=== PATIENT | female | born 1945 | race Caucasian/White ===

== ENCOUNTER 2016-12-02 12:06 | Inpatient (IN) | payer MEDICARE, BC ==
[2016-12-02] VITALS (17 sets, daily range): BP systolic 126–172; BP diastolic 62–72; PULSE 88–111; RESP 21–24; TEMP 100.2–103; O2SAT 86–100
[~2016-12-02] VITALS: Ht 167.6 cm; Wt 89.3 kg
--- NOTE | 2016-12-02 12:22 | PD ---
HPI Chief Complaint: Respiratory Distress Time Seen by Provider: 12:17 Travel History International Travel<30 days: No Contact w/Intl Traveler<30days: No Traveled to known affect area: No History of Present Illness HPI 71-year-old female presents to the emergency department via EMS for evaluation of fever, shortness breath, vomiting, diarrhea, abdominal pain She reports that she's been short of breath for the past 2 weeks, but worsened in the past 2 days. Shes on vacation from the [facility]. Patient has been seeing a director cardiac for her shortness of breath, does not have any results. She states that she is not a current smoker, but a previous smoker. She is also complaining of abdominal pain that started 2 days ago with vomiting and diarrhea. Patient has severe tenderness to mild palpation. She has history of [place]. She states she had CHF in the past, but states she is not currently have it. She does not remember what medications she is currently on. She is unsure when she started running a fever. EMS gave her 500 mL normal saline IV bolus, Zofran 4 mg IV. Patient reports extreme fatigue. PFSH Past Medical History Cardiovascular Problems: Yes ?: Not Social History Alcohol Use: No Tobacco Use: No (previous) Substance Use: No Allergies-Medications (Allergen,Severity, Reaction): Coded Allergies: No Known Allergies (Unverified , 12/02/16) Reported Meds & Prescriptions Reported Meds & Active Scripts Active Reported Acidophilus Probiotic (Lactobacillus) 100 Mg (1 Billion Cell) Cap 2 Tab PO DAILY Vitamin D-1000 (Cholecalciferol) 1,000 Unit Tab 2,000 Units PO DAILY Aspirin 81 (Aspirin) 81 Mg Tabdr 81 Mg PO DAILY Rosuvastatin (Rosuvastatin Calcium) 40 Mg Tab 40 Mg PO DAILY Patanol Opth 0.1% (Olopatadine HCl) 0.1 % Drops 1 Drop EACH EYE BID PRN Nitrostat SL (Nitroglycerin) 0.4 Mg Subl 0.4 Mg SL DIRECTED PRN 1 tablet under the tongue as needed for chest pain. Repeat every 5 minutes for a total of 3 DOSES or call 911 if NO relief. Furosemide 20 Mg Tab 20 Mg PO DAILY Celecoxib 200 Mg Cap 200 Mg PO HS Metoprolol Succinate ER 24 HR (Metoprolol Succinate) 50 Mg Tab 50 Mg PO DAILY Gabapentin 300 Mg Cap 300 Mg PO TID Ezetimibe 10 Mg Tab 10 Mg PO DAILY Cephalexin 500 Mg Cap 500 Mg PO DIRECTED FOR DENTIST VISIT Omeprazole 40 Mg Cap 40 Mg PO DAILY Review of Systems Except as stated in HPI: all other systems reviewed are Neg Physical Exam Narrative GENERAL: Well-nourished, well-developed female patient, temp 100.2 Orally. SKIN: Focused skin assessment warm/dry. HEAD: Normocephalic. Atraumatic. EYES: No scleral icterus. No injection or drainage. NECK: Supple, trachea midline. No JVD or lymphadenopathy. CARDIOVASCULAR: Regular rate and rhythm without murmurs, gallops, or rubs. Bilateral radial and pedal pulses 2+. RESPIRATORY: Breath sounds equal bilaterally. Patient is using accessory muscles. Lung sounds diminished. Patient is hypoxic on room air, tachypneic. GASTROINTESTINAL: Abdomen distended, severe diffuses tenderness to palpation. MUSCULOSKELETAL: No cyanosis, or edema. BACK: Nontender without obvious deformity. No CVA tenderness. Data Data Last Documented VS Vital Signs Date Time Temp Pulse Resp B/P (MAP) Pulse Ox O2 Delivery O2 Flow Rate FiO2 12/02/16 15:00 101.8 98 22 131/66 (87) 98 Non-Rebreather 15.00 Orders Orders Complete Blood Count With Diff (12/02/16 12:17) Comprehensive Metabolic Panel (12/02/16 12:17) B-Type Natriuretic Peptide (12/02/16 12:17) Act Partial Throm Time (Ptt) (12/02/16 12:17) Prothrombin Time / Inr (Pt) (12/02/16 12:17) Magnesium (Mg) (12/02/16 12:17) Ckmb (Isoenzyme) Profile (12/02/16 12:17) Troponin I (12/02/16 12:17) Arterial Blood Gas (Abg) (12/02/16 12:17) Urinalysis - C+S If Indicated (12/02/16 12:17) Blood Culture (12/02/16 12:17) Iv Access Insert/Monitor (12/02/16 12:17) Electrocardiogram (12/02/16 12:17) Ecg Monitoring (12/02/16 12:17) Oximetry (12/02/16 12:17) Oxygen Administration (12/02/16 12:17) Chest, Single Ap (12/02/16 12:17) Cath For Specimen (12/02/16 12:17) Lactic Acid Sepsis Protocol (12/02/16 12:17) Lipase (12/02/16 12:17) Sodium Chlor 0.9% 1000 Ml Inj (Ns 1000 M (12/02/16 12:30) Sodium Chlor 0.9% 1000 Ml Inj (Ns 1000 M (12/02/16 12:30) Morphine Inj (Morphine Inj) (12/02/16 12:45) Acetaminophen Supp (Tylenol Supp) (12/02/16 13:00) Acetaminophen (Tylenol) (12/02/16 13:00) Prochlorperazine Inj (Compazine Inj) (12/02/16 13:15) Urine Culture (12/02/16 12:40) Metoclopramide Inj (Reglan Inj) (12/02/16 13:30) Ns + Kcl 40 Meq Inj (Ns + Kcl 40 Meq Inj (12/02/16 14:00) CKMB (12/02/16 12:40) CKMB% (12/02/16 12:40) Ct Abd/Pel W/O Iv Contrast (12/02/16 ) Vancomycin Inj (Vancomycin Inj) (12/02/16 14:00) Piperacil-Tazo 3.375 Gm Premix (Zosyn 3. (12/02/16 14:00) Magnesium Sulfate 1 Gm Premix (Magnesium (12/02/16 14:15) Admit Order (Ed Use Only) (12/02/16 16:06) Labs Laboratory Tests Test 12/02/16 12:40 12/02/16 15:20 White Blood Count 3.1 TH/MM3 Red Blood Count 3.74 MIL/MM3 Hemoglobin 11.5 GM/DL Hematocrit 33.7 % Mean Corpuscular Volume 90.2 FL Mean Corpuscular Hemoglobin 30.7 PG Mean Corpuscular Hemoglobin Concent 34.0 % Red Cell Distribution Width 14.6 % Platelet Count 115 TH/MM3 Mean Platelet Volume 7.6 FL Neutrophils (%) (Auto) 86.8 % Lymphocytes (%) (Auto) 8.7 % Monocytes (%) (Auto) 3.8 % Eosinophils (%) (Auto) 0.2 % Basophils (%) (Auto) 0.5 % Neutrophils # (Auto) 2.7 TH/MM3 Lymphocytes # (Auto) 0.3 TH/MM3 Monocytes # (Auto) 0.1 TH/MM3 Eosinophils # (Auto) 0.0 TH/MM3 Basophils # (Auto) 0.0 TH/MM3 CBC Comment DIFF FINAL Differential Comment Prothrombin Time 13.9 SEC Prothromb Time International Ratio 1.2 RATIO Activated Partial Thromboplast Time 24.3 SEC Urine Color YELLOW Urine Turbidity HAZY Urine pH 5.5 Urine Specific [place] 1.009 Urine Protein 30 mg/dL Urine Glucose (UA) NEG mg/dL Urine Ketones TRACE mg/dL Urine Occult Blood MOD Urine Nitrite NEG Urine Bilirubin NEG Urine Urobilinogen 2.0 MG/DL Urine Leukocyte Esterase TRACE Urine RBC 2 /hpf Urine WBC 12 /hpf Urine Squamous Epithelial Cells <1 /hpf Urine Amorphous Sediment FEW Urine Bacteria MANY /hpf Microscopic Urinalysis Comment CATH-CULTURE IND Blood Gas Puncture Site RT RADIAL Blood Gas Patient Temperature 98.6 Blood Gas HCO3 23 mmol/L Blood Gas Base Excess -0.3 mmol/L Blood Gas Oxygen Saturation 88 % Arterial Blood pH 7.43 Arterial Blood Partial Pressure CO2 36 mmHg Arterial Blood Partial Pressure O2 58 mmHG Arterial Blood Oxygen Content 14.2 Vol % Arterial Blood Carboxyhemoglobin 1.6 % Arterial Blood Methemoglobin 0.7 % Blood Gas Hemoglobin 11.5 G/DL Oxygen Delivery Device NASAL CANNULA Blood Gas Liter Flow 5 L/M Blood Urea Nitrogen 19 MG/DL Creatinine 2.44 MG/DL Random Glucose 123 MG/DL Total Protein 6.7 GM/DL Albumin 2.9 GM/DL Calcium Level 7.5 MG/DL Magnesium Level 0.8 MG/DL Alkaline Phosphatase 514 U/L Aspartate Amino Transf (AST/SGOT) 976 U/L Alanine Aminotransferase (ALT/SGPT) 228 U/L Total Bilirubin 3.2 MG/DL Sodium Level 140 MEQ/L Potassium Level 1.7 MEQ/L Chloride Level 105 MEQ/L Carbon Dioxide Level 22.8 MEQ/L Anion Gap 12 MEQ/L Estimat Glomerular Filtration Rate 19 ML/MIN Lactic Acid Level 2.5 mmol/L Total Creatine Kinase 735 U/L Creatine Kinase MB 1.0 NG/ML Creatine Kinase MB % 0.1 % Troponin I 0.07 NG/ML B-Type Natriuretic Peptide 193 PG/ML Lipase 187 U/L MDM Medical Decision Making Medical Screen Exam Complete: Yes Emergency Medical Condition: Yes Medical Record Reviewed: Yes Interpretation(s) chest x-ray = CONCLUSION: Cardiomegaly. Left lower lobe atelectasis versus pneumonia. CT abdomen/pelvis - CONCLUSION: 1. No evidence of acute abdominal or pelvic process. No masses are identified. 2. Cholelithiasis 3. Left lower lobe atelectasis versus pneumonia. 4. A large hiatal hernia is present. 5. Diverticulosis without evidence of diverticulitis. Differential Diagnosis sepsis vs. pneumonia vs. UTI vs. electrolyte abnormality vs. dehydration vs. diverticulitis vs. SBO Narrative Course 71 year old female presents to the emergency department for evaluation of fever , shortness of breath, abdominal pain, vomiting, diarrhea. EKG, CBC, CMP, Lipase, BNP, Magnesium, CK, Troponin, PTT, PT/INR, lactic acid, UA, blood cultures x2, ABG are ordered and pending. Chest x-ray is ordered and pending. Patient is given 2 L IV NS bolus, Tylenol 650 mg NJ, Morphine 2 mg IV for pain. EKG shows sinus tachycardia, heart rate 101, PVC. CBC shows leukopenia 3.1, neutrophil percentage 86.8. CMP shows hypokalemia of 1.7, BUN 19, creatinine 2.44, glucose 123. Lipase is 187. BNP is 193. CK is 735. Troponin is 0.07. Magnesium is 0.8. Lactic acid is 2.5. UA shows trace leukocyte esterase, 12 WBC. ABG shows O2 sat 88, pO2 58. Chest x-ray shows Cardiomegaly. Left lower lobe atelectasis versus pneumonia. Patient is given Vancomycin 1 gm IV, Zosyn 3.375 gm IV. Patient is started on NS with 40 meq KCL at 125 ml/hr. She is given Magnesium 1 gm IV x2. Patient is now oxygen saturation of 86% on 6 L O2 NC. She is placed on a nonrebreather. CT abdomen/pelvis without contrast due to elevated creatinine is ordered and shows 1. No evidence of acute abdominal or pelvic process. No masses are identified; 2. Cholelithiasis; 3. Left lower lobe atelectasis versus pneumonia; 4. A large hiatal hernia is present; 5. Diverticulosis without evidence of diverticulitis. Videogame Designer is paged for admission. Dr. Menditea accepted admission. She would like the patient to be placed on a 50% venti mask. Respiratory is notified. Sepsis Criteria SIRS Criteria (2 or more): Temp > 100.9 or < 96.8, Heart rate over 90, WBC > 29732, < 4000 or > 10% bands Sepsis Criteria (SIRS+source): Infect source susp/known Severe Sepsis (+one): Lactate >2 Diagnosis Primary Impression: Pneumonia Qualified Codes: J18.1 - Lobar pneumonia, unspecified organism Additional Impressions: Sepsis Qualified Codes: A41.9 - Sepsis, unspecified organism UTI (urinary tract infection) Qualified Codes: N30.00 - Acute cystitis without hematuria Hypokalemia Hypomagnesemia Acute kidney injury Admitting Information Admitting Physician Requests: Admit Giuliana Mclaughlin Dec 02, 2016 12:22
[2016-12-02] MEDS ORDERED: SODIUM CHLOR 0.9% 1000 ML INJ 1,000 ML IV ONE ×3 (12:30→22:15)
[2016-12-02] MEDS ORDERED: MORPHINE SULFATE 2 MG/ML INJ IV PUSH ONE (12:45)
[2016-12-02 12:57] LABS: AUTOMATED NEUTROPHIL # 2.7 TH/MM3 (1.8-7.7); BASOPHIL % 0.5 % (0.0-2.0); EOSINOPHIL % 0.2 % (0.0-4.0); HEMATOCRIT 33.7 % (35.0-46.0); HEMOGLOBIN 11.5 GM/DL (11.6-15.3); LYMPH % 8.7 % (9.0-44.0); LYMPHOCYTE # 0.3 TH/MM3 (1.0-4.8); MEAN CELL VOLUME 90.2 FL (80.0-100.0); MEAN CORPUSCULAR HEMOGLOBIN 30.7 PG (27.0-34.0); MEAN PLATELET VOLUME 7.6 FL (7.0-11.0); MONO % 3.8 % (0.0-8.0); MONOCYTE # 0.1 TH/MM3 (0-0.9); NEUT % 86.8 % (16.0-70.0); PLATELET COUNT 115 TH/MM3 (150-450); RED BLOOD COUNT 3.74 MIL/MM3 (4.00-5.30); RED CELL DISTRIBUTION WIDTH 14.6 % (11.6-17.2); WHITE BLOOD COUNT 3.1 TH/MM3 (4.0-11.0)
[2016-12-02] MEDS ORDERED: ACETAMINOPHEN 650 MG SUPP RECTAL ONE (13:00)
[2016-12-02] MEDS ORDERED: ACETAMINOPHEN 325 MG TAB PO ONE (13:00)
[2016-12-02 13:05] LABS: INTERNATIONAL NORMALIZED RATIO 1.2 RATIO; PROTHROMBIN TIME - PATIENT 13.9 SEC (9.8-11.6)
[2016-12-02 13:13] LABS: AMORPHOUS SEDIMENT, URINE FEW; BACTERIA, URINE MANY /hpf; BILIRUBIN, URINE NEG (NEG); BLOOD, URINE MOD (NEG); GLUCOSE,URINE NEG (NEG); KETONE, URINE TRACE mg/dL (NEG); NITRITE,URINE NEG (NEG); PH, URINE 5.5 (5.0-8.5); SQUAMOUS EPITHELIAL CELL URINE <1 /hpf (0-5); URINE COLOR YELLOW (YELLW/STRAW); URINE LEUKOCYTE ESTERASE TRACE (NEG)
[2016-12-02] MEDS ORDERED: PROCHLORPERAZINE INJ 10 MG/2 ML VIAL IV PUSH ONE (13:15)
[2016-12-02 13:23] LABS: LACTIC ACID SEPSIS PROTOCOL 2.5 mmol/L (0.4-2.0)
[2016-12-02] MEDS ORDERED: METOCLOPRAMIDE HCL 10 MG/2 ML VIAL IV PUSH ONE (13:30)
[2016-12-02 13:32] LABS: ALBUMIN 2.9 GM/DL (3.4-5.0); ALKALINE PHOSPHATASE 514 U/L (45-117); ALT (GPT) 228 U/L (10-53); AST (GOT) 976 U/L (15-37); BICARBONATE 22.8 MEQ/L (21.0-32.0); BLOOD UREA NITROGEN 19 MG/DL (7-18); CALCIUM 7.5 MG/DL (8.5-10.1); CHLORIDE 105 MEQ/L (98-107); CREATININE 2.44 MG/DL (0.50-1.00); GLOMERULAR FILTRATION RATE 19 ML/MIN (>89); GLUCOSE,RANDOM 123 MG/DL (74-106); LIPASE 187 U/L (73-393); MAGNESIUM 0.8 MG/DL (1.5-2.5); SODIUM (NA) 140 MEQ/L (136-145); TOTAL BILIRUBIN ADULT 3.2 MG/DL (0.2-1.0); TOTAL PROTEIN 6.7 GM/DL (6.4-8.2); TROPONIN I 0.07 NG/ML (0.02-0.05)
[2016-12-02] MEDS ORDERED: NS + KCL 40 MEQ INJ 1,000 ML IV SCH (14:00)
[2016-12-02] MEDS ORDERED: PIPERACIL-TAZO 3.375 GM PREMIX 50 ML IV ONE (14:00)
[2016-12-02] MEDS ORDERED: VANCOMYCIN INJ 1,000 MG in SODIUM CHLOR 0.9% 250 ML INJ 250 ML IV ONE (14:00)
--- NOTE | 2016-12-02 14:04 | PD ---
Physical Exam Date Seen by Provider: Dec 02, 2016 Time Seen by Provider: 13:00 Narrative I am seeing this patient with IRMA Hoover. This is a 71-year-old female presents today with complaints of fever, weakness, abdominal pain. She reports the abdominal pain has been present for about 2 days. She reports cough and shortness of breath for up to a month. She reports nausea vomiting. Patient also reports stronger colored urine smell than normal. Data Data Last Documented VS Vital Signs Date Time Temp Pulse Resp B/P (MAP) Pulse Ox O2 Delivery O2 Flow Rate FiO2 12/02/16 15:00 101.8 98 22 131/66 (87) 98 Non-Rebreather 15.00 Orders Orders Complete Blood Count With Diff (12/02/16:17) Comprehensive Metabolic Panel (12/02/16:17) B-Type Natriuretic Peptide (12/02/16 12:17) Act Partial Throm Time (Ptt) (12/02/16 12:17) Prothrombin Time / Inr (Pt) (12/02/16 12:17) Magnesium (Mg) (12/02/16 12:17) Ckmb (Isoenzyme) Profile (12/02/16 12:17) Troponin I (12/02/16 12:17) Arterial Blood Gas (Abg) (12/02/16 12:17) Urinalysis - C+S If Indicated (12/02/16 12:17) Blood Culture (12/02/16 12:17) Iv Access Insert/Monitor (12/02/16 12:17) Electrocardiogram (12/02/16 12:17) Ecg Monitoring (12/02/16 12:17) Oximetry (12/02/16 12:17) Oxygen Administration (12/02/16 12:17) Chest, Single Ap (12/02/16 12:17) Cath For Specimen (12/02/16 12:17) Lactic Acid Sepsis Protocol (12/02/16 12:17) Lipase (12/02/16 12:17) Sodium Chlor 0.9% 1000 Ml Inj (Ns 1000 M (12/02/16 12:30) Sodium Chlor 0.9% 1000 Ml Inj (Ns 1000 M (12/02/16 12:30) Morphine Inj (Morphine Inj) (12/02/16 12:45) Acetaminophen Supp (Tylenol Supp) (12/02/16 13:00) Acetaminophen (Tylenol) (12/02/16 13:00) Prochlorperazine Inj (Compazine Inj) (12/02/16 13:15) Urine Culture (12/02/16 12:40) Metoclopramide Inj (Reglan Inj) (12/02/16 13:30) Ns + Kcl 40 Meq Inj (Ns + Kcl 40 Meq Inj (12/02/16 14:00) CKMB (12/02/16 12:40) CKMB% (12/02/16 12:40) Ct Abd/Pel W/O Iv Contrast (12/02/16 ) Vancomycin Inj (Vancomycin Inj) (12/02/16 14:00) Piperacil-Tazo 3.375 Gm Premix (Zosyn 3. (12/02/16 14:00) Magnesium Sulfate 1 Gm Premix (Magnesium (12/02/16 14:15) Admit Order (Ed Use Only) (12/02/16 16:06) Labs Laboratory Tests Test 12/02/16 12:40 12/02/16 15:20 White Blood Count 3.1 TH/MM3 Red Blood Count 3.74 MIL/MM3 Hemoglobin 11.5 GM/DL Hematocrit 33.7 % Mean Corpuscular Volume 90.2 FL Mean Corpuscular Hemoglobin 30.7 PG Mean Corpuscular Hemoglobin Concent 34.0 % Red Cell Distribution Width 14.6 % Platelet Count 115 TH/MM3 Mean Platelet Volume 7.6 FL Neutrophils (%) (Auto) 86.8 % Lymphocytes (%) (Auto) 8.7 % Monocytes (%) (Auto) 3.8 % Eosinophils (%) (Auto) 0.2 % Basophils (%) (Auto) 0.5 % Neutrophils # (Auto) 2.7 TH/MM3 Lymphocytes # (Auto) 0.3 TH/MM3 Monocytes # (Auto) 0.1 TH/MM3 Eosinophils # (Auto) 0.0 TH/MM3 Basophils # (Auto) 0.0 TH/MM3 CBC Comment DIFF FINAL Differential Comment Prothrombin Time 13.9 SEC Prothromb Time International Ratio 1.2 RATIO Activated Partial Thromboplast Time 24.3 SEC Urine Color YELLOW Urine Turbidity HAZY Urine pH 5.5 Urine Specific [place] 1.009 Urine Protein 30 mg/dL Urine Glucose (UA) NEG mg/dL Urine Ketones TRACE mg/dL Urine Occult Blood MOD Urine Nitrite NEG Urine Bilirubin NEG Urine Urobilinogen 2.0 MG/DL Urine Leukocyte Esterase TRACE Urine RBC 2 /hpf Urine WBC 12 /hpf Urine Squamous Epithelial Cells <1 /hpf Urine Amorphous Sediment FEW Urine Bacteria MANY /hpf Microscopic Urinalysis Comment CATH-CULTURE IND Blood Gas Puncture Site RT RADIAL Blood Gas Patient Temperature 98.6 Blood Gas HCO3 23 mmol/L Blood Gas Base Excess -0.3 mmol/L Blood Gas Oxygen Saturation 88 % Arterial Blood pH 7.43 Arterial Blood Partial Pressure CO2 36 mmHg Arterial Blood Partial Pressure O2 58 mmHG Arterial Blood Oxygen Content 14.2 Vol % Arterial Blood Carboxyhemoglobin 1.6 % Arterial Blood Methemoglobin 0.7 % Blood Gas Hemoglobin 11.5 G/DL Oxygen Delivery Device NASAL CANNULA Blood Gas Liter Flow 5 L/M Blood Urea Nitrogen 19 MG/DL Creatinine 2.44 MG/DL Random Glucose 123 MG/DL Total Protein 6.7 GM/DL Albumin 2.9 GM/DL Calcium Level 7.5 MG/DL Magnesium Level 0.8 MG/DL Alkaline Phosphatase 514 U/L Aspartate Amino Transf (AST/SGOT) 976 U/L Alanine Aminotransferase (ALT/SGPT) 228 U/L Total Bilirubin 3.2 MG/DL Sodium Level 140 MEQ/L Potassium Level 1.7 MEQ/L Chloride Level 105 MEQ/L Carbon Dioxide Level 22.8 MEQ/L Anion Gap 12 MEQ/L Estimat Glomerular Filtration Rate 19 ML/MIN Lactic Acid Level 2.5 mmol/L 1.4 mmol/L Total Creatine Kinase 735 U/L Creatine Kinase MB 1.0 NG/ML Creatine Kinase MB % 0.1 % Troponin I 0.07 NG/ML B-Type Natriuretic Peptide 193 PG/ML Lipase 187 U/L [facility] Medical Record Reviewed: Yes Supervised Visit with BRITTANI: Yes Narrative Course 71-year-old female presents with complaints of abdominal pain, fevers, nausea vomiting. The patient also reports shortness of breath progressive over the last month. The patient is noted to have a potassium of 1.7. Mag was also 0.8. The patient has a white blood cell count 3.1. She's been started on vancomycin Zosyn. She will be admitted to the intensive care unit. Critical Care Narrative Aggregate critical care time was 45 minutes. Time to perform other separately billable procedures was not included in the critical care time. My time did not include minutes spent treating any other patients simultaneously or on activities that did not directly contribute to the patient's treatment. The services I provided to this patient were to treat and/or prevent clinically significant deterioration that could result in: I provided critical care services requiring my management, as noted below: Chart data review, documentation time, medication orders and management, vital sign assessments/reviewing monitor data, ordering and reviewing lab tests, ordering and interpreting/reviewing x-rays and diagnostic studies, care of the patient and discussion of the patient with the admitting physicians. Diagnosis Primary Impression: Pneumonia Qualified Codes: J18.1 - Lobar pneumonia, unspecified organism Additional Impressions: Acute kidney injury Sepsis Qualified Codes: A41.9 - Sepsis, unspecified organism UTI (urinary tract infection) Qualified Codes: N30.00 - Acute cystitis without hematuria Hypomagnesemia Hypokalemia Admitting Information Admitting Physician Requests: Admit Carlos Torres MD Dec 02, 2016 14:04
--- NOTE | 2016-12-02 14:44 | RADRPT ---
EXAM DATE/TIME: 12/02/2016 12:56 [facility] COMPARISON: No previous studies available for comparison. INDICATIONS : Shortness of breath. MEDICAL HISTORY : Hypertension. Hypercholesterolemia. Myocardial infarction. SURGICAL HISTORY : Cardiac cath ENCOUNTER: Initial ACUITY: 1 day PAIN SCORE: 0/10 LOCATION: Bilateral chest FINDINGS: The cardiac silhouette is enlarged in transverse diameter. There is prominence of the aortic knob is with calcification characteristic of atherosclerotic vascular disease. There is left lower lobe atele ctasis versus pneumonia. There is subsegmental atelectasis in the right base. There is mild scoliotic deformity convex to the right. CONCLUSION: Cardiomegaly. Left lower lobe atelectasis versus pneumonia. Royal Messer MD on December 02, 2016 at 14:40 Board Certified Radiologist. This report was verified electronically.
[2016-12-02] MEDS ORDERED: GABA300C5 PO (15:24)
[2016-12-02] MEDS ORDERED: OMEP40CA2 PO (15:24)
[2016-12-02] MEDS ORDERED: CEPH500C PO (15:24)
[2016-12-02] MEDS ORDERED: FURO20TA PO (15:24)
[2016-12-02] MEDS ORDERED: OLOP.1%O EACH EYE (15:24)
[2016-12-02] MEDS ORDERED: ROSU1TAB10 PO (15:24)
[2016-12-02] MEDS ORDERED: METO50TA11 PO (15:24)
[2016-12-02] MEDS ORDERED: VITA1000 PO (15:24)
[2016-12-02] MEDS ORDERED: ACID100C PO (15:24)
[2016-12-02] MEDS ORDERED: NITR0.4S SL (15:24)
[2016-12-02] MEDS ORDERED: ASPI-110 PO (15:24)
[2016-12-02] MEDS ORDERED: EZET1TAB8 PO (15:24)
[2016-12-02] MEDS ORDERED: CELE1CAP8 PO (15:24)
[2016-12-02] MEDS: MAGNESIUM SULFATE 1 GM PREMIX 100 ML IV SCH ×2 (15:43→17:46)
--- NOTE | 2016-12-02 15:58 | RADRPT ---
EXAM DATE/TIME: 12/02/2016 15:09 [facility] COMPARISON: No previous studies available for comparison. INDICATIONS : Abdomen pain. ORAL CONTRAST: No oral contrast ingested. RADIATION DOSE: 10.59 CTDIvol (mGy) MEDICAL HISTORY : Cardiovascular disease. Hypertension. SURGICAL HISTORY : None. ENCOUNTER: Initial ACUITY: 1 day PAIN SCALE: 5/10 LOCATION: Bilateral abdomen TECHNIQUE: Volumetric scanning of the abdomen and pelvis was performed. Using automated exposure control and ad justment of the mA and/or kV according to patient size, radiation dose was kept as low as reasonably achievable to obtain optimal diagnostic quality images. DICOM format image data is available electro nically for review and comparison. FINDINGS: There is left lower lobe atelectasis versus pneumonia. A large hiatal hernia is present. There is chuck vation left hemidiaphragm. The liver and spleen are normal in size and no focal defects are identifie d. There are multiple stones within the gallbladder without wall thickening or pericholecystic fluid the largest measuring 2 cm area in The pancreas demonstrates no evidence of mass and there is no dila tation of the pancreatic duct. The adrenal glands and kidneys appear normal bilaterally. No hydroneph rosis or mass lesions are identified. Examination of the pelvis demonstrates no evidence of free fluid or pelvic mass. No abnormally enlarg ed inguinal or retroperitoneal lymph nodes are present. The bladder is unremarkable. There is diverti culosis without evidence of diverticulitis. CONCLUSION: 1. No evidence of acute abdominal or pelvic process. No masses are identified. 2. Cholelithiasis 3. Left lower lobe atelectasis versus pneumonia. 4. A large hiatal hernia is present. 5. Diverticulosis without evidence of diverticulitis. Royal Messer MD on December 02, 2016 at 15:49 Board Certified Radiologist. This report was verified electronically.
[2016-12-02] MEDS ORDERED: MAGNESIUM HYDROXIDE SUSP 30 ML CUP PO PRN (16:15)
[2016-12-02] MEDS ORDERED: ACETAMINOPHEN 325 MG TAB PO PRN (16:15)
[2016-12-02] MEDS ORDERED: MISCELLANEOUS NURSING INFORMATION XX SCH (16:15)
[2016-12-02] MEDS ORDERED: CHLORHEXIDINE GLUCONATE 2 % 1 PACK (2 CLOTHS) TOP PRN (16:15)
[2016-12-02] MEDS ORDERED: BISACODYL 10 MG SUPP RECTAL PRN (16:15)
[2016-12-02] MEDS ORDERED: LACTULOSE SYRUP 20 GM/30 ML CUP PO PRN (16:15)
[2016-12-02] MEDS ORDERED: SENNOSIDES 8.6 MG TAB PO PRN (16:15)
[2016-12-02] MEDS ORDERED: RESP: ALBUTEROL 2.5 MG/IPRATROPIUM 0.5 MG NEB (PRN) INH (16:15)
[2016-12-02] MEDS ORDERED: GLUCAGON 1 MG/ML VIAL OTHER PRN (16:45)
[2016-12-02] MEDS ORDERED: DEXTROSE 50% IN WATER 50 ML VIAL(D50) IV PUSH PRN (16:45)
[2016-12-02] MEDS ORDERED: Vancomycin Consult Pharmacy 1 EA OTHER SCH (17:00)
[2016-12-02] MEDS: INSULIN NovoLIN REGULAR SUPPLEMENTAL SCALE SQ SCH ×2 (17:00→20:59)
--- NOTE | 2016-12-02 17:39 | HHI.HP ---
HPI Service Critical Care Medicine Primary Care Physician No Primary Care Physician Admission Diagnosis pneumonia, severe sepsis, hypokalemia, hypomagnesemia, COCO Diagnosis: Travel History International Travel<30 Days: No Contact w/Intl Traveler <30 Da: No Traveled to Known Affected Are: No History of Present Illness This is a 71-year-old female presents to the ED via EMS for evaluation of fever , shortness breath, vomiting, diarrhea, abdominal pain She reports that she's been short of breath for the past 2 weeks, but has progressed in the past 2 days. Patient has been seeing a digital sales representative for her shortness of breath, is not on home oxygen. The patient reported she has a history of smoking. She is also complaining of abdominal pain that started 2 days ago with vomiting and diarrhea. Patient has severe tenderness to mild palpation. She has history of GA. She received 500 mL normal saline IV bolus, and Zofran 4 mg IV. Critical care medicine was consulted History PFSH Past Medical History Cardiovascular Problems: Yes ?: Not Social History Alcohol Use: Yes 4 drinks of scotch/day Tobacco Use: No (previous) Substance Use: No Allergies-Medications Allergies-Medications (Allergen,Severity, Reaction): Coded Allergies: No Known Allergies (Unverified , 12/02/16) Reported Meds & Prescriptions Reported Meds & Active Scripts Active Reported Acidophilus Probiotic (Lactobacillus) 100 Mg (1 Billion Cell) Cap 2 Tab PO DAILY Vitamin D-1000 (Cholecalciferol) 1,000 Unit Tab 2,000 Units PO DAILY Aspirin 81 (Aspirin) 81 Mg Tabdr 81 Mg PO DAILY Rosuvastatin (Rosuvastatin Calcium) 40 Mg Tab 40 Mg PO DAILY Patanol Opth 0.1% (Olopatadine HCl) 0.1 % Drops 1 Drop EACH EYE BID PRN Nitrostat SL (Nitroglycerin) 0.4 Mg Subl 0.4 Mg SL DIRECTED PRN 1 tablet under the tongue as needed for chest pain. Repeat every 5 minutes for a total of 3 DOSES or call 911 if NO relief. Furosemide 20 Mg Tab 20 Mg PO DAILY Celecoxib 200 Mg Cap 200 Mg PO HS Metoprolol Succinate ER 24 HR (Metoprolol Succinate) 50 Mg Tab 50 Mg PO DAILY Gabapentin 300 Mg Cap 300 Mg PO TID Ezetimibe 10 Mg Tab 10 Mg PO DAILY Cephalexin 500 Mg Cap 500 Mg PO DIRECTED FOR DENTIST VISIT Omeprazole 40 Mg Cap 40 Mg PO DAILY ROS Review of Systems Except as stated in HPI: all other systems reviewed are Neg Past Family Social History Allergies: Coded Allergies: No Known Allergies (Unverified , 12/02/16) Past Medical History Pneumonia 2012, GA 1993, status post angioplasty 2, hypertension Past Surgical History Right total knee replacement, anterior cervical discectomy and fusion Reported Medications see MAR Active Ordered Medications see MAR Family History Mother from myasthenia gravis age 32, father [place] age 66, sister alive and well Social History Previous history of smoking nonquantifiable, drinks 4 scotches per day, denies illicit drug use Physical Exam Vital Signs Vital Signs Date Time Temp Pulse Resp B/P (MAP) Pulse Ox O2 Delivery O2 Flow Rate FiO2 12/02/16 15:00 101.8 98 22 131/66 (87) 98 Non-Rebreather 15.00 12/02/16 14:20 96 Non-Rebreather 15.00 12/02/16 14:19 86 Nasal Cannula 6.00 12/02/16 14:00 102 24 172/62 (98) 93 Nasal Cannula 6.00 12/02/16 13:00 103 22 94 Nasal Cannula 6.00 12/02/16 12:57 103.0 12/02/16 12:56 91 Nasal Cannula 5.00 12/02/16 12:54 94 Nasal Cannula 6.00 12/02/16 12:54 94 Nasal Cannula 6.00 12/02/16 12:14 100.2 102 24 138/64 (88) 87 Physical Exam GENERAL: Critically ill appearing appropriately stated age female in moderate distress secondary to abdominal pain SKIN: Warm and dry. HEAD: Atraumatic. Normocephalic. EYES: Pupils equal and round. No scleral icterus. No injection or drainage. Extraocular movements intact ENT: No nasal bleeding or discharge. Mucous membranes pink and moist. Uvula midline. Mallampati classification 1 NECK: Trachea midline. No JVD. CARDIOVASCULAR: Normal rate, regular rhythm. Telemetry sinus rhythm RESPIRATORY: No accessory muscle use. Clear to auscultation. Breath sounds equal bilaterally. GASTROINTESTINAL: Abdomen soft,nondistended, tender to palpation. No guarding. MUSCULOSKELETAL: Extremities without clubbing, cyanosis, or edema. No obvious deformities. NEUROLOGICAL: Awake and alert. RASS 0. No gross focal/sensory deficits. Follows commands in all 4 extremities. Laboratory Laboratory Tests Test 12/02/16 12:40 12/02/16 15:20 White Blood Count 3.1 Red Blood Count 3.74 Hemoglobin 11.5 Hematocrit 33.7 Mean Corpuscular Volume 90.2 Mean Corpuscular Hemoglobin 30.7 Mean Corpuscular Hemoglobin Concent 34.0 Red Cell Distribution Width 14.6 Platelet Count 115 Mean Platelet Volume 7.6 Neutrophils (%) (Auto) 86.8 Lymphocytes (%) (Auto) 8.7 Monocytes (%) (Auto) 3.8 Eosinophils (%) (Auto) 0.2 Basophils (%) (Auto) 0.5 Neutrophils # (Auto) 2.7 Lymphocytes # (Auto) 0.3 Monocytes # (Auto) 0.1 Eosinophils # (Auto) 0.0 Basophils # (Auto) 0.0 CBC Comment DIFF FINAL Differential Comment Prothrombin Time 13.9 Prothromb Time International Ratio 1.2 Activated Partial Thromboplast Time 24.3 Urine Color YELLOW Urine Turbidity HAZY Urine pH 5.5 Urine Specific [place] 1.009 Urine Protein 30 Urine Glucose (UA) NEG Urine Ketones TRACE Urine Occult Blood MOD Urine Nitrite NEG Urine Bilirubin NEG Urine Urobilinogen 2.0 Urine Leukocyte Esterase TRACE Urine RBC 2 Urine WBC 12 Urine Squamous Epithelial Cells <1 Urine Amorphous Sediment FEW Urine Bacteria MANY Microscopic Urinalysis Comment CATH-CULTURE IND Blood Gas Puncture Site RT RADIAL Blood Gas Patient Temperature 98.6 Blood Gas HCO3 23 Blood Gas Base Excess -0.3 Blood Gas Oxygen Saturation 88 Arterial Blood pH 7.43 Arterial Blood Partial Pressure CO2 36 Arterial Blood Partial Pressure O2 58 Arterial Blood Oxygen Content 14.2 Arterial Blood Carboxyhemoglobin 1.6 Arterial Blood Methemoglobin 0.7 Blood Gas Hemoglobin 11.5 Oxygen Delivery Device NASAL CANNULA Blood Gas Liter Flow 5 Blood Urea Nitrogen 19 Creatinine 2.44 Random Glucose 123 Total Protein 6.7 Albumin 2.9 Calcium Level 7.5 Magnesium Level 0.8 Alkaline Phosphatase 514 Aspartate Amino Transf (AST/SGOT) 976 Alanine Aminotransferase (ALT/SGPT) 228 Total Bilirubin 3.2 Sodium Level 140 Potassium Level 1.7 Chloride Level 105 Carbon Dioxide Level 22.8 Anion Gap 12 Estimat Glomerular Filtration Rate 19 Lactic Acid Level 2.5 1.4 Total Creatine Kinase 735 Creatine Kinase MB 1.0 Creatine Kinase MB % 0.1 Troponin I 0.07 B-Type Natriuretic Peptide 193 Lipase 187 Date/Time Source Procedure Growth Status 12/02/16 12:40 Blood Peripheral Aerobic Blood Culture Pending Received 12/02/16 12:40 Blood Peripheral Anaerobic Blood Culture Pending Received 12/02/16 12:40 Urine Catheterized Urine Urine Culture Pending Received Result Diagram: 12/02/16 1240 12/02/16 1240 Septic Shock Reassessment Heart: Regular rate and rhythm Lungs: Clear Skin: Warm Peripheral Pulses: Bounding Right Radial Bounding Left Radial Capillary Refill: Brisk Caprini VTE Risk Assessment Caprini VTE Risk Assessment: Mod/High Risk (score >= 2) Caprini Risk Assessment Model Point Value = 1 Point Value = 2 Point Value = 3 Point Value = 5 Age 41-60 Minor surgery BMI > 25 kg/m2 Swollen legs Varicose veins or History of unexplained or recurrent spontaneous Oral contraceptives or hormone replacement Sepsis (< 1 month) Serious lung disease, including pneumonia (< 1 month) Abnormal pulmonary function Acute myocardial infarction Congestive heart failure (< 1 month) History of inflammatory bowel disease Medical patient at bed rest Age 61-74 Arthroscopic surgery Major open surgery (> 45 min) Laparoscopic surgery (> 45 min) Malignancy Confined to bed (> 72 hours) Immobilizing plaster cast Central venous access Age >= 75 History of VTE Family history of VTE Factor V Leiden Prothrombin [id number] Lupus anticoagulant Anticardiolipin antibodies Elevated serum homocysteine Heparin-induced thrombocytopenia Other congenital or acquired thrombophilia Stroke (< 1 month) Elective arthroplasty Hip, pelvis, or leg fracture Acute spinal cord injury (< 1 month) Prophylaxis Regimen Total Risk Factor Score Risk Level Prophylaxis Regimen 0-1 Low Early ambulation 2 Moderate Order ONE of the following: *Sequential Compression Device (SCD) *Heparin 5000 units SQ BID 3-4 Higher Order ONE of the following medications: *Heparin 5000 units SQ TID *Enoxaparin/Lovenox 40 mg SQ daily (WT < 150 kg, CrCl > 30 mL/min) *Enoxaparin/Lovenox 30 mg SQ daily (WT < 150 kg, CrCl > 10-29 mL/min) *Enoxaparin/Lovenox 30 mg SQ BID (WT < 150 kg, CrCl > 30 mL/min) AND/OR *Sequential Compression Device (SCD) 5 or more Highest Order ONE of the following medications: *Heparin 5000 units SQ TID (Preferred with Epidurals) *Enoxaparin/Lovenox 40 mg SQ daily (WT < 150 kg, CrCl > 30 mL/min) *Enoxaparin/Lovenox 30 mg SQ daily (WT < 150 kg, CrCl > 10-29 mL/min) *Enoxaparin/Lovenox 30 mg SQ BID (WT < 150 kg, CrCl > 30 mL/min) AND *Sequential Compression Device (SCD) Assessment and Plan Assessment and Plan ASSESSMENT This is a critically ill-appearing 71-year-old female in moderate distress with severe abdominal pain presenting with art hiatal hernia and diverticulitis with concomitant possible pneumonia, fatigue and malaise and notable transaminitis. Admit to ICU. Abdominal pain Hiatal hernia Diverticulitis Cholelithiasis Transaminitis Nausea Hyperlipidemia Hypertension History of GA Coronary artery disease-S/P angioplasty 2 History of systolic CHF Respiratory insufficiency Probable community-acquired pneumonia Hypokalemia Hypomagnesemia Alcohol use disorder Elevated creatinine Pancytopenia Transaminitis PLAN Plan by systems: Neurologic: Neurochecks per ICU protocol Ativan 1 mg every 4 hours when necessary Monitor for signs of alcohol withdrawal Seizure precautions Tylenol 650 mg every 6 hours when necessary for temp greater than 101 Morphine 2 mg every 4 hours when necessary for pain 6-10 Respiratory: Maintain O2 sat greater than 92% Bronchodilators every 4 hours PRN Cardiovascular: Initial troponin 0.07, follow-up troponin levels Telemetry showing sinus rhythm Patient's being seen regularly by furnace builder in [place] Shanda MD , obtain cardiology records regarding function Patient's home meds include ASA 81mg, Metoprolol 50 mg ER (recently discontinued secondary to hypotension by furnace builder 3 weeks ago), Rosvustatin Continue Lasix 20mg/day Renal: Monitor urinary output Avoid nephrotoxins, creatinine 2.4-will hold omeprazole -- Strict I/Os FEN/GI: Replete electrolytes Follow-up BMP IV fluid NS with 20KCL @ 84cc/hr, patient received 2 g of magnesium in ED. Received 2 L normal saline bolus in ED Maintain nothing by mouth status 12/02 CT abdomen pelvis-diverticulosis without diverticulitis, large hiatal hernia, cholelithiasis, no acute process Obtain ultrasound abdomen-focus biliary tree AST 976, ALT 228, T bili3.2 F/U Direct bili results Hold statin in the setting of elevated LFTs Heme/ID: Begin empiric Zosyn and vancomycin Follow-up urine and blood cultures Obtain-Hematology oncology consult Lactate 2.5-> 1.7 Endocrine: Nuchal small monitoring per ICU protocol -- SSI Prophylaxis: GI Prophylaxis Famotidine DVT Prophylaxis -- SCDs Heparin 5000 SQ BID Lines: Peripheral IVs providing adequate access at this time central line if indicated Dispo: my billing statement This patient remains critically ill with one or more organ systems which are or may become a threat to life. I have spent in excess of 60 minutes discontinuously in the care and management of this patient. This time is exclusive of procedures, and includes, but is not limited to, evaluation of the patient, review of the medical record, discussions with family, consultants, nursing staff, or respiratory therapy, and documentation in the medical record. Code Status Full Discussed Condition With , patient and ED RN at bedside Quiana Mendieta MD Dec 02, 2016 17:39
[2016-12-02] MEDS ORDERED: MORPHINE SULFATE 2 MG/ML INJ IV PUSH PRN (17:45)
[2016-12-02] MEDS: NS + KCL 20 MEQ INJ 1,000 ML IV SCH (17:46)
[2016-12-02] MEDS: HEPARIN SODIUM - SQ 10,000 UNITS/ML VIAL SQ SCH (17:49)
[2016-12-02] MEDS ORDERED: POTASSIUM CHLORIDE 25 MEQ EFFERVESCENT TAB PO ONE (19:15)
--- NOTE | 2016-12-02 20:04 | MB ---
cc: MYRNA PRINCE M.D. DATE OF CONSULTATION: 12/02/2016. REASON FOR CONSULTATION: Consult requested by Dr. Mendieta, sleeping car service attendant, for evaluation of mild pancytopenia. HISTORY OF PRESENT ILLNESS: Nova is a 71-year-old female who lives in [place]. She came to this area three to four days ago to [place] time [place] the beach. The patient stated that she has developed severe diarrhea with abdominal pain. Subsequently she noticed fever and vomiting. She took Imodium. When she started having shortness of breath, they called paramedics and the patient was brought into the emergency room. The patient is in the emergency room. Her CBC showed white count 3.1, hemoglobin 11.5, hematocrit 33.7, platelet count is 115,000. The differential count is normal except the absolute lymphocyte count is mildly low at 300. The comprehensive metabolic profile is severely abnormal. The potassium is only 1.7. BUN is 19. Creatinine is 2.44. GFR is 19. Glucose is 123. Calcium is 7.5. Magnesium is 0.8. Total bilirubin is 3.2. AST is 976. ALT is 228. Alkaline phosphatase is 514. CPK is 735. Albumin is 2.9. BNP is 193. Lactic acid is 2.5. The patient is admitted by the sleeping car service attendant. The patient has been started on antibiotics, Zosyn and vancomycin. The patient is also receiving IV potassium and magnesium for severe hypokalemia and hypomagnesemia.I have been asked to see the patient for mild pancytopenia. The patient had a CT scan of the abdomen and pelvis which does not show any acute findings.The patient has cholelithiasis without any cholecystitis. She has a left lower lobe atelectasis versus pneumonia. A large hiatal hernia is present. She also has diverticulosis without evidence of diverticulitis. The chest x-ray shows cardiomegaly and left lower lobe atelectasis versus pneumonia. REVIEW OF SYSTEMS: The rest of the review of systems is negative. PAST MEDICAL HISTORY: 1. Coronary artery disease. 2. Status post myocardial infarction. 3. Hypertension. 4. Hypercholesterolemia. PAST SURGICAL HISTORY: 1. Right knee replacement. 2. Anterior cervical diskectomy. ALLERGIES: None. MEDICATIONS: Medications prior to going the hospital were: 1. Lactobacillus. 2. Vitamin D. 3. Aspirin. 4. Rosuvastatin eye drops. 5. Nitrostat sublingual. 6. Lasix. 7. Celecoxib. 8. Metoprolol. 9. Gabapentin. 10. mibe. 11. Omeprazole. FAMILY HISTORY: Noncontributory. SOCIAL HISTORY: The patient used to smoke cigarettes and quit a long time ago. Does not drink alcohol. PHYSICAL EXAMINATION: GENERAL: This is a well-developed, ill-appearing white female who is in mild distress. VITAL SIGNS: Temperature 101.8, heart rate is 98, blood pressure is 131/66. HEAD, EYES, EARS, NOSE, THROAT: Pupils equal, round and reactive to light and accommodation. The sclerae are icteric. Oral mucosa is dry. No lymphadenopathy noted. LUNGS: Clear. No wheezes, rales or rhonchi. HEART: Regular rate and rhythm. ABDOMEN: Abdomen soft and nontender. No hepatosplenomegaly. EXTREMITIES: No pedal edema. NEUROLOGIC: Awake, alert and oriented times three. SKIN: No significant lesions noted. ASSESSMENT: 1. Mild pancytopenia. This is due to bone marrow suppression from sepsis. 2. High fever with chills consistent with sepsis syndrome. 3. Acute renal failure. 4. Severe electrolyte imbalances such as severe hypokalemia and severe hypomagnesemia. 5. Elevated liver enzymes with no significant liver pathology noted on the CT scan. This could be shock liver. 6. The patient has lactic acidosis from sepsis and/or renal failure. PLAN: I have reviewed her available records and I have discussed with the patient regarding her pancytopenia. The CBC showed white count 3.1, hemoglobin 11.5, hematocrit is 33.7 and platelet count is 115,000. The differential count is normal except the absolute lymphocyte count is 300. The patient has sepsis. I expect her pancytopenia to get worse in the next several days if sepsis is not under control. The sepsis does cause bone marrow suppression. We will monitor her CBC closely and provide blood product support as needed. The patient is at high risk to go into [facility] as well. Her PT is 13.9, INR is 1.2, APTT is 24.3. The urinalysis shows many bacteria and 12 WBCs. Urine culture and blood cultures have been done today and the results are still pending. Further recommendations based on the hospital stay. Thank you for asking my opinion MD BANDAR Franks/ANDI /7:07 PM /7:47 PM MTDDavid
--- NOTE | 2016-12-02 20:08 | RADRPT ---
EXAM DATE/TIME: 12/02/2016 19:12 [facility] COMPARISON: No previous studies available for comparison. INDICATIONS : Gallstones. MEDICAL HISTORY : Hypertension. Hypercholesterolemia. Heart attack. SURGICAL HISTORY : Right knee surgery. Cardiac catheterization. ENCOUNTER: Initial ACUITY: 1 day PAIN SCORE: Nonresponsive. LOCATION: Abdomen. MEASUREMENTS: LIVER: 15.7 cm length COMMON DUCT: 12 mm RIGHT KIDNEY: 10.2 x 5.7 x 6.3 cm SPLEEN: 10.4 cm length FINDINGS: LIVER: Normal echotexture without focal lesion or ductal dilatation. COMMON DUCT: No intraluminal mass or stone visualized. GALLBLADDER: Multiple large stones are identified in the gallbladder. There is gallbladder wall thickening and tra ce pericholecystic fluid. PANCREAS: The visualized portions are within normal limits. RIGHT KIDNEY: No hydronephrosis, stone or mass. SPLEEN: No focal lesion. CONCLUSION: 1. Cholelithiasis with wall thickening and trace pericholecystic fluid. 2. No evidence of biliary duct distention. 3. No other significant abnormality. Jak Hughes MD on December 02, 2016 at 20:05 Board Certified Radiologist. This report was verified electronically.
[2016-12-02 20:17] LABS: ALBUMIN 2.6 GM/DL (3.4-5.0); DIRECT BILIRUBIN ADULT 3.2 MG/DL (0.0-0.2)
[2016-12-02 20:20] LABS: INDIRECT BILIRUBIN 0.8 MG/DL (0.0-0.8); TOTAL PROTEIN 6.1 GM/DL (6.4-8.2); TROPONIN I 0.11 NG/ML (0.02-0.05)
[2016-12-02] MEDS: LORazepam 2 MG/ML VIAL IV PUSH PRN (20:23)
[2016-12-02 20:53] LABS: BICARBONATE 24.4 MEQ/L (21.0-32.0); CALCIUM 7.4 MG/DL (8.5-10.1); CREATININE 2.51 MG/DL (0.50-1.00)
[2016-12-02] MEDS: POTASSIUM CHLOR 20 MEQ PREMIX 100 ML IV SCH (20:58)
[2016-12-02] MEDS: PIPERACIL-TAZO 3.375 GM PREMIX 50 ML IV SCH (20:59)
[2016-12-02] MEDS: SODIUM CHLORIDE 0.9% FLUSH 10 ML FLUSH IV FLUSH SCH (21:00)
[2016-12-02] MEDS: CHLORHEXIDINE GLUCONATE 2 % 1 PACK (2 CLOTHS) TOP SCH (21:00)
[2016-12-02] MEDS: FAMOTIDINE 20 MG/2 ML VIAL IV PUSH SCH (21:00)
[2016-12-02] MEDS: DOCUSATE SODIUM 50 MG/SENNA 8.6 MG TAB PO SCH (21:00)
[2016-12-02 21:57] LABS: CALCIUM-PROTEIN CORRECTED 7.7 MG/DL (8.5-10.1); TOTAL PROTEIN 6.4 GM/DL (6.4-8.2)
[2016-12-02] MEDS ORDERED: ETOMIDATE 40 MG/20 ML VIAL IV PUSH ONE (22:15)
[2016-12-02] MEDS ORDERED: PROPOFOL 1000 MG/100 ML INJ 100 ML IV PRN (22:15)
[2016-12-02] MEDS ORDERED: TERBUTALINE INJ 1 MG/ML AMP SQ PRN (22:15)
[2016-12-02] MEDS ORDERED: ROCURONIUM INJ 100 MG/10 ML VIAL IV ONE (22:15)
[2016-12-02] MEDS ORDERED: MAGNESIUM SULFATE 1 GM PREMIX 100 ML IV ONE (22:15)
[2016-12-02] MEDS: NOREPINEPHRINE INJ 4 MG in SODIUM CHLOR 0.9% 250 ML INJ 246 ML IV PRN (22:32)
[2016-12-02] MEDS: VASOPRESSIN 40 U/D5W 100 ML Titrate, Post Cardiac Surgery IV PRN ×2 (23:00)
--- NOTE | 2016-12-02 23:07 | PD.PROCEDR ---
Central Line Procedure REASON FOR PROCEDURE Central venous access PROCEDURE PERFORMED Central line placement: L IJ CVL CONSENT Informed consent for procedure was obtained. The risks and benefits of the procedure were discussed to include but limited to bleeding, clot formation, infection, and even . ANESTHESIA Local injection of 1% Lidocaine DESCRIPTION OF THE PROCEDURE The patient was placed in supine, mild Trendelenburg position. The area was exposed and cleansed with ChloraPrep, times two. Large sterile drape was used to cover the patient, with the site exposed, under sterile conditions including cap, face mask, sterile gown, and sterile gloves. On single attempt, the introducer needle was inserted with negative pressure in syringe and venous flash was obtained. The guide wire was then advanced without any restriction and the needle was removed. The dilator was used without any complications. Using Seldinger technique the TLC catheter was advanced over the guide wire to a depth of 20 centimeters. The guide wire was removed. All ports were aspirated with dark venous blood return and flushed easily with sterile saline. All ports were capped. Antibiotic disc was placed around central line at puncture site. The central line was secured to the skin with two interrupted 2.0 silk sutures. The area was bandaged with sterile see-through central line bandage. RADIOLOGICAL DATA Ultrasound guidance was used to locate L IJ. Doppler/color flow was used to confirm venous flow. COMPLICATIONS: No apparent complications ESTIMATED BLOOD LOSS: Less than 1 cc. Adarsh Reyes MD Dec 02, 2016 23:07
--- NOTE | 2016-12-02 23:09 | PD.PROCEDR ---
Procedure Note Procedure DATE: 12/02/2016 PROCEDURE: Orotracheal intubation INDICATION: Acute respiratory failure DETAILS OF PROCEDURE The patient was placed in optimal position and preoxygenated with 100% FiO2 via bag valve mask. At the start oxygen saturation was 100%. The patient was administered 20 mg etomidate IV and 50 mg etomidate IV. I entered the oropharynx with a size 4 GVL Glidescope blade and obtained a grade 2 view of the airway. On single attempt a size 7.5 cuffed endotracheal tube was passed through the vocal cords. Correct tube location was confirmed with end tidal CO2 detector and by auscultating over bilateral lung dennis. The endotracheal tube was secured with adhesive tape at a depth of 23 cm at the lips. The patient was connected to the ventilator. The patient tolerated the procedure well without any apparent complications. Oxygen saturations were maintained greater than 95% all times. STAT chest x-ray pending at time of dictation. Adarsh Reyes MD Dec 02, 2016 23:09
--- NOTE | 2016-12-02 23:10 | PD.PROCEDR ---
Procedure Note Procedure DATE: 12/02/2016 PROCEDURE: Left femoral arterial catheter placement INDICATION: Manic access DETAILS OF PROCEDURE The patient was placed in supine position. The skin was cleansed with Chloraprep. Additional barrier precautions included large sterile drape, sterile gloves, sterile gown, face mask, and hat. 1% lidocaine was used for local anesthesia. Under direct ultrasound guidance and on the initial attempt, the artery was accessed with an introducer needle. The guide wire was advanced. Using Seldinger technique 20 gauge arterial catheter was placed. The guide wire was removed. The catheter was connected to a transducer line and flushed with saline. The video monitor displayed normal arterial wave forms. The catheter was secured with 2-0 silk. A sterile dressing with antibiotic disc was applied. ESTIMATED BLOOD LOSS: minimal COMPLICATIONS: None Adarsh Reyes MD Dec 02, 2016 23:10
--- NOTE | 2016-12-02 23:45 | RADRPT ---
EXAM DATE/TIME: 12/02/2016 23:12 [facility] COMPARISON: CHEST SINGLE AP, December 02, 2016, 12:56. INDICATIONS : ET Tube and left IJ central line placement. MEDICAL HISTORY : Hypertension. Hypercholesterolemia. Myocardial infarction. SURGICAL HISTORY : Cardiac cath ENCOUNTER: Subsequent ACUITY: 1 day PAIN SCORE: Non-responsive. LOCATION: Bilateral chest FINDINGS: The cardiac silhouette is enlarged in transverse diameter. There are findings of congestive heart martine lure with interstitial and alveolar opacity bilaterally. There is left lower lobe atelectasis versus pneumonia. Endotracheal tube is in good position above the real. A left sided internal jugular vein catheter is in place without pneumothorax with its tip in the superior vena cava. CONCLUSION: 1. Satisfactory position of endotracheal tube as above. 2. Uncomplicated line placement. No evidence of pneumothorax. Royal Messer MD on December 02, 2016 at 23:42 Board Certified Radiologist. This report was verified electronically.
[2016-12-03] VITALS (22 sets, daily range): BP systolic 94–149; BP diastolic 56–80; PULSE 87–108; RESP 24–27; TEMP 98–100.4; O2SAT 94–100
[2016-12-03] MEDS: POTASSIUM CHLOR 20 MEQ PREMIX 100 ML IV SCH ×2 (00:55→22:17)
[2016-12-03] MEDS ORDERED: SODIUM BICARBONATE 8.4% INJ 50 MEQ/50 ML SYR IV PUSH ONE (01:45)
[2016-12-03] MEDS: MAGNESIUM SULFATE 1 GM PREMIX 100 ML IV SCH ×2 (02:10→03:19)
[2016-12-03] MEDS: NOREPINEPHRINE INJ 4 MG in SODIUM CHLOR 0.9% 250 ML INJ 246 ML IV PRN ×3 (03:15→16:52)
[2016-12-03] MEDS: HEPARIN SODIUM - SQ 10,000 UNITS/ML VIAL SQ SCH ×2 (05:40→17:55)
[2016-12-03] MEDS: PIPERACIL-TAZO 3.375 GM PREMIX 50 ML IV SCH ×4 (05:40→22:12)
[2016-12-03] MEDS: NS + KCL 20 MEQ INJ 1,000 ML IV SCH (05:41)
[2016-12-03 05:47] LABS: AUTOMATED NEUTROPHIL # 6.5 TH/MM3 (1.8-7.7); BASOPHIL % 0.2 % (0.0-2.0); EOSINOPHIL % 0.3 % (0.0-4.0); HEMATOCRIT 32.5 % (35.0-46.0); HEMOGLOBIN 11.3 GM/DL (11.6-15.3); LYMPH % 9.2 % (9.0-44.0); LYMPHOCYTE # 0.7 TH/MM3 (1.0-4.8); MEAN CELL VOLUME 90.6 FL (80.0-100.0); MEAN CORPUSCULAR HEMOGLOBIN 31.4 PG (27.0-34.0); MEAN CORPUSCULAR HGB CONC 34.6 % (32.0-36.0); MEAN PLATELET VOLUME 9.3 FL (7.0-11.0); MONO % 2.3 % (0.0-8.0); MONOCYTE # 0.2 TH/MM3 (0-0.9); PLATELET COUNT 107 TH/MM3 (150-450); RED BLOOD COUNT 3.59 MIL/MM3 (4.00-5.30); WHITE BLOOD COUNT 7.4 TH/MM3 (4.0-11.0)
[2016-12-03] MEDS ORDERED: PHARMACY ORDERED LAB ONE (06:00)
[2016-12-03 06:12] LABS: ALBUMIN 2.3 GM/DL (3.4-5.0); ALKALINE PHOSPHATASE 349 U/L (45-117); ALT (GPT) 215 U/L (10-53); AST (GOT) 630 U/L (15-37); BICARBONATE 18.6 MEQ/L (21.0-32.0); BLOOD UREA NITROGEN 19 MG/DL (7-18); CALCIUM 6.9 MG/DL (8.5-10.1); CALCIUM-PROTEIN CORRECTED 7.7 MG/DL (8.5-10.1); CHLORIDE 110 MEQ/L (98-107); CREATININE 2.61 MG/DL (0.50-1.00); GLOMERULAR FILTRATION RATE 18 ML/MIN (>89); GLUCOSE,RANDOM 180 MG/DL (74-106); HDL CHOLESTEROL 16.6 MG/DL (40.0-60.0); MAGNESIUM 2.8 MG/DL (1.5-2.5); PHOSPHORUS 0.9 MG/DL (2.5-4.9); SODIUM (NA) 146 MEQ/L (136-145); TOTAL BILIRUBIN ADULT 5.5 MG/DL (0.2-1.0); TOTAL PROTEIN 5.6 GM/DL (6.4-8.2); TRIGLYCERIDES 102 MG/DL (42-150); TROPONIN I 0.49 NG/ML (0.02-0.05)
[2016-12-03 06:42] LABS: CHOLESTEROL LESS THAN 50 MG/DL (120-200); CHOLESTEROL/ HDL RATIO 3.01 RATIO; LDL CHOLESTEROL 13 MG/DL (0-99)
[2016-12-03] MEDS: POTASSIUM CHLOR 40 MEQ PREMIX 100 ML IV SCH ×2 (08:11→12:32)
[2016-12-03] MEDS: INSULIN NovoLIN REGULAR SUPPLEMENTAL SCALE SQ SCH ×4 (08:11→21:00)
[2016-12-03] MEDS ORDERED: ARTIFICIAL TEARS OPTH SOLN 15 ML BTL EACH EYE PRN (08:15)
[2016-12-03] MEDS: FAMOTIDINE 20 MG/2 ML VIAL IV PUSH SCH (08:29)
[2016-12-03] MEDS: SODIUM CHLORIDE 0.9% FLUSH 10 ML FLUSH IV FLUSH SCH ×3 (08:30→22:13)
[2016-12-03] MEDS: HYDROCORTISONE SOD SUCCINATE 100 MG VIAL IV PUSH SCH ×2 (08:32→17:49)
--- NOTE | 2016-12-03 08:38 | HHI.CCPN ---
Subjective Remarks/Hospital Course This is a 71-year-old female presents to the ED via EMS for evaluation of fever , shortness breath, vomiting, diarrhea, abdominal pain She reports that she's been short of breath for the past 2 weeks, but has progressed in the past 2 days. Patient has been seeing a bleaching machine operator for her shortness of breath, is not on home oxygen. The patient reported she has a history of smoking. She is also complaining of abdominal pain that started 2 days ago with vomiting and diarrhea. Patient has severe tenderness to mild palpation. She has history of ID. She received 500 mL normal saline IV bolus, and Zofran 4 mg IV. Critical care medicine was consulted. Subjective: 12/03: Tmax 100.9. Last evening the patient was noted to have significant respiratory decompensation with requirement for emergent intubation. The patient subsequently became hemodynamically unstable requiring vasopressor support. Patient is lightly sedated, and continues to have abdominal pain, and hypoactive bowel sounds, GI has been consulted. HIDA scan previously scheduled for this morning, after discussion with Dr Goodrich , plan for cholecystostomy tube placement by IR. Ultrasound liver showed no biliary duct distention but notable thickened gallbladder wall. Objective Vital Signs Date Time Temp Pulse Resp B/P (MAP) Pulse Ox O2 Delivery O2 Flow Rate FiO2 12/03/16 06:00 94 12/03/16 05:51 122/63 12/03/16 04:10 100 50 12/03/16 04:00 98.0 24 12/02/16 21:32 Non-Rebreather 15.00 Intake and Output 12/03/16 12/03/16 12/04/16 08:00 16:00 00:00 Intake Total 1450 ml Output Total 375 ml Balance 1075 ml Result Diagram: 12/03/16 0417 12/03/16 0417 Other Results Laboratory Tests Test 12/02/16 12:40 12/02/16 21:36 12/02/16 23:22 Blood Gas Puncture Site RT RADIAL RT RADIAL NICOLE Blood Gas Patient Temperature 98.6 98.6 98.6 Blood Gas HCO3 23 mmol/L (22-26) 22 mmol/L (22-26) 15 mmol/L (22-26) Blood Gas Base Excess -0.3 mmol/L (-2-2) -5.1 mmol/L (-2-2) -9.5 mmol/L (-2-2) Blood Gas Oxygen Saturation 88 % (90-100) 90 % (90-100) 97 % (90-100) Arterial Blood pH 7.43 (7.380-7.420) 7.17 (7.380-7.420) 7.32 (7.380-7.420) Arterial Blood Partial Pressure CO2 36 mmHg (38-42) 64 mmHg (38-42) 31 mmHg (38-42) Arterial Blood Partial Pressure O2 58 mmHG (61-120) 82 mmHg (61-120) 167 mmHg (61-120) Arterial Blood Oxygen Content 14.2 Vol % (12.0-20.0) 13.8 Vol % (12.0-20.0) 17.3 Vol % (12.0-20.0) Arterial Blood Carboxyhemoglobin 1.6 % (0-4) 1.4 % (0-4) 1.4 % (0-4) Arterial Blood Methemoglobin 0.7 % (0-2) 1.2 % (0-2) 1.1 % (0-2) Blood Gas Hemoglobin 11.5 G/DL (12.0-16.0) 10.8 G/DL (12.0-16.0) 12.5 G/DL (12.0-16.0) Oxygen Delivery Device NASAL CANNULA NRB VENTILATOR Blood Gas Liter Flow 5 L/M 15 L/M Blood Gas Ventilator Setting SEE COMMENT Blood Gas Inspired Oxygen 100 % Imaging Last 24 hours Impressions Chest X-Ray 12/02/16 2305 Signed Impressions: Service Date/Time: Friday, December 02, 2016 23:12 - CONCLUSION: 1. Satisfactory position of endotracheal tube as above. 2. Uncomplicated line placement. No evidence of pneumothorax. Royal Messer MD Chest X-Ray 12/02/16 1217 Signed Impressions: Service Date/Time: Friday, December 02, 2016 12:56 - CONCLUSION: Cardiomegaly. Left lower lobe atelectasis versus pneumonia. Royal Messer MD Objective Remarks GENERAL: Critically ill appearing appropriately stated age female intubated and sedated SKIN: Warm and dry. HEAD: Atraumatic. Normocephalic. EYES: Pupils equal and round. No scleral icterus. No injection or drainage. ENT: No nasal bleeding or discharge. Mucous membranes pink and moist. Orotracheally intubated NECK: Trachea midline. No JVD. CARDIOVASCULAR: Normal rate, regular rhythm. Telemetry sinus rhythm RESPIRATORY: No accessory muscle use. Clear to auscultation. Breath sounds equal bilaterally. GASTROINTESTINAL: Abdomen soft,nondistended, tender to palpation. No guarding. MUSCULOSKELETAL: Extremities without clubbing, cyanosis, or edema. No obvious deformities. NEUROLOGICAL: RASS -2. No gross focal/sensory deficits. Follows commands in all 4 extremities. Procedures 12/02-abdominal ultrasound 12/03- percutaneous cholecystostomy tube placement Urinary Catheter: Yes Peterson insert reason: Measure Accurate Output Date of Insertion: Dec 02, 2016 Vascular Central Line Catheter: Yes Assessment to: Continue Line: Central Venous Catheter Side: Left Location: Femoral Reason for Continuation Vasoactive medication administration A/P Assessment and Plan ASSESSMENT This is a critically ill-appearing 71-year-old female in moderate distress with severe abdominal pain presenting with art hiatal hernia and diverticulitis with septic shock concominant cardiogenic shock, hepatic deterioration, requiring aggressive vasopressor support. Guarded prognosis. Abdominal pain Hiatal hernia Diverticulitis Cholelithiasis with cholecystitis Transaminitis Nausea Hyperlipidemia Hypertension History of ID Coronary artery disease-S/P angioplasty 2 History of systolic CHF Acute hypoxemic respiratory failure Probable community-acquired pneumonia Hypokalemia Alcohol use disorder Elevated creatinine Pancytopenia Transaminitis Acute renal failure Multisystem organ failure secondary to septic shock PLAN Plan by systems: Neurologic: Neurochecks per ICU protocol Discontinue Propofol, fentanyl infusion infusion for ventilator synchrony Ativan 1 mg every 4 hours when necessary for anxiety Monitor for signs of alcohol withdrawal Seizure precautions Tylenol 650 mg every 6 hours when necessary for temp greater than 101 Respiratory: Maintain O2 sat greater than 92% Bronchodilators 36 hours scheduled, every 2 hours PRN 12/02-intubation 7.5 ETT Ventilator bundle Cardiovascular: Initial troponin 0.07->0.11->0.49. Possibly secondary to acute Kidney injury, Obtain echo-she has a significant past cardiac medical history Telemetry showing sinus rhythm Patient's being seen regularly by head athletic trainer/strength coach in [place] , Shanda Hall MD , obtain cardiology records regarding function Echo 10/03/15 per cardiology medical records([place])-normal LV function,EF 56%, mild septal LVH, mild TR, mild PAH Patient's home meds include ASA 81mg, Metoprolol 50 mg ER (recently discontinued secondary to hypotension by head athletic trainer/strength coach 3 weeks ago) will not restart secondary to hemodynamic instability, Rosvustatin at this time will not continue secondary to elevated LFT's continue to trend. Will resume aspirin 81 mg NYHA classification III-per previous records Lasix 20mg/day-on hold secondary to hemodynamic instability Begin Flowtrac monitoring Renal: Monitor urinary output Avoid nephrotoxins, creatinine 2.4-> 2.6 will hold omeprazole Follow-up urine sodium, urine creatinine - FeNa 1.75 , no eosinophils Consult nephrology Review of medical records obtained from PCP baseline creatinine 1.3 Sodium bicarbonate infusion @ 50cc/hr -- Strict I/Os FEN/GI: Replete electrolytes Monitor BMP IV fluid NS with 20KCL @ 84cc/hr, discontinued. patient received 2 g of magnesium in ED. Received 2 L normal saline bolus in ED Begin sodium bicarbonate infusion at 50 cc/hour Maintain NPO status 12/02 CT abdomen pelvis-diverticulosis without diverticulitis, large hiatal hernia, cholelithiasis, no acute process ultrasound abdomen-no biliary duct dilatation, cholelithiasis with cholecystitis trace pericholecystic fluid IR consult for cholecystostomy drain AST 976->753 ALT 228-> 215-downtrending possibly secondary to shock liver secondary to low cardiac output state Consult GI, Consult General Surgery- concern for possible ischemia with low cardiac output state, no melena or hematemesis-currently not a surgical candidate Hold statin in the setting of elevated LFTs Heme/ID: Continue empiric Zosyn and vancomycin ID consult Follow-up urine and blood cultures Follow-up Legionella, influenza strep antigen Obtain sputum culture Hematology oncology following Lactate 2.5-> 1.7 Endocrine: Glucose monitoring per ICU protocol -- SSI Prophylaxis: GI Prophylaxis Famotidine DVT Prophylaxis -- SCDs Heparin 5000 SQ BID Lines: PIV's x 2. Central line, Art line left femoral Dispo: This patient remains critically ill with one or more organ systems which are or may become a threat to life. I have spent in excess of 40 minutes discontinuously in the care and management of this patient. This time is exclusive of procedures, and includes, but is not limited to, evaluation of the patient, review of the medical record, discussions with family, consultants, nursing staff, or respiratory therapy, and documentation in the medical record. Physician Quiana Haywood MD Dec 03, 2016 08:38
[2016-12-03] MEDS ORDERED: POTASSIUM CHLORIDE 25 MEQ EFFERVESCENT TAB PO ONE (09:00)
[2016-12-03] MEDS ORDERED: RESP: ALBUTEROL 2.5 MG/IPRATROPIUM 0.5 MG NEB (PRN) NEB (09:00)
[2016-12-03] MEDS: CHLORHEXIDINE 0.12% (ORAL KIT) 15 ML CUP MT SCH ×2 (09:08→19:42)
--- NOTE | 2016-12-03 10:14 | OTSOAPIP ---
TIME SESSION COMPLETED: 9:05 TREATMENT TIME: 0 MINS. CHART REVIEWED. INTERDISCIPLINARY COMMUNICATION: NURSE "KEYANNA" REQUESTED TO HOLD TREATMENT TODAY, PATIENT WITH LOW POTASSIUM AND FLUCTUATING VITALS. PLAN: WILL SEE PATIENT NEXT TREATMENT DAY Therapist: STELLA LAGOS/Laura Signature on file
[2016-12-03] MEDS: RESP: ALBUTEROL 2.5 MG/IPRATROPIUM 0.5 MG NEB (SCH) NEB ×3 (10:17→21:08)
[2016-12-03 10:45] LABS: CREATININE, RANDOM URINE 67.2 MG/DL
[2016-12-03] MEDS ORDERED: PHENYLEPHRINE HCL 10 MG/ML VIAL ONE (11:31)
[2016-12-03] MEDS: fentaNYL DRIP 250 ML IV PRN (11:44)
--- NOTE | 2016-12-03 12:21 | PD.ONC.PN ---
Subjective Subjective Remarks Tmax 100.9 overnight. Remains intubated, sedated. Objective Data Date Time Temp Pulse Resp B/P (MAP) Pulse Ox O2 Delivery O2 Flow Rate FiO2 12/03/16 10:03 97 50 12/03/16 09:04 104 109/55 12/03/16 08:43 99.2 90 24 104/62 (76) 100 94/56 (69) 12/03/16 06:00 94 12/03/16 05:51 93 122/63 12/03/16 05:51 93 122/63 12/03/16 04:10 100 50 12/03/16 04:00 87 12/03/16 04:00 50 12/03/16 04:00 98.0 87 24 123/80 (94) 100 149/79 (102) 12/03/16 03:15 88 139/78 12/03/16 02:56 87 142/78 12/03/16 02:00 87 12/03/16 00:22 100 90 12/03/16 00:00 90 12/03/16 00:00 100.1 90 24 126/78 (94) 100 138/75 (96) 12/03/16 00:00 50 12/02/16 23:00 96 129/71 12/02/16 22:45 100 100 12/02/16 22:34 90 12/02/16 22:32 83 92/55 12/02/16 22:00 109 12/02/16 21:32 89 Non-Rebreather 15.00 12/02/16 20:08 100.9 111 24 130/72 (91) 88 12/02/16 20:03 12/02/16 20:00 95 Venturi Mask 50 12/02/16 19:00 88 23 136/72 (93) 94 Venturi Mask 6.00 12/02/16 18:00 90 24 129/66 (87) 94 Venturi Mask 6.00 12/02/16 17:19 94 Venturi Mask 6.00 50 12/02/16 17:15 96 Venturi Mask 6.00 12/02/16 17:00 92 21 128/66 (86) 96 Non-Rebreather 15.00 12/02/16 16:00 100.8 96 24 126/65 (85) 98 Non-Rebreather 15.00 12/02/16 15:00 101.8 98 22 131/66 (87) 98 Non-Rebreather 15.00 12/02/16 14:20 96 Non-Rebreather 15.00 12/02/16 14:19 86 Nasal Cannula 6.00 12/02/16 14:00 102 24 172/62 (98) 93 Nasal Cannula 6.00 12/02/16 13:00 103 22 94 Nasal Cannula 6.00 12/02/16 12:57 103.0 12/02/16 12:56 91 Nasal Cannula 5.00 12/02/16 12:54 94 Nasal Cannula 6.00 12/02/16 12:54 94 Nasal Cannula 6.00 12/03/16 12/03/16 12/03/16 07:00 15:00 23:00 Intake Total 1500 ml 247 ml Output Total 375 ml Balance 1125 ml 247 ml Result Diagram: 12/03/16 0417 12/03/16 0417 Laboratory Results Laboratory Tests Test 12/02/16 12:40 12/02/16 15:20 12/02/16 19:35 12/02/16 20:00 White Blood Count 3.1 TH/MM3 Red Blood Count 3.74 MIL/MM3 Hemoglobin 11.5 GM/DL Hematocrit 33.7 % Mean Corpuscular Volume 90.2 FL Mean Corpuscular Hemoglobin 30.7 PG Mean Corpuscular Hemoglobin Concent 34.0 % Red Cell Distribution Width 14.6 % Platelet Count 115 TH/MM3 Mean Platelet Volume 7.6 FL Neutrophils (%) (Auto) 86.8 % Lymphocytes (%) (Auto) 8.7 % Monocytes (%) (Auto) 3.8 % Eosinophils (%) (Auto) 0.2 % Basophils (%) (Auto) 0.5 % Neutrophils # (Auto) 2.7 TH/MM3 Lymphocytes # (Auto) 0.3 TH/MM3 Monocytes # (Auto) 0.1 TH/MM3 Eosinophils # (Auto) 0.0 TH/MM3 Basophils # (Auto) 0.0 TH/MM3 CBC Comment DIFF FINAL Differential Comment Prothrombin Time 13.9 SEC Prothromb Time International Ratio 1.2 RATIO Activated Partial Thromboplast Time 24.3 SEC Urine Color YELLOW Urine Turbidity HAZY Urine pH 5.5 Urine Specific [place] 1.009 Urine Protein 30 mg/dL Urine Glucose (UA) NEG mg/dL Urine Ketones TRACE mg/dL Urine Occult Blood MOD Urine Nitrite NEG Urine Bilirubin NEG Urine Urobilinogen 2.0 MG/DL Urine Leukocyte Esterase TRACE Urine RBC 2 /hpf Urine WBC 12 /hpf Urine Squamous Epithelial Cells <1 /hpf Urine Amorphous Sediment FEW Urine Bacteria MANY /hpf Microscopic Urinalysis Comment CATH-CULTURE IND Blood Gas Puncture Site RT RADIAL Blood Gas Patient Temperature 98.6 Blood Gas HCO3 23 mmol/L Blood Gas Base Excess -0.3 mmol/L Blood Gas Oxygen Saturation 88 % Arterial Blood pH 7.43 Arterial Blood Partial Pressure CO2 36 mmHg Arterial Blood Partial Pressure O2 58 mmHG Arterial Blood Oxygen Content 14.2 Vol % Arterial Blood Carboxyhemoglobin 1.6 % Arterial Blood Methemoglobin 0.7 % Blood Gas Hemoglobin 11.5 G/DL Oxygen Delivery Device NASAL CANNULA Blood Gas Liter Flow 5 L/M Blood Urea Nitrogen 19 MG/DL 17 MG/DL Creatinine 2.44 MG/DL 2.51 MG/DL Random Glucose 123 MG/DL 132 MG/DL Total Protein 6.7 GM/DL 6.4 GM/DL Albumin 2.9 GM/DL 2.6 GM/DL Calcium Level 7.5 MG/DL 7.4 MG/DL Magnesium Level 0.8 MG/DL Alkaline Phosphatase 514 U/L 412 U/L Aspartate Amino Transf (AST/SGOT) 976 U/L 753 U/L Alanine Aminotransferase (ALT/SGPT) 228 U/L 215 U/L Total Bilirubin 3.2 MG/DL 4.0 MG/DL Sodium Level 140 MEQ/L 144 MEQ/L Potassium Level 1.7 MEQ/L 2.2 MEQ/L Chloride Level 105 MEQ/L 108 MEQ/L Carbon Dioxide Level 22.8 MEQ/L 24.4 MEQ/L Anion Gap 12 MEQ/L 12 MEQ/L Estimat Glomerular Filtration Rate 19 ML/MIN 19 ML/MIN Lactic Acid Level 2.5 mmol/L 1.4 mmol/L Total Creatine Kinase 735 U/L Creatine Kinase MB 1.0 NG/ML Creatine Kinase MB % 0.1 % Troponin I 0.07 NG/ML 0.11 NG/ML B-Type Natriuretic Peptide 193 PG/ML Lipase 187 U/L Protein Corrected Calcium 7.7 MG/DL Direct Bilirubin 3.2 MG/DL Indirect Bilirubin 0.8 MG/DL Nasal Screen MRSA (PCR) MRSA NOT DETECTED Test 12/02/16 21:36 12/02/16 23:22 12/03/16 00:08 12/03/16 04:17 Blood Gas Puncture Site RT RADIAL NICOLE Blood Gas Patient Temperature 98.6 98.6 Blood Gas HCO3 22 mmol/L 15 mmol/L Blood Gas Base Excess -5.1 mmol/L -9.5 mmol/L Blood Gas Oxygen Saturation 90 % 97 % Arterial Blood pH 7.17 7.32 Arterial Blood Partial Pressure CO2 64 mmHg 31 mmHg Arterial Blood Partial Pressure O2 82 mmHg 167 mmHg Arterial Blood Oxygen Content 13.8 Vol % 17.3 Vol % Arterial Blood Carboxyhemoglobin 1.4 % 1.4 % Arterial Blood Methemoglobin 1.2 % 1.1 % Blood Gas Hemoglobin 10.8 G/DL 12.5 G/DL Oxygen Delivery Device NRB VENTILATOR Blood Gas Liter Flow 15 L/M Blood Gas Ventilator Setting SEE COMMENT Blood Gas Inspired Oxygen 100 % Magnesium Level 1.3 MG/DL 2.8 MG/DL White Blood Count 7.4 TH/MM3 Red Blood Count 3.59 MIL/MM3 Hemoglobin 11.3 GM/DL Hematocrit 32.5 % Mean Corpuscular Volume 90.6 FL Mean Corpuscular Hemoglobin 31.4 PG Mean Corpuscular Hemoglobin Concent 34.6 % Red Cell Distribution Width 15.0 % Platelet Count 107 TH/MM3 Mean Platelet Volume 9.3 FL Neutrophils (%) (Auto) 88.0 % Lymphocytes (%) (Auto) 9.2 % Monocytes (%) (Auto) 2.3 % Eosinophils (%) (Auto) 0.3 % Basophils (%) (Auto) 0.2 % Neutrophils # (Auto) 6.5 TH/MM3 Lymphocytes # (Auto) 0.7 TH/MM3 Monocytes # (Auto) 0.2 TH/MM3 Eosinophils # (Auto) 0.0 TH/MM3 Basophils # (Auto) 0.0 TH/MM3 CBC Comment DIFF FINAL Differential Comment Blood Urea Nitrogen 19 MG/DL Creatinine 2.61 MG/DL Random Glucose 180 MG/DL Total Protein 5.6 GM/DL Albumin 2.3 GM/DL Calcium Level 6.9 MG/DL Phosphorus Level 0.9 MG/DL Alkaline Phosphatase 349 U/L Aspartate Amino Transf (AST/SGOT) 630 U/L Alanine Aminotransferase (ALT/SGPT) 215 U/L Total Bilirubin 5.5 MG/DL Sodium Level 146 MEQ/L Potassium Level 2.2 MEQ/L Chloride Level 110 MEQ/L Carbon Dioxide Level 18.6 MEQ/L Anion Gap 17 MEQ/L Estimat Glomerular Filtration Rate 18 ML/MIN Protein Corrected Calcium 7.7 MG/DL Troponin I 0.49 NG/ML Triglycerides Level 102 MG/DL Cholesterol Level LESS THAN 50 MG/DL LDL Cholesterol 13 MG/DL HDL Cholesterol 16.6 MG/DL Cholesterol/HDL Ratio 3.01 RATIO Random Vancomycin Level 11.9 COMMENT Test 12/03/16 09:40 12/03/16 11:43 Urine Eosinophils NONE SEEN /HPF Urine Random Creatinine 67.2 MG/DL Urine Random Sodium 66 MEQ/L Blood Gas Puncture Site ART LINE Blood Gas Patient Temperature 98.6 Blood Gas HCO3 15 mmol/L Blood Gas Base Excess -10.1 mmol/L Blood Gas Oxygen Saturation 92 % Arterial Blood pH 7.31 Arterial Blood Partial Pressure CO2 30 mmHg Arterial Blood Partial Pressure O2 80 mmHg Arterial Blood Oxygen Content 14.3 Vol % Arterial Blood Carboxyhemoglobin 1.3 % Arterial Blood Methemoglobin 1.4 % Blood Gas Hemoglobin 11.0 G/DL Oxygen Delivery Device VENTILATOR Blood Gas Ventilator Setting PRVC/AC Blood Gas Inspired Oxygen 50 % Culture Results Microbiology Date/Time Source Procedure Growth Status 12/02/16 12:40 Blood Peripheral Aerobic Blood Culture - Preliminary Enterobacter Species Klebsiella Pneumoniae Escherichia Coli Resulted 12/02/16 12:40 Anaerobic Blood Culture - Preliminary Gram Negative Primitivo Resulted 12/02/16 12:35 Blood Peripheral Aerobic Blood Culture - Preliminary Gram Negative Primitivo Resulted 12/02/16 12:35 Anaerobic Blood Culture - Preliminary Gram Negative Primitivo Resulted 12/03/16 09:40 Urine Catheterized Urine Streptococcus pneumoniae Antigen (M - Final PRESUMPTIVE NEGATIVE FOR STREPTOCOCCU... Complete 12/03/16 09:40 Urine Catheterized Urine Legionella Antigen - Final PRESUMPTIVE NEGATIVE FOR LEGIONELLA P... Complete 12/02/16 12:40 Urine Catheterized Urine Urine Culture Pending Received Imaging Studies Last 24 hours Impressions Chest X-Ray 12/02/16 2305 Signed Impressions: Service Date/Time: Friday, December 02, 2016 23:12 - CONCLUSION: 1. Satisfactory position of endotracheal tube as above. 2. Uncomplicated line placement. No evidence of pneumothorax. Royal Messer MD Chest X-Ray 12/02/16 1217 Signed Impressions: Service Date/Time: Teo, December 02, 2016 12:56 - CONCLUSION: Cardiomegaly. Left lower lobe atelectasis versus pneumonia. Royal Messer MD Administered Medications Medications (Trade) Dose Ordered Sig/Dhruv Route PRN Reason Start Time Stop Time Status Last Admin Dose Admin Sodium Chloride (NS Flush) 2 ml BID IV FLUSH 12/02/16 21:00 12/03/16 08:30 Famotidine (Pepcid Inj) 20 mg DAILY IV PUSH 12/02/16 21:00 12/03/16 08:29 Heparin Sodium (Porcine) (Heparin Inj) 5,000 units Q12H SQ 12/02/16 17:00 12/03/16 05:40 Miscellaneous Information 1 [id number] XX 12/02/16 16:15 12/02/16 16:15 Chlorhexidine Gluconate (Chlorhexidine 2% Cloth) 3 pack Taper DAILY@04 TOP 12/03/16 04:00 11/29/17 03:59 12/02/16 21:00 Lorazepam (Ativan Inj) 1 mg Q4H PRN IV PUSH ANXIETY 12/02/16 16:45 12/02/16 20:23 Piperacillin Sod/ Tazobactam Sod 50 ml @ 200 mls/hr Q6H IV 12/02/16 22:00 12/03/16 11:27 Morphine Sulfate (Morphine Inj) 2 mg Q4H PRN IV PUSH PAIN GREATER THAN 6 12/02/16 17:45 12/02/16 20:24 Chlorhexidine Gluconate (Peridex 0.12% Liq) 15 ml BID@08,20 MT 12/03/16 08:00 12/03/16 09:08 Propofol 100 ml @ 2.34 mls/hr TITRATE PRN IV SEDATION 12/02/16 22:15 12/02/16 22:31 Fentanyl Citrate 250 ml @ 5 mls/hr TITRATE PRN IV SEDATION 12/02/16 22:15 12/03/16 11:44 Norepinephrine Bitartrate 4 mg/ Sodium Chloride 250 ml @ 7.5 mls/hr TITRATE PRN IV Blood pressure management 12/02/16 22:15 12/03/16 09:04 Vasopressin 40 units/Dextrose 100 ml @ 1.5 mls/hr TITRATE PRN IV Blood Pressure Management 12/02/16 22:45 12/02/16 23:00 Sodium Chloride (NS Flush) DAILY IV FLUSH 12/03/16 09:00 12/03/16 09:08 Potassium Chloride 100 ml @ 25 mls/hr Q4H IV 12/03/16 08:00 12/03/16 15:59 12/03/16 08:11 Hydrocortisone Sodium Succinate (SoluCORTEF INJ) 100 mg Q8H IV PUSH 12/03/16 09:00 12/03/16 08:32 Albuterol/ Ipratropium (Duoneb Neb) 1 ampule Q6HR NEB NEB 12/03/16 10:00 12/03/16 10:17 Objective Remarks GENERAL: Elderly female, intubated sedated. SKIN: Warm and dry. peripheral IV's without bleeding. HEAD: Normocephalic. EYES: No injection or drainage. NECK: Supple, trachea midline. CARDIOVASCULAR: +S1/S2 RESPIRATORY: anterior dennis clear. GASTROINTESTINAL: Abdomen mildly distended. EXTREMITIES: No cyanosis NEUROLOGICAL: intubated, sedated. Assessment/Plan Problem List: (1) Pancytopenia ICD Codes: D61.818 - Other pancytopenia Plan: 12/03: WBC improved. platelets remain greater than 100K. will check coags. continue to monitor --due to bone marrow suppression from sepsis. --expect her pancytopenia to get worse in the next several days if sepsis is not under control. --monitor her CBC closely and provide blood product support as needed. (2) Sepsis ICD Codes: A41.9 - Sepsis, unspecified organism Status: Acute Assessment 71y/o female admitted with dyspnea, fever and vomiting. Hematology consulted for pancytopenia h/o Coronary artery disease. Status post myocardial infarction. hypertension. Hypercholesterolemia. Attending Statement The exam, history, and the medical decision-making described in the above note were completed with the assistance of the mid-level provider. I reviewed and agree with the findings presented. I attest that I had a [id number] encounter with the patient on the same day, and personally performed and documented my assessment and findings in the medical record. sedated, on vent leucopenia resolved. plat are mildly low . monitor cbc sepsis Problem Qualifiers (1) Sepsis: Qualified Codes: A41.9 - Sepsis, unspecified organism Tatum Proctor Dec 03, 2016 12:21 Lana Justice MD Dec 03, 2016 17:32
[2016-12-03] MEDS: VASOPRESSIN 40 U/D5W 100 ML Titrate, Post Cardiac Surgery IV PRN ×2 (12:35)
[2016-12-03] MEDS: SODIUM BICARBONATE 8.4% INJ 150 MEQ in SODIUM CHLOR 0.9% 1000 ML INJ 850 ML IV SCH ×2 (12:38→22:13)
[2016-12-03] MEDS ORDERED: VANCOMYCIN INJ 1,400 MG in SODIUM CHLORID 0.9% 500 ML INJ 500 ML IV ONE (14:00)
--- NOTE | 2016-12-03 14:42 | PD.CONS ---
HPI History of Present Illness This is a 71 year old female who came to the emergency room for shortness of breath, fevers, abdominal pain. She is currently intubated on the ventilator and therefore the history has been obtained from the at the bedside. According to her , she has severe chronic back pain and has a high tolerance for pain and does not complain about pain much. She uses medical marijuana via vaping and takes 4 shots of scotch per day to help with her pain control. She did not complain of pain, but has had decreased appetite and nausea for 2-3 weeks. He reports [place], when she woke up Saturday with severe abdominal pain. SHe has no history of PUD. She last had EGD/Colonoscopy over the summer in [place]- [facility] with no polyps per . She also had fevers/chills and some respiratory difficulty and therefore he brought her to the emergency room, where she required emergent intubation and mechanical ventilation. She was then admitted to the ICU with severe sepsis. BCx from grew enterobacter species, klebsiella pneumoniae, escherichia coli, and GNR in the anaerobic bottle. CT scan abdomen and pelvis without iv contrast ()---> No evidence of acute abdominal or pelvic process. No masses are identified. Cholelithiasis. Left lower lobe atelectasis versus pneumonia, a large hiatal hernia is present, diverticulosis without evidence of diverticulitis. Liver US (12/02/16)---> Cholelithiasis with wall thickening and trace pericholecystic fluid, no evidence of biliary duct distention, no other significant abnormality. LFT on admission were T> Bili 4.0, AST 753, ALT 215, ALk PHosph 412. Lipase 187. She was started on Zosyn, Vanco is on her way to to have a cholecystomy tube placed. . (Danica Shipley) PFSH Past Medical History Severe scoliosis Chronic back pain Coronary artery disease HTN Hyperlipidemia Past Surgical History Right knee replacement Anterior cervical diskectomy/fusion EGD/Colonoscopy Tubal ligation (Danica Shipley) Coded Allergies: No Known Allergies (Unverified , 12/02/16) Medications Allergies Coded Allergies Type Severity Reaction Last Updated Verified No Known Allergies 12/02/16 No Active Scripts Medications Dose Route/Sig Max Daily Dose Days Date Category Dose Instructions Acidophilus Probiotic (Lactobacillus) 100 Mg (1 Billion Cell) Cap 2 Tab PO DAILY 12/02/16 Reported Vitamin D-1000 (Cholecalciferol) 1,000 Unit Tab 2,000 Units PO DAILY 12/02/16 Reported Aspirin 81 (Aspirin) 81 Mg Tabdr 81 Mg PO DAILY 12/02/16 Reported Rosuvastatin (Rosuvastatin Calcium) 40 Mg Tab 40 Mg PO DAILY 12/02/16 Reported Patanol Opth 0.1% (Olopatadine HCl) 0.1 % Drops 1 Drop EACH EYE BID PRN 12/02/16 Reported Nitrostat SL (Nitroglycerin) 0.4 Mg Subl 0.4 Mg SL DIRECTED PRN 12/02/16 Reported 1 tablet under the tongue as needed for chest pain. Repeat every 5 minutes for a total of 3 DOSES or call 911 if NO relief. Furosemide 20 Mg Tab 20 Mg PO DAILY 12/02/16 Reported Celecoxib 200 Mg Cap 200 Mg PO HS 12/02/16 Reported Metoprolol Succinate ER 24 HR (Metoprolol Succinate) 50 Mg Tab 50 Mg PO DAILY 12/02/16 Reported Gabapentin 300 Mg Cap 300 Mg PO TID 12/02/16 Reported Ezetimibe 10 Mg Tab 10 Mg PO DAILY 12/02/16 Reported Cephalexin 500 Mg Cap 500 Mg PO DIRECTED 12/02/16 Reported FOR DENTIST VISIT Omeprazole 40 Mg Cap 40 Mg PO DAILY 12/02/16 Reported Family History Paternal aunt had ovarian cancer Paternal aunt had breast cancer Mother from Myasthenia gravis 32 years ago Father had heart disease, 62 from heart attack Paternal GM from stroke Social History Quit smoking for 20 years ago, smoked about 30 years prior to that Medical marijuana Vape form for back pain- has not for 2 weeks Heavy drinker, 4 shots daily. Last drink 2 weeks ago (Danica Shipley) Review of Systems Constitutional: COMPLAINS OF: Fatigue, Fever, Chills, DENIES: Weight gain, Weight loss Respiratory: COMPLAINS OF: Cough, Shortness of breath Cardiovascular: DENIES: Chest pain Gastrointestinal: COMPLAINS OF: Abdominal pain, Diarrhea (chronic), Nausea, Vomiting, Difficulty Swallowing (with pills), Swelling of Abdomen, DENIES: Black stools Musculoskeletal: COMPLAINS OF: Joint pain, Back pain Neurologic: DENIES: Headache Psychiatric: DENIES: Confusion (ShipleyDanica Rosasanjeev SOLIS) GI Exam Vitals I&O Vital Signs Date Time Temp Pulse Resp B/P (MAP) Pulse Ox O2 Delivery O2 Flow Rate FiO2 12/03/16 12:35 106 96/49 12/03/16 11:00 101 91/49 12/03/16 10:03 97 50 12/03/16 09:04 104 109/55 12/03/16 08:43 99.2 90 24 104/62 (76) 100 94/56 (69) 12/03/16 06:00 94 12/03/16 05:51 93 122/63 12/03/16 05:51 93 122/63 12/03/16 04:10 100 50 12/03/16 04:00 87 12/03/16 04:00 50 12/03/16 04:00 98.0 87 24 123/80 (94) 100 149/79 (102) 12/03/16 03:15 88 139/78 12/03/16 02:56 87 142/78 12/03/16 02:00 87 12/03/16 00:22 100 90 12/03/16 00:00 90 12/03/16 00:00 100.1 90 24 126/78 (94) 100 138/75 (96) 12/03/16 00:00 50 12/02/16 23:00 96 129/71 12/02/16 22:45 100 100 12/02/16 22:34 90 12/02/16 22:32 83 92/55 12/02/16 22:00 109 12/02/16 21:32 89 Non-Rebreather 15.00 12/02/16 20:08 100.9 111 24 130/72 (91) 88 12/02/16 20:03 12/02/16 20:00 95 Venturi Mask 50 12/02/16 19:00 88 23 136/72 (93) 94 Venturi Mask 6.00 12/02/16 18:00 90 24 129/66 (87) 94 Venturi Mask 6.00 12/02/16 17:19 94 Venturi Mask 6.00 50 12/02/16 17:15 96 Venturi Mask 6.00 12/02/16 17:00 92 21 128/66 (86) 96 Non-Rebreather 15.00 12/02/16 16:00 100.8 96 24 126/65 (85) 98 Non-Rebreather 15.00 12/02/16 15:00 101.8 98 22 131/66 (87) 98 Non-Rebreather 15.00 12/02/16 14:20 96 Non-Rebreather 15.00 12/02/16 14:19 86 Nasal Cannula 6.00 I/O 12/02/16 12/02/16 12/02/16 12/03/16 12/03/16 12/03/16 07:00 15:00 23:00 07:00 15:00 23:00 Intake Total 2000 ml 1550 ml 1500 ml 247 ml Output Total 375 ml Balance 2000 ml 1550 ml 1125 ml 247 ml Intake IV Total 2000 ml 1550 ml 1500 ml 247 ml Output Urine Total 375 ml Imaging Last Impressions Chest X-Ray 12/02/16 2305 Signed Impressions: Service Date/Time: Friday, December 02, 2016 23:12 - CONCLUSION: 1. Satisfactory position of endotracheal tube as above. 2. Uncomplicated line placement. No evidence of pneumothorax. Royal Messer MD Liver Ultrasound 12/02/16 0000 Signed Impressions: Service Date/Time: Friday, December 02, 2016 19:12 - CONCLUSION: 1. Cholelithiasis with wall thickening and trace pericholecystic fluid. 2. No evidence of biliary duct distention. 3. No other significant abnormality. Jak Hughes MD Abdomen/Pelvis CT 12/02/16 0000 Signed Impressions: Service Date/Time: Friday, December 02, 2016 15:09 - CONCLUSION: 1. No evidence of acute abdominal or pelvic process. No masses are identified. 2. Cholelithiasis 3. Left lower lobe atelectasis versus pneumonia. 4. A large hiatal hernia is present. 5. Diverticulosis without evidence of diverticulitis. Royal Messer MD Laboratory Test 12/02/16 15:20 12/02/16 19:35 12/02/16 20:00 12/02/16 21:36 Lactic Acid Level 1.4 mmol/L Blood Urea Nitrogen 17 MG/DL Creatinine 2.51 MG/DL Random Glucose 132 MG/DL Total Protein 6.4 GM/DL Calcium Level 7.4 MG/DL Sodium Level 144 MEQ/L Potassium Level 2.2 MEQ/L Chloride Level 108 MEQ/L Carbon Dioxide Level 24.4 MEQ/L Anion Gap 12 MEQ/L Estimat Glomerular Filtration Rate 19 ML/MIN Protein Corrected Calcium 7.7 MG/DL Total Bilirubin 4.0 MG/DL Direct Bilirubin 3.2 MG/DL Indirect Bilirubin 0.8 MG/DL Aspartate Amino Transf (AST/SGOT) 753 U/L Alanine Aminotransferase (ALT/SGPT) 215 U/L Alkaline Phosphatase 412 U/L Troponin I 0.11 NG/ML Albumin 2.6 GM/DL Nasal Screen MRSA (PCR) MRSA NOT DETECTED Blood Gas Puncture Site RT RADIAL Blood Gas Patient Temperature 98.6 Blood Gas HCO3 22 mmol/L Blood Gas Base Excess -5.1 mmol/L Blood Gas Oxygen Saturation 90 % Arterial Blood pH 7.17 Arterial Blood Partial Pressure CO2 64 mmHg Arterial Blood Partial Pressure O2 82 mmHg Arterial Blood Oxygen Content 13.8 Vol % Arterial Blood Carboxyhemoglobin 1.4 % Arterial Blood Methemoglobin 1.2 % Blood Gas Hemoglobin 10.8 G/DL Oxygen Delivery Device NRB Blood Gas Liter Flow 15 L/M Test 12/02/16 23:22 12/03/16 00:08 12/03/16 04:17 12/03/16 09:40 Blood Gas Puncture Site NICOLE Blood Gas Patient Temperature 98.6 Blood Gas HCO3 15 mmol/L Blood Gas Base Excess -9.5 mmol/L Blood Gas Oxygen Saturation 97 % Arterial Blood pH 7.32 Arterial Blood Partial Pressure CO2 31 mmHg Arterial Blood Partial Pressure O2 167 mmHg Arterial Blood Oxygen Content 17.3 Vol % Arterial Blood Carboxyhemoglobin 1.4 % Arterial Blood Methemoglobin 1.1 % Blood Gas Hemoglobin 12.5 G/DL Oxygen Delivery Device VENTILATOR Blood Gas Ventilator Setting SEE COMMENT Blood Gas Inspired Oxygen 100 % Magnesium Level 1.3 MG/DL 2.8 MG/DL White Blood Count 7.4 TH/MM3 Red Blood Count 3.59 MIL/MM3 Hemoglobin 11.3 GM/DL Hematocrit 32.5 % Mean Corpuscular Volume 90.6 FL Mean Corpuscular Hemoglobin 31.4 PG Mean Corpuscular Hemoglobin Concent 34.6 % Red Cell Distribution Width 15.0 % Platelet Count 107 TH/MM3 Mean Platelet Volume 9.3 FL Neutrophils (%) (Auto) 88.0 % Lymphocytes (%) (Auto) 9.2 % Monocytes (%) (Auto) 2.3 % Eosinophils (%) (Auto) 0.3 % Basophils (%) (Auto) 0.2 % Neutrophils # (Auto) 6.5 TH/MM3 Lymphocytes # (Auto) 0.7 TH/MM3 Monocytes # (Auto) 0.2 TH/MM3 Eosinophils # (Auto) 0.0 TH/MM3 Basophils # (Auto) 0.0 TH/MM3 CBC Comment DIFF FINAL Differential Comment Blood Urea Nitrogen 19 MG/DL Creatinine 2.61 MG/DL Random Glucose 180 MG/DL Total Protein 5.6 GM/DL Albumin 2.3 GM/DL Calcium Level 6.9 MG/DL Phosphorus Level 0.9 MG/DL Alkaline Phosphatase 349 U/L Aspartate Amino Transf (AST/SGOT) 630 U/L Alanine Aminotransferase (ALT/SGPT) 215 U/L Total Bilirubin 5.5 MG/DL Sodium Level 146 MEQ/L Potassium Level 2.2 MEQ/L Chloride Level 110 MEQ/L Carbon Dioxide Level 18.6 MEQ/L Anion Gap 17 MEQ/L Estimat Glomerular Filtration Rate 18 ML/MIN Protein Corrected Calcium 7.7 MG/DL Troponin I 0.49 NG/ML Triglycerides Level 102 MG/DL Cholesterol Level LESS THAN 50 MG/DL LDL Cholesterol 13 MG/DL HDL Cholesterol 16.6 MG/DL Cholesterol/HDL Ratio 3.01 RATIO Random Vancomycin Level 11.9 COMMENT Urine Eosinophils NONE SEEN /HPF Urine Random Creatinine 67.2 MG/DL Urine Random Sodium 66 MEQ/L Test 12/03/16 11:43 Blood Gas Puncture Site ART LINE Blood Gas Patient Temperature 98.6 Blood Gas HCO3 15 mmol/L Blood Gas Base Excess -10.1 mmol/L Blood Gas Oxygen Saturation 92 % Arterial Blood pH 7.31 Arterial Blood Partial Pressure CO2 30 mmHg Arterial Blood Partial Pressure O2 80 mmHg Arterial Blood Oxygen Content 14.3 Vol % Arterial Blood Carboxyhemoglobin 1.3 % Arterial Blood Methemoglobin 1.4 % Blood Gas Hemoglobin 11.0 G/DL Oxygen Delivery Device VENTILATOR Blood Gas Ventilator Setting PRVC/AC Blood Gas Inspired Oxygen 50 % Date/Time Source Procedure Growth Status 12/02/16 12:40 Blood Peripheral Aerobic Blood Culture - Preliminary Enterobacter Species Klebsiella Pneumoniae Escherichia Coli Resulted 12/02/16 12:40 Anaerobic Blood Culture - Preliminary Gram Negative Primitivo Resulted 12/03/16 10:15 Sputum Endotracheal Gram Stain Pending Received 12/03/16 10:15 Sputum Endotracheal Sputum Culture Pending Received 12/03/16 09:40 Urine Catheterized Urine Streptococcus pneumoniae Antigen (M - Final PRESUMPTIVE NEGATIVE FOR STREPTOCOCCU... Complete Physical Examination HEENT: Normocephalic; atraumatic; no jaundice. CHEST: Resp even/unlabored, OETT to vent. Diminished CARDIAC: Regular, mildly tachycardic ABDOMEN: Soft, distended, diffuse tenderness, with significant RUQ tenderness; bowel sounds are present in all four quadrants. EXTREMITIES: No clubbing, cyanosis, or edema. SKIN: Normal; no rash; no jaundice. LENS MOLD SETTER: Lightly sedated on vent. (Danica Shipley) Assessment and Plan Plan ASSESSMENT: - Cholecystitis. CT scan abdomen and pelvis without iv contrast (12/02/16)---> No evidence of acute abdominal or pelvic process. No masses are identified. Cholelithiasis. Left lower lobe atelectasis versus pneumonia, a large hiatal hernia is present, diverticulosis without evidence of diverticulitis. Liver US (12/02/16)---> Cholelithiasis with wall thickening and trace pericholecystic fluid, no evidence of biliary duct distention, no other significant abnormality. LFT on admission were T. Bili 4.0, AST 753, ALT 215, ALk PHosph 412. Lipase 187. Bacteremia with multiple organisms. Zosyn, Vanco. Going to IR for cholecystomy tube. - Elevated LFTs. T. Bili 5.5, AST 630, ALT 215, ALk Phosph 349. No ebidence of biliary duct obstruction. No evidence of pancreatitis or dilated ducts on imaging. Unclear if this is all cholecystis, or passed stone, or possible ETOH and cholecystitis. Consider MRCP once more stable. - Severe sepsis. BCx from 12/02/16 grew enterobacter species, klebsiella pneumoniae, escherichia coli, and GNR in the anaerobic bottle. Zosyn, Vanco. On multiple vasopressors - Thrombocytopenia. Plt 107 - Anemia. HH 11.3/32.5. - Abdominal pain, nausea, decreased appetite. Likely related to cholecystis. - COCO with severe electrolyte abnormalities. - Resp. Failure, vent per CCM - Chronic back pain r/t scoliosis. Uses medical marijuana via vaping and takes 4 shots of scotch per day to help with her pain control. Last had these 2 weeks ago. - CAD, Hx HTN, Hyperlipidemia per attending. PLAN: - NPO - NGT to [facility] - IR consulted for cholecystomy tube placement - Consider MRCP when more stable - Cont. Abx per ID recommendations - Monitor labs - Liver workup to exclude any other underlying liver dz - Supportive care - Further recommendations to follow based on results of above - Pt seen and examined by Dr. Knight and myself and this note is written on his behalf (Danica Shipley) Physician Comments Patient seen and examined Agree with above Continue with current supportive care Monitor labs (Greg Knight MD) Danica Shipley Dec 03, 2016 14:42 Greg Knight MD Dec 03, 2016 20:30
[2016-12-03 15:01] LABS: INTERNATIONAL NORMALIZED RATIO 1.7 RATIO; PROTHROMBIN TIME - PATIENT 18.7 SEC (9.8-11.6)
--- NOTE | 2016-12-03 15:06 | PD.RAD ---
Post Procedure Progress Note Pre Procedure Diagnosis: (1) Acute cholecystitis (2) Sepsis Post Procedure Diagnosis: (1) Sepsis (2) Acute cholecystitis Procedure Date: Dec 03, 2016 Supervising Radiologist: Nain Sharma JR Proceduralist/Assist: Kash Meadows, RT(R), Susy Milligan RT(R) Anesthesia: Other Plan of Activity Patient to Unit: Critical Care Patient Condition: Fair See PACS Report for procedural detail/treatment Drainage Procedure Procedure 1 Imaging Guidance: Fluoroscopy, Ultrasound Procedure Type: Cholecystostomy Procedure: Placement Croatian: 6 Fluid Description: Bilious Findings: Aleah tube placed. Dark, inspissated bile noted. Sample to micro. Tube sutured in place Jr. Zachary,Nain Valderrama MD Dec 03, 2016 15:06
[2016-12-03 15:32] LABS: BICARBONATE 17.9 MEQ/L (21.0-32.0); CALCIUM 6.9 MG/DL (8.5-10.1); CREATININE 3.07 MG/DL (0.50-1.00)
[2016-12-03 15:48] LABS: CALCIUM-PROTEIN CORRECTED 7.8 MG/DL (8.5-10.1)
[2016-12-03 15:53] LABS: TOTAL PROTEIN 5.4 GM/DL (6.4-8.2)
[2016-12-03] MEDS ORDERED: IOHEXOL 350 MG/ML 50 ML BTL (for RAD DIAG) OTHER ONE (15:53)
[2016-12-03 16:37] LABS: % SATURATION IRON PROFILE 2.7 % (20-50); IRON (FE) 6 MCG/DL (50-170); TOTAL IRON BINDING CAPACITY 221 MCG/DL (250-450)
[2016-12-03 16:40] LABS: FERRITIN 306 NG/ML (8-252)
--- NOTE | 2016-12-03 16:46 | RADRPT ---
EXAM DATE/TIME: 12/03/2016 14:31 [facility] COMPARISON: No previous studies available for comparison. INDICATIONS : Patient presents acute cholecystitis and not a surgical candidate. MEDICAL HISTORY : Hiatal hernia Diverticulits Cholelithiasis Transaminitis Nausea Hyperlipidemia Hypertension DC History of systolic CHF Coronay artery disease Respiratory insufficiency Hypokalemia Hypomagnesemia Pancytopenia SURGICAL HISTORY : Angioplasty x 2 Right total knee replacement Anterior cervical discectomy and fusion ENCOUNTER: Initial ACUITY: 2 days PAIN SCORE: 0/10 LOCATION: Unresponsive FLUORO TIME: 0.6 minutes IMAGE SERIES: 0 CONTRAST: 5 cc Omnipaque (iohexol) 350 DEVICE(S): 1.) 6 Micronesian [place] [employer] All purpose drain PROCEDURE : 1. Ultrasound guided puncture of the gallbladder. 2. Percutaneous cholangiogram. 3. Percutaneous cholecystostomy tube placement. 4. Conscious sedation with continuous EKG and oximetry monitoring. The risks, benefits and alternatives to the procedure were explained and verbal and written consent w as obtained. The site was prepped in sterile fashion. Full sterile technique was used, including ca p, mask, sterile gloves and gown and a large sterile sheet. Hand hygiene and 2% chlorhexidine and/or betadine/alcohol prep was utilized per protocol for cutaneous antisepsis. Sterile gel and sterile p robe cover were utilized for ultrasound guidance. The skin and subcutaneous tissues were infiltrated with local anesthetic solution. With ultrasound and fluoroscopic guidance the gallbladder was punctured with a micropuncture set and a 4 Micronesian dilator was placed. Injection of positive contrast demonstrates position within the gallb ladder. A 0.035 guidewire was placed within the gallbladder lumen and dilatation was performed to ac cept the prescribed catheter. <Aspiration yielded thick inspissated bile. Sample sent for microbiological evaluation. Tube sutured in place.> Conscious sedation was performed with the prescribed dosages and duration as above in the presence of an independent trained radiology nurse to assist in the monitoring of the patient. EKG and oximetry remained stable throughout the procedure. The patient tolerated the procedure well and there were n o complications. The patient was sent to post anesthesia recovery in stable condition. CONCLUSION: Uncomplicated percutaneous cholecystostomy as above. Nain Sharma Jr., MD on December 03, 2016 at 16:23 Board Certified Radiologist. This report was verified electronically.
--- NOTE | 2016-12-03 17:02 | PD.CONS ---
cc: Roly Portillo MD HPI Service General Surgery Consult Requested By Dr. Mendieta Reason for Consult Evaluation of acute cholecystitis Primary Care Physician No Primary Care Physician History of Present Illness This is a 71 year old female with a past medical history of CT, scoliosis and hypertension. The patient comes to the ED with complaints of fever, nausea, vomiting and abdominal pain. Per the the patient has been short of breath for about two weeks now but increased over the last two days. The patient was orally intubated due to respiratory distress and a central line was placed. The patient has been started on pressor support. A CT abd/pelvis was obtained which shows gallstones. Due to the patient's condition, a plan was made for a cholecystostomy tube to be placed by IR. A General Surgery consultation has been requested. Review of Systems ROS Limitations: Clinical Condition, Intubated Past Family Social History Past Medical History CT Hypertension Scoliosis Past Surgical History RIGHT total knee replacement ACDF Allergies: Coded Allergies: No Known Allergies (Unverified , 12/02/16) Active Ordered Medications Current Medications Medications (Trade) Dose Ordered Sig/Dhruv Route Start Time Stop Time Status Last Admin (NS Flush) 2 ml UNSCH PRN IV FLUSH 12/02/16 16:15 (NS Flush) 2 ml BID IV FLUSH 12/02/16 21:00 12/03/16 08:30 (Tylenol) 650 mg Q6H PRN PO 12/02/16 16:15 (Pepcid Inj) 20 mg DAILY IV PUSH 12/02/16 21:00 12/03/16 08:29 (Heparin Inj) 5,000 units Q12H SQ 12/02/16 17:00 12/03/16 05:40 Miscellaneous Information 1 Q361D XX 12/02/16 16:15 12/02/16 16:15 (Chlorhexidine 2% Cloth) 3 pack Taper DAILY@04 TOP 12/03/16 04:00 11/29/17 03:59 12/02/16 21:00 (Chlorhexidine 2% Cloth) 3 pack UNSCH PRN TOP 12/02/16 16:15 (Keely-Colace) 1 tab BID PO 12/02/16 21:00 (Milk Of Magnesia Liq) 30 ml Q12H PRN PO 12/02/16 16:15 (Senokot) 17.2 mg Q12H PRN PO 12/02/16 16:15 (Dulcolax Supp) 10 mg DAILY PRN RECTAL 12/02/16 16:15 (Lactulose Liq) 30 ml DAILY PRN PO 12/02/16 16:15 (D50w (Vial) Inj) 50 ml UNSCH PRN IV PUSH 12/02/16 16:45 (Glucagon Inj) 1 mg UNSCH PRN OTHER 12/02/16 16:45 (NovoLIN R SUPPLEMENTAL SCALE) 1 ACHS SLIDING SCALE SQ 12/02/16 17:00 (Ativan Inj) 1 mg Q4H PRN IV PUSH 12/02/16 16:45 12/02/16 20:23 Pharmacy Profile Note 0 ml @ 0 mls/hr UNSCH OTHER 12/02/16 17:00 Piperacillin Sod/ Tazobactam Sod 50 ml @ 200 mls/hr Q6H IV 12/02/16 22:00 12/03/16 11:27 (Morphine Inj) 2 mg Q4H PRN IV PUSH 12/02/16 17:45 12/02/16 20:24 (Peridex 0.12% Liq) 15 ml BID@08,20 MT 12/03/16 08:00 12/03/16 09:08 Propofol 100 ml @ 2.34 mls/hr TITRATE PRN IV 12/02/16 22:15 12/02/16 22:31 Fentanyl Citrate 250 ml @ 5 mls/hr TITRATE PRN IV 12/02/16 22:15 12/03/16 11:44 Norepinephrine Bitartrate 4 mg/ Sodium Chloride 250 ml @ 7.5 mls/hr TITRATE PRN IV 12/02/16 22:15 12/03/16 16:52 (Brethine Inj) 1 mg UNSCH PRN SQ 12/02/16 22:15 Vasopressin 40 units/Dextrose 100 ml @ 1.5 mls/hr TITRATE PRN IV 12/02/16 22:45 12/03/16 12:35 (NS Flush) DAILY IV FLUSH 12/03/16 09:00 12/03/16 09:08 (NS Flush) UNSCH PRN IV FLUSH 12/02/16 23:15 Sodium Bicarbonate 150 meq/Sodium Chloride 1,000 ml @ 50 mls/hr Q20H IV 12/03/16 09:00 12/03/16 12:38 (SoluCORTEF INJ) 100 mg Q8H IV PUSH 12/03/16 09:00 12/03/16 08:32 (Tears Naturale Opth Soln) 1 drop Q8HR PRN EACH EYE 12/03/16 08:15 (Duoneb Neb) 1 ampule Q6HR NEB NEB 12/03/16 10:00 12/03/16 16:15 (Duoneb Neb) 1 ampule Q2HR NEB PRN NEB 12/03/16 09:00 Social History Obtained from at bedside Denies current tobacco use + ETOH----up until 2 weeks ago was having 4 shots of Scotch daily for many years Uses medical marijuana for scoliosis pain Physical Exam Vital Signs Vital Signs Date Time Temp Pulse Resp B/P (MAP) Pulse Ox O2 Delivery O2 Flow Rate FiO2 12/03/16 16:52 97 97/55 12/03/16 16:16 94 50 12/03/16 14:05 100 100 12/03/16 12:35 106 96/49 12/03/16 11:00 101 91/49 12/03/16 10:03 97 50 12/03/16 09:04 104 109/55 12/03/16 08:43 99.2 90 24 104/62 (76) 100 94/56 (69) 12/03/16 06:00 94 12/03/16 05:51 93 122/63 12/03/16 05:51 93 122/63 12/03/16 04:10 100 50 12/03/16 04:00 87 12/03/16 04:00 50 12/03/16 04:00 98.0 87 24 123/80 (94) 100 149/79 (102) 12/03/16 03:15 88 139/78 12/03/16 02:56 87 142/78 12/03/16 02:00 87 12/03/16 00:22 100 90 12/03/16 00:00 90 12/03/16 00:00 100.1 90 24 126/78 (94) 100 138/75 (96) 12/03/16 00:00 50 12/02/16 23:00 96 129/71 12/02/16 22:45 100 100 12/02/16 22:34 90 12/02/16 22:32 83 92/55 12/02/16 22:00 109 12/02/16 21:32 89 Non-Rebreather 15.00 12/02/16 20:08 100.9 111 24 130/72 (91) 88 12/02/16 20:03 12/02/16 20:00 95 Venturi Mask 50 12/02/16 19:00 88 23 136/72 (93) 94 Venturi Mask 6.00 12/02/16 18:00 90 24 129/66 (87) 94 Venturi Mask 6.00 12/02/16 17:19 94 Venturi Mask 6.00 50 12/02/16 17:15 96 Venturi Mask 6.00 12/02/16 17:00 92 21 128/66 (86) 96 Non-Rebreather 15.00 Physical Exam GENERAL: Critically ill female resting in bed; sedated. SKIN: Warm and dry. HEAD: Atraumatic. Normocephalic. EYES: Pupils equal and round. No scleral icterus. No injection or drainage. ENT: No nasal bleeding or discharge. Mucous membranes pink and moist. NECK: Trachea midline. CARDIOVASCULAR: Regular rate and rhythm. RESPIRATORY: No accessory muscle use. Clear to auscultation. Breath sounds equal bilaterally. GASTROINTESTINAL: Abdomen soft, nondistended; grimaces with palpation in RUQ. Cholecystostomy tube in place draining dark bile. MUSCULOSKELETAL: Extremities without clubbing, cyanosis, or edema. No obvious deformities. NEUROLOGICAL:Intubated/Sedated. PSYCHIATRIC: Unable to examine. Laboratory Laboratory Tests Test 12/02/16 19:35 12/02/16 20:00 12/02/16 21:36 12/02/16 23:22 Blood Urea Nitrogen 17 Creatinine 2.51 Random Glucose 132 Total Protein 6.4 Calcium Level 7.4 Sodium Level 144 Potassium Level 2.2 Chloride Level 108 Carbon Dioxide Level 24.4 Anion Gap 12 Estimat Glomerular Filtration Rate 19 Protein Corrected Calcium 7.7 Total Bilirubin 4.0 Direct Bilirubin 3.2 Indirect Bilirubin 0.8 Aspartate Amino Transf (AST/SGOT) 753 Alanine Aminotransferase (ALT/SGPT) 215 Alkaline Phosphatase 412 Troponin I 0.11 Albumin 2.6 Nasal Screen MRSA (PCR) MRSA NOT DETECTED Blood Gas Puncture Site RT RADIAL NICOLE Blood Gas Patient Temperature 98.6 98.6 Blood Gas HCO3 22 15 Blood Gas Base Excess -5.1 -9.5 Blood Gas Oxygen Saturation 90 97 Arterial Blood pH 7.17 7.32 Arterial Blood Partial Pressure CO2 64 31 Arterial Blood Partial Pressure O2 82 167 Arterial Blood Oxygen Content 13.8 17.3 Arterial Blood Carboxyhemoglobin 1.4 1.4 Arterial Blood Methemoglobin 1.2 1.1 Blood Gas Hemoglobin 10.8 12.5 Oxygen Delivery Device NRB VENTILATOR Blood Gas Liter Flow 15 Blood Gas Ventilator Setting SEE COMMENT Blood Gas Inspired Oxygen 100 Test 12/03/16 00:08 12/03/16 04:17 12/03/16 09:40 12/03/16 11:43 Magnesium Level 1.3 2.8 White Blood Count 7.4 Red Blood Count 3.59 Hemoglobin 11.3 Hematocrit 32.5 Mean Corpuscular Volume 90.6 Mean Corpuscular Hemoglobin 31.4 Mean Corpuscular Hemoglobin Concent 34.6 Red Cell Distribution Width 15.0 Platelet Count 107 Mean Platelet Volume 9.3 Neutrophils (%) (Auto) 88.0 Lymphocytes (%) (Auto) 9.2 Monocytes (%) (Auto) 2.3 Eosinophils (%) (Auto) 0.3 Basophils (%) (Auto) 0.2 Neutrophils # (Auto) 6.5 Lymphocytes # (Auto) 0.7 Monocytes # (Auto) 0.2 Eosinophils # (Auto) 0.0 Basophils # (Auto) 0.0 CBC Comment DIFF FINAL Differential Comment Blood Urea Nitrogen 19 Creatinine 2.61 Random Glucose 180 Total Protein 5.6 Albumin 2.3 Calcium Level 6.9 Phosphorus Level 0.9 Alkaline Phosphatase 349 Aspartate Amino Transf (AST/SGOT) 630 Alanine Aminotransferase (ALT/SGPT) 215 Total Bilirubin 5.5 Sodium Level 146 Potassium Level 2.2 Chloride Level 110 Carbon Dioxide Level 18.6 Anion Gap 17 Estimat Glomerular Filtration Rate 18 Protein Corrected Calcium 7.7 Troponin I 0.49 Triglycerides Level 102 Cholesterol Level LESS THAN 50 LDL Cholesterol 13 HDL Cholesterol 16.6 Cholesterol/HDL Ratio 3.01 Random Vancomycin Level 11.9 Urine Eosinophils NONE SEEN Urine Random Creatinine 67.2 Urine Random Sodium 66 Blood Gas Puncture Site ART LINE Blood Gas Patient Temperature 98.6 Blood Gas HCO3 15 Blood Gas Base Excess -10.1 Blood Gas Oxygen Saturation 92 Arterial Blood pH 7.31 Arterial Blood Partial Pressure CO2 30 Arterial Blood Partial Pressure O2 80 Arterial Blood Oxygen Content 14.3 Arterial Blood Carboxyhemoglobin 1.3 Arterial Blood Methemoglobin 1.4 Blood Gas Hemoglobin 11.0 Oxygen Delivery Device VENTILATOR Blood Gas Ventilator Setting PRVC/AC Blood Gas Inspired Oxygen 50 Test 12/03/16 13:33 Prothrombin Time 18.7 Prothromb Time International Ratio 1.7 Activated Partial Thromboplast Time 42.2 Fibrinogen 374 Blood Urea Nitrogen 24 Creatinine 3.07 Random Glucose 120 Total Protein 5.4 Calcium Level 6.9 Sodium Level 146 Potassium Level 2.7 Chloride Level 112 Carbon Dioxide Level 17.9 Anion Gap 16 Estimat Glomerular Filtration Rate 15 Protein Corrected Calcium 7.8 Iron Level 6 Total Iron Binding Capacity 221 Percent Iron Saturation 2.7 Ferritin 306 Date/Time Source Procedure Growth Status 12/02/16 12:40 Blood Peripheral Aerobic Blood Culture - Preliminary Enterobacter Species Klebsiella Pneumoniae Escherichia Coli Resulted 12/02/16 12:40 Anaerobic Blood Culture - Preliminary Gram Negative Primitivo Resulted 12/03/16 14:55 Fluid Bile Fluid Gram Stain Pending Received 12/03/16 14:55 Fluid Bile Fluid Body Fluid Culture Pending Received 12/03/16 10:15 Sputum Endotracheal Gram Stain Pending Received 12/03/16 10:15 Sputum Endotracheal Sputum Culture Pending Received 12/03/16 09:40 Urine Catheterized Urine Streptococcus pneumoniae Antigen (M - Final PRESUMPTIVE NEGATIVE FOR STREPTOCOCCU... Complete Result Diagram: 12/03/16 0417 12/03/16 1333 Imaging Last 48 hours Impressions Percutaneous Cholangiogram 12/03/16 0000 Signed Impressions: Service Date/Time: Saturday, December 03, 2016 14:31 - CONCLUSION: Uncomplicated percutaneous cholecystostomy as above. Nain Sharma Jr., MD Chest X-Ray 12/02/16 2306 Signed Impressions: Service Date/Time: Friday, December 02, 2016 23:12 - CONCLUSION: 1. Satisfactory position of endotracheal tube as above. 2. Uncomplicated line placement. No evidence of pneumothorax. Royal Messer MD Chest X-Ray 12/02/16 1217 Signed Impressions: Service Date/Time: Friday, December 02, 2016 12:56 - CONCLUSION: Cardiomegaly. Left lower lobe atelectasis versus pneumonia. Royal Messer MD Liver Ultrasound 12/02/16 0000 Signed Impressions: Service Date/Time: Friday, December 02, 2016 19:12 - CONCLUSION: 1. Cholelithiasis with wall thickening and trace pericholecystic fluid. 2. No evidence of biliary duct distention. 3. No other significant abnormality. Jak Hughes MD Abdomen/Pelvis CT 12/02/16 0000 Signed Impressions: Service Date/Time: Friday, December 02, 2016 15:09 - CONCLUSION: 1. No evidence of acute abdominal or pelvic process. No masses are identified. 2. Cholelithiasis 3. Left lower lobe atelectasis versus pneumonia. 4. A large hiatal hernia is present. 5. Diverticulosis without evidence of diverticulitis. Royal Messer MD Assessment and Plan Assessment and Plan 71 year old female with cholelithiasis; cholecystitis; VDRF -IR placed cholecystostomy tube today -Continue antibiotics -Vent per CCM -IVF -Patient lives in [place] and plans to follow up with a Surgeon closer to their home for laparoscopic cholecystectomy -Thank you for this consult; We will follow along with you. Discussed Condition With Dr. Portillo Heath Mark Attending Statement The exam, history, and the medical decision-making described in the above note were completed with the assistance of the mid-level provider. I reviewed and agree with the findings presented. I attest that I had a [id number] encounter with the patient on the same day, and personally performed and documented my assessment and findings in the medical record. Physical Exam: Abdomen soft, no rebound tenderness or guarding, mildly distended likely cholecystitis, agree with samantha tube placement doubt ischemic bowel, possibly low-flow state due to sepsis, continue resuscitation and supportive care, will follow Yumiko Bee Dec 03, 2016 17:02 Roly Portillo MD Dec 07, 2016 16:59
[2016-12-03] MEDS ORDERED: TERBUTALINE INJ 1 MG/ML AMP SQ PRN (17:15)
[2016-12-03] MEDS: PHENYLEPHRINE INJ 80 MG in DEXTROSE 5% IN WATE 500 ML INJ 492 ML IV PRN ×2 (17:53)
[2016-12-03] MEDS: DOCUSATE SODIUM 50 MG/SENNA 8.6 MG TAB PO SCH ×2 (18:04→22:13)
[2016-12-03] MEDS ORDERED: metroNIDAZOLE 500 MG INJ 100 ML IV SCH (18:45)
[2016-12-03] MEDS ORDERED: metroNIDAZOLE 500 MG INJ 100 ML IV ONE (18:45)
[2016-12-03] MEDS ORDERED: MICAFUNGIN INJ 100 MG in SODIUM CHLORIDE 0.9% INJ 100 ML IV SCH (18:45)
[2016-12-03] MEDS ORDERED: MICAFUNGIN INJ 100 MG in SODIUM CHLORIDE 0.9% INJ 100 ML IV ONE (18:45)
[2016-12-03] MEDS ORDERED: POTASSIUM CHLORIDE 20 MEQ CONTROLLED RELEASE TAB PO SCH (22:15)
[2016-12-03] MEDS ORDERED: POTASSIUM CHLORIDE 20 MEQ PWD PACKET PO ONE (22:30)
--- NOTE | 2016-12-03 23:04 | EKG ---
Date Performed: 12/02/2016 Time Performed: 12:51:25 PTAGE: 71 years EKG: SINUS TACHYCARDIA WITH OCCASIONAL VENTRICULAR PREMATURE COMPLEXES WITH OCCASIONAL SUPRAVENT RICULAR PREMATURE COMPLEXES BORDERLINE LEFT AXIS DEVIATION NONSPECIFIC ST & T-WAVE ABNORMALITY ABNORM AL RHYTHM ECG NO PREVIOUS TRACING DOCTOR: Alfredo Nathan Interpretating Date/Time 12/03/2016 23:02:45
[2016-12-04] VITALS (19 sets, daily range): BP systolic 73–107; BP diastolic 48–60; PULSE 72–96; RESP 24; TEMP 97.7–99.7; O2SAT 0–100
[2016-12-04] MEDS: POTASSIUM CHLOR 20 MEQ PREMIX 100 ML IV SCH (00:58)
[2016-12-04] MEDS: HYDROCORTISONE SOD SUCCINATE 100 MG VIAL IV PUSH SCH ×3 (01:44→17:16)
[2016-12-04] MEDS: metroNIDAZOLE 500 MG INJ 100 ML IV SCH ×3 (01:44→17:17)
[2016-12-04] MEDS: fentaNYL DRIP 250 ML IV PRN ×2 (01:46→17:18)
[2016-12-04] MEDS: RESP: ALBUTEROL 2.5 MG/IPRATROPIUM 0.5 MG NEB (SCH) NEB ×4 (03:20→20:40)
[2016-12-04] MEDS: CHLORHEXIDINE GLUCONATE 2 % 1 PACK (2 CLOTHS) TOP SCH (04:00)
[2016-12-04] MEDS ORDERED: DIATRIZOATE MEGLUM/DIATRIZOATE SOD 9 ML CUP PO ONE (04:15)
[2016-12-04] MEDS: PIPERACIL-TAZO 3.375 GM PREMIX 50 ML IV SCH ×4 (04:26→22:41)
[2016-12-04] MEDS: SODIUM BICARBONATE 8.4% INJ 150 MEQ in SODIUM CHLOR 0.9% 1000 ML INJ 850 ML IV SCH (04:27)
[2016-12-04] MEDS: HEPARIN SODIUM - SQ 10,000 UNITS/ML VIAL SQ SCH (04:28)
[2016-12-04] MEDS: PHENYLEPHRINE INJ 80 MG in DEXTROSE 5% IN WATE 500 ML INJ 492 ML IV PRN ×2 (04:29)
[2016-12-04] MEDS: VASOPRESSIN 40 U/D5W 100 ML Titrate, Post Cardiac Surgery IV PRN ×2 (04:30)
[2016-12-04 05:00] LABS: AUTOMATED NEUTROPHIL # 10.3 TH/MM3 (1.8-7.7); BASOPHIL % 0.2 % (0.0-2.0); EOSINOPHIL # 2.6 TH/MM3 (0-0.4); EOSINOPHIL % 17.6 % (0.0-4.0); HEMATOCRIT 31.2 % (35.0-46.0); HEMOGLOBIN 10.6 GM/DL (11.6-15.3); LYMPH % 9.3 % (9.0-44.0); LYMPHOCYTE # 1.4 TH/MM3 (1.0-4.8); MEAN CELL VOLUME 90.2 FL (80.0-100.0); MEAN CORPUSCULAR HEMOGLOBIN 30.7 PG (27.0-34.0); MEAN PLATELET VOLUME 10.7 FL (7.0-11.0); MONOCYTE # 0.6 TH/MM3 (0-0.9); NEUT % 68.9 % (16.0-70.0); PLATELET COUNT 51 TH/MM3 (150-450); RED BLOOD COUNT 3.46 MIL/MM3 (4.00-5.30); RED CELL DISTRIBUTION WIDTH 15.5 % (11.6-17.2); WHITE BLOOD COUNT 14.9 TH/MM3 (4.0-11.0)
[2016-12-04 05:05] LABS: INTERNATIONAL NORMALIZED RATIO 1.8 RATIO; PROTHROMBIN TIME - PATIENT 20.4 SEC (9.8-11.6)
[2016-12-04 05:43] LABS: BICARBONATE 17.4 MEQ/L (21.0-32.0); CALCIUM 6.3 MG/DL (8.5-10.1); CREATININE 3.41 MG/DL (0.50-1.00); MAGNESIUM 1.9 MG/DL (1.5-2.5); PHOSPHORUS 1.8 MG/DL (2.5-4.9); RANDOM VANCOMYCIN 32.5 COMMENT; TOTAL BILIRUBIN ADULT 4.8 MG/DL (0.2-1.0)
--- NOTE | 2016-12-04 05:56 | RADRPT ---
EXAM DATE/TIME: 12/04/2016 04:25 [facility] COMPARISON: CHEST SINGLE AP, December 02, 2016, 23:12. INDICATIONS : Short of breath. MEDICAL HISTORY : Hypertension. Hypercholesterolemia. Myocardial infarction. SURGICAL HISTORY : None. ENCOUNTER: Subsequent ACUITY: 3 days PAIN SCORE: 0/10 LOCATION: Bilateral chest FINDINGS: The cardiac silhouette is enlarged in transverse diameter. Support lines and tubes are in satisfactor y position. There is bilateral lower lobe atelectasis versus pneumonia left greater than right. A sm all left sided effusion is present. CONCLUSION: 1. The cardiac silhouette is enlarged in transverse diameter. 2. Bilateral lower lobe atelectasis versus pneumonia. There has been no significant change when janny red to the prior exam. Royal Messer MD on December 04, 2016 at 5:54 Board Certified Radiologist. This report was verified electronically.
[2016-12-04 06:02] LABS: CALCIUM-PROTEIN CORRECTED 7.3 MG/DL (8.5-10.1)
[2016-12-04 07:58] LABS: BANDS 8 % (0-6); BURR CELLS 2+ (NORMAL); LYMPHOCYTES 33 % (9-44); MONOCYTES 6 % (0-8); NEUTROPHIL # MANUAL DIFF 9.1 TH/MM3 (1.8-7.7); POLYS (SEG NEUTROPHILS) 53 % (16-70); TOXIC VACUOLATION PRESENT (NONE SEEN)
[2016-12-04 07:59] LABS: DOHLE BODIES PRESENT (NONE SEEN)
[2016-12-04] MEDS ORDERED: CALCIUM GLUCONATE INJ 2 GM in SODIUM CHLORIDE 0.9% INJ 100 ML IV ONE (08:00)
[2016-12-04] MEDS: CHLORHEXIDINE 0.12% (ORAL KIT) 15 ML CUP MT SCH ×2 (08:00→20:22)
[2016-12-04] MEDS: INSULIN NovoLIN REGULAR SUPPLEMENTAL SCALE SQ SCH ×4 (08:00→20:24)
[2016-12-04] MEDS ORDERED: SODIUM PHOSPHATE INJ 15 MMOL in SODIUM CHLORIDE 0.9% INJ 150 ML IV ONE (08:30)
[2016-12-04] MEDS: FAMOTIDINE 20 MG/2 ML VIAL IV PUSH SCH (08:41)
[2016-12-04] MEDS: SODIUM CHLORIDE 0.9% FLUSH 10 ML FLUSH IV FLUSH SCH ×3 (08:42→20:23)
[2016-12-04] MEDS: MULTIVITAMIN INJ 10 ML, FOLIC ACID INJ 1 MG in SODIUM CHLORID 0.9% 500 ML INJ 500 ML IV SCH ×2 (08:43→10:56)
[2016-12-04] MEDS ORDERED: MIDAZOLAM HCL 5 MG/ML VIAL (1 ML) ONE (09:19)
--- NOTE | 2016-12-04 10:09 | RADRPT ---
EXAM DATE/TIME: 12/04/2016 09:35 [facility] COMPARISON: CT ABDOMEN & PELVIS W/O CONTRAST, December 02, 2016, 15:09. INDICATIONS : Nausea, vomiting and abdominal pain. ORAL CONTRAST: Prescribed oral contrast ingested. RADIATION DOSE: 9.69 CTDIvol (mGy) MEDICAL HISTORY : Cardiovascular disease. Hypertension. SURGICAL HISTORY : Cholecystostomy ENCOUNTER: Subsequent ACUITY: 2 days PAIN SCALE: Non-responsive LOCATION: Bilateral abdomen TECHNIQUE: Volumetric scanning of the abdomen and pelvis was performed. Using automated exposure control and ad justment of the mA and/or kV according to patient size, radiation dose was kept as low as reasonably achievable to obtain optimal diagnostic quality images. DICOM format image data is available electro nically for review and comparison. FINDINGS: LOWER LUNGS: Bibasilar consolidation. This is similar to the prior study. A small hiatal hernia. Top normal heart size. LIVER: Homogeneous density without lesion. There is no dilation of the biliary tree. There has been interva l placement of a cholecystostomy tube. This is in good position. Contrast is seen opacifying the lume n of the gallbladder. Filling defects are seen consistent with stones. SPLEEN: Normal size without lesion. PANCREAS: Within normal limits. KIDNEYS: Normal in size and shape. There is no mass, stone, or hydronephrosis. ADRENAL GLANDS: Within normal limits. VASCULAR: Diffuse calcified atherosclerotic plaque. No aneurysmal change observed. BOWEL/MESENTERY: The tip of the NG tube is within the hiatal hernia. Stomach is opacified with oral contrast. It is no rmal in caliber. Small bowel and large bowel are normal in caliber. No inflammation seen. Scattered d iverticula throughout the colon. Small amount of ascitic fluid. No free air. ABDOMINAL WALL: Mild stranding of the intra-abdominal wall just to left of midline and just inferior to the umbilicus . No hematoma or fluid collection. No hernia observed. RETROPERITONEUM: There is no lymphadenopathy. BLADDER: There is a Peterson balloon present in the urinary bladder totally decompressed. REPRODUCTIVE: Within normal limits. INGUINAL: There is no lymphadenopathy or hernia. A left groin catheter noted. MUSCULOSKELETAL: A scoliotic and degenerative spine. CONCLUSION: 1. Interval placement of a cholecystostomy tube. 2. Bibasilar consolidation likely related to atelectasis. This is unchanged. 3. Tip of the NG tube in the hiatal hernia. 4. Small volume ascites. 5. No acute abnormality observed. Nain Sharma Jr., MD on December 04, 2016 at 9:59 Board Certified Radiologist. This report was verified electronically.
--- NOTE | 2016-12-04 10:50 | HHI.CCPN ---
Subjective Remarks/Hospital Course This is a 71-year-old female presents to the ED via EMS for evaluation of fever , shortness breath, vomiting, diarrhea, abdominal pain She reports that she's been short of breath for the past 2 weeks, but has progressed in the past 2 days. Patient has been seeing a state wildlife officer for her shortness of breath, is not on home oxygen. The patient reported she has a history of smoking. She is also complaining of abdominal pain that started 2 days ago with vomiting and diarrhea. Patient has severe tenderness to mild palpation. She has history of MO. She received 500 mL normal saline IV bolus, and Zofran 4 mg IV. Critical care medicine was consulted. Subjective: 12/03: Tmax 100.9. Last evening the patient was noted to have significant respiratory decompensation with requirement for emergent intubation. The patient subsequently became hemodynamically unstable requiring vasopressor support. Patient is lightly sedated, and continues to have abdominal pain, and hypoactive bowel sounds, GI has been consulted. HIDA scan previously scheduled for this morning, after discussion with Dr Goodrich , plan for cholecystostomy tube placement by IR. Ultrasound liver showed no biliary duct distention but notable thickened gallbladder wall. 12/04: Tmax 100.4. Patient continues with severe metabolic acidosis, sodium bicarbonate infusion increased to 150 cc/hour yesterday afternoon. Antibiotics were expanded yesterday with addition of Micafungin and Diflucan. Blood cultures resulted with Enterobacter, Klebsiella pneumoniae and Escherichia coli. ID consulted recommendations appreciated. Patient is status post placement of percutaneous cholecystostomy tube . Patient now icteric, but LFTs are trending down. Records obtained from primary care physician with cardiology reports from earlier in the year, patient with noted pulmonary hypertension and NYHA class III. In-hospital echo pending. Patient continues on 3 pressors to maintain blood pressure. Objective Vital Signs Date Time Temp Pulse Resp B/P (MAP) Pulse Ox O2 Delivery O2 Flow Rate FiO2 12/04/16 07:49 100 50 12/04/16 07:00 85 101/52 12/04/16 04:00 99.1 24 12/03/16 21:09 Ventilator 12/02/16 21:32 15.00 Intake and Output 12/04/16 12/04/16 12/05/16 08:00 16:00 00:00 Intake Total 1710 ml Output Total 290 ml Balance 1420 ml Result Diagram: 12/04/16 0415 12/04/16 0415 Other Results Microbiology Date/Time Source Procedure Growth Status 12/03/16 10:15 Nasal Washing Influenza Types A,B Antigen (MURIEL) - Final NEGATIVE FOR FLU A AND B ANTIGEN.... Complete 12/03/16 09:40 Urine Catheterized Urine Streptococcus pneumoniae Antigen (M - Final PRESUMPTIVE NEGATIVE FOR STREPTOCOCCU... Complete 12/03/16 09:40 Urine Catheterized Urine Legionella Antigen - Final PRESUMPTIVE NEGATIVE FOR LEGIONELLA P... Complete 12/02/16 12:40 Urine Catheterized Urine Urine Culture - Final Escherichia Coli Complete Laboratory Tests Test 12/03/16 11:43 12/03/16 17:35 12/04/16 05:06 Blood Gas Puncture Site ART LINE ART LINE ART LINE Blood Gas Patient Temperature 98.6 98.6 98.6 Blood Gas HCO3 15 mmol/L (22-26) 14 mmol/L (22-26) 15 mmol/L (22-26) Blood Gas Base Excess -10.1 mmol/L (-2-2) -10.4 mmol/L (-2-2) -9.4 mmol/L (-2-2) Blood Gas Oxygen Saturation 92 % (90-100) 94 % (90-100) 96 % (90-100) Arterial Blood pH 7.31 (7.380-7.420) 7.34 (7.380-7.420) 7.35 (7.380-7.420) Arterial Blood Partial Pressure CO2 30 mmHg (38-42) 27 mmHg (38-42) 29 mmHg (38-42) Arterial Blood Partial Pressure O2 80 mmHg (61-120) 87 mmHg (61-120) 129 mmHg (61-120) Arterial Blood Oxygen Content 14.3 Vol % (12.0-20.0) 13.6 Vol % (12.0-20.0) 14.7 Vol % (12.0-20.0) Arterial Blood Carboxyhemoglobin 1.3 % (0-4) 1.4 % (0-4) 1.2 % (0-4) Arterial Blood Methemoglobin 1.4 % (0-2) 1.0 % (0-2) 1.1 % (0-2) Blood Gas Hemoglobin 11.0 G/DL (12.0-16.0) 10.1 G/DL (12.0-16.0) 10.7 G/DL (12.0-16.0) Oxygen Delivery Device VENTILATOR VENTILATOR VENTILATOR Blood Gas Ventilator Setting PRVC/AC PRVC/AC PRVC/AC Blood Gas Inspired Oxygen 50 % 50 % 50 % Imaging Last 24 hours Impressions Chest X-Ray 12/02/16 2305 Signed Impressions: Service Date/Time: Friday, December 02, 2016 23:12 - CONCLUSION: 1. Satisfactory position of endotracheal tube as above. 2. Uncomplicated line placement. No evidence of pneumothorax. Royal Messer MD Chest X-Ray 12/02/16 1217 Signed Impressions: Service Date/Time: Friday, December 02, 2016 12:56 - CONCLUSION: Cardiomegaly. Left lower lobe atelectasis versus pneumonia. Royal Messer MD Objective Remarks GENERAL: Critically ill appearing appropriately stated age female intubated and sedated SKIN: Warm and dry. Jaundiced appearing HEAD: Atraumatic. Normocephalic. EYES: Pupils equal and round. scleral icterus. No injection or drainage. Extraocular movements intact ENT: No nasal bleeding or discharge. Mucous membranes pink and moist. Orotracheally intubated NECK: Trachea midline. No JVD. CARDIOVASCULAR: Normal rate, regular rhythm. Telemetry sinus rhythm RESPIRATORY: No accessory muscle use. Clear to auscultation. Breath sounds equal bilaterally. GASTROINTESTINAL: Abdomen soft,nondistended, tender to palpation. No guarding. MUSCULOSKELETAL: Extremities without clubbing, cyanosis, or edema. No obvious deformities. NEUROLOGICAL: RASS -2. No gross focal/sensory deficits. Follows commands in all 4 extremities. Procedures 12/02-abdominal ultrasound 12/03- percutaneous cholecystostomy tube placement Date of Insertion: Dec 02, 2016 Line: Central Venous Catheter Side: Left Location: Femoral A/P Assessment and Plan ASSESSMENT This is a critically ill-appearing 71-year-old female in moderate distress with severe abdominal pain presenting with art hiatal hernia and diverticulitis with septic shock concominant cardiogenic shock, multisystem organ dysfunction, requiring aggressive vasopressor support. Guarded prognosis. Abdominal pain Hiatal hernia Diverticulitis Cholelithiasis with cholecystitis Transaminitis Nausea Hyperlipidemia Hypertension History of MO Coronary artery disease-S/P angioplasty 2 History of systolic CHF Acute hypoxemic respiratory failure Probable community-acquired pneumonia Hypokalemia Alcohol use disorder Elevated creatinine Pancytopenia Transaminitis Acute renal failure Multisystem organ failure secondary to septic shock Acute decompensated systolic heart failure Coagulopathy PLAN Plan by systems: Neurologic: Neurochecks per ICU protocol Fentanyl infusion for ventilator synchrony Versed added to medication regimen Monitor for signs of alcohol withdrawal Daily sedation vacation-patient remains GCS 11 T Seizure precautions Tylenol 650 mg every 6 hours when necessary for temp greater than 101 Respiratory: Maintain O2 sat greater than 92% Bronchodilators 36 hours scheduled, every 2 hours PRN 12/02-intubation 7.5 ETT Ventilator bundle Cardiovascular: Initial troponin 0.07->0.11->0.49. Possibly secondary to acute Kidney injury, and low-flow cardiac output state F/U echo results-she has a significant past cardiac medical history Telemetry showing sinus rhythm Patient's being seen regularly by middleware solutions architect in [place] , Shanda Hall MD , obtain cardiology records regarding function Echo 10/03/15 per cardiology medical records([place])-normal LV function,EF 56%, mild septal LVH, mild TR, mild PAH Patient's home meds include ASA 81mg, Metoprolol 50 mg ER (recently discontinued secondary to hypotension by middleware solutions architect 3 weeks ago) will not restart secondary to hemodynamic instability, Rosvustatin at this time will not continue secondary to elevated LFT's continue to trend. aspirin 81 mg- held NYHA classification III-per previous records Lasix 20mg/day-on hold secondary to hemodynamic instability Flowtrac monitoring-trending CO 5.3, CI 2.1 Renal: Last 24 hours urinary output- 375cc Avoid nephrotoxins, creatinine 2.4-> 2.6-> 3.4 today, omeprazole is continue Follow-up urine sodium, urine creatinine - FeNa 1.75 , no eosinophils Consult nephrology Review of medical records obtained from PCP baseline creatinine 1.3,PCP notes reveal patient had renal insufficiency issues in the past Sodium bicarbonate infusion @ 150cc/hr -- Strict I/Os FEN/GI: Replete electrolytes Monitor BMP Sodium bicarbonate infusion at 150 cc/hour Maintain NPO status- F/U GI recommendations OGT to [facility] 12/02 CT abdomen pelvis-diverticulosis without diverticulitis, large hiatal hernia, cholelithiasis, no acute process ultrasound abdomen-no biliary duct dilatation, cholelithiasis with cholecystitis trace pericholecystic fluid 12/03- percutaneous cholecystostomy drain AST 630-> 300 ALT 215-> 151 Alk Phos 349 ->184 Consult GI, Consult General Surgery- concern for possible ischemia with low cardiac output state, no melena or hematemesis-currently not a surgical candidate Hold statin in the setting of elevated LFTs Repeat CT abd /pelvis -pending BNP > 5000 -in the setting of acute renal failure, septic shock, and decompensated heart failure Heme/ID: Zosyn and vancomycin ((day 3), micafungin, Diflucan (Day 2) ID [id number] recommendations 12/03 blood cultures-Enterobacter, Klebsiella pneumoniae, Escherichia coli 12/03 Legionella, influenza , pneumococcal antigen- negative 12/03 sputum culture- NGTD Hematology oncology following INR 1.8-active signs of bleeding Endocrine: Glucose monitoring per ICU protocol -- SSI Prophylaxis: GI Prophylaxis Famotidine DVT Prophylaxis -- SCDs Heparin 5000 SQ BID (on Hold) Lines: PIV's x 2. Central line left IJ, Art line left femoral Dispo: This patient remains critically ill with one or more organ systems which are or may become a threat to life. I have spent in excess of 45 minutes discontinuously in the care and management of this patient. This time is exclusive of procedures, and includes, but is not limited to, evaluation of the patient, review of the medical record, discussions with family, consultants, nursing staff, or respiratory therapy, and documentation in the medical record. 12/04: Discussed case with , updated him on patient's medical status. All questions answered. Living will obtained. Palliative care consult initiated for clarification. Physician Quiana Haywood MD Dec 04, 2016 10:50
[2016-12-04] MEDS: THIAMINE INJ 100 MG in SODIUM CHLORIDE 0.9% INJ 100 ML IV SCH (10:55)
[2016-12-04] MEDS: DOCUSATE SODIUM 50 MG/SENNA 8.6 MG TAB PO SCH ×2 (10:55→20:23)
[2016-12-04] MEDS ORDERED: MIDAZOLAM 100 MG/100 ML INJ 100 ML IV PRN (11:00)
[2016-12-04] MEDS: NOREPINEPHRINE INJ 4 MG in SODIUM CHLOR 0.9% 250 ML INJ 246 ML IV PRN ×3 (11:26)
[2016-12-04] MEDS: SODIUM BICARBONATE 8.4% INJ 150 MEQ in DEXTROSE 5% IN WATE 1000ML INJ 850 ML IV SCH ×4 (11:30→18:29)
--- NOTE | 2016-12-04 11:38 | PD.CONS ---
HPI Service Nephrology Consult Requested By Dr. Mendieta Reason for Consult ARF/CKD Primary Care Physician No Primary Care Physician History of Present Illness Patient is a 71-year-old white female with history of kidney disease baseline creatinine around 1.6 according to the followed by panel laminator Dr. Delgado in [place]. She came in with Abdominal pain and went into septic shock requiring cholecystostomy, blood culture was positive for poly microbial growth Klebsiella , Escherichia coli, and Enterobacter, he is on Zosyn, micafungin And metronidazole, vasopressors, D5 with 3 Ampules of sodium bicarbonate at 150 cc an hour Urine output has dropped creatinine is rising at 3.4 Patient is on ventilator Review of Systems ROS Limitations: Clinical Condition Past Family Social History Allergies: Coded Allergies: No Known Allergies (Unverified , 12/02/16) Past Medical History Severe scoliosis Chronic back pain Coronary artery disease HTN Hyperlipidemia CKD Past Surgical History Right knee replacement Anterior cervical diskectomy/fusion EGD/Colonoscopy Tubal ligation Reported Medications Reported Meds & Active Scripts Active Reported Acidophilus Probiotic (Lactobacillus) 100 Mg (1 Billion Cell) Cap 2 Tab PO DAILY Vitamin D-1000 (Cholecalciferol) 1,000 Unit Tab 2,000 Units PO DAILY Aspirin 81 (Aspirin) 81 Mg Tabdr 81 Mg PO DAILY Rosuvastatin (Rosuvastatin Calcium) 40 Mg Tab 40 Mg PO DAILY Patanol Opth 0.1% (Olopatadine HCl) 0.1 % Drops 1 Drop EACH EYE BID PRN Nitrostat SL (Nitroglycerin) 0.4 Mg Subl 0.4 Mg SL DIRECTED PRN 1 tablet under the tongue as needed for chest pain. Repeat every 5 minutes for a total of 3 DOSES or call 911 if NO relief. Furosemide 20 Mg Tab 20 Mg PO DAILY Celecoxib 200 Mg Cap 200 Mg PO HS Metoprolol Succinate ER 24 HR (Metoprolol Succinate) 50 Mg Tab 50 Mg PO DAILY Gabapentin 300 Mg Cap 300 Mg PO TID Ezetimibe 10 Mg Tab 10 Mg PO DAILY Cephalexin 500 Mg Cap 500 Mg PO DIRECTED FOR DENTIST VISIT Omeprazole 40 Mg Cap 40 Mg PO DAILY Active Ordered Medications Current Medications Medications (Trade) Dose Ordered Sig/Dhruv Route Start Time Stop Time Status Last Admin (NS Flush) 2 ml UNSCH PRN IV FLUSH 12/02/16 16:15 (NS Flush) 2 ml BID IV FLUSH 12/02/16 21:00 12/04/16 08:42 (Tylenol) 650 mg Q6H PRN PO 12/02/16 16:15 (Pepcid Inj) 20 mg DAILY IV PUSH 12/02/16 21:00 12/04/16 08:41 (Heparin Inj) 5,000 units Q12H SQ 12/02/16 17:00 Future Hold 12/04/16 04:28 Miscellaneous Information 1 Q361D XX 12/02/16 16:15 12/02/16 16:15 (Chlorhexidine 2% Cloth) 3 pack Taper DAILY@04 TOP 12/03/16 04:00 11/29/17 03:59 12/04/16 04:00 (Chlorhexidine 2% Cloth) 3 pack UNSCH PRN TOP 12/02/16 16:15 (Keely-Colace) 1 tab BID PO 12/02/16 21:00 12/04/16 10:55 (Milk Of Magnesia Liq) 30 ml Q12H PRN PO 12/02/16 16:15 (Senokot) 17.2 mg Q12H PRN PO 12/02/16 16:15 (Dulcolax Supp) 10 mg DAILY PRN RECTAL 12/02/16 16:15 (Lactulose Liq) 30 ml DAILY PRN PO 12/02/16 16:15 (D50w (Vial) Inj) 50 ml UNSCH PRN IV PUSH 12/02/16 16:45 (Glucagon Inj) 1 mg UNSCH PRN OTHER 12/02/16 16:45 (NovoLIN R SUPPLEMENTAL SCALE) 1 ACHS SLIDING SCALE SQ 12/02/16 17:00 (Ativan Inj) 1 mg Q4H PRN IV PUSH 12/02/16 16:45 12/02/16 20:23 Pharmacy Profile Note 0 ml @ 0 mls/hr UNSCH OTHER 12/02/16 17:00 Piperacillin Sod/ Tazobactam Sod 50 ml @ 200 mls/hr Q6H IV 12/02/16 22:00 12/04/16 10:55 (Peridex 0.12% Liq) 15 ml BID@08,20 MT 12/03/16 08:00 12/03/16 19:42 Fentanyl Citrate 250 ml @ 5 mls/hr TITRATE PRN IV 12/02/16 22:15 12/04/16 01:46 Norepinephrine Bitartrate 4 mg/ Sodium Chloride 250 ml @ 7.5 mls/hr TITRATE PRN IV 12/02/16 22:15 12/04/16 00:00 Vasopressin 40 units/Dextrose 100 ml @ 1.5 mls/hr TITRATE PRN IV 12/02/16 22:45 12/04/16 04:30 (NS Flush) DAILY IV FLUSH 12/03/16 09:00 12/04/16 08:42 (NS Flush) UNSCH PRN IV FLUSH 12/02/16 23:15 (SoluCORTEF INJ) 100 mg Q8H IV PUSH 12/03/16 09:00 12/04/16 08:41 (Tears Naturale Opth Soln) 1 drop Q8HR PRN EACH EYE 12/03/16 08:15 (Duoneb Neb) 1 ampule Q6HR NEB NEB 12/03/16 10:00 12/04/16 10:05 (Duoneb Neb) 1 ampule Q2HR NEB PRN NEB 12/03/16 09:00 Phenylephrine HCl 80 mg/Dextrose 500 ml @ 15 mls/hr TITRATE PRN IV 12/03/16 17:15 12/04/16 04:29 (Brethine Inj) 1 mg UNSCH PRN SQ 12/03/16 17:15 Metronidazole 100 ml @ 100 mls/hr Q8H IV 12/04/16 02:00 12/04/16 10:56 Micafungin Sodium 100 mg/Sodium Chloride 100 ml @ 100 mls/hr Q24H IV 12/04/16 18:00 Sodium Phosphate 15 mmol/Sodium Chloride 155 ml @ 38.75 mls/ hr ONCE ONCE IV 12/04/16 08:30 12/04/16 12:29 12/04/16 10:26 Sodium Bicarbonate 150 meq/Dextrose 1,000 ml @ 150 mls/hr Q6H40M IV 12/04/16 08:30 Multivitamins 10 ml/Folic Acid 1 mg/Sodium Chloride 510.2 ml @ 125 mls/hr Q24H IV 12/04/16 10:00 12/09/16 09:59 12/04/16 10:56 Thiamine HCl 100 mg/Sodium Chloride 101 ml @ 100 mls/hr Q24H IV 12/04/16 11:00 12/07/16 10:59 12/04/16 10:55 Midazolam HCl 100 ml @ 2 mls/hr TITRATE PRN IV 12/04/16 11:00 UNV Family History Noncontributory Social History 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 Vital Signs Vital Signs Date Time Temp Pulse Resp B/P (MAP) Pulse Ox O2 Delivery O2 Flow Rate FiO2 12/04/16 10:06 100 50 12/04/16 09:29 100 12/04/16 07:49 100 50 12/04/16 07:00 85 101/52 12/04/16 07:00 85 101/52 12/04/16 07:00 85 101/52 12/04/16 06:00 88 12/04/16 04:30 90 99/48 12/04/16 04:29 90 97/46 12/04/16 04:00 99.1 90 24 94/59 (71) 100 97/48 (64) 12/04/16 04:00 90 12/04/16 03:21 100 50 12/04/16 02:00 87 12/04/16 00:00 94 24 96/60 (72) 100 102/51 (68) 12/04/16 00:00 50 12/04/16 00:00 94 12/04/16 00:00 94 101/50 12/03/16 23:05 100 50 12/03/16 22:00 88 12/03/16 22:00 88 24 109/67 (81) 100 120/64 (82) 12/03/16 21:09 99 Ventilator 12/03/16 20:00 50 12/03/16 20:00 96 12/03/16 20:00 100.4 96 24 101/61 (74) 99 113/61 (78) 12/03/16 19:33 99 50 12/03/16 18:38 96 50 12/03/16 18:00 98 12/03/16 17:53 97 90/52 12/03/16 16:52 97 97/55 12/03/16 16:16 94 50 12/03/16 16:00 98.1 93 24 108/60 (76) 96 120/62 (81) 12/03/16 16:00 50 12/03/16 16:00 93 12/03/16 14:05 100 100 12/03/16 14:00 98 12/03/16 12:35 106 96/49 12/03/16 12:00 99.2 108 27 103/56 (72) 95 107/56 (73) 12/03/16 12:00 50 12/03/16 12:00 98 Physical Exam GENERAL: Well-nourished, well-developed patient. Sick appearing intubated SKIN: Warm and dry. HEAD: Normocephalic. EYES: No scleral icterus. No injection or drainage. NECK: Supple, trachea midline. No JVD or lymphadenopathy. CARDIOVASCULAR: Regular rate and rhythm without murmurs, gallops, or rubs. RESPIRATORY: Breath sounds equal bilaterally. No accessory muscle use. GASTROINTESTINAL: Abdomen soft, she has cholecystostomy right side EXTREMITIES: No cyanosis, or edema. NEUROLOGICAL: On ventilator Laboratory Laboratory Tests Test 12/03/16 11:43 12/03/16 13:33 12/03/16 17:20 12/03/16 17:35 Blood Gas Puncture Site ART LINE ART LINE Blood Gas Patient Temperature 98.6 98.6 Blood Gas HCO3 15 14 Blood Gas Base Excess -10.1 -10.4 Blood Gas Oxygen Saturation 92 94 Arterial Blood pH 7.31 7.34 Arterial Blood Partial Pressure CO2 30 27 Arterial Blood Partial Pressure O2 80 87 Arterial Blood Oxygen Content 14.3 13.6 Arterial Blood Carboxyhemoglobin 1.3 1.4 Arterial Blood Methemoglobin 1.4 1.0 Blood Gas Hemoglobin 11.0 10.1 Oxygen Delivery Device VENTILATOR VENTILATOR Blood Gas Ventilator Setting PRVC/AC PRVC/AC Blood Gas Inspired Oxygen 50 50 Prothrombin Time 18.7 Prothromb Time International Ratio 1.7 Activated Partial Thromboplast Time 42.2 Fibrinogen 374 Blood Urea Nitrogen 24 Creatinine 3.07 Random Glucose 120 Total Protein 5.4 Calcium Level 6.9 Sodium Level 146 Potassium Level 2.7 Chloride Level 112 Carbon Dioxide Level 17.9 Anion Gap 16 Estimat Glomerular Filtration Rate 15 Protein Corrected Calcium 7.8 Iron Level 6 Total Iron Binding Capacity 221 Percent Iron Saturation 2.7 Ferritin 306 Tumor Marker Alpha Fetoprotein 2.0 Test 12/03/16 19:10 12/04/16 04:15 12/04/16 05:06 Potassium Level 3.0 4.2 White Blood Count 14.9 Red Blood Count 3.46 Hemoglobin 10.6 Hematocrit 31.2 Mean Corpuscular Volume 90.2 Mean Corpuscular Hemoglobin 30.7 Mean Corpuscular Hemoglobin Concent 34.0 Red Cell Distribution Width 15.5 Platelet Count 51 Mean Platelet Volume 10.7 Neutrophils (%) (Auto) 68.9 Lymphocytes (%) (Auto) 9.3 Monocytes (%) (Auto) 4.0 Eosinophils (%) (Auto) 17.6 Basophils (%) (Auto) 0.2 Neutrophils # (Auto) 10.3 Lymphocytes # (Auto) 1.4 Monocytes # (Auto) 0.6 Eosinophils # (Auto) 2.6 Basophils # (Auto) 0.0 CBC Comment AUTO DIFF Differential Total Cells Counted 100 Neutrophils % (Manual) 53 Band Neutrophils % 8 Lymphocytes % 33 Monocytes % 6 Neutrophils # (Manual) 9.1 Differential Comment FINAL DIFF MANUAL Toxic Vacuolation PRESENT Dohle Bodies PRESENT Platelet Estimate LOW Platelet Morphology Comment NORMAL Josue Cells 2+ Red Cell Morphology Comment Prothrombin Time 20.4 Prothromb Time International Ratio 1.8 Activated Partial Thromboplast Time 50.9 Blood Urea Nitrogen 26 Creatinine 3.41 Random Glucose 84 Total Protein 5.0 Albumin 2.0 Calcium Level 6.3 Phosphorus Level 1.8 Magnesium Level 1.9 Alkaline Phosphatase 184 Aspartate Amino Transf (AST/SGOT) 300 Alanine Aminotransferase (ALT/SGPT) 151 Total Bilirubin 4.8 Sodium Level 149 Chloride Level 114 Carbon Dioxide Level 17.4 Anion Gap 18 Estimat Glomerular Filtration Rate 13 Protein Corrected Calcium 7.3 B-Type Natriuretic Peptide GREATER THAN 5000 Random Vancomycin Level 32.5 Blood Gas Puncture Site ART LINE Blood Gas Patient Temperature 98.6 Blood Gas HCO3 15 Blood Gas Base Excess -9.4 Blood Gas Oxygen Saturation 96 Arterial Blood pH 7.35 Arterial Blood Partial Pressure CO2 29 Arterial Blood Partial Pressure O2 129 Arterial Blood Oxygen Content 14.7 Arterial Blood Carboxyhemoglobin 1.2 Arterial Blood Methemoglobin 1.1 Blood Gas Hemoglobin 10.7 Oxygen Delivery Device VENTILATOR Blood Gas Ventilator Setting PRVC/AC Blood Gas Inspired Oxygen 50 Date/Time Source Procedure Growth Status 12/02/16 12:40 Blood Peripheral Aerobic Blood Culture - Preliminary Enterobacter Species Klebsiella Pneumoniae Escherichia Coli Resulted 12/02/16 12:40 Anaerobic Blood Culture - Preliminary Gram Negative Primitivo Resulted 12/03/16 14:55 Fluid Bile Fluid Gram Stain - Final Resulted 12/03/16 14:55 Fluid Bile Fluid Body Fluid Culture Pending Resulted 12/03/16 10:15 Sputum Endotracheal Gram Stain - Final Resulted 12/03/16 10:15 Sputum Culture - Preliminary Gram Negative Primitivo Resulted 12/03/16 09:40 Urine Catheterized Urine Streptococcus pneumoniae Antigen (M - Final PRESUMPTIVE NEGATIVE FOR STREPTOCOCCU... Complete Result Diagram: 12/04/1641412/04/165 Imaging Last Impressions Chest X-Ray 12/04/16 0600 Signed Impressions: Service Date/Time: Sunday, December 04, 2016 04:25 - CONCLUSION: 1. The cardiac silhouette is enlarged in transverse diameter. 2. Bilateral lower lobe atelectasis versus pneumonia. There has been no significant change when compared to the prior exam. Royal Messer MD Abdomen/Pelvis CT 12/04/16 0600 Signed Impressions: Service Date/Time: Sunday, December 04, 2016 09:35 - CONCLUSION: 1. Interval placement of a cholecystostomy tube. 2. Bibasilar consolidation likely related to atelectasis. This is unchanged. 3. Tip of the NG tube in the hiatal hernia. 4. Small volume ascites. 5. No acute abnormality observed. Nain Sharma Jr., MD Percutaneous Cholangiogram 12/03/16 0000 Signed Impressions: Service Date/Time: Saturday, December 03, 2016 14:31 - CONCLUSION: Uncomplicated percutaneous cholecystostomy as above. Nain Sharma Jr., MD Liver Ultrasound 12/02/16 0000 Signed Impressions: Service Date/Time: Friday, December 02, 2016 19:12 - CONCLUSION: 1. Cholelithiasis with wall thickening and trace pericholecystic fluid. 2. No evidence of biliary duct distention. 3. No other significant abnormality. Jak Hughes MD Assessment and Plan Problem List: (1) Acute kidney injury ICD Codes: N17.9 - Acute kidney failure, unspecified Status: Acute Plan: Patient has septic shock and acute tubular necrosis making small amount of urine, check urine sodium and osmolality and creatinine Continue supportive care with IV fluids and antibiotics and vasopressors Consider CRRT If conservative approach fails to reverse the ARF Continue to monitor avoid Nephrotoxins. (2) Acute cholecystitis ICD Codes: K81.0 - Acute cholecystitis Plan: Status post cholecystostomy (3) Sepsis ICD Codes: A41.9 - Sepsis, unspecified organism Status: Acute Plan: On antibiotics Problem Qualifiers (1) Sepsis: Qualified Codes: A41.9 - Sepsis, unspecified organism Myrtle Carlos MD Dec 04, 2016 11:38
--- NOTE | 2016-12-04 12:26 | PD.CONS ---
Consult Service Palliative Care Consult Requested By Dr. Mendieta . Primary Care Physician No Primary Care Physician Reason for Consultation a. To assist with evaluation and management of symptoms including: dyspnea, pain, and debility b. To assist medical decision maker(s) with: better understanding of current medical conditions; weighing benefits/burdens of medical treatment options; making medical treatment decisions. . HPI History of Present Illness Patient is a 71 year old female who presented to the ED via EMS on 12/02/16 for evaluation of fever, shortness of breath, vomiting, diarrhea, and abdominal pain. The patient reported experiencing shortness of breath for the past two weeks that worsened two days prior to her arrival to the hospital. The patient also reported that her abdominal pain and vomiting also began two days ago. * ED workup included the following: Significant laboratory data: WBC:3.1, Hb.5, Hct:33.7, Plt Count:115, Neut %:86.8, Potassium:1.7, Magnesium:0.8, BUN:19 , Creatinine:2.44, eGFR:19, Total bilirubin:3.2, AST:976, ALT:228, Alk Phos:514 , CK:735, Troponin:0.07, BNP:193, Albumin:2.9, Lactic acid:2.5, U/A: Positive UTI. Chest CXR: Cardiomegaly. Left lower lobe atelectasis. CT abdomen/pelvis: No evidence of acute abdominal or pelvic process. No masses identified. Cholelithiasis. Large hiatal hernia present. Diverticulosis without evidence of diverticulitis. ECG: Sinus tachycardia. Patient admitted to the ICU for pneumonia, transaminitis, COCO, sepsis, UTI, hypokalemia, and hypomagnesemia. * Hematology evaluated patient for mild pancytopenia, concluded pancytopenia is likely due to bone marrow suppression from sepsis, plan to continue to closely monitor CBC. * 12/02/16: During the course of the night the patient had significant respiratory decompensation requiring emergent intubation as well as vasopressor support for hypotension. Troponin:0.11, LFTs trending down, persistent hypokalemia, BUN/creatinine continue to worsen. * 12/03/16: GI consulted to evaluate cholecystitis, transaminitis, recommend MRCP once patient stabilizes, NGT to LIWS. IR placed cholecystostomy tube, inspissated bile drainage noted. Blood cultures positive for enterobacter, klebsiella pneumoniae, escheria coli, and gram negative primitivo. UA culture positive for escheria coli. Laboratory values continue to be abnormal despite efforts to correct them, troponin also continues to rise to 0.49. * General surgery consulted for evaluation of cholelithiasis and cholecystitis, no immediate plan for surgery. * 12/04/16: Patient with metabolic acidosis, multiorgan failure, remains intubated, sedated, requiring vasopressin, norepinephrine, and phenylephrine to maintain stable hemodynamics. ID consulted. Nephrology consulted. WBC:14.9, Hb.6, LFTs are trending down, BNP elevated at greater than 5000. Palliative care consulted for clarification of goals. Patient intubated, mechanically ventilated, and sedated. Patient has intermittent spontaneous eye opening, follows commands, localizes to noxious stimuli. Palliative care was consulted to assist with symptom management, as well as to discuss with the patient goals of care, the benefits/burdens of her current illnesses, and options regarding future care. Function/Cognitive Trajectory Patient's reported that she has experienced a physical and functional decline over the past two years. Recently she has ambulated with a walker only short distances in the past year. She has suffered from chronic back for several years and has recently drank more heavily in the past year in order to fall asleep. Review of Systems ROS Limitations: Clinical Condition (ROS obtained from review of EMR and patient's ), Intubated Constitutional: COMPLAINS OF: Fever, Change in appetite Respiratory: COMPLAINS OF: Shortness of breath Cardiovascular: DENIES: Chest pain, Palpitations Gastrointestinal: COMPLAINS OF: Abdominal pain, Diarrhea, Nausea, Vomiting Musculoskeletal: COMPLAINS OF: Muscle aches, Stiffness, Back pain, Decreased range of motion Psychiatric: COMPLAINS OF: Depression Past Family Social History Coded Allergies: No Known Allergies (Unverified , 12/02/16) Past Medical History Severe scoliosis Chronic back pain Coronary artery disease HTN Hyperlipidemia Pulmonary hypertension NYHA class III Past Surgical History Right knee replacement Anterior cervical diskectomy/fusion EGD/Colonoscopy Tubal ligation Reported Medications Reported Meds & Active Scripts Active Reported Acidophilus Probiotic (Lactobacillus) 100 Mg (1 Billion Cell) Cap 2 Tab PO DAILY Vitamin D-1000 (Cholecalciferol) 1,000 Unit Tab 2,000 Units PO DAILY Aspirin 81 (Aspirin) 81 Mg Tabdr 81 Mg PO DAILY Rosuvastatin (Rosuvastatin Calcium) 40 Mg Tab 40 Mg PO DAILY Patanol Opth 0.1% (Olopatadine HCl) 0.1 % Drops 1 Drop EACH EYE BID PRN Nitrostat SL (Nitroglycerin) 0.4 Mg Subl 0.4 Mg SL DIRECTED PRN 1 tablet under the tongue as needed for chest pain. Repeat every 5 minutes for a total of 3 DOSES or call 911 if NO relief. Furosemide 20 Mg Tab 20 Mg PO DAILY Celecoxib 200 Mg Cap 200 Mg PO HS Metoprolol Succinate ER 24 HR (Metoprolol Succinate) 50 Mg Tab 50 Mg PO DAILY Gabapentin 300 Mg Cap 300 Mg PO TID Ezetimibe 10 Mg Tab 10 Mg PO DAILY Cephalexin 500 Mg Cap 500 Mg PO DIRECTED FOR DENTIST VISIT Omeprazole 40 Mg Cap 40 Mg PO DAILY . Current Medications Medications (Trade) Dose Ordered Sig/Dhruv Route Start Time Stop Time Status Last Admin (NS Flush) 2 ml UNSCH PRN IV FLUSH 12/02/16 16:15 (NS Flush) 2 ml BID IV FLUSH 12/02/16 21:00 12/04/16 08:42 (Tylenol) 650 mg Q6H PRN PO 12/02/16 16:15 (Pepcid Inj) 20 mg DAILY IV PUSH 12/02/16 21:00 12/04/16 08:41 (Heparin Inj) 5,000 units Q12H SQ 12/02/16 17:00 Future Hold 12/04/16 04:28 Miscellaneous Information 1 Q361D XX 12/02/16 16:15 12/02/16 16:15 (Chlorhexidine 2% Cloth) 3 pack Taper DAILY@04 TOP 12/03/16 04:00 11/29/17 03:59 12/04/16 04:00 (Chlorhexidine 2% Cloth) 3 pack UNSCH PRN TOP 12/02/16 16:15 (Keely-Colace) 1 tab BID PO 12/02/16 21:00 12/04/16 10:55 (Milk Of Magnesia Liq) 30 ml Q12H PRN PO 12/02/16 16:15 (Senokot) 17.2 mg Q12H PRN PO 12/02/16 16:15 (Dulcolax Supp) 10 mg DAILY PRN RECTAL 12/02/16 16:15 (Lactulose Liq) 30 ml DAILY PRN PO 12/02/16 16:15 (D50w (Vial) Inj) 50 ml UNSCH PRN IV PUSH 12/02/16 16:45 (Glucagon Inj) 1 mg UNSCH PRN OTHER 12/02/16 16:45 (NovoLIN R SUPPLEMENTAL SCALE) 1 ACHS SLIDING SCALE SQ 12/02/16 17:00 (Ativan Inj) 1 mg Q4H PRN IV PUSH 12/02/16 16:45 12/02/16 20:23 Pharmacy Profile Note 0 ml @ 0 mls/hr UNSCH OTHER 12/02/16 17:00 Piperacillin Sod/ Tazobactam Sod 50 ml @ 200 mls/hr Q6H IV 12/02/16 22:00 12/04/16 10:55 (Peridex 0.12% Liq) 15 ml BID@08,20 MT 12/03/16 08:00 12/03/16 19:42 Fentanyl Citrate 250 ml @ 5 mls/hr TITRATE PRN IV 12/02/16 22:15 12/04/16 01:46 Norepinephrine Bitartrate 4 mg/ Sodium Chloride 250 ml @ 7.5 mls/hr TITRATE PRN IV 12/02/16 22:15 12/04/16 11:26 Vasopressin 40 units/Dextrose 100 ml @ 1.5 mls/hr TITRATE PRN IV 12/02/16 22:45 12/04/16 04:30 (NS Flush) DAILY IV FLUSH 12/03/16 09:00 12/04/16 08:42 (NS Flush) UNSCH PRN IV FLUSH 12/02/16 23:15 (SoluCORTEF INJ) 100 mg Q8H IV PUSH 12/03/16 09:00 12/04/16 08:41 (Tears Naturale Opth Soln) 1 drop Q8HR PRN EACH EYE 12/03/16 08:15 (Duoneb Neb) 1 ampule Q6HR NEB NEB 12/03/16 10:00 12/04/16 10:05 (Duoneb Neb) 1 ampule Q2HR NEB PRN NEB 12/03/16 09:00 Phenylephrine HCl 80 mg/Dextrose 500 ml @ 15 mls/hr TITRATE PRN IV 12/03/16 17:15 12/04/16 04:29 (Brethine Inj) 1 mg UNSCH PRN SQ 12/03/16 17:15 Metronidazole 100 ml @ 100 mls/hr Q8H IV 12/04/16 02:00 12/04/16 10:56 Micafungin Sodium 100 mg/Sodium Chloride 100 ml @ 100 mls/hr Q24H IV 12/04/16 18:00 Sodium Phosphate 15 mmol/Sodium Chloride 155 ml @ 38.75 mls/ hr ONCE ONCE IV 12/04/16 08:30 12/04/16 12:29 12/04/16 10:26 Sodium Bicarbonate 150 meq/Dextrose 1,000 ml @ 150 mls/hr Q6H40M IV 12/04/16 08:30 12/04/16 11:30 Multivitamins 10 ml/Folic Acid 1 mg/Sodium Chloride 510.2 ml @ 125 mls/hr Q24H IV 12/04/16 10:00 12/09/16 09:59 12/04/16 10:56 Thiamine HCl 100 mg/Sodium Chloride 101 ml @ 100 mls/hr Q24H IV 12/04/16 11:00 12/07/16 10:59 12/04/16 10:55 Midazolam HCl 100 ml @ 2 mls/hr TITRATE PRN IV 12/04/16 11:00 UNV Family History Paternal aunt had ovarian cancer Paternal aunt had breast cancer Mother from Myasthenia gravis 32 years ago Father had heart disease, 62 from heart attack Paternal GM from stroke . Substance Use Tobacco:Quit smoking for 20 years ago, smoked about 30 years prior to that Alcohol:Heavy drinker, 4 shots daily. Last drink 2 weeks ago Prescription med abuse: None reported Illicits: Medical marijuana Vape form for back pain- has not for 2 weeks . Psychosocial History Patient is originally from [place], [place], she has been to her for 56 years and has two children. 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 She retired in her early 60s when she began spending half of the year between [place] and [place]. Living Will: Copy in medical record Health Care Surrogate: Copy in medical record Durable Power of Hose Handler: Copy in medical record Date completed: 01/04/15 . Health Care Surrogate(s): Marco Antonio Coscia () Alternate HCS: Alvin Flores or Pippa Flores . Documented care wishes: Standard living will susie, patient documented she would not want life prolonging measures if she had a terminal condition or was in a persistent vegetative state. . Ethical and Legal Issues None known. . Physical Exam Vital Signs Date Time Temp Pulse Resp B/P (MAP) Pulse Ox O2 Delivery O2 Flow Rate FiO2 12/04/16 11:26 79 93/53 12/04/16 10:06 100 50 12/04/16 09:29 100 12/04/16 07:49 100 50 12/04/16 07:00 85 101/52 12/04/16 07:00 85 101/52 12/04/16 07:00 85 101/52 12/04/16 06:00 88 12/04/16 04:30 90 99/48 12/04/16 04:29 90 97/46 12/04/16 04:00 99.1 90 24 94/59 (71) 100 97/48 (64) 12/04/16 04:00 90 12/04/16 03:21 100 50 12/04/16 02:00 87 12/04/16 00:00 94 24 96/60 (72) 100 102/51 (68) 12/04/16 00:00 50 12/04/16 00:00 94 12/04/16 00:00 94 101/50 12/03/16 23:05 100 50 12/03/16 22:00 88 12/03/16 22:00 88 24 109/67 (81) 100 120/64 (82) 12/03/16 21:09 99 Ventilator 12/03/16 20:00 50 12/03/16 20:00 96 12/03/16 20:00 100.4 96 24 101/61 (74) 99 113/61 (78) 12/03/16 19:33 99 50 12/03/16 18:38 96 50 12/03/16 18:00 98 12/03/16 17:53 97 90/52 12/03/16 16:52 97 97/55 12/03/16 16:16 94 50 12/03/16 16:00 98.1 93 24 108/60 (76) 96 120/62 (81) 12/03/16 16:00 50 12/03/16 16:00 93 12/03/16 14:05 100 100 12/03/16 14:00 98 12/03/16 12:35 106 96/49 12/03/16 12:00 99.2 108 27 103/56 (72) 95 107/56 (73) 12/03/16 12:00 50 12/03/16 12:00 98 12/04/16 12/05/16 19:00 07:00 Intake Total 120 ml Balance 120 ml Intake IV Total 120 ml Exam CONSTITUTIONAL/GENERAL: This is a critically ill patient, intubated and mechanically ventilated. TUBES/LINES/DRAINS: ETT, OGT, CVL LIJ, PIVx 2, Left femoral arterial line, soft wrist restraints SKIN: No jaundice, rashes, or lesions. Ecchymoses on upper extremities. No wounds seen anteriorly. Skin temperature appropriate. Not diaphoretic. HEAD: Atraumatic. Normocephalic. EYES: Pupils equal and round and reactive. No injection or drainage. Fundi not examined. ENT: Unable to assess secondary to clinical condition. NECK: Trachea midline. No palpable thyroid enlargement or nodularity. CARDIOVASCULAR: Regular rate and rhythm without murmurs, gallops, or rubs. No JVD. Peripheral pulses symmetric. RESPIRATORY/CHEST: Symmetric, mechanically ventilated. Clear to auscultation. Breath sounds equal bilaterally. No wheezes, rales, or rhonchi. GASTROINTESTINAL: Abdomen soft, tender, nondistended. No hepato-splenomegaly, or palpable masses. No guarding. Bowel sounds present. GENITOURINARY: Without palpable bladder distension. Peterson catheter in place. MUSCULOSKELETAL: Extremities without clubbing, cyanosis, or edema. No joint tenderness or effusion noted. No calf tenderness. No mottling or clubbing. LYMPHATICS: No palpable cervical or supraclavicular adenopathy. NEUROLOGICAL: Sedated. Follows simple one step commands. Localizes to noxious stimuli. PSYCHIATRIC: Unable to assess secondary to clinical condition. Diagnostic Tests Laboratory Laboratory Tests Test 12/02/16 12:40 12/02/16 15:20 12/02/16 19:35 12/02/16 20:00 White Blood Count 3.1 TH/MM3 (4.0-11.0) Red Blood Count 3.74 MIL/MM3 (4.00-5.30) Hemoglobin 11.5 GM/DL (11.6-15.3) Hematocrit 33.7 % (35.0-46.0) Mean Corpuscular Volume 90.2 FL (80.0-100.0) Mean Corpuscular Hemoglobin 30.7 PG (27.0-34.0) Mean Corpuscular Hemoglobin Concent 34.0 % (32.0-36.0) Red Cell Distribution Width 14.6 % (11.6-17.2) Platelet Count 115 TH/MM3 (150-450) Mean Platelet Volume 7.6 FL (7.0-11.0) Neutrophils (%) (Auto) 86.8 % (16.0-70.0) Lymphocytes (%) (Auto) 8.7 % (9.0-44.0) Monocytes (%) (Auto) 3.8 % (0.0-8.0) Eosinophils (%) (Auto) 0.2 % (0.0-4.0) Basophils (%) (Auto) 0.5 % (0.0-2.0) Neutrophils # (Auto) 2.7 TH/MM3 (1.8-7.7) Lymphocytes # (Auto) 0.3 TH/MM3 (1.0-4.8) Monocytes # (Auto) 0.1 TH/MM3 (0-0.9) Eosinophils # (Auto) 0.0 TH/MM3 (0-0.4) Basophils # (Auto) 0.0 TH/MM3 (0-0.2) CBC Comment DIFF FINAL Differential Comment Prothrombin Time 13.9 SEC (9.8-11.6) Prothromb Time International Ratio 1.2 RATIO Activated Partial Thromboplast Time 24.3 SEC (24.3-30.1) Urine Color YELLOW (YELLW/STRAW) Urine Turbidity HAZY (CLEAR) Urine pH 5.5 (5.0-8.5) Urine Specific [place] 1.009 (1.002-1.035) Urine Protein 30 mg/dL (NEG-TRACE) Urine Glucose (UA) NEG mg/dL (NEG) Urine Ketones TRACE mg/dL (NEG) Urine Occult Blood MOD (NEG) Urine Nitrite NEG (NEG) Urine Bilirubin NEG (NEG) Urine Urobilinogen 2.0 MG/DL (LESS THAN Urine Leukocyte Esterase TRACE (NEG) Urine RBC 2 /hpf (0-3) Urine WBC 12 /hpf (0-5) Urine Squamous Epithelial Cells <1 /hpf (0-5) Urine Amorphous Sediment FEW Urine Bacteria MANY /hpf (NONE) Microscopic Urinalysis Comment CATH-CULTURE IND Blood Gas Puncture Site RT RADIAL Blood Gas Patient Temperature 98.6 Blood Gas HCO3 23 mmol/L (22-26) Blood Gas Base Excess -0.3 mmol/L (-2-2) Blood Gas Oxygen Saturation 88 % (90-100) Arterial Blood pH 7.43 (7.380-7.420) Arterial Blood Partial Pressure CO2 36 mmHg (38-42) Arterial Blood Partial Pressure O2 58 mmHG (61-120) Arterial Blood Oxygen Content 14.2 Vol % (12.0-20.0) Arterial Blood Carboxyhemoglobin 1.6 % (0-4) Arterial Blood Methemoglobin 0.7 % (0-2) Blood Gas Hemoglobin 11.5 G/DL (12.0-16.0) Oxygen Delivery Device NASAL CANNULA Blood Gas Liter Flow 5 L/M Blood Urea Nitrogen 19 MG/DL (7-18) 17 MG/DL (7-18) Creatinine 2.44 MG/DL (0.50-1.00) 2.51 MG/DL (0.50-1.00) Random Glucose 123 MG/DL (74-106) 132 MG/DL (74-106) Total Protein 6.7 GM/DL (6.4-8.2) 6.4 GM/DL (6.4-8.2) Albumin 2.9 GM/DL (3.4-5.0) 2.6 GM/DL (3.4-5.0) Calcium Level 7.5 MG/DL (8.5-10.1) 7.4 MG/DL (8.5-10.1) Magnesium Level 0.8 MG/DL (1.5-2.5) Alkaline Phosphatase 514 U/L (45-117) 412 U/L (45-117) Aspartate Amino Transf (AST/SGOT) 976 U/L (15-37) 753 U/L (15-37) Alanine Aminotransferase (ALT/SGPT) 228 U/L (10-53) 215 U/L (10-53) Total Bilirubin 3.2 MG/DL (0.2-1.0) 4.0 MG/DL (0.2-1.0) Sodium Level 140 MEQ/L (136-145) 144 MEQ/L (136-145) Potassium Level 1.7 MEQ/L (3.5-5.1) 2.2 MEQ/L (3.5-5.1) Chloride Level 105 MEQ/L (98-107) 108 MEQ/L (98-107) Carbon Dioxide Level 22.8 MEQ/L (21.0-32.0) 24.4 MEQ/L (21.0-32.0) Anion Gap 12 MEQ/L (5-15) 12 MEQ/L (5-15) Estimat Glomerular Filtration Rate 19 ML/MIN (>89) 19 ML/MIN (>89) Lactic Acid Level 2.5 mmol/L (0.4-2.0) 1.4 mmol/L (0.4-2.0) Total Creatine Kinase 735 U/L (26-192) Creatine Kinase MB 1.0 NG/ML (0.5-3.6) Creatine Kinase MB % 0.1 % (0.0-4.0) Troponin I 0.07 NG/ML (0.02-0.05) 0.11 NG/ML (0.02-0.05) B-Type Natriuretic Peptide 193 PG/ML (0-100) Lipase 187 U/L (73-393) Protein Corrected Calcium 7.7 MG/DL (8.5-10.1) Direct Bilirubin 3.2 MG/DL (0.0-0.2) Indirect Bilirubin 0.8 MG/DL (0.0-0.8) Nasal Screen MRSA (PCR) MRSA NOT DETECTED (NOT Test 12/02/16 21:36 12/02/16 23:22 12/03/16 00:08 12/03/16 04:17 Blood Gas Puncture Site RT RADIAL NICOLE Blood Gas Patient Temperature 98.6 98.6 Blood Gas HCO3 22 mmol/L (22-26) 15 mmol/L (22-26) Blood Gas Base Excess -5.1 mmol/L (-2-2) -9.5 mmol/L (-2-2) Blood Gas Oxygen Saturation 90 % (90-100) 97 % (90-100) Arterial Blood pH 7.17 (7.380-7.420) 7.32 (7.380-7.420) Arterial Blood Partial Pressure CO2 64 mmHg (38-42) 31 mmHg (38-42) Arterial Blood Partial Pressure O2 82 mmHg (61-120) 167 mmHg (61-120) Arterial Blood Oxygen Content 13.8 Vol % (12.0-20.0) 17.3 Vol % (12.0-20.0) Arterial Blood Carboxyhemoglobin 1.4 % (0-4) 1.4 % (0-4) Arterial Blood Methemoglobin 1.2 % (0-2) 1.1 % (0-2) Blood Gas Hemoglobin 10.8 G/DL (12.0-16.0) 12.5 G/DL (12.0-16.0) Oxygen Delivery Device NRB VENTILATOR Blood Gas Liter Flow 15 L/M Blood Gas Ventilator Setting SEE COMMENT Blood Gas Inspired Oxygen 100 % Magnesium Level 1.3 MG/DL (1.5-2.5) 2.8 MG/DL (1.5-2.5) White Blood Count 7.4 TH/MM3 (4.0-11.0) Red Blood Count 3.59 MIL/MM3 (4.00-5.30) Hemoglobin 11.3 GM/DL (11.6-15.3) Hematocrit 32.5 % (35.0-46.0) Mean Corpuscular Volume 90.6 FL (80.0-100.0) Mean Corpuscular Hemoglobin 31.4 PG (27.0-34.0) Mean Corpuscular Hemoglobin Concent 34.6 % (32.0-36.0) Red Cell Distribution Width 15.0 % (11.6-17.2) Platelet Count 107 TH/MM3 (150-450) Mean Platelet Volume 9.3 FL (7.0-11.0) Neutrophils (%) (Auto) 88.0 % (16.0-70.0) Lymphocytes (%) (Auto) 9.2 % (9.0-44.0) Monocytes (%) (Auto) 2.3 % (0.0-8.0) Eosinophils (%) (Auto) 0.3 % (0.0-4.0) Basophils (%) (Auto) 0.2 % (0.0-2.0) Neutrophils # (Auto) 6.5 TH/MM3 (1.8-7.7) Lymphocytes # (Auto) 0.7 TH/MM3 (1.0-4.8) Monocytes # (Auto) 0.2 TH/MM3 (0-0.9) Eosinophils # (Auto) 0.0 TH/MM3 (0-0.4) Basophils # (Auto) 0.0 TH/MM3 (0-0.2) CBC Comment DIFF FINAL Differential Comment Blood Urea Nitrogen 19 MG/DL (7-18) Creatinine 2.61 MG/DL (0.50-1.00) Random Glucose 180 MG/DL (74-106) Total Protein 5.6 GM/DL (6.4-8.2) Albumin 2.3 GM/DL (3.4-5.0) Calcium Level 6.9 MG/DL (8.5-10.1) Phosphorus Level 0.9 MG/DL (2.5-4.9) Alkaline Phosphatase 349 U/L (45-117) Aspartate Amino Transf (AST/SGOT) 630 U/L (15-37) Alanine Aminotransferase (ALT/SGPT) 215 U/L (10-53) Total Bilirubin 5.5 MG/DL (0.2-1.0) Sodium Level 146 MEQ/L (136-145) Potassium Level 2.2 MEQ/L (3.5-5.1) Chloride Level 110 MEQ/L (98-107) Carbon Dioxide Level 18.6 MEQ/L (21.0-32.0) Anion Gap 17 MEQ/L (5-15) Estimat Glomerular Filtration Rate 18 ML/MIN (>89) Protein Corrected Calcium 7.7 MG/DL (8.5-10.1) Troponin I 0.49 NG/ML (0.02-0.05) Triglycerides Level 102 MG/DL (42-150) Cholesterol Level LESS THAN 50 MG/DL LDL Cholesterol 13 MG/DL (0-99) HDL Cholesterol 16.6 MG/DL (40.0-60.0) Cholesterol/HDL Ratio 3.01 RATIO Random Vancomycin Level 11.9 COMMENT Test 12/03/16 09:40 12/03/16 11:43 12/03/16 13:33 12/03/16 17:20 Urine Eosinophils NONE SEEN /HPF (NONE SEEN) Urine Random Creatinine 67.2 MG/DL Urine Random Sodium 66 MEQ/L Blood Gas Puncture Site ART LINE Blood Gas Patient Temperature 98.6 Blood Gas HCO3 15 mmol/L (22-26) Blood Gas Base Excess -10.1 mmol/L (-2-2) Blood Gas Oxygen Saturation 92 % (90-100) Arterial Blood pH 7.31 (7.380-7.420) Arterial Blood Partial Pressure CO2 30 mmHg (38-42) Arterial Blood Partial Pressure O2 80 mmHg (61-120) Arterial Blood Oxygen Content 14.3 Vol % (12.0-20.0) Arterial Blood Carboxyhemoglobin 1.3 % (0-4) Arterial Blood Methemoglobin 1.4 % (0-2) Blood Gas Hemoglobin 11.0 G/DL (12.0-16.0) Oxygen Delivery Device VENTILATOR Blood Gas Ventilator Setting PRVC/AC Blood Gas Inspired Oxygen 50 % Prothrombin Time 18.7 SEC (9.8-11.6) Prothromb Time International Ratio 1.7 RATIO Activated Partial Thromboplast Time 42.2 SEC (24.3-30.1) Fibrinogen 374 mg/dL (227-377) Blood Urea Nitrogen 24 MG/DL (7-18) Creatinine 3.07 MG/DL (0.50-1.00) Random Glucose 120 MG/DL (74-106) Total Protein 5.4 GM/DL (6.4-8.2) Calcium Level 6.9 MG/DL (8.5-10.1) Sodium Level 146 MEQ/L (136-145) Potassium Level 2.7 MEQ/L (3.5-5.1) Chloride Level 112 MEQ/L (98-107) Carbon Dioxide Level 17.9 MEQ/L (21.0-32.0) Anion Gap 16 MEQ/L (5-15) Estimat Glomerular Filtration Rate 15 ML/MIN (>89) Protein Corrected Calcium 7.8 MG/DL (8.5-10.1) Iron Level 6 MCG/DL (50-170) Total Iron Binding Capacity 221 MCG/DL (250-450) Percent Iron Saturation 2.7 % (20-50) Ferritin 306 NG/ML (8-252) Tumor Marker Alpha Fetoprotein 2.0 NG/ML (0.5-8.0) Test 12/03/16 17:35 12/03/16 19:10 12/04/16 04:15 12/04/16 05:06 Blood Gas Puncture Site ART LINE ART LINE Blood Gas Patient Temperature 98.6 98.6 Blood Gas HCO3 14 mmol/L (22-26) 15 mmol/L (22-26) Blood Gas Base Excess -10.4 mmol/L (-2-2) -9.4 mmol/L (-2-2) Blood Gas Oxygen Saturation 94 % (90-100) 96 % (90-100) Arterial Blood pH 7.34 (7.380-7.420) 7.35 (7.380-7.420) Arterial Blood Partial Pressure CO2 27 mmHg (38-42) 29 mmHg (38-42) Arterial Blood Partial Pressure O2 87 mmHg (61-120) 129 mmHg (61-120) Arterial Blood Oxygen Content 13.6 Vol % (12.0-20.0) 14.7 Vol % (12.0-20.0) Arterial Blood Carboxyhemoglobin 1.4 % (0-4) 1.2 % (0-4) Arterial Blood Methemoglobin 1.0 % (0-2) 1.1 % (0-2) Blood Gas Hemoglobin 10.1 G/DL (12.0-16.0) 10.7 G/DL (12.0-16.0) Oxygen Delivery Device VENTILATOR VENTILATOR Blood Gas Ventilator Setting PRVC/AC PRVC/AC Blood Gas Inspired Oxygen 50 % 50 % Potassium Level 3.0 MEQ/L (3.5-5.1) 4.2 MEQ/L (3.5-5.1) White Blood Count 14.9 TH/MM3 (4.0-11.0) Red Blood Count 3.46 MIL/MM3 (4.00-5.30) Hemoglobin 10.6 GM/DL (11.6-15.3) Hematocrit 31.2 % (35.0-46.0) Mean Corpuscular Volume 90.2 FL (80.0-100.0) Mean Corpuscular Hemoglobin 30.7 PG (27.0-34.0) Mean Corpuscular Hemoglobin Concent 34.0 % (32.0-36.0) Red Cell Distribution Width 15.5 % (11.6-17.2) Platelet Count 51 TH/MM3 (150-450) Mean Platelet Volume 10.7 FL (7.0-11.0) Neutrophils (%) (Auto) 68.9 % (16.0-70.0) Lymphocytes (%) (Auto) 9.3 % (9.0-44.0) Monocytes (%) (Auto) 4.0 % (0.0-8.0) Eosinophils (%) (Auto) 17.6 % (0.0-4.0) Basophils (%) (Auto) 0.2 % (0.0-2.0) Neutrophils # (Auto) 10.3 TH/MM3 (1.8-7.7) Lymphocytes # (Auto) 1.4 TH/MM3 (1.0-4.8) Monocytes # (Auto) 0.6 TH/MM3 (0-0.9) Eosinophils # (Auto) 2.6 TH/MM3 (0-0.4) Basophils # (Auto) 0.0 TH/MM3 (0-0.2) CBC Comment AUTO DIFF Differential Total Cells Counted 100 Neutrophils % (Manual) 53 % (16-70) Band Neutrophils % 8 % (0-6) Lymphocytes % 33 % (9-44) Monocytes % 6 % (0-8) Neutrophils # (Manual) 9.1 TH/MM3 (1.8-7.7) Differential Comment FINAL DIFF MANUAL Toxic Vacuolation PRESENT (NONE SEEN) Dohle Bodies PRESENT (NONE SEEN) Platelet Estimate LOW (NORMAL) Platelet Morphology Comment NORMAL (NORMAL) Josue Cells 2+ (NORMAL) Red Cell Morphology Comment (NORMAL) Prothrombin Time 20.4 SEC (9.8-11.6) Prothromb Time International Ratio 1.8 RATIO Activated Partial Thromboplast Time 50.9 SEC (24.3-30.1) Blood Urea Nitrogen 26 MG/DL (7-18) Creatinine 3.41 MG/DL (0.50-1.00) Random Glucose 84 MG/DL (74-106) Total Protein 5.0 GM/DL (6.4-8.2) Albumin 2.0 GM/DL (3.4-5.0) Calcium Level 6.3 MG/DL (8.5-10.1) Phosphorus Level 1.8 MG/DL (2.5-4.9) Magnesium Level 1.9 MG/DL (1.5-2.5) Alkaline Phosphatase 184 U/L (45-117) Aspartate Amino Transf (AST/SGOT) 300 U/L (15-37) Alanine Aminotransferase (ALT/SGPT) 151 U/L (10-53) Total Bilirubin 4.8 MG/DL (0.2-1.0) Sodium Level 149 MEQ/L (136-145) Chloride Level 114 MEQ/L (98-107) Carbon Dioxide Level 17.4 MEQ/L (21.0-32.0) Anion Gap 18 MEQ/L (5-15) Estimat Glomerular Filtration Rate 13 ML/MIN (>89) Protein Corrected Calcium 7.3 MG/DL (8.5-10.1) B-Type Natriuretic Peptide GREATER THAN 5000 PG/ML Random Vancomycin Level 32.5 COMMENT Result Diagram: 12/04/16 0415 12/04/16 0415 Microbiology Microbiology Date/Time Source Procedure Growth Status 12/02/16 12:40 Blood Peripheral Aerobic Blood Culture - Preliminary Enterobacter Species Klebsiella Pneumoniae Escherichia Coli Resulted 12/02/16 12:40 Anaerobic Blood Culture - Preliminary Gram Negative Primitivo Resulted 12/02/16 12:35 Blood Peripheral Aerobic Blood Culture - Preliminary Gram Negative Primitivo Resulted 12/02/16 12:35 Anaerobic Blood Culture - Preliminary Gram Negative Primitivo Resulted 12/03/16 14:55 Fluid Bile Fluid Gram Stain - Final Resulted 12/03/16 14:55 Fluid Bile Fluid Body Fluid Culture Pending Resulted 12/03/16 10:15 Sputum Endotracheal Gram Stain - Final Resulted 12/03/16 10:15 Sputum Culture - Preliminary Gram Negative Primitivo Resulted 12/03/16 10:15 Nasal Washing Influenza Types A,B Antigen (MURIEL) - Final NEGATIVE FOR FLU A AND B ANTIGEN.... Complete 12/03/16 09:40 Urine Catheterized Urine Streptococcus pneumoniae Antigen (M - Final PRESUMPTIVE NEGATIVE FOR STREPTOCOCCU... Complete 12/03/16 09:40 Urine Catheterized Urine Legionella Antigen - Final PRESUMPTIVE NEGATIVE FOR LEGIONELLA P... Complete 12/02/16 12:40 Urine Catheterized Urine Urine Culture - Final Escherichia Coli Complete Patient/Family Conference Family Conference Location: Bedside Issues Discussed: * Palliative care role, purpose, approach * Additional medical, psychosocial, and spiritual history * Patients general health, functional status, and cognitive changes in the months leading up to the current hospitalization * Patient/family understanding of the current medical problems * Patient/family understanding of prognosis * Patients goals of care as best understood from advance directives and/or conversations and/or values * Current medical treatment options and benefits/burdens of those options * Code status * Questions answered to the best of my ability * Palliative care contact information provided Assessment and Plan Disease Oriented Problem List: (1) Sepsis (2) Metabolic acidosis (3) Acute cholecystitis (4) Respiratory failure Symptom Scale: (1) Dyspnea (2) Debility (3) Pain Pertinent Non-Medical Issues Psychosocial:Patient is originally from [place], [place], she has been to her for 56 years and has two children. 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 She retired in her early 60s when she began spending half of the year between [place] and [place]. Spiritual: Legal: None known. Ethical issues impacting care:None known. Important Contacts Marco Antonio Flores () [phone] . Prognosis Patient has experienced a physical and functional decline over the past two years. She has suffered from chronic back pain due to scoliosis and has recently drank daily heavily to alleviate the pain. The patient was admitted for sepsis followed by respiratory distress requiring intubation, she has continued to decline and has now progressed into multiorgan failure. She is at an increased risk for complications/setbacks due to her advanced age, multiple comorbidities, and current clinical status. . Code Status: Alternative Code Plan * Legal decision maker: Patient does not have the capacity to make her own health care decisions. It is unclear at this time if she will regain the capacity to make her own health care decisions. Documented HCS is patient's Marco Antonio Flores [phone], alternate HCS are Alvin Flores or Pippa Flores. * CODE STATUS:Alternative code. Discussed risks, benefits and limitations of CPR given the patient's current clinical status. Patient's has opted to change her code status to an alternative code and has confirmed he does want CPR for his if she was to suffer from a cardiac arrest or lethal arrhythmia. * GOALS: Aggressive short of CPR. Patient's stated today his goals for his are aggressive short of CPR, he verbalized understanding of the limitations associated with CPR given the setting of multiorgan failure. He stated his 's quality of life over the past few years has deteriorated and based on her living will/previous conversations it would not be acceptable for her to have any further decline in her quality of life. * SYMPTOM MANAGEMENT: * --pain: Patient at ongoing risk for pain secondary to intubation, mechanical ventilation, and bedbound status. Patient is currently sedated on versed and fentanyl. No recommendations at this time, further recommendations pending hospital course. * --dyspnea: Patient is intubated and mechanically ventilated, duonebs scheduled q 6hr and q 2hr PRN ordered. No recommendations at this time. * --debility: Secondary to current clinical status, mechanical ventilation, bedbound status. Patient is critically ill at this time and is not a candidate for PT. No recommendations at this time. * Palliative care contact information provided. * Palliative care will continue to follow during hospital course as condition evolves, to assist patient/family/decision-maker with understanding of medical conditions, weighing benefit/burdens of treatment options, for clarification of goals of treatment. Additionally will assist with symptoms of palliative concern. Thank you for the opportunity to participate in the care of Ms. Clifton. Kallie Miranda Dec 04, 2016 12:26
[2016-12-04 13:05] LABS: HEPATITIS A AB IGM NEGATIVE (NEGATIVE); HEPATITIS B SURFACE ANTIGEN NEGATIVE (NEGATIVE); HEPATITIS C AB IgG NEGATIVE (NEGATIVE)
--- NOTE | 2016-12-04 13:32 | HHI.PR ---
Subjective Subjective Notes Intubated/Sedated Objective Vitals/I&O Vital Signs Date Time Temp Pulse Resp B/P (MAP) Pulse Ox O2 Delivery O2 Flow Rate FiO2 12/04/16 12:00 98.2 75 24 88/56 (67) 100 102/57 (72) 12/04/16 10:06 50 12/03/16 21:09 Ventilator 12/02/16 21:32 15.00 Labs Laboratory Tests Test 12/03/16 13:33 12/03/16 17:20 12/03/16 17:35 12/03/16 19:10 Prothrombin Time 18.7 Prothromb Time International Ratio 1.7 Activated Partial Thromboplast Time 42.2 Fibrinogen 374 Blood Urea Nitrogen 24 Creatinine 3.07 Random Glucose 120 Total Protein 5.4 Calcium Level 6.9 Sodium Level 146 Potassium Level 2.7 3.0 Chloride Level 112 Carbon Dioxide Level 17.9 Anion Gap 16 Estimat Glomerular Filtration Rate 15 Protein Corrected Calcium 7.8 Iron Level 6 Total Iron Binding Capacity 221 Percent Iron Saturation 2.7 Ferritin 306 Tumor Marker Alpha Fetoprotein 2.0 Hepatitis A IgM Antibody NEGATIVE Hepatitis B Surface Antigen NEGATIVE Hepatitis B Core IgM Antibody NEGATIVE Hepatitis C Antibody NEGATIVE Blood Gas Puncture Site ART LINE Blood Gas Patient Temperature 98.6 Blood Gas HCO3 14 Blood Gas Base Excess -10.4 Blood Gas Oxygen Saturation 94 Arterial Blood pH 7.34 Arterial Blood Partial Pressure CO2 27 Arterial Blood Partial Pressure O2 87 Arterial Blood Oxygen Content 13.6 Arterial Blood Carboxyhemoglobin 1.4 Arterial Blood Methemoglobin 1.0 Blood Gas Hemoglobin 10.1 Oxygen Delivery Device VENTILATOR Blood Gas Ventilator Setting PRVC/AC Blood Gas Inspired Oxygen 50 Test 12/04/16 04:15 12/04/16 05:06 12/04/16 12:00 White Blood Count 14.9 Red Blood Count 3.46 Hemoglobin 10.6 Hematocrit 31.2 Mean Corpuscular Volume 90.2 Mean Corpuscular Hemoglobin 30.7 Mean Corpuscular Hemoglobin Concent 34.0 Red Cell Distribution Width 15.5 Platelet Count 51 Mean Platelet Volume 10.7 Neutrophils (%) (Auto) 68.9 Lymphocytes (%) (Auto) 9.3 Monocytes (%) (Auto) 4.0 Eosinophils (%) (Auto) 17.6 Basophils (%) (Auto) 0.2 Neutrophils # (Auto) 10.3 Lymphocytes # (Auto) 1.4 Monocytes # (Auto) 0.6 Eosinophils # (Auto) 2.6 Basophils # (Auto) 0.0 CBC Comment AUTO DIFF Differential Total Cells Counted 100 Neutrophils % (Manual) 53 Band Neutrophils % 8 Lymphocytes % 33 Monocytes % 6 Neutrophils # (Manual) 9.1 Differential Comment FINAL DIFF MANUAL Toxic Vacuolation PRESENT Dohle Bodies PRESENT Platelet Estimate LOW Platelet Morphology Comment NORMAL Stanton Cells 2+ Red Cell Morphology Comment Prothrombin Time 20.4 Prothromb Time International Ratio 1.8 Activated Partial Thromboplast Time 50.9 Blood Urea Nitrogen 26 Creatinine 3.41 Random Glucose 84 Total Protein 5.0 Albumin 2.0 Calcium Level 6.3 Phosphorus Level 1.8 Magnesium Level 1.9 Alkaline Phosphatase 184 Aspartate Amino Transf (AST/SGOT) 300 Alanine Aminotransferase (ALT/SGPT) 151 Total Bilirubin 4.8 Sodium Level 149 Potassium Level 4.2 Chloride Level 114 Carbon Dioxide Level 17.4 Anion Gap 18 Estimat Glomerular Filtration Rate 13 Protein Corrected Calcium 7.3 B-Type Natriuretic Peptide GREATER THAN 5000 Random Vancomycin Level 32.5 Blood Gas Puncture Site ART LINE ART LINE Blood Gas Patient Temperature 98.6 98.6 Blood Gas HCO3 15 17 Blood Gas Base Excess -9.4 -6.0 Blood Gas Oxygen Saturation 96 97 Arterial Blood pH 7.35 7.44 Arterial Blood Partial Pressure CO2 29 26 Arterial Blood Partial Pressure O2 129 141 Arterial Blood Oxygen Content 14.7 14.3 Arterial Blood Carboxyhemoglobin 1.2 1.1 Arterial Blood Methemoglobin 1.1 1.2 Blood Gas Hemoglobin 10.7 10.3 Oxygen Delivery Device VENTILATOR VENTILATOR Blood Gas Ventilator Setting PRVC/AC SEE COMMENTS Blood Gas Inspired Oxygen 50 50 Date/Time Source Procedure Growth Status 12/02/16 12:40 Blood Peripheral Aerobic Blood Culture - Preliminary Enterobacter Species Klebsiella Pneumoniae Escherichia Coli Resulted 12/02/16 12:40 Anaerobic Blood Culture - Preliminary Gram Negative Primitivo Resulted 12/03/16 14:55 Fluid Bile Fluid Gram Stain - Final Resulted 12/03/16 14:55 Fluid Bile Fluid Body Fluid Culture Pending Resulted 12/03/16 10:15 Sputum Endotracheal Gram Stain - Final Resulted 12/03/16 10:15 Sputum Culture - Preliminary Gram Negative Primitivo Resulted 12/03/16 09:40 Urine Catheterized Urine Streptococcus pneumoniae Antigen (M - Final PRESUMPTIVE NEGATIVE FOR STREPTOCOCCU... Complete Radiology Last 48 hours Impressions Percutaneous Cholangiogram 12/03/16 0000 Signed Impressions: Service Date/Time: Saturday, December 03, 2016 14:31 - CONCLUSION: Uncomplicated percutaneous cholecystostomy as above. Nain Sharma Jr., MD Chest X-Ray 12/02/16 2305 Signed Impressions: Service Date/Time: Friday, December 02, 2016 23:12 - CONCLUSION: 1. Satisfactory position of endotracheal tube as above. 2. Uncomplicated line placement. No evidence of pneumothorax. Royal Messer MD Chest X-Ray 12/02/16 1217 Signed Impressions: Service Date/Time: Friday, December 02, 2016 12:56 - CONCLUSION: Cardiomegaly. Left lower lobe atelectasis versus pneumonia. Royal Messer MD Liver Ultrasound 12/02/16 0000 Signed Impressions: Service Date/Time: Friday, December 02, 2016 19:12 - CONCLUSION: 1. Cholelithiasis with wall thickening and trace pericholecystic fluid. 2. No evidence of biliary duct distention. 3. No other significant abnormality. Jak Hughes MD Abdomen/Pelvis CT 12/02/16 0000 Signed Impressions: Service Date/Time: Friday, December 02, 2016 15:09 - CONCLUSION: 1. No evidence of acute abdominal or pelvic process. No masses are identified. 2. Cholelithiasis 3. Left lower lobe atelectasis versus pneumonia. 4. A large hiatal hernia is present. 5. Diverticulosis without evidence of diverticulitis. Royal Messer MD Cardiovascular: Regular Lungs: Clear Abdomen: Other (soft; non disteded; samantha tube in place; grimaces with palpation in RUQ ) Extremities: Other (moderate generalized edema ) A/P Assessment and Plan 71 year old female with cholelithiasis; cholecystitis; VDRF -Continue cholecystostomy tube to gravity -Continue antibiotics -Vent/pressor per [facility] -Repeat CT abd/pelvis due to increased WBC---no acute process -IVF -PCP records obtained; patient appears more chronically ill than originally thought -Surgery continues to not be a good option at this point -Discussed with Dr. Mendieta Attending Statement The exam, history, and the medical decision-making described in the above note were completed with the assistance of the mid-level provider. I reviewed and agree with the findings presented. I attest that I had a [id number] encounter with the patient on the same day, and personally performed and documented my assessment and findings in the medical record. Physical Exam: Abdomen soft, mildly distended, non-tender, no rebound overall better, continue ABX/ICU care no surgical indication at this time, can consider lap samantha electively Yumiko Bee Dec 04, 2016 13:32 Roly Portillo MD Dec 07, 2016 16:55
--- NOTE | 2016-12-04 13:47 | PD.ONC.PN ---
Subjective Subjective Remarks Tmax 100.4 overnight. Patient intubated, sedated Objective Data Date Time Temp Pulse Resp B/P (MAP) Pulse Ox O2 Delivery O2 Flow Rate FiO2 12/04/16 12:00 98.2 75 24 88/56 (67) 100 102/57 (72) 12/04/16 11:26 79 93/53 12/04/16 10:06 100 50 12/04/16 09:29 100 12/04/16 07:49 100 50 12/04/16 07:00 85 101/52 12/04/16 07:00 85 101/52 12/04/16 07:00 85 101/52 12/04/16 06:00 88 12/04/16 04:30 90 99/48 12/04/16 04:29 90 97/46 12/04/16 04:00 99.1 90 24 94/59 (71) 100 97/48 (64) 12/04/16 04:00 90 12/04/16 03:21 100 50 12/04/16 02:00 87 12/04/16 00:00 94 24 96/60 (72) 100 102/51 (68) 12/04/16 00:00 50 12/04/16 00:00 94 12/04/16 00:00 94 101/50 12/03/16 23:05 100 50 12/03/16 22:00 88 12/03/16 22:00 88 24 109/67 (81) 100 120/64 (82) 12/03/16 21:09 99 Ventilator 12/03/16 20:00 50 12/03/16 20:00 96 12/03/16 20:00 100.4 96 24 101/61 (74) 99 113/61 (78) 12/03/16 19:33 99 50 12/03/16 18:38 96 50 12/03/16 18:00 98 12/03/16 17:53 97 90/52 12/03/16 16:52 97 97/55 12/03/16 16:16 94 50 12/03/16 16:00 98.1 93 24 108/60 (76) 96 120/62 (81) 12/03/16 16:00 50 12/03/16 16:00 93 12/03/16 14:05 100 100 12/03/16 14:00 98 12/04/16 12/04/16 12/04/16 07:00 15:00 23:00 Intake Total 1960 ml 120 ml Output Total 290 ml Balance 1670 ml 120 ml Result Diagram: 12/04/16 0415 12/04/16 0415 Laboratory Results Laboratory Tests Test 12/03/16 17:20 12/03/16 17:35 12/03/16 19:10 12/04/16 04:15 Tumor Marker Alpha Fetoprotein 2.0 NG/ML Hepatitis A IgM Antibody NEGATIVE Hepatitis B Surface Antigen NEGATIVE Hepatitis B Core IgM Antibody NEGATIVE Hepatitis C Antibody NEGATIVE Blood Gas Puncture Site ART LINE Blood Gas Patient Temperature 98.6 Blood Gas HCO3 14 mmol/L Blood Gas Base Excess -10.4 mmol/L Blood Gas Oxygen Saturation 94 % Arterial Blood pH 7.34 Arterial Blood Partial Pressure CO2 27 mmHg Arterial Blood Partial Pressure O2 87 mmHg Arterial Blood Oxygen Content 13.6 Vol % Arterial Blood Carboxyhemoglobin 1.4 % Arterial Blood Methemoglobin 1.0 % Blood Gas Hemoglobin 10.1 G/DL Oxygen Delivery Device VENTILATOR Blood Gas Ventilator Setting PRVC/AC Blood Gas Inspired Oxygen 50 % Potassium Level 3.0 MEQ/L 4.2 MEQ/L White Blood Count 14.9 TH/MM3 Red Blood Count 3.46 MIL/MM3 Hemoglobin 10.6 GM/DL Hematocrit 31.2 % Mean Corpuscular Volume 90.2 FL Mean Corpuscular Hemoglobin 30.7 PG Mean Corpuscular Hemoglobin Concent 34.0 % Red Cell Distribution Width 15.5 % Platelet Count 51 TH/MM3 Mean Platelet Volume 10.7 FL Neutrophils (%) (Auto) 68.9 % Lymphocytes (%) (Auto) 9.3 % Monocytes (%) (Auto) 4.0 % Eosinophils (%) (Auto) 17.6 % Basophils (%) (Auto) 0.2 % Neutrophils # (Auto) 10.3 TH/MM3 Lymphocytes # (Auto) 1.4 TH/MM3 Monocytes # (Auto) 0.6 TH/MM3 Eosinophils # (Auto) 2.6 TH/MM3 Basophils # (Auto) 0.0 TH/MM3 CBC Comment AUTO DIFF Differential Total Cells Counted 100 Neutrophils % (Manual) 53 % Band Neutrophils % 8 % Lymphocytes % 33 % Monocytes % 6 % Neutrophils # (Manual) 9.1 TH/MM3 Differential Comment FINAL DIFF MANUAL Toxic Vacuolation PRESENT Dohle Bodies PRESENT Platelet Estimate LOW Platelet Morphology Comment NORMAL Josue Cells 2+ Red Cell Morphology Comment Prothrombin Time 20.4 SEC Prothromb Time International Ratio 1.8 RATIO Activated Partial Thromboplast Time 50.9 SEC Blood Urea Nitrogen 26 MG/DL Creatinine 3.41 MG/DL Random Glucose 84 MG/DL Total Protein 5.0 GM/DL Albumin 2.0 GM/DL Calcium Level 6.3 MG/DL Phosphorus Level 1.8 MG/DL Magnesium Level 1.9 MG/DL Alkaline Phosphatase 184 U/L Aspartate Amino Transf (AST/SGOT) 300 U/L Alanine Aminotransferase (ALT/SGPT) 151 U/L Total Bilirubin 4.8 MG/DL Sodium Level 149 MEQ/L Chloride Level 114 MEQ/L Carbon Dioxide Level 17.4 MEQ/L Anion Gap 18 MEQ/L Estimat Glomerular Filtration Rate 13 ML/MIN Protein Corrected Calcium 7.3 MG/DL B-Type Natriuretic Peptide GREATER THAN 5000 PG/ML Random Vancomycin Level 32.5 COMMENT Test 12/04/16 05:06 12/04/16 12:00 Blood Gas Puncture Site ART LINE ART LINE Blood Gas Patient Temperature 98.6 98.6 Blood Gas HCO3 15 mmol/L 17 mmol/L Blood Gas Base Excess -9.4 mmol/L -6.0 mmol/L Blood Gas Oxygen Saturation 96 % 97 % Arterial Blood pH 7.35 7.44 Arterial Blood Partial Pressure CO2 29 mmHg 26 mmHg Arterial Blood Partial Pressure O2 129 mmHg 141 mmHg Arterial Blood Oxygen Content 14.7 Vol % 14.3 Vol % Arterial Blood Carboxyhemoglobin 1.2 % 1.1 % Arterial Blood Methemoglobin 1.1 % 1.2 % Blood Gas Hemoglobin 10.7 G/DL 10.3 G/DL Oxygen Delivery Device VENTILATOR VENTILATOR Blood Gas Ventilator Setting PRVC/AC SEE COMMENTS Blood Gas Inspired Oxygen 50 % 50 % Culture Results Microbiology Date/Time Source Procedure Growth Status 12/02/16 12:40 Blood Peripheral Aerobic Blood Culture - Preliminary Enterobacter Species Klebsiella Pneumoniae Escherichia Coli Resulted 12/02/16 12:40 Anaerobic Blood Culture - Preliminary Gram Negative Primitivo Resulted 12/02/16 12:35 Blood Peripheral Aerobic Blood Culture - Preliminary Gram Negative Primitivo Resulted 12/02/16 12:35 Anaerobic Blood Culture - Preliminary Gram Negative Primitivo Resulted 12/03/16 14:55 Fluid Bile Fluid Gram Stain - Final Resulted 12/03/16 14:55 Fluid Bile Fluid Body Fluid Culture Pending Resulted 12/03/16 10:15 Sputum Endotracheal Gram Stain - Final Resulted 12/03/16 10:15 Sputum Culture - Preliminary Gram Negative Primitivo Resulted 12/03/16 10:15 Nasal Washing Influenza Types A,B Antigen (MURIEL) - Final NEGATIVE FOR FLU A AND B ANTIGEN.... Complete 12/03/16 09:40 Urine Catheterized Urine Streptococcus pneumoniae Antigen (M - Final PRESUMPTIVE NEGATIVE FOR STREPTOCOCCU... Complete 12/03/16 09:40 Urine Catheterized Urine Legionella Antigen - Final PRESUMPTIVE NEGATIVE FOR LEGIONELLA P... Complete 12/02/16 12:40 Urine Catheterized Urine Urine Culture - Final Escherichia Coli Complete Imaging Studies Last 24 hours Impressions Chest X-Ray 12/04/16599 Signed Impressions: Service Date/Time: Sunday, December 04, 2016 04:25 - CONCLUSION: 1. The cardiac silhouette is enlarged in transverse diameter. 2. Bilateral lower lobe atelectasis versus pneumonia. There has been no significant change when compared to the prior exam. Royal Messer MD Abdomen/Pelvis CT 12/04/16599 Signed Impressions: Service Date/Time: Sunday, December 04, 2016 09:35 - CONCLUSION: 1. Interval placement of a cholecystostomy tube. 2. Bibasilar consolidation likely related to atelectasis. This is unchanged. 3. Tip of the NG tube in the hiatal hernia. 4. Small volume ascites. 5. No acute abnormality observed. Nain Sharma Jr., MD Administered Medications Medications (Trade) Dose Ordered Sig/Dhruv Route PRN Reason Start Time Stop Time Status Last Admin Dose Admin Sodium Chloride (NS Flush) 2 ml BID IV FLUSH 12/02/16 21:00 12/04/16 08:42 Famotidine (Pepcid Inj) 20 mg DAILY IV PUSH 12/02/16 21:00 12/04/16 08:41 Heparin Sodium (Porcine) (Heparin Inj) 5,000 units Q12H SQ 12/02/16 17:00 Future Hold 12/04/16 04:28 Miscellaneous Information 1 [id number] XX 12/02/16 16:15 12/02/16 16:15 Chlorhexidine Gluconate (Chlorhexidine 2% Cloth) 3 pack Taper DAILY@04 TOP 12/03/16 04:00 11/29/17 03:59 12/04/16 04:00 Senna/Docusate Sodium (Keely-Colace) 1 tab BID PO 12/02/16 21:00 12/04/16 10:55 Lorazepam (Ativan Inj) 1 mg Q4H PRN IV PUSH ANXIETY 12/02/16 16:45 12/02/16 20:23 Piperacillin Sod/ Tazobactam Sod 50 ml @ 200 mls/hr Q6H IV 12/02/16 22:00 12/04/16 10:55 Chlorhexidine Gluconate (Peridex 0.12% Liq) 15 ml BID@08,20 MT 12/03/16 08:00 12/03/16 19:42 Fentanyl Citrate 250 ml @ 5 mls/hr TITRATE PRN IV SEDATION 12/02/16 22:15 12/04/16 01:46 Norepinephrine Bitartrate 4 mg/ Sodium Chloride 250 ml @ 7.5 mls/hr TITRATE PRN IV Blood pressure management 12/02/16 22:15 12/04/16 11:26 Vasopressin 40 units/Dextrose 100 ml @ 1.5 mls/hr TITRATE PRN IV Blood Pressure Management 12/02/16 22:45 12/04/16 04:30 Sodium Chloride (NS Flush) DAILY IV FLUSH 12/03/16 09:00 12/04/16 08:42 Hydrocortisone Sodium Succinate (SoluCORTEF INJ) 100 mg Q8H IV PUSH 12/03/16 09:00 12/04/16 08:41 Albuterol/ Ipratropium (Duoneb Neb) 1 ampule Q6HR NEB NEB 12/03/16 10:00 12/04/16 10:05 Phenylephrine HCl 80 mg/Dextrose 500 ml @ 15 mls/hr TITRATE PRN IV Blood pressure Management 12/03/16 17:15 12/04/16 04:29 Metronidazole 100 ml @ 100 mls/hr Q8H IV 12/04/16 02:00 12/04/16 10:56 Sodium Bicarbonate 150 meq/Dextrose 1,000 ml @ 150 mls/hr Q6H40M IV 12/04/16 08:30 12/04/16 11:30 Multivitamins 10 ml/Folic Acid 1 mg/Sodium Chloride 510.2 ml @ 125 mls/hr Q24H IV 12/04/16 10:00 12/09/16 09:59 12/04/16 10:56 Thiamine HCl 100 mg/Sodium Chloride 101 ml @ 100 mls/hr Q24H IV 12/04/16 11:00 12/07/16 10:59 12/04/16 10:55 Objective Remarks GENERAL: Intubated, sedated, elderly female SKIN: Warm and dry. HEAD: Normocephalic. EYES: No injection or drainage. NECK: Supple, trachea midline. CARDIOVASCULAR: +S1/S2 RESPIRATORY: anterior dennis clear. GASTROINTESTINAL: Abdomen soft, mild distension. EXTREMITIES: No cyanosis NEUROLOGICAL: intubated, sedated. Assessment/Plan Problem List: (1) Pancytopenia ICD Codes: D61.818 - Other pancytopenia Plan: 12/04: WBC elevated. platelets continuing to fall. will repeat coags today. --due to bone marrow suppression from sepsis. --expect her pancytopenia to get worse in the next several days if sepsis is not under control. --monitor her CBC closely and provide blood product support as needed. (2) Sepsis ICD Codes: A41.9 - Sepsis, unspecified organism Status: Acute Assessment 71y/o female admitted with dyspnea, fever and vomiting. Hematology consulted for pancytopenia h/o Coronary artery disease. Status post myocardial infarction. hypertension. Hypercholesterolemia. Attending Statement sedated , intubated Gram Negative sepsis. septic shock plat low due to sepsis. leucocytosis from sepsis. Problem Qualifiers (1) Sepsis: Qualified Codes: A41.9 - Sepsis, unspecified organism Tatum Proctor Dec 04, 2016 13:47 Lana Justice MD Dec 04, 2016 20:05
--- NOTE | 2016-12-04 14:09 | ECHRPT ---
Indication: Cardiomyopathy CONCLUSIONS The left ventricular systolic function is low normal with an estimated ejection fraction of 50% Normal left ventricular size. Wall thickness is normal. No regional wall motion abnormalities are present. Diffuse calcification of the aortic valve. There is mild tricuspid valve regurgitation. The estimated pulmonary arterial pressure is 36 mmHg. A small left sided pleural effusion is noted. BP: 122 / 63 HR: 93 Rhythm: Sinus Technical Quality:Technically difficult study FINDINGS LEFT VENTRICLE The left ventricular systolic function is low normal with an estimated ejection fraction is no great er than 50%.. Normal left ventricular size. Wall thickness is normal. No regional wall motion abnormalities are present. RIGHT VENTRICLE Normal right ventricular size and systolic function. LEFT ATRIUM The left atrial size is normal. RIGHT ATRIUM The right atrial size is normal. ATRIAL SEPTUM Normal atrial septal thickness without atrial level shunting by limited color doppler interrogation. AORTA The aortic root and proximal ascending aorta are normal in size on limited imaging. MITRAL VALVE Structurally normal mitral valve. No mitral valve stenosis or regurgitation. AORTIC VALVE Diffuse calcification of the aortic valve. There is no stenosis. Trileaflet aortic valve. TRICUSPID VALVE There is mild tricuspid valve regurgitation. The estimated pulmonary arterial pressure is 36 mmHg. PULMONARY VALVE The pulmonary valve is not well visualized. VESSELS The inferior vena cava is normal in size. PERICARDIUM A small left sided pleural effusion is noted. Darío Trujillo MD (Electronically Signed) Final Date:04 December 2016 14:08
--- NOTE | 2016-12-04 16:34 | PD.ID.CON ---
History of Present Illness Service ID Consult Requested By Dr Mendieta Reason for Consult gram negative sepsis Primary Care Physician No Primary Care Physician Diagnoses: History of Present Illness 71 yo female , no prior h/o gallstones, per was not feeling well x 2-3 weeks + some vaque pains Admitted 2 days ago with severe RUQ pain, nausea, vomiting, fever at home up to 104 US showed Cholelithiasis with wall thickening and trace pericholecystic fluid. SHe rapidly deterirated i ER and was tansferred with resp distress to ICU Pt was itubated, place on vent Pressors started SHe was diagnosed with acute calulous cjholecystitis and cholecystostomy was placed Blood clx growing multiple GNBs (e.coli, Kleb spp, Enterobacter) Bile culture also with >= 3 enteric GNBs E.coli in the urine as well Pt remains cruticaly ill, anuric, on vent and still on pressors, though weaned down on pressors o ETT secretions, but sputum is growing GNB as well Review of Systems ROS Limitations: Clinical Condition, Intubated, Unresponsive (sedated) Past Family Social History Allergies: Coded Allergies: No Known Allergies (Unverified , 12/02/16) Past Medical History scoliosis CAD Past Surgical History C spine sx R knee arthroplasty Active Ordered Medications Medications where reviewed in EMR Antibiotics Include: micafungin zosyn Family History reviewd Non contributory Social History + ETOH 4 shots /daily last drink 3 weeks ago + med MJ remote tobacco: quit 20 yrs ago Physical Exam Vital Signs Vital Signs Date Time Temp Pulse Resp B/P (MAP) Pulse Ox O2 Delivery O2 Flow Rate FiO2 12/04/16 15:02 100 50 12/04/16 12:00 98.2 75 24 88/56 (67) 100 102/57 (72) 12/04/16 11:26 79 93/53 12/04/16 10:06 100 50 12/04/16 09:29 100 12/04/16 08:00 50 12/04/16 07:49 100 50 12/04/16 07:00 85 101/52 12/04/16 07:00 85 101/52 12/04/16 07:00 85 101/52 12/04/16 06:00 88 12/04/16 04:30 90 99/48 12/04/16 04:29 90 97/46 12/04/16 04:00 99.1 90 24 94/59 (71) 100 97/48 (64) 12/04/16 04:00 90 12/04/16 03:21 100 50 12/04/16 02:00 87 12/04/16 00:00 94 24 96/60 (72) 100 102/51 (68) 12/04/16 00:00 50 12/04/16 00:00 94 12/04/16 00:00 94 101/50 12/03/16 23:05 100 50 12/03/16 22:00 88 12/03/16 22:00 88 24 109/67 (81) 100 120/64 (82) 12/03/16 21:09 99 Ventilator 12/03/16 20:00 50 12/03/16 20:00 96 12/03/16 20:00 100.4 96 24 101/61 (74) 99 113/61 (78) 12/03/16 19:33 99 50 12/03/16 18:38 96 50 12/03/16 18:00 98 12/03/16 17:53 97 90/52 12/03/16 16:52 97 97/55 Physical Exam CONSTITUTIONAL/GENERAL: This is an adequately nourished patient, in no apparent distress. TUBES/LINES/DRAINS: biliary drain in place with cloudy dark brown bile SKIN: No jaundice, rashes, or lesions. Ecchymoses on upper extremities. No wounds seen anteriorly. Skin temperature appropriate. Not diaphoretic. HEAD: Atraumatic. Normocephalic. EYES: Pupils equal and round and reactive. + scleral icterus. No injection or drainage. Fundi not examined. ENT: Hearing not assessed. Nose without bleeding or purulent drainage. Oraly intubated NECK: Trachea midline. Supple, nontender. CARDIOVASCULAR: Regular rate and rhythm without murmurs, gallops, or rubs. No JVD. Peripheral pulses symmetric. Perfusion diminished on b/l toes, on fingersd refill is brisk RESPIRATORY/CHEST: Symmetric, unlabored respirations. Clear to auscultation. Breath sounds equal bilaterally. No wheezes, rales, or rhonchi. GASTROINTESTINAL: Abdomen soft, no reaction to papation + distended. No hepato- splenomegaly, or palpable masses. Drain in place No guarding. Bowel sounds very hypoactive GENITOURINARY: Without palpable bladder distension. Peterson catheter in place with small amount of cloudy urine MUSCULOSKELETAL: Extremities without clubbing, cyanosis, + 1-2 edema. No joint tenderness or effusion noted. No calf tenderness. No mottling or clubbing. NEUROLOGICAL: Sedated; follows commands of sedation PSYCHIATRIC: unabe to assess Laboratory Laboratory Tests Test 12/03/16 17:20 12/03/16 17:35 12/03/16 19:10 12/04/16 04:15 Tumor Marker Alpha Fetoprotein 2.0 Hepatitis A IgM Antibody NEGATIVE Hepatitis B Surface Antigen NEGATIVE Hepatitis B Core IgM Antibody NEGATIVE Hepatitis C Antibody NEGATIVE Blood Gas Puncture Site ART LINE Blood Gas Patient Temperature 98.6 Blood Gas HCO3 14 Blood Gas Base Excess -10.4 Blood Gas Oxygen Saturation 94 Arterial Blood pH 7.34 Arterial Blood Partial Pressure CO2 27 Arterial Blood Partial Pressure O2 87 Arterial Blood Oxygen Content 13.6 Arterial Blood Carboxyhemoglobin 1.4 Arterial Blood Methemoglobin 1.0 Blood Gas Hemoglobin 10.1 Oxygen Delivery Device VENTILATOR Blood Gas Ventilator Setting PRVC/AC Blood Gas Inspired Oxygen 50 Potassium Level 3.0 4.2 White Blood Count 14.9 Red Blood Count 3.46 Hemoglobin 10.6 Hematocrit 31.2 Mean Corpuscular Volume 90.2 Mean Corpuscular Hemoglobin 30.7 Mean Corpuscular Hemoglobin Concent 34.0 Red Cell Distribution Width 15.5 Platelet Count 51 Mean Platelet Volume 10.7 Neutrophils (%) (Auto) 68.9 Lymphocytes (%) (Auto) 9.3 Monocytes (%) (Auto) 4.0 Eosinophils (%) (Auto) 17.6 Basophils (%) (Auto) 0.2 Neutrophils # (Auto) 10.3 Lymphocytes # (Auto) 1.4 Monocytes # (Auto) 0.6 Eosinophils # (Auto) 2.6 Basophils # (Auto) 0.0 CBC Comment AUTO DIFF Differential Total Cells Counted 100 Neutrophils % (Manual) 53 Band Neutrophils % 8 Lymphocytes % 33 Monocytes % 6 Neutrophils # (Manual) 9.1 Differential Comment FINAL DIFF MANUAL Toxic Vacuolation PRESENT Dohle Bodies PRESENT Platelet Estimate LOW Platelet Morphology Comment NORMAL Josue Cells 2+ Red Cell Morphology Comment Prothrombin Time 20.4 Prothromb Time International Ratio 1.8 Activated Partial Thromboplast Time 50.9 Blood Urea Nitrogen 26 Creatinine 3.41 Random Glucose 84 Total Protein 5.0 Albumin 2.0 Calcium Level 6.3 Phosphorus Level 1.8 Magnesium Level 1.9 Alkaline Phosphatase 184 Aspartate Amino Transf (AST/SGOT) 300 Alanine Aminotransferase (ALT/SGPT) 151 Total Bilirubin 4.8 Sodium Level 149 Chloride Level 114 Carbon Dioxide Level 17.4 Anion Gap 18 Estimat Glomerular Filtration Rate 13 Protein Corrected Calcium 7.3 B-Type Natriuretic Peptide GREATER THAN 5000 Random Vancomycin Level 32.5 Test 12/04/16 05:06 12/04/16 12:00 Blood Gas Puncture Site ART LINE ART LINE Blood Gas Patient Temperature 98.6 98.6 Blood Gas HCO3 15 17 Blood Gas Base Excess -9.4 -6.0 Blood Gas Oxygen Saturation 96 97 Arterial Blood pH 7.35 7.44 Arterial Blood Partial Pressure CO2 29 26 Arterial Blood Partial Pressure O2 129 141 Arterial Blood Oxygen Content 14.7 14.3 Arterial Blood Carboxyhemoglobin 1.2 1.1 Arterial Blood Methemoglobin 1.1 1.2 Blood Gas Hemoglobin 10.7 10.3 Oxygen Delivery Device VENTILATOR VENTILATOR Blood Gas Ventilator Setting PRVC/AC SEE COMMENTS Blood Gas Inspired Oxygen 50 50 Date/Time Source Procedure Growth Status 12/02/16 12:40 Blood Peripheral Aerobic Blood Culture - Preliminary Enterobacter Species Klebsiella Pneumoniae Escherichia Coli Resulted 12/02/16 12:40 Anaerobic Blood Culture - Preliminary Gram Negative Primitivo Resulted 12/03/16 14:55 Fluid Bile Fluid Gram Stain - Final Resulted 12/03/16 14:55 Fluid Bile Fluid Body Fluid Culture - Preliminary Resulted 12/03/16 10:15 Sputum Endotracheal Gram Stain - Final Resulted 12/03/16 10:15 Sputum Culture - Preliminary Gram Negative Primitivo Resulted 12/03/16 09:40 Urine Catheterized Urine Streptococcus pneumoniae Antigen (M - Final PRESUMPTIVE NEGATIVE FOR STREPTOCOCCU... Complete Result Diagram: 12/04/165 12/04/165 Imaging Last Impressions Chest X-Ray 12/04/16599 Signed Impressions: Service Date/Time: Sunday, December 04, 2016 04:25 - CONCLUSION: 1. The cardiac silhouette is enlarged in transverse diameter. 2. Bilateral lower lobe atelectasis versus pneumonia. There has been no significant change when compared to the prior exam. Royal Messer MD Abdomen/Pelvis CT 12/04/16599 Signed Impressions: Service Date/Time: Sunday, December 04, 2016 09:35 - CONCLUSION: 1. Interval placement of a cholecystostomy tube. 2. Bibasilar consolidation likely related to atelectasis. This is unchanged. 3. Tip of the NG tube in the hiatal hernia. 4. Small volume ascites. 5. No acute abnormality observed. Nain Sharma Jr., MD Percutaneous Cholangiogram 12/03/16 0000 Signed Impressions: Service Date/Time: Saturday, December 03, 2016 14:31 - CONCLUSION: Uncomplicated percutaneous cholecystostomy as above. Nain Sharma Jr., MD Liver Ultrasound 12/02/16 0000 Signed Impressions: Service Date/Time: Friday, December 02, 2016 19:12 - CONCLUSION: 1. Cholelithiasis with wall thickening and trace pericholecystic fluid. 2. No evidence of biliary duct distention. 3. No other significant abnormality. Jak Hughes MD Assessment and Plan Assessment and Plan Billiary sepsis Multi-organ failure: acute VDRF ARF Hypotensiotn, on pressors Grm negative sepsis Acute calculous choecystitis sp cjoholecystostomy tube placement ? E.coli UTI ? PNA vs ARDS - growing GNB in sputum Critical, unstable No resistance risks (no abx in the last month, presents from communicty) cont zosyn cont micafungin if no juan in bile or blood clx will dc seng adjuste fever abx per clx resusts Discussed Condition With RN @ b/s Jina Ramos MD Dec 04, 2016 16:34
[2016-12-04] MEDS: MICAFUNGIN INJ 100 MG in SODIUM CHLORIDE 0.9% INJ 100 ML IV SCH (17:17)
--- NOTE | 2016-12-04 17:44 | OTSOAPIP ---
SPOKE WITH NURSE "KEYANNA" WHO REPORTS PATIENT CONTINUES TO BE MEDICALLY UNSTABLE FOR EVALUATION. DUE TO PATIENT'S CHANGE IN STATUS FROM INITIAL ORDER REQUEST, PATIENT WILL REQUIRE RESTART ORDERS FROM PHYSICIAN ONCE MEDICALLY STABLE. Therapist: ELADIO WHATLEY, OTR/L Signature on file
[2016-12-04 23:05] LABS: HEMATOCRIT 30.3 % (35.0-46.0); HEMOGLOBIN 10.4 GM/DL (11.6-15.3); MEAN CELL VOLUME 88.4 FL (80.0-100.0); MEAN CORPUSCULAR HEMOGLOBIN 30.3 PG (27.0-34.0); MEAN CORPUSCULAR HGB CONC 34.2 % (32.0-36.0); MEAN PLATELET VOLUME 10.7 FL (7.0-11.0); PLATELET COUNT 57 TH/MM3 (150-450); RED BLOOD COUNT 3.42 MIL/MM3 (4.00-5.30); RED CELL DISTRIBUTION WIDTH 15.3 % (11.6-17.2); WHITE BLOOD COUNT 16.2 TH/MM3 (4.0-11.0)
[2016-12-05] VITALS (28 sets, daily range): BP systolic 78–135; BP diastolic 51–77; PULSE 72–87; RESP 24; TEMP 97.6–98.1; O2SAT 93–100
[2016-12-05] MEDS: HYDROCORTISONE SOD SUCCINATE 100 MG VIAL IV PUSH SCH ×3 (00:15→18:49)
[2016-12-05] MEDS: metroNIDAZOLE 500 MG INJ 100 ML IV SCH ×3 (00:15→18:49)
[2016-12-05 00:52] LABS: CREATININE, RANDOM URINE 54.6 MG/DL
[2016-12-05] MEDS: SODIUM BICARBONATE 8.4% INJ 150 MEQ in DEXTROSE 5% IN WATE 1000ML INJ 850 ML IV SCH ×4 (01:09→11:10)
[2016-12-05] MEDS: PIPERACIL-TAZO 3.375 GM PREMIX 50 ML IV SCH ×2 (03:17→10:23)
[2016-12-05] MEDS: RESP: ALBUTEROL 2.5 MG/IPRATROPIUM 0.5 MG NEB (SCH) NEB ×4 (03:26→20:51)
[2016-12-05] MEDS: CHLORHEXIDINE GLUCONATE 2 % 1 PACK (2 CLOTHS) TOP SCH (04:00)
[2016-12-05 04:07] LABS: HEMATOCRIT 28.7 % (35.0-46.0); HEMOGLOBIN 9.9 GM/DL (11.6-15.3); MEAN CELL VOLUME 88.7 FL (80.0-100.0); MEAN CORPUSCULAR HEMOGLOBIN 30.7 PG (27.0-34.0); MEAN CORPUSCULAR HGB CONC 34.6 % (32.0-36.0); MEAN PLATELET VOLUME 10.5 FL (7.0-11.0); PLATELET COUNT 52 TH/MM3 (150-450); RED BLOOD COUNT 3.23 MIL/MM3 (4.00-5.30); RED CELL DISTRIBUTION WIDTH 15.3 % (11.6-17.2); WHITE BLOOD COUNT 16.3 TH/MM3 (4.0-11.0)
[2016-12-05 04:33] LABS: ALBUMIN 1.6 GM/DL (3.4-5.0); BICARBONATE 28.7 MEQ/L (21.0-32.0); CALCIUM 5.4 MG/DL (8.5-10.1); CREATININE 3.79 MG/DL (0.50-1.00); MAGNESIUM 1.7 MG/DL (1.5-2.5); PHOSPHORUS 1.3 MG/DL (2.5-4.9); TOTAL BILIRUBIN ADULT 4.2 MG/DL (0.2-1.0); TOTAL PROTEIN 4.8 GM/DL (6.4-8.2)
[2016-12-05] MEDS: NOREPINEPHRINE INJ 4 MG in SODIUM CHLOR 0.9% 250 ML INJ 246 ML IV PRN (04:37)
[2016-12-05 04:43] LABS: CALCIUM-PROTEIN CORRECTED 6.4 MG/DL (8.5-10.1)
[2016-12-05] MEDS ORDERED: POTASSIUM PHOSPHATE INJ 15 MMOL in SODIUM CHLORIDE 0.9% INJ 150 ML IV ONE (05:15)
[2016-12-05] MEDS ORDERED: POTASSIUM CHLOR 40 MEQ PREMIX 100 ML IV ONE (05:15)
[2016-12-05] MEDS ORDERED: CALCIUM GLUCONATE INJ 2 GM in DEXTROSE 5% IN WATER 100ML INJ 100 ML IV ONE ×4 (05:15→15:00)
--- NOTE | 2016-12-05 05:22 | RADRPT ---
EXAM DATE/TIME: 12/05/2016 04:32 [facility] COMPARISON: CHEST SINGLE AP, December 04, 2016, 4:25. INDICATIONS : Shortness of breath. MEDICAL HISTORY : Cardiovascular disease. Hypertension Hypercholesterolemia. Myocardial infarction SURGICAL HISTORY : Cholecystostomy ENCOUNTER: Subsequent ACUITY: 4 - 6 days PAIN SCORE: Non-responsive. LOCATION: Bilateral chest FINDINGS: The cardiac silhouette is enlarged in transverse diameter. There are findings of congestive heart martine lure with interstitial and alveolar opacity bilaterally. There is left lower lobe atelectasis versus pneumonia. Small bilateral pleural effusions are identified. CONCLUSION: 1. Cardiomegaly and findings of congestive heart failure. There has been no significant change when c ompared to the prior exam. Royal Messer MD on December 05, 2016 at 5:21 Board Certified Radiologist. This report was verified electronically.
[2016-12-05 05:35] LABS: BANDS 7 % (0-6); LYMPHOCYTES 10 % (9-44); METAMYELOCYTES 2 % (0-1); MONOCYTES 11 % (0-8); NEUTROPHIL # MANUAL DIFF 12.9 TH/MM3 (1.8-7.7); POLYS (SEG NEUTROPHILS) 70 % (16-70)
[2016-12-05] MEDS: INSULIN NovoLIN REGULAR SUPPLEMENTAL SCALE SQ SCH ×4 (08:00→21:00)
[2016-12-05] MEDS: DOCUSATE SODIUM 50 MG/SENNA 8.6 MG TAB PO SCH ×2 (08:20→21:00)
[2016-12-05] MEDS: FAMOTIDINE 20 MG/2 ML VIAL IV PUSH SCH (08:21)
[2016-12-05] MEDS: CHLORHEXIDINE 0.12% (ORAL KIT) 15 ML CUP MT SCH ×2 (08:22→20:00)
[2016-12-05] MEDS: SODIUM CHLORIDE 0.9% FLUSH 10 ML FLUSH IV FLUSH PRN ×2 (08:24→08:25)
[2016-12-05] MEDS: PHENYLEPHRINE INJ 80 MG in DEXTROSE 5% IN WATE 500 ML INJ 492 ML IV PRN ×2 (08:24)
[2016-12-05] MEDS: SODIUM CHLORIDE 0.9% FLUSH 10 ML FLUSH IV FLUSH SCH ×3 (08:25→21:10)
[2016-12-05] MEDS: THIAMINE INJ 100 MG in SODIUM CHLORIDE 0.9% INJ 100 ML IV SCH (10:23)
[2016-12-05 11:02] LABS: ANA SCREEN NEG (NEG)
--- NOTE | 2016-12-05 11:40 | HHI.IDPN ---
Subjective Subjective Remarks clinically better afebrile weaning of pressors No UOP On vent Antibiotics vanco zosyn micafungin flagyl Allergies: Coded Allergies: No Known Allergies (Unverified , 12/02/16) Objective . Vital Signs Date Time Temp Pulse Resp B/P (MAP) Pulse Ox O2 Delivery O2 Flow Rate FiO2 12/05/16 10:00 80 24 78/52 (61) 100 88/57 (67) 12/05/16 10:00 80 12/05/16 09:00 78 24 104/68 (80) 100 121/73 (89) 12/05/16 09:00 78 12/05/16 08:24 79 116/70 12/05/16 08:00 87 103/71 (82) 127/77 (94) 12/05/16 08:00 87 12/05/16 08:00 97.6 87 24 103/71 (82) 100 127/77 (94) 12/05/16 08:00 40 12/05/16 07:30 100 40 12/05/16 07:00 77 12/05/16 07:00 77 24 97/63 (74) 100 113/68 (83) 12/05/16 06:36 76 104/62 12/05/16 06:29 73 141/80 12/05/16 06:29 73 141/80 12/05/16 06:00 75 12/05/16 04:37 76 123/71 12/05/16 04:00 75 12/05/16 04:00 50 12/05/16 04:00 97.9 75 24 101/60 (74) 100 110/65 (80) 12/05/16 04:00 75 101/60 (74) 110/65 (80) 12/05/16 03:57 75 101/60 12/05/16 03:45 75 128/72 12/05/16 03:29 100 50 12/05/16 02:00 75 12/05/16 02:00 75 137/77 12/05/16 00:19 100 50 12/05/16 00:00 50 12/05/16 00:00 74 12/05/16 00:00 74 118/73 (88) 135/73 (93) 12/05/16 00:00 74 135/73 12/05/16 00:00 97.6 74 24 118/73 (88) 100 135/73 (93) 12/04/16 22:00 77 12/04/16 20:41 100 Ventilator 12/04/16 20:37 100 50 12/04/16 20:00 97.7 96 24 73/49 (57) 100 80/51 (61) 12/04/16 20:00 96 12/04/16 20:00 50 12/04/16 18:00 86 12/04/16 16:19 90 108/59 12/04/16 16:00 98.1 87 24 88/56 (67) 100 102/57 (72) 12/04/16 16:00 50 12/04/16 16:00 87 12/04/16 15:02 100 50 12/04/16 14:00 72 12/04/16 12:00 75 12/04/16 12:00 98.2 75 24 88/56 (67) 100 102/57 (72) 12/04/16 12:00 50 12/04/16 11:26 79 93/53 12/05/16 12/05/16 12/06/16 15:00 23:00 07:00 Intake Total 250 ml Balance 250 ml Intake IV Total 250 ml . Laboratory Tests Test 12/04/16 04:15 12/04/16 21:48 12/05/16 03:48 White Blood Count 14.9 TH/MM3 16.2 TH/MM3 16.3 TH/MM3 Red Blood Count 3.46 MIL/MM3 3.42 MIL/MM3 3.23 MIL/MM3 Hemoglobin 10.6 GM/DL 10.4 GM/DL 9.9 GM/DL Hematocrit 31.2 % 30.3 % 28.7 % Mean Corpuscular Volume 90.2 FL 88.4 FL 88.7 FL Mean Corpuscular Hemoglobin 30.7 PG 30.3 PG 30.7 PG Mean Corpuscular Hemoglobin Concent 34.0 % 34.2 % 34.6 % Red Cell Distribution Width 15.5 % 15.3 % 15.3 % Platelet Count 51 TH/MM3 57 TH/MM3 52 TH/MM3 Mean Platelet Volume 10.7 FL 10.7 FL 10.5 FL Neutrophils (%) (Auto) 68.9 % Lymphocytes (%) (Auto) 9.3 % Monocytes (%) (Auto) 4.0 % Eosinophils (%) (Auto) 17.6 % Basophils (%) (Auto) 0.2 % Neutrophils # (Auto) 10.3 TH/MM3 Lymphocytes # (Auto) 1.4 TH/MM3 Monocytes # (Auto) 0.6 TH/MM3 Eosinophils # (Auto) 2.6 TH/MM3 Basophils # (Auto) 0.0 TH/MM3 CBC Comment AUTO DIFF AUTO DIFF Differential Total Cells Counted 100 100 Neutrophils % (Manual) 53 % 70 % Band Neutrophils % 8 % 7 % Lymphocytes % 33 % 10 % Monocytes % 6 % 11 % Neutrophils # (Manual) 9.1 TH/MM3 12.9 TH/MM3 Differential Comment FINAL DIFF MANUAL FINAL DIFF MANUAL Toxic Vacuolation PRESENT Dohle Bodies PRESENT Platelet Estimate LOW LOW Platelet Morphology Comment NORMAL NORMAL Josue Cells 2+ Red Cell Morphology Comment Metamyelocytes 2 % Laboratory Tests Test 12/03/16 13:33 12/03/16 17:20 12/03/16 19:10 12/04/16 04:15 Blood Urea Nitrogen 24 MG/DL 26 MG/DL Creatinine 3.07 MG/DL 3.41 MG/DL Random Glucose 120 MG/DL 84 MG/DL Total Protein 5.4 GM/DL 5.0 GM/DL Calcium Level 6.9 MG/DL 6.3 MG/DL Sodium Level 146 MEQ/L 149 MEQ/L Potassium Level 2.7 MEQ/L 3.0 MEQ/L 4.2 MEQ/L Chloride Level 112 MEQ/L 114 MEQ/L Carbon Dioxide Level 17.9 MEQ/L 17.4 MEQ/L Anion Gap 16 MEQ/L 18 MEQ/L Estimat Glomerular Filtration Rate 15 ML/MIN 13 ML/MIN Protein Corrected Calcium 7.8 MG/DL 7.3 MG/DL Iron Level 6 MCG/DL Total Iron Binding Capacity 221 MCG/DL Percent Iron Saturation 2.7 % Ferritin 306 NG/ML Tumor Marker Alpha Fetoprotein 2.0 NG/ML Albumin 2.0 GM/DL Phosphorus Level 1.8 MG/DL Magnesium Level 1.9 MG/DL Alkaline Phosphatase 184 U/L Aspartate Amino Transf (AST/SGOT) 300 U/L Alanine Aminotransferase (ALT/SGPT) 151 U/L Total Bilirubin 4.8 MG/DL B-Type Natriuretic Peptide GREATER THAN 5000 PG/ML Test 12/05/16 03:48 Blood Urea Nitrogen 36 MG/DL Creatinine 3.79 MG/DL Random Glucose 208 MG/DL Total Protein 4.8 GM/DL Albumin 1.6 GM/DL Calcium Level 5.4 MG/DL Phosphorus Level 1.3 MG/DL Magnesium Level 1.7 MG/DL Alkaline Phosphatase 127 U/L Aspartate Amino Transf (AST/SGOT) 464 U/L Alanine Aminotransferase (ALT/SGPT) 206 U/L Total Bilirubin 4.2 MG/DL Sodium Level 146 MEQ/L Potassium Level 3.1 MEQ/L Chloride Level 105 MEQ/L Carbon Dioxide Level 28.7 MEQ/L Anion Gap 12 MEQ/L Estimat Glomerular Filtration Rate 12 ML/MIN Protein Corrected Calcium 6.4 MG/DL Microbiology Date/Time Source Procedure Growth Status 12/02/16 12:40 Blood Peripheral Aerobic Blood Culture - Preliminary Enterobacter Species Klebsiella Pneumoniae Escherichia Coli Resulted 12/02/16 12:40 Anaerobic Blood Culture - Preliminary Gram Negative Primitivo Resulted 12/02/16 12:35 Blood Peripheral Aerobic Blood Culture - Preliminary Gram Negative Primitivo Resulted 12/02/16 12:35 Anaerobic Blood Culture - Preliminary Gram Negative Primitivo Resulted 12/03/16 14:55 Fluid Bile Fluid Gram Stain - Final Resulted 12/03/16 14:55 Fluid Bile Fluid Body Fluid Culture - Preliminary Resulted 12/03/16 10:15 Sputum Endotracheal Gram Stain - Final Complete 12/03/16 10:15 Sputum Culture - Final Escherichia Coli Complete 12/03/16 10:15 Nasal Washing Influenza Types A,B Antigen (MURIEL) - Final NEGATIVE FOR FLU A AND B ANTIGEN.... Complete 12/03/16 09:40 Urine Catheterized Urine Streptococcus pneumoniae Antigen (M - Final PRESUMPTIVE NEGATIVE FOR STREPTOCOCCU... Complete 12/03/16 09:40 Urine Catheterized Urine Legionella Antigen - Final PRESUMPTIVE NEGATIVE FOR LEGIONELLA P... Complete 12/02/16 12:40 Urine Catheterized Urine Urine Culture - Final Escherichia Coli Complete Imaging Last Impressions Chest X-Ray 12/05/16 0600 Signed Impressions: Service Date/Time: Monday, December 05, 2016 04:32 - CONCLUSION: 1. Cardiomegaly and findings of congestive heart failure. There has been no significant change when compared to the prior exam. Royal Messer MD Abdomen/Pelvis CT 12/04/16 0600 Signed Impressions: Service Date/Time: Sunday, December 04, 2016 09:35 - CONCLUSION: 1. Interval placement of a cholecystostomy tube. 2. Bibasilar consolidation likely related to atelectasis. This is unchanged. 3. Tip of the NG tube in the hiatal hernia. 4. Small volume ascites. 5. No acute abnormality observed. Nain Sharma Jr., MD Percutaneous Cholangiogram 12/03/16 0000 Signed Impressions: Service Date/Time: Saturday, December 03, 2016 14:31 - CONCLUSION: Uncomplicated percutaneous cholecystostomy as above. Nani Sharma Jr., MD Liver Ultrasound 12/02/16 0000 Signed Impressions: Service Date/Time: Friday, December 02, 2016 19:12 - CONCLUSION: 1. Cholelithiasis with wall thickening and trace pericholecystic fluid. 2. No evidence of biliary duct distention. 3. No other significant abnormality. Jak Hughes MD Physical Exam CONSTITUTIONAL/GENERAL: This is an adequately nourished patient, in no apparent distress. TUBES/LINES/DRAINS: biliary drain in place with cloudy dark brown bile SKIN: + mild jaundice, rashes, or lesions. . Skin temperature appropriate. Not diaphoretic. HEAD: Atraumatic. Normocephalic. EYES: Pupils equal and round and reactive. + scleral icterus. No injection or drainage. Fundi not examined. ENT: Hearing not assessed. Nose without bleeding or purulent drainage. Oraly intubated NECK: Trachea midline. Supple, nontender. CARDIOVASCULAR: Regular rate and rhythm without murmurs, gallops, or rubs. No JVD. Peripheral pulses symmetric. Perfusion diminished on b/l toes, on fingersd refill is brisk RESPIRATORY/CHEST: Symmetric, unlabored respirations. Clear to auscultation. Breath sounds equal bilaterally. No wheezes, rales, or rhonchi. GASTROINTESTINAL: Abdomen soft, no reaction to papation + distended. No hepato- splenomegaly, or palpable masses. Drain in place No guarding. Bowel sounds very hypoactive GENITOURINARY: Without palpable bladder distension. Peterson catheter in place with small amount of cloudy urine MUSCULOSKELETAL: Extremities without clubbing, cyanosis, + 1-2 edema. No joint tenderness or effusion noted. No calf tenderness. No mottling or clubbing. NEUROLOGICAL: Sedated; follows commands of sedation PSYCHIATRIC: unabe to assess Assessment & Plan Remarks Billiary sepsis Multi-organ failure: acute VDRF ARF Hypotensiotn, on pressors Grm negative sepsis Acute calculous cholecystitis sp cholecystostomy tube placement ? E.coli UTI ? PNA vs ARDS - growing E.coli in sputum R to zosyn Critical, more stable No resistance risks (no abx in the last month, presents from communicty) dc zosyn start cefepime, cont flagyl cont micafungin if no juan in bile or blood clx will dc will adjust further abx per clx results Jina Ramos MD Dec 05, 2016 11:40
--- NOTE | 2016-12-05 12:12 | HHI.GIFU ---
Subjective Remarks Resting in bed in no distress. The nurse reports that she's been able to back down on the vasopressors. She has had very minimal urinary output. Patient is sedated on the ventilator. OGT clamped. Cholecystomy patent. (Danica Shipley) Objective Vitals I&O Vital Signs Date Time Temp Pulse Resp B/P (MAP) Pulse Ox O2 Delivery O2 Flow Rate FiO2 12/05/16 10:00 80 24 78/52 (61) 100 88/57 (67) 12/05/16 10:00 80 12/05/16 09:00 78 24 104/68 (80) 100 121/73 (89) 12/05/16 09:00 78 12/05/16 08:24 79 116/70 12/05/16 08:00 87 103/71 (82) 127/77 (94) 12/05/16 08:00 87 12/05/16 08:00 97.6 87 24 103/71 (82) 100 127/77 (94) 12/05/16 08:00 40 12/05/16 07:30 100 40 12/05/16 07:00 77 12/05/16 07:00 77 24 97/63 (74) 100 113/68 (83) 12/05/16 06:36 76 104/62 12/05/16 06:29 73 141/80 12/05/16 06:29 73 141/80 12/05/16 06:00 75 12/05/16 04:37 76 123/71 12/05/16 04:00 75 12/05/16 04:00 50 12/05/16 04:00 97.9 75 24 101/60 (74) 100 110/65 (80) 12/05/16 04:00 75 101/60 (74) 110/65 (80) 12/05/16 03:57 75 101/60 12/05/16 03:45 75 128/72 12/05/16 03:29 100 50 12/05/16 02:00 75 12/05/16 02:00 75 137/77 12/05/16 00:19 100 50 12/05/16 00:00 50 12/05/16 00:00 74 12/05/16 00:00 74 118/73 (88) 135/73 (93) 12/05/16 00:00 74 135/73 12/05/16 00:00 97.6 74 24 118/73 (88) 100 135/73 (93) 12/04/16 22:00 77 12/04/16 20:41 100 Ventilator 12/04/16 20:37 100 50 12/04/16 20:00 97.7 96 24 73/49 (57) 100 80/51 (61) 12/04/16 20:00 96 12/04/16 20:00 50 12/04/16 18:00 86 12/04/16 16:19 90 108/59 12/04/16 16:00 98.1 87 24 88/56 (67) 100 102/57 (72) 12/04/16 16:00 50 12/04/16 16:00 87 12/04/16 15:02 100 50 12/04/16 14:00 72 I/O 12/04/16 12/04/16 12/04/16 12/05/16 12/05/16 12/05/16 06:59 14:59 22:59 06:59 14:59 22:59 Intake Total 1960 ml 1026 ml 200 ml 2410 ml 300 ml Output Total 290 ml 250 ml 95 ml Balance 1670 ml 1026 ml -50 ml 2315 ml 300 ml Intake IV Total 1900 ml 1026 ml 200 ml 2410 ml 300 ml Other 60 ml Output Urine Total 200 ml 100 ml 50 ml Stool Total 0 ml Drainage Total 90 ml 150 ml 45 ml Laboratory Laboratory Tests Test 12/04/16 21:48 12/05/16 00:10 12/05/16 03:48 12/05/16 05:19 White Blood Count 16.2 16.3 Red Blood Count 3.42 3.23 Hemoglobin 10.4 9.9 Hematocrit 30.3 28.7 Mean Corpuscular Volume 88.4 88.7 Mean Corpuscular Hemoglobin 30.3 30.7 Mean Corpuscular Hemoglobin Concent 34.2 34.6 Red Cell Distribution Width 15.3 15.3 Platelet Count 57 52 Mean Platelet Volume 10.7 10.5 Urine Osmolality 308 Urine Random Creatinine 54.6 Urine Random Sodium 22 CBC Comment AUTO DIFF Differential Total Cells Counted 100 Neutrophils % (Manual) 70 Band Neutrophils % 7 Lymphocytes % 10 Monocytes % 11 Neutrophils # (Manual) 12.9 Metamyelocytes 2 Differential Comment FINAL DIFF MANUAL Platelet Estimate LOW Platelet Morphology Comment NORMAL Blood Urea Nitrogen 36 Creatinine 3.79 Random Glucose 208 Total Protein 4.8 Albumin 1.6 Calcium Level 5.4 Phosphorus Level 1.3 Magnesium Level 1.7 Alkaline Phosphatase 127 Aspartate Amino Transf (AST/SGOT) 464 Alanine Aminotransferase (ALT/SGPT) 206 Total Bilirubin 4.2 Sodium Level 146 Potassium Level 3.1 Chloride Level 105 Carbon Dioxide Level 28.7 Anion Gap 12 Estimat Glomerular Filtration Rate 12 Protein Corrected Calcium 6.4 Random Vancomycin Level 24.0 Blood Gas Puncture Site ART LINE Blood Gas Patient Temperature 98.6 Blood Gas HCO3 26 Blood Gas Base Excess 3.5 Blood Gas Oxygen Saturation 97 Arterial Blood pH 7.56 Arterial Blood Partial Pressure CO2 29 Arterial Blood Partial Pressure O2 137 Arterial Blood Oxygen Content 18.0 Arterial Blood Carboxyhemoglobin 1.3 Arterial Blood Methemoglobin 1.1 Blood Gas Hemoglobin 13.1 Oxygen Delivery Device VENTILATOR Blood Gas Ventilator Setting PRVC/AC Blood Gas Inspired Oxygen 50 Date/Time Source Procedure Growth Status 12/02/16 12:40 Blood Peripheral Aerobic Blood Culture - Preliminary Enterobacter Species Klebsiella Pneumoniae Escherichia Coli Resulted 12/02/16 12:40 Anaerobic Blood Culture - Preliminary Gram Negative Primitivo Resulted 12/03/16 14:55 Fluid Bile Fluid Gram Stain - Final Resulted 12/03/16 14:55 Body Fluid Culture - Preliminary Group D Enterococcus Resulted 12/03/16 10:15 Sputum Endotracheal Gram Stain - Final Complete 12/03/16 10:15 Sputum Culture - Final Escherichia Coli Complete 12/03/16 09:40 Urine Catheterized Urine Streptococcus pneumoniae Antigen (M - Final PRESUMPTIVE NEGATIVE FOR STREPTOCOCCU... Complete Imaging Last Impressions Chest X-Ray 12/05/16 06 Signed Impressions: Service Date/Time: Monday, December 05, 2016 04:32 - CONCLUSION: 1. Cardiomegaly and findings of congestive heart failure. There has been no significant change when compared to the prior exam. Royal Messer MD Abdomen/Pelvis CT 12/04/16 06 Signed Impressions: Service Date/Time: Sunday, December 04, 2016 09:35 - CONCLUSION: 1. Interval placement of a cholecystostomy tube. 2. Bibasilar consolidation likely related to atelectasis. This is unchanged. 3. Tip of the NG tube in the hiatal hernia. 4. Small volume ascites. 5. No acute abnormality observed. Nain Sharma Jr., MD Percutaneous Cholangiogram 12/03/16 0000 Signed Impressions: Service Date/Time: Saturday, December 03, 2016 14:31 - CONCLUSION: Uncomplicated percutaneous cholecystostomy as above. Nain Sharma Jr., MD Liver Ultrasound 12/02/16 0000 Signed Impressions: Service Date/Time: Friday, December 02, 2016 19:12 - CONCLUSION: 1. Cholelithiasis with wall thickening and trace pericholecystic fluid. 2. No evidence of biliary duct distention. 3. No other significant abnormality. Jak Hughes MD Physical Exam HEENT: Normocephalic; atraumatic; no jaundice. CHEST: Resp even/unlabored, OETT to vent. Diminished CARDIAC: RRR ABDOMEN: Soft, mildly distended,cholecystomy tube, bowel sounds are hypoactive EXTREMITIES: Generalized edema. SKIN: Normal; no rash; no jaundice. 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 (Danica Shipley) Assessment and Plan Plan ASSESSMENT: - Cholecystitis. CT scan abdomen and pelvis without iv contrast (12/02/16)---> No evidence of acute abdominal or pelvic process. No masses are identified. Cholelithiasis. Left lower lobe atelectasis versus pneumonia, a large hiatal hernia is present, diverticulosis without evidence of diverticulitis. Liver US (12/02/16)---> Cholelithiasis with wall thickening and trace pericholecystic fluid, no evidence of biliary duct distention, no other significant abnormality. Bacteremia with multiple organisms. GS following, s/p cholecystomy tube 12/03. Cefepime, Micafungin, Flagyl. LFTs improved. - Elevated LFTs. No evidence of biliary duct obstruction. No evidence of pancreatitis or dilated ducts on imaging. Unclear if this is all cholecystis, or passed stone, or possible ETOH and cholecystitis. S/P Cholecystomy tube. Hepatitis profile negative, HERBER negative, AMA pending, ASMA pending, Iron saturation 2.7%, Ferritin 306, ALpha 1 antitrypsin pending, Ceruloplasmin pending, AFP. T. Bili 4.2, 464, 206, 127. - Severe sepsis. BCx from 12/02/16 grew enterobacter species, klebsiella pneumoniae, escherichia coli, and GNR in the anaerobic bottle. Cefepime, Micafungin, Flagyl. On multiple vasopressors - Thrombocytopenia. Plt 52 - Anemia. HH 9.9/28.7. - Abdominal pain, nausea, decreased appetite. Likely related to cholecystis. - COCO with severe electrolyte abnormalities. - Resp. Failure, vent per CCM - Chronic back pain r/t scoliosis. Uses medical marijuana via vaping and takes 4 shots of scotch per day to help with her pain control. Last had these 2 weeks ago. - CAD, Hx HTN, Hyperlipidemia per attending. PLAN: - NPO - Defer diet to GS - Await liver workup - Abx per ID recommendations - Monitor labs- improving - S/P Cholecystomy tube placement by IR (12/03) - Consider MRCP when more stable if worsening of LFTs - Supportive care - Further recommendations to follow based on results of above - Pt seen and examined by Dr. Knight and myself and this note is written on his behalf (Danica Shipley) Physician Comments Patient seen and examined Agree with above Continue with current supportive care Monitor labs (Greg Knight MD) Danica Shipley Dec 05, 2016 12:12 Greg Knight MD Dec 05, 2016 17:40
[2016-12-05 12:39] LABS: ALPHA-1-ANTITRYPSIN 209 mg/dL (100 - 190)
--- NOTE | 2016-12-05 13:09 | HHI.CCPN ---
Subjective Remarks/Hospital Course This is a 71-year-old female presents to the ED via EMS for evaluation of fever , shortness breath, vomiting, diarrhea, abdominal pain She reports that she's been short of breath for the past 2 weeks, but has progressed in the past 2 days. Patient has been seeing a tool grinding machine operator for her shortness of breath, is not on home oxygen. The patient reported she has a history of smoking. She is also complaining of abdominal pain that started 2 days ago with vomiting and diarrhea. Patient has severe tenderness to mild palpation. She has history of NC. She received 500 mL normal saline IV bolus, and Zofran 4 mg IV. Critical care medicine was consulted. Subjective: 12/03: Tmax 100.9. Last evening the patient was noted to have significant respiratory decompensation with requirement for emergent intubation. The patient subsequently became hemodynamically unstable requiring vasopressor support. Patient is lightly sedated, and continues to have abdominal pain, and hypoactive bowel sounds, GI has been consulted. HIDA scan previously scheduled for this morning, after discussion with Dr Goodrich , plan for cholecystostomy tube placement by IR. Ultrasound liver showed no biliary duct distention but notable thickened gallbladder wall. 12/04: Tmax 100.4. Patient continues with severe metabolic acidosis, sodium bicarbonate infusion increased to 150 cc/hour yesterday afternoon. Antibiotics were expanded yesterday with addition of Micafungin and Diflucan. Blood cultures resulted with Enterobacter, Klebsiella pneumoniae and Escherichia coli. ID consulted recommendations appreciated. Patient is status post placement of percutaneous cholecystostomy tube . Patient now icteric, but LFTs are trending down. Records obtained from primary care physician with cardiology reports from earlier in the year, patient with noted pulmonary hypertension and NYHA class III. In-hospital echo pending. Patient continues on 3 pressors to maintain blood pressure. 12/05: Patient has been weaned off of vasopressor continues on to agents Gurinder- Synephrine, norepinephrine at low doses. Patient noted to still be thrombocytopenic platelet count decreased today HIT panel pending. INR remains elevated no active signs of bleeding liver function enzymes remain elevated. No urine output over the last 12 hours nephrology following discussion with for possible hemodialysis, will await nephrology recommendations. Sodium bicarbonate infusion discontinued. Patient remains alert GCS 11 T. Objective Vital Signs Date Time Temp Pulse Resp B/P (MAP) Pulse Ox O2 Delivery O2 Flow Rate FiO2 12/05/16 12:00 40 12/05/16 12:00 78 89/59 (69) 111/67 (82) 12/05/16 12:00 97.8 24 100 12/04/16 20:41 Ventilator 12/02/16 21:32 15.00 Intake and Output 12/05/16 12/05/16 12/05/16 07:59 15:59 23:59 Intake Total 2360 ml 300 ml Output Total 95 ml Balance 2265 ml 300 ml Result Diagram: 12/05/16 0348 12/05/16 0348 Other Results Microbiology Date/Time Source Procedure Growth Status 12/03/16 10:15 Sputum Endotracheal Gram Stain - Final Complete 12/03/16 10:15 Sputum Culture - Final Escherichia Coli Complete 12/03/16 10:15 Nasal Washing Influenza Types A,B Antigen (MURIEL) - Final NEGATIVE FOR FLU A AND B ANTIGEN.... Complete 12/03/16 09:40 Urine Catheterized Urine Streptococcus pneumoniae Antigen (M - Final PRESUMPTIVE NEGATIVE FOR STREPTOCOCCU... Complete 12/03/16 09:40 Urine Catheterized Urine Legionella Antigen - Final PRESUMPTIVE NEGATIVE FOR LEGIONELLA P... Complete Laboratory Tests Test 12/05/16 05:19 Blood Gas Puncture Site ART LINE Blood Gas Patient Temperature 98.6 Blood Gas HCO3 26 mmol/L (22-26) Blood Gas Base Excess 3.5 mmol/L (-2-2) Blood Gas Oxygen Saturation 97 % (90-100) Arterial Blood pH 7.56 (7.380-7.420) Arterial Blood Partial Pressure CO2 29 mmHg (38-42) Arterial Blood Partial Pressure O2 137 mmHg (61-120) Arterial Blood Oxygen Content 18.0 Vol % (12.0-20.0) Arterial Blood Carboxyhemoglobin 1.3 % (0-4) Arterial Blood Methemoglobin 1.1 % (0-2) Blood Gas Hemoglobin 13.1 G/DL (12.0-16.0) Oxygen Delivery Device VENTILATOR Blood Gas Ventilator Setting PRVC/AC Blood Gas Inspired Oxygen 50 % Imaging Last Impressions Chest X-Ray 12/05/16 0600 Signed Impressions: Service Date/Time: Monday, December 05, 2016 04:32 - CONCLUSION: 1. Cardiomegaly and findings of congestive heart failure. There has been no significant change when compared to the prior exam. Royal Messer MD Abdomen/Pelvis CT 12/04/16 0600 Signed Impressions: Service Date/Time: Sunday, December 04, 2016 09:35 - CONCLUSION: 1. Interval placement of a cholecystostomy tube. 2. Bibasilar consolidation likely related to atelectasis. This is unchanged. 3. Tip of the NG tube in the hiatal hernia. 4. Small volume ascites. 5. No acute abnormality observed. Nain Sharma Jr., MD Percutaneous Cholangiogram 12/03/16 0000 Signed Impressions: Service Date/Time: Saturday, December 03, 2016 14:31 - CONCLUSION: Uncomplicated percutaneous cholecystostomy as above. Nain Sharma Jr., MD Liver Ultrasound 12/02/16 0000 Signed Impressions: Service Date/Time: Friday, December 02, 2016 19:12 - CONCLUSION: 1. Cholelithiasis with wall thickening and trace pericholecystic fluid. 2. No evidence of biliary duct distention. 3. No other significant abnormality. Jak Hughes MD Last 24 hours Impressions Chest X-Ray 12/02/16 2305 Signed Impressions: Service Date/Time: Friday, December 02, 2016 23:12 - CONCLUSION: 1. Satisfactory position of endotracheal tube as above. 2. Uncomplicated line placement. No evidence of pneumothorax. Royal Messer MD Chest X-Ray 12/02/16 1217 Signed Impressions: Service Date/Time: Friday, December 02, 2016 12:56 - CONCLUSION: Cardiomegaly. Left lower lobe atelectasis versus pneumonia. Royal Messer MD Objective Remarks Infusions: Versed 2 mg/hour Norepinephrine 1.5 mcgs/min Gurinder-Synephrine 30 mcgs/min GENERAL: Critically ill appearing appropriately stated age female intubated and sedated SKIN: Warm and dry. Jaundiced appearing HEAD: Atraumatic. Normocephalic. EYES: Pupils equal and round. scleral icterus. No injection or drainage. Extraocular movements intact ENT: No nasal bleeding or discharge. Mucous membranes pink and moist. Orotracheally intubated NECK: Trachea midline. No JVD. CARDIOVASCULAR: Normal rate, regular rhythm. Telemetry sinus rhythm RESPIRATORY: No accessory muscle use. Clear to auscultation. Breath sounds equal bilaterally. GASTROINTESTINAL: Abdomen soft,nondistended, tender to palpation. No guarding. MUSCULOSKELETAL: Extremities without clubbing, cyanosis, or edema. No obvious deformities. NEUROLOGICAL: RASS -2. No gross focal/sensory deficits. Follows commands in all 4 extremities. Procedures 12/02-abdominal ultrasound 12/03- percutaneous cholecystostomy tube placement Urinary Catheter: Yes Peterson insert reason: Measure Accurate Output Date of Insertion: Dec 02, 2016 Line: Central Venous Catheter Side: Left Location: Femoral A/P Assessment and Plan ASSESSMENT This is a critically ill-appearing 71-year-old female in moderate distress with severe abdominal pain presenting with art hiatal hernia and diverticulitis with septic shock ,cardiogenic shock, multisystem organ dysfunction, requiring aggressive vasopressor support. Guarded prognosis. Abdominal pain Hiatal hernia Diverticulitis Cholelithiasis with cholecystitis Transaminitis Nausea Hyperlipidemia Hypertension History of NC Coronary artery disease-S/P angioplasty 2 History of systolic CHF Acute hypoxemic respiratory failure Probable community-acquired pneumonia Hypokalemia Alcohol use disorder Elevated creatinine Pancytopenia Transaminitis Acute renal failure Multisystem organ failure secondary to septic shock Acute decompensated systolic heart failure Coagulopathy PLAN Plan by systems: Neurologic: Neurochecks per ICU protocol Fentanyl and Versed infusions for ventilator synchrony Monitor for signs of alcohol withdrawal Daily sedation vacation-patient remains GCS 11 T Seizure precautions Tylenol 650 mg every 6 hours when necessary for temp greater than 101 Thiamine , folate and MVI Respiratory: Maintain O2 sat greater than 92% Bronchodilators 36 hours scheduled, every 2 hours PRN 12/02-intubation 7.5 ETT Ventilator bundle ABG 7.56/29/137/26/3.5-OD and bicarbonate infusion discontinued Cardiovascular: Initial troponin 0.07->0.11->0.49. Possibly secondary to acute Kidney injury, and low-flow cardiac output state 12/04 echo results-EF 50% Telemetry showing sinus rhythm Patient's being seen regularly by cloth colorer in [place] Shanda MD , obtain cardiology records regarding function Echo 10/03/15 per cardiology medical records([place])-normal LV function,EF 56%, mild septal LVH, mild TR, mild PAH Patient's home meds include ASA 81mg, Metoprolol 50 mg ER (recently discontinued secondary to hypotension by cloth colorer 3 weeks ago) will not restart secondary to hemodynamic instability, Rosvustatin at this time will not continue secondary to elevated LFT's continue to trend. aspirin 81 mg- held NYHA classification III-per previous records Lasix 20mg/day-on hold secondary to hemodynamic instability Flowtrac monitoring- Co 5.2 Renal: Last 24 hours urinary output- 325cc Avoid nephrotoxins, creatinine 2.4-> 2.6-> 3.4 today, omeprazole is continue Follow-up urine sodium, urine creatinine - FeNa 1.75 , no eosinophils Nephrology following-Dr. Carlos, patient may need hemodialysis await recommendations Review of medical records obtained from PCP baseline creatinine 1.3,PCP notes reveal patient had renal insufficiency CKD Stage 3 in the past Sodium bicarbonate infusion discontinued 12/05 -- Strict I/Os FEN/GI: Replete electrolytes Monitor BMP Sodium bicarbonate infusion at 150 cc/hour 12/05 GI recommendations -insert Dobbhoff tube, or NG tube and begin trickle feeds 12/02 CT abdomen pelvis-diverticulosis without diverticulitis, large hiatal hernia, cholelithiasis, no acute process ultrasound abdomen-no biliary duct dilatation, cholelithiasis with cholecystitis trace pericholecystic fluid 12/03- percutaneous cholecystostomy drain AST 630-> 300 ALT 215-> 151 Alk Phos 349 ->184 Consult GI, Consult General Surgery- concern for possible ischemia with low cardiac output state, no melena or hematemesis-currently not a surgical candidate Hold statin in the setting of elevated LFTs Repeat CT abd /pelvis -pending 12/04 BNP > 5000 -in the setting of acute renal failure, septic shock, and decompensated heart failure Heme/ID: Zosyn and vancomycin 3 days, discontinued 12/04, micafungin, Diflucan (Day 3) ID consulted-Dr. Ramos 12/03 blood cultures-Enterobacter, Klebsiella pneumoniae, Escherichia coli 12/03 Legionella, influenza , pneumococcal antigen- negative 12/03 sputum culture- NGTD Hematology oncology following INR 1.8-no active signs of bleeding 12/05 HIT panel Endocrine: Glucose monitoring per ICU protocol -- SSI Prophylaxis: GI Prophylaxis Famotidine DVT Prophylaxis -- SCDs Heparin 5000 SQ BID (on Hold) Lines: PIV's x 2. Central line left IJ, Art line left femoral Dispo: This patient remains critically ill with one or more organ systems which are or may become a threat to life. I have spent in excess of 30 minutes discontinuously in the care and management of this patient. This time is exclusive of procedures, and includes, but is not limited to, evaluation of the patient, review of the medical record, discussions with family, consultants, nursing staff, or respiratory therapy, and documentation in the medical record. 12/04: Discussed case with , updated him on patient's medical status. All questions answered. Living will obtained. Palliative care consult initiated for clarification. 12/05: Patient alternate CODE STATUS no shocks no drugs no CPR, living will placed in chart. Aggressive measures continue, possible hemodialysis. Physician Quiana Haywood MD Dec 05, 2016 13:09
--- NOTE | 2016-12-05 13:30 | HHI.HCPN ---
Reason for visit a. To assist with evaluation and management of symptoms including: dyspnea, pain, and debility b. To assist medical decision maker(s) with: better understanding of current medical conditions; weighing benefits/burdens of medical treatment options; making medical treatment decisions. . Subjective/Interval History Patient remains intubated, mechanically ventilated, and sedated. Patient opens eyes to sternal rub, withdraws to noxious stimuli on all four extremities, does not follow commands. Slowly weaning off vasopressors today, vasopressin is off, florencio-synephrine and norepinephrine are being titrated lower as tolerated. Oliguria worsening, potential need for dialysis, pending nephrology recommendations. Worsening thrombocytopenia today, platelet count 52 today, down from 107 on 12/03, follow up HIT panel ordered. Family/friend interactions Bedside conversation with patient's and daughter Pippa, updated on patient's clinical status, plan of care, discussed with patient's daughter the risks, benefits and limitations of CPR, she supports her father's decision for alternative code, intubation only. Advance Directives Living Will: Copy in medical record Health Care Surrogate: Copy in medical record Durable Power of Final Assembler: Copy in medical record Advance Directive Specifics Date completed: 01/04/15 . Health Care Surrogate(s): Marco Antonio Mark () Alternate HCS: Alvin Flores or Pippa Flores . Documented care wishes: Standard living will susie, patient documented she would not want life prolonging measures if she had a terminal condition or was in a persistent vegetative state. . Objective Vital Signs Date Time Temp Pulse Resp B/P (MAP) Pulse Ox O2 Delivery O2 Flow Rate FiO2 12/05/16 13:09 100 35 12/05/16 12:00 40 12/05/16 12:00 78 89/59 (69) 111/67 (82) 12/05/16 12:00 97.8 77 24 89/59 (69) 100 111/67 (82) 12/05/16 12:00 77 12/05/16 11:00 76 12/05/16 11:00 76 24 95/64 (74) 98 117/69 (85) 12/05/16 10:00 80 24 78/52 (61) 100 88/57 (67) 12/05/16 10:00 80 12/05/16 09:00 78 24 104/68 (80) 100 121/73 (89) 12/05/16 09:00 78 18 08:24 79 116/70 12/05/16 08:00 87 103/71 (82) 127/77 (94) 12/05/16 08:00 87 12/05/16 08:00 97.6 87 24 103/71 (82) 100 127/77 (94) 12/05/16 08:00 40 12/05/16 07:30 100 40 12/05/16 07:00 77 12/05/16 07:00 77 24 97/63 (74) 100 113/68 (83) 12/05/16 06:36 76 104/62 12/05/16 06:29 73 141/80 12/05/16 06:29 73 141/80 12/05/16 06:00 75 12/05/16 04:37 76 123/71 12/05/16 04:00 75 12/05/16 04:00 50 12/05/16 04:00 97.9 75 24 101/60 (74) 100 110/65 (80) 12/05/16 04:00 75 101/60 (74) 110/65 (80) 12/05/16 03:57 75 101/60 12/05/16 03:45 75 128/72 12/05/16 03:29 100 50 12/05/16 02:00 75 12/05/16 02:00 75 137/77 12/05/16 00:19 100 50 12/05/16 00:00 50 12/05/16 00:00 74 12/05/16 00:00 74 118/73 (88) 135/73 (93) 12/05/16 00:00 74 135/73 12/05/16 00:00 97.6 74 24 118/73 (88) 100 135/73 (93) 12/04/16 22:00 77 12/04/16 20:41 100 Ventilator 12/04/16 20:37 100 50 17 20:00 97.7 96 24 73/49 (57) 100 80/51 (61) 12/04/16 20:00 96 17 20:00 50 12/04/16 18:00 86 17 16:19 90 108/59 12/04/16 16:00 98.1 87 24 88/56 (67) 100 102/57 (72) 12/04/16 16:00 50 12/04/16 16:00 87 12/04/16 15:02 100 50 12/04/16 14:00 72 Intake & Output 12/05/16 12/05/16 06:59 18:59 Intake Total 2410 ml 300 ml Output Total 95 ml Balance 2315 ml 300 ml Intake IV Total 2410 ml 300 ml Output Urine Total 50 ml Drainage Total 45 ml . Physical Exam CONSTITUTIONAL/GENERAL: This is a critically ill patient, intubated and mechanically ventilated. TUBES/LINES/DRAINS: ETT, CVL LIJ, PIVx 2, Left femoral arterial line, soft wrist restraints SKIN: No jaundice, rashes, or lesions. Ecchymoses on upper extremities. No wounds seen anteriorly. Skin temperature appropriate. Not diaphoretic. EYES: Pupils pinpoint. Scleral icterus. Fundi not examined. NECK: Trachea midline. CARDIOVASCULAR: Regular rate and rhythm without murmurs, gallops, or rubs. Peripheral pulses symmetric. RESPIRATORY/CHEST: Symmetric, mechanically ventilated. Clear to auscultation. Breath sounds equal bilaterally. No wheezes, rales, or rhonchi. GASTROINTESTINAL: Abdomen soft, nontender, nondistended. Hypoactive bowel sounds present. GENITOURINARY: Without palpable bladder distension. Peterson catheter in place. MUSCULOSKELETAL: Extremities without clubbing, cyanosis, or edema. No mottling or clubbing. NEUROLOGICAL: Sedated. Follows simple one step commands. Localizes to noxious stimuli. PSYCHIATRIC: Unable to assess secondary to clinical condition. Diagnostic Tests Laboratory Laboratory Tests Test 12/02/16 15:20 12/02/16 19:35 12/02/16 20:00 12/02/16 21:36 Lactic Acid Level 1.4 mmol/L (0.4-2.0) Blood Urea Nitrogen 17 MG/DL (7-18) Creatinine 2.51 MG/DL (0.50-1.00) Random Glucose 132 MG/DL (74-106) Total Protein 6.4 GM/DL (6.4-8.2) Calcium Level 7.4 MG/DL (8.5-10.1) Sodium Level 144 MEQ/L (136-145) Potassium Level 2.2 MEQ/L (3.5-5.1) Chloride Level 108 MEQ/L (98-107) Carbon Dioxide Level 24.4 MEQ/L (21.0-32.0) Anion Gap 12 MEQ/L (5-15) Estimat Glomerular Filtration Rate 19 ML/MIN (>89) Protein Corrected Calcium 7.7 MG/DL (8.5-10.1) Total Bilirubin 4.0 MG/DL (0.2-1.0) Direct Bilirubin 3.2 MG/DL (0.0-0.2) Indirect Bilirubin 0.8 MG/DL (0.0-0.8) Aspartate Amino Transf (AST/SGOT) 753 U/L (15-37) Alanine Aminotransferase (ALT/SGPT) 215 U/L (10-53) Alkaline Phosphatase 412 U/L (45-117) Troponin I 0.11 NG/ML (0.02-0.05) Albumin 2.6 GM/DL (3.4-5.0) Nasal Screen MRSA (PCR) MRSA NOT DETECTED (NOT Blood Gas Puncture Site RT RADIAL Blood Gas Patient Temperature 98.6 Blood Gas HCO3 22 mmol/L (22-26) Blood Gas Base Excess -5.1 mmol/L (-2-2) Blood Gas Oxygen Saturation 90 % (90-100) Arterial Blood pH 7.17 (7.380-7.420) Arterial Blood Partial Pressure CO2 64 mmHg (38-42) Arterial Blood Partial Pressure O2 82 mmHg (61-120) Arterial Blood Oxygen Content 13.8 Vol % (12.0-20.0) Arterial Blood Carboxyhemoglobin 1.4 % (0-4) Arterial Blood Methemoglobin 1.2 % (0-2) Blood Gas Hemoglobin 10.8 G/DL (12.0-16.0) Oxygen Delivery Device NRB Blood Gas Liter Flow 15 L/M Test 12/02/16 23:22 12/03/16 00:08 12/03/16 04:17 12/03/16 09:40 Blood Gas Puncture Site NICOLE Blood Gas Patient Temperature 98.6 Blood Gas HCO3 15 mmol/L (22-26) Blood Gas Base Excess -9.5 mmol/L (-2-2) Blood Gas Oxygen Saturation 97 % (90-100) Arterial Blood pH 7.32 (7.380-7.420) Arterial Blood Partial Pressure CO2 31 mmHg (38-42) Arterial Blood Partial Pressure O2 167 mmHg (61-120) Arterial Blood Oxygen Content 17.3 Vol % (12.0-20.0) Arterial Blood Carboxyhemoglobin 1.4 % (0-4) Arterial Blood Methemoglobin 1.1 % (0-2) Blood Gas Hemoglobin 12.5 G/DL (12.0-16.0) Oxygen Delivery Device VENTILATOR Blood Gas Ventilator Setting SEE COMMENT Blood Gas Inspired Oxygen 100 % Magnesium Level 1.3 MG/DL (1.5-2.5) 2.8 MG/DL (1.5-2.5) White Blood Count 7.4 TH/MM3 (4.0-11.0) Red Blood Count 3.59 MIL/MM3 (4.00-5.30) Hemoglobin 11.3 GM/DL (11.6-15.3) Hematocrit 32.5 % (35.0-46.0) Mean Corpuscular Volume 90.6 FL (80.0-100.0) Mean Corpuscular Hemoglobin 31.4 PG (27.0-34.0) Mean Corpuscular Hemoglobin Concent 34.6 % (32.0-36.0) Red Cell Distribution Width 15.0 % (11.6-17.2) Platelet Count 107 TH/MM3 (150-450) Mean Platelet Volume 9.3 FL (7.0-11.0) Neutrophils (%) (Auto) 88.0 % (16.0-70.0) Lymphocytes (%) (Auto) 9.2 % (9.0-44.0) Monocytes (%) (Auto) 2.3 % (0.0-8.0) Eosinophils (%) (Auto) 0.3 % (0.0-4.0) Basophils (%) (Auto) 0.2 % (0.0-2.0) Neutrophils # (Auto) 6.5 TH/MM3 (1.8-7.7) Lymphocytes # (Auto) 0.7 TH/MM3 (1.0-4.8) Monocytes # (Auto) 0.2 TH/MM3 (0-0.9) Eosinophils # (Auto) 0.0 TH/MM3 (0-0.4) Basophils # (Auto) 0.0 TH/MM3 (0-0.2) CBC Comment DIFF FINAL Differential Comment Blood Urea Nitrogen 19 MG/DL (7-18) Creatinine 2.61 MG/DL (0.50-1.00) Random Glucose 180 MG/DL (74-106) Total Protein 5.6 GM/DL (6.4-8.2) Albumin 2.3 GM/DL (3.4-5.0) Calcium Level 6.9 MG/DL (8.5-10.1) Phosphorus Level 0.9 MG/DL (2.5-4.9) Alkaline Phosphatase 349 U/L (45-117) Aspartate Amino Transf (AST/SGOT) 630 U/L (15-37) Alanine Aminotransferase (ALT/SGPT) 215 U/L (10-53) Total Bilirubin 5.5 MG/DL (0.2-1.0) Sodium Level 146 MEQ/L (136-145) Potassium Level 2.2 MEQ/L (3.5-5.1) Chloride Level 110 MEQ/L (98-107) Carbon Dioxide Level 18.6 MEQ/L (21.0-32.0) Anion Gap 17 MEQ/L (5-15) Estimat Glomerular Filtration Rate 18 ML/MIN (>89) Protein Corrected Calcium 7.7 MG/DL (8.5-10.1) Troponin I 0.49 NG/ML (0.02-0.05) Triglycerides Level 102 MG/DL (42-150) Cholesterol Level LESS THAN 50 MG/DL LDL Cholesterol 13 MG/DL (0-99) HDL Cholesterol 16.6 MG/DL (40.0-60.0) Cholesterol/HDL Ratio 3.01 RATIO Random Vancomycin Level 11.9 COMMENT Urine Eosinophils NONE SEEN /HPF (NONE SEEN) Urine Random Creatinine 67.2 MG/DL Urine Random Sodium 66 MEQ/L Test 12/03/16 11:43 12/03/16 13:33 12/03/16 17:20 12/03/16 17:35 Blood Gas Puncture Site ART LINE ART LINE Blood Gas Patient Temperature 98.6 98.6 Blood Gas HCO3 15 mmol/L (22-26) 14 mmol/L (22-26) Blood Gas Base Excess -10.1 mmol/L (-2-2) -10.4 mmol/L (-2-2) Blood Gas Oxygen Saturation 92 % (90-100) 94 % (90-100) Arterial Blood pH 7.31 (7.380-7.420) 7.34 (7.380-7.420) Arterial Blood Partial Pressure CO2 30 mmHg (38-42) 27 mmHg (38-42) Arterial Blood Partial Pressure O2 80 mmHg (61-120) 87 mmHg (61-120) Arterial Blood Oxygen Content 14.3 Vol % (12.0-20.0) 13.6 Vol % (12.0-20.0) Arterial Blood Carboxyhemoglobin 1.3 % (0-4) 1.4 % (0-4) Arterial Blood Methemoglobin 1.4 % (0-2) 1.0 % (0-2) Blood Gas Hemoglobin 11.0 G/DL (12.0-16.0) 10.1 G/DL (12.0-16.0) Oxygen Delivery Device VENTILATOR VENTILATOR Blood Gas Ventilator Setting PRVC/AC PRVC/AC Blood Gas Inspired Oxygen 50 % 50 % Prothrombin Time 18.7 SEC (9.8-11.6) Prothromb Time International Ratio 1.7 RATIO Activated Partial Thromboplast Time 42.2 SEC (24.3-30.1) Fibrinogen 374 mg/dL (227-377) Blood Urea Nitrogen 24 MG/DL (7-18) Creatinine 3.07 MG/DL (0.50-1.00) Random Glucose 120 MG/DL (74-106) Total Protein 5.4 GM/DL (6.4-8.2) Calcium Level 6.9 MG/DL (8.5-10.1) Sodium Level 146 MEQ/L (136-145) Potassium Level 2.7 MEQ/L (3.5-5.1) Chloride Level 112 MEQ/L (98-107) Carbon Dioxide Level 17.9 MEQ/L (21.0-32.0) Anion Gap 16 MEQ/L (5-15) Estimat Glomerular Filtration Rate 15 ML/MIN (>89) Protein Corrected Calcium 7.8 MG/DL (8.5-10.1) Iron Level 6 MCG/DL (50-170) Total Iron Binding Capacity 221 MCG/DL (250-450) Percent Iron Saturation 2.7 % (20-50) Ferritin 306 NG/ML (8-252) [id number] 209 mg/dL (100 - 190) Tumor Marker Alpha Fetoprotein 2.0 NG/ML (0.5-8.0) Anti-Nuclear Antibody Screen NEG (NEG) Hepatitis A IgM Antibody NEGATIVE (NEGATIVE) Hepatitis B Surface Antigen NEGATIVE (NEGATIVE) Hepatitis B Core IgM Antibody NEGATIVE (NEGATIVE) Hepatitis C Antibody NEGATIVE (NEGATIVE) Test 12/03/16 19:10 12/04/16 04:15 12/04/16 05:06 12/04/16 12:00 Potassium Level 3.0 MEQ/L (3.5-5.1) 4.2 MEQ/L (3.5-5.1) White Blood Count 14.9 TH/MM3 (4.0-11.0) Red Blood Count 3.46 MIL/MM3 (4.00-5.30) Hemoglobin 10.6 GM/DL (11.6-15.3) Hematocrit 31.2 % (35.0-46.0) Mean Corpuscular Volume 90.2 FL (80.0-100.0) Mean Corpuscular Hemoglobin 30.7 PG (27.0-34.0) Mean Corpuscular Hemoglobin Concent 34.0 % (32.0-36.0) Red Cell Distribution Width 15.5 % (11.6-17.2) Platelet Count 51 TH/MM3 (150-450) Mean Platelet Volume 10.7 FL (7.0-11.0) Neutrophils (%) (Auto) 68.9 % (16.0-70.0) Lymphocytes (%) (Auto) 9.3 % (9.0-44.0) Monocytes (%) (Auto) 4.0 % (0.0-8.0) Eosinophils (%) (Auto) 17.6 % (0.0-4.0) Basophils (%) (Auto) 0.2 % (0.0-2.0) Neutrophils # (Auto) 10.3 TH/MM3 (1.8-7.7) Lymphocytes # (Auto) 1.4 TH/MM3 (1.0-4.8) Monocytes # (Auto) 0.6 TH/MM3 (0-0.9) Eosinophils # (Auto) 2.6 TH/MM3 (0-0.4) Basophils # (Auto) 0.0 TH/MM3 (0-0.2) CBC Comment AUTO DIFF Differential Total Cells Counted 100 Neutrophils % (Manual) 53 % (16-70) Band Neutrophils % 8 % (0-6) Lymphocytes % 33 % (9-44) Monocytes % 6 % (0-8) Neutrophils # (Manual) 9.1 TH/MM3 (1.8-7.7) Differential Comment FINAL DIFF MANUAL Toxic Vacuolation PRESENT (NONE SEEN) Dohle Bodies PRESENT (NONE SEEN) Platelet Estimate LOW (NORMAL) Platelet Morphology Comment NORMAL (NORMAL) Josue Cells 2+ (NORMAL) Red Cell Morphology Comment (NORMAL) Prothrombin Time 20.4 SEC (9.8-11.6) Prothromb Time International Ratio 1.8 RATIO Activated Partial Thromboplast Time 50.9 SEC (24.3-30.1) Blood Urea Nitrogen 26 MG/DL (7-18) Creatinine 3.41 MG/DL (0.50-1.00) Random Glucose 84 MG/DL (74-106) Total Protein 5.0 GM/DL (6.4-8.2) Albumin 2.0 GM/DL (3.4-5.0) Calcium Level 6.3 MG/DL (8.5-10.1) Phosphorus Level 1.8 MG/DL (2.5-4.9) Magnesium Level 1.9 MG/DL (1.5-2.5) Alkaline Phosphatase 184 U/L (45-117) Aspartate Amino Transf (AST/SGOT) 300 U/L (15-37) Alanine Aminotransferase (ALT/SGPT) 151 U/L (10-53) Total Bilirubin 4.8 MG/DL (0.2-1.0) Sodium Level 149 MEQ/L (136-145) Chloride Level 114 MEQ/L (98-107) Carbon Dioxide Level 17.4 MEQ/L (21.0-32.0) Anion Gap 18 MEQ/L (5-15) Estimat Glomerular Filtration Rate 13 ML/MIN (>89) Protein Corrected Calcium 7.3 MG/DL (8.5-10.1) B-Type Natriuretic Peptide GREATER THAN 5000 PG/ML Random Vancomycin Level 32.5 COMMENT Blood Gas Puncture Site ART LINE ART LINE Blood Gas Patient Temperature 98.6 98.6 Blood Gas HCO3 15 mmol/L (22-26) 17 mmol/L (22-26) Blood Gas Base Excess -9.4 mmol/L (-2-2) -6.0 mmol/L (-2-2) Blood Gas Oxygen Saturation 96 % (90-100) 97 % (90-100) Arterial Blood pH 7.35 (7.380-7.420) 7.44 (7.380-7.420) Arterial Blood Partial Pressure CO2 29 mmHg (38-42) 26 mmHg (38-42) Arterial Blood Partial Pressure O2 129 mmHg (61-120) 141 mmHg (61-120) Arterial Blood Oxygen Content 14.7 Vol % (12.0-20.0) 14.3 Vol % (12.0-20.0) Arterial Blood Carboxyhemoglobin 1.2 % (0-4) 1.1 % (0-4) Arterial Blood Methemoglobin 1.1 % (0-2) 1.2 % (0-2) Blood Gas Hemoglobin 10.7 G/DL (12.0-16.0) 10.3 G/DL (12.0-16.0) Oxygen Delivery Device VENTILATOR VENTILATOR Blood Gas Ventilator Setting [facility]/ SEE COMMENTS Blood Gas Inspired Oxygen 50 % 50 % Test 12/04/16 21:48 12/05/16 00:10 12/05/16 03:48 12/05/16 05:19 White Blood Count 16.2 TH/MM3 (4.0-11.0) 16.3 TH/MM3 (4.0-11.0) Red Blood Count 3.42 MIL/MM3 (4.00-5.30) 3.23 MIL/MM3 (4.00-5.30) Hemoglobin 10.4 GM/DL (11.6-15.3) 9.9 GM/DL (11.6-15.3) Hematocrit 30.3 % (35.0-46.0) 28.7 % (35.0-46.0) Mean Corpuscular Volume 88.4 FL (80.0-100.0) 88.7 FL (80.0-100.0) Mean Corpuscular Hemoglobin 30.3 PG (27.0-34.0) 30.7 PG (27.0-34.0) Mean Corpuscular Hemoglobin Concent 34.2 % (32.0-36.0) 34.6 % (32.0-36.0) Red Cell Distribution Width 15.3 % (11.6-17.2) 15.3 % (11.6-17.2) Platelet Count 57 TH/MM3 (150-450) 52 TH/MM3 (150-450) Mean Platelet Volume 10.7 FL (7.0-11.0) 10.5 FL (7.0-11.0) Urine Osmolality 308 MOSM/KG (300-1300) Urine Random Creatinine 54.6 MG/DL Urine Random Sodium 22 MEQ/L CBC Comment AUTO DIFF Differential Total Cells Counted 100 Neutrophils % (Manual) 70 % (16-70) Band Neutrophils % 7 % (0-6) Lymphocytes % 10 % (9-44) Monocytes % 11 % (0-8) Neutrophils # (Manual) 12.9 TH/MM3 (1.8-7.7) Metamyelocytes 2 % (0-1) Differential Comment FINAL DIFF MANUAL Platelet Estimate LOW (NORMAL) Platelet Morphology Comment NORMAL (NORMAL) Blood Urea Nitrogen 36 MG/DL (7-18) Creatinine 3.79 MG/DL (0.50-1.00) Random Glucose 208 MG/DL (74-106) Total Protein 4.8 GM/DL (6.4-8.2) Albumin 1.6 GM/DL (3.4-5.0) Calcium Level 5.4 MG/DL (8.5-10.1) Phosphorus Level 1.3 MG/DL (2.5-4.9) Magnesium Level 1.7 MG/DL (1.5-2.5) Alkaline Phosphatase 127 U/L (45-117) Aspartate Amino Transf (AST/SGOT) 464 U/L (15-37) Alanine Aminotransferase (ALT/SGPT) 206 U/L (10-53) Total Bilirubin 4.2 MG/DL (0.2-1.0) Sodium Level 146 MEQ/L (136-145) Potassium Level 3.1 MEQ/L (3.5-5.1) Chloride Level 105 MEQ/L (98-107) Carbon Dioxide Level 28.7 MEQ/L (21.0-32.0) Anion Gap 12 MEQ/L (5-15) Estimat Glomerular Filtration Rate 12 ML/MIN (>89) Protein Corrected Calcium 6.4 MG/DL (8.5-10.1) Random Vancomycin Level 24.0 COMMENT Blood Gas Puncture Site ART LINE Blood Gas Patient Temperature 98.6 Blood Gas HCO3 26 mmol/L (22-26) Blood Gas Base Excess 3.5 mmol/L (-2-2) Blood Gas Oxygen Saturation 97 % (90-100) Arterial Blood pH 7.56 (7.380-7.420) Arterial Blood Partial Pressure CO2 29 mmHg (38-42) Arterial Blood Partial Pressure O2 137 mmHg (61-120) Arterial Blood Oxygen Content 18.0 Vol % (12.0-20.0) Arterial Blood Carboxyhemoglobin 1.3 % (0-4) Arterial Blood Methemoglobin 1.1 % (0-2) Blood Gas Hemoglobin 13.1 G/DL (12.0-16.0) Oxygen Delivery Device VENTILATOR Blood Gas Ventilator Setting PRVC/AC Blood Gas Inspired Oxygen 50 % . Result Diagram: 12/05/16 0348 12/05/168 Microbiology Microbiology Date/Time Source Procedure Growth Status 12/03/16 14:55 Fluid Bile Fluid Gram Stain - Final Resulted 12/03/16 14:55 Body Fluid Culture - Preliminary Group D Enterococcus Resulted 12/03/16 10:15 Sputum Endotracheal Gram Stain - Final Complete 12/03/16 10:15 Sputum Culture - Final Escherichia Coli Complete 12/03/16 10:15 Nasal Washing Influenza Types A,B Antigen (MURIEL) - Final NEGATIVE FOR FLU A AND B ANTIGEN.... Complete 12/03/16 09:40 Urine Catheterized Urine Streptococcus pneumoniae Antigen (M - Final PRESUMPTIVE NEGATIVE FOR STREPTOCOCCU... Complete 12/03/16 09:40 Urine Catheterized Urine Legionella Antigen - Final PRESUMPTIVE NEGATIVE FOR LEGIONELLA P... Complete Imaging Last 72 hours Impressions Chest X-Ray 12/05/16 06 Signed Impressions: Service Date/Time: Monday, December 05, 2016 04:32 - CONCLUSION: 1. Cardiomegaly and findings of congestive heart failure. There has been no significant change when compared to the prior exam. Royal Messer MD Chest X-Ray 12/04/16 06 Signed Impressions: Service Date/Time: Sunday, December 04, 2016 04:25 - CONCLUSION: 1. The cardiac silhouette is enlarged in transverse diameter. 2. Bilateral lower lobe atelectasis versus pneumonia. There has been no significant change when compared to the prior exam. Royal Messer MD Abdomen/Pelvis CT 12/04/16 06 Signed Impressions: Service Date/Time: Sunday, December 04, 2016 09:35 - CONCLUSION: 1. Interval placement of a cholecystostomy tube. 2. Bibasilar consolidation likely related to atelectasis. This is unchanged. 3. Tip of the NG tube in the hiatal hernia. 4. Small volume ascites. 5. No acute abnormality observed. Nain Sharma Jr., MD Percutaneous Cholangiogram 12/03/16 0000 Signed Impressions: Service Date/Time: Saturday, December 03, 2016 14:31 - CONCLUSION: Uncomplicated percutaneous cholecystostomy as above. Nain Sharma Jr., MD Chest X-Ray 12/02/16 2305 Signed Impressions: Service Date/Time: Friday, December 02, 2016 23:12 - CONCLUSION: 1. Satisfactory position of endotracheal tube as above. 2. Uncomplicated line placement. No evidence of pneumothorax. Royal Messer MD . Assessment and Plan Disease Oriented Problem List: (1) Sepsis (2) Metabolic acidosis (3) Acute cholecystitis (4) Respiratory failure Symptom Scale: (1) Dyspnea (2) Debility (3) Pain Pertinent Non-Medical Issues Psychosocial:Patient is originally from [place], [place], she has been to her for 56 years and has two children. 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 She retired in her early 60s when she began spending half of the year between [place] and [place]. Spiritual: Legal: None known. Ethical issues impacting care:None known. Important Contacts Marco Antonio Flores () [phone] . Prognosis Patient has experienced a physical and functional decline over the past two years. She has suffered from chronic back pain due to scoliosis and has recently drank daily heavily to alleviate the pain. The patient was admitted for sepsis followed by respiratory distress requiring intubation, she has continued to decline and has now progressed into multiorgan failure. She is at an increased risk for complications/setbacks due to her advanced age, multiple comorbidities, and current clinical status. . Code Status: Alternative Code Plan * Legal decision maker: Patient does not have the capacity to make her own health care decisions. It is unclear at this time if she will regain the capacity to make her own health care decisions. Documented HCS is patient's Marco Antonio Flores [phone], alternate HCS are Alvin Flores or Pippa Flores. * CODE STATUS:Alternative code.Discussed with patient's daughter the risks, benefits and limitations of CPR, she supports her father's decision for alternative code, intubation only. * GOALS: Aggressive short of CPR. * SYMPTOM MANAGEMENT: * --pain: Patient at ongoing risk for pain secondary to intubation, mechanical ventilation, and bedbound status. Patient is currently sedated on versed and fentanyl. No recommendations at this time, further recommendations pending hospital course. * --dyspnea: Patient is intubated and mechanically ventilated, duonebs scheduled q 6hr and q 2hr PRN ordered. No recommendations at this time. * --debility: Secondary to current clinical status, mechanical ventilation, bedbound status. Patient is critically ill at this time and is not a candidate for PT. No recommendations at this time. * Palliative care contact information provided. * Palliative care will continue to follow during hospital course as condition evolves, to assist patient/family/decision-maker with understanding of medical conditions, weighing benefit/burdens of treatment options, for clarification of goals of treatment. Additionally will assist with symptoms of palliative concern. Attestation To help prompt me to consider important information that might be impacting today's encounter and assessment, information from prior notes written by myself or my colleagues may have been "brought forward" into today's note. My signature on this note, however, is an attestation that I personally performed the exam, history, and/or decision-making noted today, and, unless otherwise indicated, the interactions with patient, family, and staff as well as the review of records all occurred today. I also attest that the listed assessment and stated plan reflect my best clinical judgment today based on the combination of historical information, prior notes, and today's exam/ interactions. When time spent is documented, it refers only to time spent today by the signer, or if indicated, combined time spent today by collaborating physician/nurse practitioner. Kallie Miranda Dec 05, 2016 13:30
--- NOTE | 2016-12-05 13:45 | HHI.NPPN ---
Subjective History of Present Illness 71 year old with septic shock, on vasopressors ARF Objective Data Data 12/05/16 12/06/16 19:00 07:00 Intake Total 300 ml Balance 300 ml Intake IV Total 300 ml Vital Signs Date Time Temp Pulse Resp B/P (MAP) Pulse Ox O2 Delivery O2 Flow Rate FiO2 12/05/16 13:09 100 35 12/05/16 12:00 40 12/05/16 12:00 78 89/59 (69) 111/67 (82) 12/05/16 12:00 97.8 77 24 89/59 (69) 100 111/67 (82) 12/05/16 12:00 77 12/05/16 11:00 76 12/05/16 11:00 76 24 95/64 (74) 98 117/69 (85) 12/05/16 10:00 80 24 78/52 (61) 100 88/57 (67) 12/05/16 10:00 80 12/05/16 09:00 78 24 104/68 (80) 100 121/73 (89) 12/05/16 09:00 78 12/05/16 08:24 79 116/70 12/05/16 08:00 87 103/71 (82) 127/77 (94) 12/05/16 08:00 87 12/05/16 08:00 97.6 87 24 103/71 (82) 100 127/77 (94) 12/05/16 08:00 40 12/05/16 07:30 100 40 12/05/16 07:00 77 12/05/16 07:00 77 24 97/63 (74) 100 113/68 (83) 12/05/16 06:36 76 104/62 12/05/16 06:29 73 141/80 12/05/16 06:29 73 141/80 12/05/16 06:00 75 12/05/16 04:37 76 123/71 12/05/16 04:00 75 12/05/16 04:00 50 12/05/16 04:00 97.9 75 24 101/60 (74) 100 110/65 (80) 12/05/16 04:00 75 101/60 (74) 110/65 (80) 12/05/16 03:57 75 101/60 12/05/16 03:45 75 128/72 12/05/16 03:29 100 50 12/05/16 02:00 75 12/05/16 02:00 75 137/77 12/05/16 00:19 100 50 12/05/16 00:00 50 12/05/16 00:00 74 12/05/16 00:00 74 118/73 (88) 135/73 (93) 12/05/16 00:00 74 135/73 12/05/16 00:00 97.6 74 24 118/73 (88) 100 135/73 (93) 12/04/16 22:00 77 12/04/16 20:41 100 Ventilator 12/04/16 20:37 100 50 12/04/16 20:00 97.7 96 24 73/49 (57) 100 80/51 (61) 12/04/16 20:00 96 12/04/16 20:00 50 12/04/16 18:00 86 12/04/16 16:19 90 108/59 12/04/16 16:00 98.1 87 24 88/56 (67) 100 102/57 (72) 12/04/16 16:00 50 12/04/16 16:00 87 12/04/16 15:02 100 50 12/04/16 14:00 70 -: 12/05/16 0348 12/05/16 0348 Physical Exam General Appearance: Well Developed Neck Neck Exam: Neck Supple Pulmonary Resp Exam: Clear Bilaterally Cardiology CV Exam: Regular Gastrointestinal/Abdomen GI Exam: Soft, Non-Distended Integumentary Skin Exam: Clear Extremeties Extremities Exam: Trace Edema Assessment/Plan Problem List: (1) Acute kidney injury ICD Codes: N17.9 - Acute kidney failure, unspecified Status: Acute Plan: Patient has septic shock and acute tubular necrosis making small amount of urine, Continue supportive care with IV fluids and antibiotics and vasopressors CRRT ordered will monitor BMP and Mg/PO4 periodically 2020 pm seen at CRRT tolerating it started tonight follow Labs has epistaxis hematology following ? DIC /Thrombocytopenia (2) Acute cholecystitis ICD Codes: K81.0 - Acute cholecystitis Plan: Status post cholecystostomy (3) Sepsis ICD Codes: A41.9 - Sepsis, unspecified organism Status: Acute Plan: On antibiotics Problem Qualifiers (1) Sepsis: Qualified Codes: A41.9 - Sepsis, unspecified organism Myrtle Carlos MD Dec 05, 2016 13:45
[2016-12-05 14:33] LABS: SMOOTH MUSCLE TOTAL AUTOABS Negative (Negative)
[2016-12-05] MEDS: CEFEPIME INJ 2,000 MG in SODIUM CHLORIDE 0.9% INJ 100 ML IV SCH (14:38)
--- NOTE | 2016-12-05 15:28 | PD.ONC.PN ---
Subjective Subjective Remarks Afebrile Pt had dobhoff tube placed today and now has epistaxis of the L nare. Remains critically ill on vasopressors and now will be getting CRRT Objective Data Date Time Temp Pulse Resp B/P (MAP) Pulse Ox O2 Delivery O2 Flow Rate FiO2 12/05/16 14:00 79 12/05/16 13:09 100 35 12/05/16 13:00 78 12/05/16 12:00 40 12/05/16 12:00 78 89/59 (69) 111/67 (82) 12/05/16 12:00 97.8 77 24 89/59 (69) 100 111/67 (82) 12/05/16 12:00 77 12/05/16 11:00 76 12/05/16 11:00 76 24 95/64 (74) 98 117/69 (85) 12/05/16 10:00 80 24 78/52 (61) 100 88/57 (67) 12/05/16 10:00 80 12/05/16 09:00 78 24 104/68 (80) 100 121/73 (89) 12/05/16 09:00 78 12/05/16 08:24 79 116/70 12/05/16 08:00 87 103/71 (82) 127/77 (94) 12/05/16 08:00 87 12/05/16 08:00 97.6 87 24 103/71 (82) 100 127/77 (94) 12/05/16 08:00 40 12/05/16 07:30 100 40 12/05/16 07:00 77 12/05/16 07:00 77 24 97/63 (74) 100 113/68 (83) 12/05/16 06:36 76 104/62 12/05/16 06:29 73 141/80 12/05/16 06:29 73 141/80 12/05/16 06:00 75 12/05/16 04:37 76 123/71 12/05/16 04:00 75 12/05/16 04:00 50 12/05/16 04:00 97.9 75 24 101/60 (74) 100 110/65 (80) 12/05/16 04:00 75 101/60 (74) 110/65 (80) 12/05/16 03:57 75 101/60 12/05/16 03:45 75 128/72 12/05/16 03:29 100 50 12/05/16 02:00 75 12/05/16 02:00 75 137/77 12/05/16 00:19 100 50 12/05/16 00:00 50 12/05/16 00:00 74 12/05/16 00:00 74 118/73 (88) 135/73 (93) 12/05/16 00:00 74 135/73 12/05/16 00:00 97.6 74 24 118/73 (88) 100 135/73 (93) 12/04/16 22:00 77 12/04/16 20:41 100 Ventilator 12/04/16 20:37 100 50 12/04/16 20:00 97.7 96 24 73/49 (57) 100 80/51 (61) 12/04/16 20:00 96 12/04/16 20:00 50 12/04/16 18:00 86 12/04/16 16:19 90 108/59 12/04/16 16:00 98.1 87 24 88/56 (67) 100 102/57 (72) 12/04/16 16:00 50 12/04/16 16:00 87 12/05/16 12/05/16 12/05/16 07:00 15:00 23:00 Intake Total 2410 ml 500 ml Output Total 95 ml Balance 2315 ml 500 ml Result Diagram: 12/05/16 0348 12/05/16 1315 Laboratory Results Laboratory Tests Test 12/04/16 21:48 12/05/16 00:10 12/05/16 03:48 12/05/16 05:19 White Blood Count 16.2 TH/MM3 16.3 TH/MM3 Red Blood Count 3.42 MIL/MM3 3.23 MIL/MM3 Hemoglobin 10.4 GM/DL 9.9 GM/DL Hematocrit 30.3 % 28.7 % Mean Corpuscular Volume 88.4 FL 88.7 FL Mean Corpuscular Hemoglobin 30.3 PG 30.7 PG Mean Corpuscular Hemoglobin Concent 34.2 % 34.6 % Red Cell Distribution Width 15.3 % 15.3 % Platelet Count 57 TH/MM3 52 TH/MM3 Mean Platelet Volume 10.7 FL 10.5 FL Urine Osmolality 308 MOSM/KG Urine Random Creatinine 54.6 MG/DL Urine Random Sodium 22 MEQ/L CBC Comment AUTO DIFF Differential Total Cells Counted 100 Neutrophils % (Manual) 70 % Band Neutrophils % 7 % Lymphocytes % 10 % Monocytes % 11 % Neutrophils # (Manual) 12.9 TH/MM3 Metamyelocytes 2 % Differential Comment FINAL DIFF MANUAL Platelet Estimate LOW Platelet Morphology Comment NORMAL Blood Urea Nitrogen 36 MG/DL Creatinine 3.79 MG/DL Random Glucose 208 MG/DL Total Protein 4.8 GM/DL Albumin 1.6 GM/DL Calcium Level 5.4 MG/DL Phosphorus Level 1.3 MG/DL Magnesium Level 1.7 MG/DL Alkaline Phosphatase 127 U/L Aspartate Amino Transf (AST/SGOT) 464 U/L Alanine Aminotransferase (ALT/SGPT) 206 U/L Total Bilirubin 4.2 MG/DL Sodium Level 146 MEQ/L Potassium Level 3.1 MEQ/L Chloride Level 105 MEQ/L Carbon Dioxide Level 28.7 MEQ/L Anion Gap 12 MEQ/L Estimat Glomerular Filtration Rate 12 ML/MIN Protein Corrected Calcium 6.4 MG/DL Random Vancomycin Level 24.0 COMMENT Blood Gas Puncture Site ART LINE Blood Gas Patient Temperature 98.6 Blood Gas HCO3 26 mmol/L Blood Gas Base Excess 3.5 mmol/L Blood Gas Oxygen Saturation 97 % Arterial Blood pH 7.56 Arterial Blood Partial Pressure CO2 29 mmHg Arterial Blood Partial Pressure O2 137 mmHg Arterial Blood Oxygen Content 18.0 Vol % Arterial Blood Carboxyhemoglobin 1.3 % Arterial Blood Methemoglobin 1.1 % Blood Gas Hemoglobin 13.1 G/DL Oxygen Delivery Device VENTILATOR Blood Gas Ventilator Setting PRVC/AC Blood Gas Inspired Oxygen 50 % Test 12/05/16 13:15 12/05/16 14:02 Potassium Level 3.4 MEQ/L Culture Results Microbiology Date/Time Source Procedure Growth Status 12/03/16 14:55 Fluid Bile Fluid Gram Stain - Final Resulted 12/03/16 14:55 Body Fluid Culture - Preliminary Group D Enterococcus Resulted 12/03/16 10:15 Sputum Endotracheal Gram Stain - Final Complete 12/03/16 10:15 Sputum Culture - Final Escherichia Coli Complete 12/03/16 10:15 Nasal Washing Influenza Types A,B Antigen (MURIEL) - Final NEGATIVE FOR FLU A AND B ANTIGEN.... Complete 12/03/16 09:40 Urine Catheterized Urine Streptococcus pneumoniae Antigen (M - Final PRESUMPTIVE NEGATIVE FOR STREPTOCOCCU... Complete 12/03/16 09:40 Urine Catheterized Urine Legionella Antigen - Final PRESUMPTIVE NEGATIVE FOR LEGIONELLA P... Complete Imaging Studies Last 24 hours Impressions Chest X-Ray 12/05/16 0600 Signed Impressions: Service Date/Time: Monday, December 05, 2016 04:32 - CONCLUSION: 1. Cardiomegaly and findings of congestive heart failure. There has been no significant change when compared to the prior exam. Royal Messer MD Administered Medications Medications (Trade) Dose Ordered Sig/Dhruv Route PRN Reason Start Time Stop Time Status Last Admin Dose Admin Sodium Chloride (NS Flush) 2 ml UNSCH PRN IV FLUSH FLUSH AFTER USING IV ACCESS 12/02/16 16:15 12/05/16 08:25 Sodium Chloride (NS Flush) 2 ml BID IV FLUSH 12/02/16 21:00 12/05/16 08:25 Famotidine (Pepcid Inj) 20 mg DAILY IV PUSH 12/02/16 21:00 12/05/16 08:21 Heparin Sodium (Porcine) (Heparin Inj) 5,000 units Q12H SQ 12/02/16 17:00 Future Hold 12/04/16 04:28 Miscellaneous Information 1 Q361D XX 12/02/16 16:15 12/02/16 16:15 Chlorhexidine Gluconate (Chlorhexidine 2% Cloth) 3 pack Taper DAILY@04 TOP 12/03/16 04:00 11/29/17 03:59 12/05/16 04:00 Senna/Docusate Sodium (Keely-Colace) 1 tab BID PO 12/02/16 21:00 12/05/16 08:20 Insulin Human Regular (NovoLIN R SUPPLEMENTAL SCALE) 1 ACHS SLIDING SCALE SQ 12/02/16 17:00 12/05/16 11:25 Lorazepam (Ativan Inj) 1 mg Q4H PRN IV PUSH ANXIETY 12/02/16 16:45 12/02/16 20:23 Chlorhexidine Gluconate (Peridex 0.12% Liq) 15 ml BID@08,20 MT 12/03/16 08:00 12/05/16 08:22 Fentanyl Citrate 250 ml @ 5 mls/hr TITRATE PRN IV SEDATION 12/02/16 22:15 12/04/16 17:18 Norepinephrine Bitartrate 4 mg/ Sodium Chloride 250 ml @ 7.5 mls/hr TITRATE PRN IV Blood pressure management 12/02/16 22:15 12/05/16 04:37 Sodium Chloride (NS Flush) DAILY IV FLUSH 12/03/16 09:00 12/05/16 08:25 Sodium Chloride (NS Flush) UNSCH PRN IV FLUSH SEE PROTOCOL 12/02/16 23:15 12/05/16 08:24 Hydrocortisone Sodium Succinate (SoluCORTEF INJ) 100 mg Q8H IV PUSH 12/03/16 09:00 12/05/16 08:21 Artificial Tears (Tears Naturale Opth Soln) 1 drop Q8HR PRN EACH EYE DRY EYE 12/03/16 08:15 12/04/16 17:22 Albuterol/ Ipratropium (Duoneb Neb) 1 ampule Q6HR NEB NEB 12/03/16 10:00 12/05/16 14:49 Phenylephrine HCl 80 mg/Dextrose 500 ml @ 15 mls/hr TITRATE PRN IV Blood pressure Management 12/03/16 17:15 12/05/16 08:24 Metronidazole 100 ml @ 100 mls/hr Q8H IV 12/04/16 02:00 12/05/16 10:23 Micafungin Sodium 100 mg/Sodium Chloride 100 ml @ 100 mls/hr Q24H IV 12/04/16 18:00 12/04/16 17:17 Multivitamins 10 ml/Folic Acid 1 mg/Sodium Chloride 510.2 ml @ 125 mls/hr Q24H IV 12/04/16 10:00 12/09/16 09:59 12/04/16 10:56 Thiamine HCl 100 mg/Sodium Chloride 101 ml @ 100 mls/hr Q24H IV 12/04/16 11:00 12/07/16 10:59 12/05/16 10:23 Midazolam HCl 100 ml @ 2 mls/hr TITRATE PRN IV SEDATION 12/04/16 11:00 12/05/16 01:10 Cefepime HCl 2000 mg/Sodium Chloride 100 ml @ 200 mls/hr Q12H IV 12/05/16 14:00 12/05/16 14:38 Objective Remarks GENERAL: Sedated older female resting in bed, intubated, sedated. SKIN: Warm and dry. ENT: Dobhoff in L nare with mild epistaxis. Pressure being held by staff. HEAD: Normocephalic. EYES: No injection or drainage. NECK: Supple, trachea midline. CARDIOVASCULAR: +S1/S2 RESPIRATORY: anterior dennis clear. GASTROINTESTINAL: Abdomen soft, mild distension. EXTREMITIES: No cyanosis NEUROLOGICAL: intubated, sedated. Assessment/Plan Problem List: (1) Pancytopenia ICD Codes: D61.818 - Other pancytopenia Plan: 12/05: Pt with mild epistaxis to L nare; recent dobhoff placement. Will order stat coags and fibrinogen. Project Surveyor planning to place Vascath; per nephrology she will be getting CRRT. Platelets stable. --due to bone marrow suppression from sepsis. --expect her pancytopenia to get worse in the next several days if sepsis is not under control. --monitor her CBC closely and provide blood product support as needed. (2) Sepsis ICD Codes: A41.9 - Sepsis, unspecified organism Status: Acute Assessment 71y/o female admitted with dyspnea, fever and vomiting. Hematology consulted for pancytopenia h/o Coronary artery disease. Status post myocardial infarction. hypertension. Hypercholesterolemia. Attending Statement on vent, sedated. septic shock multiorgan failure. on a/b, pressors The exam, history, and the medical decision-making described in the above note were completed with the assistance of the mid-level provider. I reviewed and agree with the findings presented. I attest that I had a [id number] encounter with the patient on the same day, and personally performed and documented my assessment and findings in the medical record. Problem Qualifiers (1) Sepsis: Qualified Codes: A41.9 - Sepsis, unspecified organism Maddison Bustamante Dec 05, 2016 15:28 Lana Justice MD Dec 05, 2016 17:20
--- NOTE | 2016-12-05 15:41 | RADRPT ---
EXAM DATE/TIME: 12/05/2016 13:33 [facility] COMPARISON: CT ABDOMEN & PELVIS W/O CONTRAST, December 04, 2016, 9:35. INDICATIONS : NG tube placement MEDICAL HISTORY : Cardiovascular disease. Hypertension SURGICAL HISTORY : Cholecystostomy ENCOUNTER: Initial ACUITY: 1 day PAIN SCORE: Non-responsive. LOCATION: Bilateral upper quadrant FINDINGS: Single portable view of the abdomen demonstrates a feeding tube overlying the inferior chest. It part ially appears looped in the mid esophagus. Hiatal hernia is present. There is severe thoracic and lum bar scoliosis. Bibasilar opacities are stable. CONCLUSION: The distal tip of the feeding tube overlies the inferior right chest. Therefore, it is likely in bron chus intermedius or the right middle or lower lobe bronchus. A hiatal hernia is present but based on recent CT is located to the left of midline. Therefore, this feeding tube should be removed and repos itioned prior to use. Fermin Acosta MD on December 05, 2016 at 15:36 Board Certified Radiologist. This report was verified electronically.
[2016-12-05 16:21] LABS: INTERNATIONAL NORMALIZED RATIO 1.3 RATIO; PROTHROMBIN TIME - PATIENT 14.8 SEC (9.8-11.6)
[2016-12-05 16:38] LABS: BICARBONATE 30.2 MEQ/L (21.0-32.0); CREATININE 3.88 MG/DL (0.50-1.00)
--- NOTE | 2016-12-05 16:41 | RADRPT ---
EXAM DATE/TIME: 12/05/2016 16:17 [facility] COMPARISON: CHEST SINGLE AP, December 05, 2016, 4:32. INDICATIONS : Evalaute for pneumothorax after Dobhoff placement in right bronchus. MEDICAL HISTORY : Cardiovascular disease. Hypertension Hypercholesterolemia. Myocardial infarction. SURGICAL HISTORY : Cholecystectomy. ENCOUNTER: Subsequent ACUITY: 1 day PAIN SCORE: Non-responsive. LOCATION: chest FINDINGS: A single portable frontal view of the chest omits the lung bases. Endotracheal tube is seen with the tip approximately 5 cm from the real. Left-sided central line. No weighted feeding tube observed. B ibasilar infiltrates and small effusions. Mild cardiomegaly. Scoliotic and degenerative spine. CONCLUSION: 1. No weighted feeding tube observed on the current study. 2. Unchanged bibasilar infiltrates and small effusions. Nain Sharma Jr., MD on December 05, 2016 at 16:37 Board Certified Radiologist. This report was verified electronically.
[2016-12-05] MEDS ORDERED: Vancomycin Consult Pharmacy 1 EA OTHER SCH (16:45)
[2016-12-05 16:53] LABS: TOTAL PROTEIN 4.9 GM/DL (6.4-8.2)
[2016-12-05] MEDS ORDERED: HEPARIN IV 10,000 U/10 ML VIAL PRIMING IV PUSH PRN (17:30)
[2016-12-05] MEDS ORDERED: [UNRECOGNIZED DRUG - OTHER] OTHER PRN (17:45)
[2016-12-05] MEDS ORDERED: POTASSIUM CHLORIDE OTHER PRN (17:45)
[2016-12-05] MEDS: MICAFUNGIN INJ 100 MG in SODIUM CHLORIDE 0.9% INJ 100 ML IV SCH (18:48)
--- NOTE | 2016-12-05 18:58 | PD.PROCEDR ---
Central Line Procedure REASON FOR PROCEDURE Central venous access PROCEDURE PERFORMED Central line placement: Right femoral vasc catheter CONSENT Informed consent for procedure was obtained heart is been. The risks and benefits of the procedure were discussed to include but limited to bleeding, clot formation, infection, and even . ANESTHESIA Local injection of 1% Lidocaine DESCRIPTION OF THE PROCEDURE The patient was placed in supine, mild Trendelenburg position. The area was exposed and cleansed with ChloraPrep, times two. Large sterile drape was used to cover the patient, with the site exposed, under sterile conditions including cap, face mask, sterile gown, and sterile gloves. On single attempt, the introducer needle was inserted with negative pressure in syringe and venous flash was obtained. The guide wire was then advanced without any restriction and the needle was removed. The dilator was used without any complications. Using Seldinger technique the vascular 20cm x 14 catheter was advanced over the guide wire to a depth of 14 centimeters. The guide wire was removed. All ports were aspirated with dark venous blood return and flushed easily with sterile saline. All ports were capped. Antibiotic disc was placed around central line at puncture site. The central line was secured to the skin with two interrupted 2.0 silk sutures. The area was bandaged with sterile see- through central line bandage. RADIOLOGICAL DATA Ultrasound guidance was used to locate right femoral vein. Doppler/color flow was used to confirm venous flow. COMPLICATIONS: No apparent complications ESTIMATED BLOOD LOSS: Less than 1 cc. Quiana Mendieta MD Dec 05, 2016 18:58
[2016-12-05 23:52] LABS: CERULOPLASMIN 32 mg/dL (18-53)
[2016-12-06] VITALS (29 sets, daily range): BP systolic 97–148; BP diastolic 61–87; PULSE 65–82; RESP 18–24; TEMP 93.7–98.7; O2SAT 98–100
[2016-12-06] MEDS: HYDROCORTISONE SOD SUCCINATE 100 MG VIAL IV PUSH SCH ×3 (01:30→17:45)
[2016-12-06] MEDS: metroNIDAZOLE 500 MG INJ 100 ML IV SCH ×3 (01:31→17:45)
[2016-12-06] MEDS: CEFEPIME INJ 2,000 MG in SODIUM CHLORIDE 0.9% INJ 100 ML IV SCH ×2 (02:39→13:38)
[2016-12-06] MEDS: RESP: ALBUTEROL 2.5 MG/IPRATROPIUM 0.5 MG NEB (SCH) NEB ×4 (02:46→20:16)
[2016-12-06 03:28] LABS: HEMATOCRIT 30.3 % (35.0-46.0); HEMOGLOBIN 10.4 GM/DL (11.6-15.3); MEAN CELL VOLUME 88.4 FL (80.0-100.0); MEAN CORPUSCULAR HEMOGLOBIN 30.2 PG (27.0-34.0); MEAN CORPUSCULAR HGB CONC 34.1 % (32.0-36.0); MEAN PLATELET VOLUME 10.1 FL (7.0-11.0); PLATELET COUNT 52 TH/MM3 (150-450); RED BLOOD COUNT 3.43 MIL/MM3 (4.00-5.30); RED CELL DISTRIBUTION WIDTH 15.4 % (11.6-17.2); WHITE BLOOD COUNT 16.3 TH/MM3 (4.0-11.0)
[2016-12-06 03:39] LABS: INTERNATIONAL NORMALIZED RATIO 1.3 RATIO
[2016-12-06] MEDS: CHLORHEXIDINE GLUCONATE 2 % 1 PACK (2 CLOTHS) TOP SCH (04:00)
[2016-12-06 04:01] LABS: BANDS 9 % (0-6); CORRECTED NUCLEATED RBC 2 /100 WBC (0-0); LYMPHOCYTES 1 % (9-44); METAMYELOCYTES 6 % (0-1); MONOCYTES 17 % (0-8); NEUTROPHIL # MANUAL DIFF 13.4 TH/MM3 (1.8-7.7); NUCLEATED RED BLOOD CELL 2 (0-0); POLYS (SEG NEUTROPHILS) 67 % (16-70)
[2016-12-06 04:04] LABS: DOHLE BODIES PRESENT (NONE SEEN); OVALOCYTES 1+ (NORMAL); TOXIC VACUOLATION PRESENT (NONE SEEN)
[2016-12-06 04:16] LABS: ALBUMIN 1.6 GM/DL (3.4-5.0); BICARBONATE 23.3 MEQ/L (21.0-32.0); CALCIUM 5.6 MG/DL (8.5-10.1); CREATININE 3.25 MG/DL (0.50-1.00); MAGNESIUM 1.5 MG/DL (1.5-2.5); PHOSPHORUS 1.8 MG/DL (2.5-4.9); RANDOM VANCOMYCIN 18.3 COMMENT; TOTAL BILIRUBIN ADULT 3.8 MG/DL (0.2-1.0); TOTAL PROTEIN 5.1 GM/DL (6.4-8.2)
[2016-12-06 04:18] LABS: CALCIUM-PROTEIN CORRECTED 6.4 MG/DL (8.5-10.1)
[2016-12-06] MEDS: NOREPINEPHRINE INJ 4 MG in SODIUM CHLOR 0.9% 250 ML INJ 246 ML IV PRN (04:34)
[2016-12-06] MEDS: fentaNYL DRIP 250 ML IV PRN (04:35)
[2016-12-06] MEDS: PHENYLEPHRINE INJ 80 MG in DEXTROSE 5% IN WATE 500 ML INJ 492 ML IV PRN ×2 (04:35)
--- NOTE | 2016-12-06 05:04 | RADRPT ---
EXAM DATE/TIME: 12/06/2016 03:19 [facility] COMPARISON: CHEST SINGLE AP, December 05, 2016, 16:17. INDICATIONS : Shortness of breath, possible pulmonary disease. MEDICAL HISTORY : Cardiovascular disease. Hypertension Hypercholesterolemia. [place] SURGICAL HISTORY : Cholecystectomy. ENCOUNTER: Subsequent ACUITY: 4 - 6 days PAIN SCORE: Non-responsive. LOCATION: Bilateral chest FINDINGS: The cardiac silhouette is enlarged in transverse diameter. There is left lower lobe atelectasis versu s pneumonia. There is improving right basilar opacity. A small left sided effusion is present. CONCLUSION: 1. Left lower lobe atelectasis versus pneumonia. 2. Resolving right basilar atelectasis Royal Messer MD on December 06, 2016 at 5:02 Board Certified Radiologist. This report was verified electronically.
--- NOTE | 2016-12-06 05:04 | RADRPT ---
EXAM DATE/TIME: 12/06/2016 03:19 [facility] COMPARISON: CHEST SINGLE AP, December 05, 2016, 16:17. INDICATIONS : Shortness of breath, possible pulmonary disease. MEDICAL HISTORY : Cardiovascular disease. Hypertension Hypercholesterolemia. ID SURGICAL HISTORY : Cholecystectomy. ENCOUNTER: Subsequent ACUITY: 4 - 6 days PAIN SCORE: Non-responsive. LOCATION: Bilateral chest FINDINGS: The cardiac silhouette is enlarged in transverse diameter. There is left lower lobe atelectasis versu s pneumonia. There is improving right basilar opacity. A small left sided effusion is present. CONCLUSION: 1. Left lower lobe atelectasis versus pneumonia. 2. Resolving right basilar atelectasis Royal Messer MD on December 06, 2016 at 5:02 Board Certified Radiologist. This report was verified electronically.
--- NOTE | 2016-12-06 05:04 | RADRPT ---
EXAM DATE/TIME: 12/06/2016 03:19 [facility] COMPARISON: CHEST SINGLE AP, December 05, 2016, 16:17. INDICATIONS : Shortness of breath, possible pulmonary disease. MEDICAL HISTORY : Cardiovascular disease. Hypertension Hypercholesterolemia. IN SURGICAL HISTORY : Cholecystectomy. ENCOUNTER: Subsequent ACUITY: 4 - 6 days PAIN SCORE: Non-responsive. LOCATION: Bilateral chest FINDINGS: The cardiac silhouette is enlarged in transverse diameter. There is left lower lobe atelectasis versu s pneumonia. There is improving right basilar opacity. A small left sided effusion is present. CONCLUSION: 1. Left lower lobe atelectasis versus pneumonia. 2. Resolving right basilar atelectasis Royal Messer MD on December 06, 2016 at 5:02 Board Certified Radiologist. This report was verified electronically.
[2016-12-06] MEDS: CHLORHEXIDINE 0.12% (ORAL KIT) 15 ML CUP MT SCH ×2 (08:00→20:53)
[2016-12-06] MEDS: INSULIN NovoLIN REGULAR SUPPLEMENTAL SCALE SQ SCH ×4 (08:00→20:57)
[2016-12-06] MEDS: FAMOTIDINE 20 MG/2 ML VIAL IV PUSH SCH (08:18)
[2016-12-06] MEDS: SODIUM CHLORIDE 0.9% FLUSH 10 ML FLUSH IV FLUSH PRN ×4 (08:18→20:52)
[2016-12-06] MEDS: SODIUM CHLORIDE 0.9% FLUSH 10 ML FLUSH IV FLUSH SCH ×3 (08:19→20:52)
[2016-12-06] MEDS: DOCUSATE SODIUM 50 MG/SENNA 8.6 MG TAB PO SCH ×2 (08:20→20:53)
[2016-12-06] MEDS ORDERED: SODIUM CHLOR 0.9% 250 ML INJ 250 ML IV ONE (10:00)
[2016-12-06] MEDS: THIAMINE INJ 100 MG in SODIUM CHLORIDE 0.9% INJ 100 ML IV SCH (10:18)
[2016-12-06] MEDS: MULTIVITAMIN INJ 10 ML, FOLIC ACID INJ 1 MG in SODIUM CHLORID 0.9% 500 ML INJ 500 ML IV SCH (10:28)
--- NOTE | 2016-12-06 11:44 | PD.ONC.PN ---
Subjective Subjective Remarks Afebrile overnight. Patient intubated, sedated. Family at bedside. Patient has had nosebleed since yesterday, currently tamponed with gauze. Also with an abrasion/skin tear, left forearm. Receiving CRRT at bedside. Objective Data Date Time Temp Pulse Resp B/P (MAP) Pulse Ox O2 Delivery O2 Flow Rate FiO2 12/06/16 10:00 72 18 123/66 (85) 100 132/71 (91) 12/06/16 10:00 72 12/06/16 09:00 72 18 116/74 (88) 100 128/71 (90) 12/06/16 09:00 72 12/06/16 08:00 74 12/06/16 08:00 98.7 74 19 100/72 (81) 100 110/62 (78) 12/06/16 08:00 40 12/06/16 08:00 74 100/72 (81) 110/62 (78) 12/06/16 07:46 100 40 12/06/16 07:00 71 18 104/67 (79) 100 106/61 (76) 12/06/16 07:00 71 12/06/16 06:00 69 12/06/16 05:46 66 127/72 12/06/16 05:46 66 127/72 12/06/16 05:45 40 12/06/16 05:25 98 40 12/06/16 04:35 64 141/81 12/06/16 04:34 64 141/81 12/06/16 04:00 65 129/86 (100) 138/79 (98) 12/06/16 04:00 65 12/06/16 04:00 93.7 65 24 129/86 (100) 138/79 (98) 12/06/16 04:00 50 12/06/16 03:40 99 50 12/06/16 02:00 66 12/06/16 00:31 99 50 12/06/16 00:00 50 12/06/16 00:00 68 12/06/16 00:00 68 140/87 (104) 147/81 (103) 12/06/16 00:00 97.6 68 24 140/87 (104) 147/81 (103) 12/05/16 23:00 72 24 121/77 (92) 100 127/72 (90) 12/05/16 22:00 73 24 116/72 (87) 93 122/70 (87) 12/05/16 22:00 73 12/05/16 21:16 76 109/62 12/05/16 21:16 76 109/62 12/05/16 21:00 79 24 101/66 (78) 100 104/60 (75) 12/05/16 20:51 100 50 12/05/16 20:00 98.1 76 24 105/68 (80) 100 111/61 (78) 12/05/16 20:00 50 12/05/16 20:00 76 12/05/16 20:00 76 105/68 (80) 111/61 (78) 12/05/16 19:30 95 50 12/05/16 19:00 78 12/05/16 18:00 78 12/05/16 17:24 100 80 12/05/16 17:00 76 12/05/16 16:00 81 102/65 (77) 103/60 (74) 12/05/16 16:00 80 12/05/16 16:00 40 12/05/16 16:00 97.8 80 24 102/65 (77) 95 103/60 (74) 12/05/16 15:00 83 24 122/72 (89) 100 126/73 (90) 12/05/16 15:00 83 12/05/16 14:00 79 12/05/16 14:00 79 24 91/59 (70) 100 94/51 (65) 12/05/16 13:09 100 35 12/05/16 13:00 78 24 100/67 (78) 100 109/69 (82) 12/05/16 13:00 78 12/05/16 12:00 40 12/05/16 12:00 78 89/59 (69) 111/67 (82) 12/05/16 12:00 97.8 77 24 89/59 (69) 100 111/67 (82) 12/05/16 12:00 77 12/06/16 12/06/16 12/06/16 07:00 15:00 23:00 Intake Total 435.1 ml 200 ml Output Total 140 ml Balance 295.1 ml 200 ml Result Diagram: 12/06/16 0306 12/06/16 0306 Laboratory Results Laboratory Tests Test 12/05/16 13:15 12/05/16 14:02 12/05/16 15:42 12/06/16 03:06 Blood Urea Nitrogen 40 MG/DL 36 MG/DL Creatinine 3.88 MG/DL 3.25 MG/DL Random Glucose 162 MG/DL 132 MG/DL Total Protein 4.9 GM/DL 5.1 GM/DL Calcium Level 6.0 MG/DL 5.6 MG/DL Sodium Level 146 MEQ/L 145 MEQ/L Potassium Level 3.4 MEQ/L 3.5 MEQ/L Chloride Level 104 MEQ/L 108 MEQ/L Carbon Dioxide Level 30.2 MEQ/L 23.3 MEQ/L Anion Gap 12 MEQ/L 14 MEQ/L Estimat Glomerular Filtration Rate 11 ML/MIN 14 ML/MIN Protein Corrected Calcium 7.0 MG/DL 6.4 MG/DL Prothrombin Time 14.8 SEC 14.0 SEC Prothromb Time International Ratio 1.3 RATIO 1.3 RATIO Activated Partial Thromboplast Time 41.5 SEC 42.7 SEC Fibrinogen 434 mg/dL 392 mg/dL White Blood Count 16.3 TH/MM3 Red Blood Count 3.43 MIL/MM3 Hemoglobin 10.4 GM/DL Hematocrit 30.3 % Mean Corpuscular Volume 88.4 FL Mean Corpuscular Hemoglobin 30.2 PG Mean Corpuscular Hemoglobin Concent 34.1 % Red Cell Distribution Width 15.4 % Platelet Count 52 TH/MM3 Mean Platelet Volume 10.1 FL CBC Comment AUTO DIFF Differential Total Cells Counted 100 Neutrophils % (Manual) 67 % Band Neutrophils % 9 % Lymphocytes % 1 % Monocytes % 17 % Neutrophils # (Manual) 13.4 TH/MM3 Metamyelocytes 6 % Nucleated Red Blood Cells 2 /100 WBC Differential Comment FINAL DIFF MANUAL Toxic Vacuolation PRESENT Dohle Bodies PRESENT Platelet Estimate LOW Platelet Morphology Comment NORMAL Ovalocytes 1+ Albumin 1.6 GM/DL Phosphorus Level 1.8 MG/DL Magnesium Level 1.5 MG/DL Alkaline Phosphatase 140 U/L Aspartate Amino Transf (AST/SGOT) 555 U/L Alanine Aminotransferase (ALT/SGPT) 259 U/L Total Bilirubin 3.8 MG/DL Random Vancomycin Level 18.3 COMMENT Test 12/06/16 05:04 12/06/16 06:38 Blood Gas Puncture Site ART LINE ART LINE Blood Gas Patient Temperature 98.6 98.6 Blood Gas HCO3 23 mmol/L 23 mmol/L Blood Gas Base Excess 0.6 mmol/L 0.1 mmol/L Blood Gas Oxygen Saturation 97 % 97 % Arterial Blood pH 7.56 7.50 Arterial Blood Partial Pressure CO2 26 mmHg 30 mmHg Arterial Blood Partial Pressure O2 190 mmHg 138 mmHg Arterial Blood Oxygen Content 14.9 Vol % 19.1 Vol % Arterial Blood Carboxyhemoglobin 1.4 % 1.0 % Arterial Blood Methemoglobin 1.0 % 1.2 % Blood Gas Hemoglobin 10.6 G/DL 13.9 G/DL Oxygen Delivery Device VENTILATOR VENTILATOR Blood Gas Ventilator Setting PRVC/AC PRVC/AC 18/520/ Blood Gas Inspired Oxygen 50 % 40 % Culture Results Microbiology Date/Time Source Procedure Growth Status 12/03/16 14:55 Fluid Bile Fluid Gram Stain - Final Resulted 12/03/16 14:55 Body Fluid Culture - Preliminary Group D Enterococcus Resulted Imaging Studies Last 24 hours Impressions Chest X-Ray 12/06/16 0600 Signed Impressions: Service Date/Time: November 03:19 - CONCLUSION: 1. Left lower lobe atelectasis versus pneumonia. 2. Resolving right basilar atelectasis Royal Messer MD Administered Medications Medications (Trade) Dose Ordered Sig/Dhruv Route PRN Reason Start Time Stop Time Status Last Admin Dose Admin Sodium Chloride (NS Flush) 2 ml UNSCH PRN IV FLUSH FLUSH AFTER USING IV ACCESS 12/02/16 16:15 12/06/16 08:19 Sodium Chloride (NS Flush) 2 ml BID IV FLUSH 12/02/16 21:00 12/06/16 08:19 Famotidine (Pepcid Inj) 20 mg DAILY IV PUSH 12/02/16 21:00 12/06/16 08:18 Heparin Sodium (Porcine) (Heparin Inj) 5,000 units Q12H SQ 12/02/16 17:00 Future Hold 12/04/16 04:28 Miscellaneous Information 1 Q361D XX 12/02/16 16:15 12/02/16 16:15 Chlorhexidine Gluconate (Chlorhexidine 2% Cloth) 3 pack Taper DAILY@04 TOP 12/03/16 04:00 11/29/17 03:59 12/06/16 04:00 Senna/Docusate Sodium (Keely-Colace) 1 tab BID PO 12/02/16 21:00 12/05/16 08:20 Insulin Human Regular (NovoLIN R SUPPLEMENTAL SCALE) 1 ACHS SLIDING SCALE SQ 12/02/16 17:00 12/05/16 11:25 Lorazepam (Ativan Inj) 1 mg Q4H PRN IV PUSH ANXIETY 12/02/16 16:45 12/02/16 20:23 Chlorhexidine Gluconate (Peridex 0.12% Liq) 15 ml BID@08,20 MT 12/03/16 08:00 12/06/16 08:00 Fentanyl Citrate 250 ml @ 5 mls/hr TITRATE PRN IV SEDATION 12/02/16 22:15 12/06/16 04:35 Norepinephrine Bitartrate 4 mg/ Sodium Chloride 250 ml @ 7.5 mls/hr TITRATE PRN IV Blood pressure management 12/02/16 22:15 12/06/16 04:34 Sodium Chloride (NS Flush) DAILY IV FLUSH 12/03/16 09:00 12/06/16 08:19 Sodium Chloride (NS Flush) UNSCH PRN IV FLUSH SEE PROTOCOL 12/02/16 23:15 12/06/16 08:18 Hydrocortisone Sodium Succinate (SoluCORTEF INJ) 100 mg Q8H IV PUSH 12/03/16 09:00 12/06/16 08:18 Artificial Tears (Tears Naturale Opth Soln) 1 drop Q8HR PRN EACH EYE DRY EYE 12/03/16 08:15 12/04/16 17:22 Albuterol/ Ipratropium (Duoneb Neb) 1 ampule Q6HR NEB NEB 12/03/16 10:00 12/06/16 07:45 Phenylephrine HCl 80 mg/Dextrose 500 ml @ 15 mls/hr TITRATE PRN IV Blood pressure Management 12/03/16 17:15 12/06/16 04:35 Metronidazole 100 ml @ 100 mls/hr Q8H IV 12/04/16 02:00 12/06/16 10:18 Micafungin Sodium 100 mg/Sodium Chloride 100 ml @ 100 mls/hr Q24H IV 12/04/16 18:00 12/05/16 18:48 Multivitamins 10 ml/Folic Acid 1 mg/Sodium Chloride 510.2 ml @ 125 mls/hr Q24H IV 12/04/16 10:00 12/09/16 09:59 12/06/16 10:28 Thiamine HCl 100 mg/Sodium Chloride 101 ml @ 100 mls/hr Q24H IV 12/04/16 11:00 12/07/16 10:59 12/06/16 10:18 Midazolam HCl 100 ml @ 2 mls/hr TITRATE PRN IV SEDATION 12/04/16 11:00 12/05/16 01:10 Cefepime HCl 2000 mg/Sodium Chloride 100 ml @ 200 mls/hr Q12H IV 12/05/16 14:00 12/06/16 02:39 Objective Remarks GENERAL: Intubated, sedated, female SKIN: Warm and dry. left forearm with small skin tear and some mild bruising. HEAD: Normocephalic. left nare with gauze soaked with dried blood. EYES: No injection or drainage. NECK: Supple, trachea midline. CARDIOVASCULAR: +S1/S2 RESPIRATORY: anterior dennis with scattered rhonchi. On mechanical ventilation. GASTROINTESTINAL: Abdomen soft, mild distension. EXTREMITIES: No cyanosis. + anasarca. NEUROLOGICAL: intubated, sedated. Assessment/Plan Problem List: (1) Pancytopenia ICD Codes: D61.818 - Other pancytopenia Plan: 12/06: Epistaxis persistent. coags prolonged. platelets around 50K. will give 2 units FFP. --due to bone marrow suppression from sepsis. --expect her pancytopenia to get worse in the next several days if sepsis is not under control. --monitor her CBC closely and provide blood product support as needed. (2) Sepsis ICD Codes: A41.9 - Sepsis, unspecified organism Status: Acute (3) Acute kidney injury ICD Codes: N17.9 - Acute kidney failure, unspecified Status: Acute Plan: --receiving CRRT Assessment 71y/o female admitted with dyspnea, fever and vomiting. Hematology consulted for pancytopenia h/o Coronary artery disease. Status post myocardial infarction. hypertension. Hypercholesterolemia. Attending Statement sedated Intubated septic low plat and anemia due to BM suppression from sepsis Epistaxis due to coagulopathy. FFP 2 units. Problem Qualifiers (1) Sepsis: Qualified Codes: A41.9 - Sepsis, unspecified organism Tatum Proctor Dec 06, 2016 11:44 Lana Justice MD Dec 07, 2016 06:21
--- NOTE | 2016-12-06 11:51 | HHI.GIFU ---
Subjective Remarks Sedated on ventilator. Nurse was not able to place OGT yesterday- would not advance. Dobbhoff was attempted, but went into the bronchus and had nose bleeding afterwards. Left nare packed. She was started on CVVHD overnight. B/ P is stable. Had small bowel movement this am. (Danica Shipley) Objective Vitals I&O Vital Signs Date Time Temp Pulse Resp B/P (MAP) Pulse Ox O2 Delivery O2 Flow Rate FiO2 12/06/16 10:00 72 18 123/66 (85) 100 132/71 (91) 12/06/16 10:00 72 12/06/16 09:00 72 18 116/74 (88) 100 128/71 (90) 12/06/16 09:00 72 12/06/16 08:00 74 12/06/16 08:00 98.7 74 19 100/72 (81) 100 110/62 (78) 12/06/16 08:00 40 12/06/16 08:00 74 100/72 (81) 110/62 (78) 12/06/16 07:46 100 40 12/06/16 07:00 71 18 104/67 (79) 100 106/61 (76) 12/06/16 07:00 71 12/06/16 06:00 69 12/06/16 05:46 66 127/72 12/06/16 05:46 66 127/72 12/06/16 05:45 40 12/06/16 05:25 98 40 12/06/16 04:35 64 141/81 12/06/16 04:34 64 141/81 12/06/16 04:00 65 129/86 (100) 138/79 (98) 12/06/16 04:00 65 12/06/16 04:00 93.7 65 24 129/86 (100) 138/79 (98) 12/06/16 04:00 50 12/06/16 03:40 99 50 12/06/16 02:00 66 12/06/16 00:31 99 50 12/06/16 00:00 50 12/06/16 00:00 68 12/06/16 00:00 68 140/87 (104) 147/81 (103) 12/06/16 00:00 97.6 68 24 140/87 (104) 147/81 (103) 12/05/16 23:00 72 24 121/77 (92) 100 127/72 (90) 17 22:00 73 24 116/72 (87) 93 122/70 (87) 17 22:00 73 [id number] 21:16 76 109/62 17 21:16 76 109/62 17 21:00 79 24 101/66 (78) 100 104/60 (75) 17 20:51 100 50 12/05/17 20:00 98.1 76 24 105/68 (80) 100 111/61 (78) 17 20:00 50 17 20:00 76 17 20:00 76 105/68 (80) 111/61 (78) 12/05/16 19:30 95 50 17 19:00 78 17 18:00 78 12/05/16 17:24 100 80 17 17:00 76 17 16:00 81 102/65 (77) 103/60 (74) 12/05/16 16:00 80 17 16:00 40 12/05/16 16:00 97.8 80 24 102/65 (77) 95 103/60 (74) 17 15:00 83 24 122/72 (89) 100 126/73 (90) 17 15:00 83 17 14:00 79 12/05/16 14:00 79 24 91/59 (70) 100 94/51 (65) 12/05/16 13:09 100 35 17 13:00 78 24 100/67 (78) 100 109/69 (82) 17 13:00 78 12/05/16 12:00 40 17 12:00 78 89/59 (69) 111/67 (82) 17 12:00 97.8 77 24 89/59 (69) 100 111/67 (82) 17 12:00 77 I/O 12/05/16 12/05/16 12/05/16 12/06/16 12/06/16 12/06/16 07:00 15:00 23:00 07:00 15:00 23:00 Intake Total 2410 ml 500 ml 300 ml 435.1 ml 200 ml Output Total 95 ml 120 ml 140 ml Balance 2315 ml 500 ml 180 ml 295.1 ml 200 ml Intake IV Total 2410 ml 500 ml 300 ml 435.1 ml 200 ml Output Urine Total 50 ml 60 ml 60 ml Stool Total 0 ml Drainage Total 45 ml 60 ml 80 ml Laboratory Laboratory Tests Test 12/05/16 13:15 12/05/16 14:02 12/05/16 15:42 12/06/16 03:06 Blood Urea Nitrogen 40 36 Creatinine 3.88 3.25 Random Glucose 162 132 Total Protein 4.9 5.1 Calcium Level 6.0 5.6 Sodium Level 146 145 Potassium Level 3.4 3.5 Chloride Level 104 108 Carbon Dioxide Level 30.2 23.3 Anion Gap 12 14 Estimat Glomerular Filtration Rate 11 14 Protein Corrected Calcium 7.0 6.4 Prothrombin Time 14.8 14.0 Prothromb Time International Ratio 1.3 1.3 Activated Partial Thromboplast Time 41.5 42.7 Fibrinogen 434 392 White Blood Count 16.3 Red Blood Count 3.43 Hemoglobin 10.4 Hematocrit 30.3 Mean Corpuscular Volume 88.4 Mean Corpuscular Hemoglobin 30.2 Mean Corpuscular Hemoglobin Concent 34.1 Red Cell Distribution Width 15.4 Platelet Count 52 Mean Platelet Volume 10.1 CBC Comment AUTO DIFF Differential Total Cells Counted 100 Neutrophils % (Manual) 67 Band Neutrophils % 9 Lymphocytes % 1 Monocytes % 17 Neutrophils # (Manual) 13.4 Metamyelocytes 6 Nucleated Red Blood Cells 2 Differential Comment FINAL DIFF MANUAL Toxic Vacuolation PRESENT Dohle Bodies PRESENT Platelet Estimate LOW Platelet Morphology Comment NORMAL Ovalocytes 1+ Albumin 1.6 Phosphorus Level 1.8 Magnesium Level 1.5 Alkaline Phosphatase 140 Aspartate Amino Transf (AST/SGOT) 555 Alanine Aminotransferase (ALT/SGPT) 259 Total Bilirubin 3.8 Random Vancomycin Level 18.3 Test 12/06/16 05:04 12/06/16 06:38 Blood Gas Puncture Site ART LINE ART LINE Blood Gas Patient Temperature 98.6 98.6 Blood Gas HCO3 23 23 Blood Gas Base Excess 0.6 0.1 Blood Gas Oxygen Saturation 97 97 Arterial Blood pH 7.56 7.50 Arterial Blood Partial Pressure CO2 26 30 Arterial Blood Partial Pressure O2 190 138 Arterial Blood Oxygen Content 14.9 19.1 Arterial Blood Carboxyhemoglobin 1.4 1.0 Arterial Blood Methemoglobin 1.0 1.2 Blood Gas Hemoglobin 10.6 13.9 Oxygen Delivery Device VENTILATOR VENTILATOR Blood Gas Ventilator Setting PRVC/AC PRVC/AC 18/520/ Blood Gas Inspired Oxygen 50 40 Date/Time Source Procedure Growth Status 12/02/16 12:40 Blood Peripheral Aerobic Blood Culture - Final Klebsiella Pneumoniae Escherichia Coli Enterobacter Species Complete 12/02/16 12:40 Anaerobic Blood Culture - Final Klebsiella Pneumoniae Escherichia Coli Enterobacter Species Complete 12/03/16 14:55 Fluid Bile Fluid Gram Stain - Final Resulted 12/03/16 14:55 Body Fluid Culture - Preliminary Group D Enterococcus Resulted 12/03/16 10:15 Sputum Endotracheal Gram Stain - Final Complete 12/03/16 10:15 Sputum Culture - Final Escherichia Coli Complete 12/03/16 09:40 Urine Catheterized Urine Streptococcus pneumoniae Antigen (M - Final PRESUMPTIVE NEGATIVE FOR STREPTOCOCCU... Complete Imaging Last Impressions Chest X-Ray 12/06/16 0600 Signed Impressions: Service Date/Time: November 03:19 - CONCLUSION: 1. Left lower lobe atelectasis versus pneumonia. 2. Resolving right basilar atelectasis Royal Messer MD Abdomen X-Ray 12/05/16 0000 Signed Impressions: Service Date/Time: Monday, December 05, 2016 13:33 - CONCLUSION: The distal tip of the feeding tube overlies the inferior right chest. Therefore, it is likely in bronchus intermedius or the right middle or lower lobe bronchus. A hiatal hernia is present but based on recent CT is located to the left of midline. Therefore, this feeding tube should be removed and repositioned prior to use. Fermin Acosta MD Abdomen/Pelvis CT 12/04/16 0600 Signed Impressions: Service Date/Time: Sunday, December 04, 2016 09:35 - CONCLUSION: 1. Interval placement of a cholecystostomy tube. 2. Bibasilar consolidation likely related to atelectasis. This is unchanged. 3. Tip of the NG tube in the hiatal hernia. 4. Small volume ascites. 5. No acute abnormality observed. Nain Sharma Jr., MD Percutaneous Cholangiogram 12/03/16 0000 Signed Impressions: Service Date/Time: Saturday, December 03, 2016 14:31 - CONCLUSION: Uncomplicated percutaneous cholecystostomy as above. Nain Sharma Jr., MD Liver Ultrasound 12/02/16 0000 Signed Impressions: Service Date/Time: Friday, December 02, 2016 19:12 - CONCLUSION: 1. Cholelithiasis with wall thickening and trace pericholecystic fluid. 2. No evidence of biliary duct distention. 3. No other significant abnormality. Jak Hughes MD Physical Exam GEN: Sedated on vent. On CVVHD. HEENT: Normocephalic; atraumatic; no jaundice. Left nare packed. CHEST: Resp even/unlabored, OETT to vent. Diminished. CARDIAC: RRR ABDOMEN: Soft, mildly distended, cholecystomy tube patent draining, bowel sounds are hypoactive EXTREMITIES: Generalized edema. SKIN: Normal; no rash; no jaundice. 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 (Danica Shipley) Assessment and Plan Plan ASSESSMENT: - Cholecystitis. CT scan abdomen and pelvis without iv contrast (12/02/16)---> No evidence of acute abdominal or pelvic process. No masses are identified. Cholelithiasis. Left lower lobe atelectasis versus pneumonia, a large hiatal hernia is present, diverticulosis without evidence of diverticulitis. Liver US (12/02/16)---> Cholelithiasis with wall thickening and trace pericholecystic fluid, no evidence of biliary duct distention, no other significant abnormality. Bacteremia with multiple organisms. GS following, s/p cholecystomy tube 12/03. Cefepime, Micafungin, Flagyl. LFTs improved. - FEN/Malnutrition. Nurse was unable to place OGT (would not advance). Attempt at Dobbhoff was unsuccessful. Platelets 52,000. PT 14.0, INR 1.3, APTT 42.7. Fibrinogen 392. Dr. Knight placed Dobbhoff at bedside. KUB ordered to confirm placement. If not confirmed, will plan for egd with OGT/NGT placement in am. - Epistaxis. after attempted Dobbhoff placement. Getting 2 units FFP. - Thrombocytopenia, Coagulopathy. Getting 2 untis of FFP. HIT pending. - Elevated LFTs. No evidence of biliary duct obstruction. No evidence of pancreatitis or dilated ducts on imaging. Unclear if this is all cholecystis, or passed stone, or possible ETOH and cholecystitis. S/P Cholecystomy tube. Hepatitis profile negative, HERBER negative, AMA pending, ASMA neg, Iron saturation 2.7%, Ferritin 306, ALpha 1 antitrypsin 209, Ceruloplasmin 32, AFP. T. Bili 3.8, AST 555, ALT 259, ALk PHosph 140. - Severe sepsis with multisystem failure. BCx from 12/02/16 grew enterobacter species, klebsiella pneumoniae, escherichia coli, and GNR in the anaerobic bottle. Bile cx Group D Enterococcus. Sputum Cx E. Coli. Cefepime, Micafungin, Flagyl. - Anemia. HH 10.4/30.3 - Abdominal pain, nausea, decreased appetite. Likely related to cholecystis. Currently sedated. - ARF with severe electrolyte abnormalities. Pt was started on CVVHD, b/p stable on pressors at this time. - Resp. Failure/PNA. CXR LLL atelectasis vs. pna, resolving right basilar atelectasis. Cx E. Coli. vent per CCM - Chronic back pain r/t scoliosis. Uses medical marijuana via vaping and takes 4 shots of scotch per day to help with her pain control. Last had these 2 weeks ago. - CAD, Hx HTN, Hyperlipidemia per attending. PLAN: - S/P Dobbhoff placement by Dr. Knight at bedside - KUB to confirm placement - If placement not confirmed, remove and will plan for egd with ogt/ngt placement in am - Await liver workup - Abx per ID recommendations - Monitor labs- improving - S/P Cholecystomy tube placement by IR (12/03) - Consider MRCP when more stable if worsening of LFTs - Supportive care - Further recommendations to follow based on results of above - Pt seen and examined by Dr. Knight and myself and this note is written on his behalf (Danica Shipley) Physician Comments Patient seen and examined Agree with above Continue with current supportive care Monitor labs KUB reveals the Dobbhoff in the airways and so it was removed Plan for an EGD tomorrow with NG tube or Dobbhoff placement (Greg Knight MD) Danica Shipley Dec 06, 2016 11:51 Greg Knight MD Dec 06, 2016 20:27
--- NOTE | 2016-12-06 13:12 | HHI.HCPN ---
Reason for visit a. To assist with evaluation and management of symptoms including: dyspnea, pain, and debility b. To assist medical decision maker(s) with: better understanding of current medical conditions; weighing benefits/burdens of medical treatment options; making medical treatment decisions. . Subjective/Interval History Patient remains intubated, mechanically ventilated, and sedated. CRRT initiated yesterday, BUN/creatinine slightly improved today, 36/3.25 from 40/3.88 yesterday. Still with persistent leukocytosis, platelet count continuing to trend down, liver enzymes elevated today compared to yesterday. Advance Directives Living Will: Copy in medical record Health Care Surrogate: Copy in medical record Durable Power of Intelligence Intern: Copy in medical record Advance Directive Specifics Date completed: 01/04/15 . Health Care Surrogate(s): Marco Antonio Mark () Alternate HCS: Alvin Flores or Pippa Flores . Documented care wishes: Standard living will verbiage, patient documented she would not want life prolonging measures if she had a terminal condition or was in a persistent vegetative state. . Objective Vital Signs Date Time Temp Pulse Resp B/P (MAP) Pulse Ox O2 Delivery O2 Flow Rate FiO2 12/06/16 12:36 100 40 12/06/16 10:00 72 18 123/66 (85) 100 132/71 (91) 12/06/16 10:00 72 12/06/16 09:00 72 18 116/74 (88) 100 128/71 (90) 12/06/16 09:00 72 12/06/16 08:00 74 12/06/16 08:00 98.7 74 19 100/72 (81) 100 110/62 (78) 12/06/16 08:00 40 12/06/16 08:00 74 100/72 (81) 110/62 (78) 12/06/16 07:46 100 40 12/06/16 07:00 71 18 104/67 (79) 100 106/61 (76) 12/06/16 07:00 71 12/06/16 06:00 69 12/06/16 05:46 66 127/72 12/06/16 05:46 66 127/72 12/06/16 05:45 40 12/06/16 05:25 98 40 12/06/16 04:35 64 141/81 12/06/16 04:34 64 141/81 12/06/16 04:00 65 129/86 (100) 138/79 (98) 12/06/16 04:00 65 12/06/16 04:00 93.7 65 24 129/86 (100) 138/79 (98) 12/06/16 04:00 50 12/06/16 03:40 99 50 12/06/16 02:00 66 12/06/16 00:31 99 50 12/06/16 00:00 50 12/06/16 00:00 68 12/06/16 00:00 68 140/87 (104) 147/81 (103) 12/06/16 00:00 97.6 68 24 140/87 (104) 147/81 (103) 12/05/16 23:00 72 24 121/77 (92) 100 127/72 (90) 12/05/16 22:00 73 24 116/72 (87) 93 122/70 (87) 12/05/16 22:00 73 12/05/16 21:16 76 109/62 12/05/16 21:16 76 109/62 12/05/16 21:00 79 24 101/66 (78) 100 104/60 (75) 12/05/16 20:51 100 50 12/05/16 20:00 98.1 76 24 105/68 (80) 100 111/61 (78) 17 20:00 50 12/05/16 20:00 76 17 20:00 76 105/68 (80) 111/61 (78) 12/05/16 19:30 95 50 12/05/16 19:00 78 17 18:00 78 12/05/16 17:24 100 80 17 17:00 76 12/05/16 16:00 81 102/65 (77) 103/60 (74) 12/05/16 16:00 80 12/05/16 16:00 40 12/05/16 16:00 97.8 80 24 102/65 (77) 95 103/60 (74) 12/05/16 15:00 83 24 122/72 (89) 100 126/73 (90) 12/05/16 15:00 83 12/05/16 14:00 79 12/05/16 14:00 79 24 91/59 (70) 100 94/51 (65) 12/05/16 13:09 100 35 12/05/16 13:00 78 24 100/67 (78) 100 109/69 (82) 12/05/16 13:00 78 Intake & Output 12/06/16 12/06/16 07:00 19:00 Intake Total 735.1 ml 210 ml Output Total 140 ml Balance 595.1 ml 210 ml Intake IV Total 735.1 ml 200 ml Blood Product IV Normal Saline Flush 10 ml Output Urine Total 60 ml Drainage Total 80 ml Physical Exam CONSTITUTIONAL/GENERAL: This is a critically ill patient, intubated and mechanically ventilated. TUBES/LINES/DRAINS: ETT, CVL LIJ, PIVx 2, Left femoral arterial line, right femoral vas cath, soft wrist restraints SKIN: No jaundice, rashes, or lesions. Ecchymoses on upper extremities. No wounds seen anteriorly. Skin temperature appropriate. Not diaphoretic. CARDIOVASCULAR: Regular rate and rhythm without murmurs, gallops, or rubs. Peripheral pulses symmetric. RESPIRATORY/CHEST: Symmetric, mechanically ventilated. Clear to auscultation. Breath sounds equal bilaterally. No wheezes, rales, or rhonchi. GASTROINTESTINAL: Abdomen soft, nontender, nondistended. Hypoactive bowel sounds present. GENITOURINARY: Without palpable bladder distension. Peterson catheter in place. MUSCULOSKELETAL: Extremities without clubbing, cyanosis, or edema. No mottling or clubbing. NEUROLOGICAL: Sedated. Localizes to noxious stimuli. Does not follow commands. PSYCHIATRIC: Unable to assess secondary to clinical condition. Diagnostic Tests Laboratory Laboratory Tests Test 12/03/16 13:33 12/03/16 17:20 12/03/16 17:35 12/03/16 19:10 Prothrombin Time 18.7 SEC (9.8-11.6) Prothromb Time International Ratio 1.7 RATIO Activated Partial Thromboplast Time 42.2 SEC (24.3-30.1) Fibrinogen 374 mg/dL (227-377) Blood Urea Nitrogen 24 MG/DL (7-18) Creatinine 3.07 MG/DL (0.50-1.00) Random Glucose 120 MG/DL (74-106) Total Protein 5.4 GM/DL (6.4-8.2) Calcium Level 6.9 MG/DL (8.5-10.1) Sodium Level 146 MEQ/L (136-145) Potassium Level 2.7 MEQ/L (3.5-5.1) 3.0 MEQ/L (3.5-5.1) Chloride Level 112 MEQ/L (98-107) Carbon Dioxide Level 17.9 MEQ/L (21.0-32.0) Anion Gap 16 MEQ/L (5-15) Estimat Glomerular Filtration Rate 15 ML/MIN (>89) Protein Corrected Calcium 7.8 MG/DL (8.5-10.1) Iron Level 6 MCG/DL (50-170) Total Iron Binding Capacity 221 MCG/DL (250-450) Percent Iron Saturation 2.7 % (20-50) Ferritin 306 NG/ML (8-252) [id number] 209 mg/dL (100 - 190) Ceruloplasmin 32 mg/dL (18-53) Tumor Marker Alpha Fetoprotein 2.0 NG/ML (0.5-8.0) Anti-Nuclear Antibody Screen NEG (NEG) Anti-Smooth Muscle Antibody Negative (Negative) Hepatitis A IgM Antibody NEGATIVE (NEGATIVE) Hepatitis B Surface Antigen NEGATIVE (NEGATIVE) Hepatitis B Core IgM Antibody NEGATIVE (NEGATIVE) Hepatitis C Antibody NEGATIVE (NEGATIVE) Blood Gas Puncture Site ART LINE Blood Gas Patient Temperature 98.6 Blood Gas HCO3 14 mmol/L (22-26) Blood Gas Base Excess -10.4 mmol/L (-2-2) Blood Gas Oxygen Saturation 94 % (90-100) Arterial Blood pH 7.34 (7.380-7.420) Arterial Blood Partial Pressure CO2 27 mmHg (38-42) Arterial Blood Partial Pressure O2 87 mmHg (61-120) Arterial Blood Oxygen Content 13.6 Vol % (12.0-20.0) Arterial Blood Carboxyhemoglobin 1.4 % (0-4) Arterial Blood Methemoglobin 1.0 % (0-2) Blood Gas Hemoglobin 10.1 G/DL (12.0-16.0) Oxygen Delivery Device VENTILATOR Blood Gas Ventilator Setting PRV/AC Blood Gas Inspired Oxygen 50 % Test 12/04/16 04:15 12/04/16 05:06 12/04/16 12:00 12/04/16 21:48 White Blood Count 14.9 TH/MM3 (4.0-11.0) 16.2 TH/MM3 (4.0-11.0) Red Blood Count 3.46 MIL/MM3 (4.00-5.30) 3.42 MIL/MM3 (4.00-5.30) Hemoglobin 10.6 GM/DL (11.6-15.3) 10.4 GM/DL (11.6-15.3) Hematocrit 31.2 % (35.0-46.0) 30.3 % (35.0-46.0) Mean Corpuscular Volume 90.2 FL (80.0-100.0) 88.4 FL (80.0-100.0) Mean Corpuscular Hemoglobin 30.7 PG (27.0-34.0) 30.3 PG (27.0-34.0) Mean Corpuscular Hemoglobin Concent 34.0 % (32.0-36.0) 34.2 % (32.0-36.0) Red Cell Distribution Width 15.5 % (11.6-17.2) 15.3 % (11.6-17.2) Platelet Count 51 TH/MM3 (150-450) 57 TH/MM3 (150-450) Mean Platelet Volume 10.7 FL (7.0-11.0) 10.7 FL (7.0-11.0) Neutrophils (%) (Auto) 68.9 % (16.0-70.0) Lymphocytes (%) (Auto) 9.3 % (9.0-44.0) Monocytes (%) (Auto) 4.0 % (0.0-8.0) Eosinophils (%) (Auto) 17.6 % (0.0-4.0) Basophils (%) (Auto) 0.2 % (0.0-2.0) Neutrophils # (Auto) 10.3 TH/MM3 (1.8-7.7) Lymphocytes # (Auto) 1.4 TH/MM3 (1.0-4.8) Monocytes # (Auto) 0.6 TH/MM3 (0-0.9) Eosinophils # (Auto) 2.6 TH/MM3 (0-0.4) Basophils # (Auto) 0.0 TH/MM3 (0-0.2) CBC Comment AUTO DIFF Differential Total Cells Counted 100 Neutrophils % (Manual) 53 % (16-70) Band Neutrophils % 8 % (0-6) Lymphocytes % 33 % (9-44) Monocytes % 6 % (0-8) Neutrophils # (Manual) 9.1 TH/MM3 (1.8-7.7) Differential Comment FINAL DIFF MANUAL Toxic Vacuolation PRESENT (NONE SEEN) Dohle Bodies PRESENT (NONE SEEN) Platelet Estimate LOW (NORMAL) Platelet Morphology Comment NORMAL (NORMAL) Hooks Cells 2+ (NORMAL) Red Cell Morphology Comment (NORMAL) Prothrombin Time 20.4 SEC (9.8-11.6) Prothromb Time International Ratio 1.8 RATIO Activated Partial Thromboplast Time 50.9 SEC (24.3-30.1) Blood Urea Nitrogen 26 MG/DL (7-18) Creatinine 3.41 MG/DL (0.50-1.00) Random Glucose 84 MG/DL (74-106) Total Protein 5.0 GM/DL (6.4-8.2) Albumin 2.0 GM/DL (3.4-5.0) Calcium Level 6.3 MG/DL (8.5-10.1) Phosphorus Level 1.8 MG/DL (2.5-4.9) Magnesium Level 1.9 MG/DL (1.5-2.5) Alkaline Phosphatase 184 U/L (45-117) Aspartate Amino Transf (AST/SGOT) 300 U/L (15-37) Alanine Aminotransferase (ALT/SGPT) 151 U/L (10-53) Total Bilirubin 4.8 MG/DL (0.2-1.0) Sodium Level 149 MEQ/L (136-145) Potassium Level 4.2 MEQ/L (3.5-5.1) Chloride Level 114 MEQ/L (98-107) Carbon Dioxide Level 17.4 MEQ/L (21.0-32.0) Anion Gap 18 MEQ/L (5-15) Estimat Glomerular Filtration Rate 13 ML/MIN (>89) Protein Corrected Calcium 7.3 MG/DL (8.5-10.1) B-Type Natriuretic Peptide GREATER THAN 5000 PG/ML Random Vancomycin Level 32.5 COMMENT Blood Gas Puncture Site ART LINE ART LINE Blood Gas Patient Temperature 98.6 98.6 Blood Gas HCO3 15 mmol/L (22-26) 17 mmol/L (22-26) Blood Gas Base Excess -9.4 mmol/L (-2-2) -6.0 mmol/L (-2-2) Blood Gas Oxygen Saturation 96 % (90-100) 97 % (90-100) Arterial Blood pH 7.35 (7.380-7.420) 7.44 (7.380-7.420) Arterial Blood Partial Pressure CO2 29 mmHg (38-42) 26 mmHg (38-42) Arterial Blood Partial Pressure O2 129 mmHg (61-120) 141 mmHg (61-120) Arterial Blood Oxygen Content 14.7 Vol % (12.0-20.0) 14.3 Vol % (12.0-20.0) Arterial Blood Carboxyhemoglobin 1.2 % (0-4) 1.1 % (0-4) Arterial Blood Methemoglobin 1.1 % (0-2) 1.2 % (0-2) Blood Gas Hemoglobin 10.7 G/DL (12.0-16.0) 10.3 G/DL (12.0-16.0) Oxygen Delivery Device VENTILATOR VENTILATOR Blood Gas Ventilator Setting PRVC/AC SEE COMMENTS Blood Gas Inspired Oxygen 50 % 50 % Test 12/05/16 00:10 12/05/16 03:48 12/05/16 05:19 12/05/16 13:15 Urine Osmolality 308 MOSM/KG (300-1300) Urine Random Creatinine 54.6 MG/DL Urine Random Sodium 22 MEQ/L White Blood Count 16.3 TH/MM3 (4.0-11.0) Red Blood Count 3.23 MIL/MM3 (4.00-5.30) Hemoglobin 9.9 GM/DL (11.6-15.3) Hematocrit 28.7 % (35.0-46.0) Mean Corpuscular Volume 88.7 FL (80.0-100.0) Mean Corpuscular Hemoglobin 30.7 PG (27.0-34.0) Mean Corpuscular Hemoglobin Concent 34.6 % (32.0-36.0) Red Cell Distribution Width 15.3 % (11.6-17.2) Platelet Count 52 TH/MM3 (150-450) Mean Platelet Volume 10.5 FL (7.0-11.0) CBC Comment AUTO DIFF Differential Total Cells Counted 100 Neutrophils % (Manual) 70 % (16-70) Band Neutrophils % 7 % (0-6) Lymphocytes % 10 % (9-44) Monocytes % 11 % (0-8) Neutrophils # (Manual) 12.9 TH/MM3 (1.8-7.7) Metamyelocytes 2 % (0-1) Differential Comment FINAL DIFF MANUAL Platelet Estimate LOW (NORMAL) Platelet Morphology Comment NORMAL (NORMAL) Blood Urea Nitrogen 36 MG/DL (7-18) 40 MG/DL (7-18) Creatinine 3.79 MG/DL (0.50-1.00) 3.88 MG/DL (0.50-1.00) Random Glucose 208 MG/DL (74-106) 162 MG/DL (74-106) Total Protein 4.8 GM/DL (6.4-8.2) 4.9 GM/DL (6.4-8.2) Albumin 1.6 GM/DL (3.4-5.0) Calcium Level 5.4 MG/DL (8.5-10.1) 6.0 MG/DL (8.5-10.1) Phosphorus Level 1.3 MG/DL (2.5-4.9) Magnesium Level 1.7 MG/DL (1.5-2.5) Alkaline Phosphatase 127 U/L (45-117) Aspartate Amino Transf (AST/SGOT) 464 U/L (15-37) Alanine Aminotransferase (ALT/SGPT) 206 U/L (10-53) Total Bilirubin 4.2 MG/DL (0.2-1.0) Sodium Level 146 MEQ/L (136-145) 146 MEQ/L (136-145) Potassium Level 3.1 MEQ/L (3.5-5.1) 3.4 MEQ/L (3.5-5.1) Chloride Level 105 MEQ/L (98-107) 104 MEQ/L (98-107) Carbon Dioxide Level 28.7 MEQ/L (21.0-32.0) 30.2 MEQ/L (21.0-32.0) Anion Gap 12 MEQ/L (5-15) 12 MEQ/L (5-15) Estimat Glomerular Filtration Rate 12 ML/MIN (>89) 11 ML/MIN (>89) Protein Corrected Calcium 6.4 MG/DL (8.5-10.1) 7.0 MG/DL (8.5-10.1) Random Vancomycin Level 24.0 COMMENT Blood Gas Puncture Site ART LINE Blood Gas Patient Temperature 98.6 Blood Gas HCO3 26 mmol/L (22-26) Blood Gas Base Excess 3.5 mmol/L (-2-2) Blood Gas Oxygen Saturation 97 % (90-100) Arterial Blood pH 7.56 (7.380-7.420) Arterial Blood Partial Pressure CO2 29 mmHg (38-42) Arterial Blood Partial Pressure O2 137 mmHg (61-120) Arterial Blood Oxygen Content 18.0 Vol % (12.0-20.0) Arterial Blood Carboxyhemoglobin 1.3 % (0-4) Arterial Blood Methemoglobin 1.1 % (0-2) Blood Gas Hemoglobin 13.1 G/DL (12.0-16.0) Oxygen Delivery Device VENTILATOR Blood Gas Ventilator Setting [facility]/AC Blood Gas Inspired Oxygen 50 % Test 12/05/16 14:02 12/05/16 15:42 12/06/16 03:06 12/06/16 05:04 Prothrombin Time 14.8 SEC (9.8-11.6) 14.0 SEC (9.8-11.6) Prothromb Time International Ratio 1.3 RATIO 1.3 RATIO Activated Partial Thromboplast Time 41.5 SEC (24.3-30.1) 42.7 SEC (24.3-30.1) Fibrinogen 434 mg/dL (227-377) 392 mg/dL (227-377) White Blood Count 16.3 TH/MM3 (4.0-11.0) Red Blood Count 3.43 MIL/MM3 (4.00-5.30) Hemoglobin 10.4 GM/DL (11.6-15.3) Hematocrit 30.3 % (35.0-46.0) Mean Corpuscular Volume 88.4 FL (80.0-100.0) Mean Corpuscular Hemoglobin 30.2 PG (27.0-34.0) Mean Corpuscular Hemoglobin Concent 34.1 % (32.0-36.0) Red Cell Distribution Width 15.4 % (11.6-17.2) Platelet Count 52 TH/MM3 (150-450) Mean Platelet Volume 10.1 FL (7.0-11.0) CBC Comment AUTO DIFF Differential Total Cells Counted 100 Neutrophils % (Manual) 67 % (16-70) Band Neutrophils % 9 % (0-6) Lymphocytes % 1 % (9-44) Monocytes % 17 % (0-8) Neutrophils # (Manual) 13.4 TH/MM3 (1.8-7.7) Metamyelocytes 6 % (0-1) Nucleated Red Blood Cells 2 /100 WBC (0-0) Differential Comment FINAL DIFF MANUAL Toxic Vacuolation PRESENT (NONE SEEN) Dohle Bodies PRESENT (NONE SEEN) Platelet Estimate LOW (NORMAL) Platelet Morphology Comment NORMAL (NORMAL) Ovalocytes 1+ (NORMAL) Blood Urea Nitrogen 36 MG/DL (7-18) Creatinine 3.25 MG/DL (0.50-1.00) Random Glucose 132 MG/DL (74-106) Total Protein 5.1 GM/DL (6.4-8.2) Albumin 1.6 GM/DL (3.4-5.0) Calcium Level 5.6 MG/DL (8.5-10.1) Phosphorus Level 1.8 MG/DL (2.5-4.9) Magnesium Level 1.5 MG/DL (1.5-2.5) Alkaline Phosphatase 140 U/L (45-117) Aspartate Amino Transf (AST/SGOT) 555 U/L (15-37) Alanine Aminotransferase (ALT/SGPT) 259 U/L (10-53) Total Bilirubin 3.8 MG/DL (0.2-1.0) Sodium Level 145 MEQ/L (136-145) Potassium Level 3.5 MEQ/L (3.5-5.1) Chloride Level 108 MEQ/L (98-107) Carbon Dioxide Level 23.3 MEQ/L (21.0-32.0) Anion Gap 14 MEQ/L (5-15) Estimat Glomerular Filtration Rate 14 ML/MIN (>89) Protein Corrected Calcium 6.4 MG/DL (8.5-10.1) Random Vancomycin Level 18.3 COMMENT Blood Gas Puncture Site ART LINE Blood Gas Patient Temperature 98.6 Blood Gas HCO3 23 mmol/L (22-26) Blood Gas Base Excess 0.6 mmol/L (-2-2) Blood Gas Oxygen Saturation 97 % (90-100) Arterial Blood pH 7.56 (7.380-7.420) Arterial Blood Partial Pressure CO2 26 mmHg (38-42) Arterial Blood Partial Pressure O2 190 mmHg (61-120) Arterial Blood Oxygen Content 14.9 Vol % (12.0-20.0) Arterial Blood Carboxyhemoglobin 1.4 % (0-4) Arterial Blood Methemoglobin 1.0 % (0-2) Blood Gas Hemoglobin 10.6 G/DL (12.0-16.0) Oxygen Delivery Device VENTILATOR Blood Gas Ventilator Setting PRVC/AC Blood Gas Inspired Oxygen 50 % Test 12/06/16 06:38 Blood Gas Puncture Site ART LINE Blood Gas Patient Temperature 98.6 Blood Gas HCO3 23 mmol/L (22-26) Blood Gas Base Excess 0.1 mmol/L (-2-2) Blood Gas Oxygen Saturation 97 % (90-100) Arterial Blood pH 7.50 (7.380-7.420) Arterial Blood Partial Pressure CO2 30 mmHg (38-42) Arterial Blood Partial Pressure O2 138 mmHg (61-120) Arterial Blood Oxygen Content 19.1 Vol % (12.0-20.0) Arterial Blood Carboxyhemoglobin 1.0 % (0-4) Arterial Blood Methemoglobin 1.2 % (0-2) Blood Gas Hemoglobin 13.9 G/DL (12.0-16.0) Oxygen Delivery Device VENTILATOR Blood Gas Ventilator Setting PRVC/AC 18/520/ Blood Gas Inspired Oxygen 40 % Result Diagram: 12/06/16 0306 12/06/16 0306 Microbiology Microbiology Date/Time Source Procedure Growth Status 12/03/16 14:55 Fluid Bile Fluid Gram Stain - Final Resulted 12/03/16 14:55 Body Fluid Culture - Preliminary Group D Enterococcus Resulted Imaging Last 72 hours Impressions Chest X-Ray 12/06/16 0600 Signed Impressions: Service Date/Time: November 03:19 - CONCLUSION: 1. Left lower lobe atelectasis versus pneumonia. 2. Resolving right basilar atelectasis Royal Messer MD Chest X-Ray 12/05/16 0600 Signed Impressions: Service Date/Time: Monday, December 05, 2016 04:32 - CONCLUSION: 1. Cardiomegaly and findings of congestive heart failure. There has been no significant change when compared to the prior exam. Royal Messer MD Chest X-Ray 12/05/16 0000 Signed Impressions: Service Date/Time: Monday, December 05, 2016 16:17 - CONCLUSION: 1. No weighted feeding tube observed on the current study. 2. Unchanged bibasilar infiltrates and small effusions. Nain Sharma Jr., MD Abdomen X-Ray 12/05/16 0000 Signed Impressions: Service Date/Time: Monday, December 05, 2016 13:33 - CONCLUSION: The distal tip of the feeding tube overlies the inferior right chest. Therefore, it is likely in bronchus intermedius or the right middle or lower lobe bronchus. A hiatal hernia is present but based on recent CT is located to the left of midline. Therefore, this feeding tube should be removed and repositioned prior to use. Fermin Acosta MD Chest X-Ray 12/04/16 06 Signed Impressions: Service Date/Time: Sunday, December 04, 2016 04:25 - CONCLUSION: 1. The cardiac silhouette is enlarged in transverse diameter. 2. Bilateral lower lobe atelectasis versus pneumonia. There has been no significant change when compared to the prior exam. Royal Messer MD Abdomen/Pelvis CT 12/04/16 0600 Signed Impressions: Service Date/Time: Sunday, December 04, 2016 09:35 - CONCLUSION: 1. Interval placement of a cholecystostomy tube. 2. Bibasilar consolidation likely related to atelectasis. This is unchanged. 3. Tip of the NG tube in the hiatal hernia. 4. Small volume ascites. 5. No acute abnormality observed. Nain Sharma Jr., MD Assessment and Plan Disease Oriented Problem List: (1) Sepsis (2) Metabolic acidosis (3) Acute cholecystitis (4) Respiratory failure Symptom Scale: (1) Dyspnea (2) Debility (3) Pain Pertinent Non-Medical Issues Psychosocial:Patient is originally from [place], [place], she has been to her for 56 years and has two children. 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 She retired in her early 60s when she began spending half of the year between [place] and [place]. Spiritual: Legal: None known. Ethical issues impacting care:None known. Important Contacts Marco Antonio Flores () [phone] . Prognosis Patient has experienced a physical and functional decline over the past two years. She has suffered from chronic back pain due to scoliosis and has recently drank daily heavily to alleviate the pain. The patient was admitted for sepsis followed by respiratory distress requiring intubation, she has continued to decline and has now progressed into multiorgan failure. She is at an increased risk for complications/setbacks due to her advanced age, multiple comorbidities, and current clinical status. . Code Status: Alternative Code Plan * Legal decision maker: Patient does not have the capacity to make her own health care decisions. It is unclear at this time if she will regain the capacity to make her own health care decisions. Documented HCS is patient's Marco Antonio Flores [phone], alternate HCS are Alvin Flores or Pippa Flores. * CODE STATUS:Alternative code, intubation only. * GOALS: Aggressive short of CPR. Further clarification of goals pending clinical course, it is detailed in patient's living will that she would not want life prolonging measures if she had a terminal condition, end stage condition,or was in a persistent vegetative state. Patient's has verbalized and acknowledged this fact, he stated he is aware that his would not want to be sustained via any life prolonging measures if she was unable to return to the quality of life she was living prior to this hospitalization. * SYMPTOM MANAGEMENT: * --pain: Patient at ongoing risk for pain secondary to intubation, mechanical ventilation, and bedbound status. Patient is currently sedated on versed and fentanyl. No recommendations at this time, further recommendations pending hospital course. * --dyspnea: Patient is intubated and mechanically ventilated, duonebs scheduled q 6hr and q 2hr PRN ordered. No recommendations at this time. * --debility: Secondary to current clinical status, mechanical ventilation, bedbound status. Patient is critically ill at this time and is not a candidate for PT. No recommendations at this time. * Palliative care will continue to follow during hospital course as condition evolves, to assist patient/family/decision-maker with understanding of medical conditions, weighing benefit/burdens of treatment options, for clarification of goals of treatment. Additionally will assist with symptoms of palliative concern. Attestation To help prompt me to consider important information that might be impacting today's encounter and assessment, information from prior notes written by myself or my colleagues may have been "brought forward" into today's note. My signature on this note, however, is an attestation that I personally performed the exam, history, and/or decision-making noted today, and, unless otherwise indicated, the interactions with patient, family, and staff as well as the review of records all occurred today. I also attest that the listed assessment and stated plan reflect my best clinical judgment today based on the combination of historical information, prior notes, and today's exam/ interactions. When time spent is documented, it refers only to time spent today by the signer, or if indicated, combined time spent today by collaborating physician/nurse practitioner. Kallie Miranda Dec 06, 2016 13:12
--- NOTE | 2016-12-06 14:04 | HHI.NPPN ---
Subjective History of Present Illness 71 year old with septic shock, on vasopressors ARF Objective Data Data 12/06/16 12/07/16 19:00 07:00 Intake Total 210 ml Balance 210 ml Intake IV Total 200 ml Blood Product IV Normal Saline Flush 10 ml Vital Signs Date Time Temp Pulse Resp B/P (MAP) Pulse Ox O2 Delivery O2 Flow Rate FiO2 12/06/16 12:36 100 40 12/06/16 10:00 72 18 123/66 (85) 100 132/71 (91) 12/06/16 10:00 72 12/06/16 09:00 72 18 116/74 (88) 100 128/71 (90) 12/06/16 09:00 72 12/06/16 08:00 74 12/06/16 08:00 98.7 74 19 100/72 (81) 100 110/62 (78) 12/06/16 08:00 40 12/06/16 08:00 74 100/72 (81) 110/62 (78) 12/06/16 07:46 100 40 12/06/16 07:00 71 18 104/67 (79) 100 106/61 (76) 12/06/16 07:00 71 12/06/16 06:00 69 12/06/16 05:46 66 127/72 12/06/16 05:46 66 127/72 12/06/16 05:45 40 12/06/16 05:25 98 40 12/06/16 04:35 64 141/81 12/06/16 04:34 64 141/81 12/06/16 04:00 65 129/86 (100) 138/79 (98) 12/06/16 04:00 65 12/06/16 04:00 93.7 65 24 129/86 (100) 138/79 (98) 12/06/16 04:00 50 12/06/16 03:40 99 50 12/06/16 02:00 66 12/06/16 00:31 99 50 12/06/16 00:00 50 12/06/16 00:00 68 12/06/16 00:00 68 140/87 (104) 147/81 (103) 12/06/16 00:00 97.6 68 24 140/87 (104) 147/81 (103) 12/05/16 23:00 72 24 121/77 (92) 100 127/72 (90) 12/05/16 22:00 73 24 116/72 (87) 93 122/70 (87) 12/05/16 22:00 73 12/05/16 21:16 76 109/62 12/05/16 21:16 76 109/62 12/05/16 21:00 79 24 101/66 (78) 100 104/60 (75) 12/05/16 20:51 100 50 12/05/16 20:00 98.1 76 24 105/68 (80) 100 111/61 (78) 12/05/16 20:00 50 12/05/16 20:00 76 12/05/16 20:00 76 105/68 (80) 111/61 (78) 12/05/16 19:30 95 50 12/05/16 19:00 78 12/05/16 18:00 78 12/05/16 17:24 100 80 12/05/16 17:00 76 12/05/16 16:00 81 102/65 (77) 103/60 (74) 12/05/16 16:00 80 12/05/16 16:00 40 12/05/16 16:00 97.8 80 24 102/65 (77) 95 103/60 (74) 12/05/16 15:00 83 24 122/72 (89) 100 126/73 (90) 12/05/16 15:00 83 -: 12/06/16 0306 12/06/16 0306 Physical Exam General Appearance: Well Developed Neck Neck Exam: Neck Supple Pulmonary Resp Exam: Clear Bilaterally Cardiology CV Exam: Regular Gastrointestinal/Abdomen GI Exam: Soft, Non-Distended Integumentary Skin Exam: Clear Extremeties Extremities Exam: Trace Edema Assessment/Plan Problem List: (1) Acute kidney injury ICD Codes: N17.9 - Acute kidney failure, unspecified Status: Acute Plan: Patient has septic shock and acute tubular necrosis Continue supportive care with IV fluids and antibiotics and vasopressors CRRT ordered Patient seen today tolerating CVVHD continue to monitor replace phosphorus, potassium, calcium has epistaxis hematology following ? DIC /Thrombocytopenia KPO4/Ca replacement Discussed with family and daughter in room (2) Acute cholecystitis ICD Codes: K81.0 - Acute cholecystitis Plan: Status post cholecystostomy (3) Sepsis ICD Codes: A41.9 - Sepsis, unspecified organism Status: Acute Plan: On antibiotics Problem Qualifiers (1) Sepsis: Qualified Codes: A41.9 - Sepsis, unspecified organism Myrtle Carlos MD Dec 06, 2016 14:04
[2016-12-06 15:14] LABS: HEPARIN INDUCED PLATELET AB NEGATIVE (NEGATIVE)
[2016-12-06] MEDS ORDERED: POTASSIUM PHOSPHATE INJ 30 MMOL in SODIUM CHLOR 0.9% 250 ML INJ 250 ML IV ONE (16:00)
[2016-12-06] MEDS ORDERED: CALCIUM GLUCONATE INJ 1 GM in DEXTROSE 5% IN WATER 100ML INJ 100 ML IV ONE ×2 (16:00)
--- NOTE | 2016-12-06 17:16 | RADRPT ---
EXAM DATE/TIME: 12/06/2016 16:24 [facility] COMPARISON: ABDOMEN SINGLE VIEW, December 05, 2016, 13:33. INDICATIONS : Confirm dobbhoff placement. MEDICAL HISTORY : Cardiovascular disease. Hypercholesterolemia. Hypertension. [place] SURGICAL HISTORY : Cholecystectomy. ENCOUNTER: Subsequent ACUITY: 1 day PAIN SCORE: Non-responsive. LOCATION: Abdomen FINDINGS: Single view of the abdomen demonstrates feeding tube distal tip overlying the right lower lung zone. There is severe thoracic and lumbar scoliosis. There is stable opacity at the left lung base obscurin g the left hemidiaphragm. CONCLUSION: Feeding tube distal tip overlies the right lower lung zone and is possibly within the airway. Therefo re, suggest repositioning. Fermin Acosta MD on December 06, 2016 at 17:13 Board Certified Radiologist. This report was verified electronically.
--- NOTE | 2016-12-06 17:16 | RADRPT ---
EXAM DATE/TIME: 12/06/2016 16:24 [facility] COMPARISON: ABDOMEN SINGLE VIEW, December 05, 2016, 13:33. INDICATIONS : Confirm dobbhoff placement. MEDICAL HISTORY : Cardiovascular disease. Hypercholesterolemia. Hypertension. [place] SURGICAL HISTORY : Cholecystectomy. ENCOUNTER: Subsequent ACUITY: 1 day PAIN SCORE: Non-responsive. LOCATION: Abdomen FINDINGS: Single view of the abdomen demonstrates feeding tube distal tip overlying the right lower lung zone. There is severe thoracic and lumbar scoliosis. There is stable opacity at the left lung base obscurin g the left hemidiaphragm. CONCLUSION: Feeding tube distal tip overlies the right lower lung zone and is possibly within the airway. Therefo re, suggest repositioning. Fermin Acosta MD on December 06, 2016 at 17:13 Board Certified Radiologist. This report was verified electronically.
--- NOTE | 2016-12-06 17:16 | RADRPT ---
EXAM DATE/TIME: 12/06/2016 16:24 [facility] COMPARISON: ABDOMEN SINGLE VIEW, December 05, 2016, 13:33. INDICATIONS : Confirm dobbhoff placement. MEDICAL HISTORY : Cardiovascular disease. Hypercholesterolemia. Hypertension. [place] SURGICAL HISTORY : Cholecystectomy. ENCOUNTER: Subsequent ACUITY: 1 day PAIN SCORE: Non-responsive. LOCATION: Abdomen FINDINGS: Single view of the abdomen demonstrates feeding tube distal tip overlying the right lower lung zone. There is severe thoracic and lumbar scoliosis. There is stable opacity at the left lung base obscurin g the left hemidiaphragm. CONCLUSION: Feeding tube distal tip overlies the right lower lung zone and is possibly within the airway. Therefo re, suggest repositioning. Fermin Acosta MD on December 06, 2016 at 17:13 Board Certified Radiologist. This report was verified electronically.
[2016-12-06] MEDS: MICAFUNGIN INJ 100 MG in SODIUM CHLORIDE 0.9% INJ 100 ML IV SCH (17:45)
[2016-12-06] MEDS ORDERED: ALTEPLASE RECOMBINANT 2 MG VIAL IV FLUSH ONE (18:30)
--- NOTE | 2016-12-06 18:53 | HHI.CCPN ---
Subjective Remarks/Hospital Course This is a 71-year-old female presents to the ED via EMS for evaluation of fever , shortness breath, vomiting, diarrhea, abdominal pain She reports that she's been short of breath for the past 2 weeks, but has progressed in the past 2 days. Patient has been seeing a industrial safety and health technician for her shortness of breath, is not on home oxygen. The patient reported she has a history of smoking. She is also complaining of abdominal pain that started 2 days ago with vomiting and diarrhea. Patient has severe tenderness to mild palpation. She has history of NE. She received 500 mL normal saline IV bolus, and Zofran 4 mg IV. Critical care medicine was consulted. Subjective: 12/03: Tmax 100.9. Last evening the patient was noted to have significant respiratory decompensation with requirement for emergent intubation. The patient subsequently became hemodynamically unstable requiring vasopressor support. Patient is lightly sedated, and continues to have abdominal pain, and hypoactive bowel sounds, GI has been consulted. HIDA scan previously scheduled for this morning, after discussion with Dr Goodrich , plan for cholecystostomy tube placement by IR. Ultrasound liver showed no biliary duct distention but notable thickened gallbladder wall. 12/04: Tmax 100.4. Patient continues with severe metabolic acidosis, sodium bicarbonate infusion increased to 150 cc/hour yesterday afternoon. Antibiotics were expanded yesterday with addition of Micafungin and Diflucan. Blood cultures resulted with Enterobacter, Klebsiella pneumoniae and Escherichia coli. ID consulted recommendations appreciated. Patient is status post placement of percutaneous cholecystostomy tube . Patient now icteric, but LFTs are trending down. Records obtained from primary care physician with cardiology reports from earlier in the year, patient with noted pulmonary hypertension and NYHA class III. In-hospital echo pending. Patient continues on 3 pressors to maintain blood pressure. 12/05: Patient has been weaned off of vasopressor continues on to agents Gurinder- Synephrine, norepinephrine at low doses. Patient noted to still be thrombocytopenic platelet count decreased today HIT panel pending. INR remains elevated no active signs of bleeding liver function enzymes remain elevated. No urine output over the last 12 hours nephrology following discussion with for possible hemodialysis, will await nephrology recommendations. Sodium bicarbonate infusion discontinued. Patient remains alert GCS 11 T. 12/06: Afebrile. The patient continues on CRRT initiated last night, tolerating it well patient continues only on phenylephrine infusion to maintain MAP. The patient received 2 units of FFP per hematology/oncology recommendations. Plan for evaluation and placement for NG tube placement director instructional material. Objective Vital Signs Date Time Temp Pulse Resp B/P (MAP) Pulse Ox O2 Delivery O2 Flow Rate FiO2 12/06/16 18:00 69 18 136/86 (103) 100 144/81 (102) 12/06/16 16:00 97.4 12/06/16 16:00 40 12/04/16 20:41 Ventilator 12/02/16 21:32 15.00 Intake and Output 12/06/16 12/06/16 12/07/16 08:00 16:00 00:00 Intake Total 435.1 ml 569 ml 750 ml Output Total 140 ml 107 ml Balance 295.1 ml 569 ml 643 ml Result Diagram: 12/06/16 0306 12/06/16 0306 Other Results Laboratory Tests Test 12/06/16 05:04 12/06/16 06:38 Blood Gas Puncture Site ART LINE ART LINE Blood Gas Patient Temperature 98.6 98.6 Blood Gas HCO3 23 mmol/L (22-26) 23 mmol/L (22-26) Blood Gas Base Excess 0.6 mmol/L (-2-2) 0.1 mmol/L (-2-2) Blood Gas Oxygen Saturation 97 % (90-100) 97 % (90-100) Arterial Blood pH 7.56 (7.380-7.420) 7.50 (7.380-7.420) Arterial Blood Partial Pressure CO2 26 mmHg (38-42) 30 mmHg (38-42) Arterial Blood Partial Pressure O2 190 mmHg (61-120) 138 mmHg (61-120) Arterial Blood Oxygen Content 14.9 Vol % (12.0-20.0) 19.1 Vol % (12.0-20.0) Arterial Blood Carboxyhemoglobin 1.4 % (0-4) 1.0 % (0-4) Arterial Blood Methemoglobin 1.0 % (0-2) 1.2 % (0-2) Blood Gas Hemoglobin 10.6 G/DL (12.0-16.0) 13.9 G/DL (12.0-16.0) Oxygen Delivery Device VENTILATOR VENTILATOR Blood Gas Ventilator Setting PRVC/AC PRVC/AC 18/520/ Blood Gas Inspired Oxygen 50 % 40 % Imaging Last Impressions Chest X-Ray 12/05/16 0600 Signed Impressions: Service Date/Time: Monday, December 05, 2016 04:32 - CONCLUSION: 1. Cardiomegaly and findings of congestive heart failure. There has been no significant change when compared to the prior exam. Royal Messer MD Abdomen/Pelvis CT 12/04/16 0600 Signed Impressions: Service Date/Time: Sunday, December 04, 2016 09:35 - CONCLUSION: 1. Interval placement of a cholecystostomy tube. 2. Bibasilar consolidation likely related to atelectasis. This is unchanged. 3. Tip of the NG tube in the hiatal hernia. 4. Small volume ascites. 5. No acute abnormality observed. Nain Sharma Jr., MD Percutaneous Cholangiogram 12/03/16 0000 Signed Impressions: Service Date/Time: Saturday, December 03, 2016 14:31 - CONCLUSION: Uncomplicated percutaneous cholecystostomy as above. Nain Sharma Jr., MD Liver Ultrasound 12/02/16 0000 Signed Impressions: Service Date/Time: Friday, December 02, 2016 19:12 - CONCLUSION: 1. Cholelithiasis with wall thickening and trace pericholecystic fluid. 2. No evidence of biliary duct distention. 3. No other significant abnormality. Jak Hughes MD Last 24 hours Impressions Chest X-Ray 12/02/16 2305 Signed Impressions: Service Date/Time: Friday, December 02, 2016 23:12 - CONCLUSION: 1. Satisfactory position of endotracheal tube as above. 2. Uncomplicated line placement. No evidence of pneumothorax. Royal Messer MD Chest X-Ray 12/02/16 1217 Signed Impressions: Service Date/Time: Friday, December 02, 2016 12:56 - CONCLUSION: Cardiomegaly. Left lower lobe atelectasis versus pneumonia. Royal Messer MD Objective Remarks Infusions: Versed 2 mg/hour Fentanyl 100 mugs Gurinder-Synephrine 15 mcgs/min GENERAL: Critically ill appearing appropriately stated age female intubated and sedated SKIN: Warm and dry. Jaundiced appearing HEAD: Atraumatic. Normocephalic. EYES: Pupils equal and round. scleral icterus. No injection or drainage. Extraocular movements intact ENT: No nasal bleeding or discharge. Mucous membranes pink and moist. Orotracheally intubated NECK: Trachea midline. No JVD. CARDIOVASCULAR: Normal rate, regular rhythm. Telemetry sinus rhythm RESPIRATORY: No accessory muscle use. Clear to auscultation. Breath sounds equal bilaterally. GASTROINTESTINAL: Abdomen soft,nondistended, tender to palpation. No guarding. MUSCULOSKELETAL: Extremities without clubbing, cyanosis, or edema. No obvious deformities. Right groin Vas-Cath site soft no erythema/drainage NEUROLOGICAL: RASS -2. No gross focal/sensory deficits. Follows commands in all 4 extremities. Procedures 12/02-abdominal ultrasound 12/03- percutaneous cholecystostomy tube placement 12/05-patient of CRRT Date of Insertion: Dec 02, 2016 Line: Central Venous Catheter Side: Left Location: Femoral A/P Assessment and Plan ASSESSMENT This is a critically ill-appearing 71-year-old female in moderate distress with severe abdominal pain presenting with art hiatal hernia and diverticulitis with septic shock ,cardiogenic shock, multisystem organ dysfunction, requiring aggressive vasopressor support. Now with acute renal failure currently on CRRT .Guarded prognosis. Abdominal pain Hiatal hernia Diverticulitis Cholelithiasis with cholecystitis Transaminitis Nausea Hyperlipidemia Hypertension History of NE Coronary artery disease-S/P angioplasty 2 History of systolic CHF Acute hypoxemic respiratory failure Probable community-acquired pneumonia Hypokalemia Alcohol use disorder Elevated creatinine Pancytopenia Transaminitis Acute renal failure Multisystem organ failure secondary to septic shock Acute decompensated systolic heart failure Coagulopathy Bandemia Persistent leukocytosis PLAN Plan by systems: Neurologic: Neurochecks per ICU protocol Fentanyl and Versed infusions for ventilator synchrony Monitor for signs of alcohol withdrawal Daily sedation vacation-patient remains GCS 11 T Seizure precautions Tylenol 650 mg every 6 hours when necessary for temp greater than 101 Thiamine , folate and MVI Respiratory: Maintain O2 sat greater than 92% Bronchodilators 36 hours scheduled, every 2 hours PRN 12/02-intubation 7.5 ETT Ventilator bundle 12/05- bicarbonate infusion discontinued Chest [id number] right basilar opacity, left lower lobe pneumonia versus atelectasis, small left pleural effusion Cardiovascular: Initial troponin 0.07->0.11->0.49. Possibly secondary to acute Kidney injury, and low-flow cardiac output state 12/04 echo results-EF 50% Telemetry showing sinus rhythm Patient's being seen regularly by bottom saw operator in [place] , Shanda Hall MD , obtain cardiology records regarding function Echo 10/03/15 per cardiology medical records(CT)-normal LV function,EF 56%, mild septal LVH, mild TR, mild PAH Patient's home meds include ASA 81mg, Metoprolol 50 mg ER (recently discontinued secondary to hypotension by bottom saw operator 3 weeks ago) will not restart secondary to hemodynamic instability, Rosvustatin at this time will not continue secondary to elevated LFT's continue to trend. aspirin 81 mg- held NYHA classification III-per previous records Lasix 20mg/day-on hold secondary to hemodynamic instability Flowtrac monitoring- CO ranging 4.4-4.8 Renal: Last 24 hours urinary output- 325cc Avoid nephrotoxins, creatinine 2.4-> 2.6-> 3.4 today, omeprazole is continue Follow-up urine sodium, urine creatinine - FeNa 1.75 , no eosinophils Nephrology following-Dr. Carlos, patient may need hemodialysis await recommendations Review of medical records obtained from PCP baseline creatinine 1.3,PCP notes reveal patient had renal insufficiency CKD Stage 3 in the past Sodium bicarbonate infusion discontinued 12/05 12/05 initiation of CRRT -- Strict I/Os FEN/GI: Replete electrolytes Monitor BMP 12/05 F/U GI recommendations -insert Dobbhoff tube, or NG tube and begin trickle feeds 12/02 CT abdomen pelvis-diverticulosis without diverticulitis, large hiatal hernia, cholelithiasis, no acute process ultrasound abdomen-no biliary duct dilatation, cholelithiasis with cholecystitis trace pericholecystic fluid 12/03- percutaneous cholecystostomy drain AST 300-> 555 ALT 151> 259 Alk Phos 140-trending upward, percutaneous cholecystostomy draining (Bile- Enterococcus faecalis) Consult GI, Consult General Surgery- concern for possible ischemia with low cardiac output state, no melena or hematemesis-currently not a surgical candidate Hold statin in the setting of elevated LFTs Repeat CT abd /pelvis -pending 12/04 BNP > 5000 -in the setting of acute renal failure, septic shock, and decompensated heart failure Heme/ID: ID consulted-Dr. Ramos, and a box per ID recommendation 12/03 blood cultures-Enterobacter, Klebsiella pneumoniae, Escherichia coli 12/03 Legionella, influenza , pneumococcal antigen- negative 12/03 sputum culture-E coli 12/03: Bile fluid-Enterococcus faecalis Hematology oncology following INR 1.8-no active signs of bleeding 12/05 F/U HIT panel 12/06 2 units of FFP per hematology recommendation Endocrine: Glucose monitoring per ICU protocol -- SSI Prophylaxis: GI Prophylaxis Famotidine DVT Prophylaxis -- SCDs Heparin 5000 SQ BID (on Hold) Lines: PIV's x 2. Central line left IJ, Art line left femoral Dispo: This patient remains critically ill with one or more organ systems which are or may become a threat to life. I have spent in excess of 49 minutes discontinuously in the care and management of this patient. This time is exclusive of procedures, and includes, but is not limited to, evaluation of the patient, review of the medical record, discussions with family, consultants, nursing staff, or respiratory therapy, and documentation in the medical record. 12/04: Discussed case with , updated him on patient's medical status. All questions answered. Living will obtained. Palliative care consult initiated for clarification. 12/05: Patient alternate CODE STATUS no shocks no drugs no CPR, living will placed in chart. Aggressive measures continue, possible hemodialysis. Physician Quiana Haywood MD Dec 06, 2016 18:52
[2016-12-06 23:51] LABS: MITOCHONDRIAL ABS LESS THAN 20.0 U (<=20.0)
[2016-12-07] VITALS (24 sets, daily range): BP systolic 103–140; BP diastolic 63–79; PULSE 67–79; RESP 18–23; TEMP 97–98.7; O2SAT 89–100
[2016-12-07] MEDS: HYDROCORTISONE SOD SUCCINATE 100 MG VIAL IV PUSH SCH ×3 (02:12→17:00)
[2016-12-07] MEDS: CEFEPIME INJ 2,000 MG in SODIUM CHLORIDE 0.9% INJ 100 ML IV SCH ×2 (02:13→14:24)
[2016-12-07] MEDS: metroNIDAZOLE 500 MG INJ 100 ML IV SCH ×2 (02:54→09:13)
[2016-12-07] MEDS: RESP: ALBUTEROL 2.5 MG/IPRATROPIUM 0.5 MG NEB (SCH) NEB ×2 (04:00→07:34)
[2016-12-07] MEDS: CHLORHEXIDINE GLUCONATE 2 % 1 PACK (2 CLOTHS) TOP SCH (04:00)
[2016-12-07 04:41] LABS: HEMATOCRIT 24.4 % (35.0-46.0); HEMOGLOBIN 8.3 GM/DL (11.6-15.3); MEAN CELL VOLUME 89.6 FL (80.0-100.0); MEAN CORPUSCULAR HEMOGLOBIN 30.4 PG (27.0-34.0); MEAN PLATELET VOLUME 9.1 FL (7.0-11.0); PLATELET COUNT 32 TH/MM3 (150-450); RED BLOOD COUNT 2.72 MIL/MM3 (4.00-5.30); RED CELL DISTRIBUTION WIDTH 15.6 % (11.6-17.2); WHITE BLOOD COUNT 19.9 TH/MM3 (4.0-11.0)
[2016-12-07 05:09] LABS: ALBUMIN 1.9 GM/DL (3.4-5.0); BICARBONATE 20.4 MEQ/L (21.0-32.0); CREATININE 2.49 MG/DL (0.50-1.00); MAGNESIUM 1.5 MG/DL (1.5-2.5); PHOSPHORUS 3.2 MG/DL (2.5-4.9); RANDOM VANCOMYCIN 14.1 COMMENT; TOTAL BILIRUBIN ADULT 3.2 MG/DL (0.2-1.0)
[2016-12-07 05:12] LABS: BANDS 3 % (0-6); LYMPHOCYTES 4 % (9-44); MONOCYTES 7 % (0-8); NEUTROPHIL # MANUAL DIFF 17.7 TH/MM3 (1.8-7.7); POLYS (SEG NEUTROPHILS) 86 % (16-70)
--- NOTE | 2016-12-07 06:08 | RADRPT ---
EXAM DATE/TIME: 12/07/2016 04:20 [facility] COMPARISON: CHEST SINGLE AP, December 06, 2016, 3:19. INDICATIONS : Evaluate for pnuemonia MEDICAL HISTORY : Cardiovascular disease. Hypertension Hypercholesterolemia. [place] SURGICAL HISTORY : Cholecystectomy. ENCOUNTER: Subsequent ACUITY: weeks PAIN SCORE: Non-responsive. LOCATION: Bilateral chest FINDINGS: A single view of the chest demonstrates cardiomegaly with interstitial edema and bibasilar densities. Endotracheal tube and left jugular central line are stable in position. Osseous structures are inta ct. CONCLUSION: 1. Bibasilar consolidation greater on the left, stable. 2. Interstitial edema. Sourav Arreola MD on December 07, 2016 at 6:05 Board Certified Radiologist. This report was verified electronically.
--- NOTE | 2016-12-07 06:08 | RADRPT ---
EXAM DATE/TIME: 12/07/2016 04:20 [facility] COMPARISON: CHEST SINGLE AP, December 06, 2016, 3:19. INDICATIONS : Evaluate for pnuemonia MEDICAL HISTORY : Cardiovascular disease. Hypertension Hypercholesterolemia. [place] SURGICAL HISTORY : Cholecystectomy. ENCOUNTER: Subsequent ACUITY: weeks PAIN SCORE: Non-responsive. LOCATION: Bilateral chest FINDINGS: A single view of the chest demonstrates cardiomegaly with interstitial edema and bibasilar densities. Endotracheal tube and left jugular central line are stable in position. Osseous structures are inta ct. CONCLUSION: 1. Bibasilar consolidation greater on the left, stable. 2. Interstitial edema. Sourav Arreola MD on December 07, 2016 at 6:05 Board Certified Radiologist. This report was verified electronically.
--- NOTE | 2016-12-07 06:08 | RADRPT ---
EXAM DATE/TIME: 12/07/2016 04:20 [facility] COMPARISON: CHEST SINGLE AP, December 06, 2016, 3:19. INDICATIONS : Evaluate for pnuemonia MEDICAL HISTORY : Cardiovascular disease. Hypertension Hypercholesterolemia. [place] SURGICAL HISTORY : Cholecystectomy. ENCOUNTER: Subsequent ACUITY: weeks PAIN SCORE: Non-responsive. LOCATION: Bilateral chest FINDINGS: A single view of the chest demonstrates cardiomegaly with interstitial edema and bibasilar densities. Endotracheal tube and left jugular central line are stable in position. Osseous structures are inta ct. CONCLUSION: 1. Bibasilar consolidation greater on the left, stable. 2. Interstitial edema. Sourav Arreola MD on December 07, 2016 at 6:05 Board Certified Radiologist. This report was verified electronically.
[2016-12-07] MEDS: INSULIN NovoLIN REGULAR SUPPLEMENTAL SCALE SQ SCH ×3 (08:00→21:00)
[2016-12-07] MEDS: FAMOTIDINE 20 MG/2 ML VIAL IV PUSH SCH (08:42)
[2016-12-07] MEDS: SODIUM CHLORIDE 0.9% FLUSH 10 ML FLUSH IV FLUSH SCH ×3 (08:42→21:21)
[2016-12-07] MEDS: CHLORHEXIDINE 0.12% (ORAL KIT) 15 ML CUP MT SCH ×2 (08:44→21:21)
[2016-12-07] MEDS: DOCUSATE SODIUM 50 MG/SENNA 8.6 MG TAB PO SCH ×2 (09:00→21:00)
[2016-12-07] MEDS: MULTIVITAMIN INJ 10 ML, FOLIC ACID INJ 1 MG in SODIUM CHLORID 0.9% 500 ML INJ 500 ML IV SCH (09:18)
[2016-12-07] MEDS ORDERED: VANCOMYCIN 1,500 MG/NS 500 ML IV ONE ×2 (10:00)
--- NOTE | 2016-12-07 10:49 | HHI.NPPN ---
Subjective History of Present Illness 71 year old with septic shock, ARF Additional Remarks off vasopressors Objective Data Data 12/07/16 12/08/16 19:00 07:00 Intake Total 100 ml Balance 100 ml Intake IV Total 100 ml Vital Signs Date Time Temp Pulse Resp B/P (MAP) Pulse Ox O2 Delivery O2 Flow Rate FiO2 12/07/16 08:00 35 12/07/16 08:00 97.3 74 18 113/66 (82) 96 12/07/16 08:00 72 12/07/16 07:37 100 35 12/07/16 06:00 67 21 107/69 (82) 100 114/64 (81) 12/07/16 06:00 67 107/69 (82) 114/64 (81) 12/07/16 06:00 67 12/07/16 04:00 67 103/67 (79) 110/63 (79) 12/07/16 04:00 67 12/07/16 04:00 100 40 12/07/16 04:00 40 12/07/16 04:00 98.1 67 20 103/67 (79) 99 110/63 (79) 12/07/16 02:00 72 12/07/16 01:00 74 18 131/79 (96) 100 131/73 (92) 12/07/16 00:16 100 40 12/07/16 00:00 98.7 78 19 106/67 (80) 117/66 (83) 12/07/16 00:00 40 12/07/16 00:00 68 117/66 (83) 106/67 (80) 12/07/16 00:00 78 12/06/16 23:00 80 18 99/63 (75) 107/64 (78) 12/06/16 22:00 81 12/06/16 22:00 81 18 97/61 (73) 100 108/62 (77) 12/06/16 21:35 100 40 12/06/16 21:00 75 19 107/69 (82) 100 119/68 (85) 12/06/16 20:30 74 19 108/69 (82) 100 119/69 (86) 12/06/16 20:00 68 117/69 (85) 106/67 (80) 12/06/16 20:00 97.2 76 18 106/67 (80) 100 117/69 (85) 12/06/16 20:00 76 12/06/16 20:00 40 12/06/16 19:30 100 40 12/06/16 18:00 69 18 136/86 (103) 100 144/81 (102) 12/06/16 18:00 69 12/06/16 17:00 82 12/06/16 17:00 82 18 131/81 (98) 100 140/77 (98) 12/06/16 16:00 97.4 68 18 125/76 (92) 130/71 (90) 12/06/16 16:00 40 12/06/16 16:00 68 12/06/16 16:00 68 125/76 (92) 130/71 (90) 12/06/16 15:00 72 18 115/71 (86) 100 120/66 (84) 12/06/16 15:00 72 12/06/16 14:06 97.4 76 18 120/66 100 12/06/16 14:00 75 18 115/73 (87) 100 125/71 (89) 12/06/16 14:00 75 12/06/16 13:00 69 18 130/86 (101) 100 141/79 (99) 12/06/16 13:00 69 12/06/16 12:36 100 40 12/06/16 12:00 98.7 67 18 140/81 (100) 100 148/83 (104) 12/06/16 12:00 67 12/06/16 12:00 67 140/81 (100) 148/83 (104) 12/06/16 12:00 40 12/06/16 11:00 68 18 141/79 (99) 100 12/06/16 11:00 68 -: 12/07/16 0412 12/07/16 0412 Physical Exam General Appearance: Well Developed Neck Neck Exam: Neck Supple Pulmonary Resp Exam: Clear Bilaterally Cardiology CV Exam: Regular Gastrointestinal/Abdomen GI Exam: Soft, Non-Distended Integumentary Skin Exam: Clear Extremeties Extremities Exam: Trace Edema Assessment/Plan Problem List: (1) Acute kidney injury ICD Codes: N17.9 - Acute kidney failure, unspecified Status: Acute Plan: Patient has septic shock and acute tubular necrosis making small amount of urine, Continue supportive care with IV fluids and antibiotics and vasopressors CRRT clotted off at 5 am well dialyzed, off pressors BP stable Platelets low Hematology following replace Calcium next HD in am discussed with family transition to regular dialysis by am on Vanco/Micafungin/Cefepime/metronidazole (2) Acute cholecystitis ICD Codes: K81.0 - Acute cholecystitis Plan: Status post cholecystostomy (3) Sepsis ICD Codes: A41.9 - Sepsis, unspecified organism Status: Acute Plan: On antibiotics Problem Qualifiers (1) Sepsis: Qualified Codes: A41.9 - Sepsis, unspecified organism Myrtle Carlos MD Dec 07, 2016 10:49
[2016-12-07] MEDS ORDERED: SODIUM CHLOR 0.9% 1000 ML INJ 1,000 ML OTHER PRN (10:56)
[2016-12-07] MEDS ORDERED: SODIUM CHLOR 0.9% 1000 ML INJ 1,000 ML IV PRN (10:56)
[2016-12-07] MEDS ORDERED: HEPARIN SODIUM - IV 10,000 UNITS/10 ML VIAL PRN (11:00)
[2016-12-07] MEDS ORDERED: cloNIDine HCL 0.1 MG TAB PO PRN (11:00)
[2016-12-07] MEDS ORDERED: NITROGLYCERIN 0.4 MG SL 25 TABS/BTL SL PRN (11:00)
[2016-12-07] MEDS ORDERED: GELATIN 12 MM/7 MM FOAM TOP PRN (11:00)
[2016-12-07] MEDS ORDERED: ONDANSETRON HCL 4 MG/2 ML VIAL IV PUSH PRN (11:00)
[2016-12-07] MEDS ORDERED: diphenhydrAMINE HCL 25 MG CAP PO PRN (11:00)
[2016-12-07] MEDS ORDERED: ACETAMINOPHEN 325 MG TAB PO PRN (11:00)
[2016-12-07] MEDS ORDERED: SODIUM CHLORIDE 0.9% FLUSH 10 ML FLUSH IV FLUSH PRN (11:00)
[2016-12-07] MEDS ORDERED: MANNITOL 12.5 GM/50 ML VIAL IV PRN (11:00)
--- NOTE | 2016-12-07 11:59 | HHI.HCPN ---
Reason for visit a. To assist with evaluation and management of symptoms including: dyspnea, pain, and debility b. To assist medical decision maker(s) with: better understanding of current medical conditions; weighing benefits/burdens of medical treatment options; making medical treatment decisions. . Subjective/Interval History Patient remains intubated, mechanically ventilated, and sedated. Vasopressors have been successfully weaned off. CRRT now discontinued and patient transitioned to hemodialysis. BUN/creatinine slowly improving, 31/2.49 today, still with persistent leukocytosis WBC up today to 19.9, platelet count continuing to trend down 31 today from 52 yesterday, hemoglobin also decreased to 8.3 from 10.4. Family/friend interactions Bedside conversation with patient's and daughter Pippa. . Advance Directives Living Will: Copy in medical record Health Care Surrogate: Copy in medical record Durable Power of Expanded Duty Dental Assistant: Copy in medical record Advance Directive Specifics Date completed: 01/04/15 . Health Care Surrogate(s): Marco Antonio Mark () Alternate HCS: Alvin Flores or Pippa Flores . Documented care wishes: Standard living will susie, patient documented she would not want life prolonging measures if she had a terminal condition or was in a persistent vegetative state. . Objective Vital Signs Date Time Temp Pulse Resp B/P (MAP) Pulse Ox O2 Delivery O2 Flow Rate FiO2 12/07/16 10:00 72 12/07/16 08:00 35 12/07/16 08:00 97.3 74 18 113/66 (82) 96 12/07/16 08:00 72 12/07/16 07:37 100 35 12/07/16 06:00 67 21 107/69 (82) 100 114/64 (81) 12/07/16 06:00 67 107/69 (82) 114/64 (81) 12/07/16 06:00 67 12/07/16 04:00 67 103/67 (79) 110/63 (79) 12/07/16 04:00 67 12/07/16 04:00 100 40 12/07/16 04:00 40 12/07/16 04:00 98.1 67 20 103/67 (79) 99 110/63 (79) 12/07/16 02:00 72 12/07/16 01:00 74 18 131/79 (96) 100 131/73 (92) 12/07/16 00:16 100 40 12/07/16 00:00 98.7 78 19 106/67 (80) 117/66 (83) 12/07/16 00:00 40 12/07/16 00:00 68 117/66 (83) 106/67 (80) 12/07/16 00:00 78 12/06/16 23:00 80 18 99/63 (75) 107/64 (78) 12/06/16 22:00 81 12/06/16 22:00 81 18 97/61 (73) 100 108/62 (77) 12/06/16 21:35 100 40 12/06/16 21:00 75 19 107/69 (82) 100 119/68 (85) 12/06/16 20:30 74 19 108/69 (82) 100 119/69 (86) 12/06/16 20:00 68 117/69 (85) 106/67 (80) 12/06/16 20:00 97.2 76 18 106/67 (80) 100 117/69 (85) 12/06/16 20:00 76 12/06/16 20:00 40 12/06/16 19:30 100 40 12/06/16 18:00 69 18 136/86 (103) 100 144/81 (102) 12/06/16 18:00 69 12/06/16 17:00 82 12/06/16 17:00 82 18 131/81 (98) 100 140/77 (98) 12/06/16 16:00 97.4 68 18 125/76 (92) 130/71 (90) 12/06/16 16:00 40 12/06/16 16:00 68 12/06/16 16:00 68 125/76 (92) 130/71 (90) 12/06/16 15:00 72 18 115/71 (86) 100 120/66 (84) 12/06/16 15:00 72 12/06/16 14:06 97.4 76 18 120/66 100 12/06/16 14:00 75 18 115/73 (87) 100 125/71 (89) 12/06/16 14:00 75 12/06/16 13:00 69 18 130/86 (101) 100 141/79 (99) 12/06/16 13:00 69 12/06/16 12:36 100 40 12/06/16 12:00 98.7 67 18 140/81 (100) 100 148/83 (104) 12/06/16 12:00 67 12/06/16 12:00 67 140/81 (100) 148/83 (104) 12/06/16 12:00 40 Intake & Output 12/07/16 12/07/16 07:00 19:00 Intake Total 360 ml 100 ml Output Total 157 ml Balance 203 ml 100 ml Intake IV Total 360 ml 100 ml Output Urine Total 75 ml Stool Total 2 ml Drainage Total 80 ml . Physical Exam CONSTITUTIONAL/GENERAL: This is a critically ill patient, intubated and mechanically ventilated. TUBES/LINES/DRAINS: ETT, CVL LIJ, PIV x 3, Left femoral arterial line, right femoral vas cath, soft wrist restraints SKIN: No jaundice, rashes, or lesions. Ecchymoses on upper extremities. No wounds seen anteriorly. Skin temperature appropriate. Not diaphoretic. CARDIOVASCULAR: Regular rate and rhythm without murmurs, gallops, or rubs. Peripheral pulses symmetric. RESPIRATORY/CHEST: Symmetric, mechanically ventilated. Clear to auscultation. Breath sounds equal bilaterally. No wheezes, rales, or rhonchi. GASTROINTESTINAL: Abdomen soft, nontender, nondistended. Hypoactive bowel sounds present. GENITOURINARY: Without palpable bladder distension. Peterson catheter in place. MUSCULOSKELETAL: Extremities without clubbing, cyanosis, or edema. No mottling or clubbing. NEUROLOGICAL: Sedated. Opens eyes spontaneously and to verbal stimuli. Follow simple one step commands. PSYCHIATRIC: Unable to assess secondary to clinical condition. Diagnostic Tests Laboratory Laboratory Tests Test 12/04/16 12:00 12/04/16 21:48 12/05/16 00:10 12/05/16 03:48 Blood Gas Puncture Site ART LINE Blood Gas Patient Temperature 98.6 Blood Gas HCO3 17 mmol/L (22-26) Blood Gas Base Excess -6.0 mmol/L (-2-2) Blood Gas Oxygen Saturation 97 % (90-100) Arterial Blood pH 7.44 (7.380-7.420) Arterial Blood Partial Pressure CO2 26 mmHg (38-42) Arterial Blood Partial Pressure O2 141 mmHg (61-120) Arterial Blood Oxygen Content 14.3 Vol % (12.0-20.0) Arterial Blood Carboxyhemoglobin 1.1 % (0-4) Arterial Blood Methemoglobin 1.2 % (0-2) Blood Gas Hemoglobin 10.3 G/DL (12.0-16.0) Oxygen Delivery Device VENTILATOR Blood Gas Ventilator Setting SEE COMMENTS Blood Gas Inspired Oxygen 50 % White Blood Count 16.2 TH/MM3 (4.0-11.0) 16.3 TH/MM3 (4.0-11.0) Red Blood Count 3.42 MIL/MM3 (4.00-5.30) 3.23 MIL/MM3 (4.00-5.30) Hemoglobin 10.4 GM/DL (11.6-15.3) 9.9 GM/DL (11.6-15.3) Hematocrit 30.3 % (35.0-46.0) 28.7 % (35.0-46.0) Mean Corpuscular Volume 88.4 FL (80.0-100.0) 88.7 FL (80.0-100.0) Mean Corpuscular Hemoglobin 30.3 PG (27.0-34.0) 30.7 PG (27.0-34.0) Mean Corpuscular Hemoglobin Concent 34.2 % (32.0-36.0) 34.6 % (32.0-36.0) Red Cell Distribution Width 15.3 % (11.6-17.2) 15.3 % (11.6-17.2) Platelet Count 57 TH/MM3 (150-450) 52 TH/MM3 (150-450) Mean Platelet Volume 10.7 FL (7.0-11.0) 10.5 FL (7.0-11.0) Urine Osmolality 308 MOSM/KG (300-1300) Urine Random Creatinine 54.6 MG/DL Urine Random Sodium 22 MEQ/L CBC Comment AUTO DIFF Differential Total Cells Counted 100 Neutrophils % (Manual) 70 % (16-70) Band Neutrophils % 7 % (0-6) Lymphocytes % 10 % (9-44) Monocytes % 11 % (0-8) Neutrophils # (Manual) 12.9 TH/MM3 (1.8-7.7) Metamyelocytes 2 % (0-1) Differential Comment FINAL DIFF MANUAL Platelet Estimate LOW (NORMAL) Platelet Morphology Comment NORMAL (NORMAL) Blood Urea Nitrogen 36 MG/DL (7-18) Creatinine 3.79 MG/DL (0.50-1.00) Random Glucose 208 MG/DL (74-106) Total Protein 4.8 GM/DL (6.4-8.2) Albumin 1.6 GM/DL (3.4-5.0) Calcium Level 5.4 MG/DL (8.5-10.1) Phosphorus Level 1.3 MG/DL (2.5-4.9) Magnesium Level 1.7 MG/DL (1.5-2.5) Alkaline Phosphatase 127 U/L (45-117) Aspartate Amino Transf (AST/SGOT) 464 U/L (15-37) Alanine Aminotransferase (ALT/SGPT) 206 U/L (10-53) Total Bilirubin 4.2 MG/DL (0.2-1.0) Sodium Level 146 MEQ/L (136-145) Potassium Level 3.1 MEQ/L (3.5-5.1) Chloride Level 105 MEQ/L (98-107) Carbon Dioxide Level 28.7 MEQ/L (21.0-32.0) Anion Gap 12 MEQ/L (5-15) Estimat Glomerular Filtration Rate 12 ML/MIN (>89) Protein Corrected Calcium 6.4 MG/DL (8.5-10.1) Random Vancomycin Level 24.0 COMMENT Test 12/05/16 05:19 12/05/16 13:15 12/05/16 14:02 12/05/16 15:42 Blood Gas Puncture Site ART LINE Blood Gas Patient Temperature 98.6 Blood Gas HCO3 26 mmol/L (22-26) Blood Gas Base Excess 3.5 mmol/L (-2-2) Blood Gas Oxygen Saturation 97 % (90-100) Arterial Blood pH 7.56 (7.380-7.420) Arterial Blood Partial Pressure CO2 29 mmHg (38-42) Arterial Blood Partial Pressure O2 137 mmHg (61-120) Arterial Blood Oxygen Content 18.0 Vol % (12.0-20.0) Arterial Blood Carboxyhemoglobin 1.3 % (0-4) Arterial Blood Methemoglobin 1.1 % (0-2) Blood Gas Hemoglobin 13.1 G/DL (12.0-16.0) Oxygen Delivery Device VENTILATOR Blood Gas Ventilator Setting PRVC/AC Blood Gas Inspired Oxygen 50 % Blood Urea Nitrogen 40 MG/DL (7-18) Creatinine 3.88 MG/DL (0.50-1.00) Random Glucose 162 MG/DL (74-106) Total Protein 4.9 GM/DL (6.4-8.2) Calcium Level 6.0 MG/DL (8.5-10.1) Sodium Level 146 MEQ/L (136-145) Potassium Level 3.4 MEQ/L (3.5-5.1) Chloride Level 104 MEQ/L (98-107) Carbon Dioxide Level 30.2 MEQ/L (21.0-32.0) Anion Gap 12 MEQ/L (5-15) Estimat Glomerular Filtration Rate 11 ML/MIN (>89) Protein Corrected Calcium 7.0 MG/DL (8.5-10.1) Heparin-Induced Platelet Ab (Pippa) NEGATIVE (NEGATIVE) HIPA Patient Optical Density 0.184 O.D. (0.000-0.300) Prothrombin Time 14.8 SEC (9.8-11.6) Prothromb Time International Ratio 1.3 RATIO Activated Partial Thromboplast Time 41.5 SEC (24.3-30.1) Fibrinogen 434 mg/dL (227-377) Test 12/06/16 03:06 12/06/16 05:04 12/06/16 06:38 12/07/16 04:12 White Blood Count 16.3 TH/MM3 (4.0-11.0) 19.9 TH/MM3 (4.0-11.0) Red Blood Count 3.43 MIL/MM3 (4.00-5.30) 2.72 MIL/MM3 (4.00-5.30) Hemoglobin 10.4 GM/DL (11.6-15.3) 8.3 GM/DL (11.6-15.3) Hematocrit 30.3 % (35.0-46.0) 24.4 % (35.0-46.0) Mean Corpuscular Volume 88.4 FL (80.0-100.0) 89.6 FL (80.0-100.0) Mean Corpuscular Hemoglobin 30.2 PG (27.0-34.0) 30.4 PG (27.0-34.0) Mean Corpuscular Hemoglobin Concent 34.1 % (32.0-36.0) 34.0 % (32.0-36.0) Red Cell Distribution Width 15.4 % (11.6-17.2) 15.6 % (11.6-17.2) Platelet Count 52 TH/MM3 (150-450) 32 TH/MM3 (150-450) Mean Platelet Volume 10.1 FL (7.0-11.0) 9.1 FL (7.0-11.0) CBC Comment AUTO DIFF AUTO DIFF Differential Total Cells Counted 100 100 Neutrophils % (Manual) 67 % (16-70) 86 % (16-70) Band Neutrophils % 9 % (0-6) 3 % (0-6) Lymphocytes % 1 % (9-44) 4 % (9-44) Monocytes % 17 % (0-8) 7 % (0-8) Neutrophils # (Manual) 13.4 TH/MM3 (1.8-7.7) 17.7 TH/MM3 (1.8-7.7) Metamyelocytes 6 % (0-1) Nucleated Red Blood Cells 2 /100 WBC (0-0) Differential Comment FINAL DIFF MANUAL FINAL DIFF MANUAL Toxic Vacuolation PRESENT (NONE SEEN) Dohle Bodies PRESENT (NONE SEEN) Platelet Estimate LOW (NORMAL) LOW (NORMAL) Platelet Morphology Comment NORMAL (NORMAL) NORMAL (NORMAL) Ovalocytes 1+ (NORMAL) Prothrombin Time 14.0 SEC (9.8-11.6) Prothromb Time International Ratio 1.3 RATIO Activated Partial Thromboplast Time 42.7 SEC (24.3-30.1) Fibrinogen 392 mg/dL (227-377) Blood Urea Nitrogen 36 MG/DL (7-18) 31 MG/DL (7-18) Creatinine 3.25 MG/DL (0.50-1.00) 2.49 MG/DL (0.50-1.00) Random Glucose 132 MG/DL (74-106) 126 MG/DL (74-106) Total Protein 5.1 GM/DL (6.4-8.2) 5.0 GM/DL (6.4-8.2) Albumin 1.6 GM/DL (3.4-5.0) 1.9 GM/DL (3.4-5.0) Calcium Level 5.6 MG/DL (8.5-10.1) 6.0 MG/DL (8.5-10.1) Phosphorus Level 1.8 MG/DL (2.5-4.9) 3.2 MG/DL (2.5-4.9) Magnesium Level 1.5 MG/DL (1.5-2.5) 1.5 MG/DL (1.5-2.5) Alkaline Phosphatase 140 U/L (45-117) 157 U/L (45-117) Aspartate Amino Transf (AST/SGOT) 555 U/L (15-37) 325 U/L (15-37) Alanine Aminotransferase (ALT/SGPT) 259 U/L (10-53) 183 U/L (10-53) Total Bilirubin 3.8 MG/DL (0.2-1.0) 3.2 MG/DL (0.2-1.0) Sodium Level 145 MEQ/L (136-145) 140 MEQ/L (136-145) Potassium Level 3.5 MEQ/L (3.5-5.1) 3.6 MEQ/L (3.5-5.1) Chloride Level 108 MEQ/L (98-107) 107 MEQ/L (98-107) Carbon Dioxide Level 23.3 MEQ/L (21.0-32.0) 20.4 MEQ/L (21.0-32.0) Anion Gap 14 MEQ/L (5-15) 13 MEQ/L (5-15) Estimat Glomerular Filtration Rate 14 ML/MIN (>89) 19 ML/MIN (>89) Protein Corrected Calcium 6.4 MG/DL (8.5-10.1) 7.0 MG/DL (8.5-10.1) Random Vancomycin Level 18.3 COMMENT 14.1 COMMENT Blood Gas Puncture Site ART LINE ART LINE Blood Gas Patient Temperature 98.6 98.6 Blood Gas HCO3 23 mmol/L (22-26) 23 mmol/L (22-26) Blood Gas Base Excess 0.6 mmol/L (-2-2) 0.1 mmol/L (-2-2) Blood Gas Oxygen Saturation 97 % (90-100) 97 % (90-100) Arterial Blood pH 7.56 (7.380-7.420) 7.50 (7.380-7.420) Arterial Blood Partial Pressure CO2 26 mmHg (38-42) 30 mmHg (38-42) Arterial Blood Partial Pressure O2 190 mmHg (61-120) 138 mmHg (61-120) Arterial Blood Oxygen Content 14.9 Vol % (12.0-20.0) 19.1 Vol % (12.0-20.0) Arterial Blood Carboxyhemoglobin 1.4 % (0-4) 1.0 % (0-4) Arterial Blood Methemoglobin 1.0 % (0-2) 1.2 % (0-2) Blood Gas Hemoglobin 10.6 G/DL (12.0-16.0) 13.9 G/DL (12.0-16.0) Oxygen Delivery Device VENTILATOR VENTILATOR Blood Gas Ventilator Setting PRVC/AC PRVC/AC 18/520/ Blood Gas Inspired Oxygen 50 % 40 % Red Cell Morphology Comment NORMAL (NORMAL) Test 12/07/16 05:18 Blood Gas Puncture Site ART LINE Blood Gas Patient Temperature 98.6 Blood Gas HCO3 20 mmol/L (22-26) Blood Gas Base Excess -3.4 mmol/L (-2-2) Blood Gas Oxygen Saturation 96 % (90-100) Arterial Blood pH 7.44 (7.380-7.420) Arterial Blood Partial Pressure CO2 30 mmHg (38-42) Arterial Blood Partial Pressure O2 141 mmHg (61-120) Arterial Blood Oxygen Content 11.8 Vol % (12.0-20.0) Arterial Blood Carboxyhemoglobin 1.4 % (0-4) Arterial Blood Methemoglobin 1.2 % (0-2) Blood Gas Hemoglobin 8.5 G/DL (12.0-16.0) Oxygen Delivery Device VENTILATOR Blood Gas Ventilator Setting PRVC/AC Blood Gas Inspired Oxygen 40 % Result Diagram: 12/07/16 0412 12/07/16 0412 Imaging Last 72 hours Impressions Chest X-Ray 12/07/16 06 Signed Impressions: Service Date/Time: Wednesday, December 07, 2016 04:20 - CONCLUSION: 1. Bibasilar consolidation greater on the left, stable. 2. Interstitial edema. Sourav Arreola MD Chest X-Ray 12/06/16 06 Signed Impressions: Service Date/Time: November 03:19 - CONCLUSION: 1. Left lower lobe atelectasis versus pneumonia. 2. Resolving right basilar atelectasis Royal Messer MD Abdomen X-Ray 10/19/17 0000 Signed Impressions: Service Date/Time: November 16:24 - CONCLUSION: Feeding tube distal tip overlies the right lower lung zone and is possibly within the airway. Therefore, suggest repositioning. Fermin Acosta MD Chest X-Ray 12/05/16 0600 Signed Impressions: Service Date/Time: Monday, December 05, 2016 04:32 - CONCLUSION: 1. Cardiomegaly and findings of congestive heart failure. There has been no significant change when compared to the prior exam. Royal Messer MD Chest X-Ray 12/05/16 0000 Signed Impressions: Service Date/Time: Monday, December 05, 2016 16:17 - CONCLUSION: 1. No weighted feeding tube observed on the current study. 2. Unchanged bibasilar infiltrates and small effusions. Nain Sharma Jr., MD Abdomen X-Ray 12/05/16 0000 Signed Impressions: Service Date/Time: Monday, December 05, 2016 13:33 - CONCLUSION: The distal tip of the feeding tube overlies the inferior right chest. Therefore, it is likely in bronchus intermedius or the right middle or lower lobe bronchus. A hiatal hernia is present but based on recent CT is located to the left of midline. Therefore, this feeding tube should be removed and repositioned prior to use. Fermin Acosta MD Assessment and Plan Disease Oriented Problem List: (1) Sepsis (2) Metabolic acidosis (3) Acute cholecystitis (4) Respiratory failure Symptom Scale: (1) Dyspnea (2) Debility (3) Pain Pertinent Non-Medical Issues Psychosocial:Patient is originally from [place], [place], she has been to her for 56 years and has two children. 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 She retired in her early 60s when she began spending half of the year between [place] and [place]. Spiritual: Legal: None known. Ethical issues impacting care:None known. Important Contacts Marco Antonio Flores () [phone] . Prognosis Patient has experienced a physical and functional decline over the past two years. She has suffered from chronic back pain due to scoliosis and has recently drank daily heavily to alleviate the pain. The patient was admitted for sepsis followed by respiratory distress requiring intubation, she has continued to decline and has now progressed into multiorgan failure. She is at an increased risk for complications/setbacks due to her advanced age, multiple comorbidities, and current clinical status. . Code Status: Alternative Code Plan * Legal decision maker: Patient does not have the capacity to make her own health care decisions. It is unclear at this time if she will regain the capacity to make her own health care decisions. Documented HCS is patient's Marco Antonio Flores [phone], alternate HCS are Alvin Flores or Pippa Flores. * CODE STATUS:Alternative code, intubation only. * GOALS: Aggressive short of CPR. * SYMPTOM MANAGEMENT: * --pain: Patient at ongoing risk for pain secondary to intubation, mechanical ventilation, and bedbound status. Patient is currently sedated on versed and fentanyl. No recommendations at this time, further recommendations pending hospital course. * --dyspnea: Patient is intubated and mechanically ventilated, duonebs scheduled q 6hr and q 2hr PRN ordered. No recommendations at this time. * --debility: Secondary to current clinical status, mechanical ventilation, bedbound status. Patient is critically ill at this time and is not a candidate for PT. No recommendations at this time. * Palliative care will continue to follow during hospital course as condition evolves, to assist patient/family/decision-maker with understanding of medical conditions, weighing benefit/burdens of treatment options, for clarification of goals of treatment. Additionally will assist with symptoms of palliative concern. Attestation To help prompt me to consider important information that might be impacting today's encounter and assessment, information from prior notes written by myself or my colleagues may have been "brought forward" into today's note. My signature on this note, however, is an attestation that I personally performed the exam, history, and/or decision-making noted today, and, unless otherwise indicated, the interactions with patient, family, and staff as well as the review of records all occurred today. I also attest that the listed assessment and stated plan reflect my best clinical judgment today based on the combination of historical information, prior notes, and today's exam/ interactions. When time spent is documented, it refers only to time spent today by the signer, or if indicated, combined time spent today by collaborating physician/nurse practitioner. Kallie Miranda Dec 07, 2016 11:59
[2016-12-07] MEDS ORDERED: CALCIUM GLUCONATE INJ 1 GM in DEXTROSE 5% IN WATER 100ML INJ 100 ML IV ONE ×2 (12:00)
[2016-12-07] MEDS ORDERED: PROPOFOL 200 MG/20 ML AMP IV ONE (12:00)
[2016-12-07 12:25] LABS: INTERNATIONAL NORMALIZED RATIO 1.3 RATIO
--- NOTE | 2016-12-07 12:55 | PD.ONC.PN ---
Subjective Subjective Remarks Afebrile overnight. Patient intubated, sedated. Off pressors. No further epistaxis. Had left forearm bleeding from old skin tear this AM, but has now stopped. Objective Data Date Time Temp Pulse Resp B/P (MAP) Pulse Ox O2 Delivery O2 Flow Rate FiO2 12/07/16 12:01 95 35 12/07/16 10:00 72 12/07/16 08:00 35 12/07/16 08:00 97.3 74 18 113/66 (82) 96 12/07/16 08:00 72 12/07/16 07:37 100 35 12/07/16 06:00 67 21 107/69 (82) 100 114/64 (81) 12/07/16 06:00 67 107/69 (82) 114/64 (81) 12/07/16 06:00 67 12/07/16 04:00 67 103/67 (79) 110/63 (79) 12/07/16 04:00 67 12/07/16 04:00 100 40 12/07/16 04:00 40 12/07/16 04:00 98.1 67 20 103/67 (79) 99 110/63 (79) 12/07/16 02:00 72 12/07/16 01:00 74 18 131/79 (96) 100 131/73 (92) 12/07/16 00:16 100 40 12/07/16 00:00 98.7 78 19 106/67 (80) 117/66 (83) 12/07/16 00:00 40 12/07/16 00:00 68 117/66 (83) 106/67 (80) 12/07/16 00:00 78 12/06/16 23:00 80 18 99/63 (75) 107/64 (78) 12/06/16 22:00 81 12/06/16 22:00 81 18 97/61 (73) 100 108/62 (77) 12/06/16 21:35 100 40 12/06/16 21:00 75 19 107/69 (82) 100 119/68 (85) 12/06/16 20:30 74 19 108/69 (82) 100 119/69 (86) 12/06/16 20:00 68 117/69 (85) 106/67 (80) 12/06/16 20:00 97.2 76 18 106/67 (80) 100 117/69 (85) 12/06/16 20:00 76 12/06/16 20:00 40 12/06/16 19:30 100 40 12/06/16 18:00 69 18 136/86 (103) 100 144/81 (102) 12/06/16 18:00 69 12/06/16 17:00 82 12/06/16 17:00 82 18 131/81 (98) 100 140/77 (98) 12/06/16 16:00 97.4 68 18 125/76 (92) 130/71 (90) 12/06/16 16:00 40 12/06/16 16:00 68 12/06/16 16:00 68 125/76 (92) 130/71 (90) 12/06/16 15:00 72 18 115/71 (86) 100 120/66 (84) 12/06/16 15:00 72 12/06/16 14:06 97.4 76 18 120/66 100 12/06/16 14:00 75 18 115/73 (87) 100 125/71 (89) 12/06/16 14:00 75 12/06/16 13:00 69 18 130/86 (101) 100 141/79 (99) 12/06/16 13:00 69 12/07/16 12/07/16 12/07/16 07:00 15:00 23:00 Intake Total 100 ml 100 ml Output Total 157 ml Balance -57 ml 100 ml Result Diagram: 12/07/16 0412 12/07/16 0412 Laboratory Results Laboratory Tests Test 12/07/16 04:12 12/07/16 05:18 12/07/16 11:30 White Blood Count 19.9 TH/MM3 Red Blood Count 2.72 MIL/MM3 Hemoglobin 8.3 GM/DL Hematocrit 24.4 % Mean Corpuscular Volume 89.6 FL Mean Corpuscular Hemoglobin 30.4 PG Mean Corpuscular Hemoglobin Concent 34.0 % Red Cell Distribution Width 15.6 % Platelet Count 32 TH/MM3 Mean Platelet Volume 9.1 FL CBC Comment AUTO DIFF Differential Total Cells Counted 100 Neutrophils % (Manual) 86 % Band Neutrophils % 3 % Lymphocytes % 4 % Monocytes % 7 % Neutrophils # (Manual) 17.7 TH/MM3 Differential Comment FINAL DIFF MANUAL Platelet Estimate LOW Platelet Morphology Comment NORMAL Red Cell Morphology Comment NORMAL Blood Urea Nitrogen 31 MG/DL Creatinine 2.49 MG/DL Random Glucose 126 MG/DL Total Protein 5.0 GM/DL Albumin 1.9 GM/DL Calcium Level 6.0 MG/DL Phosphorus Level 3.2 MG/DL Magnesium Level 1.5 MG/DL Alkaline Phosphatase 157 U/L Aspartate Amino Transf (AST/SGOT) 325 U/L Alanine Aminotransferase (ALT/SGPT) 183 U/L Total Bilirubin 3.2 MG/DL Sodium Level 140 MEQ/L Potassium Level 3.6 MEQ/L Chloride Level 107 MEQ/L Carbon Dioxide Level 20.4 MEQ/L Anion Gap 13 MEQ/L Estimat Glomerular Filtration Rate 19 ML/MIN Protein Corrected Calcium 7.0 MG/DL Random Vancomycin Level 14.1 COMMENT Blood Gas Puncture Site ART LINE Blood Gas Patient Temperature 98.6 Blood Gas HCO3 20 mmol/L Blood Gas Base Excess -3.4 mmol/L Blood Gas Oxygen Saturation 96 % Arterial Blood pH 7.44 Arterial Blood Partial Pressure CO2 30 mmHg Arterial Blood Partial Pressure O2 141 mmHg Arterial Blood Oxygen Content 11.8 Vol % Arterial Blood Carboxyhemoglobin 1.4 % Arterial Blood Methemoglobin 1.2 % Blood Gas Hemoglobin 8.5 G/DL Oxygen Delivery Device VENTILATOR Blood Gas Ventilator Setting PRVC/AC Blood Gas Inspired Oxygen 40 % Prothrombin Time 14.0 SEC Prothromb Time International Ratio 1.3 RATIO Activated Partial Thromboplast Time 36.4 SEC Fibrinogen 213 mg/dL Imaging Studies Last 24 hours Impressions Chest X-Ray 12/07/16 0600 Signed Impressions: Service Date/Time: Wednesday, December 07, 2016 04:20 - CONCLUSION: 1. Bibasilar consolidation greater on the left, stable. 2. Interstitial edema. Sourav Arreola MD Administered Medications Medications (Trade) Dose Ordered Sig/Dhruv Route PRN Reason Start Time Stop Time Status Last Admin Dose Admin Sodium Chloride (NS Flush) 2 ml UNSCH PRN IV FLUSH FLUSH AFTER USING IV ACCESS 12/02/16 16:15 12/06/16 20:52 Sodium Chloride (NS Flush) 2 ml BID IV FLUSH 12/02/16 21:00 12/07/16 08:42 Famotidine (Pepcid Inj) 20 mg DAILY IV PUSH 12/02/16 21:00 12/07/16 08:42 Heparin Sodium (Porcine) (Heparin Inj) 5,000 units Q12H SQ 12/02/16 17:00 Future Hold 12/04/16 04:28 Miscellaneous Information 1 Q361D XX 12/02/16 16:15 12/02/16 16:15 Chlorhexidine Gluconate (Chlorhexidine 2% Cloth) 3 pack Taper DAILY@04 TOP 12/03/16 04:00 11/29/17 03:59 12/07/16 04:00 Senna/Docusate Sodium (Keely-Colace) 1 tab BID PO 12/02/16 21:00 12/05/16 08:20 Insulin Human Regular (NovoLIN R SUPPLEMENTAL SCALE) 1 ACHS SLIDING SCALE SQ 12/02/16 17:00 12/06/16 17:00 Lorazepam (Ativan Inj) 1 mg Q4H PRN IV PUSH ANXIETY 12/02/16 16:45 12/02/16 20:23 Chlorhexidine Gluconate (Peridex 0.12% Liq) 15 ml BID@08,20 MT 12/03/16 08:00 12/07/16 08:44 Fentanyl Citrate 250 ml @ 5 mls/hr TITRATE PRN IV SEDATION 12/02/16 22:15 12/06/16 04:35 Norepinephrine Bitartrate 4 mg/ Sodium Chloride 250 ml @ 7.5 mls/hr TITRATE PRN IV Blood pressure management 12/02/16 22:15 12/06/16 04:34 Sodium Chloride (NS Flush) DAILY IV FLUSH 12/03/16 09:00 12/06/16 08:19 Sodium Chloride (NS Flush) UNSCH PRN IV FLUSH SEE PROTOCOL 12/02/16 23:15 12/06/16 20:52 Hydrocortisone Sodium Succinate (SoluCORTEF INJ) 100 mg Q8H IV PUSH 12/03/16 09:00 12/07/16 08:42 Artificial Tears (Tears Naturale Opth Soln) 1 drop Q8HR PRN EACH EYE DRY EYE 12/03/16 08:15 12/04/16 17:22 Phenylephrine HCl 80 mg/Dextrose 500 ml @ 15 mls/hr TITRATE PRN IV Blood pressure Management 12/03/16 17:15 12/06/16 04:35 Metronidazole 100 ml @ 100 mls/hr Q8H IV 12/04/16 02:00 12/07/16 09:13 Micafungin Sodium 100 mg/Sodium Chloride 100 ml @ 100 mls/hr Q24H IV 12/04/16 18:00 12/06/16 17:45 Multivitamins 10 ml/Folic Acid 1 mg/Sodium Chloride 510.2 ml @ 125 mls/hr Q24H IV 12/04/16 10:00 12/09/16 09:59 12/07/16 09:18 Midazolam HCl 100 ml @ 2 mls/hr TITRATE PRN IV SEDATION 12/04/16 11:00 12/05/16 01:10 Cefepime HCl 2000 mg/Sodium Chloride 100 ml @ 200 mls/hr Q12H IV 12/05/16 14:00 12/07/16 02:13 Sodium Chloride 1,000 ml @ 0 mls/hr UNSCH PRN OTHER SEE LABEL COMMENTS 12/05/16 17:30 12/07/16 02:14 Objective Remarks GENERAL: Intubated sedated female supine in bed. SKIN: Warm and dry. left forearm with bruising on dorsal surface, +coagulated blood noted when bandage removed. no active bleeding. HEAD: Normocephalic. no bleeding from nares EYES: No injection or drainage. NECK: Supple, trachea midline. CARDIOVASCULAR: +S1/S2 RESPIRATORY: anterior dennis clear. On mechanical ventilation. GASTROINTESTINAL: Abdomen soft, non-distended. EXTREMITIES: No cyanosis. + anasarca. NEUROLOGICAL: intubated, sedated. Assessment/Plan Problem List: (1) Pancytopenia ICD Codes: D61.818 - Other pancytopenia Plan: 12/07: no active bleeding. monitor CBC, coags. --due to bone marrow suppression from sepsis. --expect her pancytopenia to get worse in the next several days if sepsis is not under control. --monitor her CBC closely and provide blood product support as needed. (2) Sepsis ICD Codes: A41.9 - Sepsis, unspecified organism Status: Acute (3) Acute kidney injury ICD Codes: N17.9 - Acute kidney failure, unspecified Status: Acute Plan: --receiving HD Assessment 71y/o female admitted with dyspnea, fever and vomiting. Hematology consulted for pancytopenia h/o Coronary artery disease. Status post myocardial infarction. hypertension. Hypercholesterolemia. Attending Statement The exam, history, and the medical decision-making described in the above note were completed with the assistance of the mid-level provider. I reviewed and agree with the findings presented. I attest that I had a [id number] encounter with the patient on the same day, and personally performed and documented my assessment and findings in the medical record. Patient is on the ventilator and sedated No further nosebleed Patient has septic shock Leukocytosis, thrombocytopenia and anemia due to sepsis Monitor CBC Problem Qualifiers (1) Sepsis: Qualified Codes: A41.9 - Sepsis, unspecified organism Tatum Proctor Dec 07, 2016 12:55 Lana Justice MD Dec 07, 2016 15:53
--- NOTE | 2016-12-07 15:07 | HHI.IDPN ---
Subjective Subjective Remarks clinically remains the same practically anuric afebrile weaning of pressors On vent Antibiotics vanco ceepime micafungin flagyl Allergies: Coded Allergies: No Known Allergies (Unverified , 12/02/16) Objective . Vital Signs Date Time Temp Pulse Resp B/P (MAP) Pulse Ox O2 Delivery O2 Flow Rate FiO2 12/07/16 12:01 95 35 12/07/16 10:00 72 12/07/16 08:00 35 12/07/16 08:00 97.3 74 18 113/66 (82) 96 12/07/16 08:00 72 12/07/16 07:37 100 35 12/07/16 06:00 67 21 107/69 (82) 100 114/64 (81) 12/07/16 06:00 67 107/69 (82) 114/64 (81) 12/07/16 06:00 67 12/07/16 04:00 67 103/67 (79) 110/63 (79) 12/07/16 04:00 67 12/07/16 04:00 100 40 12/07/16 04:00 40 12/07/16 04:00 98.1 67 20 103/67 (79) 99 110/63 (79) 12/07/16 02:00 72 12/07/16 01:00 74 18 131/79 (96) 100 131/73 (92) 12/07/16 00:16 100 40 12/07/16 00:00 98.7 78 19 106/67 (80) 117/66 (83) 12/07/16 00:00 40 12/07/16 00:00 68 117/66 (83) 106/67 (80) 12/07/16 00:00 78 12/06/16 23:00 80 18 99/63 (75) 107/64 (78) 12/06/16 22:00 81 12/06/16 22:00 81 18 97/61 (73) 100 108/62 (77) 12/06/16 21:35 100 40 12/06/16 21:00 75 19 107/69 (82) 100 119/68 (85) 12/06/16 20:30 74 19 108/69 (82) 100 119/69 (86) 12/06/16 20:00 68 117/69 (85) 106/67 (80) 12/06/16 20:00 97.2 76 18 106/67 (80) 100 117/69 (85) 12/06/16 20:00 76 12/06/16 20:00 40 12/06/16 19:30 100 40 12/06/16 18:00 69 18 136/86 (103) 100 144/81 (102) 12/06/16 18:00 69 12/06/16 17:00 82 12/06/16 17:00 82 18 131/81 (98) 100 140/77 (98) 12/06/16 16:00 97.4 68 18 125/76 (92) 130/71 (90) 12/06/16 16:00 40 12/06/16 16:00 68 12/06/16 16:00 68 125/76 (92) 130/71 (90) 12/07/16 12/07/16 12/08/16 15:00 23:00 07:00 Intake Total 615 ml Balance 615 ml Intake IV Total 615 ml . Laboratory Tests Test 12/06/16 03:06 12/07/16 04:12 White Blood Count 16.3 TH/MM3 19.9 TH/MM3 Red Blood Count 3.43 MIL/MM3 2.72 MIL/MM3 Hemoglobin 10.4 GM/DL 8.3 GM/DL Hematocrit 30.3 % 24.4 % Mean Corpuscular Volume 88.4 FL 89.6 FL Mean Corpuscular Hemoglobin 30.2 PG 30.4 PG Mean Corpuscular Hemoglobin Concent 34.1 % 34.0 % Red Cell Distribution Width 15.4 % 15.6 % Platelet Count 52 TH/MM3 32 TH/MM3 Mean Platelet Volume 10.1 FL 9.1 FL CBC Comment AUTO DIFF AUTO DIFF Differential Total Cells Counted 100 100 Neutrophils % (Manual) 67 % 86 % Band Neutrophils % 9 % 3 % Lymphocytes % 1 % 4 % Monocytes % 17 % 7 % Neutrophils # (Manual) 13.4 TH/MM3 17.7 TH/MM3 Metamyelocytes 6 % Nucleated Red Blood Cells 2 /100 WBC Differential Comment FINAL DIFF MANUAL FINAL DIFF MANUAL Toxic Vacuolation PRESENT Dohle Bodies PRESENT Platelet Estimate LOW LOW Platelet Morphology Comment NORMAL NORMAL Ovalocytes 1+ Red Cell Morphology Comment NORMAL Laboratory Tests Test 12/06/16 03:06 12/07/16 04:12 Blood Urea Nitrogen 36 MG/DL 31 MG/DL Creatinine 3.25 MG/DL 2.49 MG/DL Random Glucose 132 MG/DL 126 MG/DL Total Protein 5.1 GM/DL 5.0 GM/DL Albumin 1.6 GM/DL 1.9 GM/DL Calcium Level 5.6 MG/DL 6.0 MG/DL Phosphorus Level 1.8 MG/DL 3.2 MG/DL Magnesium Level 1.5 MG/DL 1.5 MG/DL Alkaline Phosphatase 140 U/L 157 U/L Aspartate Amino Transf (AST/SGOT) 555 U/L 325 U/L Alanine Aminotransferase (ALT/SGPT) 259 U/L 183 U/L Total Bilirubin 3.8 MG/DL 3.2 MG/DL Sodium Level 145 MEQ/L 140 MEQ/L Potassium Level 3.5 MEQ/L 3.6 MEQ/L Chloride Level 108 MEQ/L 107 MEQ/L Carbon Dioxide Level 23.3 MEQ/L 20.4 MEQ/L Anion Gap 14 MEQ/L 13 MEQ/L Estimat Glomerular Filtration Rate 14 ML/MIN 19 ML/MIN Protein Corrected Calcium 6.4 MG/DL 7.0 MG/DL Imaging Last Impressions Chest X-Ray 12/07/16 0600 Signed Impressions: Service Date/Time: Wednesday, December 07, 2016 04:20 - CONCLUSION: 1. Bibasilar consolidation greater on the left, stable. 2. Interstitial edema. Sourav Arreola MD Abdomen X-Ray 12/06/16 0000 Signed Impressions: Service Date/Time: November 16:24 - CONCLUSION: Feeding tube distal tip overlies the right lower lung zone and is possibly within the airway. Therefore, suggest repositioning. Fermin Acosta MD Abdomen/Pelvis CT 12/04/16 0600 Signed Impressions: Service Date/Time: Sunday, December 04, 2016 09:35 - CONCLUSION: 1. Interval placement of a cholecystostomy tube. 2. Bibasilar consolidation likely related to atelectasis. This is unchanged. 3. Tip of the NG tube in the hiatal hernia. 4. Small volume ascites. 5. No acute abnormality observed. Nain Sharma Jr., MD Percutaneous Cholangiogram 12/03/16 0000 Signed Impressions: Service Date/Time: Saturday, December 03, 2016 14:31 - CONCLUSION: Uncomplicated percutaneous cholecystostomy as above. Nain Sharma Jr., MD Liver Ultrasound 12/02/16 0000 Signed Impressions: Service Date/Time: Friday, December 02, 2016 19:12 - CONCLUSION: 1. Cholelithiasis with wall thickening and trace pericholecystic fluid. 2. No evidence of biliary duct distention. 3. No other significant abnormality. Jak Hughes MD Physical Exam CONSTITUTIONAL/GENERAL: This is an adequately nourished patient, in no apparent distress. TUBES/LINES/DRAINS: biliary drain in place with cloudy dark brown bile SKIN: + mild jaundice, rashes, or lesions. . Skin temperature appropriate. Not diaphoretic. HEAD: Atraumatic. Normocephalic. EYES: Pupils equal and round and reactive. + scleral icterus. No injection or drainage. Fundi not examined. ENT: Hearing not assessed. Nose without bleeding or purulent drainage. Oraly intubated NECK: Trachea midline. Supple, nontender. CARDIOVASCULAR: Regular rate and rhythm without murmurs, gallops, or rubs. No JVD. Peripheral pulses symmetric. Perfusion diminished on b/l toes, on fingersd refill is brisk RESPIRATORY/CHEST: Symmetric, unlabored respirations. Clear to auscultation. Breath sounds equal bilaterally. No wheezes, rales, or rhonchi. GASTROINTESTINAL: Abdomen soft, no reaction to papation + distended. No hepato- splenomegaly, or palpable masses. Drain in place No guarding. Bowel sounds very hypoactive GENITOURINARY: Without palpable bladder distension. Peterson catheter in place with small amount of cloudy urine MUSCULOSKELETAL: Extremities without clubbing, cyanosis, + 1-2 edema. No joint tenderness or effusion noted. No calf tenderness. No mottling or clubbing. NEUROLOGICAL: Sedated, arousable follows commands of sedation PSYCHIATRIC: unabe to assess Assessment & Plan Remarks Billiary sepsis ? uncontrolled as of today WBC trending up, pts and fibrinogen down Multi-organ failure: acute VDRF ARF Hypotensiotn, on pressors Gram negative sepsis Acute calculous cholecystitis sp cholecystostomy tube placement - growing enterococccus chirinos S in the bile clx ? E.coli UTI ? PNA vs ARDS - growing E.coli in sputum R to zosyn Critical, more stable No resistance risks (no abx in the last month, presents from [facility]) Plts are going down Fibrinogen trending down - in DIC? restart zosyn start levaqine for zosyn R E.coli in the sputum dc cefepime, flagyl, vancomycin and micafungin reconsult gen surgery ? gangrenous cholecystitis, dw Dr Anam [facility] family @ b/s Jina Ramos MD Dec 07, 2016 15:07
--- NOTE | 2016-12-07 15:35 | HHI.CCPN ---
Subjective Remarks/Hospital Course This is a 71-year-old female presents to the ED via EMS for evaluation of fever , shortness breath, vomiting, diarrhea, abdominal pain She reports that she's been short of breath for the past 2 weeks, but has progressed in the past 2 days. Patient has been seeing a manufacturing machine operator for her shortness of breath, is not on home oxygen. The patient reported she has a history of smoking. She is also complaining of abdominal pain that started 2 days ago with vomiting and diarrhea. Patient has severe tenderness to mild palpation. She has history of AK. She received 500 mL normal saline IV bolus, and Zofran 4 mg IV. Critical care medicine was consulted. Subjective: 12/03: Tmax 100.9. Last evening the patient was noted to have significant respiratory decompensation with requirement for emergent intubation. The patient subsequently became hemodynamically unstable requiring vasopressor support. Patient is lightly sedated, and continues to have abdominal pain, and hypoactive bowel sounds, GI has been consulted. HIDA scan previously scheduled for this morning, after discussion with Dr Goodrich , plan for cholecystostomy tube placement by IR. Ultrasound liver showed no biliary duct distention but notable thickened gallbladder wall. 12/04: Tmax 100.4. Patient continues with severe metabolic acidosis, sodium bicarbonate infusion increased to 150 cc/hour yesterday afternoon. Antibiotics were expanded yesterday with addition of Micafungin and Diflucan. Blood cultures resulted with Enterobacter, Klebsiella pneumoniae and Escherichia coli. ID consulted recommendations appreciated. Patient is status post placement of percutaneous cholecystostomy tube . Patient now icteric, but LFTs are trending down. Records obtained from primary care physician with cardiology reports from earlier in the year, patient with noted pulmonary hypertension and NYHA class III. In-hospital echo pending. Patient continues on 3 pressors to maintain blood pressure. 12/05: Patient has been weaned off of vasopressor continues on to agents Gurinder- Synephrine, norepinephrine at low doses. Patient noted to still be thrombocytopenic platelet count decreased today HIT panel pending. INR remains elevated no active signs of bleeding liver function enzymes remain elevated. No urine output over the last 12 hours nephrology following discussion with for possible hemodialysis, will await nephrology recommendations. Sodium bicarbonate infusion discontinued. Patient remains alert GCS 11 T. 12/06: Afebrile. The patient continues on CRRT initiated last night, tolerating it well patient continues only on phenylephrine infusion to maintain MAP. The patient received 2 units of FFP per hematology/oncology recommendations. Plan for evaluation and placement for NG tube placement board winder. 12/07: Afebrile. Vasopressors discontinued at 4 AM, CRRT completed, patient will be transitioned to IHD 2 times a week. Patient was noted to be severely thrombocytopenic platelet count 32 ,plan for transfusions of platelets, fibrinogen level decreasing. Bile specimen noted to result Enterococcus faecalis, contacted Dr. Portillo general surgery updated him discussion regarding elective versus semielective laparoscopic cholecystectomy ,informed that no surgical intervention indicated at this time. Cholecystostomy tube continues to drain. Objective Vital Signs Date Time Temp Pulse Resp B/P (MAP) Pulse Ox O2 Delivery O2 Flow Rate FiO2 12/07/16 12:01 95 35 12/07/16 10:00 72 12/07/16 08:00 97.3 18 113/66 (82) 12/04/16 20:41 Ventilator Intake and Output 12/07/16 12/07/16 12/08/16 08:00 16:00 00:00 Intake Total 100 ml 615 ml Output Total 157 ml Balance -57 ml 615 ml Result Diagram: 12/07/16 0412 12/07/16 0412 Other Results Laboratory Tests Test 12/07/16 05:18 Blood Gas Puncture Site ART LINE Blood Gas Patient Temperature 98.6 Blood Gas HCO3 20 mmol/L (22-26) Blood Gas Base Excess -3.4 mmol/L (-2-2) Blood Gas Oxygen Saturation 96 % (90-100) Arterial Blood pH 7.44 (7.380-7.420) Arterial Blood Partial Pressure CO2 30 mmHg (38-42) Arterial Blood Partial Pressure O2 141 mmHg (61-120) Arterial Blood Oxygen Content 11.8 Vol % (12.0-20.0) Arterial Blood Carboxyhemoglobin 1.4 % (0-4) Arterial Blood Methemoglobin 1.2 % (0-2) Blood Gas Hemoglobin 8.5 G/DL (12.0-16.0) Oxygen Delivery Device VENTILATOR Blood Gas Ventilator Setting PRVC/AC Blood Gas Inspired Oxygen 40 % Imaging Last Impressions Chest X-Ray 12/05/16 0600 Signed Impressions: Service Date/Time: Monday, December 05, 2016 04:32 - CONCLUSION: 1. Cardiomegaly and findings of congestive heart failure. There has been no significant change when compared to the prior exam. Royal Messer MD Abdomen/Pelvis CT 12/04/16 0600 Signed Impressions: Service Date/Time: Sunday, December 04, 2016 09:35 - CONCLUSION: 1. Interval placement of a cholecystostomy tube. 2. Bibasilar consolidation likely related to atelectasis. This is unchanged. 3. Tip of the NG tube in the hiatal hernia. 4. Small volume ascites. 5. No acute abnormality observed. Nain Sharma Jr., MD Percutaneous Cholangiogram 12/03/16 0000 Signed Impressions: Service Date/Time: Saturday, December 03, 2016 14:31 - CONCLUSION: Uncomplicated percutaneous cholecystostomy as above. Nain Sharma Jr., MD Liver Ultrasound 12/02/16 0000 Signed Impressions: Service Date/Time: Friday, December 02, 2016 19:12 - CONCLUSION: 1. Cholelithiasis with wall thickening and trace pericholecystic fluid. 2. No evidence of biliary duct distention. 3. No other significant abnormality. Jak Hughes MD Last 24 hours Impressions Chest X-Ray 12/02/16 2305 Signed Impressions: Service Date/Time: Friday, December 02, 2016 23:12 - CONCLUSION: 1. Satisfactory position of endotracheal tube as above. 2. Uncomplicated line placement. No evidence of pneumothorax. Royal Messer MD Chest X-Ray 12/02/16 1217 Signed Impressions: Service Date/Time: Friday, December 02, 2016 12:56 - CONCLUSION: Cardiomegaly. Left lower lobe atelectasis versus pneumonia. Royal Messer MD Objective Remarks Infusions: Versed 2 mg/hour Fentanyl 100 mugs Gurinder-Synephrine 15 mcgs/min GENERAL: Critically ill appearing appropriately stated age female intubated and sedated SKIN: Warm and dry. Jaundiced appearing HEAD: Atraumatic. Normocephalic. EYES: Pupils equal and round. scleral icterus. No injection or drainage. Extraocular movements intact ENT: No nasal bleeding or discharge. Mucous membranes pink and moist. Orotracheally intubated NECK: Trachea midline. No JVD. CARDIOVASCULAR: Normal rate, regular rhythm. Telemetry sinus rhythm RESPIRATORY: No accessory muscle use. Clear to auscultation. Breath sounds equal bilaterally. GASTROINTESTINAL: Abdomen soft,nondistended, tender to palpation. No guarding. MUSCULOSKELETAL: Extremities without clubbing, cyanosis, or edema. No obvious deformities. Right groin Vas-Cath site soft no erythema/drainage NEUROLOGICAL: RASS -2. No gross focal/sensory deficits. Follows commands in all 4 extremities. Procedures 12/02-abdominal ultrasound 12/03- percutaneous cholecystostomy tube placement 12/05-patient of CRRT, completion 12/07 Urinary Catheter: Yes Peterson insert reason: Measure Accurate Output Date of Insertion: Dec 02, 2016 Line: Central Venous Catheter Side: Left Location: Femoral A/P Assessment and Plan ASSESSMENT This is a critically ill-appearing 71-year-old female in moderate distress with severe abdominal pain presenting with art hiatal hernia and diverticulitis with septic shock ,cardiogenic shock, multisystem organ dysfunction, requiring aggressive vasopressor support. Now with acute renal failure currently on CRRT .Guarded prognosis. Abdominal pain Hiatal hernia Diverticulitis Cholelithiasis with cholecystitis Transaminitis Nausea Hyperlipidemia Hypertension History of AK Coronary artery disease-S/P angioplasty 2 History of systolic CHF Acute hypoxemic respiratory failure Probable community-acquired pneumonia Hypokalemia Alcohol use disorder Elevated creatinine Pancytopenia Transaminitis Acute renal failure Multisystem organ failure secondary to septic shock Acute decompensated systolic heart failure Coagulopathy Bandemia Persistent leukocytosis Critical illness polyneuropathy PLAN Plan by systems: Neurologic: Neurochecks per ICU protocol Fentanyl and Versed infusions for ventilator synchrony- discontinue Versed Monitor for signs of alcohol withdrawal Daily sedation vacation-patient remains GCS 11 T Seizure precautions Tylenol 650 mg every 6 hours when necessary for temp greater than 101 Thiamine , folate and MVI Respiratory: Maintain O2 sat greater than 92% Bronchodilators 36 hours scheduled, every 2 hours PRN 12/02-intubation 7.5 ETT Ventilator bundle 12/05- bicarbonate infusion discontinued 12/05 Chest [id number] right basilar opacity, left lower lobe pneumonia versus atelectasis, small left pleural effusion 12/07 begin CPAP trials Cardiovascular: Initial troponin 0.07->0.11->0.49. Possibly secondary to acute Kidney injury, and low-flow cardiac output state 12/04 echo results-EF 50% Telemetry showing sinus rhythm Patient's being seen regularly by director of medical education in [place] MD , obtain cardiology records regarding function Echo 10/03/15 per cardiology medical records([place])-normal LV function,EF 56%, mild septal LVH, mild TR, mild PAH Patient's home meds include ASA 81mg, Metoprolol 50 mg ER (recently discontinued secondary to hypotension by director of medical education 3 weeks ago) will not restart secondary to hemodynamic instability, Rosvustatin at this time will not continue secondary to elevated LFT's continue to trend. aspirin 81 mg- held- severe thrombocytopenia NYHA classification III-per previous records Lasix 20mg/day-on hold secondary to hemodynamic instability Flowtrac monitoring- continued CO ranging 4.4-4.8 12/07 vasopressors discontinued Renal: Last 24 hours urinary output- 325cc Avoid nephrotoxins, creatinine 2.4-> 2.6-> 3.4 today, omeprazole is continue Follow-up urine sodium, urine creatinine - FeNa 1.75 , no eosinophils Nephrology following-Dr. Carlos, patient may need hemodialysis await recommendations Review of medical records obtained from PCP baseline creatinine 1.3,PCP notes reveal patient had renal insufficiency CKD Stage 3 in the past Sodium bicarbonate infusion discontinued 12/05 12/05 initiation of CRRT -- Strict I/Os FEN/GI: Replete electrolytes Monitor BMP 12/05 F/U GI recommendations -insert Dobbhoff tube, or NG tube and begin trickle feeds 12/02 CT abdomen pelvis-diverticulosis without diverticulitis, large hiatal hernia, cholelithiasis, no acute process ultrasound abdomen-no biliary duct dilatation, cholelithiasis with cholecystitis trace pericholecystic fluid 12/03- percutaneous cholecystostomy drain AST 300-> 555 ALT 151> 259 Alk Phos 140-trending upward, percutaneous cholecystostomy draining (Bile- Enterococcus faecalis) Discussed with Dr. Pathak bile fluid-Enterococcus faecalis-no surgical intervention at this time, plan for tentative semi-elective versus elective cholecystectomy in the future Hold statin in the setting of elevated LFTs Repeat CT abd /pelvis -pending 12/04 BNP > 5000 -in the setting of acute renal failure, septic shock, and decompensated heart failure 12/07 CRRT discontinued patient will begin IHD 2 times a week Heme/ID: ID consulted-Dr. Ramos, and a box per ID recommendation 12/03 blood cultures-Enterobacter, Klebsiella pneumoniae, Escherichia coli 12/03 Legionella, influenza , pneumococcal antigen- negative 12/03 sputum culture-E coli 12/03: Bile fluid-Enterococcus faecalis Hematology oncology following INR 1.8-no active signs of bleeding 12/05 F/U HIT panel ,12/06 2 units of FFP per hematology recommendations 12/07 transfuse 2 units of platelets Endocrine: Glucose monitoring per ICU protocol -- SSI MSK: PT evaluation and treat Functional maintenance daily Prophylaxis: GI Prophylaxis Famotidine DVT Prophylaxis -- SCDs Heparin 5000 SQ BID (on Hold) Lines: PIV's x 2. Central line left IJ, Art line left femoral, right femoral Vas-Cath Dispo: Discussed with Dr. Black, Dr. Ramos (ID) MEDICAL BILLING ASSOCIATE at bedside, and patient's family This patient remains critically ill with one or more organ systems which are or may become a threat to life. I have spent in excess of 30 minutes discontinuously in the care and management of this patient. This time is exclusive of procedures, and includes, but is not limited to, evaluation of the patient, review of the medical record, discussions with family, consultants, nursing staff, or respiratory therapy, and documentation in the medical record. 12/04: Discussed case with , updated him on patient's medical status. All questions answered. Living will obtained. Palliative care consult initiated for clarification. 12/05: Patient alternate CODE STATUS no shocks no drugs no CPR, living will placed in chart. Aggressive measures continue, possible hemodialysis. Physician Quiana Haywood MD Dec 07, 2016 15:35
[2016-12-07] MEDS: LEVOFLOXACIN 500 MG PREMIX INJ 100 ML IV SCH (16:00)
[2016-12-07] MEDS ORDERED: CALCIUM GLUCONATE INJ 2 GM in SODIUM CHLORIDE 0.9% INJ 100 ML IV ONE (17:00)
[2016-12-07] MEDS: PIPERACIL-TAZO 2.25 GM PREMIX 50 ML IV SCH ×2 (17:54→22:10)
--- NOTE | 2016-12-07 20:39 | PD.PROCEDR ---
GI Procedure REFERRING PHYSICIAN Dr. Mendieta PROCEDURE PERFORMED EGD with NG tube placement INDICATION FOR PROCEDURE Placement of a feeding access in the form of an NG tube apparently bedside placements previously were all unsuccessful PROCEDURE: The procedure, risks and benefits were discussed with Ms. Clifton and informed consent was obtained. Anesthesia sedated her with Diprivan. She was placed in the left lateral decubitus position. EGD: The Pentax videoscope was introduced through the oropharynx and advanced to the second portion of the duodenum under direct visualization. Retroflexion was performed in the stomach. FINDINGS: The esophagus this appeared to be unremarkable The stomach this too appeared to be unremarkable except for a small hiatal hernia The duodenum this too appeared to be unremarkable with normal limits NG tube placed with endoscopic guidance into the stomach ESTIMATED BLOOD LOSS: None SPECIMENS REMOVED: None COMPLICATIONS: None IMPRESSION: Hiatal hernia Successful NG tube placement PLAN: Continue with current supportive care Okay to use NG tube for feeding and medications Greg Knight MD Dec 07, 2016 20:39
[2016-12-08] VITALS (24 sets, daily range): BP systolic 118–168; BP diastolic 65–93; PULSE 70–114; RESP 18; TEMP 97.7–98.8; O2SAT 96–100
[2016-12-08] MEDS: HYDROCORTISONE SOD SUCCINATE 100 MG VIAL IV PUSH SCH ×3 (01:37→16:26)
[2016-12-08] MEDS: CHLORHEXIDINE GLUCONATE 2 % 1 PACK (2 CLOTHS) TOP SCH (04:00)
[2016-12-08] MEDS: PIPERACIL-TAZO 2.25 GM PREMIX 50 ML IV SCH ×4 (04:07→23:17)
[2016-12-08 04:40] LABS: AUTOMATED NEUTROPHIL # 22.1 TH/MM3 (1.8-7.7); BASOPHIL % 0.1 % (0.0-2.0); HEMATOCRIT 24.8 % (35.0-46.0); HEMOGLOBIN 8.4 GM/DL (11.6-15.3); LYMPH % 5.5 % (9.0-44.0); LYMPHOCYTE # 1.4 TH/MM3 (1.0-4.8); MEAN CELL VOLUME 89.9 FL (80.0-100.0); MEAN CORPUSCULAR HEMOGLOBIN 30.3 PG (27.0-34.0); MEAN CORPUSCULAR HGB CONC 33.7 % (32.0-36.0); MEAN PLATELET VOLUME 9.9 FL (7.0-11.0); MONOCYTE # 1.2 TH/MM3 (0-0.9); NEUT % 89.4 % (16.0-70.0); PLATELET COUNT 69 TH/MM3 (150-450); RED BLOOD COUNT 2.76 MIL/MM3 (4.00-5.30); RED CELL DISTRIBUTION WIDTH 15.8 % (11.6-17.2); WHITE BLOOD COUNT 24.7 TH/MM3 (4.0-11.0)
[2016-12-08 06:06] LABS: ALBUMIN 1.9 GM/DL (3.4-5.0); BICARBONATE 20.6 MEQ/L (21.0-32.0); CALCIUM 6.6 MG/DL (8.5-10.1); CALCIUM-PROTEIN CORRECTED 7.5 MG/DL (8.5-10.1); CREATININE 3.42 MG/DL (0.50-1.00); MAGNESIUM 1.7 MG/DL (1.5-2.5); PHOSPHORUS 4.6 MG/DL (2.5-4.9); TOTAL BILIRUBIN ADULT 3.8 MG/DL (0.2-1.0); TOTAL PROTEIN 5.3 GM/DL (6.4-8.2)
[2016-12-08 07:06] LABS: BANDS 1 % (0-6); LYMPHOCYTES 7 % (9-44); MONOCYTES 3 % (0-8); NEUTROPHIL # MANUAL DIFF 22.2 TH/MM3 (1.8-7.7); POLYS (SEG NEUTROPHILS) 89 % (16-70)
[2016-12-08] MEDS: INSULIN NovoLIN REGULAR SUPPLEMENTAL SCALE SQ SCH ×4 (08:00→21:00)
[2016-12-08] MEDS: SODIUM CHLORIDE 0.9% FLUSH 10 ML FLUSH IV FLUSH SCH ×3 (08:00→22:04)
[2016-12-08] MEDS: fentaNYL DRIP 250 ML IV PRN (09:15)
--- NOTE | 2016-12-08 09:32 | HHI.GIFU ---
Subjective Remarks Resting in bed. Sedated on vent. Off pressors. Off CVVHD. Started on HD today. OGT was placed yesterday, has TF going at 10cc/hr (Danica Shipley) Objective Vitals I&O Vital Signs Date Time Temp Pulse Resp B/P (MAP) Pulse Ox O2 Delivery O2 Flow Rate FiO2 12/08/16 07:32 98.0 77 18 133/70 100 12/08/16 07:22 100 35 12/08/16 07:14 97.8 80 18 139/74 100 12/08/16 06:47 97.7 74 18 136/71 100 12/08/16 06:00 79 12/08/16 04:00 35 12/08/16 04:00 100 35 12/08/16 04:00 71 12/08/16 04:00 74 130/82 (98) 128/72 (90) 12/08/16 04:00 97.7 71 18 130/82 (98) 100 148/84 (105) 12/08/16 02:00 72 12/08/16 00:30 100 35 12/08/16 00:00 97.8 73 18 124/81 (95) 100 141/83 (102) 12/08/16 00:00 35 12/08/16 00:00 73 12/08/16 00:00 73 124/81 (95) 141/83 (102) 12/07/16 22:00 78 12/07/16 21:45 100 35 12/07/16 20:00 79 12/07/16 20:00 79 130/79 (96) 135/75 (95) 12/07/16 20:00 35 12/07/16 20:00 98.0 79 18 130/79 (96) 100 135/75 (95) 12/07/16 20:00 98.0 12/07/16 19:50 100 35 12/07/16 19:00 77 12/07/16 19:00 77 21 126/79 (95) 100 135/72 (93) 12/07/16 18:00 75 12/07/16 18:00 75 20 129/77 (94) 100 130/71 (90) 12/07/16 18:00 97.7 75 20 129/77 100 12/07/16 17:49 97.7 68 21 128/66 100 12/07/16 17:00 74 21 121/77 (92) 100 140/79 (99) 12/07/16 17:00 74 12/07/16 16:45 96 35 12/07/16 16:00 72 12/07/16 16:00 35 12/07/16 16:00 97.0 72 21 113/73 (86) 129/74 (92) 12/07/16 15:00 69 22 120/72 (88) 100 132/74 (93) 12/07/16 15:00 69 12/07/16 14:00 74 18 113/70 (84) 89 132/76 (94) 12/07/16 14:00 74 12/07/16 13:00 69 12/07/16 13:00 69 21 112/70 (84) 100 129/73 (91) 12/07/16 12:01 95 35 12/07/16 12:00 35 12/07/16 12:00 97.7 72 23 113/73 (86) 100 133/76 (95) 12/07/16 12:00 72 12/07/16 10:00 72 I/O 12/07/16 12/07/16 12/07/16 12/08/16 12/08/16 12/08/16 07:00 15:00 23:00 07:00 15:00 23:00 Intake Total 100 ml 1125.2 ml 2038 ml 152 ml 287 ml Output Total 157 ml 50 ml 226 ml Balance -57 ml 1125.2 ml 1988 ml -74 ml 287 ml Intake IV Total 100 ml 1125.2 ml 544 ml 50 ml Tube Feeding 102 ml Platelets 295 ml 287 ml Blood Product IV Normal Saline Flush 999 ml Other 200 ml Output Urine Total 75 ml 50 ml 200 ml Stool Total 2 ml 0 ml 2 ml Drainage Total 80 ml 24 ml Laboratory Laboratory Tests Test 12/07/16 11:30 12/08/16 00:45 12/08/16 04:12 12/08/16 05:27 Prothrombin Time 14.0 Prothromb Time International Ratio 1.3 Activated Partial Thromboplast Time 36.4 Fibrinogen 213 Ammonia LESS THAN 10 White Blood Count 24.7 Red Blood Count 2.76 Hemoglobin 8.4 Hematocrit 24.8 Mean Corpuscular Volume 89.9 Mean Corpuscular Hemoglobin 30.3 Mean Corpuscular Hemoglobin Concent 33.7 Red Cell Distribution Width 15.8 Platelet Count 69 Mean Platelet Volume 9.9 Neutrophils (%) (Auto) 89.4 Lymphocytes (%) (Auto) 5.5 Monocytes (%) (Auto) 5.0 Eosinophils (%) (Auto) 0.0 Basophils (%) (Auto) 0.1 Neutrophils # (Auto) 22.1 Lymphocytes # (Auto) 1.4 Monocytes # (Auto) 1.2 Eosinophils # (Auto) 0.0 Basophils # (Auto) 0.0 CBC Comment AUTO DIFF Differential Total Cells Counted 100 Neutrophils % (Manual) 89 Band Neutrophils % 1 Lymphocytes % 7 Monocytes % 3 Neutrophils # (Manual) 22.2 Differential Comment FINAL DIFF MANUAL Platelet Estimate LOW Platelet Morphology Comment ENLARGED Red Cell Morphology Comment NORMAL Blood Urea Nitrogen 51 Creatinine 3.42 Random Glucose 154 Total Protein 5.3 Albumin 1.9 Calcium Level 6.6 Phosphorus Level 4.6 Magnesium Level 1.7 Alkaline Phosphatase 224 Aspartate Amino Transf (AST/SGOT) 191 Alanine Aminotransferase (ALT/SGPT) 143 Total Bilirubin 3.8 Sodium Level 140 Potassium Level 4.0 Chloride Level 107 Carbon Dioxide Level 20.6 Anion Gap 12 Estimat Glomerular Filtration Rate 13 Protein Corrected Calcium 7.5 Blood Gas Puncture Site ART LINE Blood Gas Patient Temperature 98.6 Blood Gas HCO3 19 Blood Gas Base Excess -5.3 Blood Gas Oxygen Saturation 95 Arterial Blood pH 7.40 Arterial Blood Partial Pressure CO2 31 Arterial Blood Partial Pressure O2 110 Arterial Blood Oxygen Content 11.7 Arterial Blood Carboxyhemoglobin 1.4 Arterial Blood Methemoglobin 1.3 Blood Gas Hemoglobin 8.6 Oxygen Delivery Device VENTILATOR Blood Gas Ventilator Setting PRVC/AC Blood Gas Inspired Oxygen 35 Date/Time Source Procedure Growth Status 12/02/16 12:40 Blood Peripheral Aerobic Blood Culture - Final Klebsiella Pneumoniae Escherichia Coli Enterobacter Species Complete 12/02/16 12:40 Anaerobic Blood Culture - Final Klebsiella Pneumoniae Escherichia Coli Enterobacter Species Complete 12/03/16 14:55 Fluid Bile Fluid Gram Stain - Final Complete 12/03/16 14:55 Body Fluid Culture - Final Enterococcus Faecalis Complete 12/03/16 10:15 Sputum Endotracheal Gram Stain - Final Complete 12/03/16 10:15 Sputum Culture - Final Escherichia Coli Complete 12/03/16 09:40 Urine Catheterized Urine Streptococcus pneumoniae Antigen (M - Final PRESUMPTIVE NEGATIVE FOR STREPTOCOCCU... Complete Imaging Last Impressions Chest X-Ray 12/07/16 0600 Signed Impressions: Service Date/Time: Wednesday, December 07, 2016 04:20 - CONCLUSION: 1. Bibasilar consolidation greater on the left, stable. 2. Interstitial edema. Sourav Arreola MD Abdomen X-Ray 12/06/16 0000 Signed Impressions: Service Date/Time: November 16:24 - CONCLUSION: Feeding tube distal tip overlies the right lower lung zone and is possibly within the airway. Therefore, suggest repositioning. Fermin Acosta MD Abdomen/Pelvis CT 12/04/16 0600 Signed Impressions: Service Date/Time: Sunday, December 04, 2016 09:35 - CONCLUSION: 1. Interval placement of a cholecystostomy tube. 2. Bibasilar consolidation likely related to atelectasis. This is unchanged. 3. Tip of the NG tube in the hiatal hernia. 4. Small volume ascites. 5. No acute abnormality observed. Nain Sharma Jr., MD Percutaneous Cholangiogram 12/03/16 0000 Signed Impressions: Service Date/Time: Saturday, December 03, 2016 14:31 - CONCLUSION: Uncomplicated percutaneous cholecystostomy as above. Nain Sharma Jr., MD Liver Ultrasound 12/02/16 0000 Signed Impressions: Service Date/Time: Friday, December 02, 2016 19:12 - CONCLUSION: 1. Cholelithiasis with wall thickening and trace pericholecystic fluid. 2. No evidence of biliary duct distention. 3. No other significant abnormality. Jak Hughes MD Physical Exam GEN: Sedated on vent. Getting HD HEENT: Normocephalic; atraumatic; no jaundice. CHEST: Resp even/unlabored, OETT to vent. Diminished. CARDIAC: RRR ABDOMEN: Soft, mildly distended, cholecystomy tube patent draining, bowel sounds are hypoactive EXTREMITIES: Generalized edema. SKIN: Normal; no rash; no jaundice. KIER PLEATER: Sedated on vent. (Danica Shipley) Assessment and Plan Plan ASSESSMENT: - Cholecystitis. CT scan abdomen and pelvis without iv contrast (12/02/16)---> No evidence of acute abdominal or pelvic process. No masses are identified. Cholelithiasis. Left lower lobe atelectasis versus pneumonia, a large hiatal hernia is present, diverticulosis without evidence of diverticulitis. Liver US (12/02/16)---> Cholelithiasis with wall thickening and trace pericholecystic fluid, no evidence of biliary duct distention, no other significant abnormality. Bacteremia with multiple organisms. GS following, s/p cholecystomy tube 12/03. Zosyn, Levaquin, T. BIli 3.8, AST 191, ALT 143, Alk Phosph 224. - FEN/Malnutrition. Nurse was unable to place OGT (would not advance). Attempt at NGT/Dobbhoff was unsuccessful. S/P EGD with OGT placement (12/07/16)----> Hiatal hernia. Successful OG tube placement. TF going at 10cc/hr. - Epistaxis. (after attempted Dobbhoff placement) resolved. - Thrombocytopenia, Coagulopathy. S/P 2 units of FFP. HIT negative - Elevated LFTs. No evidence of biliary duct obstruction. No evidence of pancreatitis or dilated ducts on imaging. Unclear if this is all cholecystis, or passed stone, or possible ETOH and cholecystitis. S/P Cholecystomy tube. Hepatitis profile negative, HERBER negative, AMA <20.0, ASMA neg, Iron saturation 2.7%, Ferritin 306, ALpha 1 antitrypsin 209, Ceruloplasmin 32, AFP. LFTs improving T. BIli 3.8, AST 191, ALT 143, Alk Phosph 224. - Severe sepsis with multisystem failure. BCx from 12/02/16 grew enterobacter species, klebsiella pneumoniae, escherichia coli, and GNR in the anaerobic bottle. Bile cx Group D Enterococcus. Sputum Cx E. Coli. Zosyn, Levaquin - Anemia. HH 8.4/24.8. - Abdominal pain, nausea, decreased appetite. Likely related to cholecystis. Currently sedated. - ARF with severe electrolyte abnormalities. Pt was started on CVVHD, b/p stable on pressors at this time. - Resp. Failure/PNA. CXR LLL atelectasis vs. pna, resolving right basilar atelectasis. Cx E. Coli. vent per [facility] - Chronic back pain r/t scoliosis. Uses medical marijuana via vaping and takes 4 shots of scotch per day to help with her pain control. Last had these 2 weeks ago. - CAD, Hx HTN, Hyperlipidemia per attending. PLAN: - TF via OGT - Abx per ID recommendations - S/P Cholecystomy tube placement by IR (12/03) - Consider MRCP when more stable if worsening of LFTs - Monitor labs - Supportive care - Further recommendations to follow based on results of above - Pt seen and examined by Dr. Knight and myself and this note is written on his behalf (Danica Shipley) Physician Comments Patient seen and examined Agree with above Continue with current supportive care Monitor labs (Greg Knight MD) Danica Shipley Dec 08, 2016 09:32 Greg Knight MD Dec 08, 2016 18:31
[2016-12-08] MEDS: EPOETIN ALFA 10,000 UNITS/ML VIAL IV PUSH PRN (12:19)
[2016-12-08] MEDS: GENTAMICIN SULFATE (DIALYSIS USE ONLY) 20 MG/2 ML VIAL OTHER PRN (12:19)
[2016-12-08] MEDS: SODIUM CHLOR 0.9% 1000 ML INJ 1,000 ML OTHER PRN (12:21)
--- NOTE | 2016-12-08 12:27 | HHI.NPPN ---
Subjective History of Present Illness 71 year old with septic shock, ARF Additional Remarks Patient is now on HD, remain intubated, open eyes. Objective Data Data 12/08/16 12/09/16 19:00 07:00 Intake Total 287 ml Balance 287 ml Platelets 287 ml Vital Signs Date Time Temp Pulse Resp B/P (MAP) Pulse Ox O2 Delivery O2 Flow Rate FiO2 12/08/16 09:57 100 35 12/08/16 08:00 98.0 73 18 132/79 (96) 100 138/73 (94) 12/08/16 08:00 73 12/08/16 08:00 73 132/79 (96) 138/73 (94) 12/08/16 08:00 35 12/08/16 07:32 98.0 77 18 133/70 100 12/08/16 07:22 100 35 12/08/16 07:14 97.8 80 18 139/74 100 12/08/16 06:47 97.7 74 18 136/71 100 12/08/16 06:00 79 12/08/16 04:00 35 12/08/16 04:00 100 35 12/08/16 04:00 71 12/08/16 04:00 74 130/82 (98) 128/72 (90) 12/08/16 04:00 97.7 71 18 130/82 (98) 100 148/84 (105) 12/08/16 02:00 72 12/08/16 00:30 100 35 12/08/16 00:00 97.8 73 18 124/81 (95) 100 141/83 (102) 12/08/16 00:00 35 12/08/16 00:00 73 12/08/16 00:00 73 124/81 (95) 141/83 (102) 12/07/16 22:00 78 12/07/16 21:45 100 35 12/07/16 20:00 79 12/07/16 20:00 79 130/79 (96) 135/75 (95) 12/07/16 20:00 35 12/07/16 20:00 98.0 79 18 130/79 (96) 100 135/75 (95) 12/07/16 20:00 98.0 12/07/16 19:50 100 35 12/07/16 19:00 77 12/07/16 19:00 77 21 126/79 (95) 100 135/72 (93) 12/07/16 18:00 75 12/07/16 18:00 75 20 129/77 (94) 100 130/71 (90) 12/07/16 18:00 97.7 75 20 129/77 100 12/07/16 17:49 97.7 68 21 128/66 100 12/07/16 17:00 74 21 121/77 (92) 100 140/79 (99) 12/07/16 17:00 74 12/07/16 16:45 96 35 12/07/16 16:00 72 12/07/16 16:00 35 12/07/16 16:00 97.0 72 21 113/73 (86) 129/74 (92) 12/07/16 15:00 69 22 120/72 (88) 100 132/74 (93) 12/07/16 15:00 69 12/07/16 14:00 74 18 113/70 (84) 89 132/76 (94) 12/07/16 14:00 74 12/07/16 13:00 69 12/07/16 13:00 69 21 112/70 (84) 100 129/73 (91) -: 12/08/16 0412 12/08/16 0412 Physical Exam General Appearance Remarks Intubated and open eyes. Neck Neck Exam: Neck Supple Pulmonary Resp Exam: Clear Bilaterally Cardiology CV Exam: Regular Gastrointestinal/Abdomen GI Exam: Soft, Bowel Sounds Present, Non-Distended Integumentary Skin Exam: Clear Extremeties Extremities Exam: Moderate Edema, Pitting Edema, Dependent Edema Assessment/Plan Problem List: (1) Acute kidney injury ICD Codes: N17.9 - Acute kidney failure, unspecified Status: Acute Plan: Patient has septic shock and acute tubular necrosis making small amount of urine, check urine sodium and osmolality and creatinine Continue supportive care with IV fluids and antibiotics and vasopressors If conservative approach fails to reverse the ARF Continue to monitor avoid Nephrotoxins. Patient now started on intermittent HD, tolerating so far. Continue HD as needed. (2) Acute cholecystitis ICD Codes: K81.0 - Acute cholecystitis Plan: Status post cholecystostomy (3) Sepsis ICD Codes: A41.9 - Sepsis, unspecified organism Status: Acute Plan: On antibiotics Problem Qualifiers (1) Sepsis: Qualified Codes: A41.9 - Sepsis, unspecified organism Otf Boyle MD Dec 08, 2016 12:27
[2016-12-08] MEDS: ALBUMIN 25% INJ 100 ML IV PRN (12:38)
--- NOTE | 2016-12-08 12:50 | PD.ONC.PN ---
Subjective Subjective Remarks awake and responsive and undergoing dialysis Objective Data Date Time Temp Pulse Resp B/P (MAP) Pulse Ox O2 Delivery O2 Flow Rate FiO2 12/08/16 12:00 98.8 76 18 118/74 (89) 97 123/65 (84) 12/08/16 12:00 76 12/08/16 12:00 35 12/08/16 12:00 76 118/74 (89) 123/65 (84) 12/08/16 10:00 75 12/08/16 09:57 100 35 12/08/16 08:00 98.0 73 18 132/79 (96) 100 138/73 (94) 12/08/16 08:00 73 12/08/16 08:00 73 132/79 (96) 138/73 (94) 12/08/16 08:00 35 12/08/16 07:32 98.0 77 18 133/70 100 12/08/16 07:22 100 35 12/08/16 07:14 97.8 80 18 139/74 100 12/08/16 06:47 97.7 74 18 136/71 100 12/08/16 06:00 79 12/08/16 04:00 35 12/08/16 04:00 100 35 12/08/16 04:00 71 12/08/16 04:00 74 130/82 (98) 128/72 (90) 12/08/16 04:00 97.7 71 18 130/82 (98) 100 148/84 (105) 12/08/16 02:00 72 12/08/16 00:30 100 35 12/08/16 00:00 97.8 73 18 124/81 (95) 100 141/83 (102) 12/08/16 00:00 35 12/08/16 00:00 73 12/08/16 00:00 73 124/81 (95) 141/83 (102) 12/07/16 22:00 78 12/07/16 21:45 100 35 12/07/16 20:00 79 12/07/16 20:00 79 130/79 (96) 135/75 (95) 12/07/16 20:00 35 12/07/16 20:00 98.0 79 18 130/79 (96) 100 135/75 (95) 12/07/16 20:00 98.0 12/07/16 19:50 100 35 12/07/16 19:00 77 12/07/16 19:00 77 21 126/79 (95) 100 135/72 (93) 12/07/16 18:00 75 12/07/16 18:00 75 20 129/77 (94) 100 130/71 (90) 12/07/16 18:00 97.7 75 20 129/77 100 12/07/16 17:49 97.7 68 21 128/66 100 12/07/16 17:00 74 21 121/77 (92) 100 140/79 (99) 12/07/16 17:00 74 12/07/16 16:45 96 35 12/07/16 16:00 72 12/07/16 16:00 35 12/07/16 16:00 97.0 72 21 113/73 (86) 129/74 (92) 12/07/16 15:00 69 22 120/72 (88) 100 132/74 (93) 12/07/16 15:00 69 12/07/16 14:00 74 18 113/70 (84) 89 132/76 (94) 12/07/16 14:00 74 12/07/16 13:00 69 12/07/16 13:00 69 21 112/70 (84) 100 129/73 (91) 12/08/16 12/08/16 12/08/16 07:00 15:00 23:00 Intake Total 152 ml 287 ml Output Total 226 ml Balance -74 ml 287 ml Result Diagram: 12/08/16 0412 12/08/16 0412 Laboratory Results Laboratory Tests Test 12/08/16 00:45 12/08/16 04:12 12/08/16 05:27 Ammonia LESS THAN 10 MCMOL/L White Blood Count 24.7 TH/MM3 Red Blood Count 2.76 MIL/MM3 Hemoglobin 8.4 GM/DL Hematocrit 24.8 % Mean Corpuscular Volume 89.9 FL Mean Corpuscular Hemoglobin 30.3 PG Mean Corpuscular Hemoglobin Concent 33.7 % Red Cell Distribution Width 15.8 % Platelet Count 69 TH/MM3 Mean Platelet Volume 9.9 FL Neutrophils (%) (Auto) 89.4 % Lymphocytes (%) (Auto) 5.5 % Monocytes (%) (Auto) 5.0 % Eosinophils (%) (Auto) 0.0 % Basophils (%) (Auto) 0.1 % Neutrophils # (Auto) 22.1 TH/MM3 Lymphocytes # (Auto) 1.4 TH/MM3 Monocytes # (Auto) 1.2 TH/MM3 Eosinophils # (Auto) 0.0 TH/MM3 Basophils # (Auto) 0.0 TH/MM3 CBC Comment AUTO DIFF Differential Total Cells Counted 100 Neutrophils % (Manual) 89 % Band Neutrophils % 1 % Lymphocytes % 7 % Monocytes % 3 % Neutrophils # (Manual) 22.2 TH/MM3 Differential Comment FINAL DIFF MANUAL Platelet Estimate LOW Platelet Morphology Comment ENLARGED Red Cell Morphology Comment NORMAL Blood Urea Nitrogen 51 MG/DL Creatinine 3.42 MG/DL Random Glucose 154 MG/DL Total Protein 5.3 GM/DL Albumin 1.9 GM/DL Calcium Level 6.6 MG/DL Phosphorus Level 4.6 MG/DL Magnesium Level 1.7 MG/DL Alkaline Phosphatase 224 U/L Aspartate Amino Transf (AST/SGOT) 191 U/L Alanine Aminotransferase (ALT/SGPT) 143 U/L Total Bilirubin 3.8 MG/DL Sodium Level 140 MEQ/L Potassium Level 4.0 MEQ/L Chloride Level 107 MEQ/L Carbon Dioxide Level 20.6 MEQ/L Anion Gap 12 MEQ/L Estimat Glomerular Filtration Rate 13 ML/MIN Protein Corrected Calcium 7.5 MG/DL Blood Gas Puncture Site ART LINE Blood Gas Patient Temperature 98.6 Blood Gas HCO3 19 mmol/L Blood Gas Base Excess -5.3 mmol/L Blood Gas Oxygen Saturation 95 % Arterial Blood pH 7.40 Arterial Blood Partial Pressure CO2 31 mmHg Arterial Blood Partial Pressure O2 110 mmHg Arterial Blood Oxygen Content 11.7 Vol % Arterial Blood Carboxyhemoglobin 1.4 % Arterial Blood Methemoglobin 1.3 % Blood Gas Hemoglobin 8.6 G/DL Oxygen Delivery Device VENTILATOR Blood Gas Ventilator Setting PRVC/AC Blood Gas Inspired Oxygen 35 % Administered Medications Medications (Trade) Dose Ordered Sig/Dhruv Route PRN Reason Start Time Stop Time Status Last Admin Dose Admin Sodium Chloride (NS Flush) 2 ml UNSCH PRN IV FLUSH FLUSH AFTER USING IV ACCESS 12/02/16 16:15 12/06/16 20:52 Sodium Chloride (NS Flush) 2 ml BID IV FLUSH 12/02/16 21:00 12/07/16 21:21 Famotidine (Pepcid Inj) 20 mg DAILY IV PUSH 12/02/16 21:00 12/07/16 08:42 Heparin Sodium (Porcine) (Heparin Inj) 5,000 units Q12H SQ 12/02/16 17:00 Future Hold 12/04/16 04:28 Miscellaneous Information 1 [id number] XX 12/02/16 16:15 12/02/16 16:15 Chlorhexidine Gluconate (Chlorhexidine 2% Cloth) Taper DAILY@04 TOP 12/03/16 04:00 11/29/17 03:59 12/07/16 04:00 Senna/Docusate Sodium (Keely-Colace) 1 tab BID PO 12/02/16 21:00 12/05/16 08:20 Insulin Human Regular (NovoLIN R SUPPLEMENTAL SCALE) 1 ACHS SLIDING SCALE SQ 12/02/16 17:00 12/07/16 21:00 Lorazepam (Ativan Inj) 1 mg Q4H PRN IV PUSH ANXIETY 12/02/16 16:45 12/02/16 20:23 Chlorhexidine Gluconate (Peridex 0.12% Liq) 15 ml BID@08,20 MT 12/03/16 08:00 12/07/16 21:21 Fentanyl Citrate 250 ml @ 5 mls/hr TITRATE PRN IV SEDATION 12/02/16 22:15 12/08/16 09:15 Norepinephrine Bitartrate 4 mg/ Sodium Chloride 250 ml @ 7.5 mls/hr TITRATE PRN IV Blood pressure management 12/02/16 22:15 12/06/16 04:34 Sodium Chloride (NS Flush) DAILY IV FLUSH 12/03/16 09:00 12/06/16 08:19 Sodium Chloride (NS Flush) UNSCH PRN IV FLUSH SEE PROTOCOL 12/02/16 23:15 12/06/16 20:52 Hydrocortisone Sodium Succinate (SoluCORTEF INJ) 100 mg Q8H IV PUSH 12/03/16 09:00 12/08/16 01:37 Artificial Tears (Tears Naturale Opth Soln) 1 drop Q8HR PRN EACH EYE DRY EYE 12/03/16 08:15 12/04/16 17:22 Phenylephrine HCl 80 mg/Dextrose 500 ml @ 15 mls/hr TITRATE PRN IV Blood pressure Management 12/03/16 17:15 12/06/16 04:35 Multivitamins 10 ml/Folic Acid 1 mg/Sodium Chloride 510.2 ml @ 125 mls/hr Q24H IV 12/04/16 10:00 12/09/16 09:59 12/07/16 09:18 Sodium Chloride 1,000 ml @ 0 mls/hr UNSCH PRN OTHER SEE LABEL COMMENTS 12/05/16 17:30 12/07/16 02:14 Sodium Chloride 1,000 ml @ 0 mls/hr Q0M PRN OTHER For Prime & Rinse Back 12/07/16 10:56 12/08/16 12:21 Gentamicin Sulfate (Gentamicin (Dialysis) Inj) 20 mg UNSCH PRN OTHER WITH DIALYSIS 12/07/16 11:00 12/08/16 12:19 Epoetin Ronald (Epogen Inj) 10,000 units UNSCH PRN IV PUSH WITH DIALYSIS 12/07/16 11:00 12/08/16 12:19 Piperacillin Sod/ Tazobactam Sod 50 ml @ 100 mls/hr Q6H IV 12/07/16 17:00 12/08/16 04:07 Levofloxacin/ Dextrose 100 ml @ 100 mls/hr Q48H IV 12/07/16 16:00 12/07/16 16:00 Objective Remarks GENERAL: edematous and with anasarca SKIN: Warm and dry. HEAD: Normocephalic. EYES: No scleral icterus. No injection or drainage. NECK: Supple, trachea midline. No JVD or lymphadenopathy. LYMPHATIC: No adenopathy. CARDIOVASCULAR: Regular rate and rhythm without murmurs. RESPIRATORY: Breath sounds equal bilaterally. No accessory muscle use. GASTROINTESTINAL: Abdomen soft, non-tender, nondistended. EXTREMITIES: +2 edema MUSCULOSKELETAL: poor muscle tone. NEUROLOGICAL: No obvious focal deficit. Awake but not able to communicate . Assessment/Plan Assessment 1: thrombocytopenia, PT, PTT improving and are a result of sepsis with multiple organisms and will continue to improve as infection resolves. Nothing else to do except provide support with dialysis, antibiotics and time. will follow the cbc plat Brenton Zepeda MD Dec 08, 2016 12:50
[2016-12-08 13:14] LABS: INTERNATIONAL NORMALIZED RATIO 1.3 RATIO; PROTHROMBIN TIME - PATIENT 14.3 SEC (9.8-11.6)
[2016-12-08] MEDS: FAMOTIDINE 20 MG/2 ML VIAL IV PUSH SCH (15:06)
[2016-12-08] MEDS: DOCUSATE SODIUM 50 MG/SENNA 8.6 MG TAB PO SCH ×2 (15:14→21:00)
--- NOTE | 2016-12-08 16:19 | HHI.IDPN ---
Subjective Subjective Remarks clinically remains the same anuric, on HD afebrile with a trend for hypothermia of pressors On vent Antibiotics zosyn' levaquine Allergies: Coded Allergies: No Known Allergies (Unverified , 12/02/16) Objective . Vital Signs Date Time Temp Pulse Resp B/P (MAP) Pulse Ox O2 Delivery O2 Flow Rate FiO2 12/08/16 16:04 97 35 12/08/16 14:00 77 12/08/16 12:49 96 35 12/08/16 12:00 98.8 76 18 118/74 (89) 97 123/65 (84) 12/08/16 12:00 76 12/08/16 12:00 35 12/08/16 12:00 76 118/74 (89) 123/65 (84) 12/08/16 10:00 75 12/08/16 09:57 100 35 12/08/16 08:00 98.0 73 18 132/79 (96) 100 138/73 (94) 12/08/16 08:00 73 12/08/16 08:00 73 132/79 (96) 138/73 (94) 12/08/16 08:00 35 12/08/16 07:32 98.0 77 18 133/70 100 12/08/16 07:22 100 35 12/08/16 07:14 97.8 80 18 139/74 100 12/08/16 06:47 97.7 74 18 136/71 100 12/08/16 06:00 79 12/08/16 04:00 35 12/08/16 04:00 100 35 12/08/16 04:00 71 12/08/16 04:00 74 130/82 (98) 128/72 (90) 12/08/16 04:00 97.7 71 18 130/82 (98) 100 148/84 (105) 12/08/16 02:00 72 12/08/16 00:30 100 35 12/08/16 00:00 97.8 73 18 124/81 (95) 100 141/83 (102) 12/08/16 00:00 35 12/08/16 00:00 73 12/08/16 00:00 73 124/81 (95) 141/83 (102) 12/07/16 22:00 78 12/07/16 21:45 100 35 12/07/16 20:00 79 12/07/16 20:00 79 130/79 (96) 135/75 (95) 12/07/16 20:00 35 12/07/16 20:00 98.0 79 18 130/79 (96) 100 135/75 (95) 12/07/16 20:00 98.0 12/07/16 19:50 100 35 12/07/16 19:00 77 12/07/16 19:00 77 21 126/79 (95) 100 135/72 (93) 12/07/16 18:00 75 12/07/16 18:00 75 20 129/77 (94) 100 130/71 (90) 12/07/16 18:00 97.7 75 20 129/77 100 12/07/16 17:49 97.7 68 21 128/66 100 12/07/16 17:00 74 21 121/77 (92) 100 140/79 (99) 12/07/16 17:00 74 12/07/16 16:45 96 35 12/08/16 12/08/16 12/09/16 15:00 23:00 07:00 Intake Total 287 ml Output Total 3000 ml Balance -2713 ml Platelets 287 ml Hemodialysis 3000 ml . Laboratory Tests Test 12/07/16 04:12 12/08/16 04:12 White Blood Count 19.9 TH/MM3 24.7 TH/MM3 Red Blood Count 2.72 MIL/MM3 2.76 MIL/MM3 Hemoglobin 8.3 GM/DL 8.4 GM/DL Hematocrit 24.4 % 24.8 % Mean Corpuscular Volume 89.6 FL 89.9 FL Mean Corpuscular Hemoglobin 30.4 PG 30.3 PG Mean Corpuscular Hemoglobin Concent 34.0 % 33.7 % Red Cell Distribution Width 15.6 % 15.8 % Platelet Count 32 TH/MM3 69 TH/MM3 Mean Platelet Volume 9.1 FL 9.9 FL CBC Comment AUTO DIFF AUTO DIFF Differential Total Cells Counted 100 100 Neutrophils % (Manual) 86 % 89 % Band Neutrophils % 3 % 1 % Lymphocytes % 4 % 7 % Monocytes % 7 % 3 % Neutrophils # (Manual) 17.7 TH/MM3 22.2 TH/MM3 Differential Comment FINAL DIFF MANUAL FINAL DIFF MANUAL Platelet Estimate LOW LOW Platelet Morphology Comment NORMAL ENLARGED Red Cell Morphology Comment NORMAL NORMAL Neutrophils (%) (Auto) 89.4 % Lymphocytes (%) (Auto) 5.5 % Monocytes (%) (Auto) 5.0 % Eosinophils (%) (Auto) 0.0 % Basophils (%) (Auto) 0.1 % Neutrophils # (Auto) 22.1 TH/MM3 Lymphocytes # (Auto) 1.4 TH/MM3 Monocytes # (Auto) 1.2 TH/MM3 Eosinophils # (Auto) 0.0 TH/MM3 Basophils # (Auto) 0.0 TH/MM3 Laboratory Tests Test 12/07/16 04:12 12/08/16 00:45 12/08/16 04:12 Blood Urea Nitrogen 31 MG/DL 51 MG/DL Creatinine 2.49 MG/DL 3.42 MG/DL Random Glucose 126 MG/DL 154 MG/DL Total Protein 5.0 GM/DL 5.3 GM/DL Albumin 1.9 GM/DL 1.9 GM/DL Calcium Level 6.0 MG/DL 6.6 MG/DL Phosphorus Level 3.2 MG/DL 4.6 MG/DL Magnesium Level 1.5 MG/DL 1.7 MG/DL Alkaline Phosphatase 157 U/L 224 U/L Aspartate Amino Transf (AST/SGOT) 325 U/L 191 U/L Alanine Aminotransferase (ALT/SGPT) 183 U/L 143 U/L Total Bilirubin 3.2 MG/DL 3.8 MG/DL Sodium Level 140 MEQ/L 140 MEQ/L Potassium Level 3.6 MEQ/L 4.0 MEQ/L Chloride Level 107 MEQ/L 107 MEQ/L Carbon Dioxide Level 20.4 MEQ/L 20.6 MEQ/L Anion Gap 13 MEQ/L 12 MEQ/L Estimat Glomerular Filtration Rate 19 ML/MIN 13 ML/MIN Protein Corrected Calcium 7.0 MG/DL 7.5 MG/DL Ammonia LESS THAN 10 MCMOL/L Imaging Last Impressions Chest X-Ray 12/07/16 0600 Signed Impressions: Service Date/Time: Wednesday, December 07, 2016 04:20 - CONCLUSION: 1. Bibasilar consolidation greater on the left, stable. 2. Interstitial edema. Sourav Arreola MD Abdomen X-Ray 12/06/16 0000 Signed Impressions: Service Date/Time: November 16:24 - CONCLUSION: Feeding tube distal tip overlies the right lower lung zone and is possibly within the airway. Therefore, suggest repositioning. Fermin Acosta MD Abdomen/Pelvis CT 12/04/16 0600 Signed Impressions: Service Date/Time: Sunday, December 04, 2016 09:35 - CONCLUSION: 1. Interval placement of a cholecystostomy tube. 2. Bibasilar consolidation likely related to atelectasis. This is unchanged. 3. Tip of the NG tube in the hiatal hernia. 4. Small volume ascites. 5. No acute abnormality observed. Nain Sharma Jr., MD Percutaneous Cholangiogram 12/03/16 0000 Signed Impressions: Service Date/Time: Saturday, December 03, 2016 14:31 - CONCLUSION: Uncomplicated percutaneous cholecystostomy as above. Nain Sharma Jr., MD Liver Ultrasound 12/02/16 0000 Signed Impressions: Service Date/Time: Friday, December 02, 2016 19:12 - CONCLUSION: 1. Cholelithiasis with wall thickening and trace pericholecystic fluid. 2. No evidence of biliary duct distention. 3. No other significant abnormality. Jak Hughes MD Physical Exam CONSTITUTIONAL/GENERAL: This is an adequately nourished patient, in no apparent distress. TUBES/LINES/DRAINS: biliary drain in place with small amount of cloudy dark brown bile SKIN: +prominent jaundice, rashes, or lesions. . Skin temperature appropriate. Not diaphoretic. HEAD: Atraumatic. Normocephalic. EYES: Pupils equal and round and reactive. + prominent scleral icterus. No injection or drainage. Fundi not examined. ENT: Hearing not assessed. Nose without bleeding or purulent drainage. Oraly intubated NECK: Trachea midline. Supple, nontender. CARDIOVASCULAR: Regular rate and rhythm without murmurs, gallops, or rubs. No JVD. Peripheral pulses symmetric. Perfusion diminished on b/l toes, on fingersd refill is brisk RESPIRATORY/CHEST: Symmetric, unlabored respirations. Clear to auscultation. Breath sounds equal bilaterally. No wheezes, rales, or rhonchi. GASTROINTESTINAL: Abdomen soft, no reaction to papation + distended. No hepato- splenomegaly, or palpable masses. Drain in place No guarding. Bowel sounds very hypoactive GENITOURINARY: Without palpable bladder distension. Peterson catheter in place with small amount of cloudy urine MUSCULOSKELETAL: Extremities without clubbing, cyanosis, + edema. No joint tenderness or effusion noted. No calf tenderness. No mottling or clubbing. NEUROLOGICAL: Sedated,unresponsive, does not follow commands of sedation PSYCHIATRIC: unabe to assess Assessment & Plan Remarks Billiary sepsis ? uncontrolled as of today WBC trending up, pts and fibrinogen down Multi-organ failure: acute VDRF ARF Hypotension, on pressors Gram negative sepsis - biliary Acute calculous cholecystitis sp cholecystostomy tube placement - growing enterococccus chirinos S and >=3 MIXED ENTERIC GRAM NEGATIVE RODS in the bile clx - not much drainage ? E.coli UTI vs colonisatrion ? PNA vs ARDS - growing E.coli in sputum R to zosyn Critical, unstable Leukocytosis, leukemoid reaction Plts are better today Fibrinogen trending down - in DIC? cont zosyn cont levaqine for zosyn R E.coli in the sputum reconsult gen surgery to reconsider surgical options [facility] @ [facility] Jina Ramos MD Dec 08, 2016 16:19
[2016-12-08] MEDS: MULTIVITAMIN INJ 10 ML, FOLIC ACID INJ 1 MG in SODIUM CHLORID 0.9% 500 ML INJ 500 ML IV SCH (16:25)
[2016-12-08] MEDS: CHLORHEXIDINE 0.12% (ORAL KIT) 15 ML CUP MT SCH ×2 (16:26→22:05)
--- NOTE | 2016-12-08 18:19 | RADRPT ---
EXAM DATE/TIME: 12/08/2016 17:52 [facility] COMPARISON: CT ABDOMEN & PELVIS W/O CONTRAST, December 04, 2016, 9:35. INDICATIONS : Aleah tube failing to drain. ORAL CONTRAST: No oral contrast ingested. RADIATION DOSE: 9.1 CTDIvol (mGy) MEDICAL HISTORY : Hypertension. SURGICAL HISTORY : None. ENCOUNTER: Initial ACUITY: 1 day PAIN SCALE: Non-responsive LOCATION: Bilateral abdomen TECHNIQUE: Volumetric scanning of the abdomen was performed. Using automated exposure control and adjustment of the mA and/or kV according to patient size, radiation dose was kept as low as reasonably achievable to obtain optimal diagnostic quality images. DICOM format image data is available electronically for review and comparison. FINDINGS: The images through the upper abdomen shows a cholecystostomy tube in good position within the lumen o f the gallbladder. Small bilateral pleural effusions and bibasilar consolidation are unchanged. Edema within the flanks. No free air or free fluid. CONCLUSION: 1. Cholecystostomy tube in good position. Nain Sharma Jr., MD on December 08, 2016 at 18:15 Board Certified Radiologist. This report was verified electronically.
--- NOTE | 2016-12-08 20:12 | HHI.CCPN ---
Subjective Remarks/Hospital Course This is a 71-year-old female presents to the ED via EMS for evaluation of fever , shortness breath, vomiting, diarrhea, abdominal pain She reports that she's been short of breath for the past 2 weeks, but has progressed in the past 2 days. Patient has been seeing a lead systems architect for her shortness of breath, is not on home oxygen. The patient reported she has a history of smoking. She is also complaining of abdominal pain that started 2 days ago with vomiting and diarrhea. Patient has severe tenderness to mild palpation. She has history of OH. She received 500 mL normal saline IV bolus, and Zofran 4 mg IV. Critical care medicine was consulted. Subjective: 12/03: Tmax 100.9. Last evening the patient was noted to have significant respiratory decompensation with requirement for emergent intubation. The patient subsequently became hemodynamically unstable requiring vasopressor support. Patient is lightly sedated, and continues to have abdominal pain, and hypoactive bowel sounds, GI has been consulted. HIDA scan previously scheduled for this morning, after discussion with Dr Goodrich , plan for cholecystostomy tube placement by IR. Ultrasound liver showed no biliary duct distention but notable thickened gallbladder wall. 12/04: Tmax 100.4. Patient continues with severe metabolic acidosis, sodium bicarbonate infusion increased to 150 cc/hour yesterday afternoon. Antibiotics were expanded yesterday with addition of Micafungin and Diflucan. Blood cultures resulted with Enterobacter, Klebsiella pneumoniae and Escherichia coli. ID consulted recommendations appreciated. Patient is status post placement of percutaneous cholecystostomy tube . Patient now icteric, but LFTs are trending down. Records obtained from primary care physician with cardiology reports from earlier in the year, patient with noted pulmonary hypertension and NYHA class III. In-hospital echo pending. Patient continues on 3 pressors to maintain blood pressure. 12/05: Patient has been weaned off of vasopressor continues on to agents Gurinder- Synephrine, norepinephrine at low doses. Patient noted to still be thrombocytopenic platelet count decreased today HIT panel pending. INR remains elevated no active signs of bleeding liver function enzymes remain elevated. No urine output over the last 12 hours nephrology following discussion with for possible hemodialysis, will await nephrology recommendations. Sodium bicarbonate infusion discontinued. Patient remains alert GCS 11 T. 12/06: Afebrile. The patient continues on CRRT initiated last night, tolerating it well patient continues only on phenylephrine infusion to maintain MAP. The patient received 2 units of FFP per hematology/oncology recommendations. 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 12/07: Afebrile. Vasopressors discontinued at 4 AM, CRRT completed, patient will be transitioned to IHD 2 times a week. Patient was noted to be severely thrombocytopenic platelet count 32 ,plan for transfusions of platelets, fibrinogen level decreasing. Bile specimen noted to result Enterococcus faecalis, contacted Dr. Portillo general surgery updated him discussion regarding elective versus semielective laparoscopic cholecystectomy ,informed that no surgical intervention indicated at this time. Cholecystostomy tube continues to drain. 12/08: Afebrile. The patient has been transitioned to IHD 2 times a week. 3 L removal of fluid today. The patient remains hemodynamically stable off of all vasopressors greater than 24 hours at this time. A chin continues to have persistent leukocytosis with elevation in WBC count and downward trend up fibrinogen level . Cholecystostomy tube low output, CT scan abdomen pending. General surgery reconsulted to review surgical options for patient. Objective Vital Signs Date Time Temp Pulse Resp B/P (MAP) Pulse Ox O2 Delivery O2 Flow Rate FiO2 12/08/16 17:50 97 35 12/08/16 14:00 77 12/08/16 12:00 98.8 18 118/74 (89) 123/65 (84) 12/04/16 20:41 Ventilator Intake and Output 12/08/16 12/08/16 12/09/16 08:00 16:00 00:00 Intake Total 439 ml Output Total 226 ml 3000 ml 115 ml Balance 213 ml -3000 ml -115 ml Result Diagram: 12/08/16 0412 12/08/16 0412 Other Results Laboratory Tests Test 12/08/16 05:27 Blood Gas Puncture Site ART LINE Blood Gas Patient Temperature 98.6 Blood Gas HCO3 19 mmol/L (22-26) Blood Gas Base Excess -5.3 mmol/L (-2-2) Blood Gas Oxygen Saturation 95 % (90-100) Arterial Blood pH 7.40 (7.380-7.420) Arterial Blood Partial Pressure CO2 31 mmHg (38-42) Arterial Blood Partial Pressure O2 110 mmHg (61-120) Arterial Blood Oxygen Content 11.7 Vol % (12.0-20.0) Arterial Blood Carboxyhemoglobin 1.4 % (0-4) Arterial Blood Methemoglobin 1.3 % (0-2) Blood Gas Hemoglobin 8.6 G/DL (12.0-16.0) Oxygen Delivery Device VENTILATOR Blood Gas Ventilator Setting PRVC/AC Blood Gas Inspired Oxygen 35 % Imaging Last Impressions Chest X-Ray 12/05/16 0600 Signed Impressions: Service Date/Time: Monday, December 05, 2016 04:32 - CONCLUSION: 1. Cardiomegaly and findings of congestive heart failure. There has been no significant change when compared to the prior exam. Royal Messer MD Abdomen/Pelvis CT 12/04/16 0600 Signed Impressions: Service Date/Time: Sunday, December 04, 2016 09:35 - CONCLUSION: 1. Interval placement of a cholecystostomy tube. 2. Bibasilar consolidation likely related to atelectasis. This is unchanged. 3. Tip of the NG tube in the hiatal hernia. 4. Small volume ascites. 5. No acute abnormality observed. Nain Sharma Jr., MD Percutaneous Cholangiogram 12/03/16 0000 Signed Impressions: Service Date/Time: Saturday, December 03, 2016 14:31 - CONCLUSION: Uncomplicated percutaneous cholecystostomy as above. Nani Sharma Jr., MD Liver Ultrasound 12/02/16 0000 Signed Impressions: Service Date/Time: Friday, December 02, 2016 19:12 - CONCLUSION: 1. Cholelithiasis with wall thickening and trace pericholecystic fluid. 2. No evidence of biliary duct distention. 3. No other significant abnormality. Jak Hughes MD Last 24 hours Impressions Chest X-Ray 12/02/16 2305 Signed Impressions: Service Date/Time: Friday, December 02, 2016 23:12 - CONCLUSION: 1. Satisfactory position of endotracheal tube as above. 2. Uncomplicated line placement. No evidence of pneumothorax. Royal Messer MD Chest X-Ray 12/02/16 1217 Signed Impressions: Service Date/Time: Friday, December 02, 2016 12:56 - CONCLUSION: Cardiomegaly. Left lower lobe atelectasis versus pneumonia. Royal Messer MD Objective Remarks Infusions: Versed 2 mg/hour Fentanyl 50 mcgs BP 121/59 Pulse 83 O2 saturation 95% on FiO2 of 35% GENERAL: Critically ill appearing appropriately stated age female intubated and mild sedation, and tenuous eye opening SKIN: Warm and dry. HEAD: Atraumatic. Normocephalic. EYES: Pupils equal and round. Mild scleral icterus, decreasing. No injection or drainage. Extraocular movements intact ENT: No nasal bleeding or discharge. Mucous membranes pink and moist. Orotracheally intubated NECK: Trachea midline. No JVD. CARDIOVASCULAR: Normal rate, regular rhythm. Telemetry sinus rhythm RESPIRATORY: No accessory muscle use. Clear to auscultation. Breath sounds equal bilaterally. GASTROINTESTINAL: Abdomen soft,nondistended, tender to palpation. No guarding. MUSCULOSKELETAL: Extremities without clubbing, cyanosis, or edema. No obvious deformities. Right groin Vas-Cath site soft no erythema/drainage NEUROLOGICAL: RASS -2. No gross focal/sensory deficits. Not following commands today Procedures 12/02-abdominal ultrasound 12/03- percutaneous cholecystostomy tube placement 12/05-patient of CRRT, completion 12/07 12/08-initiation of IHD Date of Insertion: Dec 02, 2016 Line: Central Venous Catheter Side: Left Location: Femoral A/P Assessment and Plan ASSESSMENT Abdominal pain Hiatal hernia Diverticulitis Cholelithiasis with cholecystitis Transaminitis Nausea Hyperlipidemia Hypertension History of OH Coronary artery disease-S/P angioplasty 2 History of systolic CHF Acute hypoxemic respiratory failure Probable community-acquired pneumonia Hypokalemia Alcohol use disorder Elevated creatinine Pancytopenia Transaminitis Acute renal failure Multisystem organ failure secondary to septic shock Acute decompensated systolic heart failure Coagulopathy Bandemia Persistent leukocytosis Critical illness polyneuropathy PLAN Plan by systems: Neurologic: Neurochecks per ICU protocol Fentanyl infusion for ventilator synchrony- Monitor for signs of alcohol withdrawal Daily sedation vacation-patient remains GCS 11 T Seizure precautions Tylenol 650 mg every 6 hours when necessary for temp greater than 101 Thiamine , folate and MVI Respiratory: Maintain O2 sat greater than 92% Bronchodilators 36 hours scheduled, every 2 hours PRN 12/02-intubation 7.5 ETT Ventilator bundle 12/05- bicarbonate infusion discontinued 12/05 Chest [id number] right basilar opacity, left lower lobe pneumonia versus atelectasis, small left pleural effusion 12/07 begin CPAP trials Cardiovascular: Initial troponin 0.07->0.11->0.49. Possibly secondary to acute Kidney injury, and low-flow cardiac output state 10/17 echo results-EF 50% Patient's being seen regularly by nuclear design engineer in [place] Shanda MD [phone], obtained cardiology records regarding function Echo 10/03/15 per cardiology medical records([place])-normal LV function,EF 56%, mild septal LVH, mild TR, mild PAH Patient's home meds include ASA 81mg, Metoprolol 50 mg ER (recently discontinued secondary to hypotension by nuclear design engineer 3 weeks ago) will not restart secondary to hemodynamic instability, Rosvustatin at this time will not continue secondary to elevated LFT's continue to trend. aspirin 81 mg- held NYHA classification III-per previous records Lasix 20mg/day-on hold secondary to hemodynamic instability Flowtrac monitoring- continued CO ranging 4.4-4.8 12/07 vasopressors discontinued Renal Follow-up urine sodium, urine creatinine - FeNa 1.75 , no eosinophils Nephrology following-Dr. Carlos, patient may need hemodialysis await recommendations Review of medical records obtained from PCP baseline creatinine 1.3,PCP notes reveal patient had renal insufficiency CKD Stage 3 in the past Sodium bicarbonate infusion discontinued 12/05 12/05 initiation of CRRT 12/08 initiation of IHD-schedule per nephrology -- Strict I/Os FEN/GI: Replete electrolytes Monitor BMP 12/05 F/U GI recommendations -insert Dobbhoff tube, or NG tube and begin trickle feeds 12/02 CT abdomen pelvis-diverticulosis without diverticulitis, large hiatal hernia, cholelithiasis, no acute process ultrasound abdomen-no biliary duct dilatation, cholelithiasis with cholecystitis trace pericholecystic fluid 12/03- percutaneous cholecystostomy drain placement percutaneous cholecystostomy draining (Bile- Enterococcus faecalis)- minimal drainage today 12/[address] Pathak bile fluid-Enterococcus faecalis-no surgical intervention at this time, plan for tentative semi-elective versus elective cholecystectomy in the future 12/08 general surgery reconsulted to review surgical options-vasopressor pressor support is not required, patient remains with elevated leukocytosis, will follow up recommendations Hold statin in the setting of elevated LFTs 12/[address] abd /pelvis - 12/04 BNP > 5000 -in the setting of acute renal failure, septic shock, and decompensated heart failure 12/07 CRRT discontinued patient will begin IHD 2 times a week Heme/ID: ID consulted-Dr. Ramos, and a box per ID recommendation 12/03 blood cultures-Enterobacter, Klebsiella pneumoniae, Escherichia coli 12/03 Legionella, influenza , pneumococcal antigen- negative 12/03 sputum culture-E coli 12/03: Bile fluid-Enterococcus faecalis Hematology oncology following INR 1.8-no active signs of bleeding 12/05 HIT panel-negative 12/06 2 units of FFP per hematology recommendations 12/07 transfuse 2 units of platelets 12/08-fibrinogen level Downward trend 392->213-> 165 today- transfuse 1 unit of cryoprecipitate Endocrine: Glucose monitoring per ICU protocol -- SSI MSK: PT evaluation and treat Functional maintenance daily Prophylaxis: GI Prophylaxis Famotidine DVT Prophylaxis -- SCDs Heparin 5000 SQ BID (on Hold) in the setting of thrombocytopenia Lines: PIV's x 2. Central line left IJ, Art line left femoral, right femoral Vas-Cath Dispo: Discussed with Dr. Ramos (ID) THREAD WEAVER at bedside, and patient's family. Will reconsult general surgery regarding surgical options. Patient longer requires vasopressors support however WBC count continues to be elevated, now in the presence of hypofibrinogenemia. This patient remains critically ill with one or more organ systems which are or may become a threat to life. I have spent in excess of 50 minutes discontinuously in the care and management of this patient. This time is exclusive of procedures, and includes, but is not limited to, evaluation of the patient, review of the medical record, discussions with family, consultants, nursing staff, or respiratory therapy, and documentation in the medical record. 12/04: Discussed case with , updated him on patient's medical status. All questions answered. Living will obtained. Palliative care consult initiated for clarification. 12/05: Patient alternate CODE STATUS no shocks no drugs no CPR, living will placed in chart. Aggressive measures continue, possible hemodialysis. Physician Quiana Haywood MD Dec 08, 2016 20:12
[2016-12-09] VITALS (19 sets, daily range): BP systolic 139–174; BP diastolic 78–99; PULSE 55–92; RESP 18; TEMP 97.5–98.6; O2SAT 98–100
[2016-12-09] MEDS: HYDROCORTISONE SOD SUCCINATE 100 MG VIAL IV PUSH SCH ×3 (00:53→17:19)
[2016-12-09] MEDS: fentaNYL DRIP 250 ML IV PRN ×3 (02:17→22:42)
[2016-12-09] MEDS: CHLORHEXIDINE GLUCONATE 2 % 1 PACK (2 CLOTHS) TOP SCH (04:00)
--- NOTE | 2016-12-09 05:50 | RADRPT ---
EXAM DATE/TIME: 12/09/2016 04:06 [facility] COMPARISON: CHEST SINGLE AP, December 07, 2016, 4:20. INDICATIONS : Shortness of breath, possible edema. MEDICAL HISTORY : Cardiovascular disease. Hypertension Hypercholesterolemia. [place] SURGICAL HISTORY : Cholecystectomy. Fusion, cervical. ENCOUNTER: Subsequent ACUITY: 1 week PAIN SCORE: Non-responsive. LOCATION: Bilateral chest FINDINGS: A single AP semierect view of the chest was obtained and again demonstrates the endotracheal tube in place with the tip 4 cm above the real. A nasogastric tube has been placed and is seen coursing thr ough the esophagus into the stomach. No jugular central venous line needs in place. Abnormal opacity remains the lung bases with blunting of the costophrenic angles and partial obscuration of the hemidi aphragms. Heart size appears mildly prominent. Patient is noted to be status post lower cervical fusi on. CONCLUSION: 1. Interval placement of nasogastric tube. 2. Bibasal opacities remain. Josef Luther MD on December 09, 2016 at 5:48 Board Certified Radiologist. This report was verified electronically.
--- NOTE | 2016-12-09 05:50 | RADRPT ---
EXAM DATE/TIME: 12/09/2016 04:06 [facility] COMPARISON: CHEST SINGLE AP, December 07, 2016, 4:20. INDICATIONS : Shortness of breath, possible edema. MEDICAL HISTORY : Cardiovascular disease. Hypertension Hypercholesterolemia. [place] SURGICAL HISTORY : Cholecystectomy. Fusion, cervical. ENCOUNTER: Subsequent ACUITY: 1 week PAIN SCORE: Non-responsive. LOCATION: Bilateral chest FINDINGS: A single AP semierect view of the chest was obtained and again demonstrates the endotracheal tube in place with the tip 4 cm above the real. A nasogastric tube has been placed and is seen coursing thr ough the esophagus into the stomach. No jugular central venous line needs in place. Abnormal opacity remains the lung bases with blunting of the costophrenic angles and partial obscuration of the hemidi aphragms. Heart size appears mildly prominent. Patient is noted to be status post lower cervical fusi on. CONCLUSION: 1. Interval placement of nasogastric tube. 2. Bibasal opacities remain. Josef Luther MD on December 09, 2016 at 5:48 Board Certified Radiologist. This report was verified electronically.
--- NOTE | 2016-12-09 05:50 | RADRPT ---
EXAM DATE/TIME: 12/09/2016 04:06 [facility] COMPARISON: CHEST SINGLE AP, December 07, 2016, 4:20. INDICATIONS : Shortness of breath, possible edema. MEDICAL HISTORY : Cardiovascular disease. Hypertension Hypercholesterolemia. [place] SURGICAL HISTORY : Cholecystectomy. Fusion, cervical. ENCOUNTER: Subsequent ACUITY: 1 week PAIN SCORE: Non-responsive. LOCATION: Bilateral chest FINDINGS: A single AP semierect view of the chest was obtained and again demonstrates the endotracheal tube in place with the tip 4 cm above the real. A nasogastric tube has been placed and is seen coursing thr ough the esophagus into the stomach. No jugular central venous line needs in place. Abnormal opacity remains the lung bases with blunting of the costophrenic angles and partial obscuration of the hemidi aphragms. Heart size appears mildly prominent. Patient is noted to be status post lower cervical fusi on. CONCLUSION: 1. Interval placement of nasogastric tube. 2. Bibasal opacities remain. Josef Luther MD on December 09, 2016 at 5:48 Board Certified Radiologist. This report was verified electronically.
[2016-12-09 06:04] LABS: AUTOMATED NEUTROPHIL # 24.5 TH/MM3 (1.8-7.7); BASOPHIL % 0.1 % (0.0-2.0); HEMATOCRIT 23.3 % (35.0-46.0); HEMOGLOBIN 7.9 GM/DL (11.6-15.3); LYMPH % 6.3 % (9.0-44.0); LYMPHOCYTE # 1.8 TH/MM3 (1.0-4.8); MEAN CELL VOLUME 89.3 FL (80.0-100.0); MEAN CORPUSCULAR HEMOGLOBIN 30.2 PG (27.0-34.0); MEAN CORPUSCULAR HGB CONC 33.8 % (32.0-36.0); MEAN PLATELET VOLUME 9.7 FL (7.0-11.0); MONO % 5.1 % (0.0-8.0); MONOCYTE # 1.4 TH/MM3 (0-0.9); NEUT % 88.5 % (16.0-70.0); PLATELET COUNT 52 TH/MM3 (150-450); RED BLOOD COUNT 2.61 MIL/MM3 (4.00-5.30); RED CELL DISTRIBUTION WIDTH 15.3 % (11.6-17.2); WHITE BLOOD COUNT 27.7 TH/MM3 (4.0-11.0)
[2016-12-09 06:30] LABS: ALBUMIN 2.3 GM/DL (3.4-5.0); ALKALINE PHOSPHATASE 247 U/L (45-117); ALT (GPT) 95 U/L (10-53); AST (GOT) 91 U/L (15-37); BICARBONATE 22.8 MEQ/L (21.0-32.0); BLOOD UREA NITROGEN 53 MG/DL (7-18); CALCIUM 7.9 MG/DL (8.5-10.1); CHLORIDE 104 MEQ/L (98-107); CREATININE 3.13 MG/DL (0.50-1.00); GLOMERULAR FILTRATION RATE 15 ML/MIN (>89); GLUCOSE,RANDOM 182 MG/DL (74-106); MAGNESIUM 1.9 MG/DL (1.5-2.5); PHOSPHORUS 4.4 MG/DL (2.5-4.9); SODIUM (NA) 139 MEQ/L (136-145); TOTAL BILIRUBIN ADULT 3.8 MG/DL (0.2-1.0); TOTAL PROTEIN 5.7 GM/DL (6.4-8.2)
[2016-12-09 06:31] LABS: INTERNATIONAL NORMALIZED RATIO 1.3 RATIO
[2016-12-09 06:39] LABS: BANDS 2 % (0-6); KERATOCYTES 1+ (NORMAL); LYMPHOCYTES 3 % (9-44); MONOCYTES 7 % (0-8); MYELOCYTES 1 % (0-0); NEUTROPHIL # MANUAL DIFF 24.9 TH/MM3 (1.8-7.7); POLYS (SEG NEUTROPHILS) 87 % (16-70)
[2016-12-09] MEDS: CHLORHEXIDINE 0.12% (ORAL KIT) 15 ML CUP MT SCH ×2 (08:00→22:02)
[2016-12-09] MEDS: INSULIN NovoLIN REGULAR SUPPLEMENTAL SCALE SQ SCH ×4 (08:00→21:00)
[2016-12-09] MEDS: SODIUM CHLORIDE 0.9% FLUSH 10 ML FLUSH IV FLUSH SCH ×3 (08:37→22:02)
[2016-12-09] MEDS: FAMOTIDINE 20 MG/2 ML VIAL IV PUSH SCH (08:38)
[2016-12-09] MEDS: DOCUSATE SODIUM 50 MG/SENNA 8.6 MG TAB PO SCH ×2 (08:38→21:00)
--- NOTE | 2016-12-09 09:05 | HHI.IDPN ---
Subjective Subjective Remarks somewhat better afebrile of pressors On vent more arousable biliary drain was re-evaluated by BELLE mcnulty' levaquine Allergies: Coded Allergies: No Known Allergies (Unverified , 12/02/16) Objective . Vital Signs Date Time Temp Pulse Resp B/P (MAP) Pulse Ox O2 Delivery O2 Flow Rate FiO2 12/09/16 07:23 100 35 12/09/16 06:00 70 12/09/16 04:00 35 12/09/16 04:00 98.1 64 18 146/78 (100) 100 164/84 (110) 12/09/16 04:00 64 12/09/16 04:00 64 146/78 (100) 164/84 (110) 12/09/16 03:30 100 35 12/09/16 02:00 66 12/09/16 01:00 100 70 12/09/16 00:00 64 12/09/16 00:00 35 12/09/16 00:00 98.0 64 18 139/81 (100) 100 158/84 (108) 12/09/16 00:00 64 139/81 (100) 158/84 (108) 12/08/16 22:08 98.4 78 18 168/93 100 12/08/16 22:00 75 12/08/16 21:51 98.5 70 18 167/89 100 12/08/16 21:34 100 35 12/08/16 20:00 86 12/08/16 20:00 86 139/80 (99) 158/85 (109) 12/08/16 20:00 98.5 86 18 139/80 (99) 97 158/85 (109) 12/08/16 20:00 35 12/08/16 18:00 114 12/08/16 17:50 97 35 12/08/16 16:04 97 35 12/08/16 16:00 98.8 76 18 140/82 (101) 97 147/71 (96) 12/08/16 16:00 73 12/08/16 16:00 35 12/08/16 16:00 76 118/74 (89) 147/71 (96) 12/08/16 14:00 77 12/08/16 12:49 96 35 12/08/16 12:00 98.8 76 18 118/74 (89) 97 123/65 (84) 12/08/16 12:00 76 12/08/16 12:00 35 12/08/16 12:00 76 118/74 (89) 123/65 (84) 12/08/16 10:00 75 12/08/16 09:57 100 35 . Laboratory Tests Test 12/08/16 04:12 12/09/16 05:02 White Blood Count 24.7 TH/MM3 27.7 TH/MM3 Red Blood Count 2.76 MIL/MM3 2.61 MIL/MM3 Hemoglobin 8.4 GM/DL 7.9 GM/DL Hematocrit 24.8 % 23.3 % Mean Corpuscular Volume 89.9 FL 89.3 FL Mean Corpuscular Hemoglobin 30.3 PG 30.2 PG Mean Corpuscular Hemoglobin Concent 33.7 % 33.8 % Red Cell Distribution Width 15.8 % 15.3 % Platelet Count 69 TH/MM3 52 TH/MM3 Mean Platelet Volume 9.9 FL 9.7 FL Neutrophils (%) (Auto) 89.4 % 88.5 % Lymphocytes (%) (Auto) 5.5 % 6.3 % Monocytes (%) (Auto) 5.0 % 5.1 % Eosinophils (%) (Auto) 0.0 % 0.0 % Basophils (%) (Auto) 0.1 % 0.1 % Neutrophils # (Auto) 22.1 TH/MM3 24.5 TH/MM3 Lymphocytes # (Auto) 1.4 TH/MM3 1.8 TH/MM3 Monocytes # (Auto) 1.2 TH/MM3 1.4 TH/MM3 Eosinophils # (Auto) 0.0 TH/MM3 0.0 TH/MM3 Basophils # (Auto) 0.0 TH/MM3 0.0 TH/MM3 CBC Comment AUTO DIFF AUTO DIFF Differential Total Cells Counted 100 100 Neutrophils % (Manual) 89 % 87 % Band Neutrophils % 1 % 2 % Lymphocytes % 7 % 3 % Monocytes % 3 % 7 % Neutrophils # (Manual) 22.2 TH/MM3 24.9 TH/MM3 Differential Comment FINAL DIFF MANUAL FINAL DIFF MANUAL Platelet Estimate LOW LOW Platelet Morphology Comment ENLARGED NORMAL Red Cell Morphology Comment NORMAL Myelocytes 1 % Keratocytes 1+ Laboratory Tests Test 12/08/16 00:45 12/08/16 04:12 12/09/16 05:02 Ammonia LESS THAN 10 MCMOL/L LESS THAN 10 MCMOL/L Blood Urea Nitrogen 51 MG/DL 53 MG/DL Creatinine 3.42 MG/DL 3.13 MG/DL Random Glucose 154 MG/DL 182 MG/DL Total Protein 5.3 GM/DL 5.7 GM/DL Albumin 1.9 GM/DL 2.3 GM/DL Calcium Level 6.6 MG/DL 7.9 MG/DL Phosphorus Level 4.6 MG/DL 4.4 MG/DL Magnesium Level 1.7 MG/DL 1.9 MG/DL Alkaline Phosphatase 224 U/L 247 U/L Aspartate Amino Transf (AST/SGOT) 191 U/L 91 U/L Alanine Aminotransferase (ALT/SGPT) 143 U/L 95 U/L Total Bilirubin 3.8 MG/DL 3.8 MG/DL Sodium Level 140 MEQ/L 139 MEQ/L Potassium Level 4.0 MEQ/L 3.7 MEQ/L Chloride Level 107 MEQ/L 104 MEQ/L Carbon Dioxide Level 20.6 MEQ/L 22.8 MEQ/L Anion Gap 12 MEQ/L 12 MEQ/L Estimat Glomerular Filtration Rate 13 ML/MIN 15 ML/MIN Protein Corrected Calcium 7.5 MG/DL Imaging Last Impressions Chest X-Ray 12/09/16 0600 Signed Impressions: Service Date/Time: Friday, December 09, 2016 04:06 - CONCLUSION: 1. Interval placement of nasogastric tube. 2. Bibasal opacities remain. Josef Luther MD Abdomen CT 12/08/16 0000 Signed Impressions: Service Date/Time: Thursday, December 08, 2016 17:52 - CONCLUSION: 1. Cholecystostomy tube in good position. Nain Sharma Jr., MD Abdomen X-Ray 12/06/16 0000 Signed Impressions: Service Date/Time: November 16:24 - CONCLUSION: Feeding tube distal tip overlies the right lower lung zone and is possibly within the airway. Therefore, suggest repositioning. Fermin Acosta MD Abdomen/Pelvis CT 12/04/16 0600 Signed Impressions: Service Date/Time: Sunday, December 04, 2016 09:35 - CONCLUSION: 1. Interval placement of a cholecystostomy tube. 2. Bibasilar consolidation likely related to atelectasis. This is unchanged. 3. Tip of the NG tube in the hiatal hernia. 4. Small volume ascites. 5. No acute abnormality observed. Nain Sharma Jr., MD Percutaneous Cholangiogram 12/03/16 0000 Signed Impressions: Service Date/Time: Saturday, December 03, 2016 14:31 - CONCLUSION: Uncomplicated percutaneous cholecystostomy as above. Nain Sharma Jr., MD Liver Ultrasound 12/02/16 0000 Signed Impressions: Service Date/Time: Friday, December 02, 2016 19:12 - CONCLUSION: 1. Cholelithiasis with wall thickening and trace pericholecystic fluid. 2. No evidence of biliary duct distention. 3. No other significant abnormality. Jak Hughes MD Physical Exam CONSTITUTIONAL/GENERAL: This is an adequately nourished patient, in no apparent distress. TUBES/LINES/DRAINS: biliary drain in place with small amount of serosang fluid 12 cc of bile in prev shift SKIN: less jaundice, rashes, or lesions. . Skin temperature appropriate. Not diaphoretic. HEAD: Atraumatic. Normocephalic. EYES: Pupils equal and round and reactive. very mild scleral icterus. No injection or drainage. Fundi not examined. ENT: Hearing not assessed. Nose without bleeding or purulent drainage. Oraly intubated NECK: Trachea midline. Supple, nontender. CARDIOVASCULAR: Regular rate and rhythm without murmurs, gallops, or rubs. No JVD. Peripheral pulses symmetric. Perfusion diminished on b/l toes, on fingersd refill is brisk RESPIRATORY/CHEST: Symmetric, unlabored respirations. Clear to auscultation. Breath sounds equal bilaterally. No wheezes, rales, or rhonchi. GASTROINTESTINAL: Abdomen soft, no reaction to papation + distended. No hepato- splenomegaly, or palpable masses. Drain in place No guarding. Bowel sounds very hypoactive GENITOURINARY: Without palpable bladder distension. Peterson catheter in place with small amount of cloudy urine MUSCULOSKELETAL: Extremities without clubbing, cyanosis, + 2 edema. No joint tenderness or effusion noted. No calf tenderness. No mottling or clubbing. NEUROLOGICAL: Sedated, opens eyes to touch PSYCHIATRIC: unabe to assess Assessment & Plan Remarks Billiary sepsis ? uncontrolled as of today WBC trending up, pts and fibrinogen down Multi-organ failure: acute VDRF ARF, on HD Hypotension, resolved, currently off pressors Gram negative sepsis - biliary Acute calculous cholecystitis sp cholecystostomy tube placement - growing enterococccus chirinos S and >=3 MIXED ENTERIC GRAM NEGATIVE RODS in the bile clx - not much drainage ? E.coli UTI vs colonisatrion ? PNA vs ARDS - growing E.coli in sputum R to zosyn Critical, seems more stable today Leukocytosis, leukemoid reaction - WBC even worse today Fibrinogen trending up today, plts dwn - in DIC? cont zosyn cont levaqine for zosyn-R E.coli in the sputum reconsult gen surgery to reconsider surgical options robyn Garcia RN dw GI and gen sx yJina Sutton MD Dec 09, 2016 09:05
--- NOTE | 2016-12-09 09:15 | HHI.GIFU ---
Subjective Remarks Resting in bed, in no apparent distress. Sedated on vent. (Natalia Chicas) Objective Vitals I&O Vital Signs Date Time Temp Pulse Resp B/P (MAP) Pulse Ox O2 Delivery O2 Flow Rate FiO2 12/09/16 07:23 100 35 12/09/16 06:00 70 12/09/16 04:00 35 12/09/16 04:00 98.1 64 18 146/78 (100) 100 164/84 (110) 12/09/16 04:00 64 12/09/16 04:00 64 146/78 (100) 164/84 (110) 12/09/16 03:30 100 35 12/09/16 02:00 66 12/09/16 01:00 100 70 12/09/16 00:00 64 12/09/16 00:00 35 12/09/16 00:00 98.0 64 18 139/81 (100) 100 158/84 (108) 12/09/16 00:00 64 139/81 (100) 158/84 (108) 12/08/16 22:08 98.4 78 18 168/93 100 12/08/16 22:00 75 12/08/16 21:51 98.5 70 18 167/89 100 12/08/16 21:34 100 35 12/08/16 20:00 86 12/08/16 20:00 86 139/80 (99) 158/85 (109) 12/08/16 20:00 98.5 86 18 139/80 (99) 97 158/85 (109) 12/08/16 20:00 35 12/08/16 18:00 114 12/08/16 17:50 97 35 12/08/16 16:04 97 35 12/08/16 16:00 98.8 76 18 140/82 (101) 97 147/71 (96) 12/08/16 16:00 73 12/08/16 16:00 35 12/08/16 16:00 76 118/74 (89) 147/71 (96) 12/08/16 14:00 77 12/08/16 12:49 96 35 12/08/16 12:00 98.8 76 18 118/74 (89) 97 123/65 (84) 12/08/16 12:00 76 12/08/16 12:00 35 12/08/16 12:00 76 118/74 (89) 123/65 (84) 12/08/16 10:00 75 12/08/16 09:57 100 35 I/O 12/08/16 12/08/16 12/08/16 12/09/16 12/09/16 12/09/16 07:00 15:00 23:00 07:00 15:00 23:00 Intake Total 152 ml 287 ml 868.2 ml 502 ml Output Total 226 ml 3000 ml 115 ml 112 ml Balance -74 ml -2713 ml 753.2 ml 390 ml Intake IV Total 50 ml 660.2 ml 300 ml Tube Feeding 102 ml 142 ml Platelets 287 ml Cryoprecipitate 208 ml Tube Irrigant 60 ml Output Urine Total 200 ml 98 ml 100 ml Stool Total 2 ml 2 ml Drainage Total 24 ml 17 ml 10 ml Hemodialysis 3000 ml Laboratory Laboratory Tests Test 12/08/16 11:42 12/09/16 05:02 12/09/16 06:15 Prothrombin Time 14.3 14.0 Prothromb Time International Ratio 1.3 1.3 Activated Partial Thromboplast Time 31.2 29.4 Fibrinogen 165 203 White Blood Count 27.7 Red Blood Count 2.61 Hemoglobin 7.9 Hematocrit 23.3 Mean Corpuscular Volume 89.3 Mean Corpuscular Hemoglobin 30.2 Mean Corpuscular Hemoglobin Concent 33.8 Red Cell Distribution Width 15.3 Platelet Count 52 Mean Platelet Volume 9.7 Neutrophils (%) (Auto) 88.5 Lymphocytes (%) (Auto) 6.3 Monocytes (%) (Auto) 5.1 Eosinophils (%) (Auto) 0.0 Basophils (%) (Auto) 0.1 Neutrophils # (Auto) 24.5 Lymphocytes # (Auto) 1.8 Monocytes # (Auto) 1.4 Eosinophils # (Auto) 0.0 Basophils # (Auto) 0.0 CBC Comment AUTO DIFF Differential Total Cells Counted 100 Neutrophils % (Manual) 87 Band Neutrophils % 2 Lymphocytes % 3 Monocytes % 7 Neutrophils # (Manual) 24.9 Myelocytes 1 Differential Comment FINAL DIFF MANUAL Platelet Estimate LOW Platelet Morphology Comment NORMAL Keratocytes 1+ Blood Urea Nitrogen 53 Creatinine 3.13 Random Glucose 182 Total Protein 5.7 Albumin 2.3 Calcium Level 7.9 Phosphorus Level 4.4 Magnesium Level 1.9 Alkaline Phosphatase 247 Aspartate Amino Transf (AST/SGOT) 91 Alanine Aminotransferase (ALT/SGPT) 95 Total Bilirubin 3.8 Sodium Level 139 Potassium Level 3.7 Chloride Level 104 Carbon Dioxide Level 22.8 Anion Gap 12 Estimat Glomerular Filtration Rate 15 Ammonia LESS THAN 10 Blood Gas Puncture Site ART LINE Blood Gas Patient Temperature 98.6 Blood Gas HCO3 22 Blood Gas Base Excess -1.1 Blood Gas Oxygen Saturation 95 Arterial Blood pH 7.48 Arterial Blood Partial Pressure CO2 30 Arterial Blood Partial Pressure O2 101 Arterial Blood Oxygen Content 13.6 Arterial Blood Carboxyhemoglobin 1.6 Arterial Blood Methemoglobin 1.2 Blood Gas Hemoglobin 10.1 Oxygen Delivery Device VENTILATOR Blood Gas Ventilator Setting PRVC Blood Gas Inspired Oxygen 35 Date/Time Source Procedure Growth Status 12/02/16 12:40 Blood Peripheral Aerobic Blood Culture - Final Klebsiella Pneumoniae Escherichia Coli Enterobacter Species Complete 12/02/16 12:40 Anaerobic Blood Culture - Final Klebsiella Pneumoniae Escherichia Coli Enterobacter Species Complete 12/03/16 14:55 Fluid Bile Fluid Gram Stain - Final Complete 12/03/16 14:55 Body Fluid Culture - Final Enterococcus Faecalis Complete 12/03/16 10:15 Sputum Endotracheal Gram Stain - Final Complete 12/03/16 10:15 Sputum Culture - Final Escherichia Coli Complete 12/03/16 09:40 Urine Catheterized Urine Streptococcus pneumoniae Antigen (M - Final PRESUMPTIVE NEGATIVE FOR STREPTOCOCCU... Complete Imaging Last Impressions Chest X-Ray 12/09/16 0600 Signed Impressions: Service Date/Time: Friday, December 09, 2016 04:06 - CONCLUSION: 1. Interval placement of nasogastric tube. 2. Bibasal opacities remain. Josef Luther MD Abdomen CT 12/08/16 0000 Signed Impressions: Service Date/Time: Thursday, December 08, 2016 17:52 - CONCLUSION: 1. Cholecystostomy tube in good position. Nain Sharma Jr., MD Abdomen X-Ray 12/06/16 0000 Signed Impressions: Service Date/Time: November 16:24 - CONCLUSION: Feeding tube distal tip overlies the right lower lung zone and is possibly within the airway. Therefore, suggest repositioning. Fermin Acosta MD Abdomen/Pelvis CT 12/04/16 0600 Signed Impressions: Service Date/Time: Sunday, December 04, 2016 09:35 - CONCLUSION: 1. Interval placement of a cholecystostomy tube. 2. Bibasilar consolidation likely related to atelectasis. This is unchanged. 3. Tip of the NG tube in the hiatal hernia. 4. Small volume ascites. 5. No acute abnormality observed. Nain Sharma Jr., MD Percutaneous Cholangiogram 12/03/16 0000 Signed Impressions: Service Date/Time: Saturday, December 03, 2016 14:31 - CONCLUSION: Uncomplicated percutaneous cholecystostomy as above. Nain Sharma Jr., MD Liver Ultrasound 12/02/16 0000 Signed Impressions: Service Date/Time: Friday, December 02, 2016 19:12 - CONCLUSION: 1. Cholelithiasis with wall thickening and trace pericholecystic fluid. 2. No evidence of biliary duct distention. 3. No other significant abnormality. Jak Hughes MD Physical Exam GEN: Sedated on vent. HEENT: Normocephalic; atraumatic; no jaundice. CHEST: Resp even/unlabored, OETT to vent. Diminished. CARDIAC: RRR ABDOMEN: Soft, mildly distended, cholecystomy tube patent draining, bowel sounds are hypoactive EXTREMITIES: Generalized edema. SKIN: Normal; no rash; no jaundice. MEASUREMENT COORDINATOR: Sedated on vent. (Natalia Chicas) Assessment and Plan Plan ASSESSMENT: - Cholecystitis. CT scan abdomen and pelvis without iv contrast (12/02/16)---> No evidence of acute abdominal or pelvic process. No masses are identified. Cholelithiasis. Left lower lobe atelectasis versus pneumonia, a large hiatal hernia is present, diverticulosis without evidence of diverticulitis. Liver US (12/02/16)---> Cholelithiasis with wall thickening and trace pericholecystic fluid, no evidence of biliary duct distention, no other significant abnormality. Bacteremia with multiple organisms. GS following, s/p cholecystomy tube 12/03. Zosyn, Levaquin, T. BIli 3.8, AST 91, ALT 95, Alk Phosph 247. - FEN/Malnutrition. Nurse was unable to place OGT (would not advance). Attempt at NGT/Dobbhoff was unsuccessful. S/P EGD with OGT placement (12/07/16)----> Hiatal hernia. Successful OG tube placement. TF going at 10cc/hr. - Epistaxis. (after attempted Dobbhoff placement) resolved. - Thrombocytopenia, Coagulopathy. S/P 2 units of FFP. HIT negative - Elevated LFTs. No evidence of biliary duct obstruction. No evidence of pancreatitis or dilated ducts on imaging. Unclear if this is all cholecystis, or passed stone, or possible ETOH and cholecystitis. S/P Cholecystomy tube. Hepatitis profile negative, HERBER negative, AMA <20.0, ASMA neg, Iron saturation 2.7%, Ferritin 306, ALpha 1 antitrypsin 209, Ceruloplasmin 32, AFP. LFTs improving T. BIli 3.8, AST 91, ALT 95, Alk Phosph 247. - Severe sepsis with multisystem failure. BCx from 12/02/16 grew enterobacter species, klebsiella pneumoniae, escherichia coli, and GNR in the anaerobic bottle. Bile cx Group D Enterococcus. Sputum Cx E. Coli. Zosyn, Levaquin. WBC 27.7 - Anemia. HH 7.9/23.3. - Abdominal pain, nausea, decreased appetite. Likely related to cholecystis. Currently sedated. - ARF with severe electrolyte abnormalities. Pt was started on CVVHD, b/p stable on pressors at this time. - Resp. Failure/PNA. CXR LLL atelectasis vs. pna, resolving right basilar atelectasis. Cx E. Coli. vent per [facility] - Chronic back pain r/t scoliosis. Uses medical marijuana via vaping and takes 4 shots of scotch per day to help with her pain control. Last had these 2 weeks ago. - CAD, Hx HTN, Hyperlipidemia per attending. PLAN: - TF via OGT - Abx per ID recommendations - S/P Cholecystomy tube placement by IR (12/03) - Consider MRCP when more stable if worsening of LFTs - Monitor labs - Supportive care - Further recommendations to follow based on results of above Patient seen and examined by Dr. Knight and myself and this note is written on his behalf (Natalia Chicas) Physician Comments Patient seen and examined Agree with above Continue with current supportive care Monitor labs At this point the liver function tests appear to be declining although the bilirubin appears to be steady and usually the bilirubin lags behind when it does improve but having reviewed all the x-rays nothing had shown biliary obstruction in the way of biliary dilatation and as such I was not sure that we need to pursue further biliary imaging at this point not unless we see worsening of symptoms or liver function tests and the most likely explanation for elevated liver function tests is that of sepsis and possibly medications or maybe even multifactorial (Greg Knight MD) Natalia Chicas Dec 09, 2016 09:15 Greg Knight MD Dec 09, 2016 13:37
[2016-12-09] MEDS: LORazepam 2 MG/ML VIAL IV PUSH PRN (10:20)
[2016-12-09] MEDS ORDERED: STERILE WATER FOR INJECTION 10 ML VIAL ONE (10:39)
--- NOTE | 2016-12-09 10:54 | HHI.CCPN ---
Subjective Remarks/Hospital Course This is a 71-year-old female presents to the ED via EMS for evaluation of fever , shortness breath, vomiting, diarrhea, abdominal pain She reports that she's been short of breath for the past 2 weeks, but has progressed in the past 2 days. Patient has been seeing a systems accountant for her shortness of breath, is not on home oxygen. The patient reported she has a history of smoking. She is also complaining of abdominal pain that started 2 days ago with vomiting and diarrhea. Patient has severe tenderness to mild palpation. She has history of AK. She received 500 mL normal saline IV bolus, and Zofran 4 mg IV. Critical care medicine was consulted. Subjective: 12/03: Tmax 100.9. Last evening the patient was noted to have significant respiratory decompensation with requirement for emergent intubation. The patient subsequently became hemodynamically unstable requiring vasopressor support. Patient is lightly sedated, and continues to have abdominal pain, and hypoactive bowel sounds, GI has been consulted. HIDA scan previously scheduled for this morning, after discussion with Dr Goodrich , plan for cholecystostomy tube placement by IR. Ultrasound liver showed no biliary duct distention but notable thickened gallbladder wall. 12/04: Tmax 100.4. Patient continues with severe metabolic acidosis, sodium bicarbonate infusion increased to 150 cc/hour yesterday afternoon. Antibiotics were expanded yesterday with addition of Micafungin and Diflucan. Blood cultures resulted with Enterobacter, Klebsiella pneumoniae and Escherichia coli. ID consulted recommendations appreciated. Patient is status post placement of percutaneous cholecystostomy tube . Patient now icteric, but LFTs are trending down. Records obtained from primary care physician with cardiology reports from earlier in the year, patient with noted pulmonary hypertension and NYHA class III. In-hospital echo pending. Patient continues on 3 pressors to maintain blood pressure. 12/05: Patient has been weaned off of vasopressor continues on to agents Gurinder- Synephrine, norepinephrine at low doses. Patient noted to still be thrombocytopenic platelet count decreased today HIT panel pending. INR remains elevated no active signs of bleeding liver function enzymes remain elevated. No urine output over the last 12 hours nephrology following discussion with for possible hemodialysis, will await nephrology recommendations. Sodium bicarbonate infusion discontinued. Patient remains alert GCS 11 T. 12/06: Afebrile. The patient continues on CRRT initiated last night, tolerating it well patient continues only on phenylephrine infusion to maintain MAP. The patient received 2 units of FFP per hematology/oncology recommendations. 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 12/07: Afebrile. Vasopressors discontinued at 4 AM, CRRT completed, patient will be transitioned to IHD 2 times a week. Patient was noted to be severely thrombocytopenic platelet count 32 ,plan for transfusions of platelets, fibrinogen level decreasing. Bile specimen noted to result Enterococcus faecalis, contacted Dr. Portillo general surgery updated him discussion regarding elective versus semielective laparoscopic cholecystectomy ,informed that no surgical intervention indicated at this time. Cholecystostomy tube continues to drain. 12/08: Afebrile. The patient has been transitioned to IHD 2 times a week. 3 L removal of fluid today. The patient remains hemodynamically stable off of all vasopressors greater than 24 hours at this time. A chin continues to have persistent leukocytosis with elevation in WBC count and downward trend up fibrinogen level . Cholecystostomy tube low output, CT scan abdomen pending. General surgery reconsulted to review surgical options for patient. 12/09 Patient is sedated with Fentanyl and intubated. s/p HD yesterday with removal 3L. NPO for possible OR today. Objective Vital Signs Date Time Temp Pulse Resp B/P (MAP) Pulse Ox O2 Delivery O2 Flow Rate FiO2 12/09/16 10:13 100 35 12/09/16 06:00 70 12/09/16 04:00 98.1 18 146/78 (100) 164/84 (110) Intake and Output 12/09/16 12/09/16 12/10/16 08:00 16:00 00:00 Intake Total 452 ml Output Total 112 ml Balance 340 ml Result Diagram: 12/09/16 0502 12/09/16 0502 Other Results Laboratory Tests Test 12/08/16 11:42 12/09/16 05:02 12/09/16 06:15 Prothrombin Time 14.3 SEC 14.0 SEC Prothromb Time International Ratio 1.3 RATIO 1.3 RATIO Activated Partial Thromboplast Time 31.2 SEC 29.4 SEC Fibrinogen 165 mg/dL 203 mg/dL White Blood Count 27.7 TH/MM3 Red Blood Count 2.61 MIL/MM3 Hemoglobin 7.9 GM/DL Hematocrit 23.3 % Mean Corpuscular Volume 89.3 FL Mean Corpuscular Hemoglobin 30.2 PG Mean Corpuscular Hemoglobin Concent 33.8 % Red Cell Distribution Width 15.3 % Platelet Count 52 TH/MM3 Mean Platelet Volume 9.7 FL Neutrophils (%) (Auto) 88.5 % Lymphocytes (%) (Auto) 6.3 % Monocytes (%) (Auto) 5.1 % Eosinophils (%) (Auto) 0.0 % Basophils (%) (Auto) 0.1 % Neutrophils # (Auto) 24.5 TH/MM3 Lymphocytes # (Auto) 1.8 TH/MM3 Monocytes # (Auto) 1.4 TH/MM3 Eosinophils # (Auto) 0.0 TH/MM3 Basophils # (Auto) 0.0 TH/MM3 CBC Comment AUTO DIFF Differential Total Cells Counted 100 Neutrophils % (Manual) 87 % Band Neutrophils % 2 % Lymphocytes % 3 % Monocytes % 7 % Neutrophils # (Manual) 24.9 TH/MM3 Myelocytes 1 % Differential Comment FINAL DIFF MANUAL Platelet Estimate LOW Platelet Morphology Comment NORMAL Keratocytes 1+ Blood Urea Nitrogen 53 MG/DL Creatinine 3.13 MG/DL Random Glucose 182 MG/DL Total Protein 5.7 GM/DL Albumin 2.3 GM/DL Calcium Level 7.9 MG/DL Phosphorus Level 4.4 MG/DL Magnesium Level 1.9 MG/DL Alkaline Phosphatase 247 U/L Aspartate Amino Transf (AST/SGOT) 91 U/L Alanine Aminotransferase (ALT/SGPT) 95 U/L Total Bilirubin 3.8 MG/DL Sodium Level 139 MEQ/L Potassium Level 3.7 MEQ/L Chloride Level 104 MEQ/L Carbon Dioxide Level 22.8 MEQ/L Anion Gap 12 MEQ/L Estimat Glomerular Filtration Rate 15 ML/MIN Ammonia LESS THAN 10 MCMOL/L Blood Gas Puncture Site ART LINE Blood Gas Patient Temperature 98.6 Blood Gas HCO3 22 mmol/L Blood Gas Base Excess -1.1 mmol/L Blood Gas Oxygen Saturation 95 % Arterial Blood pH 7.48 Arterial Blood Partial Pressure CO2 30 mmHg Arterial Blood Partial Pressure O2 101 mmHg Arterial Blood Oxygen Content 13.6 Vol % Arterial Blood Carboxyhemoglobin 1.6 % Arterial Blood Methemoglobin 1.2 % Blood Gas Hemoglobin 10.1 G/DL Oxygen Delivery Device VENTILATOR Blood Gas Ventilator Setting PRVC Blood Gas Inspired Oxygen 35 % Imaging Last Impressions Chest X-Ray 12/09/16 0600 Signed Impressions: Service Date/Time: Friday, December 09, 2016 04:06 - CONCLUSION: 1. Interval placement of nasogastric tube. 2. Bibasal opacities remain. Josef Luther MD Abdomen CT 12/08/16 0000 Signed Impressions: Service Date/Time: Thursday, December 08, 2016 17:52 - CONCLUSION: 1. Cholecystostomy tube in good position. Nain Sharma Jr., MD Abdomen X-Ray 12/06/16 0000 Signed Impressions: Service Date/Time: November 16:24 - CONCLUSION: Feeding tube distal tip overlies the right lower lung zone and is possibly within the airway. Therefore, suggest repositioning. Fermin Acosta MD Abdomen/Pelvis CT 12/04/16 0600 Signed Impressions: Service Date/Time: Sunday, December 04, 2016 09:35 - CONCLUSION: 1. Interval placement of a cholecystostomy tube. 2. Bibasilar consolidation likely related to atelectasis. This is unchanged. 3. Tip of the NG tube in the hiatal hernia. 4. Small volume ascites. 5. No acute abnormality observed. Nain Sharma Jr., MD Percutaneous Cholangiogram 12/03/16 0000 Signed Impressions: Service Date/Time: Saturday, December 03, 2016 14:31 - CONCLUSION: Uncomplicated percutaneous cholecystostomy as above. Nain Sharma Jr., MD Liver Ultrasound 12/02/16 0000 Signed Impressions: Service Date/Time: Friday, December 02, 2016 19:12 - CONCLUSION: 1. Cholelithiasis with wall thickening and trace pericholecystic fluid. 2. No evidence of biliary duct distention. 3. No other significant abnormality. Jak Hughes MD Objective Remarks Infusions: Versed 2 mg/hour Fentanyl 50 mcgs BP 121/59 Pulse 83 O2 saturation 95% on FiO2 of 35% GENERAL: Critically ill appearing appropriately stated age female intubated and mild sedation, and tenuous eye opening SKIN: Warm and dry. HEAD: Atraumatic. Normocephalic. EYES: Pupils equal and round. Mild scleral icterus, decreasing. No injection or drainage. Extraocular movements intact ENT: No nasal bleeding or discharge. Mucous membranes pink and moist. Orotracheally intubated NECK: Trachea midline. No JVD. CARDIOVASCULAR: Normal rate, regular rhythm. Telemetry sinus rhythm RESPIRATORY: No accessory muscle use. Clear to auscultation. Breath sounds equal bilaterally. GASTROINTESTINAL: Abdomen soft,nondistended, tender to palpation. No guarding. MUSCULOSKELETAL: Extremities without clubbing, cyanosis, or edema. No obvious deformities. Right groin Vas-Cath site soft no erythema/drainage NEUROLOGICAL: RASS -2. No gross focal/sensory deficits. Not following commands today Procedures 12/02-abdominal ultrasound 12/03- percutaneous cholecystostomy tube placement 12/05-patient of CRRT, completion 12/07 12/08-initiation of IHD Date of Insertion: Dec 02, 2016 Line: Central Venous Catheter Side: Left Location: Femoral A/P Assessment and Plan ASSESSMENT Abdominal pain Hiatal hernia Diverticulitis Cholelithiasis with cholecystitis Transaminitis Nausea Hyperlipidemia Hypertension History of [place] Coronary artery disease-S/P angioplasty 2 History of systolic CHF Acute hypoxemic respiratory failure Probable community-acquired pneumonia Hypokalemia Alcohol use disorder Elevated creatinine Pancytopenia Transaminitis Acute renal failure Multisystem organ failure secondary to septic shock Acute decompensated systolic heart failure Coagulopathy Bandemia Persistent leukocytosis Critical illness polyneuropathy PLAN Neurologic: Neurochecks per ICU protocol Fentanyl infusion for ventilator synchrony- Monitor for signs of alcohol withdrawal Daily sedation vacation-patient remains GCS 11 T Seizure precautions s/p folate and MVI. Place on Thiamine 100mg daily Respiratory: Continue with vent support keep sat >92% Bronchodilators 36 hours scheduled, every 2 hours PRN 12/02-intubation 7.5 ETT Ventilator bundle Cardiovascular: Place on Hydralazine 25mg Q8-Monitor HR and BP keep MAP>65mmHg Initial troponin 0.07->0.11->0.49. Possibly secondary to acute Kidney injury, and low-flow cardiac output state 12/04 echo results-EF 50% Patient's being seen regularly by library paraprofessional in [place] Shanda MD Echo 10/03/15 per cardiology medical records([place])-normal LV function,EF 56%, mild septal LVH, mild TR, mild PAH Patient's home meds include ASA 81mg, Metoprolol 50 mg ER (recently discontinued secondary to hypotension by library paraprofessional 3 weeks ago) will not restart secondary to hemodynamic instability, Rosvustatin at this time will not continue secondary to elevated LFT's continue to trend. NYHA classification III-per previous records Renal Monitor renal function, I/O's, avoid nephrotoxins. s/p HD 12/08 with 3L fluid removal. Nephrology following-Dr. Carlos, Review of medical records obtained from PCP baseline creatinine 1.3,PCP notes reveal patient had renal insufficiency CKD Stage 3 in the past Sodium bicarbonate infusion discontinued 12/05 12/05 initiation of CRRT 12/08 initiation of IHD-schedule per nephrology -- Strict I/Os FEN/GI: Keep NPO for now GI and surgery are following. Discussed with Dr. [place]. Might need MRCP/ERCP 12/02 CT abdomen pelvis-diverticulosis without diverticulitis, large hiatal hernia, cholelithiasis, no acute process ultrasound abdomen-no biliary duct dilatation, cholelithiasis with cholecystitis trace pericholecystic fluid 12/03- percutaneous cholecystostomy drain placement percutaneous cholecystostomy draining (Bile- Enterococcus faecalis)- monitor drainage 12/[address] Pathak bile fluid-Enterococcus faecalis-no surgical intervention at this time, plan for tentative semi-elective versus elective cholecystectomy in the future 12/08 general surgery reconsulted to review surgical options-vasopressor pressor support is not required, patient remains with elevated leukocytosis, will follow up recommendations Hold statin in the setting of elevated LFTs 12/[address] abd /pelvis - 12/04 BNP > 5000 -in the setting of acute renal failure, septic shock, and decompensated heart failure 12/07 CRRT discontinued patient will begin IHD 2 times a week Heme/ID: ID consulted-Dr. Ramos, and abx per ID (Zosyn, Levaquin) Check BC x 2sets, sputum cx, UA with cx if indicated 12/03 blood cultures-Enterobacter, Klebsiella pneumoniae, Escherichia coli 12/03 Legionella, influenza , pneumococcal antigen- negative 12/03 sputum culture-E coli 12/03: Bile fluid-Enterococcus faecalis Hematology oncology following INR 1.8-no active signs of bleeding 12/05 HIT panel-negative 12/06 2 units of FFP per hematology recommendations 12/07 transfuse 2 units of platelets 12/08-fibrinogen level Downward trend 392->213-> 165 today- transfuse 1 unit of cryoprecipitate Monitor CBC Endocrine: Glucose monitoring per ICU protocol -- SSI MSK: PT evaluation and treat Functional maintenance daily Prophylaxis: GI Prophylaxis Famotidine DVT Prophylaxis -- SCDs Heparin 5000 SQ BID (on Hold) in the setting of thrombocytopenia Lines: PIV's x 2. Central line left IJ, Art line left femoral, right femoral Vas-Cath Palliative care is following CCT 35 mins Kassandra Goodwin MD Dec 09, 2016 10:54
[2016-12-09] MEDS: PIPERACIL-TAZO 2.25 GM PREMIX 50 ML IV SCH ×4 (11:00→23:24)
--- NOTE | 2016-12-09 11:08 | PD.ONC.PN ---
Subjective Subjective Remarks Afebrile overnight Pt remains intubated. Was just given Ativan and is resting. Objective Data Date Time Temp Pulse Resp B/P (MAP) Pulse Ox O2 Delivery O2 Flow Rate FiO2 12/09/16 10:13 100 35 12/09/16 07:23 100 35 12/09/16 06:00 70 12/09/16 04:00 35 12/09/16 04:00 98.1 64 18 146/78 (100) 100 164/84 (110) 12/09/16 04:00 64 12/09/16 04:00 64 146/78 (100) 164/84 (110) 12/09/16 03:30 100 35 12/09/16 02:00 66 12/09/16 01:00 100 70 12/09/16 00:00 64 12/09/16 00:00 35 12/09/16 00:00 98.0 64 18 139/81 (100) 100 158/84 (108) 12/09/16 00:00 64 139/81 (100) 158/84 (108) 12/08/16 22:08 98.4 78 18 168/93 100 12/08/16 22:00 75 12/08/16 21:51 98.5 70 18 167/89 100 12/08/16 21:34 100 35 12/08/16 20:00 86 12/08/16 20:00 86 139/80 (99) 158/85 (109) 12/08/16 20:00 98.5 86 18 139/80 (99) 97 158/85 (109) 12/08/16 20:00 35 12/08/16 18:00 114 12/08/16 17:50 97 35 12/08/16 16:04 97 35 12/08/16 16:00 98.8 76 18 140/82 (101) 97 147/71 (96) 12/08/16 16:00 73 12/08/16 16:00 35 12/08/16 16:00 76 118/74 (89) 147/71 (96) 12/08/16 14:00 77 12/08/16 12:49 96 35 12/08/16 12:00 98.8 76 18 118/74 (89) 97 123/65 (84) 12/08/16 12:00 76 12/08/16 12:00 35 12/08/16 12:00 76 118/74 (89) 123/65 (84) 12/09/16 12/09/16 12/09/16 07:00 15:00 23:00 Intake Total 502 ml Output Total 112 ml Balance 390 ml Result Diagram: 12/09/16 0502 12/09/16 0502 Laboratory Results Laboratory Tests Test 12/08/16 11:42 12/09/16 05:02 12/09/16 06:15 Prothrombin Time 14.3 SEC 14.0 SEC Prothromb Time International Ratio 1.3 RATIO 1.3 RATIO Activated Partial Thromboplast Time 31.2 SEC 29.4 SEC Fibrinogen 165 mg/dL 203 mg/dL White Blood Count 27.7 TH/MM3 Red Blood Count 2.61 MIL/MM3 Hemoglobin 7.9 GM/DL Hematocrit 23.3 % Mean Corpuscular Volume 89.3 FL Mean Corpuscular Hemoglobin 30.2 PG Mean Corpuscular Hemoglobin Concent 33.8 % Red Cell Distribution Width 15.3 % Platelet Count 52 TH/MM3 Mean Platelet Volume 9.7 FL Neutrophils (%) (Auto) 88.5 % Lymphocytes (%) (Auto) 6.3 % Monocytes (%) (Auto) 5.1 % Eosinophils (%) (Auto) 0.0 % Basophils (%) (Auto) 0.1 % Neutrophils # (Auto) 24.5 TH/MM3 Lymphocytes # (Auto) 1.8 TH/MM3 Monocytes # (Auto) 1.4 TH/MM3 Eosinophils # (Auto) 0.0 TH/MM3 Basophils # (Auto) 0.0 TH/MM3 CBC Comment AUTO DIFF Differential Total Cells Counted 100 Neutrophils % (Manual) 87 % Band Neutrophils % 2 % Lymphocytes % 3 % Monocytes % 7 % Neutrophils # (Manual) 24.9 TH/MM3 Myelocytes 1 % Differential Comment FINAL DIFF MANUAL Platelet Estimate LOW Platelet Morphology Comment NORMAL Keratocytes 1+ Blood Urea Nitrogen 53 MG/DL Creatinine 3.13 MG/DL Random Glucose 182 MG/DL Total Protein 5.7 GM/DL Albumin 2.3 GM/DL Calcium Level 7.9 MG/DL Phosphorus Level 4.4 MG/DL Magnesium Level 1.9 MG/DL Alkaline Phosphatase 247 U/L Aspartate Amino Transf (AST/SGOT) 91 U/L Alanine Aminotransferase (ALT/SGPT) 95 U/L Total Bilirubin 3.8 MG/DL Sodium Level 139 MEQ/L Potassium Level 3.7 MEQ/L Chloride Level 104 MEQ/L Carbon Dioxide Level 22.8 MEQ/L Anion Gap 12 MEQ/L Estimat Glomerular Filtration Rate 15 ML/MIN Ammonia LESS THAN 10 MCMOL/L Blood Gas Puncture Site ART LINE Blood Gas Patient Temperature 98.6 Blood Gas HCO3 22 mmol/L Blood Gas Base Excess -1.1 mmol/L Blood Gas Oxygen Saturation 95 % Arterial Blood pH 7.48 Arterial Blood Partial Pressure CO2 30 mmHg Arterial Blood Partial Pressure O2 101 mmHg Arterial Blood Oxygen Content 13.6 Vol % Arterial Blood Carboxyhemoglobin 1.6 % Arterial Blood Methemoglobin 1.2 % Blood Gas Hemoglobin 10.1 G/DL Oxygen Delivery Device VENTILATOR Blood Gas Ventilator Setting PRVC Blood Gas Inspired Oxygen 35 % Imaging Studies Last 24 hours Impressions Chest X-Ray 12/09/16 0600 Signed Impressions: Service Date/Time: Friday, December 09, 2016 04:06 - CONCLUSION: 1. Interval placement of nasogastric tube. 2. Bibasal opacities remain. Josef Luther MD Administered Medications Medications (Trade) Dose Ordered Sig/Dhruv Route PRN Reason Start Time Stop Time Status Last Admin Dose Admin Sodium Chloride (NS Flush) 2 ml UNSCH PRN IV FLUSH FLUSH AFTER USING IV ACCESS 12/02/16 16:15 12/06/16 20:52 Sodium Chloride (NS Flush) 2 ml BID IV FLUSH 12/02/16 21:00 12/09/16 08:37 Famotidine (Pepcid Inj) 20 mg DAILY IV PUSH 12/02/16 21:00 12/09/16 08:38 Heparin Sodium (Porcine) (Heparin Inj) 5,000 units Q12H SQ 12/02/16 17:00 Future Hold 12/04/16 04:28 Miscellaneous Information 1 [id number] XX 12/02/16 16:15 12/02/16 16:15 Chlorhexidine Gluconate (Chlorhexidine 2% Cloth) Taper DAILY@04 TOP 12/03/16 04:00 11/29/17 03:59 12/07/16 04:00 Senna/Docusate Sodium (Keely-Colace) 1 tab BID PO 12/02/16 21:00 12/08/16 15:14 Insulin Human Regular (NovoLIN R SUPPLEMENTAL SCALE) 1 ACHS SLIDING SCALE SQ 12/02/16 17:00 12/08/16 21:00 Lorazepam (Ativan Inj) 1 mg Q4H PRN IV PUSH ANXIETY 12/02/16 16:45 12/09/16 10:20 Chlorhexidine Gluconate (Peridex 0.12% Liq) 15 ml BID@08,20 MT 12/03/16 08:00 12/08/16 22:05 Fentanyl Citrate 250 ml @ 5 mls/hr TITRATE PRN IV SEDATION 12/02/16 22:15 12/09/16 02:17 Norepinephrine Bitartrate 4 mg/ Sodium Chloride 250 ml @ 7.5 mls/hr TITRATE PRN IV Blood pressure management 12/02/16 22:15 12/06/16 04:34 Sodium Chloride (NS Flush) DAILY IV FLUSH 12/03/16 09:00 12/09/16 08:37 Sodium Chloride (NS Flush) UNSCH PRN IV FLUSH SEE PROTOCOL 12/02/16 23:15 12/06/16 20:52 Hydrocortisone Sodium Succinate (SoluCORTEF INJ) 100 mg Q8H IV PUSH 12/03/16 09:00 12/09/16 08:44 Artificial Tears (Tears Naturale Opth Soln) 1 drop Q8HR PRN EACH EYE DRY EYE 12/03/16 08:15 12/04/16 17:22 Phenylephrine HCl 80 mg/Dextrose 500 ml @ 15 mls/hr TITRATE PRN IV Blood pressure Management 12/03/16 17:15 12/06/16 04:35 Sodium Chloride 1,000 ml @ 0 mls/hr UNSCH PRN OTHER SEE LABEL COMMENTS 12/05/16 17:30 12/07/16 02:14 Sodium Chloride 1,000 ml @ 0 mls/hr Q0M PRN OTHER For Prime & Rinse Back 12/07/16 10:56 12/08/16 12:21 Albumin Human 100 ml @ 60 mls/hr UNSCH PRN IV WITH DIALYSIS 12/07/16 11:00 12/08/16 12:38 Gentamicin Sulfate (Gentamicin (Dialysis) Inj) 20 mg UNSCH PRN OTHER WITH DIALYSIS 12/07/16 11:00 12/08/16 12:19 Epoetin Ronald (Epogen Inj) 10,000 units UNSCH PRN IV PUSH WITH DIALYSIS 12/07/16 11:00 12/08/16 12:19 Piperacillin Sod/ Tazobactam Sod 50 ml @ 100 mls/hr Q6H IV 12/07/16 17:00 12/08/16 23:17 Levofloxacin/ Dextrose 100 ml @ 100 mls/hr Q48H IV 12/07/16 16:00 12/07/16 16:00 Objective Remarks GENERAL: Older female, resting in bed mechanically ventilated. SKIN: Warm and dry. EYES: No scleral icterus. No injection or drainage. NECK: Supple, trachea midline. No JVD or lymphadenopathy. LYMPHATIC: No adenopathy. CARDIOVASCULAR: Regular rate and rhythm without murmurs. RESPIRATORY: Breath sounds equal bilaterally. No accessory muscle use. GASTROINTESTINAL: Abdomen soft. Cholecystostomy tube in place. EXTREMITIES: L upper extremity has lg clot. Covered with clear dressing. MUSCULOSKELETAL: Adequate muscle tone. NEUROLOGICAL: No obvious focal deficit. Awake, alert, and oriented x3. Assessment/Plan Assessment Pt has a large blood filled blister left upper arm. Per RN the oozing has been less today. It appears as thought this is localized. Would not recommend cryoprecipitate unless fibrinogen less than 100. Coagulopathy d/t sepsis but this is overall improving. She is currently being evaluated by general surgery for laparoscopic cholecystectomy and will defer these decisions to Dr Birmingham. Attending Statement The exam, history, and the medical decision-making described in the above note were completed with the assistance of the mid-level provider. I reviewed and agree with the findings presented. I attest that I had a [id number] encounter with the patient on the same day, and personally performed and documented my assessment and findings in the medical record. exam show no evidence of systemic coagulopathy with the only bleeding site left arm. PT, PTT, fibrinogen, and platelets are adequate and no need to give further factors. expect problem to resolve as infection gets better. Maddison Bustamante Dec 09, 2016 11:08 Brenton Zepeda MD Dec 09, 2016 12:33
--- NOTE | 2016-12-09 13:07 | RADRPT ---
EXAM DATE/TIME: 12/09/2016 12:19 [facility] COMPARISON: ABDOMEN SINGLE VIEW, December 05, 2016, 13:33. INDICATIONS : OG tube placement. MEDICAL HISTORY : Hypertension. SURGICAL HISTORY : None. ENCOUNTER: Initial ACUITY: 1 day PAIN SCORE: Non-responsive. LOCATION: abdomen. FINDINGS: There is an oral gastric tube in place with tip in the distal stomach. The heart size is enlarged. Th ere is mild increased density at the lung bases. Significantly dilated bowel is not seen. There is a dextro scoliosis of the thoracic spine and a levocurvature of the lumbar spine. CONCLUSION: OG tube tip in the distal stomach. Fermin Wills MD on December 09, 2016 at 13:04 Board Certified Radiologist. This report was verified electronically.
--- NOTE | 2016-12-09 13:30 | HHI.PR ---
cc: Josef Birmingham MD Subjective Subjective Notes Hemodynamically stable. Off drips Vent weaned to 35% Still on dialysis, but making about 100ml/shift Objective Vitals/I&O Vital Signs Date Time Temp Pulse Resp B/P (MAP) Pulse Ox O2 Delivery O2 Flow Rate FiO2 12/09/16 12:53 100 35 12/09/16 12:00 98.6 55 18 150/84 (106) 160/98 (118) Labs Laboratory Tests Test 12/09/16 05:02 12/09/16 06:15 White Blood Count 27.7 Red Blood Count 2.61 Hemoglobin 7.9 Hematocrit 23.3 Mean Corpuscular Volume 89.3 Mean Corpuscular Hemoglobin 30.2 Mean Corpuscular Hemoglobin Concent 33.8 Red Cell Distribution Width 15.3 Platelet Count 52 Mean Platelet Volume 9.7 Neutrophils (%) (Auto) 88.5 Lymphocytes (%) (Auto) 6.3 Monocytes (%) (Auto) 5.1 Eosinophils (%) (Auto) 0.0 Basophils (%) (Auto) 0.1 Neutrophils # (Auto) 24.5 Lymphocytes # (Auto) 1.8 Monocytes # (Auto) 1.4 Eosinophils # (Auto) 0.0 Basophils # (Auto) 0.0 CBC Comment AUTO DIFF Differential Total Cells Counted 100 Neutrophils % (Manual) 87 Band Neutrophils % 2 Lymphocytes % 3 Monocytes % 7 Neutrophils # (Manual) 24.9 Myelocytes 1 Differential Comment FINAL DIFF MANUAL Platelet Estimate LOW Platelet Morphology Comment NORMAL Keratocytes 1+ Prothrombin Time 14.0 Prothromb Time International Ratio 1.3 Activated Partial Thromboplast Time 29.4 Fibrinogen 203 Blood Urea Nitrogen 53 Creatinine 3.13 Random Glucose 182 Total Protein 5.7 Albumin 2.3 Calcium Level 7.9 Phosphorus Level 4.4 Magnesium Level 1.9 Alkaline Phosphatase 247 Aspartate Amino Transf (AST/SGOT) 91 Alanine Aminotransferase (ALT/SGPT) 95 Total Bilirubin 3.8 Sodium Level 139 Potassium Level 3.7 Chloride Level 104 Carbon Dioxide Level 22.8 Anion Gap 12 Estimat Glomerular Filtration Rate 15 Ammonia LESS THAN 10 Blood Gas Puncture Site ART LINE Blood Gas Patient Temperature 98.6 Blood Gas HCO3 22 Blood Gas Base Excess -1.1 Blood Gas Oxygen Saturation 95 Arterial Blood pH 7.48 Arterial Blood Partial Pressure CO2 30 Arterial Blood Partial Pressure O2 101 Arterial Blood Oxygen Content 13.6 Arterial Blood Carboxyhemoglobin 1.6 Arterial Blood Methemoglobin 1.2 Blood Gas Hemoglobin 10.1 Oxygen Delivery Device VENTILATOR Blood Gas Ventilator Setting PRVC Blood Gas Inspired Oxygen 35 Date/Time Source Procedure Growth Status 12/02/16 12:40 Blood Peripheral Aerobic Blood Culture - Final Klebsiella Pneumoniae Escherichia Coli Enterobacter Species Complete 12/02/16 12:40 Anaerobic Blood Culture - Final Klebsiella Pneumoniae Escherichia Coli Enterobacter Species Complete 12/03/16 14:55 Fluid Bile Fluid Gram Stain - Final Complete 12/03/16 14:55 Body Fluid Culture - Final Enterococcus Faecalis Complete 12/03/16 10:15 Sputum Endotracheal Gram Stain - Final Complete 12/03/16 10:15 Sputum Culture - Final Escherichia Coli Complete 12/03/16 09:40 Urine Catheterized Urine Streptococcus pneumoniae Antigen (M - Final PRESUMPTIVE NEGATIVE FOR STREPTOCOCCU... Complete Radiology Last 48 hours Impressions Percutaneous Cholangiogram 12/03/16 0000 Signed Impressions: Service Date/Time: Saturday, December 03, 2016 14:31 - CONCLUSION: Uncomplicated percutaneous cholecystostomy as above. Nain Sharma Jr., MD Chest X-Ray 12/02/16 2305 Signed Impressions: Service Date/Time: Friday, December 02, 2016 23:12 - CONCLUSION: 1. Satisfactory position of endotracheal tube as above. 2. Uncomplicated line placement. No evidence of pneumothorax. Royal Messer MD Chest X-Ray 12/02/16 1217 Signed Impressions: Service Date/Time: Friday, December 02, 2016 12:56 - CONCLUSION: Cardiomegaly. Left lower lobe atelectasis versus pneumonia. Royal Messer MD Liver Ultrasound 12/02/16 0000 Signed Impressions: Service Date/Time: Friday, December 02, 2016 19:12 - CONCLUSION: 1. Cholelithiasis with wall thickening and trace pericholecystic fluid. 2. No evidence of biliary duct distention. 3. No other significant abnormality. Jak Hughes MD Abdomen/Pelvis CT 12/02/16 0000 Signed Impressions: Service Date/Time: Friday, December 02, 2016 15:09 - CONCLUSION: 1. No evidence of acute abdominal or pelvic process. No masses are identified. 2. Cholelithiasis 3. Left lower lobe atelectasis versus pneumonia. 4. A large hiatal hernia is present. 5. Diverticulosis without evidence of diverticulitis. Royal Messer MD Abdomen: Non-distended, Non-tender Narrative Exam Cholecystostomy tube flushed with IR personnel today; bile is brown and thin, not viscous. Aleah tube easily flushes. A/P Assessment and Plan Assessment: Long discussion with daughter, , Dr. Clancy (CC), and Dr. Knight (GI) , as well as hematology (Dr. Zepeda). Although WBC's are increasing and pt still thrombocytopenic, it is felt that she is still recovering from Gram negative sepsis with multiorgan dysfunction/ failure. Plan: Bilirubin is still elevated, but other LFT's are improving; not felt to be primary biliary obstruction or source for continued issues. MRCP not needed, unless bilirubin does not come down over next few days Surgery not indicated at this time. Will be a candidate in a few weeks if she continues to improve; would prefer to wait until renal function returns. Time spent coordinating care and assessing patient, excluding procedure time, 45 mins. Josef Birmingham MD Dec 09, 2016 13:30
[2016-12-09] MEDS: hydrALAZINE HCL 25 MG TAB PO SCH ×2 (14:00→22:01)
--- NOTE | 2016-12-09 14:33 | HHI.NPPN ---
Subjective History of Present Illness 71 year old with septic shock, ARF Additional Remarks Patient remain intubated, sedated and clinically same. Objective Data Data Vital Signs Date Time Temp Pulse Resp B/P (MAP) Pulse Ox O2 Delivery O2 Flow Rate FiO2 12/09/16 14:00 58 12/09/16 12:53 100 35 12/09/16 12:00 98.6 55 18 150/84 (106) 100 160/98 (118) 12/09/16 12:00 55 12/09/16 12:00 35 12/09/16 12:00 55 150/84 (106) 160/98 (118) 12/09/16 10:13 100 35 12/09/16 10:00 92 12/09/16 08:00 35 12/09/16 08:00 91 163/99 (120) 174/97 (122) 12/09/16 08:00 98.1 91 18 163/99 (120) 98 174/97 (122) 12/09/16 08:00 91 12/09/16 07:23 100 35 12/09/16 06:00 70 12/09/16 04:00 35 12/09/16 04:00 98.1 64 18 146/78 (100) 100 164/84 (110) 12/09/16 04:00 64 12/09/16 04:00 64 146/78 (100) 164/84 (110) 12/09/16 03:30 100 35 12/09/16 02:00 66 12/09/16 01:00 100 70 12/09/16 00:00 64 12/09/16 00:00 35 12/09/16 00:00 98.0 64 18 139/81 (100) 100 158/84 (108) 12/09/16 00:00 64 139/81 (100) 158/84 (108) 12/08/16 22:08 98.4 78 18 168/93 100 12/08/16 22:00 75 12/08/16 21:51 98.5 70 18 167/89 100 12/08/16 21:34 100 35 12/08/16 20:00 86 12/08/16 20:00 86 139/80 (99) 158/85 (109) 12/08/16 20:00 98.5 86 18 139/80 (99) 97 158/85 (109) 12/08/16 20:00 35 12/08/16 18:00 114 12/08/16 17:50 97 35 12/08/16 16:04 97 35 12/08/16 16:00 98.8 76 18 140/82 (101) 97 147/71 (96) 12/08/16 16:00 73 12/08/16 16:00 35 12/08/16 16:00 76 118/74 (89) 147/71 (96) -: 12/09/16 0502 12/09/16 0502 Physical Exam General Appearance Remarks Intubated and open eyes. Neck Neck Exam: Neck Supple Pulmonary Resp Exam: Clear Bilaterally Cardiology CV Exam: Regular Gastrointestinal/Abdomen GI Exam: Soft, Bowel Sounds Present, Non-Distended Integumentary Skin Exam: Clear Extremeties Extremities Exam: Moderate Edema, Pitting Edema, Dependent Edema Assessment/Plan Problem List: (1) Acute kidney injury ICD Codes: N17.9 - Acute kidney failure, unspecified Status: Acute Plan: Patient has septic shock and acute tubular necrosis making small amount of urine, check urine sodium and osmolality and creatinine Continue supportive care with IV fluids and antibiotics and vasopressors If conservative approach fails to reverse the ARF Continue to monitor avoid Nephrotoxins. Patient now started on intermittent HD, tolerated yesterday. Urine out put is still low. Next HD tomorrow or . Dr. Carlos will follow from AM. (2) Acute cholecystitis ICD Codes: K81.0 - Acute cholecystitis Plan: Status post cholecystostomy (3) Sepsis ICD Codes: A41.9 - Sepsis, unspecified organism Status: Acute Plan: On antibiotics Problem Qualifiers (1) Sepsis: Qualified Codes: A41.9 - Sepsis, unspecified organism Otf Boyle MD Dec 09, 2016 14:33
[2016-12-09] MEDS: LEVOFLOXACIN 500 MG PREMIX INJ 100 ML IV SCH (15:42)
[2016-12-09 21:27] LABS: AMORPHOUS SEDIMENT, URINE RARE; BACTERIA, URINE RARE /hpf; BILIRUBIN, URINE NEG (NEG); BLOOD, URINE MOD (NEG); GLUCOSE,URINE 150 mg/dL (NEG); KETONE, URINE NEG (NEG); NITRITE,URINE NEG (NEG); PH, URINE 6.5 (5.0-8.5); SQUAMOUS EPITHELIAL CELL URINE 4 /hpf (0-5); TRANSITIONAL EPI CELLS, URINE 5 /hpf; URINE COLOR YELLOW (YELLW/STRAW); URINE LEUKOCYTE ESTERASE NEG (NEG)
[2016-12-10] VITALS (19 sets, daily range): BP systolic 103–158; BP diastolic 57–84; PULSE 65–101; RESP 16–18; TEMP 97.7–98.8; O2SAT 94–100
[2016-12-10] MEDS: HYDROCORTISONE SOD SUCCINATE 100 MG VIAL IV PUSH SCH ×3 (00:24→16:48)
[2016-12-10] MEDS: CHLORHEXIDINE GLUCONATE 2 % 1 PACK (2 CLOTHS) TOP SCH (04:00)
[2016-12-10] MEDS: hydrALAZINE HCL 25 MG TAB PO SCH (05:23)
[2016-12-10] MEDS: PIPERACIL-TAZO 2.25 GM PREMIX 50 ML IV SCH ×4 (05:23→23:36)
[2016-12-10 05:45] LABS: HEMOGLOBIN 8.3 GM/DL (11.6-15.3); MEAN CELL VOLUME 89.9 FL (80.0-100.0); MEAN CORPUSCULAR HEMOGLOBIN 29.8 PG (27.0-34.0); MEAN CORPUSCULAR HGB CONC 33.2 % (32.0-36.0); MEAN PLATELET VOLUME 10.9 FL (7.0-11.0); PLATELET COUNT 51 TH/MM3 (150-450); RED BLOOD COUNT 2.78 MIL/MM3 (4.00-5.30); RED CELL DISTRIBUTION WIDTH 15.7 % (11.6-17.2); WHITE BLOOD COUNT 33.7 TH/MM3 (4.0-11.0)
[2016-12-10 05:54] LABS: INTERNATIONAL NORMALIZED RATIO 1.3 RATIO; PROTHROMBIN TIME - PATIENT 14.7 SEC (9.8-11.6)
[2016-12-10 06:29] LABS: ALKALINE PHOSPHATASE 249 U/L (45-117); ALT (GPT) 71 U/L (10-53); AST (GOT) 58 U/L (15-37); BICARBONATE 23.6 MEQ/L (21.0-32.0); BLOOD UREA NITROGEN 73 MG/DL (7-18); CALCIUM 8.2 MG/DL (8.5-10.1); CHLORIDE 102 MEQ/L (98-107); CREATININE 3.87 MG/DL (0.50-1.00); GLOMERULAR FILTRATION RATE 11 ML/MIN (>89); GLUCOSE,RANDOM 175 MG/DL (74-106); SODIUM (NA) 141 MEQ/L (136-145); TOTAL BILIRUBIN ADULT 3.6 MG/DL (0.2-1.0); TOTAL PROTEIN 5.2 GM/DL (6.4-8.2)
[2016-12-10 07:24] LABS: BANDS 4 % (0-6); CORRECTED NUCLEATED RBC 2 /100 WBC (0-0); LYMPHOCYTES 2 % (9-44); MONOCYTES 2 % (0-8); NEUTROPHIL # MANUAL DIFF 32.4 TH/MM3 (1.8-7.7); NUCLEATED RED BLOOD CELL 2 (0-0); POLYS (SEG NEUTROPHILS) 92 % (16-70)
[2016-12-10 07:25] LABS: KERATOCYTES OCC (NORMAL)
[2016-12-10] MEDS: INSULIN NovoLIN REGULAR SUPPLEMENTAL SCALE SQ SCH ×4 (08:00→21:00)
--- NOTE | 2016-12-10 08:47 | HHI.CCPN ---
Subjective Remarks/Hospital Course This is a 71-year-old female presents to the ED via EMS for evaluation of fever , shortness breath, vomiting, diarrhea, abdominal pain She reports that she's been short of breath for the past 2 weeks, but has progressed in the past 2 days. Patient has been seeing a helper steel fabrication for her shortness of breath, is not on home oxygen. The patient reported she has a history of smoking. She is also complaining of abdominal pain that started 2 days ago with vomiting and diarrhea. Patient has severe tenderness to mild palpation. She has history of MA. She received 500 mL normal saline IV bolus, and Zofran 4 mg IV. Critical care medicine was consulted. Subjective: 12/03: Tmax 100.9. Last evening the patient was noted to have significant respiratory decompensation with requirement for emergent intubation. The patient subsequently became hemodynamically unstable requiring vasopressor support. Patient is lightly sedated, and continues to have abdominal pain, and hypoactive bowel sounds, GI has been consulted. HIDA scan previously scheduled for this morning, after discussion with Dr Goodrich , plan for cholecystostomy tube placement by IR. Ultrasound liver showed no biliary duct distention but notable thickened gallbladder wall. 12/04: Tmax 100.4. Patient continues with severe metabolic acidosis, sodium bicarbonate infusion increased to 150 cc/hour yesterday afternoon. Antibiotics were expanded yesterday with addition of Micafungin and Diflucan. Blood cultures resulted with Enterobacter, Klebsiella pneumoniae and Escherichia coli. ID consulted recommendations appreciated. Patient is status post placement of percutaneous cholecystostomy tube . Patient now icteric, but LFTs are trending down. Records obtained from primary care physician with cardiology reports from earlier in the year, patient with noted pulmonary hypertension and NYHA class III. In-hospital echo pending. Patient continues on 3 pressors to maintain blood pressure. 12/05: Patient has been weaned off of vasopressor continues on to agents Gurinder- Synephrine, norepinephrine at low doses. Patient noted to still be thrombocytopenic platelet count decreased today HIT panel pending. INR remains elevated no active signs of bleeding liver function enzymes remain elevated. No urine output over the last 12 hours nephrology following discussion with for possible hemodialysis, will await nephrology recommendations. Sodium bicarbonate infusion discontinued. Patient remains alert GCS 11 T. 12/06: Afebrile. The patient continues on CRRT initiated last night, tolerating it well patient continues only on phenylephrine infusion to maintain MAP. The patient received 2 units of FFP per hematology/oncology recommendations. 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 12/07: Afebrile. Vasopressors discontinued at 4 AM, CRRT completed, patient will be transitioned to IHD 2 times a week. Patient was noted to be severely thrombocytopenic platelet count 32 ,plan for transfusions of platelets, fibrinogen level decreasing. Bile specimen noted to result Enterococcus faecalis, contacted Dr. Portillo general surgery updated him discussion regarding elective versus semielective laparoscopic cholecystectomy ,informed that no surgical intervention indicated at this time. Cholecystostomy tube continues to drain. 12/08: Afebrile. The patient has been transitioned to IHD 2 times a week. 3 L removal of fluid today. The patient remains hemodynamically stable off of all vasopressors greater than 24 hours at this time. A chin continues to have persistent leukocytosis with elevation in WBC count and downward trend up fibrinogen level . Cholecystostomy tube low output, CT scan abdomen pending. General surgery reconsulted to review surgical options for patient. 12/09 Patient is sedated with Fentanyl and intubated. s/p HD yesterday with removal 3L. NPO for possible OR today. 12/10 No events overnight. Sedated with Fentanyl and intubated. Afebrile. Objective Vital Signs Date Time Temp Pulse Resp B/P (MAP) Pulse Ox O2 Delivery O2 Flow Rate FiO2 12/10/16 07:30 100 35 12/09/16 18:00 60 12/09/16 16:00 98.1 18 160/83 (108) 166/90 (115) Result Diagram: 12/10/1617 12/10/16 0517 Other Results Laboratory Tests Test 12/09/16 18:00 12/10/16 05:17 Urine Color YELLOW Urine Turbidity HAZY Urine pH 6.5 Urine Specific [place] 1.013 Urine Protein 100 mg/dL Urine Glucose (UA) 150 mg/dL Urine Ketones NEG mg/dL Urine Occult Blood MOD Urine Nitrite NEG Urine Bilirubin NEG Urine Urobilinogen LESS THAN 2.0 MG/DL Urine Leukocyte Esterase NEG Urine RBC 14 /hpf Urine WBC 28 /hpf Urine Squamous Epithelial Cells 4 /hpf Urine Transitional Epithelial Cells 5 /hpf Urine Amorphous Sediment RARE Urine Bacteria RARE /hpf Microscopic Urinalysis Comment CATH-CULTURE IND White Blood Count 33.7 TH/MM3 Red Blood Count 2.78 MIL/MM3 Hemoglobin 8.3 GM/DL Hematocrit 25.0 % Mean Corpuscular Volume 89.9 FL Mean Corpuscular Hemoglobin 29.8 PG Mean Corpuscular Hemoglobin Concent 33.2 % Red Cell Distribution Width 15.7 % Platelet Count 51 TH/MM3 Mean Platelet Volume 10.9 FL CBC Comment AUTO DIFF Differential Total Cells Counted 100 Neutrophils % (Manual) 92 % Band Neutrophils % 4 % Lymphocytes % 2 % Monocytes % 2 % Neutrophils # (Manual) 32.4 TH/MM3 Nucleated Red Blood Cells 2 /100 WBC Differential Comment FINAL DIFF MANUAL Platelet Estimate LOW Platelet Morphology Comment ENLARGED Keratocytes OCC Prothrombin Time 14.7 SEC Prothromb Time International Ratio 1.3 RATIO Activated Partial Thromboplast Time 29.4 SEC Fibrinogen 168 mg/dL Blood Urea Nitrogen 73 MG/DL Creatinine 3.87 MG/DL Random Glucose 175 MG/DL Total Protein 5.2 GM/DL Albumin 2.0 GM/DL Calcium Level 8.2 MG/DL Alkaline Phosphatase 249 U/L Aspartate Amino Transf (AST/SGOT) 58 U/L Alanine Aminotransferase (ALT/SGPT) 71 U/L Total Bilirubin 3.6 MG/DL Sodium Level 141 MEQ/L Potassium Level 4.1 MEQ/L Chloride Level 102 MEQ/L Carbon Dioxide Level 23.6 MEQ/L Anion Gap 15 MEQ/L Estimat Glomerular Filtration Rate 11 ML/MIN Imaging Last Impressions Chest X-Ray 12/09/16 06 Signed Impressions: Service Date/Time: Friday, December 09, 2016 04:06 - CONCLUSION: 1. Interval placement of nasogastric tube. 2. Bibasal opacities remain. Josef Luther MD Abdomen X-Ray 12/09/16 0000 Signed Impressions: Service Date/Time: Friday, December 09, 2016 12:19 - CONCLUSION: OG tube tip in the distal stomach. Fermin Wills MD Abdomen CT 12/08/16 0000 Signed Impressions: Service Date/Time: Thursday, December 08, 2016 17:52 - CONCLUSION: 1. Cholecystostomy tube in good position. Nain Sharma Jr., MD Abdomen/Pelvis CT 12/04/16 0600 Signed Impressions: Service Date/Time: Sunday, December 04, 2016 09:35 - CONCLUSION: 1. Interval placement of a cholecystostomy tube. 2. Bibasilar consolidation likely related to atelectasis. This is unchanged. 3. Tip of the NG tube in the hiatal hernia. 4. Small volume ascites. 5. No acute abnormality observed. Nain Sharma Jr., MD Percutaneous Cholangiogram 12/03/16 0000 Signed Impressions: Service Date/Time: Saturday, December 03, 2016 14:31 - CONCLUSION: Uncomplicated percutaneous cholecystostomy as above. Nain Sharma Jr., MD Liver Ultrasound 12/02/16 0000 Signed Impressions: Service Date/Time: Friday, December 02, 2016 19:12 - CONCLUSION: 1. Cholelithiasis with wall thickening and trace pericholecystic fluid. 2. No evidence of biliary duct distention. 3. No other significant abnormality. Jak Hughes MD Objective Remarks Infusions: Versed 2 mg/hour Fentanyl 50 mcgs BP 121/59 Pulse 83 O2 saturation 95% on FiO2 of 35% GENERAL: Critically ill appearing appropriately stated age female intubated and mild sedation, and tenuous eye opening SKIN: Warm and dry. HEAD: Atraumatic. Normocephalic. EYES: Pupils equal and round. Mild scleral icterus, decreasing. No injection or drainage. Extraocular movements intact ENT: No nasal bleeding or discharge. Mucous membranes pink and moist. Orotracheally intubated NECK: Trachea midline. No JVD. CARDIOVASCULAR: Normal rate, regular rhythm. Telemetry sinus rhythm RESPIRATORY: No accessory muscle use. Clear to auscultation. Breath sounds equal bilaterally. GASTROINTESTINAL: Abdomen soft,nondistended, tender to palpation. No guarding. MUSCULOSKELETAL: Extremities without clubbing, cyanosis, or edema. No obvious deformities. Right groin Vas-Cath site soft no erythema/drainage NEUROLOGICAL: RASS -2. No gross focal/sensory deficits. Not following commands today Procedures 12/02-abdominal ultrasound 12/03- percutaneous cholecystostomy tube placement 12/05-patient of CRRT, completion 12/07 12/08-initiation of IHD Date of Insertion: Dec 02, 2016 Line: Central Venous Catheter Side: Left Location: Femoral A/P Assessment and Plan ASSESSMENT Abdominal pain Hiatal hernia Diverticulitis Cholelithiasis with cholecystitis Transaminitis Nausea Hyperlipidemia Hypertension History of MA Coronary artery disease-S/P angioplasty 2 History of systolic CHF Acute hypoxemic respiratory failure Probable community-acquired pneumonia Hypokalemia Alcohol use disorder Elevated creatinine Pancytopenia Transaminitis Acute renal failure Multisystem organ failure secondary to septic shock Acute decompensated systolic heart failure Coagulopathy Bandemia Persistent leukocytosis Critical illness polyneuropathy PLAN Neurologic: Neurochecks per ICU protocol Fentanyl infusion for ventilator synchrony- Monitor for signs of alcohol withdrawal Daily sedation vacation-patient remains GCS 11 T Seizure precautions s/p folate and MVI. Thiamine 100mg daily Respiratory: Continue with vent support keep sat >92% Bronchodilators 36 hours scheduled, every 2 hours PRN 12/02-intubation 7.5 ETT Ventilator bundle. Start SBT daily as arti. Cardiovascular: Increase Hydralazine 50mg Q8-Monitor HR and BP keep MAP>65mmHg Initial troponin 0.07->0.11->0.49. 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 NYHA classification III-per previous records Renal Monitor renal function, I/O's, avoid nephrotoxins. s/p HD 12/08 with 3L fluid removal. Cr: 3.87 from 3.13 Nephrology following-Dr. Carlos, 12/05 initiation of CRRT 12/08 initiation of IHD-schedule per nephrology -- Strict I/Os FEN/GI: Keep NPO for now. Start trickle feed sif ok with GI. GI and surgery are following. Discussed with Dr. [place] yesterday. 12/02 CT abdomen pelvis-diverticulosis without diverticulitis, large hiatal hernia, cholelithiasis, no acute process ultrasound abdomen-no biliary duct dilatation, cholelithiasis with cholecystitis trace pericholecystic fluid 12/03- percutaneous cholecystostomy drain placement percutaneous cholecystostomy draining (Bile- Enterococcus faecalis)- monitor drainage 12/[address] Pathak bile fluid-Enterococcus faecalis-no surgical intervention at this time, plan for tentative semi-elective versus elective cholecystectomy in the future 12/08 general surgery reconsulted to review surgical options-vasopressor pressor support is not required, patient remains with elevated leukocytosis, will follow up recommendations Hold statin in the setting of elevated LFTs 12/[address] abd /pelvis - 12/04 BNP > 5000 -in the setting of acute renal failure, septic shock, and decompensated heart failure 12/07 CRRT discontinued patient will begin IHD 2 times a week Heme/ID: ID consulted-Dr. Ramos, and abx per ID (Zosyn, Levaquin) 12/09 Pancultured- BC, sputum cx, Urine-NGTD 12/03 blood cultures-Enterobacter, Klebsiella pneumoniae, Escherichia coli 12/03 Legionella, influenza , pneumococcal antigen- negative 12/03 sputum culture-E coli 12/03: Bile fluid-Enterococcus faecalis Hematology oncology following INR 1.8-no active signs of bleeding 12/05 HIT panel-negative 12/06 2 units of FFP per hematology recommendations 12/07 transfuse 2 units of platelets 12/08-fibrinogen level Downward trend 392->213-> 165 today- transfuse 1 unit of cryoprecipitate Monitor CBC Endocrine: Glucose monitoring per ICU protocol -- SSI MSK: PT evaluation and treat Consult hand surgery for wound left forearm. Prophylaxis: GI Prophylaxis Famotidine DVT Prophylaxis -- SCDs Heparin 5000 SQ BID (on Hold) in the setting of thrombocytopenia Lines: PIV's x 2. Central line left IJ, Art line left femoral, right femoral Vas-Cath Palliative care is following Discussed with patent's family yesterday and updated them on her condition. CCT 30 mins Kassandra Goodwin MD Dec 10, 2016 08:47
[2016-12-10] MEDS: FAMOTIDINE 20 MG/2 ML VIAL IV PUSH SCH (09:15)
[2016-12-10] MEDS: SODIUM CHLORIDE 0.9% FLUSH 10 ML FLUSH IV FLUSH SCH ×3 (09:18→21:14)
[2016-12-10] MEDS: DOCUSATE SODIUM 50 MG/SENNA 8.6 MG TAB PO SCH ×2 (09:18→21:17)
[2016-12-10] MEDS: CHLORHEXIDINE 0.12% (ORAL KIT) 15 ML CUP MT SCH ×2 (09:19→21:14)
--- NOTE | 2016-12-10 10:33 | HHI.GIFU ---
Subjective Remarks Resting in bed. Lightly sedated on ventilator. Does open eyes to name. Cholecystomy tube site is leaking. Objective Vitals I&O Vital Signs Date Time Temp Pulse Resp B/P (MAP) Pulse Ox O2 Delivery O2 Flow Rate FiO2 12/10/16 07:30 100 35 12/10/16 06:00 71 12/10/16 04:00 70 12/10/16 04:00 70 158/83 (108) 157/84 (108) 12/10/16 04:00 35 12/10/16 04:00 97.7 70 18 134/77 (96) 100 157/84 (108) 12/10/16 03:39 100 35 12/10/16 02:00 78 12/10/16 00:19 100 35 12/10/16 00:00 97.8 65 18 138/75 (96) 100 140/82 (101) 12/10/16 00:00 35 12/10/16 00:00 65 138/75 (96) 140/82 (101) 12/10/16 00:00 65 12/09/16 22:00 76 12/09/16 20:15 100 35 12/09/16 20:00 97.5 71 18 145/86 (105) 100 164/97 (119) 12/09/16 20:00 35 12/09/16 20:00 71 12/09/16 20:00 60 145/86 (105) 164/97 (119) 12/09/16 18:00 60 12/09/16 16:21 99 35 12/09/16 16:00 98.1 61 18 160/83 (108) 99 166/90 (115) 12/09/16 16:00 60 12/09/16 16:00 35 12/09/16 16:00 60 155/86 (109) 165/89 (114) 12/09/16 14:00 58 12/09/16 12:53 100 35 12/09/16 12:00 98.6 55 18 150/84 (106) 100 160/98 (118) 12/09/16 12:00 55 12/09/16 12:00 35 12/09/16 12:00 55 150/84 (106) 160/98 (118) I/O 12/09/16 12/09/16 12/09/16 12/10/16/23/17 10/23/17 07:00 15:00 23:00 07:00 15:00 23:00 Intake Total 502 ml 50 ml 150 ml 180 ml Output Total 112 ml 128 ml 150 ml Balance 390 ml 50 ml 22 ml 30 ml Intake IV Total 300 ml 50 ml 150 ml 100 ml Tube Feeding 142 ml Tube Irrigant 60 ml 80 ml Output Urine Total 100 ml 115 ml 130 ml Stool Total 2 ml Drainage Total 10 ml 13 ml 20 ml # Bowel Movements 1 2 Laboratory Laboratory Tests Test 12/09/16 18:00 12/10/16 05:17 Urine Color YELLOW Urine Turbidity HAZY Urine pH 6.5 Urine Specific [place] 1.013 Urine Protein 100 Urine Glucose (UA) 150 Urine Ketones NEG Urine Occult Blood MOD Urine Nitrite NEG Urine Bilirubin NEG Urine Urobilinogen LESS THAN 2.0 Urine Leukocyte Esterase NEG Urine RBC 14 Urine WBC 28 Urine Squamous Epithelial Cells 4 Urine Transitional Epithelial Cells 5 Urine Amorphous Sediment RARE Urine Bacteria RARE Microscopic Urinalysis Comment CATH-CULTURE IND White Blood Count 33.7 Red Blood Count 2.78 Hemoglobin 8.3 Hematocrit 25.0 Mean Corpuscular Volume 89.9 Mean Corpuscular Hemoglobin 29.8 Mean Corpuscular Hemoglobin Concent 33.2 Red Cell Distribution Width 15.7 Platelet Count 51 Mean Platelet Volume 10.9 CBC Comment AUTO DIFF Differential Total Cells Counted 100 Neutrophils % (Manual) 92 Band Neutrophils % 4 Lymphocytes % 2 Monocytes % 2 Neutrophils # (Manual) 32.4 Nucleated Red Blood Cells 2 Differential Comment FINAL DIFF MANUAL Platelet Estimate LOW Platelet Morphology Comment ENLARGED Keratocytes OCC Prothrombin Time 14.7 Prothromb Time International Ratio 1.3 Activated Partial Thromboplast Time 29.4 Fibrinogen 168 Blood Urea Nitrogen 73 Creatinine 3.87 Random Glucose 175 Total Protein 5.2 Albumin 2.0 Calcium Level 8.2 Alkaline Phosphatase 249 Aspartate Amino Transf (AST/SGOT) 58 Alanine Aminotransferase (ALT/SGPT) 71 Total Bilirubin 3.6 Sodium Level 141 Potassium Level 4.1 Chloride Level 102 Carbon Dioxide Level 23.6 Anion Gap 15 Estimat Glomerular Filtration Rate 11 Date/Time Source Procedure Growth Status 12/09/16 15:13 Blood Peripheral Aerobic Blood Culture Pending Received 12/09/16 15:13 Blood Peripheral Anaerobic Blood Culture Pending Received 12/03/16 14:55 Fluid Bile Fluid Gram Stain - Final Complete 12/03/16 14:55 Body Fluid Culture - Final Enterococcus Faecalis Complete 12/09/16 15:50 Sputum Endotracheal Gram Stain - Final Resulted 12/09/16 15:50 Sputum Endotracheal Sputum Culture Pending Resulted 12/09/16 18:00 Urine Catheterized Urine Urine Culture Pending Received Imaging Last Impressions Chest X-Ray 12/09/16 0600 Signed Impressions: Service Date/Time: Friday, December 09, 2016 04:06 - CONCLUSION: 1. Interval placement of nasogastric tube. 2. Bibasal opacities remain. Josef Luther MD Abdomen X-Ray 12/09/16 0000 Signed Impressions: Service Date/Time: Friday, December 09, 2016 12:19 - CONCLUSION: OG tube tip in the distal stomach. Fermin Wills MD Abdomen CT 12/08/16 0000 Signed Impressions: Service Date/Time: Thursday, December 08, 2016 17:52 - CONCLUSION: 1. Cholecystostomy tube in good position. Nain Sharma Jr., MD Abdomen/Pelvis CT 12/04/16 0600 Signed Impressions: Service Date/Time: Sunday, December 04, 2016 09:35 - CONCLUSION: 1. Interval placement of a cholecystostomy tube. 2. Bibasilar consolidation likely related to atelectasis. This is unchanged. 3. Tip of the NG tube in the hiatal hernia. 4. Small volume ascites. 5. No acute abnormality observed. Nain Sharma Jr., MD Percutaneous Cholangiogram 12/03/16 0000 Signed Impressions: Service Date/Time: Saturday, December 03, 2016 14:31 - CONCLUSION: Uncomplicated percutaneous cholecystostomy as above. Nain Sharma Jr., MD Liver Ultrasound 12/02/16 0000 Signed Impressions: Service Date/Time: Friday, December 02, 2016 19:12 - CONCLUSION: 1. Cholelithiasis with wall thickening and trace pericholecystic fluid. 2. No evidence of biliary duct distention. 3. No other significant abnormality. Jak Hughes MD Physical Exam GEN: Sedated on vent. HEENT: Normocephalic; atraumatic; no jaundice. CHEST: Resp even/unlabored, OETT to vent. Course breath sounds CARDIAC: RRR ABDOMEN: Soft, mildly distended, cholecystomy tube site leaking, bowel sounds are hypoactive EXTREMITIES: Edema BUE SKIN: Normal; no rash; no jaundice. 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 Assessment and Plan Plan ASSESSMENT: - Cholecystitis. CT scan abdomen and pelvis without iv contrast (12/02/16)---> No evidence of acute abdominal or pelvic process. No masses are identified. Cholelithiasis. Left lower lobe atelectasis versus pneumonia, a large hiatal hernia is present, diverticulosis without evidence of diverticulitis. Liver US (12/02/16)---> Cholelithiasis with wall thickening and trace pericholecystic fluid, no evidence of biliary duct distention, no other significant abnormality. Bacteremia with multiple organisms. GS following, s/p cholecystomy tube 12/03. Zosyn, Levaquin, T. BIli 3.6, AST 58, ALT 71, Alk Phosph 249. Cholecystomy tube leaking, will have IR nurse evaluate. - FEN/Malnutrition. Nurse was unable to place OGT (would not advance). Attempt at NGT/Dobbhoff was unsuccessful. S/P EGD with OGT placement (12/07/16)----> Hiatal hernia. Successful OG tube placement. Tolerating TF. [employer] Equipment Tender recommends Nepro GR 45cc/hr. - Epistaxis. (after attempted Dobbhoff placement) resolved. - Thrombocytopenia, Coagulopathy. S/P 2 units of FFP. HIT negative - Elevated LFTs. No evidence of biliary duct obstruction. No evidence of pancreatitis or dilated ducts on imaging. Unclear if this is all cholecystis, or passed stone, or possible ETOH and cholecystitis. S/P Cholecystomy tube. Hepatitis profile negative, HERBER negative, AMA <20.0, ASMA neg, Iron saturation 2.7%, Ferritin 306, ALpha 1 antitrypsin 209, Ceruloplasmin 32, AFP. LFTs improving - Severe sepsis with multisystem failure. BCx from 12/02/16 grew enterobacter species, klebsiella pneumoniae, escherichia coli, and GNR in the anaerobic bottle. Bile cx Group D Enterococcus. Sputum Cx E. Coli. Rpt urine, sputum, blood culture pending. Zosyn, Levaquin. WBC 33.7. - Anemia. HH 8.3/25.0. - Abdominal pain, nausea, decreased appetite. Likely related to cholecystis. Currently sedated. - ARF with severe electrolyte abnormalities. S/P CVVHD, now transitioned to HD. Scheduled for or saturday. Per nephrology - Resp. Failure/PNA. CXR LLL atelectasis vs. pna, resolving right basilar atelectasis. Cx E. Coli. vent per CCM - Chronic back pain r/t scoliosis. Uses medical marijuana via vaping and takes 4 shots of scotch per day to help with her pain control. Last had these 2 weeks ago. - CAD, Hx HTN, Hyperlipidemia per attending. PLAN: - Nepro 45cc/hr - Abx per ID recommendations - Have IR nurse evaluate leaking cholecystomy tube - S/P Cholecystomy tube placement by IR (12/03) - Monitor labs - Supportive care - Further recommendations to follow based on results of above Danica Shipley Dec 10, 2016 10:33
--- NOTE | 2016-12-10 10:43 | HHI.NPPN ---
Subjective History of Present Illness 71 year old with septic shock, ARF Additional Remarks Patient remain intubated, sedated and clinically same. Objective Data Data Vital Signs Date Time Temp Pulse Resp B/P (MAP) Pulse Ox O2 Delivery O2 Flow Rate FiO2 12/10/16 07:30 100 35 12/10/16 06:00 71 12/10/16 04:00 70 12/10/16 04:00 70 158/83 (108) 157/84 (108) 12/10/16 04:00 35 12/10/16 04:00 97.7 70 18 134/77 (96) 100 157/84 (108) 12/10/16 03:39 100 35 12/10/16 02:00 78 12/10/16 00:19 100 35 12/10/16 00:00 97.8 65 18 138/75 (96) 100 140/82 (101) 12/10/16 00:00 35 12/10/16 00:00 65 138/75 (96) 140/82 (101) 12/10/16 00:00 65 12/09/16 22:00 76 12/09/16 20:15 100 35 12/09/16 20:00 97.5 71 18 145/86 (105) 100 164/97 (119) 12/09/16 20:00 35 12/09/16 20:00 71 12/09/16 20:00 60 145/86 (105) 164/97 (119) 12/09/16 18:00 60 12/09/16 16:21 99 35 12/09/16 16:00 98.1 61 18 160/83 (108) 99 166/90 (115) 12/09/16 16:00 60 12/09/16 16:00 35 12/09/16 16:00 60 155/86 (109) 165/89 (114) 12/09/16 14:00 58 12/09/16 12:53 100 35 12/09/16 12:00 98.6 55 18 150/84 (106) 100 160/98 (118) 12/09/16 12:00 55 12/09/16 12:00 35 12/09/16 12:00 55 150/84 (106) 160/98 (118) -: 12/10/1617 12/10/16 05 Microbiology 12/09/16 Aerobic Blood Culture, Received Pending 12/09/16 Anaerobic Blood Culture, Received Pending 12/09/16 Aerobic Blood Culture, Received Pending 12/09/16 Anaerobic Blood Culture, Received Pending 12/09/16 Gram Stain - Final, Resulted 12/09/16 Sputum Culture, Resulted Pending 12/09/16 Urine Culture, Received Pending Physical Exam Neck Neck Exam: Neck Supple Pulmonary Resp Exam: Clear Bilaterally Cardiology CV Exam: Regular Gastrointestinal/Abdomen GI Exam: Soft, Bowel Sounds Present, Non-Distended Integumentary Skin Exam: Clear Extremeties Extremities Exam: Moderate Edema, Pitting Edema, Dependent Edema Assessment/Plan Problem List: (1) Acute kidney injury ICD Codes: N17.9 - Acute kidney failure, unspecified Status: Acute Plan: Patient has septic shock and acute tubular necrosis making small amount of urine, check urine sodium and osmolality and creatinine Continue supportive care Continue to monitor avoid Nephrotoxins. Patient now started on intermittent HD, tolerated yesterday. Urine out put is still low. Next HD tomorrow or Tues. last HD sat 3 L removed WBC high platelets 51 k on Vent d/w family (2) Acute cholecystitis ICD Codes: K81.0 - Acute cholecystitis Plan: Status post cholecystostomy (3) Sepsis ICD Codes: A41.9 - Sepsis, unspecified organism Status: Acute Plan: On antibiotics Problem Qualifiers (1) Sepsis: Qualified Codes: A41.9 - Sepsis, unspecified organism Myrtle Carlos MD Dec 10, 2016 10:43
--- NOTE | 2016-12-10 12:16 | HHI.HCPN ---
Reason for visit a. To assist with evaluation and management of symptoms including: dyspnea, pain, and debility b. To assist medical decision maker(s) with: better understanding of current medical conditions; weighing benefits/burdens of medical treatment options; making medical treatment decisions. . (Kallie Miranda) Subjective/Interval History Patient seen and examined today, laboratory data, imaging, and chart reviewed. Patient remains intubated and mechanically ventilated, SBT daily as tolerated, AC/Rate 18/FiO2 35%/PEEP6. Hemodynamically stable, on intermittent hemodialysis. Persistent leukocytosis, WBC 33.7 today, afebrile, CXR 12/09 with bibasilar consolidation. BUN/creatinine slightly elevated today compared to yesterday 73/3.87 compared to 53/3.13 yesterday. Family/friend interactions Bedside conversation with patient's and daughter. (Kallie Miranda) Advance Directives Living Will: Copy in medical record Health Care Surrogate: Copy in medical record Durable Power of Para Professional: Copy in medical record (Kallie Miranda) Advance Directive Specifics Date completed: 01/04/15 . Health Care Surrogate(s): Marco Antonio Mark () Alternate HCS: Alvin Flores or Pippa Flores . Documented care wishes: Standard living will venuschantalpamela, patient documented she would not want life prolonging measures if she had a terminal condition or was in a persistent vegetative state. . (Kallie Miranda) Objective Vital Signs Date Time Temp Pulse Resp B/P (MAP) Pulse Ox O2 Delivery O2 Flow Rate FiO2 12/10/16 10:00 100 12/10/16 08:00 93 12/10/16 08:00 35 12/10/16 08:00 98.4 93 18 122/74 100 139/84 12/10/16 08:00 93 122/74 (90) 139/84 (102) 12/10/16 07:30 100 35 12/10/16 06:00 71 12/10/16 04:00 70 12/10/16 04:00 70 158/83 (108) 157/84 (108) 12/10/16 04:00 35 12/10/16 04:00 97.7 70 18 134/77 (96) 100 157/84 (108) 12/10/16 03:39 100 35 12/10/16 02:00 78 12/10/16 00:19 100 35 12/10/16 00:00 97.8 65 18 138/75 (96) 100 140/82 (101) 12/10/16 00:00 35 12/10/16 00:00 65 138/75 (96) 140/82 (101) 12/10/16 00:00 65 12/09/16 22:00 76 12/09/16 20:15 100 35 12/09/16 20:00 97.5 71 18 145/86 (105) 100 164/97 (119) 12/09/16 20:00 35 12/09/16 20:00 71 12/09/16 20:00 60 145/86 (105) 164/97 (119) 12/09/16 18:00 60 12/09/16 16:21 99 35 12/09/16 16:00 98.1 61 18 160/83 (108) 99 166/90 (115) 12/09/16 16:00 60 12/09/16 16:00 35 12/09/16 16:00 60 155/86 (109) 165/89 (114) 12/09/16 14:00 58 12/09/16 12:53 100 35 12/09/16 12:00 98.6 55 18 150/84 (106) 100 160/98 (118) 12/09/16 12:00 55 12/09/16 12:00 35 12/09/16 12:00 55 150/84 (106) 160/98 (118) Intake & Output 12/10/16 12/10/16 07:00 19:00 Intake Total 230 ml Output Total 150 ml Balance 80 ml Intake IV Total 150 ml Tube Irrigant 80 ml Output Urine Total 130 ml Drainage Total 20 ml # Bowel Movements 2 .. Physical Exam CONSTITUTIONAL/GENERAL: This is a critically ill patient, intubated and mechanically ventilated. TUBES/LINES/DRAINS: ETT, OGT, CVL LIJ, PIV x 1, Left femoral arterial line, right femoral vas cath, soft wrist restraints SKIN: No jaundice, rashes, or lesions. Ecchymoses on upper extremities. Large gelatinous clot on LUE covered with tegaderm. Skin temperature appropriate. Not diaphoretic. CARDIOVASCULAR: Regular rate and rhythm without murmurs, gallops, or rubs. Peripheral pulses symmetric. RESPIRATORY/CHEST: Symmetric, mechanically ventilated. Clear to auscultation. Breath sounds equal bilaterally. No wheezes, rales, or rhonchi. GASTROINTESTINAL: Abdomen soft, nontender, nondistended. Hypoactive bowel sounds present. GENITOURINARY: Without palpable bladder distension. Peterson catheter in place. MUSCULOSKELETAL: Extremities without clubbing, cyanosis, or edema. No mottling or clubbing. NEUROLOGICAL: Opens eyes spontaneously and to verbal stimuli. Follow simple one step commands. PSYCHIATRIC: Unable to assess secondary to clinical condition. (Kallie Miranda) Diagnostic Tests Laboratory Laboratory Tests Test 12/08/16 00:45 12/08/16 04:12 12/08/16 05:27 12/08/16 11:42 Ammonia LESS THAN 10 MCMOL/L White Blood Count 24.7 TH/MM3 (4.0-11.0) Red Blood Count 2.76 MIL/MM3 (4.00-5.30) Hemoglobin 8.4 GM/DL (11.6-15.3) Hematocrit 24.8 % (35.0-46.0) Mean Corpuscular Volume 89.9 FL (80.0-100.0) Mean Corpuscular Hemoglobin 30.3 PG (27.0-34.0) Mean Corpuscular Hemoglobin Concent 33.7 % (32.0-36.0) Red Cell Distribution Width 15.8 % (11.6-17.2) Platelet Count 69 TH/MM3 (150-450) Mean Platelet Volume 9.9 FL (7.0-11.0) Neutrophils (%) (Auto) 89.4 % (16.0-70.0) Lymphocytes (%) (Auto) 5.5 % (9.0-44.0) Monocytes (%) (Auto) 5.0 % (0.0-8.0) Eosinophils (%) (Auto) 0.0 % (0.0-4.0) Basophils (%) (Auto) 0.1 % (0.0-2.0) Neutrophils # (Auto) 22.1 TH/MM3 (1.8-7.7) Lymphocytes # (Auto) 1.4 TH/MM3 (1.0-4.8) Monocytes # (Auto) 1.2 TH/MM3 (0-0.9) Eosinophils # (Auto) 0.0 TH/MM3 (0-0.4) Basophils # (Auto) 0.0 TH/MM3 (0-0.2) CBC Comment AUTO DIFF Differential Total Cells Counted 100 Neutrophils % (Manual) 89 % (16-70) Band Neutrophils % 1 % (0-6) Lymphocytes % 7 % (9-44) Monocytes % 3 % (0-8) Neutrophils # (Manual) 22.2 TH/MM3 (1.8-7.7) Differential Comment FINAL DIFF MANUAL Platelet Estimate LOW (NORMAL) Platelet Morphology Comment ENLARGED (NORMAL) Red Cell Morphology Comment NORMAL (NORMAL) Blood Urea Nitrogen 51 MG/DL (7-18) Creatinine 3.42 MG/DL (0.50-1.00) Random Glucose 154 MG/DL (74-106) Total Protein 5.3 GM/DL (6.4-8.2) Albumin 1.9 GM/DL (3.4-5.0) Calcium Level 6.6 MG/DL (8.5-10.1) Phosphorus Level 4.6 MG/DL (2.5-4.9) Magnesium Level 1.7 MG/DL (1.5-2.5) Alkaline Phosphatase 224 U/L (45-117) Aspartate Amino Transf (AST/SGOT) 191 U/L (15-37) Alanine Aminotransferase (ALT/SGPT) 143 U/L (10-53) Total Bilirubin 3.8 MG/DL (0.2-1.0) Sodium Level 140 MEQ/L (136-145) Potassium Level 4.0 MEQ/L (3.5-5.1) Chloride Level 107 MEQ/L (98-107) Carbon Dioxide Level 20.6 MEQ/L (21.0-32.0) Anion Gap 12 MEQ/L (5-15) Estimat Glomerular Filtration Rate 13 ML/MIN (>89) Protein Corrected Calcium 7.5 MG/DL (8.5-10.1) Blood Gas Puncture Site ART LINE Blood Gas Patient Temperature 98.6 Blood Gas HCO3 19 mmol/L (22-26) Blood Gas Base Excess -5.3 mmol/L (-2-2) Blood Gas Oxygen Saturation 95 % (90-100) Arterial Blood pH 7.40 (7.380-7.420) Arterial Blood Partial Pressure CO2 31 mmHg (38-42) Arterial Blood Partial Pressure O2 110 mmHg (61-120) Arterial Blood Oxygen Content 11.7 Vol % (12.0-20.0) Arterial Blood Carboxyhemoglobin 1.4 % (0-4) Arterial Blood Methemoglobin 1.3 % (0-2) Blood Gas Hemoglobin 8.6 G/DL (12.0-16.0) Oxygen Delivery Device VENTILATOR Blood Gas Ventilator Setting PRVC/AC Blood Gas Inspired Oxygen 35 % Prothrombin Time 14.3 SEC (9.8-11.6) Prothromb Time International Ratio 1.3 RATIO Activated Partial Thromboplast Time 31.2 SEC (24.3-30.1) Fibrinogen 165 mg/dL (227-377) Test 12/09/16 05:02 12/09/16 06:15 12/09/16 18:00 12/10/16 05:17 White Blood Count 27.7 TH/MM3 (4.0-11.0) 33.7 TH/MM3 (4.0-11.0) Red Blood Count 2.61 MIL/MM3 (4.00-5.30) 2.78 MIL/MM3 (4.00-5.30) Hemoglobin 7.9 GM/DL (11.6-15.3) 8.3 GM/DL (11.6-15.3) Hematocrit 23.3 % (35.0-46.0) 25.0 % (35.0-46.0) Mean Corpuscular Volume 89.3 FL (80.0-100.0) 89.9 FL (80.0-100.0) Mean Corpuscular Hemoglobin 30.2 PG (27.0-34.0) 29.8 PG (27.0-34.0) Mean Corpuscular Hemoglobin Concent 33.8 % (32.0-36.0) 33.2 % (32.0-36.0) Red Cell Distribution Width 15.3 % (11.6-17.2) 15.7 % (11.6-17.2) Platelet Count 52 TH/MM3 (150-450) 51 TH/MM3 (150-450) Mean Platelet Volume 9.7 FL (7.0-11.0) 10.9 FL (7.0-11.0) Neutrophils (%) (Auto) 88.5 % (16.0-70.0) Lymphocytes (%) (Auto) 6.3 % (9.0-44.0) Monocytes (%) (Auto) 5.1 % (0.0-8.0) Eosinophils (%) (Auto) 0.0 % (0.0-4.0) Basophils (%) (Auto) 0.1 % (0.0-2.0) Neutrophils # (Auto) 24.5 TH/MM3 (1.8-7.7) Lymphocytes # (Auto) 1.8 TH/MM3 (1.0-4.8) Monocytes # (Auto) 1.4 TH/MM3 (0-0.9) Eosinophils # (Auto) 0.0 TH/MM3 (0-0.4) Basophils # (Auto) 0.0 TH/MM3 (0-0.2) CBC Comment AUTO DIFF AUTO DIFF Differential Total Cells Counted 100 100 Neutrophils % (Manual) 87 % (16-70) 92 % (16-70) Band Neutrophils % 2 % (0-6) 4 % (0-6) Lymphocytes % 3 % (9-44) 2 % (9-44) Monocytes % 7 % (0-8) 2 % (0-8) Neutrophils # (Manual) 24.9 TH/MM3 (1.8-7.7) 32.4 TH/MM3 (1.8-7.7) Myelocytes 1 % (0-0) Differential Comment FINAL DIFF MANUAL FINAL DIFF MANUAL Platelet Estimate LOW (NORMAL) LOW (NORMAL) Platelet Morphology Comment NORMAL (NORMAL) ENLARGED (NORMAL) Keratocytes 1+ (NORMAL) OCC (NORMAL) Prothrombin Time 14.0 SEC (9.8-11.6) 14.7 SEC (9.8-11.6) Prothromb Time International Ratio 1.3 RATIO 1.3 RATIO Activated Partial Thromboplast Time 29.4 SEC (24.3-30.1) 29.4 SEC (24.3-30.1) Fibrinogen 203 mg/dL (227-377) 168 mg/dL (227-377) Blood Urea Nitrogen 53 MG/DL (7-18) 73 MG/DL (7-18) Creatinine 3.13 MG/DL (0.50-1.00) 3.87 MG/DL (0.50-1.00) Random Glucose 182 MG/DL (74-106) 175 MG/DL (74-106) Total Protein 5.7 GM/DL (6.4-8.2) 5.2 GM/DL (6.4-8.2) Albumin 2.3 GM/DL (3.4-5.0) 2.0 GM/DL (3.4-5.0) Calcium Level 7.9 MG/DL (8.5-10.1) 8.2 MG/DL (8.5-10.1) Phosphorus Level 4.4 MG/DL (2.5-4.9) Magnesium Level 1.9 MG/DL (1.5-2.5) Alkaline Phosphatase 247 U/L (45-117) 249 U/L (45-117) Aspartate Amino Transf (AST/SGOT) 91 U/L (15-37) 58 U/L (15-37) Alanine Aminotransferase (ALT/SGPT) 95 U/L (10-53) 71 U/L (10-53) Total Bilirubin 3.8 MG/DL (0.2-1.0) 3.6 MG/DL (0.2-1.0) Sodium Level 139 MEQ/L (136-145) 141 MEQ/L (136-145) Potassium Level 3.7 MEQ/L (3.5-5.1) 4.1 MEQ/L (3.5-5.1) Chloride Level 104 MEQ/L (98-107) 102 MEQ/L (98-107) Carbon Dioxide Level 22.8 MEQ/L (21.0-32.0) 23.6 MEQ/L (21.0-32.0) Anion Gap 12 MEQ/L (5-15) 15 MEQ/L (5-15) Estimat Glomerular Filtration Rate 15 ML/MIN (>89) 11 ML/MIN (>89) Ammonia LESS THAN 10 MCMOL/L Blood Gas Puncture Site ART LINE Blood Gas Patient Temperature 98.6 Blood Gas HCO3 22 mmol/L (22-26) Blood Gas Base Excess -1.1 mmol/L (-2-2) Blood Gas Oxygen Saturation 95 % (90-100) Arterial Blood pH 7.48 (7.380-7.420) Arterial Blood Partial Pressure CO2 30 mmHg (38-42) Arterial Blood Partial Pressure O2 101 mmHg (61-120) Arterial Blood Oxygen Content 13.6 Vol % (12.0-20.0) Arterial Blood Carboxyhemoglobin 1.6 % (0-4) Arterial Blood Methemoglobin 1.2 % (0-2) Blood Gas Hemoglobin 10.1 G/DL (12.0-16.0) Oxygen Delivery Device VENTILATOR Blood Gas Ventilator Setting [facility] Blood Gas Inspired Oxygen 35 % Urine Color YELLOW (YELLW/STRAW) Urine Turbidity HAZY (CLEAR) Urine pH 6.5 (5.0-8.5) Urine Specific [place] 1.013 (1.002-1.035) Urine Protein 100 mg/dL (NEG-TRACE) Urine Glucose (UA) 150 mg/dL (NEG) Urine Ketones NEG mg/dL (NEG) Urine Occult Blood MOD (NEG) Urine Nitrite NEG (NEG) Urine Bilirubin NEG (NEG) Urine Urobilinogen LESS THAN 2.0 MG/DL (LESS Urine Leukocyte Esterase NEG (NEG) Urine RBC 14 /hpf (0-3) Urine WBC 28 /hpf (0-5) Urine Squamous Epithelial Cells 4 /hpf (0-5) Urine Transitional Epithelial Cells 5 /hpf (NONE) Urine Amorphous Sediment RARE Urine Bacteria RARE /hpf (NONE) Microscopic Urinalysis Comment CATH-CULTURE IND Nucleated Red Blood Cells 2 /100 WBC (0-0) (Ruben,Kallie SOLIS) Result Diagram: 12/10/1651612/10/16516 Microbiology Microbiology Date/Time Source Procedure Growth Status 12/09/16 15:13 Blood Peripheral Aerobic Blood Culture - Preliminary NO GROWTH IN 1 DAY Resulted 12/09/16 15:13 Blood Peripheral Anaerobic Blood Culture - Preliminary NO GROWTH IN 1 DAY Resulted 12/09/16 15:08 Blood Peripheral Aerobic Blood Culture - Preliminary NO GROWTH IN 1 DAY Resulted 12/09/16 15:08 Blood Peripheral Anaerobic Blood Culture - Preliminary NO GROWTH IN 1 DAY Resulted 12/09/16 15:50 Sputum Endotracheal Gram Stain - Final Resulted 12/09/16 15:50 Sputum Endotracheal Sputum Culture Pending Resulted 12/09/16 18:00 Urine Catheterized Urine Urine Culture - Preliminary NO GROWTH IN 24 HOURS. Resulted Imaging Last 72 hours Impressions Chest X-Ray 12/09/16 0600 Signed Impressions: Service Date/Time: Friday, December 09, 2016 04:06 - CONCLUSION: 1. Interval placement of nasogastric tube. 2. Bibasal opacities remain. Josef Luther MD Abdomen X-Ray 12/09/16 0000 Signed Impressions: Service Date/Time: Friday, December 09, 2016 12:19 - CONCLUSION: OG tube tip in the distal stomach. Fermin Wills MD Abdomen CT 12/08/16 0000 Signed Impressions: Service Date/Time: Thursday, December 08, 2016 17:52 - CONCLUSION: 1. Cholecystostomy tube in good position. Nain Sharma Jr., MD ([facility]) Assessment and Plan Disease Oriented Problem List: (1) Sepsis (2) Metabolic acidosis (3) Acute cholecystitis (4) Respiratory failure Symptom Scale: (1) Dyspnea (2) Debility (3) Pain Pertinent Non-Medical Issues Psychosocial:Patient is originally from [place], [place], she has been to her for 56 years and has two children. 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 She retired in her early 60s when she began spending half of the year between [place] and [place]. Spiritual: Legal: None known. Ethical issues impacting care:None known. Important Contacts Marco Antonio Flores () [phone] . Prognosis Patient has experienced a physical and functional decline over the past two years. She has suffered from chronic back pain due to scoliosis and has recently drank daily heavily to alleviate the pain. The patient was admitted for sepsis followed by respiratory distress requiring intubation, she has continued to decline and has now progressed into multiorgan failure. She is at an increased risk for complications/setbacks due to her advanced age, multiple comorbidities, and current clinical status. . Code Status: Alternative Code Plan * Legal decision maker: Patient does not have the capacity to make her own health care decisions. It is unclear at this time if she will regain the capacity to make her own health care decisions. Documented HCS is patient's Marco Antonio Flores [phone], alternate HCS are Alvin Flores or Pippa Flores. * CODE STATUS:Alternative code, intubation only. * GOALS: Aggressive short of CPR. No change in goals. * Discussed code status again today with patient's Marco Antonio, he again confirmed the decision for an alternative code. Patient's daughter and verbalized struggling with the situation, they stated they are questioning whether or not the patient would want to continue to move forward with such aggressive measures. No change in goals. * Waste Treatment Operator consult placed. * SYMPTOM MANAGEMENT: * --pain: Patient at ongoing risk for pain secondary to intubation, mechanical ventilation, and bedbound status. On fentanyl gtt. No recommendations at this time, further recommendations pending hospital course. * --dyspnea: Patient is intubated and mechanically ventilated, duonebs scheduled q 6hr and q 2hr PRN ordered. No recommendations at this time. * --debility: Secondary to current clinical status, mechanical ventilation, bedbound status. PT/OT following and working with the patient. No recommendations at this time. * Palliative care will continue to follow during hospital course as condition evolves, to assist patient/family/decision-maker with understanding of medical conditions, weighing benefit/burdens of treatment options, for clarification of goals of treatment. Additionally will assist with symptoms of palliative concern. (Kallie Miranda) Attestation To help prompt me to consider important information that might be impacting today's encounter and assessment, information from prior notes written by myself or my colleagues may have been "brought forward" into today's note. My signature on this note, however, is an attestation that I personally performed the exam, history, and/or decision-making noted today, and, unless otherwise indicated, the interactions with patient, family, and staff as well as the review of records all occurred today. I also attest that the listed assessment and stated plan reflect my best clinical judgment today based on the combination of historical information, prior notes, and today's exam/ interactions. When time spent is documented, it refers only to time spent today by the signer, or if indicated, combined time spent today by collaborating physician/nurse practitioner. (Kallie Miranda) Collaborating MD Comments Chart reviewed. Case discussed with palliative care SUPERVISOR PAINT DEPARTMENT. I have reviewed above palliative care SUPERVISOR PAINT DEPARTMENT note, and I concur. . (Vijay Miller MD) Kallie Miranda Dec 10, 2016 12:16 Vijay Miller MD Dec 13, 2016 15:51
--- NOTE | 2016-12-10 12:20 | HHI.PR ---
cc: Josef Birmingham MD Subjective Subjective Notes Sedated Objective Vitals/I&O Vital Signs Date Time Temp Pulse Resp B/P (MAP) Pulse Ox O2 Delivery O2 Flow Rate FiO2 12/10/16 10:00 100 12/10/16 08:00 35 12/10/16 08:00 98.4 18 122/74 100 139/84 Labs Laboratory Tests Test 12/09/16 18:00 12/10/16 05:17 Urine Color YELLOW Urine Turbidity HAZY Urine pH 6.5 Urine Specific [place] 1.013 Urine Protein 100 Urine Glucose (UA) 150 Urine Ketones NEG Urine Occult Blood MOD Urine Nitrite NEG Urine Bilirubin NEG Urine Urobilinogen LESS THAN 2.0 Urine Leukocyte Esterase NEG Urine RBC 14 Urine WBC 28 Urine Squamous Epithelial Cells 4 Urine Transitional Epithelial Cells 5 Urine Amorphous Sediment RARE Urine Bacteria RARE Microscopic Urinalysis Comment CATH-CULTURE IND White Blood Count 33.7 Red Blood Count 2.78 Hemoglobin 8.3 Hematocrit 25.0 Mean Corpuscular Volume 89.9 Mean Corpuscular Hemoglobin 29.8 Mean Corpuscular Hemoglobin Concent 33.2 Red Cell Distribution Width 15.7 Platelet Count 51 Mean Platelet Volume 10.9 CBC Comment AUTO DIFF Differential Total Cells Counted 100 Neutrophils % (Manual) 92 Band Neutrophils % 4 Lymphocytes % 2 Monocytes % 2 Neutrophils # (Manual) 32.4 Nucleated Red Blood Cells 2 Differential Comment FINAL DIFF MANUAL Platelet Estimate LOW Platelet Morphology Comment ENLARGED Keratocytes OCC Prothrombin Time 14.7 Prothromb Time International Ratio 1.3 Activated Partial Thromboplast Time 29.4 Fibrinogen 168 Blood Urea Nitrogen 73 Creatinine 3.87 Random Glucose 175 Total Protein 5.2 Albumin 2.0 Calcium Level 8.2 Alkaline Phosphatase 249 Aspartate Amino Transf (AST/SGOT) 58 Alanine Aminotransferase (ALT/SGPT) 71 Total Bilirubin 3.6 Sodium Level 141 Potassium Level 4.1 Chloride Level 102 Carbon Dioxide Level 23.6 Anion Gap 15 Estimat Glomerular Filtration Rate 11 Date/Time Source Procedure Growth Status 12/09/16 15:13 Blood Peripheral Aerobic Blood Culture - Preliminary NO GROWTH IN 1 DAY Resulted 12/09/16 15:13 Blood Peripheral Anaerobic Blood Culture - Preliminary NO GROWTH IN 1 DAY Resulted 12/03/16 14:55 Fluid Bile Fluid Gram Stain - Final Complete 12/03/16 14:55 Body Fluid Culture - Final Enterococcus Faecalis Complete 12/09/16 15:50 Sputum Endotracheal Gram Stain - Final Resulted 12/09/16 15:50 Sputum Endotracheal Sputum Culture Pending Resulted 12/09/16 18:00 Urine Catheterized Urine Urine Culture - Preliminary NO GROWTH IN 24 HOURS. Resulted Radiology Last 48 hours Impressions Percutaneous Cholangiogram 12/03/16 0000 Signed Impressions: Service Date/Time: Saturday, December 03, 2016 14:31 - CONCLUSION: Uncomplicated percutaneous cholecystostomy as above. Nain Sharma Jr., MD Chest X-Ray 12/02/16 2305 Signed Impressions: Service Date/Time: Friday, December 02, 2016 23:12 - CONCLUSION: 1. Satisfactory position of endotracheal tube as above. 2. Uncomplicated line placement. No evidence of pneumothorax. Royal Messer MD Chest X-Ray 12/02/16 1217 Signed Impressions: Service Date/Time: Friday, December 02, 2016 12:56 - CONCLUSION: Cardiomegaly. Left lower lobe atelectasis versus pneumonia. Royal Messer MD Liver Ultrasound 12/02/16 0000 Signed Impressions: Service Date/Time: Friday, December 02, 2016 19:12 - CONCLUSION: 1. Cholelithiasis with wall thickening and trace pericholecystic fluid. 2. No evidence of biliary duct distention. 3. No other significant abnormality. Jak Hughes MD Abdomen/Pelvis CT 12/02/16 0000 Signed Impressions: Service Date/Time: Friday, December 02, 2016 15:09 - CONCLUSION: 1. No evidence of acute abdominal or pelvic process. No masses are identified. 2. Cholelithiasis 3. Left lower lobe atelectasis versus pneumonia. 4. A large hiatal hernia is present. 5. Diverticulosis without evidence of diverticulitis. Royal Messer MD Abdomen: Non-distended Narrative Exam Cholecystostomy tube bile is brown and thin. A/P Assessment and Plan Assessment: Liver function tests continue to improve. Although WBC's are increasing and pt still thrombocytopenic, it is felt that she is still recovering from Gram negative sepsis with multiorgan dysfunction/ failure. Plan: Surgery not indicated at this time. Will continue to follow. Josef Birmingham MD Dec 10, 2016 12:20
--- NOTE | 2016-12-10 13:10 | PD.ONC.PN ---
Subjective Subjective Remarks Afebrile overnight. patient intubated sedated. Has skin tear, left forearm which had some bleeding overnight, but now has ceased. Per nurse, no bleeding elsewhere. Objective Data Date Time Temp Pulse Resp B/P (MAP) Pulse Ox O2 Delivery O2 Flow Rate FiO2 12/10/16 13:03 100 35 12/10/16 10:00 100 12/10/16 08:00 93 12/10/16 08:00 35 12/10/16 08:00 98.4 93 18 122/74 100 139/84 12/10/16 08:00 93 122/74 (90) 139/84 (102) 12/10/16 07:30 100 35 12/10/16 06:00 71 12/10/16 04:00 70 12/10/16 04:00 70 158/83 (108) 157/84 (108) 12/10/16 04:00 35 12/10/16 04:00 97.7 70 18 134/77 (96) 100 157/84 (108) 12/10/16 03:39 100 35 12/10/16 02:00 78 12/10/16 00:19 100 35 12/10/16 00:00 97.8 65 18 138/75 (96) 100 140/82 (101) 12/10/16 00:00 35 12/10/16 00:00 65 138/75 (96) 140/82 (101) 12/10/16 00:00 65 12/09/16 22:00 76 12/09/16 20:15 100 35 12/09/16 20:00 97.5 71 18 145/86 (105) 100 164/97 (119) 12/09/16 20:00 35 12/09/16 20:00 71 12/09/16 20:00 60 145/86 (105) 164/97 (119) 12/09/16 18:00 60 12/09/16 16:21 99 35 12/09/16 16:00 98.1 61 18 160/83 (108) 99 166/90 (115) 12/09/16 16:00 60 12/09/16 16:00 35 12/09/16 16:00 60 155/86 (109) 165/89 (114) 12/09/16 14:00 58 10/12/10/16 12/10/16 07:00 15:00 23:00 Intake Total 180 ml Output Total 150 ml Balance 30 ml Result Diagram: 12/10/1651612/10/16516 Laboratory Results Laboratory Tests Test 12/09/16 18:00 12/10/16 05:17 Urine Color YELLOW Urine Turbidity HAZY Urine pH 6.5 Urine Specific [place] 1.013 Urine Protein 100 mg/dL Urine Glucose (UA) 150 mg/dL Urine Ketones NEG mg/dL Urine Occult Blood MOD Urine Nitrite NEG Urine Bilirubin NEG Urine Urobilinogen LESS THAN 2.0 MG/DL Urine Leukocyte Esterase NEG Urine RBC 14 /hpf Urine WBC 28 /hpf Urine Squamous Epithelial Cells 4 /hpf Urine Transitional Epithelial Cells 5 /hpf Urine Amorphous Sediment RARE Urine Bacteria RARE /hpf Microscopic Urinalysis Comment CATH-CULTURE IND White Blood Count 33.7 TH/MM3 Red Blood Count 2.78 MIL/MM3 Hemoglobin 8.3 GM/DL Hematocrit 25.0 % Mean Corpuscular Volume 89.9 FL Mean Corpuscular Hemoglobin 29.8 PG Mean Corpuscular Hemoglobin Concent 33.2 % Red Cell Distribution Width 15.7 % Platelet Count 51 TH/MM3 Mean Platelet Volume 10.9 FL CBC Comment AUTO DIFF Differential Total Cells Counted 100 Neutrophils % (Manual) 92 % Band Neutrophils % 4 % Lymphocytes % 2 % Monocytes % 2 % Neutrophils # (Manual) 32.4 TH/MM3 Nucleated Red Blood Cells 2 /100 WBC Differential Comment FINAL DIFF MANUAL Platelet Estimate LOW Platelet Morphology Comment ENLARGED Keratocytes OCC Prothrombin Time 14.7 SEC Prothromb Time International Ratio 1.3 RATIO Activated Partial Thromboplast Time 29.4 SEC Fibrinogen 168 mg/dL Blood Urea Nitrogen 73 MG/DL Creatinine 3.87 MG/DL Random Glucose 175 MG/DL Total Protein 5.2 GM/DL Albumin 2.0 GM/DL Calcium Level 8.2 MG/DL Alkaline Phosphatase 249 U/L Aspartate Amino Transf (AST/SGOT) 58 U/L Alanine Aminotransferase (ALT/SGPT) 71 U/L Total Bilirubin 3.6 MG/DL Sodium Level 141 MEQ/L Potassium Level 4.1 MEQ/L Chloride Level 102 MEQ/L Carbon Dioxide Level 23.6 MEQ/L Anion Gap 15 MEQ/L Estimat Glomerular Filtration Rate 11 ML/MIN Culture Results Microbiology Date/Time Source Procedure Growth Status 12/09/16 15:13 Blood Peripheral Aerobic Blood Culture - Preliminary NO GROWTH IN 1 DAY Resulted 12/09/16 15:13 Blood Peripheral Anaerobic Blood Culture - Preliminary NO GROWTH IN 1 DAY Resulted 12/09/16 15:08 Blood Peripheral Aerobic Blood Culture - Preliminary NO GROWTH IN 1 DAY Resulted 12/09/16 15:08 Blood Peripheral Anaerobic Blood Culture - Preliminary NO GROWTH IN 1 DAY Resulted 12/09/16 15:50 Sputum Endotracheal Gram Stain - Final Resulted 12/09/16 15:50 Sputum Endotracheal Sputum Culture Pending Resulted 12/09/16 18:00 Urine Catheterized Urine Urine Culture - Preliminary NO GROWTH IN 24 HOURS. Resulted Administered Medications Medications (Trade) Dose Ordered Sig/Dhruv Route PRN Reason Start Time Stop Time Status Last Admin Dose Admin Sodium Chloride (NS Flush) 2 ml UNSCH PRN IV FLUSH FLUSH AFTER USING IV ACCESS 12/02/16 16:15 12/06/16 20:52 Sodium Chloride (NS Flush) 2 ml BID IV FLUSH 12/02/16 21:00 12/10/16 09:18 Famotidine (Pepcid Inj) 20 mg DAILY IV PUSH 12/02/16 21:00 12/10/16 09:15 Heparin Sodium (Porcine) (Heparin Inj) 5,000 units Q12H SQ 12/02/16 17:00 Future Hold 12/04/16 04:28 Miscellaneous Information 1 [id number] XX 12/02/16 16:15 12/02/16 16:15 Chlorhexidine Gluconate (Chlorhexidine 2% Cloth) Taper DAILY@04 TOP 12/03/16 04:00 11/29/17 03:59 12/07/16 04:00 Senna/Docusate Sodium (Keely-Colace) 1 tab BID PO 12/02/16 21:00 12/10/16 09:18 Insulin Human Regular (NovoLIN R SUPPLEMENTAL SCALE) 1 ACHS SLIDING SCALE SQ 12/02/16 17:00 12/10/16 12:00 Lorazepam (Ativan Inj) 1 mg Q4H PRN IV PUSH ANXIETY 12/02/16 16:45 12/09/16 10:20 Chlorhexidine Gluconate (Peridex 0.12% Liq) 15 ml BID@08,20 MT 12/03/16 08:00 12/10/16 09:19 Fentanyl Citrate 250 ml @ 5 mls/hr TITRATE PRN IV SEDATION 12/02/16 22:15 12/09/16 22:42 Norepinephrine Bitartrate 4 mg/ Sodium Chloride 250 ml @ 7.5 mls/hr TITRATE PRN IV Blood pressure management 12/02/16 22:15 12/06/16 04:34 Sodium Chloride (NS Flush) DAILY IV FLUSH 12/03/16 09:00 12/10/16 09:18 Sodium Chloride (NS Flush) UNSCH PRN IV FLUSH SEE PROTOCOL 12/02/16 23:15 12/06/16 20:52 Hydrocortisone Sodium Succinate (SoluCORTEF INJ) 100 mg Q8H IV PUSH 12/03/16 09:00 12/10/16 09:16 Artificial Tears (Tears Naturale Opth Soln) 1 drop Q8HR PRN EACH EYE DRY EYE 12/03/16 08:15 12/04/16 17:22 Phenylephrine HCl 80 mg/Dextrose 500 ml @ 15 mls/hr TITRATE PRN IV Blood pressure Management 12/03/16 17:15 12/06/16 04:35 Sodium Chloride 1,000 ml @ 0 mls/hr UNSCH PRN OTHER SEE LABEL COMMENTS 12/05/16 17:30 12/07/16 02:14 Sodium Chloride 1,000 ml @ 0 mls/hr Q0M PRN OTHER For Prime & Rinse Back 12/07/16 10:56 12/08/16 12:21 Albumin Human 100 ml @ 60 mls/hr UNSCH PRN IV WITH DIALYSIS 12/07/16 11:00 12/08/16 12:38 Gentamicin Sulfate (Gentamicin (Dialysis) Inj) 20 mg UNSCH PRN OTHER WITH DIALYSIS 12/07/16 11:00 12/08/16 12:19 Epoetin Ronald (Epogen Inj) 10,000 units UNSCH PRN IV PUSH WITH DIALYSIS 12/07/16 11:00 12/08/16 12:19 Piperacillin Sod/ Tazobactam Sod 50 ml @ 100 mls/hr Q6H IV 12/07/16 17:00 12/10/16 12:07 Levofloxacin/ Dextrose 100 ml @ 100 mls/hr Q48H IV 12/07/16 16:00 12/09/16 15:42 Objective Remarks GENERAL: Intubated, sedated female supine in bed. SKIN: Warm and dry. left forearm skin tear--no active bleeding. HEAD: Normocephalic. EYES: No injection or drainage. NECK: Supple, trachea midline. CARDIOVASCULAR: Regular rate and rhythm RESPIRATORY: anterior dennis clear. on mechanical ventilation. GASTROINTESTINAL: Abdomen mildly distended. EXTREMITIES: No cyanosis NEUROLOGICAL: awake, intubated. Assessment/Plan Problem List: (1) Pancytopenia ICD Codes: D61.818 - Other pancytopenia Plan: 12/10: continue to monitor CBC, coags. no blood products needed at present. --due to bone marrow suppression from sepsis. --expect her pancytopenia to get worse in the next several days if sepsis is not under control. --monitor her CBC closely and provide blood product support as needed. (2) Sepsis ICD Codes: A41.9 - Sepsis, unspecified organism Status: Acute (3) Acute kidney injury ICD Codes: N17.9 - Acute kidney failure, unspecified Status: Acute Plan: --receiving HD Assessment Pt has a large blood filled blister left upper arm. Per RN the oozing has been less today. It appears as thought this is localized. Would not recommend cryoprecipitate unless fibrinogen less than 100. Coagulopathy d/t sepsis but this is overall improving. She is currently being evaluated by general surgery for laparoscopic cholecystectomy and will defer these decisions to Dr [place]. Attending Statement The exam, history, and the medical decision-making described in the above note were completed with the assistance of the mid-level provider. I reviewed and agree with the findings presented. I attest that I had a [id number] encounter with the patient on the same day, and personally performed and documented my assessment and findings in the medical record. awake but does not follow commands on vent Leucocytosis with left shift due to sepsis Low plat with no bleeding. HG >8 d/w RN Problem Qualifiers (1) Sepsis: Qualified Codes: A41.9 - Sepsis, unspecified organism Tatum Proctor Dec 10, 2016 13:10 Lana Justice MD Dec 10, 2016 17:04
[2016-12-10] MEDS: hydrALAZINE HCL 50 MG TAB PO SCH ×2 (14:43→21:14)
[2016-12-11] VITALS (18 sets, daily range): BP systolic 108–139; BP diastolic 59–79; PULSE 66–149; RESP 18–26; TEMP 97.4–98.7; O2SAT 96–100
[2016-12-11] MEDS: HYDROCORTISONE SOD SUCCINATE 100 MG VIAL IV PUSH SCH ×3 (01:00→16:33)
[2016-12-11] MEDS: CHLORHEXIDINE GLUCONATE 2 % 1 PACK (2 CLOTHS) TOP SCH (03:55)
[2016-12-11] MEDS: fentaNYL DRIP 250 ML IV PRN (03:55)
[2016-12-11] MEDS: PIPERACIL-TAZO 2.25 GM PREMIX 50 ML IV SCH ×4 (03:56→23:00)
[2016-12-11 04:31] LABS: HEMATOCRIT 25.8 % (35.0-46.0); HEMOGLOBIN 8.4 GM/DL (11.6-15.3); MEAN CELL VOLUME 90.2 FL (80.0-100.0); MEAN CORPUSCULAR HEMOGLOBIN 29.5 PG (27.0-34.0); MEAN CORPUSCULAR HGB CONC 32.7 % (32.0-36.0); PLATELET COUNT 58 TH/MM3 (150-450); RED BLOOD COUNT 2.86 MIL/MM3 (4.00-5.30)
[2016-12-11 04:54] LABS: INTERNATIONAL NORMALIZED RATIO 1.3 RATIO; PROTHROMBIN TIME - PATIENT 14.4 SEC (9.8-11.6)
[2016-12-11 05:14] LABS: ALBUMIN 2.1 GM/DL (3.4-5.0); ALKALINE PHOSPHATASE 299 U/L (45-117); ALT (GPT) 65 U/L (10-53); AST (GOT) 44 U/L (15-37); BICARBONATE 22.3 MEQ/L (21.0-32.0); BLOOD UREA NITROGEN 90 MG/DL (7-18); CALCIUM 7.9 MG/DL (8.5-10.1); CHLORIDE 101 MEQ/L (98-107); CREATININE 4.58 MG/DL (0.50-1.00); GLOMERULAR FILTRATION RATE 9 ML/MIN (>89); GLUCOSE,RANDOM 190 MG/DL (74-106); SODIUM (NA) 138 MEQ/L (136-145); TOTAL BILIRUBIN ADULT 3.7 MG/DL (0.2-1.0); TOTAL PROTEIN 5.6 GM/DL (6.4-8.2)
[2016-12-11 05:25] LABS: BANDS 1 % (0-6); LYMPHOCYTES 1 % (9-44); METAMYELOCYTES 2 % (0-1); MONOCYTES 2 % (0-8); NEUTROPHIL # MANUAL DIFF 35.9 TH/MM3 (1.8-7.7); POLYS (SEG NEUTROPHILS) 94 % (16-70)
[2016-12-11] MEDS: hydrALAZINE HCL 50 MG TAB PO SCH ×2 (06:14→14:00)
[2016-12-11] MEDS: CHLORHEXIDINE 0.12% (ORAL KIT) 15 ML CUP MT SCH ×2 (08:00→20:00)
[2016-12-11] MEDS: INSULIN NovoLIN REGULAR SUPPLEMENTAL SCALE SQ SCH ×4 (08:00→21:00)
[2016-12-11] MEDS: GENTAMICIN SULFATE (DIALYSIS USE ONLY) 20 MG/2 ML VIAL OTHER PRN (08:47)
[2016-12-11] MEDS: EPOETIN ALFA 10,000 UNITS/ML VIAL IV PUSH PRN (08:47)
[2016-12-11] MEDS: ALBUMIN 25% INJ 100 ML IV PRN ×2 (08:47→09:05)
[2016-12-11] MEDS: DOCUSATE SODIUM 50 MG/SENNA 8.6 MG TAB PO SCH ×2 (09:00→21:00)
[2016-12-11] MEDS: SODIUM CHLORIDE 0.9% FLUSH 10 ML FLUSH IV FLUSH SCH ×3 (09:00→21:00)
[2016-12-11] MEDS: FAMOTIDINE 20 MG/2 ML VIAL IV PUSH SCH (09:00)
--- NOTE | 2016-12-11 10:00 | HHI.CCPN ---
Subjective Remarks/Hospital Course This is a 71-year-old female presents to the ED via EMS for evaluation of fever , shortness breath, vomiting, diarrhea, abdominal pain She reports that she's been short of breath for the past 2 weeks, but has progressed in the past 2 days. Patient has been seeing a canal lock tender chief operator for her shortness of breath, is not on home oxygen. The patient reported she has a history of smoking. She is also complaining of abdominal pain that started 2 days ago with vomiting and diarrhea. Patient has severe tenderness to mild palpation. She has history of IN. She received 500 mL normal saline IV bolus, and Zofran 4 mg IV. Critical care medicine was consulted. Subjective: 12/03: Tmax 100.9. Last evening the patient was noted to have significant respiratory decompensation with requirement for emergent intubation. The patient subsequently became hemodynamically unstable requiring vasopressor support. Patient is lightly sedated, and continues to have abdominal pain, and hypoactive bowel sounds, GI has been consulted. HIDA scan previously scheduled for this morning, after discussion with Dr Goodrich , plan for cholecystostomy tube placement by IR. Ultrasound liver showed no biliary duct distention but notable thickened gallbladder wall. 12/04: Tmax 100.4. Patient continues with severe metabolic acidosis, sodium bicarbonate infusion increased to 150 cc/hour yesterday afternoon. Antibiotics were expanded yesterday with addition of Micafungin and Diflucan. Blood cultures resulted with Enterobacter, Klebsiella pneumoniae and Escherichia coli. ID consulted recommendations appreciated. Patient is status post placement of percutaneous cholecystostomy tube . Patient now icteric, but LFTs are trending down. Records obtained from primary care physician with cardiology reports from earlier in the year, patient with noted pulmonary hypertension and NYHA class III. In-hospital echo pending. Patient continues on 3 pressors to maintain blood pressure. 12/05: Patient has been weaned off of vasopressor continues on to agents Gurinder- Synephrine, norepinephrine at low doses. Patient noted to still be thrombocytopenic platelet count decreased today HIT panel pending. INR remains elevated no active signs of bleeding liver function enzymes remain elevated. No urine output over the last 12 hours nephrology following discussion with for possible hemodialysis, will await nephrology recommendations. Sodium bicarbonate infusion discontinued. Patient remains alert GCS 11 T. 12/06: Afebrile. The patient continues on CRRT initiated last night, tolerating it well patient continues only on phenylephrine infusion to maintain MAP. The patient received 2 units of FFP per hematology/oncology recommendations. 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 12/07: Afebrile. Vasopressors discontinued at 4 AM, CRRT completed, patient will be transitioned to IHD 2 times a week. Patient was noted to be severely thrombocytopenic platelet count 32 ,plan for transfusions of platelets, fibrinogen level decreasing. Bile specimen noted to result Enterococcus faecalis, contacted Dr. Portillo general surgery updated him discussion regarding elective versus semielective laparoscopic cholecystectomy ,informed that no surgical intervention indicated at this time. Cholecystostomy tube continues to drain. 12/08: Afebrile. The patient has been transitioned to IHD 2 times a week. 3 L removal of fluid today. The patient remains hemodynamically stable off of all vasopressors greater than 24 hours at this time. A chin continues to have persistent leukocytosis with elevation in WBC count and downward trend up fibrinogen level . Cholecystostomy tube low output, CT scan abdomen pending. General surgery reconsulted to review surgical options for patient. 12/09 Patient is sedated with Fentanyl and intubated. s/p HD yesterday with removal 3L. NPO for possible OR today. 12/10 No events overnight. Sedated with Fentanyl and intubated. Afebrile. 12/11 Patient remains intubated and sedated with Fentanyl. Tolerated CPAP trials for 4 hrs yesterday. For HD today. Afebrile however her WBC increased 37 from 33. Moves spontaneously but does not follow commands. Objective Vital Signs Date Time Temp Pulse Resp B/P (MAP) Pulse Ox O2 Delivery O2 Flow Rate FiO2 12/11/16 08:49 96 35 12/11/16 06:00 88 12/11/16 04:00 98.0 20 139/79 (99) Intake and Output 12/11/16 12/11/16 12/12/16 08:00 16:00 00:00 Intake Total 291 ml 100 ml Output Total 175 ml Balance 116 ml 100 ml Result Diagram: 12/11/16 0345 12/11/16 0345 Other Results Laboratory Tests Test 12/11/16 03:45 White Blood Count 37.0 TH/MM3 Red Blood Count 2.86 MIL/MM3 Hemoglobin 8.4 GM/DL Hematocrit 25.8 % Mean Corpuscular Volume 90.2 FL Mean Corpuscular Hemoglobin 29.5 PG Mean Corpuscular Hemoglobin Concent 32.7 % Red Cell Distribution Width 16.0 % Platelet Count 58 TH/MM3 Mean Platelet Volume 11.0 FL CBC Comment AUTO DIFF Differential Total Cells Counted 100 Neutrophils % (Manual) 94 % Band Neutrophils % 1 % Lymphocytes % 1 % Monocytes % 2 % Neutrophils # (Manual) 35.9 TH/MM3 Metamyelocytes 2 % Differential Comment FINAL DIFF MANUAL Platelet Estimate LOW Platelet Morphology Comment NORMAL Prothrombin Time 14.4 SEC Prothromb Time International Ratio 1.3 RATIO Activated Partial Thromboplast Time 27.8 SEC Fibrinogen 137 mg/dL Blood Urea Nitrogen 90 MG/DL Creatinine 4.58 MG/DL Random Glucose 190 MG/DL Total Protein 5.6 GM/DL Albumin 2.1 GM/DL Calcium Level 7.9 MG/DL Alkaline Phosphatase 299 U/L Aspartate Amino Transf (AST/SGOT) 44 U/L Alanine Aminotransferase (ALT/SGPT) 65 U/L Total Bilirubin 3.7 MG/DL Sodium Level 138 MEQ/L Potassium Level 4.1 MEQ/L Chloride Level 101 MEQ/L Carbon Dioxide Level 22.3 MEQ/L Anion Gap 15 MEQ/L Estimat Glomerular Filtration Rate 9 ML/MIN Imaging Last Impressions Chest X-Ray 12/09/16 06 Signed Impressions: Service Date/Time: Friday, December 09, 2016 04:06 - CONCLUSION: 1. Interval placement of nasogastric tube. 2. Bibasal opacities remain. Josef Luther MD Abdomen X-Ray 12/09/16 0000 Signed Impressions: Service Date/Time: Friday, December 09, 2016 12:19 - CONCLUSION: OG tube tip in the distal stomach. Fermin Wills MD Abdomen CT 12/08/16 0000 Signed Impressions: Service Date/Time: Thursday, December 08, 2016 17:52 - CONCLUSION: 1. Cholecystostomy tube in good position. Nain Sharma Jr., MD Abdomen/Pelvis CT 12/04/16 0600 Signed Impressions: Service Date/Time: Sunday, December 04, 2016 09:35 - CONCLUSION: 1. Interval placement of a cholecystostomy tube. 2. Bibasilar consolidation likely related to atelectasis. This is unchanged. 3. Tip of the NG tube in the hiatal hernia. 4. Small volume ascites. 5. No acute abnormality observed. Nain Sharma Jr., MD Percutaneous Cholangiogram 12/03/16 0000 Signed Impressions: Service Date/Time: Saturday, December 03, 2016 14:31 - CONCLUSION: Uncomplicated percutaneous cholecystostomy as above. Nain Sharma Jr., MD Liver Ultrasound 12/02/16 0000 Signed Impressions: Service Date/Time: Friday, December 02, 2016 19:12 - CONCLUSION: 1. Cholelithiasis with wall thickening and trace pericholecystic fluid. 2. No evidence of biliary duct distention. 3. No other significant abnormality. Jak Hughes MD Objective Remarks Infusions: Versed 2 mg/hour Fentanyl 50 mcgs BP 121/59 Pulse 83 O2 saturation 95% on FiO2 of 35% GENERAL: Critically ill appearing appropriately stated age female intubated and mild sedation, and tenuous eye opening SKIN: Warm and dry. HEAD: Atraumatic. Normocephalic. EYES: Pupils equal and round. Mild scleral icterus, decreasing. No injection or drainage. Extraocular movements intact ENT: No nasal bleeding or discharge. Mucous membranes pink and moist. Orotracheally intubated NECK: Trachea midline. No JVD. CARDIOVASCULAR: Normal rate, regular rhythm. Telemetry sinus rhythm RESPIRATORY: No accessory muscle use. Clear to auscultation. Breath sounds equal bilaterally. GASTROINTESTINAL: Abdomen soft,nondistended, tender to palpation. No guarding. MUSCULOSKELETAL: Extremities without clubbing, cyanosis, or edema. No obvious deformities. Right groin Vas-Cath site soft no erythema/drainage NEUROLOGICAL: RASS -2. No gross focal/sensory deficits. Not following commands today Procedures 12/02-abdominal ultrasound 12/03- percutaneous cholecystostomy tube placement 12/05-patient of CRRT, completion 12/07 12/08-initiation of IHD Date of Insertion: Dec 02, 2016 Line: Central Venous Catheter Side: Left Location: Femoral A/P Assessment and Plan ASSESSMENT Abdominal pain Hiatal hernia Diverticulitis Cholelithiasis with cholecystitis Transaminitis Nausea Hyperlipidemia Hypertension History of IN Coronary artery disease-S/P angioplasty 2 History of systolic CHF Acute hypoxemic respiratory failure Probable community-acquired pneumonia Hypokalemia Alcohol use disorder Elevated creatinine Pancytopenia Transaminitis Acute renal failure Multisystem organ failure secondary to septic shock Acute decompensated systolic heart failure Coagulopathy Bandemia Persistent leukocytosis Critical illness polyneuropathy PLAN Neurologic: Neurochecks per ICU protocol Fentanyl infusion for ventilator synchrony- Will check CT brain Monitor for signs of alcohol withdrawal Daily sedation vacation-patient remains GCS 11 T Seizure precautions s/p folate and MVI. Thiamine 100mg daily Respiratory: Continue with vent support keep sat >92% Bronchodilators 36 hours scheduled, every 2 hours PRN 12/02-intubation 7.5 ETT Ventilator bundle. SBT daily as arti. Will check CT chest. Cardiovascular: On Hydralazine 50mg Q8-Monitor HR and BP keep MAP>65mmHg Initial troponin 0.07->0.11->0.49. 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 NYHA classification III-per previous records Renal Monitor renal function, I/O's, avoid nephrotoxins. s/p HD 12/08 with 3L fluid removal. For HD today Nephrology following-Dr. Carlos, 12/05 initiation of CRRT 12/08 initiation of IHD-schedule per nephrology -- Strict I/Os FEN/GI: Keep NPO for now. Will repeat CT abd/pelvis for worsening leukocytosis GI and surgery are following. Discussed with Dr. [place] yesterday. 12/02 CT abdomen pelvis-diverticulosis without diverticulitis, large hiatal hernia, cholelithiasis, no acute process ultrasound abdomen-no biliary duct dilatation, cholelithiasis with cholecystitis trace pericholecystic fluid 12/03- percutaneous cholecystostomy drain placement percutaneous cholecystostomy draining (Bile- Enterococcus faecalis)- monitor drainage 12/[address] Pathak bile fluid-Enterococcus faecalis-no surgical intervention at this time, plan for tentative semi-elective versus elective cholecystectomy in the future 12/08 general surgery reconsulted to review surgical options-vasopressor pressor support is not required, patient remains with elevated leukocytosis, will follow up recommendations Hold statin in the setting of elevated LFTs 12/07 CRRT discontinued patient will begin IHD 2 times a week Heme/ID: ID is following-Dr. Ramos, abx per ID (Zosyn, Levaquin) 12/09 Pancultured- BC, sputum cx, Urine-NGTD 12/03 blood cultures-Enterobacter, Klebsiella pneumoniae, Escherichia coli 12/03 Legionella, influenza , pneumococcal antigen- negative 12/03 sputum culture-E coli 12/03: Bile fluid-Enterococcus faecalis Hematology oncology following INR 1.8-no active signs of bleeding 12/05 HIT panel-negative 12/06 2 units of FFP per hematology recommendations 12/07 transfuse 2 units of platelets 12/08-fibrinogen level Downward trend 392->213-> 165 today- transfuse 1 unit of cryoprecipitate Monitor CBC Endocrine: Glucose monitoring per ICU protocol -- SSI MSK: PT evaluation and treat Consult hand surgery for wound left forearm. Prophylaxis: GI Prophylaxis Famotidine DVT Prophylaxis -- SCDs Heparin 5000 SQ BID (on Hold) in the setting of thrombocytopenia Lines: PIV's x 2. Central line left IJ, Art line left femoral, right femoral Vas-Cath Palliative care is following CCT 30 mins Kassandra Goodwin MD Dec 11, 2016 10:00
--- NOTE | 2016-12-11 12:32 | HHI.NPPN ---
Subjective History of Present Illness 71 year old with septic shock, ARF Additional Remarks Patient remain intubated, sedated and clinically same. Objective Data Data 12/11/16 12/12/16 19:00 07:00 Intake Total 100 ml Output Total 3000 ml Balance -2900 ml Intake IV Total 100 ml Hemodialysis 3000 ml Vital Signs Date Time Temp Pulse Resp B/P (MAP) Pulse Ox O2 Delivery O2 Flow Rate FiO2 12/11/16 11:56 97 35 12/11/16 10:00 90 12/11/16 08:49 96 35 12/11/16 08:00 93 12/11/16 08:00 97.7 93 21 110/61 (77) 97 12/11/16 08:00 35 12/11/16 06:00 88 12/11/16 04:13 100 35 12/11/16 04:00 100 12/11/16 04:00 98.0 100 20 139/79 (99) 100 12/11/16 04:00 35 12/11/16 02:00 107 12/11/16 00:00 98.2 94 18 116/60 (78) 100 12/11/16 00:00 94 12/11/16 00:00 35 12/10/16 23:45 100 35 12/10/16 22:00 92 12/10/16 21:19 100 35 12/10/16 20:00 95 12/10/16 20:00 35 12/10/16 20:00 97.9 95 18 103/58 (73) 100 12/10/16 18:16 35 12/10/16 18:00 97 12/10/16 16:00 98.8 101 16 116/57 (76) 100 Arterial Line 12/10/16 16:00 101 12/10/16 16:00 35 12/10/16 15:59 94 35 12/10/16 14:39 35 12/10/16 14:00 97 12/10/16 13:03 100 35 -: 12/11/16 0345 12/11/16 034 Physical Exam Neck Neck Exam: Neck Supple Pulmonary Resp Exam: Clear Bilaterally Cardiology CV Exam: Regular Gastrointestinal/Abdomen GI Exam: Soft, Bowel Sounds Present, Non-Distended Integumentary Skin Exam: Clear Extremeties Extremities Exam: Moderate Edema, Pitting Edema, Dependent Edema Assessment/Plan Problem List: (1) Acute kidney injury ICD Codes: N17.9 - Acute kidney failure, unspecified Status: Acute Plan: Patient has septic shock and acute tubular necrosis making small amount of urine, check urine sodium and osmolality and creatinine Continue supportive care Continue to monitor avoid Nephrotoxins. Patient now started on intermittent HD, done earlier 3 L off WBC high platelets 58 k on Vent d/w family (2) Acute cholecystitis ICD Codes: K81.0 - Acute cholecystitis Plan: Status post cholecystostomy (3) Sepsis ICD Codes: A41.9 - Sepsis, unspecified organism Status: Acute Plan: On antibiotics Problem Qualifiers (1) Sepsis: Qualified Codes: A41.9 - Sepsis, unspecified organism Myrtle Carlos MD Dec 11, 2016 12:32
--- NOTE | 2016-12-11 13:11 | PD.ONC.PN ---
Subjective Subjective Remarks Afebrile overnight. Remains intubated, sedated. Objective Data Date Time Temp Pulse Resp B/P (MAP) Pulse Ox O2 Delivery O2 Flow Rate FiO2 12/11/16 11:56 97 35 12/11/16 10:00 90 12/11/16 08:49 96 35 12/11/16 08:00 93 12/11/16 08:00 97.7 93 21 110/61 (77) 97 12/11/16 08:00 35 12/11/16 06:00 88 12/11/16 04:13 100 35 12/11/16 04:00 100 12/11/16 04:00 98.0 100 20 139/79 (99) 100 12/11/16 04:00 35 12/11/16 02:00 107 12/11/16 00:00 98.2 94 18 116/60 (78) 100 12/11/16 00:00 94 12/11/16 00:00 35 12/10/16 23:45 100 35 12/10/16 22:00 92 12/10/16 21:19 100 35 12/10/16 20:00 95 12/10/16 20:00 35 12/10/16 20:00 97.9 95 18 103/58 (73) 100 12/10/16 18:16 35 12/10/16 18:00 97 12/10/16 16:00 98.8 101 16 116/57 (76) 100 Arterial Line 12/10/16 16:00 101 12/10/16 16:00 35 12/10/16 15:59 94 35 12/10/16 14:39 35 12/10/16 14:00 97 12/11/16 12/11/16 12/11/16 07:00 15:00 23:00 Intake Total 341 ml 150 ml Output Total 175 ml 3000 ml Balance 166 ml -2850 ml Result Diagram: 12/11/16 0345 12/11/16 0345 Laboratory Results Laboratory Tests Test 12/11/16 03:45 White Blood Count 37.0 TH/MM3 Red Blood Count 2.86 MIL/MM3 Hemoglobin 8.4 GM/DL Hematocrit 25.8 % Mean Corpuscular Volume 90.2 FL Mean Corpuscular Hemoglobin 29.5 PG Mean Corpuscular Hemoglobin Concent 32.7 % Red Cell Distribution Width 16.0 % Platelet Count 58 TH/MM3 Mean Platelet Volume 11.0 FL CBC Comment AUTO DIFF Differential Total Cells Counted 100 Neutrophils % (Manual) 94 % Band Neutrophils % 1 % Lymphocytes % 1 % Monocytes % 2 % Neutrophils # (Manual) 35.9 TH/MM3 Metamyelocytes 2 % Differential Comment FINAL DIFF MANUAL Platelet Estimate LOW Platelet Morphology Comment NORMAL Prothrombin Time 14.4 SEC Prothromb Time International Ratio 1.3 RATIO Activated Partial Thromboplast Time 27.8 SEC Fibrinogen 137 mg/dL Blood Urea Nitrogen 90 MG/DL Creatinine 4.58 MG/DL Random Glucose 190 MG/DL Total Protein 5.6 GM/DL Albumin 2.1 GM/DL Calcium Level 7.9 MG/DL Alkaline Phosphatase 299 U/L Aspartate Amino Transf (AST/SGOT) 44 U/L Alanine Aminotransferase (ALT/SGPT) 65 U/L Total Bilirubin 3.7 MG/DL Sodium Level 138 MEQ/L Potassium Level 4.1 MEQ/L Chloride Level 101 MEQ/L Carbon Dioxide Level 22.3 MEQ/L Anion Gap 15 MEQ/L Estimat Glomerular Filtration Rate 9 ML/MIN Culture Results Microbiology Date/Time Source Procedure Growth Status 12/09/16 15:13 Blood Peripheral Aerobic Blood Culture - Preliminary NO GROWTH IN 2 DAYS Resulted 12/09/16 15:13 Blood Peripheral Anaerobic Blood Culture - Preliminary NO GROWTH IN 2 DAYS Resulted 12/09/16 15:08 Blood Peripheral Aerobic Blood Culture - Preliminary NO GROWTH IN 2 DAYS Resulted 12/09/16 15:08 Blood Peripheral Anaerobic Blood Culture - Preliminary NO GROWTH IN 2 DAYS Resulted 12/09/16 15:50 Sputum Endotracheal Gram Stain - Final Resulted 12/09/16 15:50 Sputum Culture - Preliminary Gram Negative Primitivo Resulted 12/09/16 18:00 Urine Catheterized Urine Urine Culture - Preliminary NO GROWTH IN 24 HOURS. Resulted Administered Medications Medications (Trade) Dose Ordered Sig/Dhruv Route PRN Reason Start Time Stop Time Status Last Admin Dose Admin Sodium Chloride (NS Flush) 2 ml UNSCH PRN IV FLUSH FLUSH AFTER USING IV ACCESS 12/02/16 16:15 12/06/16 20:52 Sodium Chloride (NS Flush) 2 ml BID IV FLUSH 12/02/16 21:00 12/11/16 09:00 Famotidine (Pepcid Inj) 20 mg DAILY IV PUSH 12/02/16 21:00 12/11/16 09:00 Heparin Sodium (Porcine) (Heparin Inj) 5,000 units Q12H SQ 12/02/16 17:00 Future Hold 12/04/16 04:28 Miscellaneous Information 1 [id number] XX 12/02/16 16:15 12/02/16 16:15 Chlorhexidine Gluconate (Chlorhexidine 2% Cloth) Taper DAILY@04 TOP 12/03/16 04:00 11/29/17 03:59 12/07/16 04:00 Senna/Docusate Sodium (Keely-Colace) 1 tab BID PO 12/02/16 21:00 12/11/16 09:00 Insulin Human Regular (NovoLIN R SUPPLEMENTAL SCALE) 1 ACHS SLIDING SCALE SQ 12/02/16 17:00 12/11/16 11:58 Lorazepam (Ativan Inj) 1 mg Q4H PRN IV PUSH ANXIETY 12/02/16 16:45 12/09/16 10:20 Chlorhexidine Gluconate (Peridex 0.12% Liq) 15 ml BID@08,20 MT 12/03/16 08:00 12/11/16 08:00 Fentanyl Citrate 250 ml @ 5 mls/hr TITRATE PRN IV SEDATION 12/02/16 22:15 12/11/16 03:55 Norepinephrine Bitartrate 4 mg/ Sodium Chloride 250 ml @ 7.5 mls/hr TITRATE PRN IV Blood pressure management 12/02/16 22:15 12/06/16 04:34 Sodium Chloride (NS Flush) DAILY IV FLUSH 12/03/16 09:00 12/11/16 09:00 Sodium Chloride (NS Flush) UNSCH PRN IV FLUSH SEE PROTOCOL 12/02/16 23:15 12/06/16 20:52 Hydrocortisone Sodium Succinate (SoluCORTEF INJ) 100 mg Q8H IV PUSH 12/03/16 09:00 12/11/16 09:00 Artificial Tears (Tears Naturale Opth Soln) 1 drop Q8HR PRN EACH EYE DRY EYE 12/03/16 08:15 12/04/16 17:22 Phenylephrine HCl 80 mg/Dextrose 500 ml @ 15 mls/hr TITRATE PRN IV Blood pressure Management 12/03/16 17:15 12/06/16 04:35 Sodium Chloride 1,000 ml @ 0 mls/hr UNSCH PRN OTHER SEE LABEL COMMENTS 12/05/16 17:30 12/07/16 02:14 Sodium Chloride 1,000 ml @ 0 mls/hr Q0M PRN OTHER For Prime & Rinse Back 12/07/16 10:56 12/08/16 12:21 Albumin Human 100 ml @ 60 mls/hr UNSCH PRN IV WITH DIALYSIS 12/07/16 11:00 12/11/16 09:05 Gentamicin Sulfate (Gentamicin (Dialysis) Inj) 20 mg UNSCH PRN OTHER WITH DIALYSIS 12/07/16 11:00 12/11/16 08:47 Epoetin Ronald (Epogen Inj) 10,000 units UNSCH PRN IV PUSH WITH DIALYSIS 12/07/16 11:00 12/11/16 08:47 Piperacillin Sod/ Tazobactam Sod 50 ml @ 100 mls/hr Q6H IV 12/07/16 17:00 12/11/16 11:00 Levofloxacin/ Dextrose 100 ml @ 100 mls/hr Q48H IV 12/07/16 16:00 12/09/16 15:42 Hydralazine HCl (Apresoline) 50 mg Q8HR PO 12/10/16 14:00 12/11/16 06:14 Objective Remarks GENERAL: Intubated, sedated female lying supine in hospital bed. NO family at bedside during exam. SKIN: Warm and dry. left forearm with bandages in place, no bleeding. small amount of clear yellow weeping/drainage. HEAD: Normocephalic. EYES: No injection or drainage. NECK: Supple, trachea midline. CARDIOVASCULAR: Regular rate and rhythm RESPIRATORY: anterior dennis clear. on mechanical ventilation. GASTROINTESTINAL: Abdomen mildly distended. EXTREMITIES: No cyanosis NEUROLOGICAL: intubated, sleeping Assessment/Plan Problem List: (1) Pancytopenia ICD Codes: D61.818 - Other pancytopenia Plan: 12/11: monitor CBC, coags. will transfuse if bleeding. --due to bone marrow suppression from sepsis. --expect her pancytopenia to get worse in the next several days if sepsis is not under control. --monitor her CBC closely and provide blood product support as needed. (2) Sepsis ICD Codes: A41.9 - Sepsis, unspecified organism Status: Acute (3) Acute kidney injury ICD Codes: N17.9 - Acute kidney failure, unspecified Status: Acute Plan: --receiving HD Assessment Pt has a large blood filled blister left upper arm. Per RN the oozing has been less today. It appears as thought this is localized. Would not recommend cryoprecipitate unless fibrinogen less than 100. Coagulopathy d/t sepsis but this is overall improving. She is currently being evaluated by general surgery for laparoscopic cholecystectomy and will defer these decisions to Dr Birmingham. Attending Statement Patient remains on the ventilator and sedated Leucocytosis due to sepsis Thrombocytopenia due to sepsis No bleeding Monitor CBC The exam, history, and the medical decision-making described in the above note were completed with the assistance of the mid-level provider. I reviewed and agree with the findings presented. I attest that I had a [id number] encounter with the patient on the same day, and personally performed and documented my assessment and findings in the medical record. Problem Qualifiers (1) Sepsis: Qualified Codes: A41.9 - Sepsis, unspecified organism Tatum Proctor Dec 11, 2016 13:11 Lana Justice MD Dec 12, 2016 06:35
--- NOTE | 2016-12-11 13:51 | HHI.HCPN ---
Reason for visit a. To assist with evaluation and management of symptoms including: dyspnea, pain, and debility b. To assist medical decision maker(s) with: better understanding of current medical conditions; weighing benefits/burdens of medical treatment options; making medical treatment decisions. . (Kallie Miranda) Subjective/Interval History Patient seen and examined today. Patient remains intubated and sedated, she tolerated SBTs for 4 hours yesterday. Open eyes spontaneously, blinks to threat , does not follow commands. Persistent leukocytosis, WBCs 37 today, BUN/creatinine elevated today compared to yesterday, 90/4.58, hemodialysis planned for today. Family/friend interactions Bedside meeting with patient's . . (Kallie Miranda) Advance Directives Living Will: Copy in medical record Health Care Surrogate: Copy in medical record Durable Power of Complex Human Resources Manager: Copy in medical record (Kallie Miranda) Advance Directive Specifics Date completed: 01/04/15 . Health Care Surrogate(s): Marco Antonio Flores () Alternate HCS: Alvin Flores or Pippa Flores . Documented care wishes: Standard living will susie, patient documented she would not want life prolonging measures if she had a terminal condition or was in a persistent vegetative state. . (Kallie Miranda) Objective Vital Signs Date Time Temp Pulse Resp B/P (MAP) Pulse Ox O2 Delivery O2 Flow Rate FiO2 12/11/16 11:56 97 35 12/11/16 10:00 90 12/11/16 08:49 96 35 12/11/16 08:00 93 12/11/16 08:00 97.7 93 21 110/61 (77) 97 12/11/16 08:00 35 12/11/16 06:00 88 12/11/16 04:13 100 35 12/11/16 04:00 100 12/11/16 04:00 98.0 100 20 139/79 (99) 100 12/11/16 04:00 35 12/11/16 02:00 107 12/11/16 00:00 98.2 94 18 116/60 (78) 100 12/11/16 00:00 94 12/11/16 00:00 35 12/10/16 23:45 100 35 12/10/16 22:00 92 12/10/16 21:19 100 35 12/10/16 20:00 95 12/10/16 20:00 35 12/10/16 20:00 97.9 95 18 103/58 (73) 100 12/10/16 18:16 35 12/10/16 18:00 97 12/10/16 16:00 98.8 101 16 116/57 (76) 100 Arterial Line 12/10/16 16:00 101 12/10/16 16:00 35 12/10/16 15:59 94 35 12/10/16 14:39 35 12/10/16 14:00 97 Intake & Output 12/11/16 12/11/16 07:00 19:00 Intake Total 341 ml 150 ml Output Total 175 ml 3000 ml Balance 166 ml -2850 ml Intake IV Total 156 ml 150 ml Tube Feeding 125 ml Other 60 ml Output Urine Total 150 ml Drainage Total 25 ml Hemodialysis 3000 ml # Bowel Movements 0 Physical Exam CONSTITUTIONAL/GENERAL: This is a critically ill patient, intubated and mechanically ventilated. TUBES/LINES/DRAINS: ETT, OGT, CVL LIJ, PIV x 1, Left femoral arterial line, right femoral vas cath, soft wrist restraints SKIN: No jaundice, rashes, or lesions. Ecchymoses on upper extremities. Skin temperature appropriate. Not diaphoretic. CARDIOVASCULAR: Regular rate and rhythm without murmurs, gallops, or rubs. Peripheral pulses symmetric. RESPIRATORY/CHEST: Symmetric, mechanically ventilated. Clear to auscultation. Breath sounds equal bilaterally. No wheezes, rales, or rhonchi. GASTROINTESTINAL: Abdomen soft, nontender, nondistended. Hypoactive bowel sounds present. GENITOURINARY: Without palpable bladder distension. Peterson catheter in place. MUSCULOSKELETAL: Extremities without clubbing, cyanosis, or edema. No mottling or clubbing. NEUROLOGICAL: Opens eyes spontaneously and to verbal stimuli. Blinks to threat, does not track. Does not follow commands. PSYCHIATRIC: Unable to assess secondary to clinical condition. (Kallie Miranda) Diagnostic Tests Laboratory Laboratory Tests Test 12/09/16 05:02 12/09/16 06:15 12/09/16 18:00 12/10/16 05:17 White Blood Count 27.7 TH/MM3 (4.0-11.0) 33.7 TH/MM3 (4.0-11.0) Red Blood Count 2.61 MIL/MM3 (4.00-5.30) 2.78 MIL/MM3 (4.00-5.30) Hemoglobin 7.9 GM/DL (11.6-15.3) 8.3 GM/DL (11.6-15.3) Hematocrit 23.3 % (35.0-46.0) 25.0 % (35.0-46.0) Mean Corpuscular Volume 89.3 FL (80.0-100.0) 89.9 FL (80.0-100.0) Mean Corpuscular Hemoglobin 30.2 PG (27.0-34.0) 29.8 PG (27.0-34.0) Mean Corpuscular Hemoglobin Concent 33.8 % (32.0-36.0) 33.2 % (32.0-36.0) Red Cell Distribution Width 15.3 % (11.6-17.2) 15.7 % (11.6-17.2) Platelet Count 52 TH/MM3 (150-450) 51 TH/MM3 (150-450) Mean Platelet Volume 9.7 FL (7.0-11.0) 10.9 FL (7.0-11.0) Neutrophils (%) (Auto) 88.5 % (16.0-70.0) Lymphocytes (%) (Auto) 6.3 % (9.0-44.0) Monocytes (%) (Auto) 5.1 % (0.0-8.0) Eosinophils (%) (Auto) 0.0 % (0.0-4.0) Basophils (%) (Auto) 0.1 % (0.0-2.0) Neutrophils # (Auto) 24.5 TH/MM3 (1.8-7.7) Lymphocytes # (Auto) 1.8 TH/MM3 (1.0-4.8) Monocytes # (Auto) 1.4 TH/MM3 (0-0.9) Eosinophils # (Auto) 0.0 TH/MM3 (0-0.4) Basophils # (Auto) 0.0 TH/MM3 (0-0.2) CBC Comment AUTO DIFF AUTO DIFF Differential Total Cells Counted 100 100 Neutrophils % (Manual) 87 % (16-70) 92 % (16-70) Band Neutrophils % 2 % (0-6) 4 % (0-6) Lymphocytes % 3 % (9-44) 2 % (9-44) Monocytes % 7 % (0-8) 2 % (0-8) Neutrophils # (Manual) 24.9 TH/MM3 (1.8-7.7) 32.4 TH/MM3 (1.8-7.7) Myelocytes 1 % (0-0) Differential Comment FINAL DIFF MANUAL FINAL DIFF MANUAL Platelet Estimate LOW (NORMAL) LOW (NORMAL) Platelet Morphology Comment NORMAL (NORMAL) ENLARGED (NORMAL) Keratocytes 1+ (NORMAL) OCC (NORMAL) Prothrombin Time 14.0 SEC (9.8-11.6) 14.7 SEC (9.8-11.6) Prothromb Time International Ratio 1.3 RATIO 1.3 RATIO Activated Partial Thromboplast Time 29.4 SEC (24.3-30.1) 29.4 SEC (24.3-30.1) Fibrinogen 203 mg/dL (227-377) 168 mg/dL (227-377) Blood Urea Nitrogen 53 MG/DL (7-18) 73 MG/DL (7-18) Creatinine 3.13 MG/DL (0.50-1.00) 3.87 MG/DL (0.50-1.00) Random Glucose 182 MG/DL (74-106) 175 MG/DL (74-106) Total Protein 5.7 GM/DL (6.4-8.2) 5.2 GM/DL (6.4-8.2) Albumin 2.3 GM/DL (3.4-5.0) 2.0 GM/DL (3.4-5.0) Calcium Level 7.9 MG/DL (8.5-10.1) 8.2 MG/DL (8.5-10.1) Phosphorus Level 4.4 MG/DL (2.5-4.9) Magnesium Level 1.9 MG/DL (1.5-2.5) Alkaline Phosphatase 247 U/L (45-117) 249 U/L (45-117) Aspartate Amino Transf (AST/SGOT) 91 U/L (15-37) 58 U/L (15-37) Alanine Aminotransferase (ALT/SGPT) 95 U/L (10-53) 71 U/L (10-53) Total Bilirubin 3.8 MG/DL (0.2-1.0) 3.6 MG/DL (0.2-1.0) Sodium Level 139 MEQ/L (136-145) 141 MEQ/L (136-145) Potassium Level 3.7 MEQ/L (3.5-5.1) 4.1 MEQ/L (3.5-5.1) Chloride Level 104 MEQ/L (98-107) 102 MEQ/L (98-107) Carbon Dioxide Level 22.8 MEQ/L (21.0-32.0) 23.6 MEQ/L (21.0-32.0) Anion Gap 12 MEQ/L (5-15) 15 MEQ/L (5-15) Estimat Glomerular Filtration Rate 15 ML/MIN (>89) 11 ML/MIN (>89) Ammonia LESS THAN 10 MCMOL/L Blood Gas Puncture Site ART LINE Blood Gas Patient Temperature 98.6 Blood Gas HCO3 22 mmol/L (22-26) Blood Gas Base Excess -1.1 mmol/L (-2-2) Blood Gas Oxygen Saturation 95 % (90-100) Arterial Blood pH 7.48 (7.380-7.420) Arterial Blood Partial Pressure CO2 30 mmHg (38-42) Arterial Blood Partial Pressure O2 101 mmHg (61-120) Arterial Blood Oxygen Content 13.6 Vol % (12.0-20.0) Arterial Blood Carboxyhemoglobin 1.6 % (0-4) Arterial Blood Methemoglobin 1.2 % (0-2) Blood Gas Hemoglobin 10.1 G/DL (12.0-16.0) Oxygen Delivery Device VENTILATOR Blood Gas Ventilator Setting [facility] Blood Gas Inspired Oxygen 35 % Urine Color YELLOW (YELLW/STRAW) Urine Turbidity HAZY (CLEAR) Urine pH 6.5 (5.0-8.5) Urine Specific [place] 1.013 (1.002-1.035) Urine Protein 100 mg/dL (NEG-TRACE) Urine Glucose (UA) 150 mg/dL (NEG) Urine Ketones NEG mg/dL (NEG) Urine Occult Blood MOD (NEG) Urine Nitrite NEG (NEG) Urine Bilirubin NEG (NEG) Urine Urobilinogen LESS THAN 2.0 MG/DL (LESS Urine Leukocyte Esterase NEG (NEG) Urine RBC 14 /hpf (0-3) Urine WBC 28 /hpf (0-5) Urine Squamous Epithelial Cells 4 /hpf (0-5) Urine Transitional Epithelial Cells 5 /hpf (NONE) Urine Amorphous Sediment RARE Urine Bacteria RARE /hpf (NONE) Microscopic Urinalysis Comment CATH-CULTURE IND Nucleated Red Blood Cells 2 /100 WBC (0-0) Test 12/11/16 03:45 White Blood Count 37.0 TH/MM3 (4.0-11.0) Red Blood Count 2.86 MIL/MM3 (4.00-5.30) Hemoglobin 8.4 GM/DL (11.6-15.3) Hematocrit 25.8 % (35.0-46.0) Mean Corpuscular Volume 90.2 FL (80.0-100.0) Mean Corpuscular Hemoglobin 29.5 PG (27.0-34.0) Mean Corpuscular Hemoglobin Concent 32.7 % (32.0-36.0) Red Cell Distribution Width 16.0 % (11.6-17.2) Platelet Count 58 TH/MM3 (150-450) Mean Platelet Volume 11.0 FL (7.0-11.0) CBC Comment AUTO DIFF Differential Total Cells Counted 100 Neutrophils % (Manual) 94 % (16-70) Band Neutrophils % 1 % (0-6) Lymphocytes % 1 % (9-44) Monocytes % 2 % (0-8) Neutrophils # (Manual) 35.9 TH/MM3 (1.8-7.7) Metamyelocytes 2 % (0-1) Differential Comment FINAL DIFF MANUAL Platelet Estimate LOW (NORMAL) Platelet Morphology Comment NORMAL (NORMAL) Prothrombin Time 14.4 SEC (9.8-11.6) Prothromb Time International Ratio 1.3 RATIO Activated Partial Thromboplast Time 27.8 SEC (24.3-30.1) Fibrinogen 137 mg/dL (227-377) Blood Urea Nitrogen 90 MG/DL (7-18) Creatinine 4.58 MG/DL (0.50-1.00) Random Glucose 190 MG/DL (74-106) Total Protein 5.6 GM/DL (6.4-8.2) Albumin 2.1 GM/DL (3.4-5.0) Calcium Level 7.9 MG/DL (8.5-10.1) Alkaline Phosphatase 299 U/L (45-117) Aspartate Amino Transf (AST/SGOT) 44 U/L (15-37) Alanine Aminotransferase (ALT/SGPT) 65 U/L (10-53) Total Bilirubin 3.7 MG/DL (0.2-1.0) Sodium Level 138 MEQ/L (136-145) Potassium Level 4.1 MEQ/L (3.5-5.1) Chloride Level 101 MEQ/L (98-107) Carbon Dioxide Level 22.3 MEQ/L (21.0-32.0) Anion Gap 15 MEQ/L (5-15) Estimat Glomerular Filtration Rate 9 ML/MIN (>89) (Kallie Miranda) Result Diagram: 12/11/16 0345 12/11/16 0345 Microbiology Microbiology Date/Time Source Procedure Growth Status 12/09/16 15:13 Blood Peripheral Aerobic Blood Culture - Preliminary NO GROWTH IN 2 DAYS Resulted 12/09/16 15:13 Blood Peripheral Anaerobic Blood Culture - Preliminary NO GROWTH IN 2 DAYS Resulted 12/09/16 15:08 Blood Peripheral Aerobic Blood Culture - Preliminary NO GROWTH IN 2 DAYS Resulted 12/09/16 15:08 Blood Peripheral Anaerobic Blood Culture - Preliminary NO GROWTH IN 2 DAYS Resulted 12/09/16 15:50 Sputum Endotracheal Gram Stain - Final Resulted 12/09/16 15:50 Sputum Culture - Preliminary Gram Negative Primitivo Resulted 12/09/16 18:00 Urine Catheterized Urine Urine Culture - Preliminary NO GROWTH IN 24 HOURS. Resulted Imaging Last 72 hours Impressions Chest X-Ray 12/09/16 0600 Signed Impressions: Service Date/Time: Friday, December 09, 2016 04:06 - CONCLUSION: 1. Interval placement of nasogastric tube. 2. Bibasal opacities remain. Josef Luther MD Abdomen X-Ray 12/09/16 0000 Signed Impressions: Service Date/Time: Friday, December 09, 2016 12:19 - CONCLUSION: OG tube tip in the distal stomach. Fermin Wills MD (Kallie Miranda) Assessment and Plan Disease Oriented Problem List: (1) Sepsis (2) Metabolic acidosis (3) Acute cholecystitis (4) Respiratory failure Symptom Scale: (1) Dyspnea (2) Debility (3) Pain Pertinent Non-Medical Issues Psychosocial:Patient is originally from [place], [place], she has been to her for 56 years and has two children. 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 She retired in her early 60s when she began spending half of the year between [place] and [place]. Spiritual: Legal: None known. Ethical issues impacting care:None known. Important Contacts Marco Antonio Flores () [phone] . Prognosis Patient has experienced a physical and functional decline over the past two years. She has suffered from chronic back pain due to scoliosis and has recently drank daily heavily to alleviate the pain. The patient was admitted for sepsis followed by respiratory distress requiring intubation, she has continued to decline and has now progressed into multiorgan failure. She is at an increased risk for complications/setbacks due to her advanced age, multiple comorbidities, and current clinical status. . Code Status: Alternative Code Plan * Legal decision maker: Patient does not have the capacity to make her own health care decisions. It is unclear at this time if she will regain the capacity to make her own health care decisions. Documented HCS is patient's Marco Antonio Flores [phone], alternate HCS are Alvin Flores or Pippadalila Flores. * CODE STATUS:Alternative code, intubation only. * GOALS: Aggressive short of CPR. No change in goals. Patient's updated on current clinical status. * SYMPTOM MANAGEMENT: * --pain: Patient at ongoing risk for pain secondary to intubation, mechanical ventilation, and bedbound status. On fentanyl gtt. No recommendations at this time, further recommendations pending hospital course. * --dyspnea: Patient is intubated and mechanically ventilated, duonebs scheduled q 6hr and q 2hr PRN ordered. No recommendations at this time. * --debility: Secondary to current clinical status, mechanical ventilation, bedbound status. PT/OT following and working with the patient. No recommendations at this time. * Palliative care will continue to follow during hospital course as condition evolves, to assist patient/family/decision-maker with understanding of medical conditions, weighing benefit/burdens of treatment options, for clarification of goals of treatment. Additionally will assist with symptoms of palliative concern. (Kallie Miranda) Collaborating MD Comments Chart reviewed. Case discussed with palliative care BUS AND SYS INTEGRATION SENIOR MANAGER. Above note reviewed and I concur. . (Vijay Miller MD) RubenKallie Lira [facility] Dec 11, 2016 13:51 Vijay Miller MD Dec 13, 2016 17:17
[2016-12-11] MEDS ORDERED: DILTIAZEM HCL 25 MG/5 ML VIAL ONE (13:53)
[2016-12-11] MEDS ORDERED: METOPROLOL TARTRATE 5 MG/5 ML VIAL ONE (14:04)
[2016-12-11] MEDS ORDERED: DILTIAZEM HCL 25 MG/5 ML VIAL IV PUSH ONE (15:00)
[2016-12-11] MEDS ORDERED: METOPROLOL TARTRATE 5 MG/5 ML VIAL IV PUSH ONE (15:00)
[2016-12-11] MEDS ORDERED: DILTIAZEM 125 MG/NS 100 ML IV PRN ×2 (15:00)
[2016-12-11] MEDS: LEVOFLOXACIN 500 MG PREMIX INJ 100 ML IV SCH (16:00)
--- NOTE | 2016-12-11 16:38 | HHI.GIFU ---
Subjective Remarks No significant change. WBC is still rising, now 37,000. LFTs are slightly improved. Ammonia is 10. Respiratory failure. Renal failure. Objective Vitals I&O Vital Signs Date Time Temp Pulse Resp B/P (MAP) Pulse Ox O2 Delivery O2 Flow Rate FiO2 12/11/16 16:24 97 35 12/11/16 15:01 154 129/75 12/11/16 14:00 149 12/11/16 12:00 99 12/11/16 12:00 35 12/11/16 12:00 97.4 99 22 127/62 (83) 97 12/11/16 11:56 97 35 12/11/16 10:00 90 12/11/16 08:49 96 35 12/11/16 08:00 93 12/11/16 08:00 97.7 93 21 110/61 (77) 97 12/11/16 08:00 35 12/11/16 06:00 88 12/11/16 04:13 100 35 12/11/16 04:00 100 12/11/16 04:00 98.0 100 20 139/79 (99) 100 12/11/16 04:00 35 12/11/16 02:00 107 12/11/16 00:00 98.2 94 18 116/60 (78) 100 12/11/16 00:00 94 12/11/16 00:00 35 12/10/16 23:45 100 35 12/10/16 22:00 92 12/10/16 21:19 100 35 12/10/16 20:00 95 12/10/16 20:00 35 12/10/16 20:00 97.9 95 18 103/58 (73) 100 12/10/16 18:16 35 12/10/16 18:00 97 I/O 12/10/16 12/10/16 12/10/16 12/11/16 12/11/16 12/11/16 07:00 15:00 23:00 07:00 15:00 23:00 Intake Total 180 ml 50 ml 1206 ml 341 ml 150 ml Output Total 150 ml 170 ml 175 ml 3000 ml Balance 30 ml 50 ml 1036 ml 166 ml -2850 ml Intake IV Total 100 ml 50 ml 1046 ml 156 ml 150 ml Tube Feeding 40 ml 125 ml Tube Irrigant 80 ml 120 ml Other 60 ml Output Urine Total 130 ml 150 ml 150 ml Drainage Total 20 ml 20 ml 25 ml Hemodialysis 3000 ml # Bowel Movements 2 0 0 Laboratory Laboratory Tests Test 12/11/16 03:45 White Blood Count 37.0 Red Blood Count 2.86 Hemoglobin 8.4 Hematocrit 25.8 Mean Corpuscular Volume 90.2 Mean Corpuscular Hemoglobin 29.5 Mean Corpuscular Hemoglobin Concent 32.7 Red Cell Distribution Width 16.0 Platelet Count 58 Mean Platelet Volume 11.0 CBC Comment AUTO DIFF Differential Total Cells Counted 100 Neutrophils % (Manual) 94 Band Neutrophils % 1 Lymphocytes % 1 Monocytes % 2 Neutrophils # (Manual) 35.9 Metamyelocytes 2 Differential Comment FINAL DIFF MANUAL Platelet Estimate LOW Platelet Morphology Comment NORMAL Prothrombin Time 14.4 Prothromb Time International Ratio 1.3 Activated Partial Thromboplast Time 27.8 Fibrinogen 137 Blood Urea Nitrogen 90 Creatinine 4.58 Random Glucose 190 Total Protein 5.6 Albumin 2.1 Calcium Level 7.9 Alkaline Phosphatase 299 Aspartate Amino Transf (AST/SGOT) 44 Alanine Aminotransferase (ALT/SGPT) 65 Total Bilirubin 3.7 Sodium Level 138 Potassium Level 4.1 Chloride Level 101 Carbon Dioxide Level 22.3 Anion Gap 15 Estimat Glomerular Filtration Rate 9 Date/Time Source Procedure Growth Status 12/09/16 15:13 Blood Peripheral Aerobic Blood Culture - Preliminary NO GROWTH IN 2 DAYS Resulted 12/09/16 15:13 Blood Peripheral Anaerobic Blood Culture - Preliminary NO GROWTH IN 2 DAYS Resulted 12/03/16 14:55 Fluid Bile Fluid Gram Stain - Final Complete 12/03/16 14:55 Body Fluid Culture - Final Enterococcus Faecalis Complete 12/09/16 15:50 Sputum Endotracheal Gram Stain - Final Resulted 12/09/16 15:50 Sputum Culture - Preliminary Gram Negative Primitivo Resulted 12/09/16 18:00 Urine Catheterized Urine Urine Culture - Preliminary NO GROWTH IN 24 HOURS. Resulted Physical Exam GEN: Sedated on vent. HEENT: Normocephalic; atraumatic; no jaundice. CHEST: Resp even/unlabored, OETT to vent. Course breath sounds CARDIAC: RRR ABDOMEN: Soft, mildly distended, cholecystomy tube site leaking, bowel sounds are hypoactive EXTREMITIES: Edema BUE SKIN: Normal; no rash; no jaundice. 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 Assessment and Plan Plan ASSESSMENT: - Cholecystitis. CT scan abdomen and pelvis without iv contrast (12/02/16)---> No evidence of acute abdominal or pelvic process. No masses are identified. Cholelithiasis. Left lower lobe atelectasis versus pneumonia, a large hiatal hernia is present, diverticulosis without evidence of diverticulitis. Liver US (12/02/16)---> Cholelithiasis with wall thickening and trace pericholecystic fluid, no evidence of biliary duct distention, no other significant abnormality. Bacteremia with multiple organisms. GS following, s/p cholecystomy tube 12/03. Zosyn, Levaquin, T. BIli 3.6, AST 58, ALT 71, Alk Phosph 249. Cholecystomy tube leaking, will have IR nurse evaluate. - FEN/Malnutrition. Nurse was unable to place OGT (would not advance). Attempt at NGT/Dobbhoff was unsuccessful. S/P EGD with OGT placement (12/07/16)----> Hiatal hernia. Successful OG tube placement. Tolerating TF. Inspector And Adjuster [employer] recommends Nepro GR 45cc/hr. - Epistaxis. (after attempted Dobbhoff placement) resolved. - Thrombocytopenia, Coagulopathy. S/P 2 units of FFP. HIT negative - Elevated LFTs. No evidence of biliary duct obstruction. No evidence of pancreatitis or dilated ducts on imaging. Unclear if this is all cholecystis, or passed stone, or possible ETOH and cholecystitis. S/P Cholecystomy tube. Hepatitis profile negative, HERBER negative, AMA <20.0, ASMA neg, Iron saturation 2.7%, Ferritin 306, ALpha 1 antitrypsin 209, Ceruloplasmin 32, AFP. LFTs improving - Severe sepsis with multisystem failure. BCx from 12/02/16 grew enterobacter species, klebsiella pneumoniae, escherichia coli, and GNR in the anaerobic bottle. Bile cx Group D Enterococcus. Sputum Cx E. Coli. Rpt urine, sputum, blood culture pending. Zosyn, Levaquin. WBC 33.7. - Anemia. HH 8.3/25.0. - Abdominal pain, nausea, decreased appetite. Likely related to cholecystis. Currently sedated. - ARF with severe electrolyte abnormalities. S/P CVVHD, now transitioned to HD. Scheduled for or saturday. Per nephrology - Resp. Failure/PNA. CXR LLL atelectasis vs. pna, resolving right basilar atelectasis. Cx E. Coli. vent per CCM - Chronic back pain r/t scoliosis. Uses medical marijuana via vaping and takes 4 shots of scotch per day to help with her pain control. Last had these 2 weeks ago. - CAD, Hx HTN, Hyperlipidemia per attending. PLAN: - Nepro 45cc/hr - Abx per ID recommendations - Have IR nurse evaluate leaking cholecystomy tube - S/P Cholecystomy tube placement by IR (12/03) - Monitor labs - Supportive care - Further recommendations to follow based on results of above Aren Andre MD Dec 11, 2016 16:38
--- NOTE | 2016-12-11 16:43 | HHI.IDPN ---
Subjective Subjective Remarks afebrile of pressors On vent Biliary drain not draining Pt has MS change: she opens eyes and w/d, but not follows commands or tracks she is going to have CT brain, as wel as A/P and chest today Sputum clx growing GNB WBC 37 K Antibiotics zosyn' levaquine Allergies: Coded Allergies: No Known Allergies (Unverified , 12/02/16) Objective . Vital Signs Date Time Temp Pulse Resp B/P (MAP) Pulse Ox O2 Delivery O2 Flow Rate FiO2 12/11/16 16:24 97 35 12/11/16 15:01 154 129/75 12/11/16 14:00 149 12/11/16 12:00 99 12/11/16 12:00 35 12/11/16 12:00 97.4 99 22 127/62 (83) 97 12/11/16 11:56 97 35 12/11/16 10:00 90 12/11/16 08:49 96 35 12/11/16 08:00 93 12/11/16 08:00 97.7 93 21 110/61 (77) 97 12/11/16 08:00 35 12/11/16 06:00 88 12/11/16 04:13 100 35 12/11/16 04:00 100 12/11/16 04:00 98.0 100 20 139/79 (99) 100 12/11/16 04:00 35 12/11/16 02:00 107 12/11/16 00:00 98.2 94 18 116/60 (78) 100 12/11/16 00:00 94 12/11/16 00:00 35 12/10/16 23:45 100 35 12/10/16 22:00 92 12/10/16 21:19 100 35 12/10/16 20:00 95 12/10/16 20:00 35 12/10/16 20:00 97.9 95 18 103/58 (73) 100 12/10/16 18:16 35 12/10/16 18:00 97 12/11/16 12/11/16 12/12/16 15:00 23:00 07:00 Intake Total 150 ml Output Total 3000 ml Balance -2850 ml Intake IV Total 150 ml Hemodialysis 3000 ml . Laboratory Tests Test 12/10/16 05:17 12/11/16 03:45 White Blood Count 33.7 TH/MM3 37.0 TH/MM3 Red Blood Count 2.78 MIL/MM3 2.86 MIL/MM3 Hemoglobin 8.3 GM/DL 8.4 GM/DL Hematocrit 25.0 % 25.8 % Mean Corpuscular Volume 89.9 FL 90.2 FL Mean Corpuscular Hemoglobin 29.8 PG 29.5 PG Mean Corpuscular Hemoglobin Concent 33.2 % 32.7 % Red Cell Distribution Width 15.7 % 16.0 % Platelet Count 51 TH/MM3 58 TH/MM3 Mean Platelet Volume 10.9 FL 11.0 FL CBC Comment AUTO DIFF AUTO DIFF Differential Total Cells Counted 100 100 Neutrophils % (Manual) 92 % 94 % Band Neutrophils % 4 % 1 % Lymphocytes % 2 % 1 % Monocytes % 2 % 2 % Neutrophils # (Manual) 32.4 TH/MM3 35.9 TH/MM3 Nucleated Red Blood Cells 2 /100 WBC Differential Comment FINAL DIFF MANUAL FINAL DIFF MANUAL Platelet Estimate LOW LOW Platelet Morphology Comment ENLARGED NORMAL Keratocytes OCC Metamyelocytes 2 % Laboratory Tests Test 12/10/16 05:17 12/11/16 03:45 Blood Urea Nitrogen 73 MG/DL 90 MG/DL Creatinine 3.87 MG/DL 4.58 MG/DL Random Glucose 175 MG/DL 190 MG/DL Total Protein 5.2 GM/DL 5.6 GM/DL Albumin 2.0 GM/DL 2.1 GM/DL Calcium Level 8.2 MG/DL 7.9 MG/DL Alkaline Phosphatase 249 U/L 299 U/L Aspartate Amino Transf (AST/SGOT) 58 U/L 44 U/L Alanine Aminotransferase (ALT/SGPT) 71 U/L 65 U/L Total Bilirubin 3.6 MG/DL 3.7 MG/DL Sodium Level 141 MEQ/L 138 MEQ/L Potassium Level 4.1 MEQ/L 4.1 MEQ/L Chloride Level 102 MEQ/L 101 MEQ/L Carbon Dioxide Level 23.6 MEQ/L 22.3 MEQ/L Anion Gap 15 MEQ/L 15 MEQ/L Estimat Glomerular Filtration Rate 11 ML/MIN 9 ML/MIN Microbiology Date/Time Source Procedure Growth Status 12/09/16 15:13 Blood Peripheral Aerobic Blood Culture - Preliminary NO GROWTH IN 2 DAYS Resulted 12/09/16 15:13 Blood Peripheral Anaerobic Blood Culture - Preliminary NO GROWTH IN 2 DAYS Resulted 12/09/16 15:08 Blood Peripheral Aerobic Blood Culture - Preliminary NO GROWTH IN 2 DAYS Resulted 12/09/16 15:08 Blood Peripheral Anaerobic Blood Culture - Preliminary NO GROWTH IN 2 DAYS Resulted 12/09/16 15:50 Sputum Endotracheal Gram Stain - Final Resulted 12/09/16 15:50 Sputum Culture - Preliminary Gram Negative Primitivo Resulted 12/09/16 18:00 Urine Catheterized Urine Urine Culture - Preliminary NO GROWTH IN 24 HOURS. Resulted Imaging Last Impressions Chest X-Ray 12/09/16 0600 Signed Impressions: Service Date/Time: Friday, December 09, 2016 04:06 - CONCLUSION: 1. Interval placement of nasogastric tube. 2. Bibasal opacities remain. Josef Luther MD Abdomen X-Ray 12/09/16 0000 Signed Impressions: Service Date/Time: Friday, December 09, 2016 12:19 - CONCLUSION: OG tube tip in the distal stomach. Fermin Wills MD Abdomen CT 12/08/16 0000 Signed Impressions: Service Date/Time: Thursday, December 08, 2016 17:52 - CONCLUSION: 1. Cholecystostomy tube in good position. Nain Sharma Jr., MD Abdomen/Pelvis CT 12/04/16 0600 Signed Impressions: Service Date/Time: Sunday, December 04, 2016 09:35 - CONCLUSION: 1. Interval placement of a cholecystostomy tube. 2. Bibasilar consolidation likely related to atelectasis. This is unchanged. 3. Tip of the NG tube in the hiatal hernia. 4. Small volume ascites. 5. No acute abnormality observed. Nain Sharma Jr., MD Percutaneous Cholangiogram 12/03/16 0000 Signed Impressions: Service Date/Time: Saturday, December 03, 2016 14:31 - CONCLUSION: Uncomplicated percutaneous cholecystostomy as above. Nain Sharma Jr., MD Liver Ultrasound 12/02/16 0000 Signed Impressions: Service Date/Time: Friday, December 02, 2016 19:12 - CONCLUSION: 1. Cholelithiasis with wall thickening and trace pericholecystic fluid. 2. No evidence of biliary duct distention. 3. No other significant abnormality. Jak Hughes MD Physical Exam CONSTITUTIONAL/GENERAL: This is an adequately nourished patient, in no apparent distress. TUBES/LINES/DRAINS: biliary drain in place with small amount of serosang fluid SKIN: less jaundice, rashes, or lesions. . Skin temperature appropriate. Not diaphoretic. HEAD: Atraumatic. Normocephalic. EYES: Pupils equal and round and reactive. very mild scleral icterus. No injection or drainage. Fundi not examined. ENT: Hearing not assessed. Nose without bleeding or purulent drainage. Oraly intubated NECK: Trachea midline. Supple, nontender. CARDIOVASCULAR: Regular rate and rhythm without murmurs, gallops, or rubs. No JVD. Peripheral pulses symmetric. Perfusion diminished on b/l toes, on fingersd refill is brisk RESPIRATORY/CHEST: Symmetric, unlabored respirations. Clear to auscultation. Breath sounds equal bilaterally. No wheezes, rales, or rhonchi. GASTROINTESTINAL: Abdomen soft, no reaction to papation + distended. No hepato- splenomegaly, or palpable masses. Drain in place No guarding. Bowel sounds very hypoactive GENITOURINARY: Without palpable bladder distension. Peterson catheter in place with small amount of cloudy urine MUSCULOSKELETAL: Extremities without clubbing, cyanosis, + 2 edema. No joint tenderness or effusion noted. No calf tenderness. No mottling or clubbing. NEUROLOGICAL: Sedated mildluy , opens eyes to touch not tracking or folowing commands PSYCHIATRIC: unabe to assess Assessment & Plan Remarks Billiary sepsis ? uncontrolled as of today WBC trending up, pts and fibrinogen down Multi-organ failure: acute VDRF ARF, on HD Hypotension, resolved, currently off pressors Gram negative sepsis - biliary Acute calculous cholecystitis sp cholecystostomy tube placement - growing enterococccus chirinos S and >=3 MIXED ENTERIC GRAM NEGATIVE RODS in the bile clx - not much drainage ? E.coli UTI vs colonisatrion ? PNA vs ARDS - growing E.coli in sputum R to zosyn Critical, seems more stable today Leukocytosis, leukemoid reaction - WBC even worse today Fibrinogen trending up today, plts dwn - likely DIC Critically ill, unstabe cont zosyn cont levaqine for zosyn-R E.coli in the sputum will follow CT results robyn Garcia RN dw Dr Portillo (gen surgery) Jina Ramos MD Dec 11, 2016 16:43
--- NOTE | 2016-12-11 17:32 | RADRPT ---
EXAM DATE/TIME: 12/11/2016 17:09 [facility] COMPARISON: No previous studies available for comparison. INDICATIONS : Altered mental status. RADIATION DOSE: 52.54 CTDIvol (mGy) MEDICAL HISTORY : Cardiovascular disease. Hypertension. SURGICAL HISTORY : None. ENCOUNTER: Initial ACUITY: 1 day PAIN SCALE: Non-responsive LOCATION: cranial TECHNIQUE: Multiple contiguous axial images were obtained of the head. Using automated exposure control and adj ustment of the mA and/or kV according to patient size, radiation dose was kept as low as reasonably a chievable to obtain optimal diagnostic quality images. DICOM format image data is available electro nically for review and comparison. FINDINGS: CEREBRUM: Anatomic detail is somewhat limited by motion artifact grossly, the brain appears to be radiographica lly intact with no acute intracranial process.. POSTERIOR FOSSA: The cerebellum and brainstem are intact. The 4th ventricle is midline. The cerebellopontine angle i s unremarkable. EXTRACRANIAL: The visualized portion of the orbits is intact. Fluid in the mastoid air cells bilaterally characteri stic of acute mastoiditis. Mild chronic sinus disease with small retention cysts/mucoperiosteal thick ening in the sphenoid sinuses bilaterally. SKULL: The calvaria is intact. No evidence of skull fracture. CONCLUSION: 1. Minimal chronic sinusitis in the sphenoid sinuses bilaterally. 2. Bilateral acute mastoiditis. 3. Otherwise negative. Anatomic detail is somewhat limited due to motion artifact, however. Jamel Johns MD on December 11, 2016 at 17:27 Board Certified Radiologist. This report was verified electronically.
--- NOTE | 2016-12-11 17:47 | RADRPT ---
EXAM DATE/TIME: 12/11/2016 17:15 [facility] COMPARISON: CT ABDOMEN & PELVIS W/O CONTRAST, December 04, 2016, 9:35. INDICATIONS : Leukocytosis, cholecystitis. ORAL CONTRAST: Partial prescribed oral contrast ingested. RADIATION DOSE: 16.78 CTDIvol (mGy) ; Combined studies - Thorax/Abdomen/Pelvis MEDICAL HISTORY : Cardiovascular disease. Hypertension. SURGICAL HISTORY : None. ENCOUNTER: Initial ACUITY: 1 day PAIN SCALE: Non-responsive LOCATION: Bilateral abdomen TECHNIQUE: Volumetric scanning of the abdomen and pelvis was performed. Using automated exposure control and ad justment of the mA and/or kV according to patient size, radiation dose was kept as low as reasonably achievable to obtain optimal diagnostic quality images. DICOM format image data is available electro nically for review and comparison. FINDINGS: LOWER LUNGS: Bilateral lower lung infiltrates and pleural effusions, stable from prior. LIVER: Homogeneous density without lesion. There is no dilation of the biliary tree. Percutaneous cholecys tostomy catheter in place. Decrease the amount of intraluminal density.. SPLEEN: Normal size without lesion. PANCREAS: Within normal limits. KIDNEYS: Normal in size and shape. There is no mass, stone, or hydronephrosis. ADRENAL GLANDS: Within normal limits. VASCULAR: There is no aortic aneurysm. BOWEL/MESENTERY: Gastric tube tip and side port within the antrum of the stomach. No dilated loops of small or large bowel. There is a mild amount of free fluid in the pelvis, decreased from prior, measuring up to 3.7 cm. ABDOMINAL WALL: Increased thickness to the lateral abdominal musculature and increasing induration in the subcutaneou s fat of the lateral abdominal and thick wall. Focal area of induration in the anterior mid abdomina l wall left of the umbilicus is stable in appearance. RETROPERITONEUM: There is no lymphadenopathy. BLADDER: Peterson catheter in nondistended bladder. REPRODUCTIVE: Within normal limits. INGUINAL: There is no lymphadenopathy or hernia. MUSCULOSKELETAL: Degenerative changes related to scoliosis. CONCLUSION: 1. Cholecystostomy tube in place with decrease in the amount of hyperdensity within the lumen. 2. Persistent bilateral pleural effusions, stable. Persistent free fluid in the pelvis, slightly dec reased. 3. Increase in the amount of induration of the lateral abdominal wall and pelvic subcutaneous tissues an increase swelling of the lateral musculature Nain Mejia MD on December 11, 2016 at 17:39 Board Certified Radiologist. This report was verified electronically.
--- NOTE | 2016-12-11 18:57 | RADRPT ---
EXAM DATE/TIME: 12/11/2016 17:15 [facility] COMPARISON: No previous studies available for comparison. INDICATIONS : Leukocytosis. RADIATION DOSE: 16.78 CTDIvol (mGy) ; Combined studies - Thorax/Abdomen/Pelvis MEDICAL HISTORY : Cardiovascular disease. Hypertension. SURGICAL HISTORY : None. ENCOUNTER: Initial ACUITY: 1 day PAIN SCALE: Non-responsive LOCATION: Bilateral chest TECHNIQUE: Volumetric scanning of the chest was performed. Using automated exposure control and adjustment of t he mA and/or kV according to patient size, radiation dose was kept as low as reasonably achievable to obtain optimal diagnostic quality images. DICOM format image data is available electronically for r eview and comparison. Follow-up recommendations for detected pulmonary nodules are based at a minimum on nodule size and pa tient risk factors according to Fleischner Society Guidelines. FINDINGS: Small bilateral pleural effusions are present with slight bibasilar consolidation and/or levi sive collapse. Coronary artery calcifications are seen typically seen with CAD and need to be evaluat ed clinically. There are atherosclerotic calcifications of the aorta due to chronic atherosclerotic d isease. CONCLUSION: Small bibasilar consolidation and/or compressive collapse and bilateral pleural effusions. Kristen Deleon MD on December 11, 2016 at 18:52 Board Certified Radiologist. This report was verified electronically.
--- NOTE | 2016-12-11 20:51 | HHI.PR ---
Subjective Subjective Notes critically ill Objective Vitals/I&O Vital Signs Date Time Temp Pulse Resp B/P (MAP) Pulse Ox O2 Delivery O2 Flow Rate FiO2 12/11/16 20:02 98 35 12/11/16 18:00 88 12/11/16 16:00 98.0 18 108/59 (75) Labs Laboratory Tests Test 12/11/16 03:45 12/11/16 18:20 White Blood Count 37.0 Red Blood Count 2.86 Hemoglobin 8.4 Hematocrit 25.8 Mean Corpuscular Volume 90.2 Mean Corpuscular Hemoglobin 29.5 Mean Corpuscular Hemoglobin Concent 32.7 Red Cell Distribution Width 16.0 Platelet Count 58 Mean Platelet Volume 11.0 CBC Comment AUTO DIFF Differential Total Cells Counted 100 Neutrophils % (Manual) 94 Band Neutrophils % 1 Lymphocytes % 1 Monocytes % 2 Neutrophils # (Manual) 35.9 Metamyelocytes 2 Differential Comment FINAL DIFF MANUAL Platelet Estimate LOW Platelet Morphology Comment NORMAL Prothrombin Time 14.4 Prothromb Time International Ratio 1.3 Activated Partial Thromboplast Time 27.8 Fibrinogen 137 Blood Urea Nitrogen 90 Creatinine 4.58 Random Glucose 190 Total Protein 5.6 Albumin 2.1 Calcium Level 7.9 Alkaline Phosphatase 299 Aspartate Amino Transf (AST/SGOT) 44 Alanine Aminotransferase (ALT/SGPT) 65 Total Bilirubin 3.7 Sodium Level 138 Potassium Level 4.1 Chloride Level 101 Carbon Dioxide Level 22.3 Anion Gap 15 Estimat Glomerular Filtration Rate 9 Date/Time Source Procedure Growth Status 12/09/16 15:13 Blood Peripheral Aerobic Blood Culture - Preliminary NO GROWTH IN 2 DAYS Resulted 12/09/16 15:13 Blood Peripheral Anaerobic Blood Culture - Preliminary NO GROWTH IN 2 DAYS Resulted 12/03/16 14:55 Fluid Bile Fluid Gram Stain - Final Complete 12/03/16 14:55 Body Fluid Culture - Final Enterococcus Faecalis Complete 12/09/16 15:50 Sputum Endotracheal Gram Stain - Final Resulted 12/09/16 15:50 Sputum Culture - Preliminary Gram Negative Primitivo Resulted 12/09/16 18:00 Urine Catheterized Urine Urine Culture - Final NO GROWTH IN 48 HOURS. Complete Radiology Last 48 hours Impressions Percutaneous Cholangiogram 12/03/16 0000 Signed Impressions: Service Date/Time: Saturday, December 03, 2016 14:31 - CONCLUSION: Uncomplicated percutaneous cholecystostomy as above. Nain Sharma Jr., MD Chest X-Ray 12/02/16 2305 Signed Impressions: Service Date/Time: Friday, December 02, 2016 23:12 - CONCLUSION: 1. Satisfactory position of endotracheal tube as above. 2. Uncomplicated line placement. No evidence of pneumothorax. Royal Messer MD Chest X-Ray 12/02/16 1217 Signed Impressions: Service Date/Time: Friday, December 02, 2016 12:56 - CONCLUSION: Cardiomegaly. Left lower lobe atelectasis versus pneumonia. Royal Messer MD Liver Ultrasound 12/02/16 0000 Signed Impressions: Service Date/Time: Friday, December 02, 2016 19:12 - CONCLUSION: 1. Cholelithiasis with wall thickening and trace pericholecystic fluid. 2. No evidence of biliary duct distention. 3. No other significant abnormality. Jak Hughes MD Abdomen/Pelvis CT 12/02/16 0000 Signed Impressions: Service Date/Time: Friday, December 02, 2016 15:09 - CONCLUSION: 1. No evidence of acute abdominal or pelvic process. No masses are identified. 2. Cholelithiasis 3. Left lower lobe atelectasis versus pneumonia. 4. A large hiatal hernia is present. 5. Diverticulosis without evidence of diverticulitis. Royal Messer MD Abdomen: Non-distended, Non-tender A/P Assessment and Plan 71yo female with sepsis, Acute cholecystitis, continue sepsis, increased LFT. recent CT scan with no acute abdominal process, cholecystostomy tube in good position. flush tube Q shift. possible continued choleangitis, may need ERCP or PTC if she has biliary obstruction. will follow Roly Portillo MD Dec 11, 2016 20:51
--- NOTE | 2016-12-11 22:01 | EKG ---
Date Performed: 12/11/2016 Time Performed: 14:18:18 PTAGE: 71 years EKG: Atrial fibrillation with rapid ventricular response with PVC(s) or aberrant ventricular con duction Extensive ST-T changes Abnormal ECG PREVIOUS TRACING : 12/02/2016 12.51 Compared to the previous tracing a fib now present DOCTOR: Alfredo Nathan Interpretating Date/Time 12/11/2016 21:59:36
--- NOTE | 2016-12-11 23:45 | PD.ORT.PN ---
Subjective Subjective Remarks Please see dictated consult for full details. Patient intubated and not following commands Objective Vitals Vital Signs Date Time Temp Pulse Resp B/P (MAP) Pulse Ox O2 Delivery O2 Flow Rate FiO2 12/11/16 22:00 84 12/11/16 20:02 98 35 12/11/16 20:00 90 12/11/16 20:00 35 12/11/16 20:00 98.7 90 26 133/68 (89) 97 12/11/16 18:00 88 12/11/16 17:00 100 100 12/11/16 16:34 85 12/11/16 16:24 97 35 12/11/16 16:00 98.0 66 18 108/59 (75) 98 12/11/16 16:00 66 12/11/16 16:00 35 12/11/16 15:01 154 129/75 12/11/16 14:00 149 12/11/16 12:00 99 12/11/16 12:00 35 12/11/16 12:00 97.4 99 22 127/62 (83) 97 12/11/16 11:56 97 35 12/11/16 10:00 90 12/11/16 08:49 96 35 12/11/16 08:00 93 12/11/16 08:00 97.7 93 21 110/61 (77) 97 12/11/16 08:00 35 12/11/16 06:00 88 12/11/16 04:13 100 35 12/11/16 04:00 100 12/11/16 04:00 98.0 100 20 139/79 (99) 100 12/11/16 04:00 35 12/11/16 02:00 107 12/11/16 00:00 98.2 94 18 116/60 (78) 100 12/11/16 00:00 94 12/11/16 00:00 35 12/10/16 23:45 100 35 I/O 12/11/16 12/11/16 12/11/16 12/12/16 12/12/16 12/12/16 07:00 15:00 23:00 07:00 15:00 23:00 Intake Total 341 ml 150 ml 559 ml Output Total 175 ml 3000 ml 175 ml Balance 166 ml -2850 ml 384 ml Intake IV Total 156 ml 150 ml 139 ml Tube Feeding 125 ml 300 ml Tube Irrigant 120 ml Other 60 ml Output Urine Total 150 ml 175 ml Drainage Total 25 ml 0 ml Hemodialysis 3000 ml # Bowel Movements 0 1 Result Diagram: 12/11/16 0345 12/11/16 0345 Other Results Laboratory Tests Test 12/11/16 03:45 Prothromb Time International Ratio 1.3 RATIO Prothrombin Time 14.4 SEC (9.8-11.6) Imaging Last [address] 12/11/16 0000 Signed Impressions: Service Date/Time: Sunday, December 11, 2016 17:09 - CONCLUSION: 1. Minimal chronic sinusitis in the sphenoid sinuses bilaterally. 2. Bilateral acute mastoiditis. 3. Otherwise negative. Anatomic detail is somewhat limited due to motion artifact, however. Jamel Johns MD Chest CT 12/11/16 0000 Signed Impressions: Service Date/Time: Sunday, December 11, 2016 17:15 - CONCLUSION: Small bibasilar consolidation and/or compressive collapse and bilateral pleural effusions. Kristen Deleon MD Abdomen/Pelvis CT 12/11/16 0000 Signed Impressions: Service Date/Time: Sunday, December 11, 2016 17:15 - CONCLUSION: 1. Cholecystostomy tube in place with decrease in the amount of hyperdensity within the lumen. 2. Persistent bilateral pleural effusions, stable. Persistent free fluid in the pelvis, slightly decreased. 3. Increase in the amount of induration of the lateral abdominal wall and pelvic subcutaneous tissues an increase swelling of the lateral musculature Nain Mejia MD Objective Remarks Skin tear left forearm without erythema or drainage, no exposed muscle or tendon , compartments soft and compressible, 2+ radial pulse Assessment & Plan Assessment and Plan 71yF with skin tear left forearm -No indication for surgical intervention at this time -Recommend nonadherent dressing, consider wound care consult -Please call with any worsening of wound Kallie Graves MD Dec 11, 2016 23:45
[2016-12-12] VITALS (20 sets, daily range): BP systolic 123–152; BP diastolic 66–74; PULSE 75–91; RESP 17–25; TEMP 96.3–98.8; O2SAT 96–100
[2016-12-12] MEDS: HYDROCORTISONE SOD SUCCINATE 100 MG VIAL IV PUSH SCH ×3 (01:00→16:24)
[2016-12-12] MEDS: CHLORHEXIDINE GLUCONATE 2 % 1 PACK (2 CLOTHS) TOP SCH (01:47)
[2016-12-12 04:35] LABS: AUTOMATED NEUTROPHIL # 26.2 TH/MM3 (1.8-7.7); BASOPHIL % 0.2 % (0.0-2.0); HEMATOCRIT 21.5 % (35.0-46.0); HEMOGLOBIN 7.2 GM/DL (11.6-15.3); LYMPH % 3.9 % (9.0-44.0); LYMPHOCYTE # 1.1 TH/MM3 (1.0-4.8); MEAN CELL VOLUME 90.9 FL (80.0-100.0); MEAN CORPUSCULAR HEMOGLOBIN 30.5 PG (27.0-34.0); MEAN CORPUSCULAR HGB CONC 33.6 % (32.0-36.0); MEAN PLATELET VOLUME 10.7 FL (7.0-11.0); MONO % 4.6 % (0.0-8.0); MONOCYTE # 1.3 TH/MM3 (0-0.9); NEUT % 91.3 % (16.0-70.0); PLATELET COUNT 44 TH/MM3 (150-450); RED BLOOD COUNT 2.36 MIL/MM3 (4.00-5.30); RED CELL DISTRIBUTION WIDTH 15.6 % (11.6-17.2); WHITE BLOOD COUNT 28.6 TH/MM3 (4.0-11.0)
[2016-12-12] MEDS: PIPERACIL-TAZO 2.25 GM PREMIX 50 ML IV SCH ×4 (05:00→22:37)
[2016-12-12 05:17] LABS: ALBUMIN 2.9 GM/DL (3.4-5.0); ALKALINE PHOSPHATASE 274 U/L (45-117); ALT (GPT) 50 U/L (10-53); AST (GOT) 41 U/L (15-37); BICARBONATE 26.2 MEQ/L (21.0-32.0); BLOOD UREA NITROGEN 77 MG/DL (7-18); CALCIUM 8.1 MG/DL (8.5-10.1); CHLORIDE 99 MEQ/L (98-107); CREATININE 3.91 MG/DL (0.50-1.00); GLOMERULAR FILTRATION RATE 11 ML/MIN (>89); GLUCOSE,RANDOM 214 MG/DL (74-106); SODIUM (NA) 139 MEQ/L (136-145); TOTAL BILIRUBIN ADULT 3.6 MG/DL (0.2-1.0); TOTAL PROTEIN 5.8 GM/DL (6.4-8.2)
[2016-12-12 07:08] LABS: BANDS 3 % (0-6); CORRECTED NUCLEATED RBC 2 /100 WBC (0-0); LYMPHOCYTES 3 % (9-44); MONOCYTES 6 % (0-8); NUCLEATED RED BLOOD CELL 2 (0-0); POLYS (SEG NEUTROPHILS) 88 % (16-70)
[2016-12-12 07:12] LABS: KERATOCYTES OCC (NORMAL)
[2016-12-12] MEDS: CHLORHEXIDINE 0.12% (ORAL KIT) 15 ML CUP MT SCH ×2 (08:00→22:35)
[2016-12-12] MEDS: INSULIN NovoLIN REGULAR SUPPLEMENTAL SCALE SQ SCH ×4 (08:16→21:00)
[2016-12-12] MEDS: FAMOTIDINE 20 MG/2 ML VIAL IV PUSH SCH (08:17)
--- NOTE | 2016-12-12 08:17 | HHI.CCPN ---
Subjective Remarks/Hospital Course This is a 71-year-old female presents to the ED via EMS for evaluation of fever , shortness breath, vomiting, diarrhea, abdominal pain She reports that she's been short of breath for the past 2 weeks, but has progressed in the past 2 days. Patient has been seeing a fuel house attendant for her shortness of breath, is not on home oxygen. The patient reported she has a history of smoking. She is also complaining of abdominal pain that started 2 days ago with vomiting and diarrhea. Patient has severe tenderness to mild palpation. She has history of NE. She received 500 mL normal saline IV bolus, and Zofran 4 mg IV. Critical care medicine was consulted. Subjective: 12/03: Tmax 100.9. Last evening the patient was noted to have significant respiratory decompensation with requirement for emergent intubation. The patient subsequently became hemodynamically unstable requiring vasopressor support. Patient is lightly sedated, and continues to have abdominal pain, and hypoactive bowel sounds, GI has been consulted. HIDA scan previously scheduled for this morning, after discussion with Dr Goodrich , plan for cholecystostomy tube placement by IR. Ultrasound liver showed no biliary duct distention but notable thickened gallbladder wall. 12/04: Tmax 100.4. Patient continues with severe metabolic acidosis, sodium bicarbonate infusion increased to 150 cc/hour yesterday afternoon. Antibiotics were expanded yesterday with addition of Micafungin and Diflucan. Blood cultures resulted with Enterobacter, Klebsiella pneumoniae and Escherichia coli. ID consulted recommendations appreciated. Patient is status post placement of percutaneous cholecystostomy tube . Patient now icteric, but LFTs are trending down. Records obtained from primary care physician with cardiology reports from earlier in the year, patient with noted pulmonary hypertension and NYHA class III. In-hospital echo pending. Patient continues on 3 pressors to maintain blood pressure. 12/05: Patient has been weaned off of vasopressor continues on to agents Gurinder- Synephrine, norepinephrine at low doses. Patient noted to still be thrombocytopenic platelet count decreased today HIT panel pending. INR remains elevated no active signs of bleeding liver function enzymes remain elevated. No urine output over the last 12 hours nephrology following discussion with for possible hemodialysis, will await nephrology recommendations. Sodium bicarbonate infusion discontinued. Patient remains alert GCS 11 T. 12/06: Afebrile. The patient continues on CRRT initiated last night, tolerating it well patient continues only on phenylephrine infusion to maintain MAP. The patient received 2 units of FFP per hematology/oncology recommendations. Plan for evaluation and placement for NG tube placement vice president of instruction. 12/07: Afebrile. Vasopressors discontinued at 4 AM, CRRT completed, patient will be transitioned to IHD 2 times a week. Patient was noted to be severely thrombocytopenic platelet count 32 ,plan for transfusions of platelets, fibrinogen level decreasing. Bile specimen noted to result Enterococcus faecalis, contacted Dr. Portillo general surgery updated him discussion regarding elective versus semielective laparoscopic cholecystectomy ,informed that no surgical intervention indicated at this time. Cholecystostomy tube continues to drain. 12/08: Afebrile. The patient has been transitioned to IHD 2 times a week. 3 L removal of fluid today. The patient remains hemodynamically stable off of all vasopressors greater than 24 hours at this time. A chin continues to have persistent leukocytosis with elevation in WBC count and downward trend up fibrinogen level . Cholecystostomy tube low output, CT scan abdomen pending. General surgery reconsulted to review surgical options for patient. 12/09 Patient is sedated with Fentanyl and intubated. s/p HD yesterday with removal 3L. NPO for possible OR today. 12/10 No events overnight. Sedated with Fentanyl and intubated. Afebrile. 12/11 Patient remains intubated and sedated with Fentanyl. Tolerated CPAP trials for 4 hrs yesterday. For HD today. Afebrile however her WBC increased 37 from 33. Moves spontaneously but does not follow commands. 12/12 Patient went into afib with RVR placed on Cardizem drip now at 5mg/hr on CPAP with PS 10, PEEP:5 and FIO2 35%. Afebrile. WBC is trending down. Objective Vital Signs Date Time Temp Pulse Resp B/P (MAP) Pulse Ox O2 Delivery O2 Flow Rate FiO2 12/12/16 07:25 96 35 12/12/16 06:00 80 161/75 12/12/16 04:00 98.2 18 Intake and Output 12/12/16 12/12/16 12/13/16 08:00 16:00 00:00 Intake Total 789 ml Output Total 255 ml Balance 534 ml Result Diagram: 12/12/16 0335 12/12/16 0335 Other Results Laboratory Tests Test 12/11/16 18:20 10/25/17 03:35 Stool C. difficile Toxin (PCR) NEGATIVE Stl C. difficile Toxin Epiderm 027 PRESUMPTIVE NEGATIVE White Blood Count 28.6 TH/MM3 Red Blood Count 2.36 MIL/MM3 Hemoglobin 7.2 GM/DL Hematocrit 21.5 % Mean Corpuscular Volume 90.9 FL Mean Corpuscular Hemoglobin 30.5 PG Mean Corpuscular Hemoglobin Concent 33.6 % Red Cell Distribution Width 15.6 % Platelet Count 44 TH/MM3 Mean Platelet Volume 10.7 FL Neutrophils (%) (Auto) 91.3 % Lymphocytes (%) (Auto) 3.9 % Monocytes (%) (Auto) 4.6 % Eosinophils (%) (Auto) 0.0 % Basophils (%) (Auto) 0.2 % Neutrophils # (Auto) 26.2 TH/MM3 Lymphocytes # (Auto) 1.1 TH/MM3 Monocytes # (Auto) 1.3 TH/MM3 Eosinophils # (Auto) 0.0 TH/MM3 Basophils # (Auto) 0.0 TH/MM3 CBC Comment AUTO DIFF Differential Total Cells Counted 100 Neutrophils % (Manual) 88 % Band Neutrophils % 3 % Lymphocytes % 3 % Monocytes % 6 % Neutrophils # (Manual) 26.0 TH/MM3 Nucleated Red Blood Cells 2 /100 WBC Differential Comment FINAL DIFF MANUAL Platelet Estimate LOW Platelet Morphology Comment ENLARGED Basophilic Stippling FAINT Keratocytes OCC Blood Urea Nitrogen 77 MG/DL Creatinine 3.91 MG/DL Random Glucose 214 MG/DL Total Protein 5.8 GM/DL Albumin 2.9 GM/DL Calcium Level 8.1 MG/DL Alkaline Phosphatase 274 U/L Aspartate Amino Transf (AST/SGOT) 41 U/L Alanine Aminotransferase (ALT/SGPT) 50 U/L Total Bilirubin 3.6 MG/DL Sodium Level 139 MEQ/L Potassium Level 3.6 MEQ/L Chloride Level 99 MEQ/L Carbon Dioxide Level 26.2 MEQ/L Anion Gap 14 MEQ/L Estimat Glomerular Filtration Rate 11 ML/MIN Imaging Last Impressions Head CT 12/11/16 0000 Signed Impressions: Service Date/Time: Sunday, December 11, 2016 17:09 - CONCLUSION: 1. Minimal chronic sinusitis in the sphenoid sinuses bilaterally. 2. Bilateral acute mastoiditis. 3. Otherwise negative. Anatomic detail is somewhat limited due to motion artifact, however. Jamel Johns MD Chest CT 12/11/16 0000 Signed Impressions: Service Date/Time: Sunday, December 11, 2016 17:15 - CONCLUSION: Small bibasilar consolidation and/or compressive collapse and bilateral pleural effusions. Kristen Deleon MD Abdomen/Pelvis CT 12/11/16 0000 Signed Impressions: Service Date/Time: Sunday, December 11, 2016 17:15 - CONCLUSION: 1. Cholecystostomy tube in place with decrease in the amount of hyperdensity within the lumen. 2. Persistent bilateral pleural effusions, stable. Persistent free fluid in the pelvis, slightly decreased. 3. Increase in the amount of induration of the lateral abdominal wall and pelvic subcutaneous tissues an increase swelling of the lateral musculature Nain Mejia MD Chest X-Ray 12/09/16 0600 Signed Impressions: Service Date/Time: Friday, December 09, 2016 04:06 - CONCLUSION: 1. Interval placement of nasogastric tube. 2. Bibasal opacities remain. Josef Luther MD Abdomen X-Ray 12/09/16 0000 Signed Impressions: Service Date/Time: Friday, December 09, 2016 12:19 - CONCLUSION: OG tube tip in the distal stomach. Fermin Wills MD Abdomen CT 12/08/16 0000 Signed Impressions: Service Date/Time: Thursday, December 08, 2016 17:52 - CONCLUSION: 1. Cholecystostomy tube in good position. Nain Sharma Jr., MD Percutaneous Cholangiogram 12/03/16 0000 Signed Impressions: Service Date/Time: Saturday, December 03, 2016 14:31 - CONCLUSION: Uncomplicated percutaneous cholecystostomy as above. Nain Sharma Jr., MD Liver Ultrasound 12/02/16 0000 Signed Impressions: Service Date/Time: Friday, December 02, 2016 19:12 - CONCLUSION: 1. Cholelithiasis with wall thickening and trace pericholecystic fluid. 2. No evidence of biliary duct distention. 3. No other significant abnormality. Jak Hughes MD Objective Remarks Infusions: Versed 2 mg/hour Fentanyl 50 mcgs BP 121/59 Pulse 83 O2 saturation 95% on FiO2 of 35% GENERAL: Critically ill appearing appropriately stated age female intubated and mild sedation, and tenuous eye opening SKIN: Warm and dry. HEAD: Atraumatic. Normocephalic. EYES: Pupils equal and round. Mild scleral icterus, decreasing. No injection or drainage. Extraocular movements intact ENT: No nasal bleeding or discharge. Mucous membranes pink and moist. Orotracheally intubated NECK: Trachea midline. No JVD. CARDIOVASCULAR: Normal rate, regular rhythm. Telemetry sinus rhythm RESPIRATORY: No accessory muscle use. Clear to auscultation. Breath sounds equal bilaterally. GASTROINTESTINAL: Abdomen soft,nondistended, tender to palpation. No guarding. MUSCULOSKELETAL: Extremities without clubbing, cyanosis, or edema. No obvious deformities. Right groin Vas-Cath site soft no erythema/drainage NEUROLOGICAL: RASS -2. No gross focal/sensory deficits. Not following commands today Procedures 12/02-abdominal ultrasound 12/03- percutaneous cholecystostomy tube placement 12/05-patient of CRRT, completion 12/07 12/08-initiation of IHD Date of Insertion: Dec 02, 2016 Line: Central Venous Catheter Side: Left Location: Femoral A/P Assessment and Plan ASSESSMENT Abdominal pain Hiatal hernia Diverticulitis Cholelithiasis with cholecystitis Transaminitis Nausea Hyperlipidemia Hypertension History of NE Coronary artery disease-S/P angioplasty 2 History of systolic CHF Acute hypoxemic respiratory failure Probable community-acquired pneumonia Hypokalemia Alcohol use disorder Elevated creatinine Pancytopenia Transaminitis Acute renal failure Multisystem organ failure secondary to septic shock Acute decompensated systolic heart failure Coagulopathy Bandemia Persistent leukocytosis Critical illness polyneuropathy PLAN Neurologic: Neurochecks per ICU protocol Fentanyl infusion for ventilator synchrony- Daily sedation vacation. CT brain: Minimal chronic sinusitis in the sphenoid sinuses bilaterally. Bilateral acute mastoiditis. Otherwise negative Check EEG Monitor for signs of alcohol withdrawal Seizure precautions s/p folate and MVI. Thiamine 100mg daily Respiratory: Continue with vent support keep sat >92% Bronchodilators 36 hours scheduled, every 2 hours PRN 12/02-intubation 7.5 ETT Ventilator bundle. SBT daily as arti. CT chest: Small bibasilar consolidation Cardiovascular: Wean off Cardizem drip, place on PO Cardizem 60mg Q6-Monitor HR and BP keep MAP> 65mmHg Initial troponin 0.07->0.11->0.49. Possibly secondary to acute Kidney injury, and low-flow cardiac output state 12/04 echo results-EF 50% Patient's being seen regularly by pillowcase cutter in [place] Long MD Echo 10/03/15 per cardiology medical records(PR)-normal LV function,EF 56%, mild septal LVH, mild TR, mild PAH Patient's home meds include ASA 81mg, Metoprolol 50 mg ER (recently discontinued secondary to hypotension by pillowcase cutter 3 weeks ago) will not restart secondary to hemodynamic instability, Rosvustatin at this time will not continue secondary to elevated LFT's continue to trend. NYHA classification III-per previous records Renal Monitor renal function, I/O's, avoid nephrotoxins. s/p HD 12/08 with 3L fluid removal. s/p HD 12/11 witj 3L removal. Nephrology following-Dr. Carlos, 12/05 initiation of CRRT 12/08 initiation of IHD-schedule per nephrology -- Strict I/Os FEN/GI: Tube feeds started today-Nepro @45ml/hr CT abd/pelvis: Cholecystostomy tube in place with decrease in the amount of hyperdensity within the lumen.. Persistent bilateral pleural effusions, stable. Persistent free fluid in the pelvis, slightly decreased. Increase in the amount of induration of the lateral abdominal wall and pelvic subcutaneous tissues an increase swelling of the lateral musculature GI and surgery are following. Discussed with Dr. [place] yesterday. 12/02 CT abdomen pelvis-diverticulosis without diverticulitis, large hiatal hernia, cholelithiasis, no acute process ultrasound abdomen-no biliary duct dilatation, cholelithiasis with cholecystitis trace pericholecystic fluid 12/03- percutaneous cholecystostomy drain placement percutaneous cholecystostomy draining (Bile- Enterococcus faecalis)- monitor drainage 12/[address] Pathak bile fluid-Enterococcus faecalis-no surgical intervention at this time, plan for tentative semi-elective versus elective cholecystectomy in the future 12/08 general surgery reconsulted to review surgical options-vasopressor pressor support is not required, patient remains with elevated leukocytosis, will follow up recommendations Hold statin in the setting of elevated LFTs 12/07 CRRT discontinued patient will begin IHD 2 times a week Heme/ID: ID is following-Dr. Ramos, abx per ID (Zosyn, Levaquin) WBC is trending down 12/09 Sputum cx: S. Maltophilia, Mold species. Check spuutm cx 12/09 Pancultured- BC, Urine-NGTD 12/03 blood cultures-Enterobacter, Klebsiella pneumoniae, Escherichia coli 12/03 Legionella, influenza , pneumococcal antigen- negative 12/03 sputum culture-E coli 12/03: Bile fluid-Enterococcus faecalis Hematology oncology following INR 1.8-no active signs of bleeding 12/05 HIT panel-negative 12/06 2 units of FFP per hematology recommendations 12/07 transfuse 2 units of platelets 12/08-fibrinogen level Downward trend 392->213-> 165- transfuse 1 unit of cryoprecipitate Monitor CBC Endocrine: Glucose monitoring per ICU protocol -- SSI MSK: PT evaluation and treat Prophylaxis: GI Prophylaxis Famotidine DVT Prophylaxis -- SCDs Heparin 5000 SQ BID (on Hold) in the setting of thrombocytopenia Lines: Central line left IJ placed 12/02. Will d/c central line and place peripheral IV 's, Right femoral Vas-Cath placed 12/05. For vascath change today, d/c Art line. Palliative care is following Level 3 Kassandra Goodwin MD Dec 12, 2016 08:17
[2016-12-12] MEDS: DOCUSATE SODIUM 50 MG/SENNA 8.6 MG TAB PO SCH ×2 (08:18→22:33)
[2016-12-12] MEDS: SODIUM CHLORIDE 0.9% FLUSH 10 ML FLUSH IV FLUSH SCH ×3 (08:19→22:33)
[2016-12-12] MEDS: DILTIAZEM HCL 60 MG TAB PO SCH ×3 (09:03→17:36)
[2016-12-12 12:33] LABS: HEMATOCRIT 21.4 % (35.0-46.0); HEMOGLOBIN 7.1 GM/DL (11.6-15.3)
--- NOTE | 2016-12-12 12:39 | HHI.HCPN ---
Reason for visit a. To assist with evaluation and management of symptoms including: dyspnea, pain, and debility b. To assist medical decision maker(s) with: better understanding of current medical conditions; weighing benefits/burdens of medical treatment options; making medical treatment decisions. . (Kallie Miranda) Subjective/Interval History Patient seen and examined today. Patient remains intubated on mechanical ventilation. The patient opens her eyes spontaneously but does not track, she does blink to threat, she does not follow commands. Slight improvement in leukocytosis today, WBCs down to 28.6 from 37.0 yesterday, hemoglobin low this morning at 7.2 as well as platelet count at 44K. BUN/creatinine remain elevated , slight improvement today, 77/3.91, 3L taken off yesterday during dialysis. Head CT yesterday was negative, chest CT revealed small bibasilar consolidation and bilateral pleural effusions. Family/friend interactions Telephone conference with patient's , clinical update provided. . (Kallie Miranda) Advance Directives Living Will: Copy in medical record Health Care Surrogate: Copy in medical record Durable Power of It Applications Developer: Copy in medical record (Kallie Miranda) Advance Directive Specifics Date completed: 01/04/15 . Health Care Surrogate(s): Marco Antonio Mark () Alternate HCS: Alvin Flores or Pippa Flores . Documented care wishes: Standard living will susie, patient documented she would not want life prolonging measures if she had a terminal condition or was in a persistent vegetative state. . (Kallie Miranda) Objective Vital Signs Date Time Temp Pulse Resp B/P (MAP) Pulse Ox O2 Delivery O2 Flow Rate FiO2 12/12/16 11:21 97 35 12/12/16 08:00 97.7 82 19 151/74 (99) 96 12/12/16 08:00 35 12/12/16 07:25 96 35 12/12/16 06:00 80 161/75 12/12/16 06:00 91 12/12/16 04:00 35 12/12/16 04:00 81 12/12/16 04:00 98 35 12/12/16 04:00 98.2 81 18 143/72 (95) 98 12/12/16 02:00 80 12/12/16 00:09 100 35 12/12/16 00:00 35 12/12/16 00:00 80 12/12/16 00:00 98.8 80 22 123/66 (85) 100 12/11/16 22:00 84 12/11/16 20:02 98 35 12/11/16 20:00 90 12/11/16 20:00 35 12/11/16 20:00 98.7 90 26 133/68 (89) 97 12/11/16 18:00 88 12/11/16 17:00 100 100 12/11/16 16:34 85 12/11/16 16:24 97 35 12/11/16 16:00 98.0 66 18 108/59 (75) 98 12/11/16 16:00 66 12/11/16 16:00 35 12/11/16 15:01 154 129/75 12/11/16 14:00 149 Intake & Output 12/12/16 12/12/16 07:00 19:00 Intake Total 839 ml Output Total 255 ml Balance 584 ml Intake IV Total 257 ml Tube Feeding 522 ml Other 60 ml Output Urine Total 225 ml Drainage Total 30 ml # Bowel Movements 2 . Physical Exam CONSTITUTIONAL/GENERAL: This is a critically ill patient, intubated and mechanically ventilated. TUBES/LINES/DRAINS: ETT, OGT, CVL LIJ, PIV x 1, Left femoral arterial line, right femoral vas cath, soft wrist restraints SKIN: No jaundice, rashes, or lesions. Ecchymoses on upper extremities. Skin temperature appropriate. Large wound on LUE, covered with bandage. Not diaphoretic. CARDIOVASCULAR: Regular rate and rhythm without murmurs, gallops, or rubs. Peripheral pulses symmetric. RESPIRATORY/CHEST: Symmetric, mechanically ventilated. Clear to auscultation. Breath sounds equal bilaterally. No wheezes, rales, or rhonchi. GASTROINTESTINAL: Abdomen soft, nontender, nondistended. Hypoactive bowel sounds present. GENITOURINARY: Without palpable bladder distension. Peterson catheter in place. MUSCULOSKELETAL: Extremities without clubbing, cyanosis. 2+ pitting edema BUE. No mottling or clubbing. NEUROLOGICAL: Opens eyes spontaneously and to verbal stimuli. Blinks to threat, does not track. Does not follow commands. PSYCHIATRIC: Unable to assess secondary to clinical condition. (Ruben,Kallie Lira IRMA) Diagnostic Tests Laboratory Laboratory Tests Test 12/09/16 18:00 12/10/16 05:17 12/11/16 03:45 12/11/16 18:20 Urine Color YELLOW (YELLW/STRAW) Urine Turbidity HAZY (CLEAR) Urine pH 6.5 (5.0-8.5) Urine Specific [place] 1.013 (1.002-1.035) Urine Protein 100 mg/dL (NEG-TRACE) Urine Glucose (UA) 150 mg/dL (NEG) Urine Ketones NEG mg/dL (NEG) Urine Occult Blood MOD (NEG) Urine Nitrite NEG (NEG) Urine Bilirubin NEG (NEG) Urine Urobilinogen LESS THAN 2.0 MG/DL (LESS Urine Leukocyte Esterase NEG (NEG) Urine RBC 14 /hpf (0-3) Urine WBC 28 /hpf (0-5) Urine Squamous Epithelial Cells 4 /hpf (0-5) Urine Transitional Epithelial Cells 5 /hpf (NONE) Urine Amorphous Sediment RARE Urine Bacteria RARE /hpf (NONE) Microscopic Urinalysis Comment CATH-CULTURE IND White Blood Count 33.7 TH/MM3 (4.0-11.0) 37.0 TH/MM3 (4.0-11.0) Red Blood Count 2.78 MIL/MM3 (4.00-5.30) 2.86 MIL/MM3 (4.00-5.30) Hemoglobin 8.3 GM/DL (11.6-15.3) 8.4 GM/DL (11.6-15.3) Hematocrit 25.0 % (35.0-46.0) 25.8 % (35.0-46.0) Mean Corpuscular Volume 89.9 FL (80.0-100.0) 90.2 FL (80.0-100.0) Mean Corpuscular Hemoglobin 29.8 PG (27.0-34.0) 29.5 PG (27.0-34.0) Mean Corpuscular Hemoglobin Concent 33.2 % (32.0-36.0) 32.7 % (32.0-36.0) Red Cell Distribution Width 15.7 % (11.6-17.2) 16.0 % (11.6-17.2) Platelet Count 51 TH/MM3 (150-450) 58 TH/MM3 (150-450) Mean Platelet Volume 10.9 FL (7.0-11.0) 11.0 FL (7.0-11.0) CBC Comment AUTO DIFF AUTO DIFF Differential Total Cells Counted 100 100 Neutrophils % (Manual) 92 % (16-70) 94 % (16-70) Band Neutrophils % 4 % (0-6) 1 % (0-6) Lymphocytes % 2 % (9-44) 1 % (9-44) Monocytes % 2 % (0-8) 2 % (0-8) Neutrophils # (Manual) 32.4 TH/MM3 (1.8-7.7) 35.9 TH/MM3 (1.8-7.7) Nucleated Red Blood Cells 2 /100 WBC (0-0) Differential Comment FINAL DIFF MANUAL FINAL DIFF MANUAL Platelet Estimate LOW (NORMAL) LOW (NORMAL) Platelet Morphology Comment ENLARGED (NORMAL) NORMAL (NORMAL) Keratocytes OCC (NORMAL) Prothrombin Time 14.7 SEC (9.8-11.6) 14.4 SEC (9.8-11.6) Prothromb Time International Ratio 1.3 RATIO 1.3 RATIO Activated Partial Thromboplast Time 29.4 SEC (24.3-30.1) 27.8 SEC (24.3-30.1) Fibrinogen 168 mg/dL (227-377) 137 mg/dL (227-377) Blood Urea Nitrogen 73 MG/DL (7-18) 90 MG/DL (7-18) Creatinine 3.87 MG/DL (0.50-1.00) 4.58 MG/DL (0.50-1.00) Random Glucose 175 MG/DL (74-106) 190 MG/DL (74-106) Total Protein 5.2 GM/DL (6.4-8.2) 5.6 GM/DL (6.4-8.2) Albumin 2.0 GM/DL (3.4-5.0) 2.1 GM/DL (3.4-5.0) Calcium Level 8.2 MG/DL (8.5-10.1) 7.9 MG/DL (8.5-10.1) Alkaline Phosphatase 249 U/L (45-117) 299 U/L (45-117) Aspartate Amino Transf (AST/SGOT) 58 U/L (15-37) 44 U/L (15-37) Alanine Aminotransferase (ALT/SGPT) 71 U/L (10-53) 65 U/L (10-53) Total Bilirubin 3.6 MG/DL (0.2-1.0) 3.7 MG/DL (0.2-1.0) Sodium Level 141 MEQ/L (136-145) 138 MEQ/L (136-145) Potassium Level 4.1 MEQ/L (3.5-5.1) 4.1 MEQ/L (3.5-5.1) Chloride Level 102 MEQ/L (98-107) 101 MEQ/L (98-107) Carbon Dioxide Level 23.6 MEQ/L (21.0-32.0) 22.3 MEQ/L (21.0-32.0) Anion Gap 15 MEQ/L (5-15) 15 MEQ/L (5-15) Estimat Glomerular Filtration Rate 11 ML/MIN (>89) 9 ML/MIN (>89) Metamyelocytes 2 % (0-1) Stool C. difficile Toxin (PCR) NEGATIVE (NEGATIVE) Stl C. difficile Toxin Epiderm 027 PRESUMPTIVE NEGATIVE Test 12/12/16 03:35 12/12/16 11:55 White Blood Count 28.6 TH/MM3 (4.0-11.0) Red Blood Count 2.36 MIL/MM3 (4.00-5.30) Hemoglobin 7.2 GM/DL (11.6-15.3) Hematocrit 21.5 % (35.0-46.0) Mean Corpuscular Volume 90.9 FL (80.0-100.0) Mean Corpuscular Hemoglobin 30.5 PG (27.0-34.0) Mean Corpuscular Hemoglobin Concent 33.6 % (32.0-36.0) Red Cell Distribution Width 15.6 % (11.6-17.2) Platelet Count 44 TH/MM3 (150-450) Mean Platelet Volume 10.7 FL (7.0-11.0) Neutrophils (%) (Auto) 91.3 % (16.0-70.0) Lymphocytes (%) (Auto) 3.9 % (9.0-44.0) Monocytes (%) (Auto) 4.6 % (0.0-8.0) Eosinophils (%) (Auto) 0.0 % (0.0-4.0) Basophils (%) (Auto) 0.2 % (0.0-2.0) Neutrophils # (Auto) 26.2 TH/MM3 (1.8-7.7) Lymphocytes # (Auto) 1.1 TH/MM3 (1.0-4.8) Monocytes # (Auto) 1.3 TH/MM3 (0-0.9) Eosinophils # (Auto) 0.0 TH/MM3 (0-0.4) Basophils # (Auto) 0.0 TH/MM3 (0-0.2) CBC Comment AUTO DIFF Differential Total Cells Counted 100 Neutrophils % (Manual) 88 % (16-70) Band Neutrophils % 3 % (0-6) Lymphocytes % 3 % (9-44) Monocytes % 6 % (0-8) Neutrophils # (Manual) 26.0 TH/MM3 (1.8-7.7) Nucleated Red Blood Cells 2 /100 WBC (0-0) Differential Comment FINAL DIFF MANUAL Platelet Estimate LOW (NORMAL) Platelet Morphology Comment ENLARGED (NORMAL) Basophilic Stippling FAINT (NORMAL) Keratocytes OCC (NORMAL) Blood Urea Nitrogen 77 MG/DL (7-18) Creatinine 3.91 MG/DL (0.50-1.00) Random Glucose 214 MG/DL (74-106) Total Protein 5.8 GM/DL (6.4-8.2) Albumin 2.9 GM/DL (3.4-5.0) Calcium Level 8.1 MG/DL (8.5-10.1) Alkaline Phosphatase 274 U/L (45-117) Aspartate Amino Transf (AST/SGOT) 41 U/L (15-37) Alanine Aminotransferase (ALT/SGPT) 50 U/L (10-53) Total Bilirubin 3.6 MG/DL (0.2-1.0) Sodium Level 139 MEQ/L (136-145) Potassium Level 3.6 MEQ/L (3.5-5.1) Chloride Level 99 MEQ/L (98-107) Carbon Dioxide Level 26.2 MEQ/L (21.0-32.0) Anion Gap 14 MEQ/L (5-15) Estimat Glomerular Filtration Rate 11 ML/MIN (>89) (Ruben,Kallie SOLIS) Result Diagram: 12/12/1633412/12/16334 Microbiology Microbiology Date/Time Source Procedure Growth Status 12/09/16 15:13 Blood Peripheral Aerobic Blood Culture - Preliminary NO GROWTH IN 3 DAYS Resulted 12/09/16 15:13 Blood Peripheral Anaerobic Blood Culture - Preliminary NO GROWTH IN 3 DAYS Resulted 12/09/16 15:08 Blood Peripheral Aerobic Blood Culture - Preliminary NO GROWTH IN 3 DAYS Resulted 12/09/16 15:08 Blood Peripheral Anaerobic Blood Culture - Preliminary NO GROWTH IN 3 DAYS Resulted 12/09/16 15:50 Sputum Endotracheal Gram Stain - Final Resulted 12/09/16 15:50 Sputum Culture - Preliminary Gram Negative Primitivo Resulted 12/09/16 18:00 Urine Catheterized Urine Urine Culture - Final NO GROWTH IN 48 HOURS. Complete Imaging Last [address] 12/11/16 0000 Signed Impressions: Service Date/Time: Sunday, December 11, 2016 17:09 - CONCLUSION: 1. Minimal chronic sinusitis in the sphenoid sinuses bilaterally. 2. Bilateral acute mastoiditis. 3. Otherwise negative. Anatomic detail is somewhat limited due to motion artifact, however. Jamel Johns MD Chest CT 12/11/16 0000 Signed Impressions: Service Date/Time: Sunday, December 11, 2016 17:15 - CONCLUSION: Small bibasilar consolidation and/or compressive collapse and bilateral pleural effusions. Kristen Deleon MD Abdomen/Pelvis CT 12/11/16 0000 Signed Impressions: Service Date/Time: Sunday, December 11, 2016 17:15 - CONCLUSION: 1. Cholecystostomy tube in place with decrease in the amount of hyperdensity within the lumen. 2. Persistent bilateral pleural effusions, stable. Persistent free fluid in the pelvis, slightly decreased. 3. Increase in the amount of induration of the lateral abdominal wall and pelvic subcutaneous tissues an increase swelling of the lateral musculature Nain Mejia [facility] Assessment and Plan Disease Oriented Problem List: (1) Sepsis (2) Metabolic acidosis (3) Acute cholecystitis (4) Respiratory failure Symptom Scale: (1) Dyspnea (2) Debility (3) Pain Pertinent Non-Medical Issues Psychosocial:Patient is originally from [place], [place], she has been to her for 56 years and has two children. 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 She retired in her early 60s when she began spending half of the year between [place] and [place]. Spiritual: Legal: None known. Ethical issues impacting care:None known. Important Contacts Marco Antonio Flores () [phone] . Prognosis Patient has experienced a physical and functional decline over the past two years. She has suffered from chronic back pain due to scoliosis and has recently drank daily heavily to alleviate the pain. The patient was admitted for sepsis followed by respiratory distress requiring intubation, she has continued to decline and has now progressed into multiorgan failure. She is at an increased risk for complications/setbacks due to her advanced age, multiple comorbidities, and current clinical status. . Code Status: Alternative Code Plan * Legal decision maker: Patient does not have the capacity to make her own health care decisions. It is unclear at this time if she will regain the capacity to make her own health care decisions. Documented HCS is patient's Marco Antonio Flores [phone], alternate HCS are Alvin Flores or Pippa Flores. * CODE STATUS:Alternative code, intubation only. * GOALS: Aggressive short of CPR. * SYMPTOM MANAGEMENT: * --pain: Patient at ongoing risk for pain secondary to intubation, mechanical ventilation, and bedbound status. On fentanyl gtt. No recommendations at this time, further recommendations pending hospital course. * --dyspnea: Patient is intubated and mechanically ventilated, duonebs scheduled q 6hr and q 2hr PRN ordered. No recommendations at this time. * --debility: Secondary to current clinical status, mechanical ventilation, bedbound status. PT/OT following and working with the patient. No recommendations at this time. * Palliative care will continue to follow during hospital course as condition evolves, to assist patient/family/decision-maker with understanding of medical conditions, weighing benefit/burdens of treatment options, for clarification of goals of treatment. Additionally will assist with symptoms of palliative concern. (Ruben,Kallie SOLIS) Attestation To help prompt me to consider important information that might be impacting today's encounter and assessment, information from prior notes written by myself or my colleagues may have been "brought forward" into today's note. My signature on this note, however, is an attestation that I personally performed the exam, history, and/or decision-making noted today, and, unless otherwise indicated, the interactions with patient, family, and staff as well as the review of records all occurred today. I also attest that the listed assessment and stated plan reflect my best clinical judgment today based on the combination of historical information, prior notes, and today's exam/ interactions. When time spent is documented, it refers only to time spent today by the signer, or if indicated, combined time spent today by collaborating physician/nurse practitioner. (Kallie Miranda) Collaborating MD Comments Chart reviewed. Case discussed with palliative care ORIENTAL RUG STRETCHER. Above note reviewed and I concur. . (Vijay Miller MD) Kallie Miranda Dec 12, 2016 12:39 Vijay Miller MD Dec 13, 2016 17:22
--- NOTE | 2016-12-12 13:27 | HHI.NPPN ---
Subjective History of Present Illness 71 year old with septic shock, ARF Additional Remarks Patient remain intubated, sedated and clinically same. Objective Data Data Vital Signs Date Time Temp Pulse Resp B/P (MAP) Pulse Ox O2 Delivery O2 Flow Rate FiO2 12/12/16 11:21 97 35 12/12/16 08:00 97.7 82 19 151/74 (99) 96 12/12/16 08:00 35 12/12/16 07:25 96 35 12/12/16 06:00 80 161/75 12/12/16 06:00 91 12/12/16 04:00 35 12/12/16 04:00 81 12/12/16 04:00 98 35 12/12/16 04:00 98.2 81 18 143/72 (95) 98 12/12/16 02:00 80 12/12/16 00:09 100 35 12/12/16 00:00 35 12/12/16 00:00 80 12/12/16 00:00 98.8 80 22 123/66 (85) 100 12/11/16 22:00 84 12/11/16 20:02 98 35 12/11/16 20:00 90 12/11/16 20:00 35 12/11/16 20:00 98.7 90 26 133/68 (89) 97 12/11/16 18:00 88 12/11/16 17:00 100 100 12/11/16 16:34 85 12/11/16 16:24 97 35 12/11/16 16:00 98.0 66 18 108/59 (75) 98 12/11/16 16:00 66 12/11/16 16:00 35 12/11/16 15:01 154 129/75 12/11/16 14:00 149 -: 12/12/16 1155 12/12/16 0335 Physical Exam Neck Neck Exam: Neck Supple Pulmonary Resp Exam: Clear Bilaterally Cardiology CV Exam: Regular Gastrointestinal/Abdomen GI Exam: Soft, Bowel Sounds Present, Non-Distended Integumentary Skin Exam: Clear Extremeties Extremities Exam: Moderate Edema, Pitting Edema, Dependent Edema Assessment/Plan Problem List: (1) Acute kidney injury ICD Codes: N17.9 - Acute kidney failure, unspecified Status: Acute Plan: Patient has septic shock and acute tubular necrosis making small amount of urine, check urine sodium and osmolality and creatinine Continue supportive care Continue to monitor avoid Nephrotoxins. Patient now started on intermittent HD, done yesterday 3 L off need vascath needed as WBC high (2) Acute cholecystitis ICD Codes: K81.0 - Acute cholecystitis Plan: Status post cholecystostomy (3) Sepsis ICD Codes: A41.9 - Sepsis, unspecified organism Status: Acute Plan: On antibiotics Problem Qualifiers (1) Sepsis: Qualified Codes: A41.9 - Sepsis, unspecified organism Myrtle Carlos MD Dec 12, 2016 13:27
--- NOTE | 2016-12-12 14:41 | HHI.GIFU ---
Subjective Remarks Resting in bed. Lightly sedated, but opens eyes to name, not really following commands. Seems to have some mild abdominal discomfort. On CPAP. Objective Vitals I&O Vital Signs Date Time Temp Pulse Resp B/P (MAP) Pulse Ox O2 Delivery O2 Flow Rate FiO2 12/12/16 11:21 97 35 12/12/16 08:00 97.7 82 19 151/74 (99) 96 12/12/16 08:00 35 12/12/16 07:25 96 35 12/12/16 06:00 80 161/75 12/12/16 06:00 91 12/12/16 04:00 35 12/12/16 04:00 81 12/12/16 04:00 98 35 12/12/16 04:00 98.2 81 18 143/72 (95) 98 12/12/16 02:00 80 12/12/16 00:09 100 35 12/12/16 00:00 35 12/12/16 00:00 80 12/12/16 00:00 98.8 80 22 123/66 (85) 100 12/11/16 22:00 84 12/11/16 20:02 98 35 12/11/16 20:00 90 12/11/16 20:00 35 12/11/16 20:00 98.7 90 26 133/68 (89) 97 12/11/16 18:00 88 12/11/16 17:00 100 100 12/11/16 16:34 85 12/11/16 16:24 97 35 12/11/16 16:00 98.0 66 18 108/59 (75) 98 12/11/16 16:00 66 12/11/16 16:00 35 12/11/16 15:01 154 129/75 I/O 12/11/16 12/11/16 12/11/16 12/12/16 12/12/16 12/12/16 07:00 15:00 23:00 07:00 15:00 23:00 Intake Total 341 ml 150 ml 659 ml 839 ml Output Total 175 ml 3000 ml 175 ml 255 ml Balance 166 ml -2850 ml 484 ml 584 ml Intake IV Total 156 ml 150 ml 239 ml 257 ml Tube Feeding 125 ml 300 ml 522 ml Tube Irrigant 120 ml Other 60 ml 60 ml Output Urine Total 150 ml 175 ml 225 ml Drainage Total 25 ml 0 ml 30 ml Hemodialysis 3000 ml # Bowel Movements 0 1 2 Laboratory Laboratory Tests Test 12/11/16 18:20 12/12/16 03:35 12/12/16 11:55 Stool C. difficile Toxin (PCR) NEGATIVE Stl C. difficile Toxin Epiderm 027 PRESUMPTIVE NEGATIVE White Blood Count 28.6 Red Blood Count 2.36 Hemoglobin 7.2 7.1 Hematocrit 21.5 21.4 Mean Corpuscular Volume 90.9 Mean Corpuscular Hemoglobin 30.5 Mean Corpuscular Hemoglobin Concent 33.6 Red Cell Distribution Width 15.6 Platelet Count 44 Mean Platelet Volume 10.7 Neutrophils (%) (Auto) 91.3 Lymphocytes (%) (Auto) 3.9 Monocytes (%) (Auto) 4.6 Eosinophils (%) (Auto) 0.0 Basophils (%) (Auto) 0.2 Neutrophils # (Auto) 26.2 Lymphocytes # (Auto) 1.1 Monocytes # (Auto) 1.3 Eosinophils # (Auto) 0.0 Basophils # (Auto) 0.0 CBC Comment AUTO DIFF Differential Total Cells Counted 100 Neutrophils % (Manual) 88 Band Neutrophils % 3 Lymphocytes % 3 Monocytes % 6 Neutrophils # (Manual) 26.0 Nucleated Red Blood Cells 2 Differential Comment FINAL DIFF MANUAL Platelet Estimate LOW Platelet Morphology Comment ENLARGED Basophilic Stippling FAINT Keratocytes OCC Blood Urea Nitrogen 77 Creatinine 3.91 Random Glucose 214 Total Protein 5.8 Albumin 2.9 Calcium Level 8.1 Alkaline Phosphatase 274 Aspartate Amino Transf (AST/SGOT) 41 Alanine Aminotransferase (ALT/SGPT) 50 Total Bilirubin 3.6 Sodium Level 139 Potassium Level 3.6 Chloride Level 99 Carbon Dioxide Level 26.2 Anion Gap 14 Estimat Glomerular Filtration Rate 11 Date/Time Source Procedure Growth Status 12/09/16 15:13 Blood Peripheral Aerobic Blood Culture - Preliminary NO GROWTH IN 3 DAYS Resulted 12/09/16 15:13 Blood Peripheral Anaerobic Blood Culture - Preliminary NO GROWTH IN 3 DAYS Resulted 12/03/16 14:55 Fluid Bile Fluid Gram Stain - Final Complete 12/03/16 14:55 Body Fluid Culture - Final Enterococcus Faecalis Complete 12/09/16 15:50 Sputum Endotracheal Gram Stain - Final Resulted 12/09/16 15:50 Sputum Culture - Preliminary Gram Negative Primitivo Resulted 12/09/16 18:00 Urine Catheterized Urine Urine Culture - Final NO GROWTH IN 48 HOURS. Complete Imaging Last Impressions Head CT 12/11/16 0000 Signed Impressions: Service Date/Time: Sunday, December 11, 2016 17:09 - CONCLUSION: 1. Minimal chronic sinusitis in the sphenoid sinuses bilaterally. 2. Bilateral acute mastoiditis. 3. Otherwise negative. Anatomic detail is somewhat limited due to motion artifact, however. Jamel Johns MD Chest CT 12/11/16 0000 Signed Impressions: Service Date/Time: Sunday, December 11, 2016 17:15 - CONCLUSION: Small bibasilar consolidation and/or compressive collapse and bilateral pleural effusions. Kristen Deleon MD Abdomen/Pelvis CT 12/11/16 0000 Signed Impressions: Service Date/Time: Sunday, December 11, 2016 17:15 - CONCLUSION: 1. Cholecystostomy tube in place with decrease in the amount of hyperdensity within the lumen. 2. Persistent bilateral pleural effusions, stable. Persistent free fluid in the pelvis, slightly decreased. 3. Increase in the amount of induration of the lateral abdominal wall and pelvic subcutaneous tissues an increase swelling of the lateral musculature Nain Mejia MD Chest X-Ray 12/09/16 0600 Signed Impressions: Service Date/Time: Friday, December 09, 2016 04:06 - CONCLUSION: 1. Interval placement of nasogastric tube. 2. Bibasal opacities remain. Josef Luther MD Abdomen X-Ray 12/09/16 0000 Signed Impressions: Service Date/Time: Friday, December 09, 2016 12:19 - CONCLUSION: OG tube tip in the distal stomach. Fermin Wills MD Abdomen CT 12/08/16 0000 Signed Impressions: Service Date/Time: Thursday, December 08, 2016 17:52 - CONCLUSION: 1. Cholecystostomy tube in good position. Nain Sharma Jr., MD Percutaneous Cholangiogram 12/03/16 0000 Signed Impressions: Service Date/Time: Saturday, December 03, 2016 14:31 - CONCLUSION: Uncomplicated percutaneous cholecystostomy as above. Nain Sharma Jr., MD Liver Ultrasound 12/02/16 0000 Signed Impressions: Service Date/Time: Friday, December 02, 2016 19:12 - CONCLUSION: 1. Cholelithiasis with wall thickening and trace pericholecystic fluid. 2. No evidence of biliary duct distention. 3. No other significant abnormality. Jak Hughes MD Physical Exam GEN: Sedated on vent. HEENT: Normocephalic; atraumatic; no jaundice. CHEST: Resp even/unlabored, OETT to vent. Course breath sounds CARDIAC: RRR ABDOMEN: Soft, mildly distended, cholecystomy tube patent, drsg d/i, bowel sounds are hypoactive EXTREMITIES: Edema BUE, mild edema to ble SKIN: Drsg lue. CASSANDRA DEVELOPER: Sedated on vent. Opens eyes, but not following commands. Assessment and Plan Plan ASSESSMENT: - Cholecystitis. CT scan abdomen and pelvis without iv contrast (12/02/16)---> No evidence of acute abdominal or pelvic process. No masses are identified. Cholelithiasis. Left lower lobe atelectasis versus pneumonia, a large hiatal hernia is present, diverticulosis without evidence of diverticulitis. Liver US (12/02/16)---> Cholelithiasis with wall thickening and trace pericholecystic fluid, no evidence of biliary duct distention, no other significant abnormality. Bacteremia with multiple organisms. GS following, s/p cholecystomy tube 12/03. Zosyn, Levaquin, T. BIli 3.6, AST 41, ALT 50, Alk Phosph 274. Cholecystomy tube patent. - FEN/Malnutrition. Nurse was unable to place OGT (would not advance). Attempt at NGT/Dobbhoff was unsuccessful. S/P EGD with OGT placement (12/07/16)----> Hiatal hernia. Successful OG tube placement. Tolerating TF. Production Sorter recommends Nepro GR 45cc/hr. - Epistaxis. (after attempted Dobbhoff placement) resolved. - Thrombocytopenia, Coagulopathy. S/P 2 units of FFP. HIT negative - Elevated LFTs. No evidence of biliary duct obstruction. No evidence of pancreatitis or dilated ducts on imaging. Unclear if this is all cholecystis, or passed stone, or possible ETOH and cholecystitis. S/P Cholecystomy tube. Hepatitis profile negative, HERBER negative, AMA <20.0, ASMA neg, Iron saturation 2.7%, Ferritin 306, ALpha 1 antitrypsin 209, Ceruloplasmin 32, AFP. LFTs improving- T. BIli 3.6 , AST 41, ALT 50, Alk Phosph 274. - Severe sepsis with multisystem failure. BCx from 12/02/16 grew enterobacter species, klebsiella pneumoniae, escherichia coli, and GNR in the anaerobic bottle. Bile cx Group D Enterococcus. Sputum Cx E. Coli. Rpt urine, sputum, blood culture pending. Zosyn, Levaquin. WBC 28.6. - Anemia. HH 7.1/21.4. - Abdominal pain, nausea, decreased appetite. Likely related to cholecystis. Currently sedated. - ARF with severe electrolyte abnormalities. S/P CVVHD, now transitioned to HD. Next scheduled for tomorrow Per nephrology - Resp. Failure/PNA. CXR LLL atelectasis vs. pna, resolving right basilar atelectasis. Cx E. Coli. On CPAP, pt opens eyes, but not following commands. - Chronic back pain r/t scoliosis. Uses medical marijuana via vaping and takes 4 shots of scotch per day to help with her pain control. Last had these 2 weeks ago. - CAD, Hx HTN, Hyperlipidemia per attending. PLAN: - Nepro 45cc/hr - Abx per ID recommendations - S/P Cholecystomy tube placement by IR (12/03) - Monitor labs - Supportive care - Further recommendations to follow based on results of above - Pt seen and examined by Dr. Andre and myself and this note is written on his behalf Danica Shipley Dec 12, 2016 14:41
--- NOTE | 2016-12-12 14:46 | PD.ONC.PN ---
Subjective Subjective Remarks Afebrile overnight Pt remains intubated and sedated Objective Data Date Time Temp Pulse Resp B/P (MAP) Pulse Ox O2 Delivery O2 Flow Rate FiO2 12/12/16 11:21 97 35 12/12/16 08:00 97.7 82 19 151/74 (99) 96 12/12/16 08:00 35 12/12/16 07:25 96 35 12/12/16 06:00 80 161/75 12/12/16 06:00 91 12/12/16 04:00 35 12/12/16 04:00 81 12/12/16 04:00 98 35 12/12/16 04:00 98.2 81 18 143/72 (95) 98 12/12/16 02:00 80 12/12/16 00:09 100 35 12/12/16 00:00 35 12/12/16 00:00 80 12/12/16 00:00 98.8 80 22 123/66 (85) 100 12/11/16 22:00 84 12/11/16 20:02 98 35 12/11/16 20:00 90 12/11/16 20:00 35 12/11/16 20:00 98.7 90 26 133/68 (89) 97 12/11/16 18:00 88 12/11/16 17:00 100 100 12/11/16 16:34 85 12/11/16 16:24 97 35 12/11/16 16:00 98.0 66 18 108/59 (75) 98 12/11/16 16:00 66 12/11/16 16:00 35 12/11/16 15:01 154 129/75 12/12/16 12/12/16 12/12/16 07:00 15:00 23:00 Intake Total 839 ml Output Total 255 ml Balance 584 ml Result Diagram: 12/12/16 1155 12/12/16 0335 Laboratory Results Laboratory Tests Test 12/11/16 18:20 12/12/16 03:35 12/12/16 11:55 Stool C. difficile Toxin (PCR) NEGATIVE Stl C. difficile Toxin Epiderm 027 PRESUMPTIVE NEGATIVE White Blood Count 28.6 TH/MM3 Red Blood Count 2.36 MIL/MM3 Hemoglobin 7.2 GM/DL 7.1 GM/DL Hematocrit 21.5 % 21.4 % Mean Corpuscular Volume 90.9 FL Mean Corpuscular Hemoglobin 30.5 PG Mean Corpuscular Hemoglobin Concent 33.6 % Red Cell Distribution Width 15.6 % Platelet Count 44 TH/MM3 Mean Platelet Volume 10.7 FL Neutrophils (%) (Auto) 91.3 % Lymphocytes (%) (Auto) 3.9 % Monocytes (%) (Auto) 4.6 % Eosinophils (%) (Auto) 0.0 % Basophils (%) (Auto) 0.2 % Neutrophils # (Auto) 26.2 TH/MM3 Lymphocytes # (Auto) 1.1 TH/MM3 Monocytes # (Auto) 1.3 TH/MM3 Eosinophils # (Auto) 0.0 TH/MM3 Basophils # (Auto) 0.0 TH/MM3 CBC Comment AUTO DIFF Differential Total Cells Counted 100 Neutrophils % (Manual) 88 % Band Neutrophils % 3 % Lymphocytes % 3 % Monocytes % 6 % Neutrophils # (Manual) 26.0 TH/MM3 Nucleated Red Blood Cells 2 /100 WBC Differential Comment FINAL DIFF MANUAL Platelet Estimate LOW Platelet Morphology Comment ENLARGED Basophilic Stippling FAINT Keratocytes OCC Blood Urea Nitrogen 77 MG/DL Creatinine 3.91 MG/DL Random Glucose 214 MG/DL Total Protein 5.8 GM/DL Albumin 2.9 GM/DL Calcium Level 8.1 MG/DL Alkaline Phosphatase 274 U/L Aspartate Amino Transf (AST/SGOT) 41 U/L Alanine Aminotransferase (ALT/SGPT) 50 U/L Total Bilirubin 3.6 MG/DL Sodium Level 139 MEQ/L Potassium Level 3.6 MEQ/L Chloride Level 99 MEQ/L Carbon Dioxide Level 26.2 MEQ/L Anion Gap 14 MEQ/L Estimat Glomerular Filtration Rate 11 ML/MIN Culture Results Microbiology Date/Time Source Procedure Growth Status 12/09/16 15:13 Blood Peripheral Aerobic Blood Culture - Preliminary NO GROWTH IN 3 DAYS Resulted 12/09/16 15:13 Blood Peripheral Anaerobic Blood Culture - Preliminary NO GROWTH IN 3 DAYS Resulted 12/09/16 15:08 Blood Peripheral Aerobic Blood Culture - Preliminary NO GROWTH IN 3 DAYS Resulted 12/09/16 15:08 Blood Peripheral Anaerobic Blood Culture - Preliminary NO GROWTH IN 3 DAYS Resulted 12/09/16 15:50 Sputum Endotracheal Gram Stain - Final Resulted 12/09/16 15:50 Sputum Culture - Preliminary Gram Negative Primitivo Resulted 12/09/16 18:00 Urine Catheterized Urine Urine Culture - Final NO GROWTH IN 48 HOURS. Complete Administered Medications Medications (Trade) Dose Ordered Sig/Dhruv Route PRN Reason Start Time Stop Time Status Last Admin Dose Admin Sodium Chloride (NS Flush) 2 ml UNSCH PRN IV FLUSH FLUSH AFTER USING IV ACCESS 12/02/16 16:15 12/06/16 20:52 Sodium Chloride (NS Flush) 2 ml BID IV FLUSH 12/02/16 21:00 12/12/16 08:19 Famotidine (Pepcid Inj) 20 mg DAILY IV PUSH 12/02/16 21:00 12/12/16 08:17 Heparin Sodium (Porcine) (Heparin Inj) 5,000 units Q12H SQ 12/02/16 17:00 Future Hold 12/04/16 04:28 Miscellaneous Information 1 [id number] XX 12/02/16 16:15 12/02/16 16:15 Chlorhexidine Gluconate (Chlorhexidine 2% Cloth) Taper DAILY@04 TOP 12/03/16 04:00 11/29/17 03:59 12/07/16 04:00 Senna/Docusate Sodium (Keely-Colace) 1 tab BID PO 12/02/16 21:00 12/11/16 21:00 Insulin Human Regular (NovoLIN R SUPPLEMENTAL SCALE) 1 ACHS SLIDING SCALE SQ 12/02/16 17:00 12/12/16 12:13 Lorazepam (Ativan Inj) 1 mg Q4H PRN IV PUSH ANXIETY 12/02/16 16:45 12/09/16 10:20 Chlorhexidine Gluconate (Peridex 0.12% Liq) 15 ml BID@08,20 MT 12/03/16 08:00 12/12/16 08:00 Fentanyl Citrate 250 ml @ 5 mls/hr TITRATE PRN IV SEDATION 12/02/16 22:15 12/11/16 03:55 Norepinephrine Bitartrate 4 mg/ Sodium Chloride 250 ml @ 7.5 mls/hr TITRATE PRN IV Blood pressure management 12/02/16 22:15 12/06/16 04:34 Sodium Chloride (NS Flush) DAILY IV FLUSH 12/03/16 09:00 12/12/16 08:19 Sodium Chloride (NS Flush) UNSCH PRN IV FLUSH SEE PROTOCOL 12/02/16 23:15 12/06/16 20:52 Hydrocortisone Sodium Succinate (SoluCORTEF INJ) 100 mg Q8H IV PUSH 12/03/16 09:00 12/12/16 08:18 Artificial Tears (Tears Naturale Opth Soln) 1 drop Q8HR PRN EACH EYE DRY EYE 12/03/16 08:15 12/04/16 17:22 Phenylephrine HCl 80 mg/Dextrose 500 ml @ 15 mls/hr TITRATE PRN IV Blood pressure Management 12/03/16 17:15 12/06/16 04:35 Sodium Chloride 1,000 ml @ 0 mls/hr UNSCH PRN OTHER SEE LABEL COMMENTS 12/05/16 17:30 12/07/16 02:14 Sodium Chloride 1,000 ml @ 0 mls/hr Q0M PRN OTHER For Prime & Rinse Back 12/07/16 10:56 12/08/16 12:21 Albumin Human 100 ml @ 60 mls/hr UNSCH PRN IV WITH DIALYSIS 12/07/16 11:00 12/11/16 09:05 Gentamicin Sulfate (Gentamicin (Dialysis) Inj) 20 mg UNSCH PRN OTHER WITH DIALYSIS 12/07/16 11:00 12/11/16 08:47 Epoetin Ronald (Epogen Inj) 10,000 units UNSCH PRN IV PUSH WITH DIALYSIS 12/07/16 11:00 12/11/16 08:47 Piperacillin Sod/ Tazobactam Sod 50 ml @ 100 mls/hr Q6H IV 12/07/16 17:00 12/12/16 11:55 Levofloxacin/ Dextrose 100 ml @ 100 mls/hr Q48H IV 12/07/16 16:00 12/11/16 16:00 Diltiazem HCl 125 mg/Sodium Chloride 125 ml @ 15 mls/hr TITRATE PRN IV Tachycardia 12/11/16 15:00 12/11/16 15:01 Diltiazem HCl (Cardizem) 60 mg Q6HR PO 12/12/16 08:15 12/12/16 12:14 Objective Remarks GENERAL: Intubated, sedated female lying supine in bed in no acute distress. SKIN: Warm and dry. Left forearm with bandages in place, no bleeding. small amount of clear yellow weeping/drainage. HEAD: Normocephalic. EYES: No injection or drainage. NECK: Supple, trachea midline. CARDIOVASCULAR: Regular rate and rhythm RESPIRATORY: Mechanically ventilated. GASTROINTESTINAL: Abdomen mildly distended. EXTREMITIES: No cyanosis NEUROLOGICAL: intubated, sleeping Assessment/Plan Problem List: (1) Pancytopenia ICD Codes: D61.818 - Other pancytopenia Plan: 12/12: Pt noted to have a slowly decreasing Hgb. Order placed for 1 unit PRBC's with whole picture of thrombocytopenia and low-normal fibrinogen. Obtain stool for occult blood. --due to bone marrow suppression from sepsis. --expect her pancytopenia to get worse in the next several days if sepsis is not under control. --monitor her CBC closely and provide blood product support as needed. (2) Sepsis ICD Codes: A41.9 - Sepsis, unspecified organism Status: Acute (3) Acute kidney injury ICD Codes: N17.9 - Acute kidney failure, unspecified Status: Acute Plan: --receiving HD on Assessment 71 y/o female with coagulopathy d/t sepsis. Attending Statement on vent, sedated. H/H droping PRBC plat are low sepsis The exam, history, and the medical decision-making described in the above note were completed with the assistance of the mid-level provider. I reviewed and agree with the findings presented. I attest that I had a [id number] encounter with the patient on the same day, and personally performed and documented my assessment and findings in the medical record. Problem Qualifiers (1) Sepsis: Qualified Codes: A41.9 - Sepsis, unspecified organism Maddison Bustamante Dec 12, 2016 14:46 Lana Justice MD Dec 12, 2016 17:38
--- NOTE | 2016-12-12 15:36 | PD.WCN.NOT ---
Wound Consult Description: Consult placed for Wound Management of left forearm skin tear per reji Bill. Communicated with: JERAMY Srivastava Recommendation: Gently cleanse left forearm skin tear every 3 days and PRN Apply Optilock over wound bed and secure with rolled gauze. Additional Information: Patient seen on [facility] for left forearm skin tear. Skin tear measures 4cm x 3.5cm x 0.1cm with top layer of skin pushed to left side of wound margin giving this wound a kay shape. Wound bed is noted with ~70% yellow tissue and ~30% red non granulating tissue without active drainage and without odor. Periwound is noted with discoloration from previous underlying tissue having sanguinous drainage. Patient is edematous and weeping from extremities. Wound was cleansed with NS and gauze. Optilock was placed over wound bed and may remain in place for up to 3 days unless soiled or dislodged. Rebecca Fernando [facility] Dec 12, 2016 15:36
--- NOTE | 2016-12-12 15:36 | PD.WCN.NOT ---
Wound Consult Description: Consult placed for Wound Management of left forearm skin tear per reji Bill. Communicated with: JERAMY Srivastava Recommendation: Gently cleanse left forearm skin tear every 3 days and PRN Apply Optilock over wound bed and secure with rolled gauze. Additional Information: Patient seen on [facility] for left forearm skin tear. Skin tear measures 4cm x 3.5cm x 0.1cm with top layer of skin pushed to left side of wound margin giving this wound a kay shape. Wound bed is noted with ~70% yellow tissue and ~30% red non granulating tissue without active drainage and without odor. Periwound is noted with discoloration from previous underlying tissue having sanguinous drainage. Patient is edematous and weeping from extremities. Wound was cleansed with NS and gauze. Optilock was placed over wound bed and may remain in place for up to 3 days unless soiled or dislodged. Rebecca Fernando [facility] Dec 12, 2016 15:36
--- NOTE | 2016-12-12 15:36 | PD.WCN.NOT ---
Wound Consult Description: Consult placed for Wound Management of left forearm skin tear per reji Bill. Communicated with: JERAMY Srivastava Recommendation: Gently cleanse left forearm skin tear every 3 days and PRN Apply Optilock over wound bed and secure with rolled gauze. Additional Information: Patient seen on [facility] for left forearm skin tear. Skin tear measures 4cm x 3.5cm x 0.1cm with top layer of skin pushed to left side of wound margin giving this wound a kay shape. Wound bed is noted with ~70% yellow tissue and ~30% red non granulating tissue without active drainage and without odor. Periwound is noted with discoloration from previous underlying tissue having sanguinous drainage. Patient is edematous and weeping from extremities. Wound was cleansed with NS and gauze. Optilock was placed over wound bed and may remain in place for up to 3 days unless soiled or dislodged. Rebecca Fernando [facility] Dec 12, 2016 15:36
[2016-12-12] MEDS: SODIUM CHLORIDE 0.9% FLUSH 10 ML FLUSH IV FLUSH PRN (22:33)
[2016-12-13] VITALS (21 sets, daily range): BP systolic 138–157; BP diastolic 63–78; PULSE 66–83; RESP 18–25; TEMP 97.2–98.4; O2SAT 96–100
[2016-12-13] MEDS: HYDROCORTISONE SOD SUCCINATE 100 MG VIAL IV PUSH SCH ×3 (00:10→20:42)
[2016-12-13] MEDS: DILTIAZEM HCL 60 MG TAB PO SCH ×5 (00:10→23:48)
[2016-12-13 00:33] LABS: HEMATOCRIT 24.8 % (35.0-46.0); HEMOGLOBIN 8.3 GM/DL (11.6-15.3)
[2016-12-13] MEDS: fentaNYL DRIP 250 ML IV PRN (00:51)
[2016-12-13] MEDS: CHLORHEXIDINE GLUCONATE 2 % 1 PACK (2 CLOTHS) TOP SCH (04:00)
[2016-12-13] MEDS: PIPERACIL-TAZO 2.25 GM PREMIX 50 ML IV SCH ×4 (05:30→23:48)
[2016-12-13 06:00] LABS: BASOPHIL % 0.1 % (0.0-2.0); HEMATOCRIT 23.2 % (35.0-46.0); LYMPH % 1.8 % (9.0-44.0); LYMPHOCYTE # 0.5 TH/MM3 (1.0-4.8); MEAN CELL VOLUME 88.9 FL (80.0-100.0); MEAN CORPUSCULAR HEMOGLOBIN 30.7 PG (27.0-34.0); MEAN CORPUSCULAR HGB CONC 34.5 % (32.0-36.0); MEAN PLATELET VOLUME 10.3 FL (7.0-11.0); MONO % 3.8 % (0.0-8.0); NEUT % 94.3 % (16.0-70.0); PLATELET COUNT 42 TH/MM3 (150-450); RED BLOOD COUNT 2.61 MIL/MM3 (4.00-5.30); WHITE BLOOD COUNT 25.5 TH/MM3 (4.0-11.0)
[2016-12-13 06:29] LABS: ALBUMIN 2.4 GM/DL (3.4-5.0); ALKALINE PHOSPHATASE 269 U/L (45-117); ALT (GPT) 48 U/L (10-53); AST (GOT) 38 U/L (15-37); BICARBONATE 23.3 MEQ/L (21.0-32.0); BLOOD UREA NITROGEN 96 MG/DL (7-18); CALCIUM 8.3 MG/DL (8.5-10.1); CHLORIDE 99 MEQ/L (98-107); GLOMERULAR FILTRATION RATE 10 ML/MIN (>89); GLUCOSE,RANDOM 194 MG/DL (74-106); SODIUM (NA) 139 MEQ/L (136-145); TOTAL PROTEIN 5.4 GM/DL (6.4-8.2)
[2016-12-13] MEDS: DOCUSATE SODIUM 50 MG/SENNA 8.6 MG TAB PO SCH ×2 (08:00→20:43)
[2016-12-13 08:03] LABS: BANDS 2 % (0-6); CORRECTED NUCLEATED RBC 1 /100 WBC (0-0); LYMPHOCYTES 6 % (9-44); METAMYELOCYTES 1 % (0-1); MONOCYTES 5 % (0-8); NEUTROPHIL # MANUAL DIFF 22.7 TH/MM3 (1.8-7.7); NUCLEATED RED BLOOD CELL 1 (0-0); POLYS (SEG NEUTROPHILS) 86 % (16-70)
--- NOTE | 2016-12-13 09:15 | HHI.CCPN ---
Subjective Remarks/Hospital Course This is a 71-year-old female presents to the ED via EMS for evaluation of fever , shortness breath, vomiting, diarrhea, abdominal pain She reports that she's been short of breath for the past 2 weeks, but has progressed in the past 2 days. Patient has been seeing a producer director for her shortness of breath, is not on home oxygen. The patient reported she has a history of smoking. She is also complaining of abdominal pain that started 2 days ago with vomiting and diarrhea. Patient has severe tenderness to mild palpation. She has history of KS. She received 500 mL normal saline IV bolus, and Zofran 4 mg IV. Critical care medicine was consulted. Subjective: 12/03: Tmax 100.9. Last evening the patient was noted to have significant respiratory decompensation with requirement for emergent intubation. The patient subsequently became hemodynamically unstable requiring vasopressor support. Patient is lightly sedated, and continues to have abdominal pain, and hypoactive bowel sounds, GI has been consulted. HIDA scan previously scheduled for this morning, after discussion with Dr Goodrich , plan for cholecystostomy tube placement by IR. Ultrasound liver showed no biliary duct distention but notable thickened gallbladder wall. 12/04: Tmax 100.4. Patient continues with severe metabolic acidosis, sodium bicarbonate infusion increased to 150 cc/hour yesterday afternoon. Antibiotics were expanded yesterday with addition of Micafungin and Diflucan. Blood cultures resulted with Enterobacter, Klebsiella pneumoniae and Escherichia coli. ID consulted recommendations appreciated. Patient is status post placement of percutaneous cholecystostomy tube . Patient now icteric, but LFTs are trending down. Records obtained from primary care physician with cardiology reports from earlier in the year, patient with noted pulmonary hypertension and NYHA class III. In-hospital echo pending. Patient continues on 3 pressors to maintain blood pressure. 12/05: Patient has been weaned off of vasopressor continues on to agents Gurinder- Synephrine, norepinephrine at low doses. Patient noted to still be thrombocytopenic platelet count decreased today HIT panel pending. INR remains elevated no active signs of bleeding liver function enzymes remain elevated. No urine output over the last 12 hours nephrology following discussion with for possible hemodialysis, will await nephrology recommendations. Sodium bicarbonate infusion discontinued. Patient remains alert GCS 11 T. 12/06: Afebrile. The patient continues on CRRT initiated last night, tolerating it well patient continues only on phenylephrine infusion to maintain MAP. The patient received 2 units of FFP per hematology/oncology recommendations. Plan for evaluation and placement for NG tube placement accountant assistant. 12/07: Afebrile. Vasopressors discontinued at 4 AM, CRRT completed, patient will be transitioned to IHD 2 times a week. Patient was noted to be severely thrombocytopenic platelet count 32 ,plan for transfusions of platelets, fibrinogen level decreasing. Bile specimen noted to result Enterococcus faecalis, contacted Dr. Portillo general surgery updated him discussion regarding elective versus semielective laparoscopic cholecystectomy ,informed that no surgical intervention indicated at this time. Cholecystostomy tube continues to drain. 12/08: Afebrile. The patient has been transitioned to IHD 2 times a week. 3 L removal of fluid today. The patient remains hemodynamically stable off of all vasopressors greater than 24 hours at this time. A chin continues to have persistent leukocytosis with elevation in WBC count and downward trend up fibrinogen level . Cholecystostomy tube low output, CT scan abdomen pending. General surgery reconsulted to review surgical options for patient. 12/09 Patient is sedated with Fentanyl and intubated. s/p HD yesterday with removal 3L. NPO for possible OR today. 12/10 No events overnight. Sedated with Fentanyl and intubated. Afebrile. 12/11 Patient remains intubated and sedated with Fentanyl. Tolerated CPAP trials for 4 hrs yesterday. For HD today. Afebrile however her WBC increased 37 from 33. Moves spontaneously but does not follow commands. 12/12 Patient went into afib with RVR placed on Cardizem drip now at 5mg/hr on CPAP with PS 10, PEEP:5 and FIO2 35%. Afebrile. WBC is trending down. 12/13 No events overnight. For HD today. s/p transfusion 1unit PRBC yesterday. Afebrile. Seems more alert today. Objective Vital Signs Date Time Temp Pulse Resp B/P (MAP) Pulse Ox O2 Delivery O2 Flow Rate FiO2 12/13/16 07:34 99 35 12/13/16 07:00 66 12/13/16 04:00 98.4 19 157/78 (104) Intake and Output 12/13/16 12/13/16 12/14/16 08:00 16:00 00:00 Intake Total 1029 ml Output Total 350 ml Balance 679 ml Result Diagram: 12/13/16 0515 12/13/16 0515 Other Results Laboratory Tests Test 12/12/16 11:55 12/13/16 00:00 12/13/16 05:15 Hemoglobin 7.1 GM/DL 8.3 GM/DL 8.0 GM/DL Hematocrit 21.4 % 24.8 % 23.2 % White Blood Count 25.5 TH/MM3 Red Blood Count 2.61 MIL/MM3 Mean Corpuscular Volume 88.9 FL Mean Corpuscular Hemoglobin 30.7 PG Mean Corpuscular Hemoglobin Concent 34.5 % Red Cell Distribution Width 16.0 % Platelet Count 42 TH/MM3 Mean Platelet Volume 10.3 FL Neutrophils (%) (Auto) 94.3 % Lymphocytes (%) (Auto) 1.8 % Monocytes (%) (Auto) 3.8 % Eosinophils (%) (Auto) 0.0 % Basophils (%) (Auto) 0.1 % Neutrophils # (Auto) 24.0 TH/MM3 Lymphocytes # (Auto) 0.5 TH/MM3 Monocytes # (Auto) 1.0 TH/MM3 Eosinophils # (Auto) 0.0 TH/MM3 Basophils # (Auto) 0.0 TH/MM3 CBC Comment AUTO DIFF Differential Total Cells Counted 100 Neutrophils % (Manual) 86 % Band Neutrophils % 2 % Lymphocytes % 6 % Monocytes % 5 % Neutrophils # (Manual) 22.7 TH/MM3 Metamyelocytes 1 % Nucleated Red Blood Cells 1 /100 WBC Differential Comment FINAL DIFF MANUAL Platelet Estimate LOW Platelet Morphology Comment NORMAL Blood Urea Nitrogen 96 MG/DL Creatinine 4.50 MG/DL Random Glucose 194 MG/DL Total Protein 5.4 GM/DL Albumin 2.4 GM/DL Calcium Level 8.3 MG/DL Alkaline Phosphatase 269 U/L Aspartate Amino Transf (AST/SGOT) 38 U/L Alanine Aminotransferase (ALT/SGPT) 48 U/L Total Bilirubin 3.0 MG/DL Sodium Level 139 MEQ/L Potassium Level 3.3 MEQ/L Chloride Level 99 MEQ/L Carbon Dioxide Level 23.3 MEQ/L Anion Gap 17 MEQ/L Estimat Glomerular Filtration Rate 10 ML/MIN Imaging Last Impressions Head CT 12/11/16 0000 Signed Impressions: Service Date/Time: Sunday, December 11, 2016 17:09 - CONCLUSION: 1. Minimal chronic sinusitis in the sphenoid sinuses bilaterally. 2. Bilateral acute mastoiditis. 3. Otherwise negative. Anatomic detail is somewhat limited due to motion artifact, however. Jamel Johns MD Chest CT 12/11/16 0000 Signed Impressions: Service Date/Time: Sunday, December 11, 2016 17:15 - CONCLUSION: Small bibasilar consolidation and/or compressive collapse and bilateral pleural effusions. Kristen Deleon MD Abdomen/Pelvis CT 12/11/16 0000 Signed Impressions: Service Date/Time: Sunday, December 11, 2016 17:15 - CONCLUSION: 1. Cholecystostomy tube in place with decrease in the amount of hyperdensity within the lumen. 2. Persistent bilateral pleural effusions, stable. Persistent free fluid in the pelvis, slightly decreased. 3. Increase in the amount of induration of the lateral abdominal wall and pelvic subcutaneous tissues an increase swelling of the lateral musculature Nain Mejia MD Chest X-Ray 12/09/16 0600 Signed Impressions: Service Date/Time: Friday, December 09, 2016 04:06 - CONCLUSION: 1. Interval placement of nasogastric tube. 2. Bibasal opacities remain. Josef Luther MD Abdomen X-Ray 12/09/16 0000 Signed Impressions: Service Date/Time: Friday, December 09, 2016 12:19 - CONCLUSION: OG tube tip in the distal stomach. Fermin Wills MD Abdomen CT 12/08/16 0000 Signed Impressions: Service Date/Time: Thursday, December 08, 2016 17:52 - CONCLUSION: 1. Cholecystostomy tube in good position. Nain Sharma Jr., MD Percutaneous Cholangiogram 12/03/16 0000 Signed Impressions: Service Date/Time: Saturday, December 03, 2016 14:31 - CONCLUSION: Uncomplicated percutaneous cholecystostomy as above. Nain Sharma Jr., MD Liver Ultrasound 12/02/16 0000 Signed Impressions: Service Date/Time: Friday, December 02, 2016 19:12 - CONCLUSION: 1. Cholelithiasis with wall thickening and trace pericholecystic fluid. 2. No evidence of biliary duct distention. 3. No other significant abnormality. Jak Hughes MD Objective Remarks GENERAL: Critically ill appearing appropriately stated age female intubated and mild sedation SKIN: Warm and dry. HEAD: Atraumatic. Normocephalic. EYES: Pupils equal and round. Mild scleral icterus, decreasing. No injection or drainage. Extraocular movements intact ENT: No nasal bleeding or discharge. Mucous membranes pink and moist. Orotracheally intubated NECK: Trachea midline. No JVD. CARDIOVASCULAR: Normal rate, regular rhythm. RESPIRATORY: No accessory muscle use. Clear to auscultation. Breath sounds equal bilaterally. GASTROINTESTINAL: Abdomen soft,nondistended, tender to palpation. No guarding. MUSCULOSKELETAL: Extremities without clubbing, cyanosis, or edema. No obvious deformities. Right groin Vas-Cath site soft no erythema/drainage NEUROLOGICAL: Awake, Procedures 12/02-abdominal ultrasound 12/03- percutaneous cholecystostomy tube placement 12/05-patient of CRRT, completion 12/07 12/08-initiation of IHD Date of Insertion: Dec 02, 2016 Line: Central Venous Catheter Side: Left Location: Femoral A/P Assessment and Plan ASSESSMENT Abdominal pain Hiatal hernia Diverticulitis Cholelithiasis with cholecystitis Transaminitis Nausea Hyperlipidemia Hypertension History of [place] Coronary artery disease-S/P angioplasty 2 History of systolic CHF Acute hypoxemic respiratory failure Probable community-acquired pneumonia Hypokalemia Alcohol use disorder Elevated creatinine Pancytopenia Transaminitis Acute renal failure Multisystem organ failure secondary to septic shock Acute decompensated systolic heart failure Coagulopathy Bandemia Persistent leukocytosis Critical illness polyneuropathy PLAN Neurologic: Neurochecks per ICU protocol Fentanyl infusion for ventilator synchrony- Daily sedation vacation. CT brain: Minimal chronic sinusitis in the sphenoid sinuses bilaterally. Bilateral acute mastoiditis. Otherwise negative For EEG today Monitor for signs of alcohol withdrawal Seizure precautions s/p folate and MVI. Thiamine 100mg daily Respiratory: Continue with vent support keep sat >92% Bronchodilators 36 hours scheduled, every 2 hours PRN 12/02-intubation 7.5 ETT Ventilator bundle. SBT daily as arti. CT chest: Small bibasilar consolidation Cardiovascular: On PO Cardizem 60mg Q6-Monitor HR and BP keep MAP>65mmHg Taper steroids- Decrease HC 50mg Q6 Initial troponin 0.07->0.11->0.49. Possibly secondary to acute Kidney injury, and low-flow cardiac output state 12/04 echo results-EF 50% Patient's being seen regularly by trust manager assistant in [place] Shanda MD [phone] Echo 10/03/15 per cardiology medical records([place])-normal LV function,EF 56%, mild septal LVH, mild TR, mild PAH Patient's home meds include ASA 81mg, Metoprolol 50 mg ER (recently discontinued secondary to hypotension by trust manager assistant 3 weeks ago) will not restart secondary to hemodynamic instability, Rosvustatin at this time will not continue secondary to elevated LFT's continue to trend. NYHA classification III-per previous records Renal Monitor renal function, I/O's, avoid nephrotoxins. s/p HD 12/11 witj 3L removal. For HD today. Nephrology following-Dr. Carlos, 12/05 initiation of CRRT 12/08 initiation of IHD-schedule per nephrology FEN/GI: Tube feeds with-Nepro @45ml/hr CT abd/pelvis: Cholecystostomy tube in place with decrease in the amount of hyperdensity within the lumen.. Persistent bilateral pleural effusions, stable. Persistent free fluid in the pelvis, slightly decreased. Increase in the amount of induration of the lateral abdominal wall and pelvic subcutaneous tissues an increase swelling of the lateral musculature GI and surgery are following. Discussed with Dr. [place] yesterday. 12/02 CT abdomen pelvis-diverticulosis without diverticulitis, large hiatal hernia, cholelithiasis, no acute process ultrasound abdomen-no biliary duct dilatation, cholelithiasis with cholecystitis trace pericholecystic fluid 12/03- percutaneous cholecystostomy drain placement percutaneous cholecystostomy draining (Bile- Enterococcus faecalis)- monitor drainage 12/[address] Pathak bile fluid-Enterococcus faecalis-no surgical intervention at this time, plan for tentative semi-elective versus elective cholecystectomy in the future 12/08 general surgery reconsulted to review surgical options-vasopressor pressor support is not required, patient remains with elevated leukocytosis, will follow up recommendations Hold statin in the setting of elevated LFTs 12/07 CRRT discontinued patient will begin IHD 2 times a week Heme/ID: ID is following-Dr. Ramos, abx per ID (Zosyn, Levaquin)WBC is trending down 12/09 Sputum cx: S. Maltophilia, Mold species. Follow up on sputum cx from 12/12 12/09 Pancultured- BC, Urine-NGTD 12/03 blood cultures-Enterobacter, Klebsiella pneumoniae, Escherichia coli 12/03 Legionella, influenza , pneumococcal antigen- negative 12/03 sputum culture-E coli 12/03: Bile fluid-Enterococcus faecalis Hematology oncology following 12/05 HIT panel-negative 12/06 2 units of FFP per hematology recommendations 12/07 transfuse 2 units of platelets 12/08-fibrinogen level Downward trend 392->213-> 165- transfuse 1 unit of cryoprecipitate Monitor CBC, s/p transfusion 1unit PRBC 12/12 Endocrine: Glucose monitoring per ICU protocol -- SSI MSK: PT evaluation and treat Prophylaxis: GI Prophylaxis Famotidine DVT Prophylaxis -- SCDs Heparin 5000 SQ BID (on Hold) in the setting of thrombocytopenia Lines: Central line left IJ placed 12/02. Right femoral Vas-Cath placed 12/05. For vascath change today, Palliative care is following Level 3 Kassandra Goodwin MD Dec 13, 2016 09:14
--- NOTE | 2016-12-13 11:02 | HHI.NPPN ---
Subjective History of Present Illness 71 year old with septic shock, ARF Additional Remarks Patient remain intubated, sedated and clinically same. Objective Data Data Vital Signs Date Time Temp Pulse Resp B/P (MAP) Pulse Ox O2 Delivery O2 Flow Rate FiO2 12/13/16 09:54 99 35 12/13/16 08:00 35 12/13/16 08:00 97.5 75 18 156/77 (103) 98 12/13/16 07:34 99 35 12/13/16 07:00 66 12/13/16 06:00 80 12/13/16 04:05 99 35 12/13/16 04:00 35 12/13/16 04:00 75 12/13/16 04:00 98.4 75 19 157/78 (104) 97 12/13/16 02:00 79 12/13/16 00:04 96 35 12/13/16 00:00 79 12/13/16 00:00 35 12/13/16 00:00 98.2 79 25 154/76 (102) 99 12/12/16 22:00 77 12/12/16 22:00 77 19 149/72 (97) 99 12/12/16 20:26 98 35 12/12/16 20:00 79 12/12/16 20:00 98.0 79 18 144/71 (95) 98 12/12/16 20:00 35 12/12/16 18:25 96.7 78 21 139/68 97 12/12/16 18:00 79 12/12/16 17:57 97.3 79 25 152/70 97 12/12/16 16:00 96.3 80 17 134/69 (90) 97 12/12/16 16:00 80 12/12/16 16:00 35 12/12/16 14:45 99 35 12/12/16 14:00 75 12/12/16 12:00 79 12/12/16 12:00 35 12/12/16 12:00 96.7 79 23 148/70 (96) 97 12/12/16 11:21 97 35 -: 12/13/16 0515 12/13/16 0515 Microbiology 12/12/16 Gram Stain - Final, Resulted 12/12/16 Sputum Culture, Resulted Pending Physical Exam Neck Neck Exam: Neck Supple Pulmonary Resp Exam: Clear Bilaterally Cardiology CV Exam: Regular Gastrointestinal/Abdomen GI Exam: Soft, Bowel Sounds Present, Non-Distended Integumentary Skin Exam: Clear Extremeties Extremities Exam: Pitting Edema, Dependent Edema Assessment/Plan Problem List: (1) Acute kidney injury ICD Codes: N17.9 - Acute kidney failure, unspecified Status: Acute Plan: Patient has septic shock and acute tubular necrosis making small amount of urine, Continue supportive care Continue to monitor avoid Nephrotoxins. Patient now started on intermittent HD, seen during dialysis, UF 2 L, BP low, Vascath, needs to be replaced she has Anasarca (2) Acute cholecystitis ICD Codes: K81.0 - Acute cholecystitis Plan: Status post cholecystostomy (3) Sepsis ICD Codes: A41.9 - Sepsis, unspecified organism Status: Acute Plan: On antibiotics Problem Qualifiers (1) Sepsis: Qualified Codes: A41.9 - Sepsis, unspecified organism Myrtle Carlos MD Dec 13, 2016 11:02
[2016-12-13] MEDS: SODIUM CHLORIDE 0.9% FLUSH 10 ML FLUSH IV FLUSH SCH ×3 (12:47→20:42)
[2016-12-13] MEDS: FAMOTIDINE 20 MG/2 ML VIAL IV PUSH SCH (12:47)
[2016-12-13] MEDS: CHLORHEXIDINE 0.12% (ORAL KIT) 15 ML CUP MT SCH ×2 (12:48→20:00)
--- NOTE | 2016-12-13 13:04 | HHI.HCPN ---
Reason for visit a. To assist with evaluation and management of symptoms including: dyspnea, pain, and debility b. To assist medical decision maker(s) with: better understanding of current medical conditions; weighing benefits/burdens of medical treatment options; making medical treatment decisions. . (Kallie Miranda) Subjective/Interval History Patient seen and examined, she remains intubated on mechanical ventilation. Patient is more alert today compared to previous exams, she does not follow commands or track at the time of my visit, however she does make eye contact, and responds to her name with a facial grimace. Per kier pleater the patient was following commands during her EEG today and was able to wiggle her fingers and toes to command. Leukocytosis is slowly improving, WBCs down to 25.5 from 28.6 yesterday, still with persistent thrombocytopenia, platelet count 42K this morning. Hemoglobin 8.0 this morning post transfusion of 1 unit of PRBCs yesterday for a hemoglobin of 7.1. BUN/creatinine remain elevated, increased today compared to yesterday, 96/4.50, only 2L taken off during dialysis today due to hypotension. Family/friend interactions Telephone update provided to patient's Marco Antonio Flores, face to face meeting set for tomorrow afternoon at 1430 to discuss goals of care, aggressive versus transition to comfort focused goals. The nature of the discussion for tomorrow's meeting was detailed to the patient's and a brief explanation of the different scenarios i.e. aggressive versus transition to comfort focused goals was completed in order to allow him some time to process the information prior to the meeting. (Kallie Miranda) Advance Directives Living Will: Copy in medical record Health Care Surrogate: Copy in medical record Durable Power of Polls Or Surveys Interviewer: Copy in medical record (Kallie Miranda) Advance Directive Specifics Date completed: 01/04/15 . Health Care Surrogate(s): Marco Antonio Flores () Alternate HCS: Alvin Flores or Pippa Flores . Documented care wishes: Standard living will susie, patient documented she would not want life prolonging measures if she had a terminal condition or was in a persistent vegetative state. . (Kallie Miranda) Objective Vital Signs Date Time Temp Pulse Resp B/P (MAP) Pulse Ox O2 Delivery O2 Flow Rate FiO2 12/13/16 12:00 35 12/13/16 12:00 97.2 74 19 155/77 (103) 99 12/13/16 12:00 73 12/13/16 10:00 75 12/13/16 09:54 99 35 12/13/16 08:00 35 12/13/16 08:00 97.5 75 18 156/77 (103) 98 12/13/16 07:34 99 35 12/13/16 07:00 66 12/13/16 06:00 80 12/13/16 04:05 99 35 12/13/16 04:00 35 12/13/16 04:00 75 12/13/16 04:00 98.4 75 19 157/78 (104) 97 12/13/16 02:00 79 12/13/16 00:04 96 35 12/13/16 00:00 79 12/13/16 00:00 35 12/13/16 00:00 98.2 79 25 154/76 (102) 99 12/12/16 22:00 77 12/12/16 22:00 77 19 149/72 (97) 99 12/12/16 20:26 98 35 12/12/16 20:00 79 12/12/16 20:00 98.0 79 18 144/71 (95) 98 12/12/16 20:00 35 12/12/16 18:25 96.7 78 21 139/68 97 12/12/16 18:00 79 12/12/16 17:57 97.3 79 25 152/70 97 12/12/16 16:00 96.3 80 17 134/69 (90) 97 12/12/16 16:00 80 12/12/16 16:00 35 12/12/16 14:45 99 35 12/12/16 14:00 75 Intake & Output 12/13/16 12/13/16 07:00 19:00 Intake Total 1464 ml Output Total 350 ml Balance 1114 ml Intake IV Total 350 ml Tube Feeding 364 ml Packed Cells 730 ml Blood Product IV Normal Saline Flush 20 ml Output Urine Total 350 ml Drainage Total 0 ml # Bowel Movements 2 . Physical Exam CONSTITUTIONAL/GENERAL: This is a critically ill patient, intubated and mechanically ventilated. TUBES/LINES/DRAINS: ETT, OGT, CVL LIJ, Left femoral arterial line, right femoral vas cath, soft wrist restraints SKIN: No jaundice, rashes, or lesions. Ecchymoses on upper extremities. Skin temperature appropriate. Large wound on LUE, covered with bandage. Not diaphoretic. CARDIOVASCULAR: Regular rate and rhythm without murmurs, gallops, or rubs. Peripheral pulses symmetric. RESPIRATORY/CHEST: Symmetric, mechanically ventilated. Clear to auscultation. Breath sounds equal bilaterally. No wheezes, rales, or rhonchi. GASTROINTESTINAL: Abdomen soft, nontender, nondistended. Hypoactive bowel sounds present. GENITOURINARY: Without palpable bladder distension. Peterson catheter in place. MUSCULOSKELETAL: Extremities without clubbing, cyanosis. 2+ pitting edema BUE. No mottling or clubbing. NEUROLOGICAL: Opens eyes spontaneously and to verbal stimuli. Blinks to threat, does not track. Does not follow commands. PSYCHIATRIC: Unable to assess secondary to clinical condition. (Ruben,Kallie SOLIS) Diagnostic Tests Laboratory Laboratory Tests Test 12/11/16 03:45 12/11/16 18:20 12/12/16 03:35 12/12/16 11:55 White Blood Count 37.0 TH/MM3 (4.0-11.0) 28.6 TH/MM3 (4.0-11.0) Red Blood Count 2.86 MIL/MM3 (4.00-5.30) 2.36 MIL/MM3 (4.00-5.30) Hemoglobin 8.4 GM/DL (11.6-15.3) 7.2 GM/DL (11.6-15.3) 7.1 GM/DL (11.6-15.3) Hematocrit 25.8 % (35.0-46.0) 21.5 % (35.0-46.0) 21.4 % (35.0-46.0) Mean Corpuscular Volume 90.2 FL (80.0-100.0) 90.9 FL (80.0-100.0) Mean Corpuscular Hemoglobin 29.5 PG (27.0-34.0) 30.5 PG (27.0-34.0) Mean Corpuscular Hemoglobin Concent 32.7 % (32.0-36.0) 33.6 % (32.0-36.0) Red Cell Distribution Width 16.0 % (11.6-17.2) 15.6 % (11.6-17.2) Platelet Count 58 TH/MM3 (150-450) 44 TH/MM3 (150-450) Mean Platelet Volume 11.0 FL (7.0-11.0) 10.7 FL (7.0-11.0) CBC Comment AUTO DIFF AUTO DIFF Differential Total Cells Counted 100 100 Neutrophils % (Manual) 94 % (16-70) 88 % (16-70) Band Neutrophils % 1 % (0-6) 3 % (0-6) Lymphocytes % 1 % (9-44) 3 % (9-44) Monocytes % 2 % (0-8) 6 % (0-8) Neutrophils # (Manual) 35.9 TH/MM3 (1.8-7.7) 26.0 TH/MM3 (1.8-7.7) Metamyelocytes 2 % (0-1) Differential Comment FINAL DIFF MANUAL FINAL DIFF MANUAL Platelet Estimate LOW (NORMAL) LOW (NORMAL) Platelet Morphology Comment NORMAL (NORMAL) ENLARGED (NORMAL) Prothrombin Time 14.4 SEC (9.8-11.6) Prothromb Time International Ratio 1.3 RATIO Activated Partial Thromboplast Time 27.8 SEC (24.3-30.1) Fibrinogen 137 mg/dL (227-377) Blood Urea Nitrogen 90 MG/DL (7-18) 77 MG/DL (7-18) Creatinine 4.58 MG/DL (0.50-1.00) 3.91 MG/DL (0.50-1.00) Random Glucose 190 MG/DL (74-106) 214 MG/DL (74-106) Total Protein 5.6 GM/DL (6.4-8.2) 5.8 GM/DL (6.4-8.2) Albumin 2.1 GM/DL (3.4-5.0) 2.9 GM/DL (3.4-5.0) Calcium Level 7.9 MG/DL (8.5-10.1) 8.1 MG/DL (8.5-10.1) Alkaline Phosphatase 299 U/L (45-117) 274 U/L (45-117) Aspartate Amino Transf (AST/SGOT) 44 U/L (15-37) 41 U/L (15-37) Alanine Aminotransferase (ALT/SGPT) 65 U/L (10-53) 50 U/L (10-53) Total Bilirubin 3.7 MG/DL (0.2-1.0) 3.6 MG/DL (0.2-1.0) Sodium Level 138 MEQ/L (136-145) 139 MEQ/L (136-145) Potassium Level 4.1 MEQ/L (3.5-5.1) 3.6 MEQ/L (3.5-5.1) Chloride Level 101 MEQ/L (98-107) 99 MEQ/L (98-107) Carbon Dioxide Level 22.3 MEQ/L (21.0-32.0) 26.2 MEQ/L (21.0-32.0) Anion Gap 15 MEQ/L (5-15) 14 MEQ/L (5-15) Estimat Glomerular Filtration Rate 9 ML/MIN (>89) 11 ML/MIN (>89) Stool C. difficile Toxin (PCR) NEGATIVE (NEGATIVE) Stl C. difficile Toxin Epiderm 027 PRESUMPTIVE NEGATIVE Neutrophils (%) (Auto) 91.3 % (16.0-70.0) Lymphocytes (%) (Auto) 3.9 % (9.0-44.0) Monocytes (%) (Auto) 4.6 % (0.0-8.0) Eosinophils (%) (Auto) 0.0 % (0.0-4.0) Basophils (%) (Auto) 0.2 % (0.0-2.0) Neutrophils # (Auto) 26.2 TH/MM3 (1.8-7.7) Lymphocytes # (Auto) 1.1 TH/MM3 (1.0-4.8) Monocytes # (Auto) 1.3 TH/MM3 (0-0.9) Eosinophils # (Auto) 0.0 TH/MM3 (0-0.4) Basophils # (Auto) 0.0 TH/MM3 (0-0.2) Nucleated Red Blood Cells 2 /100 WBC (0-0) Basophilic Stippling FAINT (NORMAL) Keratocytes OCC (NORMAL) Test 12/13/16 00:00 12/13/16 05:15 Hemoglobin 8.3 GM/DL (11.6-15.3) 8.0 GM/DL (11.6-15.3) Hematocrit 24.8 % (35.0-46.0) 23.2 % (35.0-46.0) White Blood Count 25.5 TH/MM3 (4.0-11.0) Red Blood Count 2.61 MIL/MM3 (4.00-5.30) Mean Corpuscular Volume 88.9 FL (80.0-100.0) Mean Corpuscular Hemoglobin 30.7 PG (27.0-34.0) Mean Corpuscular Hemoglobin Concent 34.5 % (32.0-36.0) Red Cell Distribution Width 16.0 % (11.6-17.2) Platelet Count 42 TH/MM3 (150-450) Mean Platelet Volume 10.3 FL (7.0-11.0) Neutrophils (%) (Auto) 94.3 % (16.0-70.0) Lymphocytes (%) (Auto) 1.8 % (9.0-44.0) Monocytes (%) (Auto) 3.8 % (0.0-8.0) Eosinophils (%) (Auto) 0.0 % (0.0-4.0) Basophils (%) (Auto) 0.1 % (0.0-2.0) Neutrophils # (Auto) 24.0 TH/MM3 (1.8-7.7) Lymphocytes # (Auto) 0.5 TH/MM3 (1.0-4.8) Monocytes # (Auto) 1.0 TH/MM3 (0-0.9) Eosinophils # (Auto) 0.0 TH/MM3 (0-0.4) Basophils # (Auto) 0.0 TH/MM3 (0-0.2) CBC Comment AUTO DIFF Differential Total Cells Counted 100 Neutrophils % (Manual) 86 % (16-70) Band Neutrophils % 2 % (0-6) Lymphocytes % 6 % (9-44) Monocytes % 5 % (0-8) Neutrophils # (Manual) 22.7 TH/MM3 (1.8-7.7) Metamyelocytes 1 % (0-1) Nucleated Red Blood Cells 1 /100 WBC (0-0) Differential Comment FINAL DIFF MANUAL Platelet Estimate LOW (NORMAL) Platelet Morphology Comment NORMAL (NORMAL) Blood Urea Nitrogen 96 MG/DL (7-18) Creatinine 4.50 MG/DL (0.50-1.00) Random Glucose 194 MG/DL (74-106) Total Protein 5.4 GM/DL (6.4-8.2) Albumin 2.4 GM/DL (3.4-5.0) Calcium Level 8.3 MG/DL (8.5-10.1) Alkaline Phosphatase 269 U/L (45-117) Aspartate Amino Transf (AST/SGOT) 38 U/L (15-37) Alanine Aminotransferase (ALT/SGPT) 48 U/L (10-53) Total Bilirubin 3.0 MG/DL (0.2-1.0) Sodium Level 139 MEQ/L (136-145) Potassium Level 3.3 MEQ/L (3.5-5.1) Chloride Level 99 MEQ/L (98-107) Carbon Dioxide Level 23.3 MEQ/L (21.0-32.0) Anion Gap 17 MEQ/L (5-15) Estimat Glomerular Filtration Rate 10 ML/MIN (>89) . (Lower,Kallie Lira [facility]) Result Diagram: 12/13/16 0515 12/13/16 0515 Microbiology Microbiology Date/Time Source Procedure Growth Status 12/12/16 17:20 Sputum Endotracheal Gram Stain - Final Resulted 12/12/16 17:20 Sputum Endotracheal Sputum Culture Pending Resulted Imaging Last [address] 12/11/16 Signed Impressions: Service Date/Time: Sunday, December 11, 2016 17:09 - CONCLUSION: 1. Minimal chronic sinusitis in the sphenoid sinuses bilaterally. 2. Bilateral acute mastoiditis. 3. Otherwise negative. Anatomic detail is somewhat limited due to motion artifact, however. Jamel Johns MD Chest CT 12/11/16 Signed Impressions: Service Date/Time: Sunday, December 11, 2016 17:15 - CONCLUSION: Small bibasilar consolidation and/or compressive collapse and bilateral pleural effusions. Kristen Deleon MD Abdomen/Pelvis CT 12/11/16 Signed Impressions: Service Date/Time: Sunday, December 11, 2016 17:15 - CONCLUSION: 1. Cholecystostomy tube in place with decrease in the amount of hyperdensity within the lumen. 2. Persistent bilateral pleural effusions, stable. Persistent free fluid in the pelvis, slightly decreased. 3. Increase in the amount of induration of the lateral abdominal wall and pelvic subcutaneous tissues an increase swelling of the lateral musculature Nain Mejia MD ([facility]) Assessment and Plan Disease Oriented Problem List: (1) Sepsis (2) Metabolic acidosis (3) Acute cholecystitis (4) Respiratory failure Symptom Scale: (1) Dyspnea (2) Debility (3) Pain Pertinent Non-Medical Issues Psychosocial:Patient is originally from [place], [place], she has been to her for 56 years and has two children. 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 She retired in her early 60s when she began spending half of the year between [place] and [place]. Spiritual: Legal: None known. Ethical issues impacting care:None known. Important Contacts Marco Antonio Flores () [phone] . Prognosis Patient has experienced a physical and functional decline over the past two years. She has suffered from chronic back pain due to scoliosis and has recently drank daily heavily to alleviate the pain. The patient was admitted for sepsis followed by respiratory distress requiring intubation, she has continued to decline and has now progressed into multiorgan failure. She is at an increased risk for complications/setbacks due to her advanced age, multiple comorbidities, and current clinical status. . Code Status: Alternative Code Plan * Legal decision maker: Patient does not have the capacity to make her own health care decisions. It is unclear at this time if she will regain the capacity to make her own health care decisions. Documented HCS is patient's Marco Antonio Flores [phone], alternate HCS are Alvin Flores or Pippa Flores. * CODE STATUS:Alternative code, intubation only. * GOALS: Aggressive short of CPR. Further discussion pending face to face meeting tomorrow with patient's and daughter at 1430 to discuss goals of care, aggressive versus transition to comfort focused goals. * SYMPTOM MANAGEMENT: * --pain: Patient at ongoing risk for pain secondary to intubation, mechanical ventilation, and bedbound status. On fentanyl gtt. No recommendations at this time, further recommendations pending hospital course. * --dyspnea: Patient is intubated and mechanically ventilated, duonebs scheduled q 6hr and q 2hr PRN ordered. No recommendations at this time. * --debility: Secondary to current clinical status, mechanical ventilation, bedbound status. PT/OT following and working with the patient. No recommendations at this time. * Palliative care will continue to follow during hospital course as condition evolves, to assist patient/family/decision-maker with understanding of medical conditions, weighing benefit/burdens of treatment options, for clarification of goals of treatment. Additionally will assist with symptoms of palliative concern. (Kallie Miranda) Attestation To help prompt me to consider important information that might be impacting today's encounter and assessment, information from prior notes written by myself or my colleagues may have been "brought forward" into today's note. My signature on this note, however, is an attestation that I personally performed the exam, history, and/or decision-making noted today, and, unless otherwise indicated, the interactions with patient, family, and staff as well as the review of records all occurred today. I also attest that the listed assessment and stated plan reflect my best clinical judgment today based on the combination of historical information, prior notes, and today's exam/ interactions. When time spent is documented, it refers only to time spent today by the signer, or if indicated, combined time spent today by collaborating physician/nurse practitioner. (Kallie Miranda) Collaborating MD Comments Chart reviewed. Case discussed with palliative care OTOLARYNGOLOGY TEACHER. Above IRMA note reviewed and I concur. . (Vijay Miller MD) Kallie Miranda Dec 13, 2016 13:04 Vijay Miller MD Dec 13, 2016 17:39
--- NOTE | 2016-12-13 13:16 | PD.ONC.PN ---
Subjective Subjective Remarks Afebrile Getting dialysis No bleeding Objective Data Date Time Temp Pulse Resp B/P (MAP) Pulse Ox O2 Delivery O2 Flow Rate FiO2 12/13/16 12:00 35 12/13/16 12:00 97.2 74 19 155/77 (103) 99 12/13/16 12:00 73 12/13/16 10:00 75 12/13/16 09:54 99 35 12/13/16 08:00 35 12/13/16 08:00 97.5 75 18 156/77 (103) 98 12/13/16 07:34 99 35 12/13/16 07:00 66 12/13/16 06:00 80 12/13/16 04:05 99 35 12/13/16 04:00 35 12/13/16 04:00 75 12/13/16 04:00 98.4 75 19 157/78 (104) 97 12/13/16 02:00 79 12/13/16 00:04 96 35 12/13/16 00:00 79 12/13/16 00:00 35 12/13/16 00:00 98.2 79 25 154/76 (102) 99 12/12/16 22:00 77 12/12/16 22:00 77 19 149/72 (97) 99 12/12/16 20:26 98 35 12/12/16 20:00 79 12/12/16 20:00 98.0 79 18 144/71 (95) 98 12/12/16 20:00 35 12/12/16 18:25 96.7 78 21 139/68 97 12/12/16 18:00 79 12/12/16 17:57 97.3 79 25 152/70 97 12/12/16 16:00 96.3 80 17 134/69 (90) 97 12/12/16 16:00 80 12/12/16 16:00 35 12/12/16 14:45 99 35 12/12/16 14:00 75 12/13/16 12/13/16 12/13/16 07:00 15:00 23:00 Intake Total 1079 ml Output Total 350 ml 2000 ml Balance 729 ml -2000 ml Result Diagram: 12/13/1615 12/13/1615 Laboratory Results Laboratory Tests Test 12/13/16 00:00 12/13/16 05:15 Hemoglobin 8.3 GM/DL 8.0 GM/DL Hematocrit 24.8 % 23.2 % White Blood Count 25.5 TH/MM3 Red Blood Count 2.61 MIL/MM3 Mean Corpuscular Volume 88.9 FL Mean Corpuscular Hemoglobin 30.7 PG Mean Corpuscular Hemoglobin Concent 34.5 % Red Cell Distribution Width 16.0 % Platelet Count 42 TH/MM3 Mean Platelet Volume 10.3 FL Neutrophils (%) (Auto) 94.3 % Lymphocytes (%) (Auto) 1.8 % Monocytes (%) (Auto) 3.8 % Eosinophils (%) (Auto) 0.0 % Basophils (%) (Auto) 0.1 % Neutrophils # (Auto) 24.0 TH/MM3 Lymphocytes # (Auto) 0.5 TH/MM3 Monocytes # (Auto) 1.0 TH/MM3 Eosinophils # (Auto) 0.0 TH/MM3 Basophils # (Auto) 0.0 TH/MM3 CBC Comment AUTO DIFF Differential Total Cells Counted 100 Neutrophils % (Manual) 86 % Band Neutrophils % 2 % Lymphocytes % 6 % Monocytes % 5 % Neutrophils # (Manual) 22.7 TH/MM3 Metamyelocytes 1 % Nucleated Red Blood Cells 1 /100 WBC Differential Comment FINAL DIFF MANUAL Platelet Estimate LOW Platelet Morphology Comment NORMAL Blood Urea Nitrogen 96 MG/DL Creatinine 4.50 MG/DL Random Glucose 194 MG/DL Total Protein 5.4 GM/DL Albumin 2.4 GM/DL Calcium Level 8.3 MG/DL Alkaline Phosphatase 269 U/L Aspartate Amino Transf (AST/SGOT) 38 U/L Alanine Aminotransferase (ALT/SGPT) 48 U/L Total Bilirubin 3.0 MG/DL Sodium Level 139 MEQ/L Potassium Level 3.3 MEQ/L Chloride Level 99 MEQ/L Carbon Dioxide Level 23.3 MEQ/L Anion Gap 17 MEQ/L Estimat Glomerular Filtration Rate 10 ML/MIN Culture Results Microbiology Date/Time Source Procedure Growth Status 12/12/16 17:20 Sputum Endotracheal Gram Stain - Final Resulted 12/12/16 17:20 Sputum Endotracheal Sputum Culture Pending Resulted Administered Medications Medications (Trade) Dose Ordered Sig/Dhruv Route PRN Reason Start Time Stop Time Status Last Admin Dose Admin Sodium Chloride (NS Flush) 2 ml UNSCH PRN IV FLUSH FLUSH AFTER USING IV ACCESS 12/02/16 16:15 12/12/16 22:33 Sodium Chloride (NS Flush) 2 ml BID IV FLUSH 12/02/16 21:00 12/13/16 12:47 Famotidine (Pepcid Inj) 20 mg DAILY IV PUSH 12/02/16 21:00 12/13/16 12:47 Heparin Sodium (Porcine) (Heparin Inj) 5,000 units Q12H SQ 12/02/16 17:00 Future Hold 12/04/16 04:28 Miscellaneous Information 1 Q361D XX 12/02/16 16:15 12/02/16 16:15 Chlorhexidine Gluconate (Chlorhexidine 2% Cloth) Taper DAILY@04 TOP 12/03/16 04:00 11/29/17 03:59 12/13/16 04:00 Senna/Docusate Sodium (Keely-Colace) 1 tab BID PO 12/02/16 21:00 12/12/16 22:33 Lorazepam (Ativan Inj) 1 mg Q4H PRN IV PUSH ANXIETY 12/02/16 16:45 12/09/16 10:20 Chlorhexidine Gluconate (Peridex 0.12% Liq) 15 ml BID@08,20 MT 12/03/16 08:00 12/13/16 12:48 Fentanyl Citrate 250 ml @ 5 mls/hr TITRATE PRN IV SEDATION 12/02/16 22:15 12/13/16 00:51 Sodium Chloride (NS Flush) DAILY IV FLUSH 12/03/16 09:00 12/13/16 12:47 Sodium Chloride (NS Flush) UNSCH PRN IV FLUSH SEE PROTOCOL 12/02/16 23:15 12/06/16 20:52 Artificial Tears (Tears Naturale Opth Soln) 1 drop Q8HR PRN EACH EYE DRY EYE 12/03/16 08:15 12/04/16 17:22 Sodium Chloride 1,000 ml @ 0 mls/hr UNSCH PRN OTHER SEE LABEL COMMENTS 12/05/16 17:30 12/07/16 02:14 Sodium Chloride 1,000 ml @ 0 mls/hr Q0M PRN OTHER For Prime & Rinse Back 12/07/16 10:56 12/08/16 12:21 Albumin Human 100 ml @ 60 mls/hr UNSCH PRN IV WITH DIALYSIS 12/07/16 11:00 12/11/16 09:05 Gentamicin Sulfate (Gentamicin (Dialysis) Inj) 20 mg UNSCH PRN OTHER WITH DIALYSIS 12/07/16 11:00 12/11/16 08:47 Epoetin Ronald (Epogen Inj) 10,000 units UNSCH PRN IV PUSH WITH DIALYSIS 12/07/16 11:00 12/11/16 08:47 Piperacillin Sod/ Tazobactam Sod 50 ml @ 100 mls/hr Q6H IV 12/07/16 17:00 12/13/16 12:47 Levofloxacin/ Dextrose 100 ml @ 100 mls/hr Q48H IV 12/07/16 16:00 12/11/16 16:00 Diltiazem HCl (Cardizem) 60 mg Q6HR PO 12/12/16 08:15 12/13/16 12:48 Objective Remarks GENERAL: Intubated, sedated female lying supine in bed in no acute distress. SKIN: Warm and dry. Left forearm with bandages in place. Serous fluid noted on bandage HEAD: Normocephalic. EYES: No injection or drainage. NECK: Supple, trachea midline. CARDIOVASCULAR: Regular rate and rhythm RESPIRATORY: Mechanically ventilated. GASTROINTESTINAL: Abdomen mildly distended. EXTREMITIES: No cyanosis. Anasarca NEUROLOGICAL: intubated on fentanyl however shakes head yes and no to questions Assessment/Plan Problem List: (1) Pancytopenia ICD Codes: D61.818 - Other pancytopenia Plan: 12/12: Blood counts continue to trend low with underlying sepsis. No bleeding. Monitor CBC. --due to bone marrow suppression from sepsis. --expect her pancytopenia to get worse in the next several days if sepsis is not under control. --monitor her CBC closely and provide blood product support as needed. (2) Sepsis ICD Codes: A41.9 - Sepsis, unspecified organism Status: Acute (3) Acute kidney injury ICD Codes: N17.9 - Acute kidney failure, unspecified Status: Acute Plan: --receiving HD on Assessment 71 y/o female with coagulopathy d/t sepsis. Attending Statement on vent, follows command sepsis seems to be improving. monitor cbc will follow. Problem Qualifiers (1) Sepsis: Qualified Codes: A41.9 - Sepsis, unspecified organism Maddison Bustamante [facility] Dec 13, 2016 13:16 Lana Justice MD Dec 13, 2016 17:34
[2016-12-13] MEDS: INSULIN NovoLIN REGULAR SUPPLEMENTAL SCALE SQ SCH ×2 (14:00→20:00)
--- NOTE | 2016-12-13 14:42 | PD.RAD ---
Post Procedure Progress Note Pre Procedure Diagnosis: (1) Acute kidney injury Post Procedure Diagnosis: (1) Acute kidney injury Procedure Date: Dec 13, 2016 Supervising Radiologist: Nain Sharma JR Proceduralist/Assist: RT Jacinda(R), RT Paola(R)() Anesthesia: Other Plan of Activity Patient to Unit: Critical Care Patient Condition: Fair See PACS Report for procedural detail/treatment Central Venous Access Device Procedure 1 Right Internal Jugular Hemodialysis Catheter Non-Tunneled Placement dual lumen Spanish: 14 Findings: Placed right IJ Vascath. Functions well. Ok to use. Jr. Zachary,Nain Valderrama MD Dec 13, 2016 14:42
[2016-12-13] MEDS ORDERED: SODIUM CHLORIDE 0.9% FLUSH 10 ML FLUSH IV FLUSH PRN (14:45)
[2016-12-13] MEDS ORDERED: HEPARIN SODIUM - IV 2,000 UNITS/2 ML VIAL IV FLUSH PRN (14:45)
[2016-12-13] MEDS ORDERED: HEPARIN SODIUM - IV 10,000 UNITS/10 ML VIAL IV ONE (14:48)
[2016-12-13] MEDS: HEPARIN SODIUM - SQ 10,000 UNITS/ML VIAL SQ SCH (14:53)
[2016-12-13] MEDS: LEVOFLOXACIN 500 MG PREMIX INJ 100 ML IV SCH (15:15)
--- NOTE | 2016-12-13 16:02 | MG ---
cc: DRAKE IVEY M.D. Lab No: [id number] Date: 12/13/2016 Age: 71 Sex: F Race: DATE OF : [address] Goodwin. Room 511 intubated on fentanyl at 5 mcg, photic done. Wiggles toes when asked, shook her head no when asked, squeezed hands. CT negative. A 71-year-old woman admitted with fever, shortness of breath, vomiting, diarrhea, atrial fibrillation, RVR, on Cardizem. DESCRIPTION OF RECORD The patient's mouth is open, there is a lot of artifact from the beginning portion of the recording with gross eye movement, some mild slowing predominantly theta frequency seen interspersed. But ongoing frontal myogenic ocular artifact. The patient's eyes are open, asked to squeeze hands and shake head which she did. Photic stimulation difficult to tell if there is a driving response or just more artifact. IMPRESSION Abnormal EEG due to some background slowing, a lot of artifact, suboptimal study but more consistent with encephalopathic process. There is no evidence of any epileptic activity and difficult to tell due to all the artifact, however, clinical correlation would be indicated in this case. MD STEPHANIE Pederson/ARMANI /3:36 PM /3:51 PM
--- NOTE | 2016-12-13 16:12 | RADRPT ---
EXAM DATE/TIME: 12/13/2016 14:14 [facility] COMPARISON: No previous studies available for comparison. INDICATIONS : Patient with acute renal failure in need of vascath placement for dialysis. MEDICAL HISTORY : Pneumonia 2011, [place] 1993, status post angioplasty x2, hypertension SURGICAL HISTORY : Right total knee replacement, anterior cervical discectomy and fusion ENCOUNTER: Initial ACUITY: 3 weeks PAIN SCORE: 0/10 FLUORO TIME: 0.3 minutes IMAGE SERIES: 1 ACCESS: Right internal jugular vein DEVICE(S): 1.) 14 Icelandic dual lumen 15 cm Schon catheter PROCEDURE : 1. Ultrasound guided venipuncture. 2. Fluoroscopic guidance. 3. Central line placement. The risks, benefits and alternatives to the procedure were explained and verbal and written consent w as obtained. The site was prepped in sterile fashion. Full sterile technique was used, including ca p, mask, sterile gloves and gown and a large sterile sheet. Hand hygiene and 2% chlorhexidine prep w as utilized per protocol for cutaneous antisepsis with appropriate dry time for site. Sterile gel an d sterile probe cover were utilized for ultrasound guidance. The skin and subcutaneous tissues were infiltrated with local anesthetic solution. A suitable site a anu the vein was selected with ultrasound and fluoroscopic guidance. A small incision was made. Th e vein was accessed under direct ultrasound visualization using the micropuncture technique. The myra ropuncture set was exchanged for a 0.035 wire. The tract was dilated. The catheter was advanced int o position under direct fluoroscopic visualization. The catheter was fixed in place with suture and a sterile dressing was applied. The patient tolerated the procedure well and there were no complications. CONCLUSION: Uncomplicated line placement as above. Nain Sharma Jr., MD on December 13, 2016 at 16:10 Board Certified Radiologist. This report was verified electronically.
--- NOTE | 2016-12-13 16:12 | RADRPT ---
EXAM DATE/TIME: 12/13/2016 14:14 [facility] COMPARISON: No previous studies available for comparison. INDICATIONS : Patient with acute renal failure in need of vascath placement for dialysis. MEDICAL HISTORY : Pneumonia 2011, [place] 1993, status post angioplasty x2, hypertension SURGICAL HISTORY : Right total knee replacement, anterior cervical discectomy and fusion ENCOUNTER: Initial ACUITY: 3 weeks PAIN SCORE: 0/10 FLUORO TIME: 0.3 minutes IMAGE SERIES: 1 ACCESS: Right internal jugular vein DEVICE(S): 1.) 14 Yi dual lumen 15 cm Schon catheter PROCEDURE : 1. Ultrasound guided venipuncture. 2. Fluoroscopic guidance. 3. Central line placement. The risks, benefits and alternatives to the procedure were explained and verbal and written consent w as obtained. The site was prepped in sterile fashion. Full sterile technique was used, including ca p, mask, sterile gloves and gown and a large sterile sheet. Hand hygiene and 2% chlorhexidine prep w as utilized per protocol for cutaneous antisepsis with appropriate dry time for site. Sterile gel an d sterile probe cover were utilized for ultrasound guidance. The skin and subcutaneous tissues were infiltrated with local anesthetic solution. A suitable site a aun the vein was selected with ultrasound and fluoroscopic guidance. A small incision was made. Th e vein was accessed under direct ultrasound visualization using the micropuncture technique. The myra ropuncture set was exchanged for a 0.035 wire. The tract was dilated. The catheter was advanced int o position under direct fluoroscopic visualization. The catheter was fixed in place with suture and a sterile dressing was applied. The patient tolerated the procedure well and there were no complications. CONCLUSION: Uncomplicated line placement as above. Nain Sharma Jr., MD on December 13, 2016 at 16:10 Board Certified Radiologist. This report was verified electronically.
--- NOTE | 2016-12-13 16:41 | HHI.GIFU ---
Subjective Remarks Resting in bed. Lethargic, but opens eyes to name and is following commands. Does have Epigastric/RUQ tenderness. + BM per nurse Objective Vitals I&O Vital Signs Date Time Temp Pulse Resp B/P (MAP) Pulse Ox O2 Delivery O2 Flow Rate FiO2 12/13/16 16:00 98.1 78 18 138/66 (90) 100 12/13/16 12:00 35 12/13/16 12:00 97.2 74 19 155/77 (103) 99 12/13/16 12:00 73 12/13/16 10:00 75 12/13/16 09:54 99 35 12/13/16 08:00 35 12/13/16 08:00 97.5 75 18 156/77 (103) 98 12/13/16 07:34 99 35 12/13/16 07:00 66 12/13/16 06:00 80 12/13/16 04:05 99 35 12/13/16 04:00 35 12/13/16 04:00 75 12/13/16 04:00 98.4 75 19 157/78 (104) 97 12/13/16 02:00 79 12/13/16 00:04 96 35 12/13/16 00:00 79 12/13/16 00:00 35 12/13/16 00:00 98.2 79 25 154/76 (102) 99 12/12/16 22:00 77 12/12/16 22:00 77 19 149/72 (97) 99 12/12/16 20:26 98 35 12/12/16 20:00 79 12/12/16 20:00 98.0 79 18 144/71 (95) 98 12/12/16 20:00 35 12/12/16 18:25 96.7 78 21 139/68 97 12/12/16 18:00 79 12/12/16 17:57 97.3 79 25 152/70 97 I/O 12/12/16 12/12/16 12/12/16 12/13/16 12/13/16 12/13/16 07:00 15:00 23:00 07:00 15:00 23:00 Intake Total 839 ml 50 ml 435 ml 1079 ml 50 ml Output Total 255 ml 320 ml 350 ml 2000 ml Balance 584 ml 50 ml 115 ml 729 ml -1950 ml Intake IV Total 257 ml 50 ml 50 ml 350 ml 50 ml Tube Feeding 522 ml 364 ml Packed Cells 365 ml 365 ml Blood Product IV Normal Saline Flush 20 ml Other 60 ml Output Urine Total 225 ml 300 ml 350 ml Drainage Total 30 ml 20 ml 0 ml Hemodialysis 2000 ml # Bowel Movements 2 2 2 Laboratory Laboratory Tests Test 12/13/16 00:00 12/13/16 05:15 Hemoglobin 8.3 8.0 Hematocrit 24.8 23.2 White Blood Count 25.5 Red Blood Count 2.61 Mean Corpuscular Volume 88.9 Mean Corpuscular Hemoglobin 30.7 Mean Corpuscular Hemoglobin Concent 34.5 Red Cell Distribution Width 16.0 Platelet Count 42 Mean Platelet Volume 10.3 Neutrophils (%) (Auto) 94.3 Lymphocytes (%) (Auto) 1.8 Monocytes (%) (Auto) 3.8 Eosinophils (%) (Auto) 0.0 Basophils (%) (Auto) 0.1 Neutrophils # (Auto) 24.0 Lymphocytes # (Auto) 0.5 Monocytes # (Auto) 1.0 Eosinophils # (Auto) 0.0 Basophils # (Auto) 0.0 CBC Comment AUTO DIFF Differential Total Cells Counted 100 Neutrophils % (Manual) 86 Band Neutrophils % 2 Lymphocytes % 6 Monocytes % 5 Neutrophils # (Manual) 22.7 Metamyelocytes 1 Nucleated Red Blood Cells 1 Differential Comment FINAL DIFF MANUAL Platelet Estimate LOW Platelet Morphology Comment NORMAL Blood Urea Nitrogen 96 Creatinine 4.50 Random Glucose 194 Total Protein 5.4 Albumin 2.4 Calcium Level 8.3 Alkaline Phosphatase 269 Aspartate Amino Transf (AST/SGOT) 38 Alanine Aminotransferase (ALT/SGPT) 48 Total Bilirubin 3.0 Sodium Level 139 Potassium Level 3.3 Chloride Level 99 Carbon Dioxide Level 23.3 Anion Gap 17 Estimat Glomerular Filtration Rate 10 Date/Time Source Procedure Growth Status 12/09/16 15:13 Blood Peripheral Aerobic Blood Culture - Preliminary NO GROWTH IN 4 DAYS Resulted 12/09/16 15:13 Blood Peripheral Anaerobic Blood Culture - Preliminary NO GROWTH IN 4 DAYS Resulted 12/03/16 14:55 Fluid Bile Fluid Gram Stain - Final Complete 12/03/16 14:55 Body Fluid Culture - Final Enterococcus Faecalis Complete 12/12/16 17:20 Sputum Endotracheal Gram Stain - Final Resulted 12/12/16 17:20 Sputum Endotracheal Sputum Culture - Preliminary IMMATURE GROWTH - REINCUBATE Resulted 12/09/16 18:00 Urine Catheterized Urine Urine Culture - Final NO GROWTH IN 48 HOURS. Complete Imaging Last Impressions Catheter Placement X-Ray 12/13/16 0000 Signed Impressions: Service Date/Time: November 14:14 - CONCLUSION: Uncomplicated line placement as above. Nain Sharma Jr., MD Head CT 12/11/16 0000 Signed Impressions: Service Date/Time: Sunday, December 11, 2016 17:09 - CONCLUSION: 1. Minimal chronic sinusitis in the sphenoid sinuses bilaterally. 2. Bilateral acute mastoiditis. 3. Otherwise negative. Anatomic detail is somewhat limited due to motion artifact, however. Jamel Johns MD Chest CT 12/11/16 0000 Signed Impressions: Service Date/Time: Sunday, December 11, 2016 17:15 - CONCLUSION: Small bibasilar consolidation and/or compressive collapse and bilateral pleural effusions. Kristen Deleon MD Abdomen/Pelvis CT 12/11/16 0000 Signed Impressions: Service Date/Time: Sunday, December 11, 2016 17:15 - CONCLUSION: 1. Cholecystostomy tube in place with decrease in the amount of hyperdensity within the lumen. 2. Persistent bilateral pleural effusions, stable. Persistent free fluid in the pelvis, slightly decreased. 3. Increase in the amount of induration of the lateral abdominal wall and pelvic subcutaneous tissues an increase swelling of the lateral musculature Nain Mejia MD Chest X-Ray 12/09/16 0600 Signed Impressions: Service Date/Time: Friday, December 09, 2016 04:06 - CONCLUSION: 1. Interval placement of nasogastric tube. 2. Bibasal opacities remain. Josef Luther MD Abdomen X-Ray 12/09/16 0000 Signed Impressions: Service Date/Time: Friday, December 09, 2016 12:19 - CONCLUSION: OG tube tip in the distal stomach. Fermin Wills MD Abdomen CT 12/08/16 0000 Signed Impressions: Service Date/Time: Thursday, December 08, 2016 17:52 - CONCLUSION: 1. Cholecystostomy tube in good position. Nain Sharma Jr., MD Percutaneous Cholangiogram 12/03/16 0000 Signed Impressions: Service Date/Time: Saturday, December 03, 2016 14:31 - CONCLUSION: Uncomplicated percutaneous cholecystostomy as above. Nain Sharma Jr., MD Liver Ultrasound 12/02/16 0000 Signed Impressions: Service Date/Time: Friday, December 02, 2016 19:12 - CONCLUSION: 1. Cholelithiasis with wall thickening and trace pericholecystic fluid. 2. No evidence of biliary duct distention. 3. No other significant abnormality. Jak Hughes MD Physical Exam HEENT: Normocephalic; atraumatic; no jaundice. CHEST: Resp even/unlabored, OETT to vent. Diminished bases CARDIAC: RRR ABDOMEN: Soft, mildly distended, cholecystomy tube patent, drsg d/i, bowel sounds are hypoactive EXTREMITIES: Edema BUE, mild edema to ble SKIN: Drsg lue. [employer]: Sedated on vent. Lethargic, but following commands today Assessment and Plan Plan ASSESSMENT: - Cholecystitis. CT scan abdomen and pelvis without iv contrast (12/02/16)---> No evidence of acute abdominal or pelvic process. No masses are identified. Cholelithiasis. Left lower lobe atelectasis versus pneumonia, a large hiatal hernia is present, diverticulosis without evidence of diverticulitis. Liver US (12/02/16)---> Cholelithiasis with wall thickening and trace pericholecystic fluid, no evidence of biliary duct distention, no other significant abnormality. Bacteremia with multiple organisms. GS following, s/p cholecystomy tube 12/03. T. BIli 3.0, AST 38, ALT 48, Alk Phosph 269. Cholecystomy tube patent. Zosyn, Levaquin, Tolerating TF. - FEN/Malnutrition. Nurse was unable to place OGT (would not advance). Attempt at NGT/Dobbhoff was unsuccessful. S/P EGD with OGT placement (12/07/16)----> Hiatal hernia. Successful OG tube placement. Tolerating TF. Homemaking Rehabilitation Consultant recommends Nepro GR 45cc/hr. - Epistaxis. (after attempted Dobbhoff placement) resolved. - Thrombocytopenia, Coagulopathy. S/P 2 units of FFP. HIT negative - Elevated LFTs. No evidence of biliary duct obstruction. No evidence of pancreatitis or dilated ducts on imaging. Unclear if this is all cholecystis, or passed stone, or possible ETOH and cholecystitis. S/P Cholecystomy tube. Hepatitis profile negative, HERBER negative, AMA <20.0, ASMA neg, Iron saturation 2.7%, Ferritin 306, ALpha 1 antitrypsin 209, Ceruloplasmin 32, AFP. T. BIli 3.0, AST 38, ALT 48 , Alk Phosph 269. - Severe sepsis with multisystem failure. BCx from 12/02/16 grew enterobacter species, klebsiella pneumoniae, escherichia coli, and GNR in the anaerobic bottle. Bile cx Group D Enterococcus. Sputum Cx E. Coli. Rpt urine, sputum, blood culture pending. Zosyn, Levaquin. WBC 25.5 - Anemia. S/P 1 unit PRBC. HH 8.0/23.2. - Abdominal pain, nausea, decreased appetite. Likely related to cholecystis. Currently sedated. - ARF with severe electrolyte abnormalities. S/P CVVHD, now transitioned to HD. Per nephrology - Resp. Failure/PNA. CXR LLL atelectasis vs. pna, resolving right basilar atelectasis. Cx E. Coli. Still lethargic, but is following commands today. - Chronic back pain r/t scoliosis. Uses medical marijuana via vaping and takes 4 shots of scotch per day to help with her pain control. Last had these 2 weeks ago. - CAD, Hx HTN, Hyperlipidemia per attending. PLAN: - Nepro 45cc/hr - Abx per ID recommendations - S/P Cholecystomy tube placement by IR (12/03) - Monitor labs - Supportive care - Further recommendations to follow based on results of above - Pt seen and examined by Dr. Andre and myself and this note is written on his behalf Danica Shipley Dec 13, 2016 16:41
--- NOTE | 2016-12-13 17:09 | HHI.IDPN ---
Subjective Subjective Remarks Improving WBC afebrile of pressors On vent, tg CPAP Biliary drain not draining MS proved: following commands Sputum clx growing Steno malt UOP improved to 600+ cc/d Antibiotics zosyn' levaquine Allergies: Coded Allergies: No Known Allergies (Unverified , 12/02/16) Objective . Vital Signs Date Time Temp Pulse Resp B/P (MAP) Pulse Ox O2 Delivery O2 Flow Rate FiO2 12/13/16 16:00 98.1 78 18 138/66 (90) 100 12/13/16 12:00 35 12/13/16 12:00 97.2 74 19 155/77 (103) 99 12/13/16 12:00 73 12/13/16 10:00 75 12/13/16 09:54 99 35 12/13/16 08:00 35 12/13/16 08:00 97.5 75 18 156/77 (103) 98 12/13/16 07:34 99 35 12/13/16 07:00 66 12/13/16 06:00 80 12/13/16 04:05 99 35 12/13/16 04:00 35 12/13/16 04:00 75 12/13/16 04:00 98.4 75 19 157/78 (104) 97 12/13/16 02:00 79 12/13/16 00:04 96 35 12/13/16 00:00 79 12/13/16 00:00 35 12/13/16 00:00 98.2 79 25 154/76 (102) 99 12/12/16 22:00 77 12/12/16 22:00 77 19 149/72 (97) 99 12/12/16 20:26 98 35 12/12/16 20:00 79 12/12/16 20:00 98.0 79 18 144/71 (95) 98 12/12/16 20:00 35 12/12/16 18:25 96.7 78 21 139/68 97 12/12/16 18:00 79 12/12/16 17:57 97.3 79 25 152/70 97 12/13/16 12/13/16 12/14/16 15:00 23:00 07:00 Intake Total 50 ml Output Total 2000 ml Balance -1950 ml Intake IV Total 50 ml Hemodialysis 2000 ml . Laboratory Tests Test 12/12/16 03:35 12/12/16 11:55 12/13/16 00:00 12/13/16 05:15 White Blood Count 28.6 TH/MM3 25.5 TH/MM3 Red Blood Count 2.36 MIL/MM3 2.61 MIL/MM3 Hemoglobin 7.2 GM/DL 7.1 GM/DL 8.3 GM/DL 8.0 GM/DL Hematocrit 21.5 % 21.4 % 24.8 % 23.2 % Mean Corpuscular Volume 90.9 FL 88.9 FL Mean Corpuscular Hemoglobin 30.5 PG 30.7 PG Mean Corpuscular Hemoglobin Concent 33.6 % 34.5 % Red Cell Distribution Width 15.6 % 16.0 % Platelet Count 44 TH/MM3 42 TH/MM3 Mean Platelet Volume 10.7 FL 10.3 FL Neutrophils (%) (Auto) 91.3 % 94.3 % Lymphocytes (%) (Auto) 3.9 % 1.8 % Monocytes (%) (Auto) 4.6 % 3.8 % Eosinophils (%) (Auto) 0.0 % 0.0 % Basophils (%) (Auto) 0.2 % 0.1 % Neutrophils # (Auto) 26.2 TH/MM3 24.0 TH/MM3 Lymphocytes # (Auto) 1.1 TH/MM3 0.5 TH/MM3 Monocytes # (Auto) 1.3 TH/MM3 1.0 TH/MM3 Eosinophils # (Auto) 0.0 TH/MM3 0.0 TH/MM3 Basophils # (Auto) 0.0 TH/MM3 0.0 TH/MM3 CBC Comment AUTO DIFF AUTO DIFF Differential Total Cells Counted 100 100 Neutrophils % (Manual) 88 % 86 % Band Neutrophils % 3 % 2 % Lymphocytes % 3 % 6 % Monocytes % 6 % 5 % Neutrophils # (Manual) 26.0 TH/MM3 22.7 TH/MM3 Nucleated Red Blood Cells 2 /100 WBC 1 /100 WBC Differential Comment FINAL DIFF MANUAL FINAL DIFF MANUAL Platelet Estimate LOW LOW Platelet Morphology Comment ENLARGED NORMAL Basophilic Stippling FAINT Keratocytes OCC Metamyelocytes 1 % Laboratory Tests Test 12/12/16 03:35 12/13/16 05:15 Blood Urea Nitrogen 77 MG/DL 96 MG/DL Creatinine 3.91 MG/DL 4.50 MG/DL Random Glucose 214 MG/DL 194 MG/DL Total Protein 5.8 GM/DL 5.4 GM/DL Albumin 2.9 GM/DL 2.4 GM/DL Calcium Level 8.1 MG/DL 8.3 MG/DL Alkaline Phosphatase 274 U/L 269 U/L Aspartate Amino Transf (AST/SGOT) 41 U/L 38 U/L Alanine Aminotransferase (ALT/SGPT) 50 U/L 48 U/L Total Bilirubin 3.6 MG/DL 3.0 MG/DL Sodium Level 139 MEQ/L 139 MEQ/L Potassium Level 3.6 MEQ/L 3.3 MEQ/L Chloride Level 99 MEQ/L 99 MEQ/L Carbon Dioxide Level 26.2 MEQ/L 23.3 MEQ/L Anion Gap 14 MEQ/L 17 MEQ/L Estimat Glomerular Filtration Rate 11 ML/MIN 10 ML/MIN Microbiology Date/Time Source Procedure Growth Status 12/12/16 17:20 Sputum Endotracheal Gram Stain - Final Resulted 12/12/16 17:20 Sputum Endotracheal Sputum Culture - Preliminary IMMATURE GROWTH - REINCUBATE Resulted Imaging Last Impressions Catheter Placement X-Ray 12/13/16 0000 Signed Impressions: Service Date/Time: November 14:14 - CONCLUSION: Uncomplicated line placement as above. Nain Sharma Jr., MD Head CT 12/11/16 0000 Signed Impressions: Service Date/Time: Sunday, December 11, 2016 17:09 - CONCLUSION: 1. Minimal chronic sinusitis in the sphenoid sinuses bilaterally. 2. Bilateral acute mastoiditis. 3. Otherwise negative. Anatomic detail is somewhat limited due to motion artifact, however. Jamel Johns MD Chest CT 12/11/16 0000 Signed Impressions: Service Date/Time: Sunday, December 11, 2016 17:15 - CONCLUSION: Small bibasilar consolidation and/or compressive collapse and bilateral pleural effusions. Kristen Deleon MD Abdomen/Pelvis CT 12/11/16 0000 Signed Impressions: Service Date/Time: Sunday, December 11, 2016 17:15 - CONCLUSION: 1. Cholecystostomy tube in place with decrease in the amount of hyperdensity within the lumen. 2. Persistent bilateral pleural effusions, stable. Persistent free fluid in the pelvis, slightly decreased. 3. Increase in the amount of induration of the lateral abdominal wall and pelvic subcutaneous tissues an increase swelling of the lateral musculature Nain Mejia MD Chest X-Ray 12/09/16 0600 Signed Impressions: Service Date/Time: Friday, December 09, 2016 04:06 - CONCLUSION: 1. Interval placement of nasogastric tube. 2. Bibasal opacities remain. Josef Luther MD Abdomen X-Ray 12/09/16 0000 Signed Impressions: Service Date/Time: Friday, December 09, 2016 12:19 - CONCLUSION: OG tube tip in the distal stomach. Fermin Wills MD Abdomen CT 12/08/16 0000 Signed Impressions: Service Date/Time: Thursday, December 08, 2016 17:52 - CONCLUSION: 1. Cholecystostomy tube in good position. Nain Sharma Jr., MD Percutaneous Cholangiogram 12/03/16 0000 Signed Impressions: Service Date/Time: Saturday, December 03, 2016 14:31 - CONCLUSION: Uncomplicated percutaneous cholecystostomy as above. Nain Sharma Jr., MD Liver Ultrasound 12/02/16 0000 Signed Impressions: Service Date/Time: Friday, December 02, 2016 19:12 - CONCLUSION: 1. Cholelithiasis with wall thickening and trace pericholecystic fluid. 2. No evidence of biliary duct distention. 3. No other significant abnormality. Jak Hughes MD Physical Exam CONSTITUTIONAL/GENERAL: This is an adequately nourished patient, in no apparent distress. TUBES/LINES/DRAINS: biliary drain in place with small amount of serosang fluid SKIN: less jaundice, rashes, or lesions. . Skin temperature appropriate. Not diaphoretic. HEAD: Atraumatic. Normocephalic. EYES: Pupils equal and round and reactive. very mild scleral icterus. No injection or drainage. Fundi not examined. ENT: Hearing not assessed. Nose without bleeding or purulent drainage. Oraly intubated NECK: Trachea midline. Supple, nontender. CARDIOVASCULAR: Regular rate and rhythm without murmurs, gallops, or rubs. No JVD. Peripheral pulses symmetric. well perfused RESPIRATORY/CHEST: Symmetric, unlabored respirations. Clear to auscultation. Breath sounds equal bilaterally. No wheezes, rales, or rhonchi. GASTROINTESTINAL: Abdomen soft, no reaction to papation + distended. No hepato- splenomegaly, or palpable masses. Drain in place with serosang d/c GENITOURINARY: Without palpable bladder distension. Peterson catheter in place with small amount of cloudy urine MUSCULOSKELETAL: Extremities without clubbing, cyanosis, diffuse 4+ edema. No mottling or clubbing. NEUROLOGICAL: Sedated currently, off sedatin she opens eyes to touch not tracking or folowing commands PSYCHIATRIC: unabe to assess Assessment & Plan Remarks Billiary sepsis ? uncontrolled as of today WBC trending up, pts and fibrinogen down Multi-organ failure: acute VDRF ARF, on HD Hypotension, resolved, currently off pressors Gram negative sepsis - biliary Acute calculous cholecystitis sp cholecystostomy tube placement - growing enterococccus chirinos S and >=3 MIXED ENTERIC GRAM NEGATIVE RODS in the bile clx - not much drainage ? E.coli UTI vs colonisatrion ? PNA vs ARDS - growing E.coli in sputum R to zosyn Now growing Steno malt, also S to levaquine Critical, seems more stable today Leukocytosis, leukemoid reaction - WBC even worse today Fibrinogen trending up today, plts dwn - likely DIC Critically ill, appears to be more stable today Mental status change : improved cont zosyn cont levaqine for zosyn-R E.coli and steno malt in the sputum dw Dr Deidra Garcia RN dw Dr Portillo (gen surgery) Jina Ramos MD Dec 13, 2016 17:09
--- NOTE | 2016-12-13 22:47 | HHI.PR ---
Subjective Subjective Notes improved overnight Objective Vitals/I&O Vital Signs Date Time Temp Pulse Resp B/P (MAP) Pulse Ox O2 Delivery O2 Flow Rate FiO2 12/13/16 20:00 35 12/13/16 19:49 100 12/13/16 18:00 81 12/13/16 16:00 98.1 18 138/66 (90) Labs Laboratory Tests Test 12/13/16 00:00 12/13/16 05:15 Hemoglobin 8.3 8.0 Hematocrit 24.8 23.2 White Blood Count 25.5 Red Blood Count 2.61 Mean Corpuscular Volume 88.9 Mean Corpuscular Hemoglobin 30.7 Mean Corpuscular Hemoglobin Concent 34.5 Red Cell Distribution Width 16.0 Platelet Count 42 Mean Platelet Volume 10.3 Neutrophils (%) (Auto) 94.3 Lymphocytes (%) (Auto) 1.8 Monocytes (%) (Auto) 3.8 Eosinophils (%) (Auto) 0.0 Basophils (%) (Auto) 0.1 Neutrophils # (Auto) 24.0 Lymphocytes # (Auto) 0.5 Monocytes # (Auto) 1.0 Eosinophils # (Auto) 0.0 Basophils # (Auto) 0.0 CBC Comment AUTO DIFF Differential Total Cells Counted 100 Neutrophils % (Manual) 86 Band Neutrophils % 2 Lymphocytes % 6 Monocytes % 5 Neutrophils # (Manual) 22.7 Metamyelocytes 1 Nucleated Red Blood Cells 1 Differential Comment FINAL DIFF MANUAL Platelet Estimate LOW Platelet Morphology Comment NORMAL Blood Urea Nitrogen 96 Creatinine 4.50 Random Glucose 194 Total Protein 5.4 Albumin 2.4 Calcium Level 8.3 Alkaline Phosphatase 269 Aspartate Amino Transf (AST/SGOT) 38 Alanine Aminotransferase (ALT/SGPT) 48 Total Bilirubin 3.0 Sodium Level 139 Potassium Level 3.3 Chloride Level 99 Carbon Dioxide Level 23.3 Anion Gap 17 Estimat Glomerular Filtration Rate 10 Date/Time Source Procedure Growth Status 12/09/16 15:13 Blood Peripheral Aerobic Blood Culture - Preliminary NO GROWTH IN 4 DAYS Resulted 12/09/16 15:13 Blood Peripheral Anaerobic Blood Culture - Preliminary NO GROWTH IN 4 DAYS Resulted 12/03/16 14:55 Fluid Bile Fluid Gram Stain - Final Complete 12/03/16 14:55 Body Fluid Culture - Final Enterococcus Faecalis Complete 12/12/16 17:20 Sputum Endotracheal Gram Stain - Final Resulted 12/12/16 17:20 Sputum Endotracheal Sputum Culture - Preliminary IMMATURE GROWTH - REINCUBATE Resulted 12/09/16 18:00 Urine Catheterized Urine Urine Culture - Final NO GROWTH IN 48 HOURS. Complete Radiology Last 48 hours Impressions Percutaneous Cholangiogram 12/03/16 0000 Signed Impressions: Service Date/Time: Saturday, December 03, 2016 14:31 - CONCLUSION: Uncomplicated percutaneous cholecystostomy as above. Nain Sharma Jr., MD Chest X-Ray 12/02/16 2305 Signed Impressions: Service Date/Time: Friday, December 02, 2016 23:12 - CONCLUSION: 1. Satisfactory position of endotracheal tube as above. 2. Uncomplicated line placement. No evidence of pneumothorax. Royal Messer MD Chest X-Ray 12/02/16 1217 Signed Impressions: Service Date/Time: Friday, December 02, 2016 12:56 - CONCLUSION: Cardiomegaly. Left lower lobe atelectasis versus pneumonia. Royal Messer MD Liver Ultrasound 12/02/16 0000 Signed Impressions: Service Date/Time: Friday, December 02, 2016 19:12 - CONCLUSION: 1. Cholelithiasis with wall thickening and trace pericholecystic fluid. 2. No evidence of biliary duct distention. 3. No other significant abnormality. Jak Hughes MD Abdomen/Pelvis CT 12/02/16 0000 Signed Impressions: Service Date/Time: Friday, December 02, 2016 15:09 - CONCLUSION: 1. No evidence of acute abdominal or pelvic process. No masses are identified. 2. Cholelithiasis 3. Left lower lobe atelectasis versus pneumonia. 4. A large hiatal hernia is present. 5. Diverticulosis without evidence of diverticulitis. Royal Messer MD Abdomen: Non-distended, Non-tender A/P Assessment and Plan 71yo female with sepsis, Acute cholecystitis, Sepsis, increased LFT, improved. still with ongoing sepsis, increased LFT, CT shows cholecystostomy tube in position, minimal output, possible cholangitis, may need ERCP, but PTC may be preferred if not stable for ERCP. Roly Portillo MD Dec 13, 2016 22:47
[2016-12-14] VITALS (74 sets, daily range): BP systolic 112–181; BP diastolic 58–103; PULSE 65–110; RESP 16–19; TEMP 97.9–98.4; O2SAT 97–100
[2016-12-14] MEDS: INSULIN NovoLIN REGULAR SUPPLEMENTAL SCALE SQ SCH ×4 (02:00→20:00)
[2016-12-14] MEDS: fentaNYL DRIP 250 ML IV PRN ×2 (03:03→20:02)
[2016-12-14] MEDS: HYDROCORTISONE SOD SUCCINATE 100 MG VIAL IV PUSH SCH ×4 (03:11→20:22)
[2016-12-14] MEDS: SODIUM CHLORIDE 0.9% FLUSH 10 ML FLUSH IV FLUSH PRN (03:11)
[2016-12-14] MEDS: CHLORHEXIDINE GLUCONATE 2 % 1 PACK (2 CLOTHS) TOP SCH ×2 (03:12→21:22)
[2016-12-14] MEDS: DILTIAZEM HCL 60 MG TAB PO SCH ×4 (05:38→23:37)
[2016-12-14] MEDS: PIPERACIL-TAZO 2.25 GM PREMIX 50 ML IV SCH ×4 (05:39→23:37)
[2016-12-14 06:59] LABS: HEMOGLOBIN 8.4 GM/DL (11.6-15.3); MEAN CELL VOLUME 90.7 FL (80.0-100.0); MEAN CORPUSCULAR HEMOGLOBIN 30.3 PG (27.0-34.0); MEAN CORPUSCULAR HGB CONC 33.4 % (32.0-36.0); MEAN PLATELET VOLUME 11.2 FL (7.0-11.0); PLATELET COUNT 46 TH/MM3 (150-450); RED BLOOD COUNT 2.76 MIL/MM3 (4.00-5.30); RED CELL DISTRIBUTION WIDTH 15.6 % (11.6-17.2)
[2016-12-14 07:26] LABS: ALBUMIN 2.2 GM/DL (3.4-5.0); ALKALINE PHOSPHATASE 281 U/L (45-117); ALT (GPT) 51 U/L (10-53); AST (GOT) 46 U/L (15-37); BLOOD UREA NITROGEN 76 MG/DL (7-18); CALCIUM 8.3 MG/DL (8.5-10.1); CHLORIDE 100 MEQ/L (98-107); CREATININE 3.83 MG/DL (0.50-1.00); GLOMERULAR FILTRATION RATE 12 ML/MIN (>89); GLUCOSE,RANDOM 232 MG/DL (74-106); SODIUM (NA) 139 MEQ/L (136-145); TOTAL BILIRUBIN ADULT 2.4 MG/DL (0.2-1.0); TOTAL PROTEIN 5.2 GM/DL (6.4-8.2)
[2016-12-14 08:39] LABS: BANDS 7 % (0-6); CORRECTED NUCLEATED RBC 2 /100 WBC (0-0); LYMPHOCYTES 4 % (9-44); MONOCYTES 5 % (0-8); NEUTROPHIL # MANUAL DIFF 15.5 TH/MM3 (1.8-7.7); NUCLEATED RED BLOOD CELL 2 (0-0); POLYS (SEG NEUTROPHILS) 84 % (16-70)
[2016-12-14 08:44] LABS: KERATOCYTES OCC (NORMAL)
[2016-12-14] MEDS: SODIUM CHLORIDE 0.9% FLUSH 10 ML FLUSH IV FLUSH SCH ×3 (09:00→20:22)
[2016-12-14] MEDS: DOCUSATE SODIUM 50 MG/SENNA 8.6 MG TAB PO SCH ×2 (09:10→19:32)
[2016-12-14] MEDS: FAMOTIDINE 20 MG/2 ML VIAL IV PUSH SCH (09:10)
[2016-12-14] MEDS: CHLORHEXIDINE 0.12% (ORAL KIT) 15 ML CUP MT SCH ×2 (09:10→20:00)
--- NOTE | 2016-12-14 09:23 | HHI.CCPN ---
Subjective Remarks/Hospital Course This is a 71-year-old female presents to the ED via EMS for evaluation of fever , shortness breath, vomiting, diarrhea, abdominal pain She reports that she's been short of breath for the past 2 weeks, but has progressed in the past 2 days. Patient has been seeing a clamp carrier operator for her shortness of breath, is not on home oxygen. The patient reported she has a history of smoking. She is also complaining of abdominal pain that started 2 days ago with vomiting and diarrhea. Patient has severe tenderness to mild palpation. She has history of SC. She received 500 mL normal saline IV bolus, and Zofran 4 mg IV. Critical care medicine was consulted. Subjective: 12/03: Tmax 100.9. Last evening the patient was noted to have significant respiratory decompensation with requirement for emergent intubation. The patient subsequently became hemodynamically unstable requiring vasopressor support. Patient is lightly sedated, and continues to have abdominal pain, and hypoactive bowel sounds, GI has been consulted. HIDA scan previously scheduled for this morning, after discussion with Dr Goodrich , plan for cholecystostomy tube placement by IR. Ultrasound liver showed no biliary duct distention but notable thickened gallbladder wall. 12/04: Tmax 100.4. Patient continues with severe metabolic acidosis, sodium bicarbonate infusion increased to 150 cc/hour yesterday afternoon. Antibiotics were expanded yesterday with addition of Micafungin and Diflucan. Blood cultures resulted with Enterobacter, Klebsiella pneumoniae and Escherichia coli. ID consulted recommendations appreciated. Patient is status post placement of percutaneous cholecystostomy tube . Patient now icteric, but LFTs are trending down. Records obtained from primary care physician with cardiology reports from earlier in the year, patient with noted pulmonary hypertension and NYHA class III. In-hospital echo pending. Patient continues on 3 pressors to maintain blood pressure. 12/05: Patient has been weaned off of vasopressor continues on to agents Gurinder- Synephrine, norepinephrine at low doses. Patient noted to still be thrombocytopenic platelet count decreased today HIT panel pending. INR remains elevated no active signs of bleeding liver function enzymes remain elevated. No urine output over the last 12 hours nephrology following discussion with for possible hemodialysis, will await nephrology recommendations. Sodium bicarbonate infusion discontinued. Patient remains alert GCS 11 T. 12/06: Afebrile. The patient continues on CRRT initiated last night, tolerating it well patient continues only on phenylephrine infusion to maintain MAP. The patient received 2 units of FFP per hematology/oncology recommendations. 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 12/07: Afebrile. Vasopressors discontinued at 4 AM, CRRT completed, patient will be transitioned to IHD 2 times a week. Patient was noted to be severely thrombocytopenic platelet count 32 ,plan for transfusions of platelets, fibrinogen level decreasing. Bile specimen noted to result Enterococcus faecalis, contacted Dr. Portillo general surgery updated him discussion regarding elective versus semielective laparoscopic cholecystectomy ,informed that no surgical intervention indicated at this time. Cholecystostomy tube continues to drain. 12/08: Afebrile. The patient has been transitioned to IHD 2 times a week. 3 L removal of fluid today. The patient remains hemodynamically stable off of all vasopressors greater than 24 hours at this time. A chin continues to have persistent leukocytosis with elevation in WBC count and downward trend up fibrinogen level . Cholecystostomy tube low output, CT scan abdomen pending. General surgery reconsulted to review surgical options for patient. 12/09 Patient is sedated with Fentanyl and intubated. s/p HD yesterday with removal 3L. NPO for possible OR today. 12/10 No events overnight. Sedated with Fentanyl and intubated. Afebrile. 12/11 Patient remains intubated and sedated with Fentanyl. Tolerated CPAP trials for 4 hrs yesterday. For HD today. Afebrile however her WBC increased 37 from 33. Moves spontaneously but does not follow commands. 12/12 Patient went into afib with RVR placed on Cardizem drip now at 5mg/hr on CPAP with PS 10, PEEP:5 and FIO2 35%. Afebrile. WBC is trending down. 12/13 No events overnight. For HD today. s/p transfusion 1unit PRBC yesterday. Afebrile. Seems more alert today. 12/14 Patient is sedated and intubated. s/p HD yesterday with removal 2L. Objective Vital Signs Date Time Temp Pulse Resp B/P (MAP) Pulse Ox O2 Delivery O2 Flow Rate FiO2 12/14/16 07:32 99 35 12/14/16 06:00 91 12/14/16 04:00 98.4 18 137/68 (91) Intake and Output 12/14/16 12/14/16 12/15/16 08:00 16:00 00:00 Intake Total 644 ml Output Total 280 ml Balance 364 ml Result Diagram: 12/14/1630 12/14/16529 Other Results Laboratory Tests Test 12/14/16 05:30 White Blood Count 17.0 TH/MM3 Red Blood Count 2.76 MIL/MM3 Hemoglobin 8.4 GM/DL Hematocrit 25.0 % Mean Corpuscular Volume 90.7 FL Mean Corpuscular Hemoglobin 30.3 PG Mean Corpuscular Hemoglobin Concent 33.4 % Red Cell Distribution Width 15.6 % Platelet Count 46 TH/MM3 Mean Platelet Volume 11.2 FL CBC Comment AUTO DIFF Differential Total Cells Counted 100 Neutrophils % (Manual) 84 % Band Neutrophils % 7 % Lymphocytes % 4 % Monocytes % 5 % Neutrophils # (Manual) 15.5 TH/MM3 Nucleated Red Blood Cells 2 /100 WBC Differential Comment FINAL DIFF MANUAL Platelet Estimate LOW Platelet Morphology Comment NORMAL Keratocytes OCC Blood Urea Nitrogen 76 MG/DL Creatinine 3.83 MG/DL Random Glucose 232 MG/DL Total Protein 5.2 GM/DL Albumin 2.2 GM/DL Calcium Level 8.3 MG/DL Alkaline Phosphatase 281 U/L Aspartate Amino Transf (AST/SGOT) 46 U/L Alanine Aminotransferase (ALT/SGPT) 51 U/L Total Bilirubin 2.4 MG/DL Sodium Level 139 MEQ/L Potassium Level 3.2 MEQ/L Chloride Level 100 MEQ/L Carbon Dioxide Level 25.0 MEQ/L Anion Gap 14 MEQ/L Estimat Glomerular Filtration Rate 12 ML/MIN Imaging Last Impressions Catheter Placement X-Ray 12/13/16 0000 Signed Impressions: Service Date/Time: November 14:14 - CONCLUSION: Uncomplicated line placement as above. Nain Sharma Jr., MD Head CT 12/11/16 0000 Signed Impressions: Service Date/Time: Sunday, December 11, 2016 17:09 - CONCLUSION: 1. Minimal chronic sinusitis in the sphenoid sinuses bilaterally. 2. Bilateral acute mastoiditis. 3. Otherwise negative. Anatomic detail is somewhat limited due to motion artifact, however. Jamel Johns MD Chest CT 12/11/16 0000 Signed Impressions: Service Date/Time: Sunday, December 11, 2016 17:15 - CONCLUSION: Small bibasilar consolidation and/or compressive collapse and bilateral pleural effusions. Kristen Deleon MD Abdomen/Pelvis CT 12/11/16 0000 Signed Impressions: Service Date/Time: Sunday, December 11, 2016 17:15 - CONCLUSION: 1. Cholecystostomy tube in place with decrease in the amount of hyperdensity within the lumen. 2. Persistent bilateral pleural effusions, stable. Persistent free fluid in the pelvis, slightly decreased. 3. Increase in the amount of induration of the lateral abdominal wall and pelvic subcutaneous tissues an increase swelling of the lateral musculature Nain Mejia MD Chest X-Ray 12/09/16 0600 Signed Impressions: Service Date/Time: Friday, December 09, 2016 04:06 - CONCLUSION: 1. Interval placement of nasogastric tube. 2. Bibasal opacities remain. Josef Luther MD Abdomen X-Ray 12/09/16 0000 Signed Impressions: Service Date/Time: Friday, December 09, 2016 12:19 - CONCLUSION: OG tube tip in the distal stomach. Fermin Wills MD Abdomen CT 12/08/16 0000 Signed Impressions: Service Date/Time: Thursday, December 08, 2016 17:52 - CONCLUSION: 1. Cholecystostomy tube in good position. Nain Sharma Jr., MD Percutaneous Cholangiogram 12/03/16 0000 Signed Impressions: Service Date/Time: Saturday, December 03, 2016 14:31 - CONCLUSION: Uncomplicated percutaneous cholecystostomy as above. Nain Sharma Jr., MD Liver Ultrasound 12/02/16 0000 Signed Impressions: Service Date/Time: Friday, December 02, 2016 19:12 - CONCLUSION: 1. Cholelithiasis with wall thickening and trace pericholecystic fluid. 2. No evidence of biliary duct distention. 3. No other significant abnormality. Jak Hughes MD Objective Remarks GENERAL: Critically ill appearing appropriately stated age female intubated and mild sedation SKIN: Warm and dry. HEAD: Atraumatic. Normocephalic. EYES: Pupils equal and round. Mild scleral icterus, decreasing. No injection or drainage. Extraocular movements intact ENT: No nasal bleeding or discharge. Mucous membranes pink and moist. Orotracheally intubated NECK: Trachea midline. No JVD. CARDIOVASCULAR: Normal rate, regular rhythm. RESPIRATORY: No accessory muscle use. Clear to auscultation. Breath sounds equal bilaterally. GASTROINTESTINAL: Abdomen soft,nondistended, tender to palpation. No guarding. MUSCULOSKELETAL: Extremities without clubbing, cyanosis, or edema. No obvious deformities. Right groin Vas-Cath site soft no erythema/drainage NEUROLOGICAL: Awake, Procedures 12/02-abdominal ultrasound 12/03- percutaneous cholecystostomy tube placement 12/05-patient of CRRT, completion 12/07 12/08-initiation of IHD Date of Insertion: Dec 02, 2016 Line: Central Venous Catheter Side: Left Location: Femoral A/P Assessment and Plan ASSESSMENT Abdominal pain Hiatal hernia Diverticulitis Cholelithiasis with cholecystitis Transaminitis Nausea Hyperlipidemia Hypertension History of SC Coronary artery disease-S/P angioplasty 2 History of systolic CHF Acute hypoxemic respiratory failure Probable community-acquired pneumonia Hypokalemia Alcohol use disorder Elevated creatinine Pancytopenia Transaminitis Acute renal failure Multisystem organ failure secondary to septic shock Acute decompensated systolic heart failure Coagulopathy Bandemia Persistent leukocytosis Critical illness polyneuropathy PLAN Neurologic: Neurochecks per ICU protocol Fentanyl infusion for ventilator synchrony- Daily sedation vacation. CT brain: Minimal chronic sinusitis in the sphenoid sinuses bilaterally. Bilateral acute mastoiditis. Otherwise negative EEG yesterday: Suboptimal study due to a lot of artifact. Study consistent with encephalopathic process. No epileptic activity. Monitor for signs of alcohol withdrawal Seizure precautions s/p folate and MVI. Thiamine 100mg daily Respiratory: Continue with vent support keep sat >92% Bronchodilators 36 hours scheduled, every 2 hours PRN 12/02-intubation 7.5 ETT Ventilator bundle. SBT daily as arti. CT chest: Small bibasilar consolidation Cardiovascular: On PO Cardizem 60mg Q6-Monitor HR and BP keep MAP>65mmHg Taper steroids- Decrease HC 50mg Q6 Initial troponin 0.07->0.11->0.49. Possibly secondary to acute Kidney injury, and low-flow cardiac output state 12/04 echo results-EF 50% [place] [phone] Echo 10/03/15 per cardiology medical records([place])-normal LV function,EF 56%, mild septal LVH, mild TR, mild PAH Patient's home meds include ASA 81mg, Metoprolol 50 mg ER (recently discontinued secondary to hypotension by compliance review officer 3 weeks ago) will not restart secondary to hemodynamic instability, Rosvustatin at this time will not continue secondary to elevated LFT's continue to trend. NYHA classification III-per previous records Renal Monitor renal function, I/O's, avoid nephrotoxins. s/p HD 12/11 witj 3L removal. s/p HD 12/13 with 3L removal.. Nephrology following-Dr. Carlos, 12/05 initiation of CRRT 12/08 initiation of IHD-schedule per nephrology FEN/GI: Tube feeds with-Nepro @45ml/hr CT abd/pelvis: Cholecystostomy tube in place with decrease in the amount of hyperdensity within the lumen.. Persistent bilateral pleural effusions, stable. Persistent free fluid in the pelvis, slightly decreased. Increase in the amount of induration of the lateral abdominal wall and pelvic subcutaneous tissues an increase swelling of the lateral musculature GI and surgery are following. Discussed with Dr. [place] yesterday. 12/02 CT abdomen pelvis-diverticulosis without diverticulitis, large hiatal hernia, cholelithiasis, no acute process ultrasound abdomen-no biliary duct dilatation, cholelithiasis with cholecystitis trace pericholecystic fluid 12/03- percutaneous cholecystostomy drain placement percutaneous cholecystostomy draining (Bile- Enterococcus faecalis)- monitor drainage 12/[address] Pathak bile fluid-Enterococcus faecalis-no surgical intervention at this time, plan for tentative semi-elective versus elective cholecystectomy in the future 12/08 general surgery reconsulted to review surgical options-vasopressor pressor support is not required, patient remains with elevated leukocytosis, will follow up recommendations Hold statin in the setting of elevated LFTs 12/07 CRRT discontinued patient will begin IHD 2 times a week Heme/ID: ID is following-Dr. Ramos, abx per ID (Zosyn, Levaquin)WBC is trending down 12/09 Sputum cx: S. Maltophilia, Mold species. Follow up on sputum cx from 12/12 12/09 Pancultured- BC, Urine-NGTD 12/03 blood cultures-Enterobacter, Klebsiella pneumoniae, Escherichia coli 12/03 Legionella, influenza , pneumococcal antigen- negative 12/03 sputum culture-E coli 12/03: Bile fluid-Enterococcus faecalis Hematology oncology following 12/05 HIT panel-negative 10/19 2 units of FFP per hematology recommendations 12/07 transfuse 2 units of platelets 12/08-fibrinogen level Downward trend 392->213-> 165- transfuse 1 unit of cryoprecipitate Monitor CBC, s/p transfusion 1unit PRBC 12/12 Endocrine: Glucose monitoring per ICU protocol -- SSI MSK: PT evaluation and treat Prophylaxis: GI Prophylaxis Famotidine DVT Prophylaxis -- SCDs Heparin 5000 SQ BID (on Hold) in the setting of thrombocytopenia Lines: Central line left IJ placed 12/02. Right IJ vascath placed 12/13 by IR. Palliative care is following Level 3 Kassandra Goodwin MD Dec 14, 2016 09:22
--- NOTE | 2016-12-14 12:25 | HHI.NPPN ---
Subjective History of Present Illness 71 year old with septic shock, ARF Additional Remarks Patient remain intubated, sedated and clinically same. Objective Data Data Vital Signs Date Time Temp Pulse Resp B/P (MAP) Pulse Ox O2 Delivery O2 Flow Rate FiO2 12/14/16 07:32 99 35 12/14/16 06:00 91 12/14/16 04:02 98 35 12/14/16 04:00 80 12/14/16 04:00 35 12/14/16 04:00 98.4 80 18 137/68 (91) 98 12/14/16 02:00 65 12/14/16 00:00 98.1 89 19 142/72 (95) 98 12/14/16 00:00 89 12/14/16 00:00 35 12/13/16 23:38 100 35 12/13/16 22:00 80 12/13/16 20:00 83 12/13/16 20:00 98.3 83 19 138/63 (88) 100 12/13/16 20:00 35 12/13/16 19:49 100 35 12/13/16 18:00 81 12/13/16 17:21 100 35 12/13/16 16:00 79 12/13/16 16:00 98.1 78 18 138/66 (90) 100 12/13/16 16:00 35 12/13/16 15:13 100 35 12/13/16 13:50 97 -: 12/14/16 0530 12/14/16 0530 Physical Exam Neck Neck Exam: Neck Supple Pulmonary Resp Exam: Clear Bilaterally Cardiology CV Exam: Regular Gastrointestinal/Abdomen GI Exam: Soft, Bowel Sounds Present, Non-Distended Integumentary Skin Exam: Clear Extremeties Extremities Exam: Pitting Edema, Dependent Edema Assessment/Plan Problem List: (1) Acute kidney injury ICD Codes: N17.9 - Acute kidney failure, unspecified Status: Acute Plan: Patient has septic shock and acute tubular necrosis making small amount of urine, Continue supportive care Continue to monitor avoid Nephrotoxins. Patient now started on intermittent HD, she going to have cholecystostomy tube manipulation Vas-Cath has been exchanged Next dialysis tomorrow Urine output is 500 cc to 650 cc she has Anasarca (2) Acute cholecystitis ICD Codes: K81.0 - Acute cholecystitis Plan: Status post cholecystostomy (3) Sepsis ICD Codes: A41.9 - Sepsis, unspecified organism Status: Acute Plan: On antibiotics Problem Qualifiers (1) Sepsis: Qualified Codes: A41.9 - Sepsis, unspecified organism Myrtle Carlos MD Dec 14, 2016 12:24
--- NOTE | 2016-12-14 13:13 | PD.ONC.PN ---
Subjective Subjective Remarks Afebrile overnight. Patient intubated. No bleeding. Objective Data Date Time Temp Pulse Resp B/P (MAP) Pulse Ox O2 Delivery O2 Flow Rate FiO2 12/14/16 07:32 99 35 12/14/16 06:00 91 12/14/16 04:02 98 35 12/14/16 04:00 80 12/14/16 04:00 35 12/14/16 04:00 98.4 80 18 137/68 (91) 98 12/14/16 02:00 65 12/14/16 00:00 98.1 89 19 142/72 (95) 98 12/14/16 00:00 89 12/14/16 00:00 35 12/13/16 23:38 100 35 12/13/16 22:00 80 12/13/16 20:00 83 12/13/16 20:00 98.3 83 19 138/63 (88) 100 12/13/16 20:00 35 12/13/16 19:49 100 35 12/13/16 18:00 81 12/13/16 17:21 100 35 12/13/16 16:00 79 12/13/16 16:00 98.1 78 18 138/66 (90) 100 12/13/16 16:00 35 12/13/16 15:13 100 35 12/13/16 13:50 97 12/14/16 12/14/16 12/14/16 07:00 15:00 23:00 Intake Total 644 ml Output Total 280 ml Balance 364 ml Result Diagram: 12/14/16 0530 12/14/16 0530 Laboratory Results Laboratory Tests Test 12/14/16 05:30 White Blood Count 17.0 TH/MM3 Red Blood Count 2.76 MIL/MM3 Hemoglobin 8.4 GM/DL Hematocrit 25.0 % Mean Corpuscular Volume 90.7 FL Mean Corpuscular Hemoglobin 30.3 PG Mean Corpuscular Hemoglobin Concent 33.4 % Red Cell Distribution Width 15.6 % Platelet Count 46 TH/MM3 Mean Platelet Volume 11.2 FL CBC Comment AUTO DIFF Differential Total Cells Counted 100 Neutrophils % (Manual) 84 % Band Neutrophils % 7 % Lymphocytes % 4 % Monocytes % 5 % Neutrophils # (Manual) 15.5 TH/MM3 Nucleated Red Blood Cells 2 /100 WBC Differential Comment FINAL DIFF MANUAL Platelet Estimate LOW Platelet Morphology Comment NORMAL Keratocytes OCC Blood Urea Nitrogen 76 MG/DL Creatinine 3.83 MG/DL Random Glucose 232 MG/DL Total Protein 5.2 GM/DL Albumin 2.2 GM/DL Calcium Level 8.3 MG/DL Alkaline Phosphatase 281 U/L Aspartate Amino Transf (AST/SGOT) 46 U/L Alanine Aminotransferase (ALT/SGPT) 51 U/L Total Bilirubin 2.4 MG/DL Sodium Level 139 MEQ/L Potassium Level 3.2 MEQ/L Chloride Level 100 MEQ/L Carbon Dioxide Level 25.0 MEQ/L Anion Gap 14 MEQ/L Estimat Glomerular Filtration Rate 12 ML/MIN Culture Results Microbiology Date/Time Source Procedure Growth Status 12/12/16 17:20 Sputum Endotracheal Gram Stain - Final Resulted 12/12/16 17:20 Sputum Culture - Preliminary Gram Negative Primitivo Resulted Administered Medications Medications (Trade) Dose Ordered Sig/Dhruv Route PRN Reason Start Time Stop Time Status Last Admin Dose Admin Sodium Chloride (NS Flush) 2 ml UNSCH PRN IV FLUSH FLUSH AFTER USING IV ACCESS 12/02/16 16:15 12/14/16 03:11 Sodium Chloride (NS Flush) 2 ml BID IV FLUSH 12/02/16 21:00 12/14/16 09:11 Famotidine (Pepcid Inj) 20 mg DAILY IV PUSH 12/02/16 21:00 12/14/16 09:10 Heparin Sodium (Porcine) (Heparin Inj) 5,000 units Q12H SQ 12/02/16 17:00 Future Hold 12/13/16 14:53 Miscellaneous Information 1 [id number] XX 12/02/16 16:15 12/02/16 16:15 Chlorhexidine Gluconate (Chlorhexidine 2% Cloth) Taper DAILY@04 TOP 12/03/16 04:00 11/29/17 03:59 12/14/16 03:12 Senna/Docusate Sodium (Keely-Colace) 1 tab BID PO 12/02/16 21:00 12/14/16 09:10 Lorazepam (Ativan Inj) 1 mg Q4H PRN IV PUSH ANXIETY 12/02/16 16:45 12/09/16 10:20 Chlorhexidine Gluconate (Peridex 0.12% Liq) 15 ml BID@08,20 MT 12/03/16 08:00 12/14/16 09:10 Fentanyl Citrate 250 ml @ 5 mls/hr TITRATE PRN IV SEDATION 12/02/16 22:15 12/14/16 03:03 Sodium Chloride (NS Flush) DAILY IV FLUSH 12/03/16 09:00 12/13/16 12:47 Sodium Chloride (NS Flush) UNSCH PRN IV FLUSH SEE PROTOCOL 12/02/16 23:15 12/06/16 20:52 Artificial Tears (Tears Naturale Opth Soln) 1 drop Q8HR PRN EACH EYE DRY EYE 12/03/16 08:15 12/04/16 17:22 Sodium Chloride 1,000 ml @ 0 mls/hr UNSCH PRN OTHER SEE LABEL COMMENTS 12/05/16 17:30 12/07/16 02:14 Sodium Chloride 1,000 ml @ 0 mls/hr Q0M PRN OTHER For Prime & Rinse Back 12/07/16 10:56 12/08/16 12:21 Albumin Human 100 ml @ 60 mls/hr UNSCH PRN IV WITH DIALYSIS 12/07/16 11:00 12/11/16 09:05 Gentamicin Sulfate (Gentamicin (Dialysis) Inj) 20 mg UNSCH PRN OTHER WITH DIALYSIS 12/07/16 11:00 12/11/16 08:47 Epoetin Ronald (Epogen Inj) 10,000 units UNSCH PRN IV PUSH WITH DIALYSIS 12/07/16 11:00 12/11/16 08:47 Piperacillin Sod/ Tazobactam Sod 50 ml @ 100 mls/hr Q6H IV 12/07/16 17:00 12/14/16 10:19 Levofloxacin/ Dextrose 100 ml @ 100 mls/hr Q48H IV 12/07/16 16:00 12/13/16 15:15 Diltiazem HCl (Cardizem) 60 mg Q6HR PO 12/12/16 08:15 12/14/16 10:19 Hydrocortisone Sodium Succinate (SoluCORTEF INJ) 50 mg Q6H IV PUSH 12/13/16 15:00 12/14/16 13:07 Insulin Human Regular (NovoLIN R SUPPLEMENTAL SCALE) 1 Q6H SQ 12/13/16 14:00 12/14/16 13:07 Objective Remarks GENERAL: Intubated, sedated female supine in bed. SKIN: Warm and dry. Left forearm bandages with serous fluid. no bleeding. HEAD: Normocephalic. EYES: No injection or drainage. NECK: Supple, trachea midline. CARDIOVASCULAR: Regular rate and rhythm RESPIRATORY: anterior dennis with occasional rhonchi. on mechanical ventilation GASTROINTESTINAL: Abdomen mildly distended. EXTREMITIES: No cyanosis. +edema all extremities. NEUROLOGICAL: intubated, sedated Assessment/Plan Problem List: (1) Pancytopenia ICD Codes: D61.818 - Other pancytopenia Plan: 12/14: monitor clinically for bleeding. monitor CBC --due to bone marrow suppression from sepsis. --expect her pancytopenia to get worse in the next several days if sepsis is not under control. --monitor her CBC closely and provide blood product support as needed. (2) Sepsis ICD Codes: A41.9 - Sepsis, unspecified organism Status: Acute (3) Acute kidney injury ICD Codes: N17.9 - Acute kidney failure, unspecified Status: Acute Plan: --receiving HD on Assessment 71 y/o female with coagulopathy d/t sepsis. Attending Statement Patient remains on the ventilator Hemodynamically stable low plat but stable. no bleeding The exam, history, and the medical decision-making described in the above note were completed with the assistance of the mid-level provider. I reviewed and agree with the findings presented. I attest that I had a [id number] encounter with the patient on the same day, and personally performed and documented my assessment and findings in the medical record. Problem Qualifiers (1) Sepsis: Qualified Codes: A41.9 - Sepsis, unspecified organism Tatum Proctor Dec 14, 2016 13:13 Lana Justice MD Dec 14, 2016 16:50
[2016-12-14] MEDS ORDERED: IOHEXOL 350 MG/ML 50 ML BTL (for RAD DIAG) OTHER ONE (14:32)
--- NOTE | 2016-12-14 14:33 | PD.RAD ---
Post Procedure Progress Note Pre Procedure Diagnosis: (1) Acute cholecystitis Post Procedure Diagnosis: (1) Acute kidney injury Procedure Date: Dec 14, 2016 Supervising Radiologist: Nain Sharma JR Proceduralist/Assist: RT Vania(R), RT Emani(R) Anesthesia: Other Plan of Activity Patient to Unit: Critical Care Patient Condition: Fair Additional Comments: Aleah tube injection performed. Tube in good position. GB markedly abnormal. Cystic duct occluded. Irrigation performed. Changed drainage from gravity to accordion suction device. See PACS Report for procedural detail/treatment Jr. Zachary,Nain Valderrama MD Dec 14, 2016 14:33
--- NOTE | 2016-12-14 15:25 | RADRPT ---
EXAM DATE/TIME: 12/14/2016 14:03 [facility] COMPARISON: No previous studies available for comparison. INDICATIONS : Patient presents with cholangitis in need of cholangiogram for further evaluation. MEDICAL HISTORY : Pneumonia 2011 [place] 1994 Hypertension [place] Hiatal hernia Cholelithiasis Diverticulitis Transaminitis Hyperlipidemia CHF CAD Pancytopenia Hypokalemia Hypomagnesemia SURGICAL HISTORY : Angioplasty x2 Right total knee replacement Anterior cervical discectomy and fusion ENCOUNTER: Subsequent ACUITY: 2 weeks PAIN SCORE: 0/10 LOCATION: Unresponsive FLUORO TIME: 0.7 minutes IMAGE SERIES: 2 CONTRAST: 14 cc Omnipaque (iohexol) 350 PROCEDURE : 1. <<cholangiogram through an existing tube> The risks, benefits and alternatives to the procedure were explained and verbal and written consent w as obtained. The site was prepped in sterile fashion. Full sterile technique was used, including ca p, mask, sterile gloves and gown and a large sterile sheet. Hand hygiene and 2% chlorhexidine and/or betadine/alcohol prep was utilized per protocol for cutaneous antisepsis. Injection of contrast into the cholecystostomy tube was performed under fluoroscopic control. The gal lbladder lumen is markedly irregular. An elliptical filling defect likely related to a sludge ball ob served. The cystic duct is occluded. The cholecystostomy tube is in good position. CONCLUSION: 1. Cholecystostomy tube in good position. Continued occlusion of the cystic duct. The gallbladder lum en was irrigated and an accordion device placed on the cholecystostomy tube. Nain Sharma Jr., MD on December 14, 2016 at 15:17 Board Certified Radiologist. This report was verified electronically.
--- NOTE | 2016-12-14 16:33 | HHI.HCPN ---
Reason for visit a. To assist with evaluation and management of symptoms including: dyspnea, pain, and debility b. To assist medical decision maker(s) with: better understanding of current medical conditions; weighing benefits/burdens of medical treatment options; making medical treatment decisions. . Subjective/Interval History Patient seen and examined, chart reviewed, laboratory data reviewed, Patient remains intubated and mechanically ventilated. Neurological status remains unchanged, patient opens eyes spontaneously, does not track, does not follow commands. Leukocytosis is still slowly improving, WBCs down to 17.0 from 25.56 yesterday, afebrile, hemodynamically stable. Family/friend interactions Face to face meeting with patient's , updated on clinica status, discussed overall prognosis and likely trajectories in the comings days to weeks. Discussed code status in multiple scenarios but most importantly in the setting of reintubation if the patient is able to be safely medically extubated in the coming days. 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 . Advance Directives Living Will: Copy in medical record Health Care Surrogate: Copy in medical record Durable Power of Seed Potato Cutter: Copy in medical record Advance Directive Specifics Date completed: 01/04/15 . Health Care Surrogate(s): Marco Antonio Mark () Alternate HCS: Alvin Flores or Pippa Flores . Documented care wishes: Standard living will verbiage, patient documented she would not want life prolonging measures if she had a terminal condition or was in a persistent vegetative state. . Objective Vital Signs Date Time Temp Pulse Resp B/P (MAP) Pulse Ox O2 Delivery O2 Flow Rate FiO2 12/14/16 13:40 100 100 12/14/16 13:35 78 19 176/75 (108) 100 12/14/16 13:35 78 12/14/16 13:30 74 12/14/16 13:30 74 19 151/74 (99) 99 12/14/16 13:26 74 18 181/79 (113) 98 12/14/16 13:26 74 12/14/16 13:20 74 12/14/16 13:20 74 19 141/80 (100) 100 12/14/16 13:15 74 18 147/71 (96) 100 12/14/16 13:15 74 12/14/16 13:15 100 35 12/14/16 13:10 76 12/14/16 13:10 76 19 176/77 (110) 100 12/14/16 13:05 77 19 153/78 (103) 100 12/14/16 13:05 77 12/14/16 13:00 74 12/14/16 13:00 74 18 167/74 (105) 100 12/14/16 12:55 76 12/14/16 12:55 76 18 155/74 (101) 99 12/14/16 12:50 73 18 177/77 (110) 99 12/14/16 12:50 73 12/14/16 12:45 79 12/14/16 12:45 79 18 154/76 (102) 99 12/14/16 12:40 68 18 112/64 (80) 100 12/14/16 12:40 68 12/14/16 12:35 68 12/14/16 12:35 68 18 114/64 (81) 100 12/14/16 12:30 67 18 121/58 (79) 100 12/14/16 12:30 67 12/14/16 12:25 69 18 121/63 (82) 100 12/14/16 12:25 69 12/14/16 12:20 71 12/14/16 12:20 71 18 127/64 (85) 100 12/14/16 12:15 72 12/14/16 12:15 72 18 145/72 (96) 99 12/14/16 12:10 74 12/14/16 12:10 74 19 160/75 (103) 99 12/14/16 12:05 76 18 135/74 (94) 99 12/14/16 12:05 76 12/14/16 12:00 35 12/14/16 12:00 76 12/14/16 12:00 76 18 163/77 (105) 99 12/14/16 11:35 78 12/14/16 11:30 82 12/14/16 11:25 72 12/14/16 11:20 72 12/14/16 11:15 73 12/14/16 11:10 73 12/14/16 11:05 74 12/14/16 11:00 75 12/14/16 10:55 79 12/14/16 10:50 81 12/14/16 10:45 78 12/14/16 10:40 81 12/14/16 10:35 82 12/14/16 10:30 82 12/14/16 10:25 84 12/14/16 10:20 86 12/14/16 10:15 83 12/14/16 10:10 86 12/14/16 10:05 84 12/14/16 10:00 110 12/14/16 09:30 82 12/14/16 09:30 82 16 148/70 (96) 98 12/14/16 09:25 82 18 145/66 (92) 98 12/14/16 09:25 82 12/14/16 09:20 84 12/14/16 09:20 84 18 142/71 (94) 98 12/14/16 09:15 84 18 157/71 (99) 98 12/14/16 09:15 84 12/14/16 09:10 82 12/14/16 09:10 82 19 146/71 (96) 98 12/14/16 09:06 83 18 158/74 (102) 98 12/14/16 09:06 83 12/14/16 09:05 90 19 152/91 (111) 97 12/14/16 09:05 90 12/14/16 09:01 94 19 155/103 (120) 98 12/14/16 09:01 94 12/14/16 08:55 77 12/14/16 08:55 77 18 129/62 (84) 99 12/14/16 08:50 79 12/14/16 08:50 79 18 141/65 (90) 99 12/14/16 08:45 75 18 133/68 (89) 98 12/14/16 08:45 75 12/14/16 08:40 79 12/14/16 08:40 79 18 154/74 (100) 98 12/14/16 08:35 79 18 142/70 (94) 98 12/14/16 08:35 79 12/14/16 08:30 84 12/14/16 08:30 84 19 158/78 (104) 98 12/14/16 08:25 85 12/14/16 08:25 85 19 146/76 (99) 99 12/14/16 08:20 78 12/14/16 08:20 78 18 157/72 (100) 98 12/14/16 08:15 78 16 149/70 (96) 99 12/14/16 08:15 78 12/14/16 08:10 76 12/14/16 08:10 76 18 135/68 (90) 98 12/14/16 08:05 77 12/14/16 08:05 77 18 132/69 (90) 98 12/14/16 08:00 82 19 156/73 (100) 98 12/14/16 08:00 35 12/14/16 08:00 82 12/14/16 07:32 99 35 12/14/16 06:00 91 12/14/16 04:02 98 35 12/14/16 04:00 80 12/14/16 04:00 35 12/14/16 04:00 98.4 80 18 137/68 (91) 98 12/14/16 02:00 65 12/14/16 00:00 98.1 89 19 142/72 (95) 98 12/14/16 00:00 89 12/14/16 00:00 35 12/13/16 23:38 100 35 12/13/16 22:00 80 12/13/16 20:00 83 12/13/16 20:00 98.3 83 19 138/63 (88) 100 12/13/16 20:00 35 12/13/16 19:49 100 35 12/13/16 18:00 81 12/13/16 17:21 100 35 Intake & Output 12/14/16 12/14/16 07:00 19:00 Intake Total 644 ml Output Total 280 ml Balance 364 ml Tube Feeding 524 ml Other 120 ml Output Urine Total 250 ml Drainage Total 30 ml # Bowel Movements 1 Physical Exam CONSTITUTIONAL/GENERAL: This is a critically ill patient, intubated and mechanically ventilated. TUBES/LINES/DRAINS: ETT, OGT, CVL LIJ, RIJ vas cath, palacios catheter SKIN: No jaundice, rashes, or lesions. Ecchymoses on upper extremities. Skin temperature appropriate. Large wound on LUE, covered with bandage. Not diaphoretic. CARDIOVASCULAR: Regular rate and rhythm without murmurs, gallops, or rubs. Peripheral pulses symmetric. RESPIRATORY/CHEST: Symmetric, mechanically ventilated. Clear to auscultation. Breath sounds equal bilaterally. No wheezes, rales, or rhonchi. GASTROINTESTINAL: Abdomen soft, nontender, nondistended. Hypoactive bowel sounds present. GENITOURINARY: Without palpable bladder distension. Palacios catheter in place. MUSCULOSKELETAL: Extremities without clubbing, cyanosis. 2+ pitting edema BUE. No mottling or clubbing. NEUROLOGICAL: Opens eyes spontaneously and to verbal stimuli. Blinks to threat, does not track. Does not follow commands. PSYCHIATRIC: Unable to assess secondary to clinical condition. Diagnostic Tests Laboratory Laboratory Tests Test 12/11/16 18:20 12/12/16 03:35 12/12/16 11:55 12/13/16 00:00 Stool C. difficile Toxin (PCR) NEGATIVE (NEGATIVE) Stl C. difficile Toxin Epiderm 027 PRESUMPTIVE NEGATIVE White Blood Count 28.6 TH/MM3 (4.0-11.0) Red Blood Count 2.36 MIL/MM3 (4.00-5.30) Hemoglobin 7.2 GM/DL (11.6-15.3) 7.1 GM/DL (11.6-15.3) 8.3 GM/DL (11.6-15.3) Hematocrit 21.5 % (35.0-46.0) 21.4 % (35.0-46.0) 24.8 % (35.0-46.0) Mean Corpuscular Volume 90.9 FL (80.0-100.0) Mean Corpuscular Hemoglobin 30.5 PG (27.0-34.0) Mean Corpuscular Hemoglobin Concent 33.6 % (32.0-36.0) Red Cell Distribution Width 15.6 % (11.6-17.2) Platelet Count 44 TH/MM3 (150-450) Mean Platelet Volume 10.7 FL (7.0-11.0) Neutrophils (%) (Auto) 91.3 % (16.0-70.0) Lymphocytes (%) (Auto) 3.9 % (9.0-44.0) Monocytes (%) (Auto) 4.6 % (0.0-8.0) Eosinophils (%) (Auto) 0.0 % (0.0-4.0) Basophils (%) (Auto) 0.2 % (0.0-2.0) Neutrophils # (Auto) 26.2 TH/MM3 (1.8-7.7) Lymphocytes # (Auto) 1.1 TH/MM3 (1.0-4.8) Monocytes # (Auto) 1.3 TH/MM3 (0-0.9) Eosinophils # (Auto) 0.0 TH/MM3 (0-0.4) Basophils # (Auto) 0.0 TH/MM3 (0-0.2) CBC Comment AUTO DIFF Differential Total Cells Counted 100 Neutrophils % (Manual) 88 % (16-70) Band Neutrophils % 3 % (0-6) Lymphocytes % 3 % (9-44) Monocytes % 6 % (0-8) Neutrophils # (Manual) 26.0 TH/MM3 (1.8-7.7) Nucleated Red Blood Cells 2 /100 WBC (0-0) Differential Comment FINAL DIFF MANUAL Platelet Estimate LOW (NORMAL) Platelet Morphology Comment ENLARGED (NORMAL) Basophilic Stippling FAINT (NORMAL) Keratocytes OCC (NORMAL) Blood Urea Nitrogen 77 MG/DL (7-18) Creatinine 3.91 MG/DL (0.50-1.00) Random Glucose 214 MG/DL (74-106) Total Protein 5.8 GM/DL (6.4-8.2) Albumin 2.9 GM/DL (3.4-5.0) Calcium Level 8.1 MG/DL (8.5-10.1) Alkaline Phosphatase 274 U/L (45-117) Aspartate Amino Transf (AST/SGOT) 41 U/L (15-37) Alanine Aminotransferase (ALT/SGPT) 50 U/L (10-53) Total Bilirubin 3.6 MG/DL (0.2-1.0) Sodium Level 139 MEQ/L (136-145) Potassium Level 3.6 MEQ/L (3.5-5.1) Chloride Level 99 MEQ/L (98-107) Carbon Dioxide Level 26.2 MEQ/L (21.0-32.0) Anion Gap 14 MEQ/L (5-15) Estimat Glomerular Filtration Rate 11 ML/MIN (>89) Test 12/13/16 05:15 12/14/16 05:30 White Blood Count 25.5 TH/MM3 (4.0-11.0) 17.0 TH/MM3 (4.0-11.0) Red Blood Count 2.61 MIL/MM3 (4.00-5.30) 2.76 MIL/MM3 (4.00-5.30) Hemoglobin 8.0 GM/DL (11.6-15.3) 8.4 GM/DL (11.6-15.3) Hematocrit 23.2 % (35.0-46.0) 25.0 % (35.0-46.0) Mean Corpuscular Volume 88.9 FL (80.0-100.0) 90.7 FL (80.0-100.0) Mean Corpuscular Hemoglobin 30.7 PG (27.0-34.0) 30.3 PG (27.0-34.0) Mean Corpuscular Hemoglobin Concent 34.5 % (32.0-36.0) 33.4 % (32.0-36.0) Red Cell Distribution Width 16.0 % (11.6-17.2) 15.6 % (11.6-17.2) Platelet Count 42 TH/MM3 (150-450) 46 TH/MM3 (150-450) Mean Platelet Volume 10.3 FL (7.0-11.0) 11.2 FL (7.0-11.0) Neutrophils (%) (Auto) 94.3 % (16.0-70.0) Lymphocytes (%) (Auto) 1.8 % (9.0-44.0) Monocytes (%) (Auto) 3.8 % (0.0-8.0) Eosinophils (%) (Auto) 0.0 % (0.0-4.0) Basophils (%) (Auto) 0.1 % (0.0-2.0) Neutrophils # (Auto) 24.0 TH/MM3 (1.8-7.7) Lymphocytes # (Auto) 0.5 TH/MM3 (1.0-4.8) Monocytes # (Auto) 1.0 TH/MM3 (0-0.9) Eosinophils # (Auto) 0.0 TH/MM3 (0-0.4) Basophils # (Auto) 0.0 TH/MM3 (0-0.2) CBC Comment AUTO DIFF AUTO DIFF Differential Total Cells Counted 100 100 Neutrophils % (Manual) 86 % (16-70) 84 % (16-70) Band Neutrophils % 2 % (0-6) 7 % (0-6) Lymphocytes % 6 % (9-44) 4 % (9-44) Monocytes % 5 % (0-8) 5 % (0-8) Neutrophils # (Manual) 22.7 TH/MM3 (1.8-7.7) 15.5 TH/MM3 (1.8-7.7) Metamyelocytes 1 % (0-1) Nucleated Red Blood Cells 1 /100 WBC (0-0) 2 /100 WBC (0-0) Differential Comment FINAL DIFF MANUAL FINAL DIFF MANUAL Platelet Estimate LOW (NORMAL) LOW (NORMAL) Platelet Morphology Comment NORMAL (NORMAL) NORMAL (NORMAL) Blood Urea Nitrogen 96 MG/DL (7-18) 76 MG/DL (7-18) Creatinine 4.50 MG/DL (0.50-1.00) 3.83 MG/DL (0.50-1.00) Random Glucose 194 MG/DL (74-106) 232 MG/DL (74-106) Total Protein 5.4 GM/DL (6.4-8.2) 5.2 GM/DL (6.4-8.2) Albumin 2.4 GM/DL (3.4-5.0) 2.2 GM/DL (3.4-5.0) Calcium Level 8.3 MG/DL (8.5-10.1) 8.3 MG/DL (8.5-10.1) Alkaline Phosphatase 269 U/L (45-117) 281 U/L (45-117) Aspartate Amino Transf (AST/SGOT) 38 U/L (15-37) 46 U/L (15-37) Alanine Aminotransferase (ALT/SGPT) 48 U/L (10-53) 51 U/L (10-53) Total Bilirubin 3.0 MG/DL (0.2-1.0) 2.4 MG/DL (0.2-1.0) Sodium Level 139 MEQ/L (136-145) 139 MEQ/L (136-145) Potassium Level 3.3 MEQ/L (3.5-5.1) 3.2 MEQ/L (3.5-5.1) Chloride Level 99 MEQ/L (98-107) 100 MEQ/L (98-107) Carbon Dioxide Level 23.3 MEQ/L (21.0-32.0) 25.0 MEQ/L (21.0-32.0) Anion Gap 17 MEQ/L (5-15) 14 MEQ/L (5-15) Estimat Glomerular Filtration Rate 10 ML/MIN (>89) 12 ML/MIN (>89) Keratocytes OCC (NORMAL) Result Diagram: 12/14/16 0530 12/14/16 0530 Microbiology Microbiology Date/Time Source Procedure Growth Status 12/12/16 17:20 Sputum Endotracheal Gram Stain - Final Resulted 12/12/16 17:20 Sputum Culture - Preliminary Gram Negative Primitivo Resulted Imaging Last 72 hours Impressions Cholangiogram 12/14/16 0000 Signed Impressions: Service Date/Time: Wednesday, December 14, 2016 14:03 - CONCLUSION: 1. Cholecystostomy tube in good position. Continued occlusion of the cystic duct. The gallbladder lumen was irrigated and an accordion device placed on the cholecystostomy tube. Nain Sharma Jr., MD Catheter Placement X-Ray 12/13/16 0000 Signed Impressions: Service Date/Time: November 14:14 - CONCLUSION: Uncomplicated line placement as above. Nain Sharma Jr., MD Assessment and Plan Disease Oriented Problem List: (1) Sepsis (2) Metabolic acidosis (3) Acute cholecystitis (4) Respiratory failure Symptom Scale: (1) Dyspnea (2) Debility (3) Pain Pertinent Non-Medical Issues Psychosocial:Patient is originally from [place], [place], she has been to her for 56 years and has two children. 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 She retired in her early 60s when she began spending half of the year between [place] and [place]. Spiritual: Legal: None known. Ethical issues impacting care:None known. Important Contacts Marco Antonio Flores () [phone] . Prognosis Patient has experienced a physical and functional decline over the past two years. She has suffered from chronic back pain due to scoliosis and has recently drank daily heavily to alleviate the pain. The patient was admitted for sepsis followed by respiratory distress requiring intubation, she has continued to decline and has now progressed into multiorgan failure. She is at an increased risk for complications/setbacks due to her advanced age, multiple comorbidities, and current clinical status. . Code Status: Alternative Code Plan * Legal decision maker: Patient does not have the capacity to make her own health care decisions. It is unclear at this time if she will regain the capacity to make her own health care decisions. Documented HCS is patient's Marco Antonio Flores [phone], alternate HCS are Alvin Flores or Pippa Flores. * CODE STATUS:Alternative code, intubation only. * GOALS: Aggressive short of CPR. Face to face meeting with patient's , updated on clinica status, discussed overall prognosis and likely trajectories in the comings days to weeks. Discussed code status in multiple scenarios but most importantly in the setting of reintubation if the patient is able to be safely medically extubated in the coming days. The patient's stated he is not yet ready to make that decision, he would like more input regarding longterm prognosis from other consulting physicians and potentially a second opinion from another facility in order to make an informed decision. . * SYMPTOM MANAGEMENT: * --pain: Patient at ongoing risk for pain secondary to intubation, mechanical ventilation, and bedbound status. No recommendations at this time, further recommendations pending hospital course. * --dyspnea: Patient is intubated and mechanically ventilated, duonebs scheduled q 6hr and q 2hr PRN ordered. No recommendations at this time. * --debility: Secondary to current clinical status, mechanical ventilation, bedbound status. PT/OT following and working with the patient. No recommendations at this time. * Palliative care will continue to follow during hospital course as condition evolves, to assist patient/family/decision-maker with understanding of medical conditions, weighing benefit/burdens of treatment options, for clarification of goals of treatment. Additionally will assist with symptoms of palliative concern. Attestation To help prompt me to consider important information that might be impacting today's encounter and assessment, information from prior notes written by myself or my colleagues may have been "brought forward" into today's note. My signature on this note, however, is an attestation that I personally performed the exam, history, and/or decision-making noted today, and, unless otherwise indicated, the interactions with patient, family, and staff as well as the review of records all occurred today. I also attest that the listed assessment and stated plan reflect my best clinical judgment today based on the combination of historical information, prior notes, and today's exam/ interactions. When time spent is documented, it refers only to time spent today by the signer, or if indicated, combined time spent today by collaborating physician/nurse practitioner. Kallie Miranda Dec 14, 2016 16:33
--- NOTE | 2016-12-14 16:46 | HHI.IDPN ---
Subjective Subjective Remarks OK off pressors remains on vent, + secretions growing GNB in sputum afebrile UOP improving WBC down Antibiotics zosyn' levaquine Allergies: Coded Allergies: No Known Allergies (Unverified , 12/02/16) Objective . Vital Signs Date Time Temp Pulse Resp B/P (MAP) Pulse Ox O2 Delivery O2 Flow Rate FiO2 12/14/16 13:40 100 100 12/14/16 13:35 78 19 176/75 (108) 100 12/14/16 13:35 78 12/14/16 13:30 74 12/14/16 13:30 74 19 151/74 (99) 99 12/14/16 13:26 74 18 181/79 (113) 98 12/14/16 13:26 74 12/14/16 13:20 74 12/14/16 13:20 74 19 141/80 (100) 100 12/14/16 13:15 74 18 147/71 (96) 100 12/14/16 13:15 74 12/14/16 13:15 100 35 12/14/16 13:10 76 12/14/16 13:10 76 19 176/77 (110) 100 12/14/16 13:05 77 19 153/78 (103) 100 12/14/16 13:05 77 12/14/16 13:00 74 12/14/16 13:00 74 18 167/74 (105) 100 12/14/16 12:55 76 12/14/16 12:55 76 18 155/74 (101) 99 12/14/16 12:50 73 18 177/77 (110) 99 12/14/16 12:50 73 12/14/16 12:45 79 12/14/16 12:45 79 18 154/76 (102) 99 12/14/16 12:40 68 18 112/64 (80) 100 12/14/16 12:40 68 12/14/16 12:35 68 12/14/16 12:35 68 18 114/64 (81) 100 12/14/16 12:30 67 18 121/58 (79) 100 12/14/16 12:30 67 12/14/16 12:25 69 18 121/63 (82) 100 12/14/16 12:25 69 12/14/16 12:20 71 12/14/16 12:20 71 18 127/64 (85) 100 12/14/16 12:15 72 12/14/16 12:15 72 18 145/72 (96) 99 12/14/16 12:10 74 12/14/16 12:10 74 19 160/75 (103) 99 12/14/16 12:05 76 18 135/74 (94) 99 12/14/16 12:05 76 12/14/16 12:00 35 12/14/16 12:00 76 12/14/16 12:00 76 18 163/77 (105) 99 12/14/16 11:35 78 12/14/16 11:30 82 12/14/16 11:25 72 12/14/16 11:20 72 12/14/16 11:15 73 12/14/16 11:10 73 12/14/16 11:05 74 12/14/16 11:00 75 12/14/16 10:55 79 12/14/16 10:50 81 12/14/16 10:45 78 12/14/16 10:40 81 12/14/16 10:35 82 12/14/16 10:30 82 12/14/16 10:25 84 12/14/16 10:20 86 12/14/16 10:15 83 12/14/16 10:10 86 12/14/16 10:05 84 12/14/16 10:00 110 12/14/16 09:30 82 12/14/16 09:30 82 16 148/70 (96) 98 12/14/16 09:25 82 18 145/66 (92) 98 12/14/16 09:25 82 12/14/16 09:20 84 12/14/16 09:20 84 18 142/71 (94) 98 12/14/16 09:15 84 18 157/71 (99) 98 12/14/16 09:15 84 12/14/16 09:10 82 12/14/16 09:10 82 19 146/71 (96) 98 12/14/16 09:06 83 18 158/74 (102) 98 12/14/16 09:06 83 12/14/16 09:05 90 19 152/91 (111) 97 12/14/16 09:05 90 12/14/16 09:01 94 19 155/103 (120) 98 12/14/16 09:01 94 12/14/16 08:55 77 12/14/16 08:55 77 18 129/62 (84) 99 12/14/16 08:50 79 12/14/16 08:50 79 18 141/65 (90) 99 12/14/16 08:45 75 18 133/68 (89) 98 12/14/16 08:45 75 12/14/16 08:40 79 12/14/16 08:40 79 18 154/74 (100) 98 12/14/16 08:35 79 18 142/70 (94) 98 12/14/16 08:35 79 12/14/16 08:30 84 12/14/16 08:30 84 19 158/78 (104) 98 12/14/16 08:25 85 12/14/16 08:25 85 19 146/76 (99) 99 12/14/16 08:20 78 12/14/16 08:20 78 18 157/72 (100) 98 12/14/16 08:15 78 16 149/70 (96) 99 12/14/16 08:15 78 12/14/16 08:10 76 12/14/16 08:10 76 18 135/68 (90) 98 12/14/16 08:05 77 12/14/16 08:05 77 18 132/69 (90) 98 12/14/16 08:00 82 19 156/73 (100) 98 12/14/16 08:00 35 12/14/16 08:00 82 12/14/16 07:32 99 35 12/14/16 06:00 91 12/14/16 04:02 98 35 12/14/16 04:00 80 12/14/16 04:00 35 12/14/16 04:00 98.4 80 18 137/68 (91) 98 12/14/16 02:00 65 12/14/16 00:00 98.1 89 19 142/72 (95) 98 12/14/16 00:00 89 12/14/16 00:00 35 12/13/16 23:38 100 35 12/13/16 22:00 80 12/13/16 20:00 83 12/13/16 20:00 98.3 83 19 138/63 (88) 100 12/13/16 20:00 35 12/13/16 19:49 100 35 12/13/16 18:00 81 12/13/16 17:21 100 35 . Laboratory Tests Test 12/13/16 00:00 12/13/16 05:15 12/14/16 05:30 Hemoglobin 8.3 GM/DL 8.0 GM/DL 8.4 GM/DL Hematocrit 24.8 % 23.2 % 25.0 % White Blood Count 25.5 TH/MM3 17.0 TH/MM3 Red Blood Count 2.61 MIL/MM3 2.76 MIL/MM3 Mean Corpuscular Volume 88.9 FL 90.7 FL Mean Corpuscular Hemoglobin 30.7 PG 30.3 PG Mean Corpuscular Hemoglobin Concent 34.5 % 33.4 % Red Cell Distribution Width 16.0 % 15.6 % Platelet Count 42 TH/MM3 46 TH/MM3 Mean Platelet Volume 10.3 FL 11.2 FL Neutrophils (%) (Auto) 94.3 % Lymphocytes (%) (Auto) 1.8 % Monocytes (%) (Auto) 3.8 % Eosinophils (%) (Auto) 0.0 % Basophils (%) (Auto) 0.1 % Neutrophils # (Auto) 24.0 TH/MM3 Lymphocytes # (Auto) 0.5 TH/MM3 Monocytes # (Auto) 1.0 TH/MM3 Eosinophils # (Auto) 0.0 TH/MM3 Basophils # (Auto) 0.0 TH/MM3 CBC Comment AUTO DIFF AUTO DIFF Differential Total Cells Counted 100 100 Neutrophils % (Manual) 86 % 84 % Band Neutrophils % 2 % 7 % Lymphocytes % 6 % 4 % Monocytes % 5 % 5 % Neutrophils # (Manual) 22.7 TH/MM3 15.5 TH/MM3 Metamyelocytes 1 % Nucleated Red Blood Cells 1 /100 WBC 2 /100 WBC Differential Comment FINAL DIFF MANUAL FINAL DIFF MANUAL Platelet Estimate LOW LOW Platelet Morphology Comment NORMAL NORMAL Keratocytes OCC Laboratory Tests Test 12/13/16 05:15 12/14/16 05:30 Blood Urea Nitrogen 96 MG/DL 76 MG/DL Creatinine 4.50 MG/DL 3.83 MG/DL Random Glucose 194 MG/DL 232 MG/DL Total Protein 5.4 GM/DL 5.2 GM/DL Albumin 2.4 GM/DL 2.2 GM/DL Calcium Level 8.3 MG/DL 8.3 MG/DL Alkaline Phosphatase 269 U/L 281 U/L Aspartate Amino Transf (AST/SGOT) 38 U/L 46 U/L Alanine Aminotransferase (ALT/SGPT) 48 U/L 51 U/L Total Bilirubin 3.0 MG/DL 2.4 MG/DL Sodium Level 139 MEQ/L 139 MEQ/L Potassium Level 3.3 MEQ/L 3.2 MEQ/L Chloride Level 99 MEQ/L 100 MEQ/L Carbon Dioxide Level 23.3 MEQ/L 25.0 MEQ/L Anion Gap 17 MEQ/L 14 MEQ/L Estimat Glomerular Filtration Rate 10 ML/MIN 12 ML/MIN Microbiology Date/Time Source Procedure Growth Status 12/12/16 17:20 Sputum Endotracheal Gram Stain - Final Resulted 12/12/16 17:20 Sputum Culture - Preliminary Gram Negative Primitivo Resulted Imaging Last Impressions Cholangiogram 12/14/16 0000 Signed Impressions: Service Date/Time: Wednesday, December 14, 2016 14:03 - CONCLUSION: 1. Cholecystostomy tube in good position. Continued occlusion of the cystic duct. The gallbladder lumen was irrigated and an accordion device placed on the cholecystostomy tube. Nain Sharma Jr., MD Catheter Placement X-Ray 12/13/16 0000 Signed Impressions: Service Date/Time: November 14:14 - CONCLUSION: Uncomplicated line placement as above. Nain Sharma Jr., MD Head CT 12/11/16 0000 Signed Impressions: Service Date/Time: Sunday, December 11, 2016 17:09 - CONCLUSION: 1. Minimal chronic sinusitis in the sphenoid sinuses bilaterally. 2. Bilateral acute mastoiditis. 3. Otherwise negative. Anatomic detail is somewhat limited due to motion artifact, however. Jamel Johns MD Chest CT 12/11/16 0000 Signed Impressions: Service Date/Time: Sunday, December 11, 2016 17:15 - CONCLUSION: Small bibasilar consolidation and/or compressive collapse and bilateral pleural effusions. Kristen Deleon MD Abdomen/Pelvis CT 12/11/16 Signed Impressions: Service Date/Time: Sunday, December 11, 2016 17:15 - CONCLUSION: 1. Cholecystostomy tube in place with decrease in the amount of hyperdensity within the lumen. 2. Persistent bilateral pleural effusions, stable. Persistent free fluid in the pelvis, slightly decreased. 3. Increase in the amount of induration of the lateral abdominal wall and pelvic subcutaneous tissues an increase swelling of the lateral musculature Nain Mejia MD Chest X-Ray 12/09/16 0600 Signed Impressions: Service Date/Time: Friday, December 09, 2016 04:06 - CONCLUSION: 1. Interval placement of nasogastric tube. 2. Bibasal opacities remain. Josef Luther MD Abdomen X-Ray 12/09/16 0000 Signed Impressions: Service Date/Time: Friday, December 09, 2016 12:19 - CONCLUSION: OG tube tip in the distal stomach. Fermin Wills MD Abdomen CT 12/08/16 0000 Signed Impressions: Service Date/Time: Thursday, December 08, 2016 17:52 - CONCLUSION: 1. Cholecystostomy tube in good position. Nain Sharma Jr., MD Percutaneous Cholangiogram 12/03/16 0000 Signed Impressions: Service Date/Time: Saturday, December 03, 2016 14:31 - CONCLUSION: Uncomplicated percutaneous cholecystostomy as above. Nain Sharma Jr., MD Liver Ultrasound 12/02/16 0000 Signed Impressions: Service Date/Time: Friday, December 02, 2016 19:12 - CONCLUSION: 1. Cholelithiasis with wall thickening and trace pericholecystic fluid. 2. No evidence of biliary duct distention. 3. No other significant abnormality. Jak Hughes MD Physical Exam CONSTITUTIONAL/GENERAL: This is an adequately nourished patient, in no apparent distress. TUBES/LINES/DRAINS: biliary drain in place with small amount of brown bile SKIN: less jaundice, rashes, or lesions. . Skin temperature appropriate. Not diaphoretic. HEAD: Atraumatic. Normocephalic. EYES: Pupils equal and round and reactive. very mild scleral icterus. No injection or drainage. Fundi not examined. ENT: Hearing not assessed. Nose without bleeding or purulent drainage. Oraly intubated NECK: Trachea midline. Supple, nontender. CARDIOVASCULAR: Regular rate and rhythm without murmurs, gallops, or rubs. No JVD. Peripheral pulses symmetric. well perfused RESPIRATORY/CHEST: Symmetric, unlabored respirations. Clear to auscultation. Breath sounds equal bilaterally. No wheezes, rales, or rhonchi. GASTROINTESTINAL: Abdomen soft, no reaction to papation + distended. No hepato- splenomegaly, or palpable masses. GENITOURINARY: Without palpable bladder distension. Peterson catheter in place with small amount of cloudy urine MUSCULOSKELETAL: Extremities without clubbing, cyanosis, diffuse 4+ edema. No mottling or clubbing. NEUROLOGICAL: Sedated PSYCHIATRIC: unabe to assess Assessment & Plan Remarks Billiary sepsis ? uncontrolled as of today WBC trending up, pts and fibrinogen down Multi-organ failure: acute VDRF ARF, on HD Hypotension, resolved, currently off pressors Gram negative sepsis - biliary Acute calculous cholecystitis sp cholecystostomy tube placement - growing enterococccus chirinos S and >=3 MIXED ENTERIC GRAM NEGATIVE RODS in the bile clx - not much drainage ? E.coli UTI vs colonisatrion ? PNA vs ARDS - growing E.coli in sputum R to zosyn - growing steno mal - growing GNB again Now growing Steno malt, also S to levaquine Critical, seems more stable today Leukocytosis, leukemoid reaction - WBC trending down Fibrinogen trending up today, plts dwn likely DIC Critically ill, appears to be more stable today Mental status change : improved cont zosyn cont levaqine for zosyn-R E.coli and steno malt in the sputum Dw RN Jina Ramos MD Dec 14, 2016 16:46
--- NOTE | 2016-12-14 16:53 | HHI.GIFU ---
Subjective Remarks Resting in bed. Lethargic, follows commands and shook her head "no" when I initially asked her to squeeze my hand- but she did squeeze. Went to IR today for cholangiogram. Tolerating TF Objective Vitals I&O Vital Signs Date Time Temp Pulse Resp B/P (MAP) Pulse Ox O2 Delivery O2 Flow Rate FiO2 12/14/16 13:40 100 100 12/14/16 13:35 78 19 176/75 (108) 100 12/14/16 13:35 78 12/14/16 13:30 74 12/14/16 13:30 74 19 151/74 (99) 99 12/14/16 13:26 74 18 181/79 (113) 98 12/14/16 13:26 74 12/14/16 13:20 74 12/14/16 13:20 74 19 141/80 (100) 100 12/14/16 13:15 74 18 147/71 (96) 100 12/14/16 13:15 74 12/14/16 13:15 100 35 12/14/16 13:10 76 12/14/16 13:10 76 19 176/77 (110) 100 12/14/16 13:05 77 19 153/78 (103) 100 12/14/16 13:05 77 12/14/16 13:00 74 12/14/16 13:00 74 18 167/74 (105) 100 12/14/16 12:55 76 12/14/16 12:55 76 18 155/74 (101) 99 12/14/16 12:50 73 18 177/77 (110) 99 12/14/16 12:50 73 12/14/16 12:45 79 12/14/16 12:45 79 18 154/76 (102) 99 12/14/16 12:40 68 18 112/64 (80) 100 12/14/16 12:40 68 12/14/16 12:35 68 12/14/16 12:35 68 18 114/64 (81) 100 12/14/16 12:30 67 18 121/58 (79) 100 12/14/16 12:30 67 12/14/16 12:25 69 18 121/63 (82) 100 12/14/16 12:25 69 12/14/16 12:20 71 12/14/16 12:20 71 18 127/64 (85) 100 12/14/16 12:15 72 12/14/16 12:15 72 18 145/72 (96) 99 12/14/16 12:10 74 12/14/16 12:10 74 19 160/75 (103) 99 12/14/16 12:05 76 18 135/74 (94) 99 12/14/16 12:05 76 12/14/16 12:00 35 12/14/16 12:00 76 12/14/16 12:00 76 18 163/77 (105) 99 12/14/16 11:35 78 12/14/16 11:30 82 12/14/16 11:25 72 12/14/16 11:20 72 12/14/16 11:15 73 12/14/16 11:10 73 12/14/16 11:05 74 12/14/16 11:00 75 12/14/16 10:55 79 12/14/16 10:50 81 12/14/16 10:45 78 12/14/16 10:40 81 12/14/16 10:35 82 12/14/16 10:30 82 12/14/16 10:25 84 12/14/16 10:20 86 12/14/16 10:15 83 12/14/16 10:10 86 12/14/16 10:05 84 12/14/16 10:00 110 12/14/16 09:30 82 12/14/16 09:30 82 16 148/70 (96) 98 12/14/16 09:25 82 18 145/66 (92) 98 12/14/16 09:25 82 12/14/16 09:20 84 12/14/16 09:20 84 18 142/71 (94) 98 12/14/16 09:15 84 18 157/71 (99) 98 12/14/16 09:15 84 12/14/16 09:10 82 12/14/16 09:10 82 19 146/71 (96) 98 12/14/16 09:06 83 18 158/74 (102) 98 12/14/16 09:06 83 12/14/16 09:05 90 19 152/91 (111) 97 12/14/16 09:05 90 12/14/16 09:01 94 19 155/103 (120) 98 12/14/16 09:01 94 12/14/16 08:55 77 12/14/16 08:55 77 18 129/62 (84) 99 12/14/16 08:50 79 12/14/16 08:50 79 18 141/65 (90) 99 12/14/16 08:45 75 18 133/68 (89) 98 12/14/16 08:45 75 12/14/16 08:40 79 12/14/16 08:40 79 18 154/74 (100) 98 12/14/16 08:35 79 18 142/70 (94) 98 12/14/16 08:35 79 12/14/16 08:30 84 12/14/16 08:30 84 19 158/78 (104) 98 12/14/16 08:25 85 12/14/16 08:25 85 19 146/76 (99) 99 12/14/16 08:20 78 12/14/16 08:20 78 18 157/72 (100) 98 12/14/16 08:15 78 16 149/70 (96) 99 12/14/16 08:15 78 12/14/16 08:10 76 12/14/16 08:10 76 18 135/68 (90) 98 12/14/16 08:05 77 12/14/16 08:05 77 18 132/69 (90) 98 12/14/16 08:00 82 19 156/73 (100) 98 12/14/16 08:00 35 12/14/16 08:00 82 12/14/16 07:32 99 35 12/14/16 06:00 91 12/14/16 04:02 98 35 12/14/16 04:00 80 12/14/16 04:00 35 12/14/16 04:00 98.4 80 18 137/68 (91) 98 12/14/16 02:00 65 12/14/16 00:00 98.1 89 19 142/72 (95) 98 12/14/16 00:00 89 12/14/16 00:00 35 12/13/16 23:38 100 35 12/13/16 22:00 80 12/13/16 20:00 83 12/13/16 20:00 98.3 83 19 138/63 (88) 100 12/13/16 20:00 35 12/13/16 19:49 100 35 12/13/16 18:00 81 12/13/16 17:21 100 35 I/O 12/13/16 12/13/16 12/13/16 12/14/16 12/14/16 12/14/16 07:00 15:00 23:00 07:00 15:00 23:00 Intake Total 1079 ml 50 ml 208 ml 644 ml Output Total 350 ml 2000 ml 250 ml 280 ml Balance 729 ml -1950 ml -42 ml 364 ml Intake IV Total 350 ml 50 ml 50 ml Tube Feeding 364 ml 158 ml 524 ml Packed Cells 365 ml Other 120 ml Output Urine Total 350 ml 250 ml 250 ml Drainage Total 0 ml 0 ml 30 ml Hemodialysis 2000 ml # Bowel Movements 2 1 1 Laboratory Laboratory Tests Test 12/14/16 05:30 White Blood Count 17.0 Red Blood Count 2.76 Hemoglobin 8.4 Hematocrit 25.0 Mean Corpuscular Volume 90.7 Mean Corpuscular Hemoglobin 30.3 Mean Corpuscular Hemoglobin Concent 33.4 Red Cell Distribution Width 15.6 Platelet Count 46 Mean Platelet Volume 11.2 CBC Comment AUTO DIFF Differential Total Cells Counted 100 Neutrophils % (Manual) 84 Band Neutrophils % 7 Lymphocytes % 4 Monocytes % 5 Neutrophils # (Manual) 15.5 Nucleated Red Blood Cells 2 Differential Comment FINAL DIFF MANUAL Platelet Estimate LOW Platelet Morphology Comment NORMAL Keratocytes OCC Blood Urea Nitrogen 76 Creatinine 3.83 Random Glucose 232 Total Protein 5.2 Albumin 2.2 Calcium Level 8.3 Alkaline Phosphatase 281 Aspartate Amino Transf (AST/SGOT) 46 Alanine Aminotransferase (ALT/SGPT) 51 Total Bilirubin 2.4 Sodium Level 139 Potassium Level 3.2 Chloride Level 100 Carbon Dioxide Level 25.0 Anion Gap 14 Estimat Glomerular Filtration Rate 12 Date/Time Source Procedure Growth Status 12/09/16 15:13 Blood Peripheral Aerobic Blood Culture - Final NO GROWTH IN 5 DAYS Complete 12/09/16 15:13 Blood Peripheral Anaerobic Blood Culture - Final NO GROWTH IN 5 DAYS Complete 12/03/16 14:55 Fluid Bile Fluid Gram Stain - Final Complete 12/03/16 14:55 Body Fluid Culture - Final Enterococcus Faecalis Complete 12/12/16 17:20 Sputum Endotracheal Gram Stain - Final Resulted 12/12/16 17:20 Sputum Culture - Preliminary Gram Negative Primitivo Resulted 12/09/16 18:00 Urine Catheterized Urine Urine Culture - Final NO GROWTH IN 48 HOURS. Complete Imaging Last Impressions Cholangiogram 12/14/16 Signed Impressions: Service Date/Time: Wednesday, December 14, 2016 14:03 - CONCLUSION: 1. Cholecystostomy tube in good position. Continued occlusion of the cystic duct. The gallbladder lumen was irrigated and an accordion device placed on the cholecystostomy tube. Nain Sharma Jr., MD Catheter Placement X-Ray 12/13/16 0000 Signed Impressions: Service Date/Time: November 14:14 - CONCLUSION: Uncomplicated line placement as above. Nain Sharma Jr., MD Head CT 12/11/16 0000 Signed Impressions: Service Date/Time: Sunday, December 11, 2016 17:09 - CONCLUSION: 1. Minimal chronic sinusitis in the sphenoid sinuses bilaterally. 2. Bilateral acute mastoiditis. 3. Otherwise negative. Anatomic detail is somewhat limited due to motion artifact, however. Jamel Johns MD Chest CT 12/11/16 0000 Signed Impressions: Service Date/Time: Sunday, December 11, 2016 17:15 - CONCLUSION: Small bibasilar consolidation and/or compressive collapse and bilateral pleural effusions. Kristen Deleon MD Abdomen/Pelvis CT 12/11/16 0000 Signed Impressions: Service Date/Time: Sunday, December 11, 2016 17:15 - CONCLUSION: 1. Cholecystostomy tube in place with decrease in the amount of hyperdensity within the lumen. 2. Persistent bilateral pleural effusions, stable. Persistent free fluid in the pelvis, slightly decreased. 3. Increase in the amount of induration of the lateral abdominal wall and pelvic subcutaneous tissues an increase swelling of the lateral musculature Nain Mejia MD Chest X-Ray 12/09/16 0600 Signed Impressions: Service Date/Time: Friday, December 09, 2016 04:06 - CONCLUSION: 1. Interval placement of nasogastric tube. 2. Bibasal opacities remain. Josef Luther MD Abdomen X-Ray 12/09/16 0000 Signed Impressions: Service Date/Time: Friday, December 09, 2016 12:19 - CONCLUSION: OG tube tip in the distal stomach. Fermin Wills MD Abdomen CT 12/08/16 0000 Signed Impressions: Service Date/Time: Thursday, December 08, 2016 17:52 - CONCLUSION: 1. Cholecystostomy tube in good position. Nain Sharma Jr., MD Percutaneous Cholangiogram 12/03/16 0000 Signed Impressions: Service Date/Time: Saturday, December 03, 2016 14:31 - CONCLUSION: Uncomplicated percutaneous cholecystostomy as above. Nain Sharma Jr., MD Liver Ultrasound 12/02/16 0000 Signed Impressions: Service Date/Time: Friday, December 02, 2016 19:12 - CONCLUSION: 1. Cholelithiasis with wall thickening and trace pericholecystic fluid. 2. No evidence of biliary duct distention. 3. No other significant abnormality. Jak Hughes MD Physical Exam HEENT: Normocephalic; atraumatic; no jaundice. CHEST: Resp even/unlabored, OETT to vent. Diminished bases CARDIAC: RRR ABDOMEN: Soft, mildly distended, cholecystomy tube patent, drsg d/i, bowel sounds are hypoactive EXTREMITIES: Edema BUE, mild edema to ble SKIN: Drsg lue. 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 Lethargic, but following commands today Assessment and Plan Plan ASSESSMENT: - Cholecystitis. CT scan abdomen and pelvis without iv contrast (12/02/16)---> No evidence of acute abdominal or pelvic process. No masses are identified. Cholelithiasis. Left lower lobe atelectasis versus pneumonia, a large hiatal hernia is present, diverticulosis without evidence of diverticulitis. Liver US (12/02/16)---> Cholelithiasis with wall thickening and trace pericholecystic fluid, no evidence of biliary duct distention, no other significant abnormality. Bacteremia with multiple organisms. GS following, s/p cholecystomy tube 12/03. S/P Cholangiogram- tube in good position, continued occlusion of the cystic duct. The gallbladder lumen was irrigated and accordion device was placed. T. BIli 3.0, AST 38, ALT 48, Alk Phosph 269. Cholecystomy tube patent. Zosyn, Levaquin, Tolerating TF. - FEN/Malnutrition. Nurse was unable to place OGT (would not advance). Attempt at NGT/Dobbhoff was unsuccessful. S/P EGD with OGT placement (12/07/16)----> Hiatal hernia. Successful OG tube placement. Tolerating TF. Biology Specialist recommends Nepro GR 45cc/hr. - Thrombocytopenia, Coagulopathy. S/P 2 units of FFP. HIT negative - Elevated LFTs. No evidence of biliary duct obstruction. No evidence of pancreatitis or dilated ducts on imaging. Unclear if this is all cholecystis, or passed stone, or possible ETOH and cholecystitis. S/P Cholecystomy tube. Hepatitis profile negative, HERBER negative, AMA <20.0, ASMA neg, Iron saturation 2.7%, Ferritin 306, ALpha 1 antitrypsin 209, Ceruloplasmin 32, AFP. Slowly trending down. - Severe sepsis with multisystem failure. BCx from 12/02/16 grew enterobacter species, klebsiella pneumoniae, escherichia coli, and GNR in the anaerobic bottle. Bile cx Group D Enterococcus. Sputum Cx E. Coli. Rpt urine, sputum, blood culture pending. Zosyn, Levaquin. WBC 17.0 - Anemia. S/P 1 unit PRBC. HH 8.4/25.0. No active bleeding. - Abdominal pain, nausea, decreased appetite. Likely related to cholecystis. Currently sedated. - ARF with severe electrolyte abnormalities. S/P CVVHD, now transitioned to HD. Per nephrology - Resp. Failure/PNA. CXR LLL atelectasis vs. pna, resolving right basilar atelectasis. Cx E. Coli. Still lethargic, but is following commands today. - Chronic back pain r/t scoliosis. Uses medical marijuana via vaping and takes 4 shots of scotch per day to help with her pain control. Last had these 2 weeks ago. - CAD, Hx HTN, Hyperlipidemia per attending. PLAN: - Nepro 45cc/hr - Abx per ID recommendations - S/P Cholecystomy tube placement by IR (12/03), s/p cholangiogram (12/14), cystic duct occluded. Drain patent. - GI will sign off, please reconsult as needed - Pt seen and examined by Dr. Andre and myself and this note is written on his behalf Danica Shipley Dec 14, 2016 16:53
[2016-12-15] VITALS (22 sets, daily range): BP systolic 124–157; BP diastolic 59–81; PULSE 75–103; RESP 14–22; TEMP 97.1–99.5; O2SAT 96–100
[2016-12-15] MEDS: INSULIN NovoLIN REGULAR SUPPLEMENTAL SCALE SQ SCH ×4 (02:00→20:00)
[2016-12-15] MEDS: HYDROCORTISONE SOD SUCCINATE 100 MG VIAL IV PUSH SCH ×4 (02:31→20:10)
[2016-12-15 04:57] LABS: AUTOMATED NEUTROPHIL # 17.7 TH/MM3 (1.8-7.7); BASOPHIL # 0.1 TH/MM3 (0-0.2); BASOPHIL % 0.3 % (0.0-2.0); HEMATOCRIT 25.1 % (35.0-46.0); HEMOGLOBIN 8.4 GM/DL (11.6-15.3); LYMPH % 1.2 % (9.0-44.0); LYMPHOCYTE # 0.2 TH/MM3 (1.0-4.8); MEAN CELL VOLUME 90.7 FL (80.0-100.0); MEAN CORPUSCULAR HEMOGLOBIN 30.4 PG (27.0-34.0); MEAN CORPUSCULAR HGB CONC 33.5 % (32.0-36.0); MEAN PLATELET VOLUME 10.2 FL (7.0-11.0); MONOCYTE # 0.6 TH/MM3 (0-0.9); NEUT % 95.5 % (16.0-70.0); PLATELET COUNT 49 TH/MM3 (150-450); RED BLOOD COUNT 2.76 MIL/MM3 (4.00-5.30); RED CELL DISTRIBUTION WIDTH 16.1 % (11.6-17.2); WHITE BLOOD COUNT 18.5 TH/MM3 (4.0-11.0)
[2016-12-15] MEDS: PIPERACIL-TAZO 2.25 GM PREMIX 50 ML IV SCH ×4 (05:14→23:52)
[2016-12-15] MEDS: DILTIAZEM HCL 60 MG TAB PO SCH ×4 (05:14→23:52)
--- NOTE | 2016-12-15 05:24 | RADRPT ---
EXAM DATE/TIME: 12/15/2016 04:03 [facility] COMPARISON: CHEST SINGLE AP, December 09, 2016, 4:06. INDICATIONS : Shortness of breath, possible pulmonary disease. MEDICAL HISTORY : Cardiovascular disease. Hypertension Hypercholesterolemia. [place] SURGICAL HISTORY : Cholecystectomy. Fusion, cervical. ENCOUNTER: Subsequent ACUITY: 2 weeks PAIN SCORE: Non-responsive. LOCATION: Bilateral chest FINDINGS: Very mild bibasilar airspace opacities are present, both sides improved in the interim. Very small, b ilateral pleural effusions are suspected. No pneumothorax. Heart size stable, upper limits of normal. Endotracheal tube tip is about 4 cm above the real. Nasogastric tube courses into the stomach. Ther e is a right internal jugular central venous catheter now present, tip in the atriocaval junction reg ion. Severe S-shaped thoracolumbar scoliosis again noted. CONCLUSION: Slightly improved bibasilar consolidation. Fermin Rodriguez MD on December 15, 2016 at 5:21 Board Certified Radiologist. This report was verified electronically.
--- NOTE | 2016-12-15 05:24 | RADRPT ---
EXAM DATE/TIME: 12/15/2016 04:03 [facility] COMPARISON: CHEST SINGLE AP, December 09, 2016, 4:06. INDICATIONS : Shortness of breath, possible pulmonary disease. MEDICAL HISTORY : Cardiovascular disease. Hypertension Hypercholesterolemia. [place] SURGICAL HISTORY : Cholecystectomy. Fusion, cervical. ENCOUNTER: Subsequent ACUITY: 2 weeks PAIN SCORE: Non-responsive. LOCATION: Bilateral chest FINDINGS: Very mild bibasilar airspace opacities are present, both sides improved in the interim. Very small, b ilateral pleural effusions are suspected. No pneumothorax. Heart size stable, upper limits of normal. Endotracheal tube tip is about 4 cm above the real. Nasogastric tube courses into the stomach. Ther e is a right internal jugular central venous catheter now present, tip in the atriocaval junction reg ion. Severe S-shaped thoracolumbar scoliosis again noted. CONCLUSION: Slightly improved bibasilar consolidation. Fermin Rodriguez MD on December 15, 2016 at 5:21 Board Certified Radiologist. This report was verified electronically.
--- NOTE | 2016-12-15 05:24 | RADRPT ---
EXAM DATE/TIME: 12/15/2016 04:03 [place] COMPARISON: CHEST SINGLE AP, December 09, 2016, 4:06. INDICATIONS : Shortness of breath, possible pulmonary disease. MEDICAL HISTORY : Cardiovascular disease. Hypertension Hypercholesterolemia. DC SURGICAL HISTORY : Cholecystectomy. Fusion, cervical. ENCOUNTER: Subsequent ACUITY: 2 weeks PAIN SCORE: Non-responsive. LOCATION: Bilateral chest FINDINGS: Very mild bibasilar airspace opacities are present, both sides improved in the interim. Very small, b ilateral pleural effusions are suspected. No pneumothorax. Heart size stable, upper limits of normal. Endotracheal tube tip is about 4 cm above the real. Nasogastric tube courses into the stomach. Ther e is a right internal jugular central venous catheter now present, tip in the atriocaval junction reg ion. Severe S-shaped thoracolumbar scoliosis again noted. CONCLUSION: Slightly improved bibasilar consolidation. Fermin Rodriguez MD on December 15, 2016 at 5:21 Board Certified Radiologist. This report was verified electronically.
[2016-12-15 05:44] LABS: BICARBONATE 24.3 MEQ/L (21.0-32.0); CALCIUM 8.1 MG/DL (8.5-10.1); CREATININE 4.44 MG/DL (0.50-1.00)
[2016-12-15] MEDS: CHLORHEXIDINE 0.12% (ORAL KIT) 15 ML CUP MT SCH ×2 (07:55→20:18)
[2016-12-15] MEDS: SODIUM CHLORIDE 0.9% FLUSH 10 ML FLUSH IV FLUSH SCH ×3 (07:55→20:17)
[2016-12-15] MEDS: DOCUSATE SODIUM 50 MG/SENNA 8.6 MG TAB PO SCH ×2 (07:58→20:15)
[2016-12-15] MEDS: FAMOTIDINE 20 MG/2 ML VIAL IV PUSH SCH (07:58)
[2016-12-15] MEDS: GENTAMICIN SULFATE (DIALYSIS USE ONLY) 20 MG/2 ML VIAL OTHER PRN (09:56)
[2016-12-15] MEDS: EPOETIN ALFA 10,000 UNITS/ML VIAL IV PUSH PRN (09:56)
[2016-12-15] MEDS: SODIUM CHLOR 0.9% 1000 ML INJ 1,000 ML OTHER PRN (09:56)
[2016-12-15] MEDS: ALBUMIN 25% INJ 100 ML IV PRN (09:58)
--- NOTE | 2016-12-15 11:00 | PD.ONC.PN ---
Subjective Subjective Remarks Afebrile overnight. Patient intubated. Receiving HD No bleeding per nurse. Objective Data Date Time Temp Pulse Resp B/P (MAP) Pulse Ox O2 Delivery O2 Flow Rate FiO2 12/15/16 10:00 86 14 99 12/15/16 10:00 86 12/15/16 09:00 98 19 134/62 (86) 96 12/15/16 08:00 35 12/15/16 08:00 91 12/15/16 08:00 97.5 91 14 135/63 (87) 96 12/15/16 07:20 99 35 12/15/16 07:15 35 12/15/16 06:00 88 12/15/16 04:08 100 35 12/15/16 04:00 97.1 86 19 157/72 (100) 100 12/15/16 04:00 35 12/15/16 04:00 86 12/15/16 04:00 97.1 88 18 132/70 (90) 98 12/15/16 04:00 35 12/15/16 02:00 86 12/15/16 01:02 100 35 12/15/16 00:00 86 12/15/16 00:00 97.1 86 19 157/72 (100) 100 12/15/16 00:00 35 12/14/16 22:02 100 35 12/14/16 22:00 81 12/14/16 20:00 80 18 100 12/14/16 20:00 97.9 81 17 160/72 (101) 12/14/16 20:00 81 12/14/16 20:00 35 12/14/16 19:15 99 35 12/14/16 18:00 86 12/14/16 17:00 100 35 12/14/16 16:00 80 18 100 12/14/16 16:00 80 12/14/16 16:00 100 12/14/16 13:40 100 100 12/14/16 13:35 78 19 176/75 (108) 100 12/14/16 13:35 78 12/14/16 13:30 74 12/14/16 13:30 74 19 151/74 (99) 99 12/14/16 13:26 74 18 181/79 (113) 98 12/14/16 13:26 74 12/14/16 13:20 74 12/14/16 13:20 74 19 141/80 (100) 100 12/14/16 13:15 74 18 147/71 (96) 100 12/14/16 13:15 74 12/14/16 13:15 100 35 12/14/16 13:10 76 12/14/16 13:10 76 19 176/77 (110) 100 12/14/16 13:05 77 19 153/78 (103) 100 12/14/16 13:05 77 12/14/16 13:00 74 12/14/16 13:00 74 18 167/74 (105) 100 12/14/16 12:55 76 12/14/16 12:55 76 18 155/74 (101) 99 12/14/16 12:50 73 18 177/77 (110) 99 12/14/16 12:50 73 12/14/16 12:45 79 12/14/16 12:45 79 18 154/76 (102) 99 12/14/16 12:40 68 18 112/64 (80) 100 12/14/16 12:40 68 12/14/16 12:35 68 12/14/16 12:35 68 18 114/64 (81) 100 12/14/16 12:30 67 18 121/58 (79) 100 12/14/16 12:30 67 12/14/16 12:25 69 18 121/63 (82) 100 12/14/16 12:25 69 12/14/16 12:20 71 12/14/16 12:20 71 18 127/64 (85) 100 12/14/16 12:15 72 12/14/16 12:15 72 18 145/72 (96) 99 12/14/16 12:10 74 12/14/16 12:10 74 19 160/75 (103) 99 12/14/16 12:05 76 18 135/74 (94) 99 12/14/16 12:05 76 12/14/16 12:00 35 12/14/16 12:00 76 12/14/16 12:00 76 18 163/77 (105) 99 12/14/16 11:35 78 12/14/16 11:30 82 12/14/16 11:25 72 12/14/16 11:20 72 12/14/16 11:15 73 12/14/16 11:10 73 10/27/17 11:05 74 12/14/16 11:00 75 12/15/16 12/15/16 12/15/16 07:00 15:00 23:00 Intake Total 465 ml Output Total 380 ml Balance 85 ml Result Diagram: 12/15/16 0442 12/15/16 0442 Laboratory Results Laboratory Tests Test 12/15/16 04:42 White Blood Count 18.5 TH/MM3 Red Blood Count 2.76 MIL/MM3 Hemoglobin 8.4 GM/DL Hematocrit 25.1 % Mean Corpuscular Volume 90.7 FL Mean Corpuscular Hemoglobin 30.4 PG Mean Corpuscular Hemoglobin Concent 33.5 % Red Cell Distribution Width 16.1 % Platelet Count 49 TH/MM3 Mean Platelet Volume 10.2 FL Neutrophils (%) (Auto) 95.5 % Lymphocytes (%) (Auto) 1.2 % Monocytes (%) (Auto) 3.0 % Eosinophils (%) (Auto) 0.0 % Basophils (%) (Auto) 0.3 % Neutrophils # (Auto) 17.7 TH/MM3 Lymphocytes # (Auto) 0.2 TH/MM3 Monocytes # (Auto) 0.6 TH/MM3 Eosinophils # (Auto) 0.0 TH/MM3 Basophils # (Auto) 0.1 TH/MM3 CBC Comment AUTO DIFF Differential Comment AUTO DIFF CONFIRMED Platelet Estimate LOW Platelet Morphology Comment NORMAL Blood Urea Nitrogen 93 MG/DL Creatinine 4.44 MG/DL Random Glucose 211 MG/DL Calcium Level 8.1 MG/DL Sodium Level 138 MEQ/L Potassium Level 3.0 MEQ/L Chloride Level 98 MEQ/L Carbon Dioxide Level 24.3 MEQ/L Anion Gap 16 MEQ/L Estimat Glomerular Filtration Rate 10 ML/MIN Culture Results Microbiology Date/Time Source Procedure Growth Status 12/12/16 17:20 Sputum Endotracheal Gram Stain - Final Complete 12/12/16 17:20 Sputum Culture - Final Stenotrophomonas Maltophilia Complete Imaging Studies Last 24 hours Impressions Chest X-Ray 12/15/16 0000 Signed Impressions: Service Date/Time: Thursday, December 15, 2016 04:03 - CONCLUSION: Slightly improved bibasilar consolidation. Fermin Rodriguez MD Administered Medications Medications (Trade) Dose Ordered Sig/Dhruv Route PRN Reason Start Time Stop Time Status Last Admin Dose Admin Sodium Chloride (NS Flush) 2 ml UNSCH PRN IV FLUSH FLUSH AFTER USING IV ACCESS 12/02/16 16:15 12/14/16 03:11 Sodium Chloride (NS Flush) 2 ml BID IV FLUSH 12/02/16 21:00 12/15/16 07:55 Famotidine (Pepcid Inj) 20 mg DAILY IV PUSH 12/02/16 21:00 12/15/16 07:58 Heparin Sodium (Porcine) (Heparin Inj) 5,000 units Q12H SQ 12/02/16 17:00 Future Hold 12/13/16 14:53 Miscellaneous Information 1 Q361D XX 12/02/16 16:15 12/02/16 16:15 Chlorhexidine Gluconate (Chlorhexidine 2% Cloth) Taper DAILY@04 TOP 12/03/16 04:00 11/29/17 03:59 12/14/16 21:22 Senna/Docusate Sodium (Keely-Colace) 1 tab BID PO 12/02/16 21:00 12/15/16 07:58 Lorazepam (Ativan Inj) 1 mg Q4H PRN IV PUSH ANXIETY 12/02/16 16:45 12/09/16 10:20 Chlorhexidine Gluconate (Peridex 0.12% Liq) 15 ml BID@08,20 MT 12/03/16 08:00 12/15/16 07:55 Fentanyl Citrate 250 ml @ 5 mls/hr TITRATE PRN IV SEDATION 12/02/16 22:15 12/14/16 20:02 Sodium Chloride (NS Flush) DAILY IV FLUSH 12/03/16 09:00 12/15/16 07:56 Sodium Chloride (NS Flush) UNSCH PRN IV FLUSH SEE PROTOCOL 12/02/16 23:15 12/06/16 20:52 Artificial Tears (Tears Naturale Opth Soln) 1 drop Q8HR PRN EACH EYE DRY EYE 12/03/16 08:15 12/04/16 17:22 Sodium Chloride 1,000 ml @ 0 mls/hr UNSCH PRN OTHER SEE LABEL COMMENTS 12/05/16 17:30 12/07/16 02:14 Sodium Chloride 1,000 ml @ 0 mls/hr Q0M PRN OTHER For Prime & Rinse Back 12/07/16 10:56 12/15/16 09:56 Albumin Human 100 ml @ 60 mls/hr UNSCH PRN IV WITH DIALYSIS 12/07/16 11:00 12/15/16 09:58 Sodium Chloride (NS Flush) 5 ml UNSCH PRN IV FLUSH WITH DIALYSIS 12/07/16 11:00 12/15/16 09:56 Gentamicin Sulfate (Gentamicin (Dialysis) Inj) 20 mg UNSCH PRN OTHER WITH DIALYSIS 12/07/16 11:00 12/15/16 09:56 Epoetin Ronald (Epogen Inj) 10,000 units UNSCH PRN IV PUSH WITH DIALYSIS 12/07/16 11:00 12/15/16 09:56 Piperacillin Sod/ Tazobactam Sod 50 ml @ 100 mls/hr Q6H IV 12/07/16 17:00 12/15/16 05:14 Levofloxacin/ Dextrose 100 ml @ 100 mls/hr Q48H IV 12/07/16 16:00 12/13/16 15:15 Diltiazem HCl (Cardizem) 60 mg Q6HR PO 12/12/16 08:15 12/15/16 05:14 Hydrocortisone Sodium Succinate (SoluCORTEF INJ) 50 mg Q6H IV PUSH 12/13/16 15:00 12/15/16 07:58 Insulin Human Regular (NovoLIN R SUPPLEMENTAL SCALE) 1 Q6H SQ 12/13/16 14:00 12/15/16 07:58 Objective Remarks GENERAL: Intubated, female supine in bed, receiving hemodialysis. SKIN: Warm and dry. Left forearm bandages with no bleeding. HEAD: Normocephalic. EYES: No injection or drainage. NECK: Supple, trachea midline. CARDIOVASCULAR: Regular rate and rhythm RESPIRATORY: anterior dennis clear. on mechanical ventilation GASTROINTESTINAL: Abdomen mildly distended. EXTREMITIES: No cyanosis. +anasarca NEUROLOGICAL: intubated, sedated Assessment/Plan Problem List: (1) Pancytopenia ICD Codes: D61.818 - Other pancytopenia Plan: 12/15: platelets 49K today. clinically no bleeding. no transfusion today unless bleeding. --due to bone marrow suppression from sepsis. --expect her pancytopenia to get worse in the next several days if sepsis is not under control. --monitor her CBC closely and provide blood product support as needed. (2) Sepsis ICD Codes: A41.9 - Sepsis, unspecified organism Status: Acute (3) Acute kidney injury ICD Codes: N17.9 - Acute kidney failure, unspecified Status: Acute Plan: --receiving HD on Assessment 71 y/o female with coagulopathy d/t sepsis. Plan The exam, history, and the medical decision-making described in the above note were completed with the assistance of the mid-level provider. I reviewed and agree with the findings presented. I attest that I had a [id number] encounter with the patient on the same day, and personally performed and documented my assessment and findings in the medical record. Remains on vent. No bleeding noted. Platelet stable 49K. Continue supportive care. discussed with pt's . Problem Qualifiers (1) Sepsis: Qualified Codes: A41.9 - Sepsis, unspecified organism Tatum Proctor Dec 15, 2016 11:00 Jerman Monteiro MD Dec 15, 2016 14:38
--- NOTE | 2016-12-15 11:18 | HHI.NPPN ---
Subjective History of Present Illness 71 year old with septic shock, ARF Additional Remarks Patient remain intubated, clinically same. Objective Data Data Vital Signs Date Time Temp Pulse Resp B/P (MAP) Pulse Ox O2 Delivery O2 Flow Rate FiO2 12/15/16 11:07 100 35 12/15/16 10:00 86 14 99 12/15/16 10:00 86 12/15/16 09:00 98 19 134/62 (86) 96 12/15/16 08:00 35 12/15/16 08:00 91 12/15/16 08:00 97.5 91 14 135/63 (87) 96 12/15/16 07:20 99 35 12/15/16 07:15 35 12/15/16 06:00 88 12/15/16 04:08 100 35 12/15/16 04:00 97.1 86 19 157/72 (100) 100 12/15/16 04:00 35 12/15/16 04:00 86 12/15/16 04:00 97.1 88 18 132/70 (90) 98 12/15/16 04:00 35 12/15/16 02:00 86 12/15/16 01:02 100 35 12/15/16 00:00 86 12/15/16 00:00 97.1 86 19 157/72 (100) 100 12/15/16 00:00 35 12/14/16 22:02 100 35 12/14/16 22:00 81 12/14/16 20:00 80 18 100 12/14/16 20:00 97.9 81 17 160/72 (101) 12/14/16 20:00 81 12/14/16 20:00 35 12/14/16 19:15 99 35 12/14/16 18:00 86 12/14/16 17:00 100 35 12/14/16 16:00 80 18 100 12/14/16 16:00 80 12/14/16 16:00 100 12/14/16 13:40 100 100 12/14/16 13:35 78 19 176/75 (108) 100 12/14/16 13:35 78 12/14/16 13:30 74 12/14/16 13:30 74 19 151/74 (99) 99 12/14/16 13:26 74 18 181/79 (113) 98 12/14/16 13:26 74 12/14/16 13:20 74 12/14/16 13:20 74 19 141/80 (100) 100 12/14/16 13:15 74 18 147/71 (96) 100 12/14/16 13:15 74 12/14/16 13:15 100 35 12/14/16 13:10 76 12/14/16 13:10 76 19 176/77 (110) 100 12/14/16 13:05 77 19 153/78 (103) 100 12/14/16 13:05 77 12/14/16 13:00 74 12/14/16 13:00 74 18 167/74 (105) 100 12/14/16 12:55 76 12/14/16 12:55 76 18 155/74 (101) 99 12/14/16 12:50 73 18 177/77 (110) 99 12/14/16 12:50 73 12/14/16 12:45 79 12/14/16 12:45 79 18 154/76 (102) 99 12/14/16 12:40 68 18 112/64 (80) 100 12/14/16 12:40 68 12/14/16 12:35 68 12/14/16 12:35 68 18 114/64 (81) 100 12/14/16 12:30 67 18 121/58 (79) 100 12/14/16 12:30 67 12/14/16 12:25 69 18 121/63 (82) 100 12/14/16 12:25 69 12/14/16 12:20 71 12/14/16 12:20 71 18 127/64 (85) 100 12/14/16 12:15 72 12/14/16 12:15 72 18 145/72 (96) 99 12/14/16 12:10 74 12/14/16 12:10 74 19 160/75 (103) 99 12/14/16 12:05 76 18 135/74 (94) 99 12/14/16 12:05 76 12/14/16 12:00 35 12/14/16 12:00 76 12/14/16 12:00 76 18 163/77 (105) 99 12/14/16 11:35 78 12/14/16 11:30 82 12/14/16 11:25 72 12/14/16 11:20 72 -: 10/28/17 0442 12/15/16 044 Physical Exam Neck Neck Exam: Neck Supple Pulmonary Resp Exam: Clear Bilaterally Cardiology CV Exam: Regular Gastrointestinal/Abdomen GI Exam: Soft, Bowel Sounds Present, Non-Distended Integumentary Skin Exam: Clear Extremeties Extremities Exam: Pitting Edema, Dependent Edema Assessment/Plan Problem List: (1) Acute kidney injury ICD Codes: N17.9 - Acute kidney failure, unspecified Status: Acute Plan: Patient has septic shock and acute tubular necrosis making small amount of urine, Continue supportive care Continue to monitor avoid Nephrotoxins. Patient now started on intermittent HD, cholecystostomy tube draining Vas-Cath has been exchanged seen during dialysis UF 2.5 L 4 K bath BP at times low k 3 replace she has Anasarca (2) Acute cholecystitis ICD Codes: K81.0 - Acute cholecystitis Plan: Status post cholecystostomy (3) Sepsis ICD Codes: A41.9 - Sepsis, unspecified organism Status: Acute Plan: On antibiotics Problem Qualifiers (1) Sepsis: Qualified Codes: A41.9 - Sepsis, unspecified organism Myrtle Carlos MD Dec 15, 2016 11:18
[2016-12-15] MEDS ORDERED: POTASSIUM CHLOR 20 MEQ PREMIX 100 ML IV ONE (11:30)
--- NOTE | 2016-12-15 12:08 | HHI.PR ---
Subjective Subjective Notes no significant change Objective Vitals/I&O Vital Signs Date Time Temp Pulse Resp B/P (MAP) Pulse Ox O2 Delivery O2 Flow Rate FiO2 12/15/16 11:07 100 35 12/15/16 10:00 86 14 12/15/16 09:00 134/62 (86) 12/15/16 08:00 97.5 Labs Laboratory Tests Test 12/15/16 04:42 White Blood Count 18.5 Red Blood Count 2.76 Hemoglobin 8.4 Hematocrit 25.1 Mean Corpuscular Volume 90.7 Mean Corpuscular Hemoglobin 30.4 Mean Corpuscular Hemoglobin Concent 33.5 Red Cell Distribution Width 16.1 Platelet Count 49 Mean Platelet Volume 10.2 Neutrophils (%) (Auto) 95.5 Lymphocytes (%) (Auto) 1.2 Monocytes (%) (Auto) 3.0 Eosinophils (%) (Auto) 0.0 Basophils (%) (Auto) 0.3 Neutrophils # (Auto) 17.7 Lymphocytes # (Auto) 0.2 Monocytes # (Auto) 0.6 Eosinophils # (Auto) 0.0 Basophils # (Auto) 0.1 CBC Comment AUTO DIFF Differential Comment AUTO DIFF CONFIRMED Platelet Estimate LOW Platelet Morphology Comment NORMAL Blood Urea Nitrogen 93 Creatinine 4.44 Random Glucose 211 Calcium Level 8.1 Sodium Level 138 Potassium Level 3.0 Chloride Level 98 Carbon Dioxide Level 24.3 Anion Gap 16 Estimat Glomerular Filtration Rate 10 Date/Time Source Procedure Growth Status 12/09/16 15:13 Blood Peripheral Aerobic Blood Culture - Final NO GROWTH IN 5 DAYS Complete 12/09/16 15:13 Blood Peripheral Anaerobic Blood Culture - Final NO GROWTH IN 5 DAYS Complete 12/03/16 14:55 Fluid Bile Fluid Gram Stain - Final Complete 12/03/16 14:55 Body Fluid Culture - Final Enterococcus Faecalis Complete 12/12/16 17:20 Sputum Endotracheal Gram Stain - Final Complete 12/12/16 17:20 Sputum Culture - Final Stenotrophomonas Maltophilia Complete 12/09/16 18:00 Urine Catheterized Urine Urine Culture - Final NO GROWTH IN 48 HOURS. Complete Radiology Last 48 hours Impressions Percutaneous Cholangiogram 12/03/16 0000 Signed Impressions: Service Date/Time: Saturday, December 03, 2016 14:31 - CONCLUSION: Uncomplicated percutaneous cholecystostomy as above. Nain Sharma Jr., MD Chest X-Ray 12/02/16 2305 Signed Impressions: Service Date/Time: Friday, December 02, 2016 23:12 - CONCLUSION: 1. Satisfactory position of endotracheal tube as above. 2. Uncomplicated line placement. No evidence of pneumothorax. Royal Messer MD Chest X-Ray 12/02/16 1217 Signed Impressions: Service Date/Time: Friday, December 02, 2016 12:56 - CONCLUSION: Cardiomegaly. Left lower lobe atelectasis versus pneumonia. Royal Messer MD Liver Ultrasound 12/02/16 0000 Signed Impressions: Service Date/Time: Friday, December 02, 2016 19:12 - CONCLUSION: 1. Cholelithiasis with wall thickening and trace pericholecystic fluid. 2. No evidence of biliary duct distention. 3. No other significant abnormality. Jak Hughes MD Abdomen/Pelvis CT 12/02/16 0000 Signed Impressions: Service Date/Time: Friday, December 02, 2016 15:09 - CONCLUSION: 1. No evidence of acute abdominal or pelvic process. No masses are identified. 2. Cholelithiasis 3. Left lower lobe atelectasis versus pneumonia. 4. A large hiatal hernia is present. 5. Diverticulosis without evidence of diverticulitis. Royal Messer MD Abdomen: Non-distended, Non-tender Narrative Exam samantha tube with bile A/P Assessment and Plan 71yo female with sepsis, Acute cholecystitis, Sepsis, increased LFT, improving slowly. Cholangiogram shows duct obstruction d/w Dr. Chiu, continue current care, may still have biliary drainage issues, continue to follow Roly Portillo MD Dec 15, 2016 12:08
--- NOTE | 2016-12-15 12:52 | HHI.IDPN ---
Note Infectious Disease Note ID COVERAGE: Chart reviewed. remains on vent Tracks with eyes. afebrile Antibiotics zosyn levaquin Allergies: Coded Allergies: No Known Allergies (Unverified , 12/02/16) Objective Vital Signs Date Time Temp Pulse Resp B/P (MAP) Pulse Ox O2 Delivery O2 Flow Rate FiO2 12/15/16 12:00 35 12/15/16 12:00 103 12/15/16 12:00 99.1 103 22 137/65 (89) 98 12/15/16 11:07 100 35 12/15/16 11:00 96 16 124/59 (80) 99 12/15/16 10:00 86 14 99 12/15/16 10:00 86 12/15/16 09:00 98 19 134/62 (86) 96 12/15/16 08:00 35 12/15/16 08:00 91 12/15/16 08:00 97.5 91 14 135/63 (87) 96 12/15/16 07:20 99 35 12/15/16 07:15 35 12/15/16 06:00 88 12/15/16 04:08 100 35 12/15/16 04:00 97.1 86 19 157/72 (100) 100 12/15/16 04:00 35 12/15/16 04:00 86 12/15/16 04:00 97.1 88 18 132/70 (90) 98 12/15/16 04:00 35 12/15/16 02:00 86 12/15/16 01:02 100 35 12/15/16 00:00 86 12/15/16 00:00 97.1 86 19 157/72 (100) 100 12/15/16 00:00 35 12/14/16 22:02 100 35 12/14/16 22:00 81 12/14/16 20:00 80 18 100 12/14/16 20:00 97.9 81 17 160/72 (101) 12/14/16 20:00 81 12/14/16 20:00 35 12/14/16 19:15 99 35 12/14/16 18:00 86 12/14/16 17:00 100 35 12/14/16 16:00 80 18 100 12/14/16 16:00 80 12/14/16 16:00 100 12/14/16 13:40 100 100 12/14/16 13:35 78 19 176/75 (108) 100 12/14/16 13:35 78 12/14/16 13:30 74 12/14/16 13:30 74 19 151/74 (99) 99 12/14/16 13:26 74 18 181/79 (113) 98 12/14/16 13:26 74 12/14/16 13:20 74 12/14/16 13:20 74 19 141/80 (100) 100 12/14/16 13:15 74 18 147/71 (96) 100 12/14/16 13:15 74 12/14/16 13:15 100 35 12/14/16 13:10 76 12/14/16 13:10 76 19 176/77 (110) 100 12/14/16 13:05 77 19 153/78 (103) 100 12/14/16 13:05 77 12/14/16 13:00 74 12/14/16 13:00 74 18 167/74 (105) 100 12/14/16 12:55 76 12/14/16 12:55 76 18 155/74 (101) 99 12/14/16 12:50 73 18 177/77 (110) 99 12/14/16 12:50 71 Laboratory Tests Test 12/14/16 05:30 12/15/16 04:42 White Blood Count 17.0 TH/MM3 18.5 TH/MM3 Red Blood Count 2.76 MIL/MM3 2.76 MIL/MM3 Hemoglobin 8.4 GM/DL 8.4 GM/DL Hematocrit 25.0 % 25.1 % Mean Corpuscular Volume 90.7 FL 90.7 FL Mean Corpuscular Hemoglobin 30.3 PG 30.4 PG Mean Corpuscular Hemoglobin Concent 33.4 % 33.5 % Red Cell Distribution Width 15.6 % 16.1 % Platelet Count 46 TH/MM3 49 TH/MM3 Mean Platelet Volume 11.2 FL 10.2 FL CBC Comment AUTO DIFF AUTO DIFF Differential Total Cells Counted 100 Neutrophils % (Manual) 84 % Band Neutrophils % 7 % Lymphocytes % 4 % Monocytes % 5 % Neutrophils # (Manual) 15.5 TH/MM3 Nucleated Red Blood Cells 2 /100 WBC Differential Comment FINAL DIFF MANUAL AUTO DIFF CONFIRMED Platelet Estimate LOW LOW Platelet Morphology Comment NORMAL NORMAL Keratocytes OCC Neutrophils (%) (Auto) 95.5 % Lymphocytes (%) (Auto) 1.2 % Monocytes (%) (Auto) 3.0 % Eosinophils (%) (Auto) 0.0 % Basophils (%) (Auto) 0.3 % Neutrophils # (Auto) 17.7 TH/MM3 Lymphocytes # (Auto) 0.2 TH/MM3 Monocytes # (Auto) 0.6 TH/MM3 Eosinophils # (Auto) 0.0 TH/MM3 Basophils # (Auto) 0.1 TH/MM3 Laboratory Tests Test 12/14/16 05:30 12/15/16 04:42 Blood Urea Nitrogen 76 MG/DL 93 MG/DL Creatinine 3.83 MG/DL 4.44 MG/DL Random Glucose 232 MG/DL 211 MG/DL Total Protein 5.2 GM/DL Albumin 2.2 GM/DL Calcium Level 8.3 MG/DL 8.1 MG/DL Alkaline Phosphatase 281 U/L Aspartate Amino Transf (AST/SGOT) 46 U/L Alanine Aminotransferase (ALT/SGPT) 51 U/L Total Bilirubin 2.4 MG/DL Sodium Level 139 MEQ/L 138 MEQ/L Potassium Level 3.2 MEQ/L 3.0 MEQ/L Chloride Level 100 MEQ/L 98 MEQ/L Carbon Dioxide Level 25.0 MEQ/L 24.3 MEQ/L Anion Gap 14 MEQ/L 16 MEQ/L Estimat Glomerular Filtration Rate 12 ML/MIN 10 ML/MIN Microbiology Date/Time Source Procedure Growth Status 12/12/16 17:20 Sputum Endotracheal Gram Stain - Final Complete 12/12/16 17:20 Sputum Culture - Final Stenotrophomonas Maltophilia Complete GENERAL: Patient is in no acute distress. HEENT: EOMI, No icterus. NECK: Supple. No swelling. LUNGS: coarse breath sounds. CARDIAC: Regular rate and rhythm ABDOMEN: Soft, non tender. EXTREMITIES: No CC, 2+ edema. SKIN: No rash. IMPRESSION: On ventilator. Appears stable. Biliary sepsis ? uncontrolled Multi-organ failure: acute VDRF ARF, on HD Hypotension, resolved, currently off pressors Gram negative sepsis - biliary Acute calculous cholecystitis sp cholecystostomy tube placement - growing enterococccus chirinos S and >=3 MIXED ENTERIC GRAM NEGATIVE RODS in the bile clx - not much drainage ? E.coli UTI vs colonisatrion ? PNA vs ARDS - growing E.coli in sputum R to zosyn - growing Stenotrophomonas maltophilia. Continue zosyn Continue levaqin for zosyn-R E.coli and stenotrophomonas in the sputum. Juan A Alvarado MD Dec 15, 2016 12:52
[2016-12-15] MEDS: LEVOFLOXACIN 500 MG PREMIX INJ 100 ML IV SCH (15:13)
--- NOTE | 2016-12-15 15:24 | HHI.CCPN ---
Subjective Remarks/Hospital Course This is a 71-year-old female presents to the ED via EMS for evaluation of fever , shortness breath, vomiting, diarrhea, abdominal pain She reports that she's been short of breath for the past 2 weeks, but has progressed in the past 2 days. Patient has been seeing a residential substance abuse counselor for her shortness of breath, is not on home oxygen. The patient reported she has a history of smoking. She is also complaining of abdominal pain that started 2 days ago with vomiting and diarrhea. Patient has severe tenderness to mild palpation. She has history of VT. She received 500 mL normal saline IV bolus, and Zofran 4 mg IV. Critical care medicine was consulted. Subjective: 12/03: Tmax 100.9. Last evening the patient was noted to have significant respiratory decompensation with requirement for emergent intubation. The patient subsequently became hemodynamically unstable requiring vasopressor support. Patient is lightly sedated, and continues to have abdominal pain, and hypoactive bowel sounds, GI has been consulted. HIDA scan previously scheduled for this morning, after discussion with Dr Goodrich , plan for cholecystostomy tube placement by IR. Ultrasound liver showed no biliary duct distention but notable thickened gallbladder wall. 12/04: Tmax 100.4. Patient continues with severe metabolic acidosis, sodium bicarbonate infusion increased to 150 cc/hour yesterday afternoon. Antibiotics were expanded yesterday with addition of Micafungin and Diflucan. Blood cultures resulted with Enterobacter, Klebsiella pneumoniae and Escherichia coli. ID consulted recommendations appreciated. Patient is status post placement of percutaneous cholecystostomy tube . Patient now icteric, but LFTs are trending down. Records obtained from primary care physician with cardiology reports from earlier in the year, patient with noted pulmonary hypertension and NYHA class III. In-hospital echo pending. Patient continues on 3 pressors to maintain blood pressure. 12/05: Patient has been weaned off of vasopressor continues on to agents Gurinder- Synephrine, norepinephrine at low doses. Patient noted to still be thrombocytopenic platelet count decreased today HIT panel pending. INR remains elevated no active signs of bleeding liver function enzymes remain elevated. No urine output over the last 12 hours nephrology following discussion with for possible hemodialysis, will await nephrology recommendations. Sodium bicarbonate infusion discontinued. Patient remains alert GCS 11 T. 12/06: Afebrile. The patient continues on CRRT initiated last night, tolerating it well patient continues only on phenylephrine infusion to maintain MAP. The patient received 2 units of FFP per hematology/oncology recommendations. 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 12/07: Afebrile. Vasopressors discontinued at 4 AM, CRRT completed, patient will be transitioned to IHD 2 times a week. Patient was noted to be severely thrombocytopenic platelet count 32 ,plan for transfusions of platelets, fibrinogen level decreasing. Bile specimen noted to result Enterococcus faecalis, contacted Dr. Portillo general surgery updated him discussion regarding elective versus semielective laparoscopic cholecystectomy ,informed that no surgical intervention indicated at this time. Cholecystostomy tube continues to drain. 12/08: Afebrile. The patient has been transitioned to IHD 2 times a week. 3 L removal of fluid today. The patient remains hemodynamically stable off of all vasopressors greater than 24 hours at this time. A chin continues to have persistent leukocytosis with elevation in WBC count and downward trend up fibrinogen level . Cholecystostomy tube low output, CT scan abdomen pending. General surgery reconsulted to review surgical options for patient. 12/09 Patient is sedated with Fentanyl and intubated. s/p HD yesterday with removal 3L. NPO for possible OR today. 12/10 No events overnight. Sedated with Fentanyl and intubated. Afebrile. 12/11 Patient remains intubated and sedated with Fentanyl. Tolerated CPAP trials for 4 hrs yesterday. For HD today. Afebrile however her WBC increased 37 from 33. Moves spontaneously but does not follow commands. 12/12 Patient went into afib with RVR placed on Cardizem drip now at 5mg/hr on CPAP with PS 10, PEEP:5 and FIO2 35%. Afebrile. WBC is trending down. 12/13 No events overnight. For HD today. s/p transfusion 1unit PRBC yesterday. Afebrile. Seems more alert today. 12/14 Patient is sedated and intubated. s/p HD yesterday with removal 2L. Subjective: 12/15 Off pressors. Still with anasarca, HD today with removal of 3 L. CPAP 11/22 all day with RSBI in 30s. Sedation on hold all day and she is now tracking and lifts head off pillow to command. Very minimal movement of fingers bilaterally and strength 2/5 L leg, 1/5 R leg Objective Vital Signs Date Time Temp Pulse Resp B/P (MAP) Pulse Ox O2 Delivery O2 Flow Rate FiO2 12/15/16 12:00 35 12/15/16 12:00 103 12/15/16 12:00 99.1 22 137/65 (89) 98 Intake and Output 12/15/16 12/15/16 12/16/16 08:00 16:00 00:00 Intake Total 465 ml 200 ml Output Total 380 ml 3000 ml Balance 85 ml -2800 ml Result Diagram: 12/15/16 0442 12/15/16 0442 Other Results Microbiology Date/Time Source Procedure Growth Status 12/12/16 17:20 Sputum Endotracheal Gram Stain - Final Complete 12/12/16 17:20 Sputum Culture - Final Stenotrophomonas Maltophilia Complete Imaging Last Impressions Catheter Placement X-Ray 12/13/16 0000 Signed Impressions: Service Date/Time: November 14:14 - CONCLUSION: Uncomplicated line placement as above. Nain Sharma Jr., MD Head CT 12/11/16 0000 Signed Impressions: Service Date/Time: Sunday, December 11, 2016 17:09 - CONCLUSION: 1. Minimal chronic sinusitis in the sphenoid sinuses bilaterally. 2. Bilateral acute mastoiditis. 3. Otherwise negative. Anatomic detail is somewhat limited due to motion artifact, however. Jamel Johns MD Chest CT 12/11/16 0000 Signed Impressions: Service Date/Time: Sunday, December 11, 2016 17:15 - CONCLUSION: Small bibasilar consolidation and/or compressive collapse and bilateral pleural effusions. Kristen Deleon MD Abdomen/Pelvis CT 12/11/16 0000 Signed Impressions: Service Date/Time: Sunday, December 11, 2016 17:15 - CONCLUSION: 1. Cholecystostomy tube in place with decrease in the amount of hyperdensity within the lumen. 2. Persistent bilateral pleural effusions, stable. Persistent free fluid in the pelvis, slightly decreased. 3. Increase in the amount of induration of the lateral abdominal wall and pelvic subcutaneous tissues an increase swelling of the lateral musculature Nain Mejia MD Chest X-Ray 12/09/16 0600 Signed Impressions: Service Date/Time: Friday, December 09, 2016 04:06 - CONCLUSION: 1. Interval placement of nasogastric tube. 2. Bibasal opacities remain. Josef Luther MD Abdomen X-Ray 12/09/16 0000 Signed Impressions: Service Date/Time: Friday, December 09, 2016 12:19 - CONCLUSION: OG tube tip in the distal stomach. Fermin Wills MD Abdomen CT 12/08/16 0000 Signed Impressions: Service Date/Time: Thursday, December 08, 2016 17:52 - CONCLUSION: 1. Cholecystostomy tube in good position. Nain Sharma Jr., MD Percutaneous Cholangiogram 12/03/16 0000 Signed Impressions: Service Date/Time: Saturday, December 03, 2016 14:31 - CONCLUSION: Uncomplicated percutaneous cholecystostomy as above. Nain Sharma Jr., MD Liver Ultrasound 12/02/16 0000 Signed Impressions: Service Date/Time: Friday, December 02, 2016 19:12 - CONCLUSION: 1. Cholelithiasis with wall thickening and trace pericholecystic fluid. 2. No evidence of biliary duct distention. 3. No other significant abnormality. Jak Hughes MD Objective Remarks GENERAL: Chronically Critically ill appearing female whose continuous sedation has been held. SKIN: Warm and dry. HEAD: Atraumatic. Normocephalic. EYES: Pupils equal and round, pinpoint and sluggishly reactive bilaterally. No injection or drainage. Extraocular movements intact ENT: No nasal bleeding or discharge. Mucous membranes pink and moist. Orotracheally intubated NECK: Trachea midline. No JVD. CARDIOVASCULAR: Normal rate, regular rhythm. RESPIRATORY: No accessory muscle use. Clear to auscultation. Breath sounds equal bilaterally. GASTROINTESTINAL: Abdomen soft,nondistended, no guarding or headache and tenderness. Cholecystostomy tube draining dark brown fluid MUSCULOSKELETAL: Extremities without clubbing, cyanosis. 2-3+ edema of all extremities. VASC: RIJ VAscath in place with no drainage. NEUROLOGICAL: Eyes open, tracks with head slightly off the pillow. Very minimal movement of fingers bilaterally to command. Left leg 2 out of 6, right leg 1 out of 6 with foot drop. Procedures 12/02-abdominal ultrasound 12/03- percutaneous cholecystostomy tube placement 12/05-patient of CRRT, completion 12/07 12/08-initiation of IHD Date of Insertion: Dec 02, 2016 Line: Central Venous Catheter Side: Left Location: Femoral A/P Problem List: (1) Septic shock ICD Code: A41.9 - Sepsis, unspecified organism; R65.21 - Severe sepsis with septic shock Assessment and Plan ASSESSMENT Abdominal pain Hiatal hernia Diverticulitis Cholelithiasis with cholecystitis Transaminitis Nausea Hyperlipidemia Hypertension History of VT Coronary artery disease-S/P angioplasty 2 History of systolic CHF Acute hypoxemic respiratory failure Probable community-acquired pneumonia Hypokalemia Alcohol use disorder Elevated creatinine Pancytopenia Transaminitis Acute renal failure Multisystem organ failure secondary to septic shock Acute decompensated systolic heart failure Coagulopathy Bandemia Persistent leukocytosis Critical illness polyneuropathy PLAN Neurologic: Probable Critical illness polyneuropathy. Scoliosis h/o anterior cervical discectomy and fusion. CT brain: Minimal chronic sinusitis in the sphenoid sinuses bilaterally. Bilateral acute mastoiditis. Otherwise negative EEG yesterday: Suboptimal study due to a lot of artifact. Study consistent with encephalopathic process. No epileptic activity. She is generally extremely weak. Will minimize sedation and d/c continuous fentanyl. Precedex if any sedation is needed. Target RASS 0 Suspect encephalopathy secondary to sepsis with superimposed critical illness polyneuropathy. Will obtain MRI brain and C spine to r/o other diagnoses as is trying to get clearest view of overall prognosis while making decision regarding trach. Lortab as needed for pain. Monitor for signs of alcohol withdrawal s/p folate and MVI. Thiamine 100mg daily Respiratory: Acute respiratory failure Daily SBT. I would favor trial of extubation before decision regarding trach at this point. says he does not think she would want trach but would like to discuss with her if possible. Discussed that it is possible that she will not be capacitated for medical decision-making when she is extubated, though I do advocate for trial of extubation. 12/02-intubation 7.[address] chest: Small bibasilar consolidation Cardiovascular: On PO Cardizem 60mg Q6-Monitor HR and BP keep MAP>65mmHg Taper steroids- Decrease HC 50mg Qq12. Initial troponin 0.07->0.11->0.49. Possibly secondary to acute Kidney injury, and low-flow cardiac output state 12/04 echo results-EF 50% Patient's being seen regularly by director of outside sales in [place] Shanda MD [phone] Echo 10/03/15 per cardiology medical records([place])-normal LV function,EF 56%, mild septal LVH, mild TR, mild PAH Patient's home meds include ASA 81mg, Metoprolol 50 mg ER (recently discontinued secondary to hypotension by director of outside sales 3 weeks ago) will not restart secondary to hemodynamic instability, Rosvustatin at this time will not continue secondary to elevated LFT's continue to trend. NYHA classification III-per previous records Renal Monitor renal function, I/O's, avoid nephrotoxins. s/p HD 12/11 witj 3L removal. s/p HD 12/13 with 3L removal.. Nephrology following-Dr. Carlos, 12/05 initiation of CRRT 12/08 initiation of IHD-schedule per nephrology FEN/GI: Tube feeds with-Nepro @45ml/hr CT abd/pelvis: Cholecystostomy tube in place with decrease in the amount of hyperdensity within the lumen.. Persistent bilateral pleural effusions, stable. Persistent free fluid in the pelvis, slightly decreased. Increase in the amount of induration of the lateral abdominal wall and pelvic subcutaneous tissues an increase swelling of the lateral musculature 12/02 CT abdomen pelvis-diverticulosis without diverticulitis, large hiatal hernia, cholelithiasis, no acute process ultrasound abdomen-no biliary duct dilatation, cholelithiasis with cholecystitis trace pericholecystic fluid 12/03- percutaneous cholecystostomy drain placement percutaneous cholecystostomy draining (Bile- Enterococcus faecalis)- monitor drainage 12/[address] Pathak bile fluid-Enterococcus faecalis-no surgical intervention at this time, plan for tentative semi-elective versus elective cholecystectomy in the future 12/08 general surgery reconsulted to review surgical options-vasopressor pressor support is not required, patient remains with elevated leukocytosis, will follow up recommendations Hold statin in the setting of elevated LFTs 12/07 CRRT discontinued patient will begin IHD 2 times a week GI signed off. Discussed with Dr Portillo 12/15. who recommends further evaluation for CBD obstruction, obtaining MRCP. Heme/ID: ID is following-Dr. Ramos, abx per ID (Zosyn, Levaquin)WBC is trending down 12/09 Sputum cx: S. Maltophilia, Mold species. Follow up on sputum cx from 12/12 12/09 Pancultured- BC, Urine-NGTD 12/03 blood cultures-Enterobacter, Klebsiella pneumoniae, Escherichia coli 12/03 Legionella, influenza , pneumococcal antigen- negative 12/03 sputum culture-E coli 12/03: Bile fluid-Enterococcus faecalis Hematology oncology following 12/05 HIT panel-negative 12/06 2 units of FFP per hematology recommendations 12/07 transfuse 2 units of platelets 12/08-fibrinogen level Downward trend 392->213-> 165- transfuse 1 unit of cryoprecipitate Monitor CBC, s/p transfusion 1unit PRBC 12/12 Endocrine: Glucose monitoring per ICU protocol -- SSI MSK: PT evaluation and treat Prophylaxis: GI Prophylaxis Famotidine DVT Prophylaxis -- SCDs Heparin 5000 SQ BID (on Hold) in the setting of thrombocytopenia Lines: Central line left IJ placed 12/02 #14. Central access is not required. Will request vasc access team to place PIVs given severe edema and d/c CVL. Right IJ vascath placed 12/13 by IR.#3. Palliative care is following. ALT CODE. Extensive discussion with . He shares she is weak and debilitated at baseline due to scoliosis. does not feel she would want trach. He would like to discuss this with her if possible and I would advocate trial of extubation based on her CPAP performance. However, she is very weak and this may ultimately result in reintubation, which understands. Discussed with Dr. Portillo. Level 3 Nova Chiu MD Dec 15, 2016 15:24
[2016-12-15] MEDS ORDERED: ACETAMINOPHEN 325MG/HYDROcodone 7.5MG/15ML UDC OG-TUBE PRN (16:15)
[2016-12-15] MEDS ORDERED: oxyCODONE HCL ORAL CONC 5 MG/0.25 ML SYRINGE PO PRN ×2 (17:45)
--- NOTE | 2016-12-15 17:57 | RADRPT ---
EXAM DATE/TIME: 12/15/2016 17:40 [facility] COMPARISON: CT BRAIN W/O CONTRAST, December 11, 2016, 17:09. INDICATIONS : CVA. MEDICAL HISTORY : Hypertension. Myocardial infarction. Renal insufficiency, chronic. SURGICAL HISTORY : Tubal ligation. Fusion, cervical. Total knee replacement, right. ENCOUNTER: Subsequent ACUITY: 3 weeks PAIN SCORE: 0/10 LOCATION: TECHNIQUE: Multiplanar, multisequence MRI of the brain was performed without contrast. FINDINGS: CEREBRUM: The ventricles are normal for age. No evidence of midline shift, mass lesion, hemorrhage or acute in farction. No extraaxial fluid collections are seen. The pituitary gland and suprasellar cistern are normal in configuration. WHITE MATTER: No significant signal abnormalities are seen in the white matter. POSTERIOR FOSSA: The cerebellum and brainstem are intact. The 4th ventricle is midline. The cerebellopontine angle is unremarkable. The cerebellar tonsils are normal in position. DIFFUSION IMAGING: No focal areas of restricted diffusion are seen. No evidence of acute infarction. EXTRACRANIAL: The visualized portions of the orbits and paranasal sinuses are unremarkable. CONCLUSION: Negative exam with no evidence of hemorrhage, mass or infarction. Josef Luther MD on December 15, 2016 at 17:54 Board Certified Radiologist. This report was verified electronically.
--- NOTE | 2016-12-15 18:39 | MB ---
cc: MARYAM EDDY DATE OF CONSULTATION 12/11/16 REASON FOR CONSULTATION Left forearm wound. HISTORY OF PRESENT ILLNESS Nova Clifton per the chart as the patient is intubated and does not follow commands is a 71-year-old female who lives in the [facility]. [place] and developed severe abdominal pain and shortness of breath. Again, on my exam the patient is intubated and sedated. No family at the bedside. PAST MEDICAL HISTORY 1. Coronary artery disease status post myocardial infarction, 2. Hypertension 3. Hypercholesterolemia PAST SURGICAL HISTORY 1. Right knee replacement 2. ACDF ALLERGIES No known drug allergies MEDICATIONS 1. Lactobacillus 2. Aspirin, 3. Nitrostat, 4. Lasix, 5. Celecoxib 6. Metoprolol 7. Gabapentin 8. Omeprazole SOCIAL HISTORY Past history of tobacco use. Positive alcohol use. Denies any drug use. The patient is undergoing treatment for cholecystectomy. She is unfortunately now in multi-organ failure and acutely and critically ill. PHYSICAL EXAMINATION The patient is intubated and not following commands. There is a dressing in place over the left forearm which is removed. There is a laceration over the dorsal aspect of the left forearm measuring approximately 4x4 centimeters with no exposed tendon or muscle. No evidence of erythema or drainage. Unable to assess motor and sensory as the patient is not following commands. She does have 2+ radial pulse. She has edema throughout the body. LABORATORY DATA White count 33. Albumin 2. Cultures from the sputum positive for E-coli as well as the urine. Blood cultures positive for E-coli Klebsiella enterobacter. ASSESSMENT/PLAN A 71-year-old female intubated, sedated and acutely ill with a laceration on the dorsum of the left forearm. There is no sign of infection at this time. There is no evidence of exposed tendon or muscle. At this time, there is no indication for surgical intervention from a hand surgery standpoint. I instructed the nurse to place a non-adherent dressing. Wound care will also be consulted. Please call with any worsening of the wound for reevaluation. MD ART Lee/ /5:52 PM /6:24 PM JUSTIN
--- NOTE | 2016-12-15 18:41 | RADRPT ---
EXAM DATE/TIME: 12/15/2016 17:40 [facility] COMPARISON: No previous studies available for comparison. INDICATIONS : Myelopathy. MEDICAL HISTORY : Hypertension. Myocardial infarction. Renal insufficiency, chronic. SURGICAL HISTORY : Tubal ligation. Total knee replacement, right. Fusion, cervical. ENCOUNTER: Subsequent ACUITY: 3 weeks PAIN SCORE: 0/10 LOCATION: TECHNIQUE: Multiplanar, multisequence MRI examination of the cervical spine was performed. FINDINGS: VERTEBRAE: Normal vertebral body height. Homogeneous marrow signal. The patient is status post multilevel fusion with anterior screw-plate fixation device at the C4-C7 level. ALIGNMENT: No evidence of subluxation. CORD: Normal configuration and signal. POST FOSSA: The cerebellar tonsils are normal in position. C2-C3: The thecal sac has a normal configuration. There is no evidence of disc herniation or spinal canal s tenosis. There is mild narrowing of the right neuroforamina secondary to hypertrophic change involvin g the facet joint. C3-C4: There is a broad-based disc osteophyte complex with mild mass effect on the anterior thecal sac and s light flattening of the anterior cord with no abnormal signal. There is mild narrowing of the neural foramina. C4-C5: Status post anterior fusion. There is hypertrophic ridging along the posterior disc margin with mild mass effect on the anterior thecal sac and apparent slight flattening of the anterior cord with no ab normal signal. There is mild residual CSF surrounding the cord. There is mild to moderate narrowing o f the neural foramina bilaterally secondary to degenerative change involving the uncovertebral joint. C5-C6: Status post anterior fusion. There is hypertrophic ridging along the posterior disc margin with mild mass effect on the anterior thecal sac and no definite mass effect on the cord. The right neuroforami na is patent. There is mild narrowing of the left neural foramina. C6-C7: Status post anterior fusion. There is hypertrophic ridging along the posterior disc margin greatest i n left parasagittal region with mass effect on the left side of the thecal sac and no definite mass e ffect on the cord. Neural foramina are patent. C7-T1: The thecal sac has a normal configuration. There is no evidence of disc herniation or spinal canal s tenosis. The neural foramina are patent bilaterally. CONCLUSION: 1. Status post anterior multilevel fusion at the C4-C7 level. 2. Hypertrophic ridging is noted C4-5, C5-6 and C6-7 levels with mass effect on the anterior thecal s ac. There is slight flattening of the anterior cord at C4-5. 3. Disc osteophyte complex at C3-4 with mild flattening the anterior cord. 4. Narrowing of the neural foramina bilaterally at the C3-4 through C5-6 level and on the right at C2 -3 and on the left at C6-7. Josef Luther MD on December 15, 2016 at 18:28 Board Certified Radiologist. This report was verified electronically.
--- NOTE | 2016-12-15 19:01 | RADRPT ---
EXAM DATE/TIME: 12/15/2016 17:40 [facility] COMPARISON: CT ABDOMEN & PELVIS W/O CONTRAST, December 11, 2016, 17:15. CHOLANGIOGRAM THRU EXISTING CATHETER, Nov, 14:03. INDICATIONS : Obstruction. MEDICAL HISTORY : Hypertension. Myocardial infarction. Renal insufficiency, chronic. SURGICAL HISTORY : Fusion, cervical. Tubal ligation. Total knee replacement, right. Cholecystostomy ENCOUNTER: Subsequent ACUITY: 3 weeks PAIN SCORE: 0/10 LOCATION: TECHNIQUE: Multiplanar, multisequence magnetic resonance imaging of the abdomen was performed. High-resolution 3D dataset was utilized to reconstruct maximum-intensity projection (MIP) images. FINDINGS: Cholecystostomy catheter in place. No dilation of the intrahepatic biliary system. There are multip le filling defects present in the common bile duct measuring up to 10 mm in size. At least 7 defects are seen extending all way down to the ampulla.. The pancreatic duct is nondilated and appears to h ave a separate orifice. There is a mild amount of ascites the upper abdomen surrounding the liver. Small right pleural effusion. 8 mm cyst in the central posterior mid spleen. Moderate S-shaped scol iosis. 5 cm right adrenal mass is uniformly bright on T2-weighted images and has intermediate densit y on both in phase and out of phase Kramer sequences. CONCLUSION: 1. Multiple filling defects in the common bile duct down to the ampulla.. 2. Cholecystostomy catheter in place. 3. No dilation of the pancreatic duct. Nain Mejia MD on December 15, 2016 at 18:46 Board Certified Radiologist. This report was verified electronically.
[2016-12-16] VITALS (25 sets, daily range): BP systolic 131–170; BP diastolic 66–79; PULSE 73–94; RESP 15–26; TEMP 97.6–99.4; O2SAT 96–99
[2016-12-16] MEDS: INSULIN NovoLIN REGULAR SUPPLEMENTAL SCALE SQ SCH ×4 (02:00→20:00)
[2016-12-16] MEDS: CHLORHEXIDINE GLUCONATE 2 % 1 PACK (2 CLOTHS) TOP SCH (02:31)
[2016-12-16] MEDS: LORazepam 2 MG/ML VIAL IV PUSH PRN (03:34)
[2016-12-16 06:26] LABS: AUTOMATED NEUTROPHIL # 11.5 TH/MM3 (1.8-7.7); BASOPHIL % 0.1 % (0.0-2.0); LYMPH % 2.4 % (9.0-44.0); LYMPHOCYTE # 0.3 TH/MM3 (1.0-4.8); MEAN CORPUSCULAR HEMOGLOBIN 30.3 PG (27.0-34.0); MONO % 5.9 % (0.0-8.0); MONOCYTE # 0.7 TH/MM3 (0-0.9); NEUT % 91.6 % (16.0-70.0); PLATELET COUNT 48 TH/MM3 (150-450); RED BLOOD COUNT 2.16 MIL/MM3 (4.00-5.30); RED CELL DISTRIBUTION WIDTH 16.3 % (11.6-17.2); WHITE BLOOD COUNT 12.5 TH/MM3 (4.0-11.0)
[2016-12-16] MEDS: PIPERACIL-TAZO 2.25 GM PREMIX 50 ML IV SCH ×3 (06:26→16:23)
[2016-12-16] MEDS: DILTIAZEM HCL 60 MG TAB PO SCH ×3 (06:26→17:39)
[2016-12-16 06:39] LABS: HEMATOCRIT 19.8 % (35.0-46.0); HEMOGLOBIN 6.5 GM/DL (11.6-15.3)
[2016-12-16 07:10] LABS: ALBUMIN 2.1 GM/DL (3.4-5.0); ALKALINE PHOSPHATASE 224 U/L (45-117); ALT (GPT) 46 U/L (10-53); AST (GOT) 40 U/L (15-37); BICARBONATE 25.9 MEQ/L (21.0-32.0); BLOOD UREA NITROGEN 66 MG/DL (7-18); CHLORIDE 98 MEQ/L (98-107); CREATININE 3.47 MG/DL (0.50-1.00); GLOMERULAR FILTRATION RATE 13 ML/MIN (>89); GLUCOSE,RANDOM 212 MG/DL (74-106); SODIUM (NA) 139 MEQ/L (136-145); TOTAL BILIRUBIN ADULT 1.5 MG/DL (0.2-1.0); TOTAL PROTEIN 4.8 GM/DL (6.4-8.2)
[2016-12-16 07:20] LABS: INTERNATIONAL NORMALIZED RATIO 1.1 RATIO; PROTHROMBIN TIME - PATIENT 12.7 SEC (9.8-11.6)
[2016-12-16] MEDS: CHLORHEXIDINE 0.12% (ORAL KIT) 15 ML CUP MT SCH ×2 (07:57→21:00)
[2016-12-16] MEDS: HYDROCORTISONE SOD SUCCINATE 100 MG VIAL IV PUSH SCH ×2 (08:01→20:57)
[2016-12-16] MEDS: SODIUM CHLORIDE 0.9% FLUSH 10 ML FLUSH IV FLUSH SCH ×3 (08:02→20:59)
[2016-12-16] MEDS: FAMOTIDINE 20 MG/2 ML VIAL IV PUSH SCH (08:02)
[2016-12-16] MEDS: DOCUSATE SODIUM 50 MG/SENNA 8.6 MG TAB PO SCH ×2 (08:03→20:57)
[2016-12-16 08:07] LABS: HEMATOCRIT 21.8 % (35.0-46.0); HEMOGLOBIN 7.2 GM/DL (11.6-15.3); MEAN CELL VOLUME 91.8 FL (80.0-100.0); MEAN CORPUSCULAR HEMOGLOBIN 30.1 PG (27.0-34.0); MEAN CORPUSCULAR HGB CONC 32.8 % (32.0-36.0); MEAN PLATELET VOLUME 10.4 FL (7.0-11.0); PLATELET COUNT 58 TH/MM3 (150-450); RED BLOOD COUNT 2.38 MIL/MM3 (4.00-5.30); RED CELL DISTRIBUTION WIDTH 17.1 % (11.6-17.2); WHITE BLOOD COUNT 14.7 TH/MM3 (4.0-11.0)
[2016-12-16 09:11] LABS: ALBUMIN 2.3 GM/DL (3.4-5.0); ALKALINE PHOSPHATASE 244 U/L (45-117); ALT (GPT) 48 U/L (10-53); AST (GOT) 40 U/L (15-37); BICARBONATE 26.3 MEQ/L (21.0-32.0); BLOOD UREA NITROGEN 66 MG/DL (7-18); CALCIUM 8.2 MG/DL (8.5-10.1); CHLORIDE 99 MEQ/L (98-107); CREATININE 3.48 MG/DL (0.50-1.00); GLOMERULAR FILTRATION RATE 13 ML/MIN (>89); GLUCOSE,RANDOM 203 MG/DL (74-106); SODIUM (NA) 140 MEQ/L (136-145); TOTAL BILIRUBIN ADULT 1.7 MG/DL (0.2-1.0); TOTAL PROTEIN 5.2 GM/DL (6.4-8.2)
[2016-12-16] MEDS ORDERED: POTASSIUM CHLOR 40 MEQ PREMIX 100 ML IV ONE (09:45)
[2016-12-16 10:17] LABS: ACANTHOCYTES OCC (NORMAL)
--- NOTE | 2016-12-16 10:38 | PD.ONC.PN ---
Subjective Subjective Remarks Afebrile overnight. Patient intubated, sedated Objective Data Date Time Temp Pulse Resp B/P (MAP) Pulse Ox O2 Delivery O2 Flow Rate FiO2 12/16/16 10:00 79 12/16/16 10:00 79 17 140/73 (95) 98 12/16/16 09:00 75 18 131/66 (87) 97 12/16/16 08:00 35 12/16/16 08:00 98.5 73 15 150/66 (94) 98 12/16/16 07:25 98 35 12/16/16 06:00 80 12/16/16 04:07 99 35 12/16/16 04:00 35 12/16/16 04:00 92 12/16/16 04:00 97.6 92 21 133/68 (89) 97 12/16/16 02:00 84 12/16/16 01:52 98 35 12/16/16 00:00 99.4 12/16/16 00:00 99.4 92 21 163/79 (107) 97 12/16/16 00:00 35 12/16/16 00:00 92 12/15/16 22:05 100 35 12/15/16 22:00 75 12/15/16 20:42 98 35 12/15/16 20:00 35 12/15/16 20:00 99.5 79 19 157/72 (100) 98 12/15/16 20:00 79 12/15/16 18:44 100 100 12/15/16 18:30 35 12/15/16 16:00 35 12/15/16 16:00 98 12/15/16 16:00 98.6 98 15 155/81 (105) 98 12/15/16 16:00 99 35 12/15/16 15:00 86 18 151/68 (95) 98 12/15/16 14:00 91 12/15/16 14:00 91 17 153/65 (94) 97 12/15/16 13:00 89 17 138/64 (88) 98 12/15/16 12:00 35 12/15/16 12:00 103 12/15/16 12:00 99.1 103 22 137/65 (89) 98 12/15/16 11:07 100 35 12/15/16 11:00 96 16 124/59 (80) 99 12/16/16 12/16/16 12/16/16 07:00 15:00 23:00 Intake Total 50 ml 50 ml Output Total 400 ml Balance -350 ml 50 ml Result Diagram: 12/16/16 0740 12/16/16 0740 Laboratory Results Laboratory Tests Test 12/16/16 05:20 12/16/16 07:40 White Blood Count 12.5 TH/MM3 14.7 TH/MM3 Red Blood Count 2.16 MIL/MM3 2.38 MIL/MM3 Hemoglobin 6.5 GM/DL 7.2 GM/DL Hematocrit 19.8 % 21.8 % Mean Corpuscular Volume 92.0 FL 91.8 FL Mean Corpuscular Hemoglobin 30.3 PG 30.1 PG Mean Corpuscular Hemoglobin Concent 33.0 % 32.8 % Red Cell Distribution Width 16.3 % 17.1 % Platelet Count 48 TH/MM3 58 TH/MM3 Mean Platelet Volume 10.0 FL 10.4 FL Neutrophils (%) (Auto) 91.6 % Lymphocytes (%) (Auto) 2.4 % Monocytes (%) (Auto) 5.9 % Eosinophils (%) (Auto) 0.0 % Basophils (%) (Auto) 0.1 % Neutrophils # (Auto) 11.5 TH/MM3 Lymphocytes # (Auto) 0.3 TH/MM3 Monocytes # (Auto) 0.7 TH/MM3 Eosinophils # (Auto) 0.0 TH/MM3 Basophils # (Auto) 0.0 TH/MM3 CBC Comment AUTO DIFF Differential Comment AUTO DIFF CONFIRMED Platelet Estimate LOW Platelet Morphology Comment NORMAL Polychromasia 2.0 % Basophilic Stippling FAINT Acanthocytes OCC Prothrombin Time 12.7 SEC Prothromb Time International Ratio 1.1 RATIO Activated Partial Thromboplast Time 29.3 SEC Fibrinogen 218 mg/dL Blood Urea Nitrogen 66 MG/DL 66 MG/DL Creatinine 3.47 MG/DL 3.48 MG/DL Random Glucose 212 MG/DL 203 MG/DL Total Protein 4.8 GM/DL 5.2 GM/DL Albumin 2.1 GM/DL 2.3 GM/DL Calcium Level 8.0 MG/DL 8.2 MG/DL Alkaline Phosphatase 224 U/L 244 U/L Aspartate Amino Transf (AST/SGOT) 40 U/L 40 U/L Alanine Aminotransferase (ALT/SGPT) 46 U/L 48 U/L Total Bilirubin 1.5 MG/DL 1.7 MG/DL Sodium Level 139 MEQ/L 140 MEQ/L Potassium Level 2.8 MEQ/L 2.7 MEQ/L Chloride Level 98 MEQ/L 99 MEQ/L Carbon Dioxide Level 25.9 MEQ/L 26.3 MEQ/L Anion Gap 15 MEQ/L 15 MEQ/L Estimat Glomerular Filtration Rate 13 ML/MIN 13 ML/MIN Administered Medications Medications (Trade) Dose Ordered Sig/Dhruv Route PRN Reason Start Time Stop Time Status Last Admin Dose Admin Sodium Chloride (NS Flush) 2 ml UNSCH PRN IV FLUSH FLUSH AFTER USING IV ACCESS 12/02/16 16:15 12/14/16 03:11 Sodium Chloride (NS Flush) 2 ml BID IV FLUSH 12/02/16 21:00 12/16/16 08:02 Famotidine (Pepcid Inj) 20 mg DAILY IV PUSH 12/02/16 21:00 12/16/16 08:02 Heparin Sodium (Porcine) (Heparin Inj) 5,000 units Q12H SQ 12/02/16 17:00 Future Hold 12/13/16 14:53 Miscellaneous Information 1 Q361D XX 12/02/16 16:15 12/02/16 16:15 Chlorhexidine Gluconate (Chlorhexidine 2% Cloth) Taper DAILY@04 TOP 12/03/16 04:00 11/29/17 03:59 12/14/16 21:22 Senna/Docusate Sodium (Keely-Colace) 1 tab BID PO 12/02/16 21:00 12/15/16 07:58 Lorazepam (Ativan Inj) 1 mg Q4H PRN IV PUSH ANXIETY 12/02/16 16:45 12/16/16 03:34 Chlorhexidine Gluconate (Peridex 0.12% Liq) 15 ml BID@08,20 MT 12/03/16 08:00 12/16/16 07:57 Sodium Chloride (NS Flush) DAILY IV FLUSH 12/03/16 09:00 12/16/16 08:02 Sodium Chloride (NS Flush) UNSCH PRN IV FLUSH SEE PROTOCOL 12/02/16 23:15 12/06/16 20:52 Artificial Tears (Tears Naturale Opth Soln) 1 drop Q8HR PRN EACH EYE DRY EYE 12/03/16 08:15 12/04/16 17:22 Sodium Chloride 1,000 ml @ 0 mls/hr UNSCH PRN OTHER SEE LABEL COMMENTS 12/05/16 17:30 12/07/16 02:14 Sodium Chloride 1,000 ml @ 0 mls/hr Q0M PRN OTHER For Prime & Rinse Back 12/07/16 10:56 12/15/16 09:56 Albumin Human 100 ml @ 60 mls/hr UNSCH PRN IV WITH DIALYSIS 12/07/16 11:00 12/15/16 09:58 Sodium Chloride (NS Flush) 5 ml UNSCH PRN IV FLUSH WITH DIALYSIS 12/07/16 11:00 12/15/16 09:56 Gentamicin Sulfate (Gentamicin (Dialysis) Inj) 20 mg UNSCH PRN OTHER WITH DIALYSIS 12/07/16 11:00 12/15/16 09:56 Epoetin Ronald (Epogen Inj) 10,000 units UNSCH PRN IV PUSH WITH DIALYSIS 12/07/16 11:00 12/15/16 09:56 Piperacillin Sod/ Tazobactam Sod 50 ml @ 100 mls/hr Q6H IV 12/07/16 17:00 12/16/16 06:26 Levofloxacin/ Dextrose 100 ml @ 100 mls/hr Q48H IV 12/07/16 16:00 12/15/16 15:13 Diltiazem HCl (Cardizem) 60 mg Q6HR PO 12/12/16 08:15 12/16/16 06:26 Insulin Human Regular (NovoLIN R SUPPLEMENTAL SCALE) 1 Q6H SQ 12/13/16 14:00 12/16/16 07:58 Hydrocortisone Sodium Succinate (SoluCORTEF INJ) 50 mg Q12HR IV PUSH 12/15/16 21:00 12/16/16 08:01 Potassium Chloride 100 ml @ 25 mls/hr NOW ONCE IV 12/16/16 09:45 12/16/16 13:44 12/16/16 09:58 Objective Remarks GENERAL: Intubated, sedated female SKIN: Warm and dry. Left forearm bandages with serous drainage only. HEAD: Normocephalic. EYES: No injection or drainage. NECK: Supple, trachea midline. CARDIOVASCULAR:+S1/S2 RESPIRATORY: on mechanical ventilation GASTROINTESTINAL: Abdomen mildly distended. EXTREMITIES: No cyanosis. +anasarca NEUROLOGICAL: intubated, sedated Assessment/Plan Problem List: (1) Pancytopenia ICD Codes: D61.818 - Other pancytopenia Plan: 12/16: platelets 58K today. hgb fell to 6.5 overnight. clinically no bleeding. will order 1 unit pRBC --due to bone marrow suppression from sepsis. --expect her pancytopenia to get worse in the next several days if sepsis is not under control. --monitor her CBC closely and provide blood product support as needed. (2) Sepsis ICD Codes: A41.9 - Sepsis, unspecified organism Status: Acute (3) Acute kidney injury ICD Codes: N17.9 - Acute kidney failure, unspecified Status: Acute Plan: --receiving HD on Assessment 71 y/o female with coagulopathy d/t sepsis. Attending Statement The exam, history, and the medical decision-making described in the above note were completed with the assistance of the mid-level provider. I reviewed and agree with the findings presented. I attest that I had a [id number] encounter with the patient on the same day, and personally performed and documented my assessment and findings in the medical record. No bleeding noted. Fibrinogen trended up. Platelet stable. Transfuse PRBC x1 U. Continue supportive care. Problem Qualifiers (1) Sepsis: Qualified Codes: A41.9 - Sepsis, unspecified organism Tatum Proctor Dec 16, 2016 10:38 Jerman Monteiro MD Dec 16, 2016 15:26
--- NOTE | 2016-12-16 10:44 | HHI.CCPN ---
Subjective Remarks/Hospital Course This is a 71-year-old female presents to the ED via EMS for evaluation of fever , shortness breath, vomiting, diarrhea, abdominal pain She reports that she's been short of breath for the past 2 weeks, but has progressed in the past 2 days. 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 The patient reported she has a history of smoking. She is also complaining of abdominal pain that started 2 days ago with vomiting and diarrhea. Patient has severe tenderness to mild palpation. She has history of VT. She received 500 mL normal saline IV bolus, and Zofran 4 mg IV. Critical care medicine was consulted. Subjective: 12/03: Tmax 100.9. Last evening the patient was noted to have significant respiratory decompensation with requirement for emergent intubation. The patient subsequently became hemodynamically unstable requiring vasopressor support. Patient is lightly sedated, and continues to have abdominal pain, and hypoactive bowel sounds, GI has been consulted. HIDA scan previously scheduled for this morning, after discussion with Dr Goodrich , plan for cholecystostomy tube placement by IR. Ultrasound liver showed no biliary duct distention but notable thickened gallbladder wall. 12/04: Tmax 100.4. Patient continues with severe metabolic acidosis, sodium bicarbonate infusion increased to 150 cc/hour yesterday afternoon. Antibiotics were expanded yesterday with addition of Micafungin and Diflucan. Blood cultures resulted with Enterobacter, Klebsiella pneumoniae and Escherichia coli. ID consulted recommendations appreciated. Patient is status post placement of percutaneous cholecystostomy tube . Patient now icteric, but LFTs are trending down. Records obtained from primary care physician with cardiology reports from earlier in the year, patient with noted pulmonary hypertension and NYHA class III. In-hospital echo pending. Patient continues on 3 pressors to maintain blood pressure. 12/05: Patient has been weaned off of vasopressor continues on to agents Gurinder- Synephrine, norepinephrine at low doses. Patient noted to still be thrombocytopenic platelet count decreased today HIT panel pending. INR remains elevated no active signs of bleeding liver function enzymes remain elevated. No urine output over the last 12 hours nephrology following discussion with for possible hemodialysis, will await nephrology recommendations. Sodium bicarbonate infusion discontinued. Patient remains alert GCS 11 T. 12/06: Afebrile. The patient continues on CRRT initiated last night, tolerating it well patient continues only on phenylephrine infusion to maintain MAP. The patient received 2 units of FFP per hematology/oncology recommendations. Plan for evaluation and placement for NG tube placement band leader. 12/07: Afebrile. Vasopressors discontinued at 4 AM, CRRT completed, patient will be transitioned to IHD 2 times a week. Patient was noted to be severely thrombocytopenic platelet count 32 ,plan for transfusions of platelets, fibrinogen level decreasing. Bile specimen noted to result Enterococcus faecalis, contacted Dr. Portillo general surgery updated him discussion regarding elective versus semielective laparoscopic cholecystectomy ,informed that no surgical intervention indicated at this time. Cholecystostomy tube continues to drain. 12/08: Afebrile. The patient has been transitioned to IHD 2 times a week. 3 L removal of fluid today. The patient remains hemodynamically stable off of all vasopressors greater than 24 hours at this time. A chin continues to have persistent leukocytosis with elevation in WBC count and downward trend up fibrinogen level . Cholecystostomy tube low output, CT scan abdomen pending. General surgery reconsulted to review surgical options for patient. 12/09 Patient is sedated with Fentanyl and intubated. s/p HD yesterday with removal 3L. NPO for possible OR today. 12/10 No events overnight. Sedated with Fentanyl and intubated. Afebrile. 12/11 Patient remains intubated and sedated with Fentanyl. Tolerated CPAP trials for 4 hrs yesterday. For HD today. Afebrile however her WBC increased 37 from 33. Moves spontaneously but does not follow commands. 12/12 Patient went into afib with RVR placed on Cardizem drip now at 5mg/hr on CPAP with PS 10, PEEP:5 and FIO2 35%. Afebrile. WBC is trending down. 12/13 No events overnight. For HD today. s/p transfusion 1unit PRBC yesterday. Afebrile. Seems more alert today. 12/14 Patient is sedated and intubated. s/p HD yesterday with removal 2L. 12/15 Off pressors. Still with anasarca, HD today with removal of 3 L. CPAP 11/22 all day with RSBI in 30s. Sedation on hold all day and she is now tracking and lifts head off pillow to command. Very minimal movement of fingers bilaterally and strength 2/5 L leg, 1/5 R leg Subjective: 12/16 Remains off vasopressors. Tolerated CPAP 11/22 yesterday. Continuing daily pressure support ventilation. MRCP resulted with multiple filling defects of common bile duct. Discussed with Dr. Portillo and will reconsult gastroenterology regarding ERCP. She is more alert off sedation, quadriparetic. Multiple risk factors for critical illness polyneuropathy. Prior anterior cervical fusion and osteophyte with flattening of cord C3/C4 hypertrophic ridge with anterior cord flattening at C4/C5 so will obtain neurosurgical opinion. She is more alert today and has remained off continuous sedation for 24 hours. MRI brain negative. Overall condition discussed with her . Objective Vital Signs Date Time Temp Pulse Resp B/P (MAP) Pulse Ox O2 Delivery O2 Flow Rate FiO2 12/16/16 10:00 79 12/16/16 10: 17 140/73 (95) 98 12/16/16 08:00 35 12/16/16 08:00 98.5 Intake and Output 12/16/16 12/16/16 12/17/16 08:00 16:00 00:00 Intake Total 100 ml Output Total 400 ml Balance -300 ml Result Diagram: 12/16/16 0740 12/16/16 0740 Imaging Last Impressions Catheter Placement X-Ray 12/13/16 0000 Signed Impressions: Service Date/Time: November 14:14 - CONCLUSION: Uncomplicated line placement as above. Nain Sharma Jr., MD Head CT 12/11/16 0000 Signed Impressions: Service Date/Time: Sunday, December 11, 2016 17:09 - CONCLUSION: 1. Minimal chronic sinusitis in the sphenoid sinuses bilaterally. 2. Bilateral acute mastoiditis. 3. Otherwise negative. Anatomic detail is somewhat limited due to motion artifact, however. Jamel Johns MD Chest CT 12/11/16 0000 Signed Impressions: Service Date/Time: Sunday, December 11, 2016 17:15 - CONCLUSION: Small bibasilar consolidation and/or compressive collapse and bilateral pleural effusions. Kristen Deleon MD Abdomen/Pelvis CT 12/11/16 0000 Signed Impressions: Service Date/Time: Sunday, December 11, 2016 17:15 - CONCLUSION: 1. Cholecystostomy tube in place with decrease in the amount of hyperdensity within the lumen. 2. Persistent bilateral pleural effusions, stable. Persistent free fluid in the pelvis, slightly decreased. 3. Increase in the amount of induration of the lateral abdominal wall and pelvic subcutaneous tissues an increase swelling of the lateral musculature Nain Mejia MD Chest X-Ray 12/09/16 0600 Signed Impressions: Service Date/Time: Friday, December 09, 2016 04:06 - CONCLUSION: 1. Interval placement of nasogastric tube. 2. Bibasal opacities remain. Josef Luther MD Abdomen X-Ray 12/09/16 0000 Signed Impressions: Service Date/Time: Friday, December 09, 2016 12:19 - CONCLUSION: OG tube tip in the distal stomach. Fermin Wills MD Abdomen CT 12/08/16 0000 Signed Impressions: Service Date/Time: Thursday, December 08, 2016 17:52 - CONCLUSION: 1. Cholecystostomy tube in good position. Nain Sharma Jr., MD Percutaneous Cholangiogram 12/03/16 0000 Signed Impressions: Service Date/Time: Saturday, December 03, 2016 14:31 - CONCLUSION: Uncomplicated percutaneous cholecystostomy as above. Nain Sharma Jr., MD Liver Ultrasound 12/02/16 0000 Signed Impressions: Service Date/Time: Friday, December 02, 2016 19:12 - CONCLUSION: 1. Cholelithiasis with wall thickening and trace pericholecystic fluid. 2. No evidence of biliary duct distention. 3. No other significant abnormality. Jak Hughes MD Objective Remarks GENERAL: Chronically Critically ill appearing female who is off continuous sedation. SKIN: Warm and dry. HEAD: Atraumatic. Normocephalic. EYES: Pupils equal and round, pinpoint and sluggishly reactive bilaterally. No injection or drainage. Extraocular movements intact ENT: No nasal bleeding or discharge. Mucous membranes pink and moist. Orotracheally intubated. NECK: Trachea midline. No JVD. CARDIOVASCULAR: Normal rate, regular rhythm. No mrg. RESPIRATORY: No accessory muscle use. Clear to auscultation. Breath sounds equal bilaterally. GASTROINTESTINAL: Abdomen soft,nondistended, no guarding. Cholecystostomy tube draining dark brown fluid. Tolerating tube feeds. MUSCULOSKELETAL: Extremities without clubbing, cyanosis. 2-3+ edema of all extremities. VASC: RIJ VAscath in place with no drainage. NEUROLOGICAL: Eyes open, tracks. Moves fingers bilaterally to command. "thumbs up" on left but not right. Left leg internal and external rotation 2/6, hip flexors/hamstrings 1/6. Ankle dorsiflexion 1/6, wiggles toes. Right leg 1 out of 6 hip flexors/and hamstrings, wiggles toes + Foot drop Procedures 12/02-abdominal ultrasound 12/03- percutaneous cholecystostomy tube placement 12/05-patient of CRRT, completion 12/07 12/08-initiation of IHD Date of Insertion: Dec 02, 2016 Line: Central Venous Catheter Side: Left Location: Femoral A/P Problem List: (1) Septic shock ICD Code: A41.9 - Sepsis, unspecified organism; R65.21 - Severe sepsis with septic shock Status: Resolved Assessment and Plan ASSESSMENT Abdominal pain Hiatal hernia Diverticulitis Cholelithiasis with cholecystitis Transaminitis Nausea Hyperlipidemia Hypertension History of VT Coronary artery disease-S/P angioplasty 2 History of systolic CHF Acute hypoxemic respiratory failure Probable community-acquired pneumonia Hypokalemia Alcohol use disorder Elevated creatinine Pancytopenia Transaminitis Acute renal failure Multisystem organ failure secondary to septic shock Acute decompensated systolic heart failure Coagulopathy Bandemia Persistent leukocytosis Critical illness polyneuropathy PLAN Neurologic: Quadriparesis, Probable Critical illness polyneuropathy. Scoliosis h/o anterior cervical discectomy and fusion. Acute encephalopathy, secondary to sepsis, improved. CT brain: Minimal chronic sinusitis in the sphenoid sinuses bilaterally. Bilateral acute mastoiditis. Otherwise negative EEG 12/13 : Suboptimal study due to a lot of artifact. Study consistent with encephalopathic process. No epileptic activity. More awake now off continous sedation. Discontinued fentanyl drip morning of and use lortab prn pain. Add precedex if any sedation is needed. Target RASS 0 MRI brain 12/15 no acute hemorrhage/mass infarct. She is generally very weak and high likelihood of critical illness polyneuropathy given prior septic shock, vasopressor requirement, steroids, etc. MRI Cspine report - flattening of anterior cord C3-C5 . NSG consulted. Dr Jean states no significant cord impingement or signal changes and agrees symptoms more likely related to critical illness polyneuropathy. s/p folate and MVI, thiamine. Respiratory: Acute respiratory failure Daily PSV. Will not extubate today pending plan for ERCP by Gastroenterology. Tolerated C Pap throughout the day 12/15 and currently is tolerating C Pap 8 over 5. She is weak which may limit extubation potential, but I would favor trial of extubation before decision regarding trach. says he does not think she would want trach but would like to discuss with her if possible. Discussed that it is possible that she will not be capacitated for medical decision-making when she is extubated and he expresses understanding. 12/02-intubation 7.[address] chest: Small bibasilar consolidation Cardiovascular: On PO Cardizem 60mg Q6-Monitor HR and BP keep MAP>65mmHg Taper steroids- Decrease HC 25 q12 and then stop. Initial troponin 0.07->0.11->0.49. Possibly secondary to acute Kidney injury, and low-flow cardiac output state 12/04 echo results-EF 50% Patient's being seen regularly by development representative in [place] MD Echo 10/03/15 per cardiology medical records([place])-normal LV function,EF 56%, mild septal LVH, mild TR, mild PAH Patient's home meds include ASA 81mg, Metoprolol 50 mg ER (recently discontinued secondary to hypotension by development representative 3 weeks ago) will not restart secondary to hemodynamic instability, Rosvustatin at this time will not continue secondary to elevated LFT's continue to trend. NYHA classification III-per previous records Renal CKD stage III prior to admission, now on hemodialysis CRRT initiated 12/05 CRRT discontinued 12/07 HD inititated 12/08 Now on IHD per nephrology with last treatment 12/15 . Nephrology following-Dr. Carlos, FEN/GI: Cholelithiasis, cholecystitis, cholangitis CBD obstruction Tube feeds with-Nepro @45ml/hr per nutrition recs. CT abd/pelvis: Cholecystostomy tube in place with decrease in the amount of hyperdensity within the lumen.. Persistent bilateral pleural effusions, stable. Persistent free fluid in the pelvis, slightly decreased. Increase in the amount of induration of the lateral abdominal wall and pelvic subcutaneous tissues an increase swelling of the lateral musculature 12/02 CT abdomen pelvis-diverticulosis without diverticulitis, large hiatal hernia, cholelithiasis, no acute process ultrasound abdomen-no biliary duct dilatation, cholelithiasis with cholecystitis trace pericholecystic fluid 12/03- percutaneous cholecystostomy drain placement percutaneous cholecystostomy draining (Bile- Enterococcus faecalis)- monitor drainage 12/[address] Pathak bile fluid-Enterococcus faecalis-no surgical intervention at this time, plan for tentative semi-elective versus elective cholecystectomy in the future 12/08 general surgery reconsulted to review surgical options-vasopressor pressor support is not required, patient remains with elevated leukocytosis, will follow up recommendations GI signed off 12/14. Discussed with Dr Portillo 12/15 who recommends further evaluation for CBD obstruction. Obtained MRCP. MRCP with multiple filling defects of common bile duct. Gastroenterology reconsulted for possible ERCP. Recheck lipase today. ID: ID is following-Dr. Ramos, abx per ID (Zosyn 12/07 #10, Levaquin 12/07 #10 ) 12/09 Sputum cx: S. Maltophilia, Mold species. Follow up on sputum cx from 12/12 12/09 Pancultured- BC, Urine-NGTD 12/03 blood cultures-Enterobacter, Klebsiella pneumoniae, Escherichia coli 12/03 Legionella, influenza , pneumococcal antigen- negative 12/03 sputum culture-E coli 12/03: Bile fluid-Enterococcus faecalis HEME Pancytopenia secondary to sepsis Hematology oncology following 12/05 HIT panel-negative 12/06 2 units of FFP per hematology recommendations 12/07 transfuse 2 units of platelets 12/08-fibrinogen level Downward trend 392->213-> 165- transfuse 1 unit of cryoprecipitate Monitor CBC, s/p transfusion 1unit PRBC 12/12 Transfusion 1 unit PRBC 12/16 per hematology. Endocrine: Glucose monitoring per ICU protocol -- SSI Steroid taper off as per above MSK: PT/OT following Prophylaxis: GI Prophylaxis Famotidine DVT Prophylaxis -- SCDs Heparin 5000 SQ BID (on Hold) in the setting of thrombocytopenia Lines: Central line left IJ placed 12/02 #14. Central access is not required. Vasc access obtained ultrasound guided PIV. D/c CVL. Right IJ vascath placed 12/13 by IR.#3. Palliative care is following. ALT CODE. Extensive discussion with . He shares she is weak and debilitated at baseline due to scoliosis. thinks she might not want trach. He would like to discuss this with her if possible and I would advocate trial of extubation based on her CPAP performance. However , she is extremely weak and this may ultimately result in reintubation, which understands. Also it is possible she will not be capacitated for MDM upon extubation, which also understands. At this point, will continue daily PSV to help mitigate respiratory muscle weakness.Tapering steroids off. Awaiting GI plan regarding ERCP. Discussed with Dr. Portillo. Level 3 Nova Chiu MD Dec 16, 2016 10:44
[2016-12-16] MEDS ORDERED: SODIUM CHLOR 0.9% 250 ML INJ 250 ML IV ONE (10:45)
--- NOTE | 2016-12-16 12:23 | HHI.NPPN ---
Subjective History of Present Illness 71 year old with septic shock, ARF Additional Remarks Patient remain intubated, clinically same. Objective Data Data 12/16/16 12/17/16 19:00 07:00 Intake Total 50 ml Balance 50 ml Intake IV Total 50 ml Vital Signs Date Time Temp Pulse Resp B/P (MAP) Pulse Ox O2 Delivery O2 Flow Rate FiO2 12/16/16 12:00 94 12/16/16 10:00 79 12/16/16 10:00 79 17 140/73 (95) 98 12/16/16 09:00 75 18 131/66 (87) 97 12/16/16 08:00 35 12/16/16 08:00 98.5 73 15 150/66 (94) 98 12/16/16 07:25 98 35 12/16/16 06:00 80 12/16/16 04:07 99 35 12/16/16 04:00 35 12/16/16 04:00 92 12/16/16 04:00 97.6 92 21 133/68 (89) 97 12/16/16 02:00 84 12/16/16 01:52 98 35 12/16/16 00:00 99.4 12/16/16 00:00 99.4 92 21 163/79 (107) 97 12/16/16 00:00 35 12/16/16 00:00 92 12/15/16 22:05 100 35 12/15/16 22:00 75 12/15/16 20:42 98 35 12/15/16 20:00 35 12/15/16 20:00 99.5 79 19 157/72 (100) 98 12/15/16 20:00 79 12/15/16 18:44 100 100 12/15/16 18:30 35 12/15/16 16:00 35 12/15/16 16:00 98 12/15/16 16:00 98.6 98 15 155/81 (105) 98 12/15/16 16:00 99 35 12/15/16 15:00 86 18 151/68 (95) 98 12/15/16 14:00 91 12/15/16 14:00 91 17 153/65 (94) 97 12/15/16 13:00 89 17 138/64 (88) 98 -: 12/16/16 0740 10/29/17 0740 Physical Exam Neck Neck Exam: Neck Supple Pulmonary Resp Exam: Clear Bilaterally Cardiology CV Exam: Regular Gastrointestinal/Abdomen GI Exam: Soft, Bowel Sounds Present, Non-Distended Integumentary Skin Exam: Clear Extremeties Extremities Exam: Pitting Edema, Dependent Edema Assessment/Plan Problem List: (1) Acute kidney injury ICD Codes: N17.9 - Acute kidney failure, unspecified Status: Acute Plan: Patient has septic shock and acute tubular necrosis making small amount of urine, Continue supportive care Continue to monitor avoid Nephrotoxins. Patient now started on intermittent HD, cholecystostomy tube draining Vas-Cath has been exchanged dialysis yesterday UF 3 L k 2.7 replace she has Anasarca (2) Acute cholecystitis ICD Codes: K81.0 - Acute cholecystitis Plan: Status post cholecystostomy (3) Sepsis ICD Codes: A41.9 - Sepsis, unspecified organism Status: Acute Plan: On antibiotics Problem Qualifiers (1) Sepsis: Qualified Codes: A41.9 - Sepsis, unspecified organism Myrtle Carlos MD Dec 16, 2016 12:23
[2016-12-16 13:30] LABS: LIPASE 2052 U/L (73-393)
--- NOTE | 2016-12-16 14:16 | PD.CONS ---
History of Present Illness Service Neurosurgery Consult Requested By Nova Chiu M.D. Reason for Consult Quadriparesis Primary Care Physician No Primary Care Physician Diagnoses: History of Present Illness The patient is a 71-year-old female who presented to the emergency room on 12/02 via EMS for evaluation of fever, shortness of breath with nausea, vomiting, diarrhea, abdominal pain. She was found to have mild pancytopenia. Positive acute renal failure with hypokalemia and hypomagnesemia with elevated liver enzymes and lactic acidosis. On 12/03/16 she developed respiratory decompensation requiring intubation and ventilatory support. Gastroenterology evaluation indicated cholecystitis with elevated liver function tests, severe sepsis with 10:15 blood cultures growing Enterobacter and Klebsiella pneumonia, E coli and gram-negative rods. Infectious disease was consulted with initial impression gram-negative sepsis, acute cholecystitis , possible Escherichia coli UTI, pneumonia versus ARDS. Cholecystostomy tube was placed for interventional radiology. Renal medicine has followed the patient for acute kidney failure with acute tubular necrosis possibly secondary to septic shock. Patient was placed on CRRT 12/05/16, transition to IHD 2 times a week on 12/08/16. She is requiring vasopressors for hypotension. She developed atrial fibrillation with RVR on 12/12/16, placed on Cardizem drip. On 12/15/16 intravenous sedation has been decreased, and patient noted to be more alert but quadriparetic off sedation. An MRI of the brain and cervical spine has subsequently been accomplished. Review of Systems Patient intubated. Unable to obtain review of systems Past Family Social History Allergies: Coded Allergies: No Known Allergies (Unverified , 12/02/16) Past Medical History Coronary artery disease Hypertension Dyslipidemia Previous myocardial infarction Cervical degenerative disc disease Diverticulosis Past Surgical History Anterior cervical discectomy and fusion-multilevel Right total knee arthroplasty Coronary angioplasty Reported Medications Reported Meds & Active Scripts Active Reported Acidophilus Probiotic (Lactobacillus) 100 Mg (1 Billion Cell) Cap 2 Tab PO DAILY Vitamin D-1000 (Cholecalciferol) 1,000 Unit Tab 2,000 Units PO DAILY Aspirin 81 (Aspirin) 81 Mg Tabdr 81 Mg PO DAILY Rosuvastatin (Rosuvastatin Calcium) 40 Mg Tab 40 Mg PO DAILY Patanol Opth 0.1% (Olopatadine HCl) 0.1 % Drops 1 Drop EACH EYE BID PRN Nitrostat SL (Nitroglycerin) 0.4 Mg Subl 0.4 Mg SL DIRECTED PRN 1 tablet under the tongue as needed for chest pain. Repeat every 5 minutes for a total of 3 DOSES or call 911 if NO relief. Furosemide 20 Mg Tab 20 Mg PO DAILY Celecoxib 200 Mg Cap 200 Mg PO HS Metoprolol Succinate ER 24 HR (Metoprolol Succinate) 50 Mg Tab 50 Mg PO DAILY Gabapentin 300 Mg Cap 300 Mg PO TID Ezetimibe 10 Mg Tab 10 Mg PO DAILY Cephalexin 500 Mg Cap 500 Mg PO DIRECTED FOR DENTIST VISIT Omeprazole 40 Mg Cap 40 Mg PO DAILY Family History Cardiac disease in her father, history of myasthenia gravis and her mother. No cancer, diabetes Social History Previous smoker Drinks 3 or 4 alcoholic beverages per day Physical Exam Vital Signs Vital Signs Date Time Temp Pulse Resp B/P (MAP) Pulse Ox O2 Delivery O2 Flow Rate FiO2 12/16/16 13:33 98.1 84 16 137/66 98 12/16/16 12:00 94 12/16/16 12:00 99.0 94 21 170/78 (108) 96 12/16/16 12:00 35 12/16/16 11:00 81 18 154/68 (96) 97 12/16/16 10:00 79 12/16/16 10:00 79 17 140/73 (95) 98 12/16/16 10:00 35 12/16/16 09:00 75 18 131/66 (87) 97 12/16/16 08:00 35 12/16/16 08:00 98.5 73 15 150/66 (94) 98 12/16/16 07:25 98 35 12/16/16 06:00 80 12/16/16 04:07 99 35 12/16/16 04:00 35 12/16/16 04:00 92 12/16/16 04:00 97.6 92 21 133/68 (89) 97 12/16/16 02:00 84 12/16/16 01:52 98 35 12/16/16 00:00 99.4 12/16/16 00:00 99.4 92 21 163/79 (107) 97 12/16/16 00:00 35 12/16/16 00:00 92 12/15/16 22:05 100 35 12/15/16 22:00 75 12/15/16 20:42 98 35 12/15/16 20:00 35 12/15/16 20:00 99.5 79 19 157/72 (100) 98 12/15/16 20:00 79 12/15/16 18:44 100 100 12/15/16 18:30 35 12/15/16 16:00 35 12/15/16 16:00 98 12/15/16 16:00 98.6 98 15 155/81 (105) 98 12/15/16 16:00 99 35 12/15/16 15:00 86 18 151/68 (95) 98 12/15/16 14:00 91 12/15/16 14:00 91 17 153/65 (94) 97 Physical Exam General: Normally developed female, Intubated , no apparent distress Respirations: Clear to auscultation Cardiac: Regular Abdomen: Soft, no apparent tenderness Extremities: No significant edema. No cyanosis. Significant diffuse lower extremity edema with diffuse ecchymosis. Posterior tibial pulse 2+ bilateral Musculoskeletal: No significant long bone or joint deformity. Skin: No significant skin lesion or rash Neurologic: Awake and relatively alert Intubated-nonverbal She nods her head slightly for yes and no responses Follow simple commands all extremities Pupils mid range, reactive to light Mild conjugate extraocular movements Unable to adequately test facial sensory motor, tongue, palate, sternocleidomastoid testing due to altered mental status and intubation She seems painful with movement of the lower extremities Extremity sensation difficult to accurately assess due to limited responses. She is able to perform biceps contraction approximately 2/5 right, 1/5 left. Absent triceps. She moves her right greater than left fingers to a mild extent. Does not grasp to command on the right or left. She is able to mildly internal and externally rotate the left lower extremity. Mild movement of the toes as well as gastrocsoleus contraction bilaterally to command. Dany's response absent bilaterally No ankle clonus Plantar responses are neutral Laboratory Laboratory Tests Test 12/16/16 05:20 12/16/16 07:40 White Blood Count 12.5 14.7 Red Blood Count 2.16 2.38 Hemoglobin 6.5 7.2 Hematocrit 19.8 21.8 Mean Corpuscular Volume 92.0 91.8 Mean Corpuscular Hemoglobin 30.3 30.1 Mean Corpuscular Hemoglobin Concent 33.0 32.8 Red Cell Distribution Width 16.3 17.1 Platelet Count 48 58 Mean Platelet Volume 10.0 10.4 Neutrophils (%) (Auto) 91.6 Lymphocytes (%) (Auto) 2.4 Monocytes (%) (Auto) 5.9 Eosinophils (%) (Auto) 0.0 Basophils (%) (Auto) 0.1 Neutrophils # (Auto) 11.5 Lymphocytes # (Auto) 0.3 Monocytes # (Auto) 0.7 Eosinophils # (Auto) 0.0 Basophils # (Auto) 0.0 CBC Comment AUTO DIFF Differential Comment AUTO DIFF CONFIRMED Platelet Estimate LOW Platelet Morphology Comment NORMAL Polychromasia 2.0 Basophilic Stippling FAINT Acanthocytes OCC Prothrombin Time 12.7 Prothromb Time International Ratio 1.1 Activated Partial Thromboplast Time 29.3 Fibrinogen 218 Blood Urea Nitrogen 66 66 Creatinine 3.47 3.48 Random Glucose 212 203 Total Protein 4.8 5.2 Albumin 2.1 2.3 Calcium Level 8.0 8.2 Alkaline Phosphatase 224 244 Aspartate Amino Transf (AST/SGOT) 40 40 Alanine Aminotransferase (ALT/SGPT) 46 48 Total Bilirubin 1.5 1.7 Sodium Level 139 140 Potassium Level 2.8 2.7 Chloride Level 98 99 Carbon Dioxide Level 25.9 26.3 Anion Gap 15 15 Estimat Glomerular Filtration Rate 13 13 Lipase 2051 Date/Time Source Procedure Growth Status 12/09/16 15:13 Blood Peripheral Aerobic Blood Culture - Final NO GROWTH IN 5 DAYS Complete 12/09/16 15:13 Blood Peripheral Anaerobic Blood Culture - Final NO GROWTH IN 5 DAYS Complete 12/03/16 14:55 Fluid Bile Fluid Gram Stain - Final Complete 12/03/16 14:55 Body Fluid Culture - Final Enterococcus Faecalis Complete 12/12/16 17:20 Sputum Endotracheal Gram Stain - Final Complete 12/12/16 17:20 Sputum Culture - Final Stenotrophomonas Maltophilia Complete 12/09/16 18:00 Urine Catheterized Urine Urine Culture - Final NO GROWTH IN 48 HOURS. Complete Result Diagram: 12/16/16 0740 12/16/16 0740 Imaging 12/15/16 MRI brain and cervical spine images reviewed. Evidence of acute ischemia or infarction. There is evidence of prior C4-7 ACDF with instrumentation all of which appears intact. There is moderate diffuse cervical stenosis. However on SPACE imaging there is spinal fluid seen surrounding the cord at all cervical levels. No evidence of cervical signal intensity changes. Cholangiopancreatography MRI 12/15/16 Signed Impressions: Service Date/Time: Thursday, December 15, 2016 17:40 - CONCLUSION: 1. Multiple filling defects in the common bile duct down to the ampulla.. 2. Cholecystostomy catheter in place. 3. No dilation of the pancreatic duct. Nain Mejia MD Chest X-Ray 12/15/16 Signed Impressions: Service Date/Time: Thursday, December 15, 2016 04:03 - CONCLUSION: Slightly improved bibasilar consolidation. Fermin Rodriguez MD Cervical Spine MRI 12/15/16 Signed Impressions: Service Date/Time: Thursday, December 15, 2016 17:40 - CONCLUSION: 1. Status post anterior multilevel fusion at the C4-C7 level. 2. Hypertrophic ridging is noted C4-5, C5-6 and C6-7 levels with mass effect on the anterior thecal sac. There is slight flattening of the anterior cord at C4-5. 3. Disc osteophyte complex at C3-4 with mild flattening the anterior cord. 4. Narrowing of the neural foramina bilaterally at the C3-4 through C5-6 level and on the right at C2-3 and on the left at C6-7. Josef Luther MD Brain MRI 12/15/16 Signed Impressions: Service Date/Time: Thursday, December 15, 2016 17:40 - CONCLUSION: Negative exam with no evidence of hemorrhage, mass or infarction. Josef Luther MD Cholangiogram 12/14/16 Signed Impressions: Service Date/Time: Wednesday, December 14, 2016 14:03 - CONCLUSION: 1. Cholecystostomy tube in good position. Continued occlusion of the cystic duct. The gallbladder lumen was irrigated and an accordion device placed on the cholecystostomy tube. Nain Sharma Jr., MD Catheter Placement X-Ray 12/13/16 Signed Impressions: Service Date/Time: November 14:14 - CONCLUSION: Uncomplicated line placement as above. Nain Sharma Jr., MD Head CT 12/11/16 Signed Impressions: Service Date/Time: Sunday, December 11, 2016 17:09 - CONCLUSION: 1. Minimal chronic sinusitis in the sphenoid sinuses bilaterally. 2. Bilateral acute mastoiditis. 3. Otherwise negative. Anatomic detail is somewhat limited due to motion artifact, however. Jamel Johns MD Chest CT 12/11/16 0000 Signed Impressions: Service Date/Time: Sunday, December 11, 2016 17:15 - CONCLUSION: Small bibasilar consolidation and/or compressive collapse and bilateral pleural effusions. Kristen Deleon MD Abdomen/Pelvis CT 12/11/16 0000 Signed Impressions: Service Date/Time: Sunday, December 11, 2016 17:15 - CONCLUSION: 1. Cholecystostomy tube in place with decrease in the amount of hyperdensity within the lumen. 2. Persistent bilateral pleural effusions, stable. Persistent free fluid in the pelvis, slightly decreased. 3. Increase in the amount of induration of the lateral abdominal wall and pelvic subcutaneous tissues an increase swelling of the lateral musculature Nain Mejia MD Abdomen X-Ray 12/09/16 0000 Signed Impressions: Service Date/Time: Friday, December 09, 2016 12:19 - CONCLUSION: OG tube tip in the distal stomach. Fermin Wills MD Abdomen CT 12/08/16 0000 Signed Impressions: Service Date/Time: Thursday, December 08, 2016 17:52 - CONCLUSION: 1. Cholecystostomy tube in good position. Nain Sharma Jr., MD Percutaneous Cholangiogram 12/03/16 0000 Signed Impressions: Service Date/Time: Saturday, December 03, 2016 14:31 - CONCLUSION: Uncomplicated percutaneous cholecystostomy as above. Nain Sharma Jr., MD Liver Ultrasound 12/02/16 0000 Signed Impressions: Service Date/Time: Friday, December 02, 2016 19:12 - CONCLUSION: 1. Cholelithiasis with wall thickening and trace pericholecystic fluid. 2. No evidence of biliary duct distention. 3. No other significant abnormality. Jak Hughes MD Assessment and Plan Assessment and Plan Impression: 1. Quadriplegia in patient with recent severe sepsis, acute renal failure, hypotension requiring pressors, respiratory failure requiring long-term intubation. No evidence of significant cervical cord compression or signal intensity changes on MRI. No definite evidence of acute ischemia or infarct on MRI of cervical spine and brain. 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 Consider neurology evaluation. Continued correction of electrolyte imbalance, HD for renal failure. Potassium 2.7 today. PT and OT evaluations Sherman Jean MD Dec 16, 2016 14:16
--- NOTE | 2016-12-16 15:12 | HHI.GIFU ---
Subjective Remarks GI reconsulted for evaluation of recent MRCP on 12/15/16, which showed multiple filling defects of the CBD. Objective Vitals I&O Vital Signs Date Time Temp Pulse Resp B/P (MAP) Pulse Ox O2 Delivery O2 Flow Rate FiO2 12/16/16 14:00 92 12/16/16 13:54 98.4 94 20 137/66 98 12/16/16 13:33 98.1 84 16 137/66 98 12/16/16 12:00 94 12/16/16 12:00 99.0 94 21 170/78 (108) 96 12/16/16 12:00 35 12/16/16 11:00 81 18 154/68 (96) 97 12/16/16 10:00 79 12/16/16 10:00 79 17 140/73 (95) 98 12/16/16 10:00 35 12/16/16 09:00 75 18 131/66 (87) 97 12/16/16 08:00 35 12/16/16 08:00 98.5 73 15 150/66 (94) 98 12/16/16 07:25 98 35 12/16/16 06:00 80 12/16/16 04:07 99 35 12/16/16 04:00 35 12/16/16 04:00 92 12/16/16 04:00 97.6 92 21 133/68 (89) 97 12/16/16 02:00 84 12/16/16 01:52 98 35 12/16/16 00:00 99.4 12/16/16 00:00 99.4 92 21 163/79 (107) 97 12/16/16 00:00 35 12/16/16 00:00 92 12/15/16 22:05 100 35 12/15/16 22:00 75 12/15/16 20:42 98 35 12/15/16 20:00 35 12/15/16 20:00 99.5 79 19 157/72 (100) 98 12/15/16 20:00 79 12/15/16 18:44 100 100 12/15/16 18:30 35 12/15/16 16:00 35 12/15/16 16:00 98 12/15/16 16:00 98.6 98 15 155/81 (105) 98 12/15/16 16:00 99 35 12/15/16 15:00 86 18 151/68 (95) 98 I/O 12/15/16 12/15/16 12/15/16 12/16/16 12/16/16 12/16/16 07:00 15:00 23:00 07:00 15:00 23:00 Intake Total 465 ml 250 ml 1140 ml 50 ml 200 ml Output Total 380 ml 3000 ml 230 ml 400 ml Balance 85 ml -2750 ml 910 ml -350 ml 200 ml Intake IV Total 50 ml 250 ml 365 ml 50 ml 200 ml Tube Feeding 415 ml 495 ml Tube Irrigant 160 ml Other 120 ml Output Urine Total 350 ml 200 ml 350 ml Drainage Total 30 ml 30 ml 50 ml Hemodialysis 3000 ml # Bowel Movements 2 Laboratory Laboratory Tests Test 12/16/16 05:20 12/16/16 07:40 White Blood Count 12.5 14.7 Red Blood Count 2.16 2.38 Hemoglobin 6.5 7.2 Hematocrit 19.8 21.8 Mean Corpuscular Volume 92.0 91.8 Mean Corpuscular Hemoglobin 30.3 30.1 Mean Corpuscular Hemoglobin Concent 33.0 32.8 Red Cell Distribution Width 16.3 17.1 Platelet Count 48 58 Mean Platelet Volume 10.0 10.4 Neutrophils (%) (Auto) 91.6 Lymphocytes (%) (Auto) 2.4 Monocytes (%) (Auto) 5.9 Eosinophils (%) (Auto) 0.0 Basophils (%) (Auto) 0.1 Neutrophils # (Auto) 11.5 Lymphocytes # (Auto) 0.3 Monocytes # (Auto) 0.7 Eosinophils # (Auto) 0.0 Basophils # (Auto) 0.0 CBC Comment AUTO DIFF Differential Comment AUTO DIFF CONFIRMED Platelet Estimate LOW Platelet Morphology Comment NORMAL Polychromasia 2.0 Basophilic Stippling FAINT Acanthocytes OCC Prothrombin Time 12.7 Prothromb Time International Ratio 1.1 Activated Partial Thromboplast Time 29.3 Fibrinogen 218 Blood Urea Nitrogen 66 66 Creatinine 3.47 3.48 Random Glucose 212 203 Total Protein 4.8 5.2 Albumin 2.1 2.3 Calcium Level 8.0 8.2 Alkaline Phosphatase 224 244 Aspartate Amino Transf (AST/SGOT) 40 40 Alanine Aminotransferase (ALT/SGPT) 46 48 Total Bilirubin 1.5 1.7 Sodium Level 139 140 Potassium Level 2.8 2.7 Chloride Level 98 99 Carbon Dioxide Level 25.9 26.3 Anion Gap 15 15 Estimat Glomerular Filtration Rate 13 13 Lipase 2051 Date/Time Source Procedure Growth Status 12/09/16 15:13 Blood Peripheral Aerobic Blood Culture - Final NO GROWTH IN 5 DAYS Complete 12/09/16 15:13 Blood Peripheral Anaerobic Blood Culture - Final NO GROWTH IN 5 DAYS Complete 12/03/16 14:55 Fluid Bile Fluid Gram Stain - Final Complete 12/03/16 14:55 Body Fluid Culture - Final Enterococcus Faecalis Complete 12/12/16 17:20 Sputum Endotracheal Gram Stain - Final Complete 12/12/16 17:20 Sputum Culture - Final Stenotrophomonas Maltophilia Complete 12/09/16 18:00 Urine Catheterized Urine Urine Culture - Final NO GROWTH IN 48 HOURS. Complete Imaging Last Impressions Cholangiopancreatography MRI 12/15/16 0000 Signed Impressions: Service Date/Time: Thursday, December 15, 2016 17:40 - CONCLUSION: 1. Multiple filling defects in the common bile duct down to the ampulla.. 2. Cholecystostomy catheter in place. 3. No dilation of the pancreatic duct. Nain Mejia MD Chest X-Ray 12/15/16 0000 Signed Impressions: Service Date/Time: Thursday, December 15, 2016 04:03 - CONCLUSION: Slightly improved bibasilar consolidation. Fermin Rodriguez MD Cervical Spine MRI 12/15/16 0000 Signed Impressions: Service Date/Time: Thursday, December 15, 2016 17:40 - CONCLUSION: 1. Status post anterior multilevel fusion at the C4-C7 level. 2. Hypertrophic ridging is noted C4-5, C5-6 and C6-7 levels with mass effect on the anterior thecal sac. There is slight flattening of the anterior cord at C4-5. 3. Disc osteophyte complex at C3-4 with mild flattening the anterior cord. 4. Narrowing of the neural foramina bilaterally at the C3-4 through C5-6 level and on the right at C2-3 and on the left at C6-7. Josef Luther MD Brain MRI 12/15/16 0000 Signed Impressions: Service Date/Time: Thursday, December 15, 2016 17:40 - CONCLUSION: Negative exam with no evidence of hemorrhage, mass or infarction. Josef Luther MD Cholangiogram 12/14/16 0000 Signed Impressions: Service Date/Time: Wednesday, December 14, 2016 14:03 - CONCLUSION: 1. Cholecystostomy tube in good position. Continued occlusion of the cystic duct. The gallbladder lumen was irrigated and an accordion device placed on the cholecystostomy tube. Nain Sharma Jr., MD Catheter Placement X-Ray 12/13/16 0000 Signed Impressions: Service Date/Time: November 14:14 - CONCLUSION: Uncomplicated line placement as above. Nain Sharma Jr., MD Head CT 12/11/16 0000 Signed Impressions: Service Date/Time: Sunday, December 11, 2016 17:09 - CONCLUSION: 1. Minimal chronic sinusitis in the sphenoid sinuses bilaterally. 2. Bilateral acute mastoiditis. 3. Otherwise negative. Anatomic detail is somewhat limited due to motion artifact, however. Jamel Johns MD Chest CT 12/11/16 0000 Signed Impressions: Service Date/Time: Sunday, December 11, 2016 17:15 - CONCLUSION: Small bibasilar consolidation and/or compressive collapse and bilateral pleural effusions. Kristen Deleon MD Abdomen/Pelvis CT 12/11/16 0000 Signed Impressions: Service Date/Time: Sunday, December 11, 2016 17:15 - CONCLUSION: 1. Cholecystostomy tube in place with decrease in the amount of hyperdensity within the lumen. 2. Persistent bilateral pleural effusions, stable. Persistent free fluid in the pelvis, slightly decreased. 3. Increase in the amount of induration of the lateral abdominal wall and pelvic subcutaneous tissues an increase swelling of the lateral musculature Nain Mejia MD Abdomen X-Ray 12/09/16 0000 Signed Impressions: Service Date/Time: Friday, December 09, 2016 12:19 - CONCLUSION: OG tube tip in the distal stomach. Fermin Wills MD Abdomen CT 12/08/16 0000 Signed Impressions: Service Date/Time: Thursday, December 08, 2016 17:52 - CONCLUSION: 1. Cholecystostomy tube in good position. Nain Sharma Jr., MD Percutaneous Cholangiogram 12/03/16 0000 Signed Impressions: Service Date/Time: Saturday, December 03, 2016 14:31 - CONCLUSION: Uncomplicated percutaneous cholecystostomy as above. Nain Sharma Jr., MD Liver Ultrasound 12/02/16 0000 Signed Impressions: Service Date/Time: Friday, December 02, 2016 19:12 - CONCLUSION: 1. Cholelithiasis with wall thickening and trace pericholecystic fluid. 2. No evidence of biliary duct distention. 3. No other significant abnormality. Jak Hughes MD Physical Exam HEENT: Normocephalic CHEST: Resp even/unlabored. CTA CARDIAC: RRR ABDOMEN: Soft, nondistended, cholecystostomy tube patent and draining dark brown fluid, bowel sounds are hypoactive EXTREMITIES: 2-3+ edema at bilateral upper and lower extremities SKIN: No rashes or jaundice. PRODUCT SAFETY ASSOCIATE: Lethargic. Assessment and Plan Plan ASSESSMENT: - Cholecystitis. CT scan abdomen and pelvis without iv contrast (12/02/16)---> No evidence of acute abdominal or pelvic process. No masses are identified. Cholelithiasis. Left lower lobe atelectasis versus pneumonia, a large hiatal hernia is present, diverticulosis without evidence of diverticulitis. Liver US (12/02/16)---> Cholelithiasis with wall thickening and trace pericholecystic fluid, no evidence of biliary duct distention, no other significant abnormality. Bacteremia with multiple organisms. GS following, s/p cholecystomy tube 12/03. S/P Cholangiogram- tube in good position, continued occlusion of the cystic duct. The gallbladder lumen was irrigated and accordion device was placed. Cholecystomy tube patent. Zosyn, Levaquin, Tolerating TF. GI signed off on 12/14/16. Reconsulted today for evaluation of findings found on MRCP. MRCP (12/15/16)-- 1. Multiple filling defects in the common bile duct down to the ampulla 2. Cholecystostomy catheter in place. 3. No dilation of the pancreatic duct T. BIli 1.7, AST 40, ALT 48, Alk Phosph 244. - FEN/Malnutrition. Nurse was unable to place OGT (would not advance). Attempt at NGT/[place] was unsuccessful. S/P EGD with OGT placement (12/07/16)----> Hiatal hernia. Successful OG tube placement. Tolerating TF. [place] Program Coordinator recommends Nepro GR 45cc/hr. - Thrombocytopenia, Coagulopathy. S/P 2 units of FFP. HIT negative - Elevated LFTs. No evidence of biliary duct obstruction. No evidence of pancreatitis or dilated ducts on imaging. Unclear if this is all cholecystis, or passed stone, or possible ETOH and cholecystitis. S/P Cholecystomy tube. Hepatitis profile negative, HERBER negative, AMA <20.0, ASMA neg, Iron saturation 2.7%, Ferritin 306, ALpha 1 antitrypsin 209, Ceruloplasmin 32, AFP. Slowly trending down. - Severe sepsis with multisystem failure. BCx from 12/02/16 grew enterobacter species, klebsiella pneumoniae, escherichia coli, and GNR in the anaerobic bottle. Bile cx Group D Enterococcus. Sputum Cx E. Coli. Rpt urine, sputum, blood culture pending. Zosyn, Levaquin. WBC 17.0 - Anemia. 12/16--HH 6.5/19.8, s/p transfusion, HH 7.2/21.8. No active bleeding. - Abdominal pain, nausea, decreased appetite. Likely related to cholecystis. Currently sedated. - ARF with severe electrolyte abnormalities. S/P CVVHD, now transitioned to HD. Per nephrology - Resp. Failure/PNA. CXR LLL atelectasis vs. pna, resolving right basilar atelectasis. Cx E. Coli. Still lethargic, but is following commands today. - Chronic back pain r/t scoliosis. Uses medical marijuana via vaping and takes 4 shots of scotch per day to help with her pain control. Last had these 2 weeks ago. - CAD, Hx HTN, Hyperlipidemia per attending. PLAN: - ERCP on Saturday - NPO at [facility], [place] - Monitor HH, transfuse as necessary - Monitor labs - Abx per ID recommendations - S/P Cholecystomy tube placement by IR (12/03), s/p cholangiogram (12/14), cystic duct occluded. Drain patent. - Supportive care - Further recommendations to follow based on results of above. Patient seen and examined by Dr. Andre and myself and this note is written on his behalf Natalia Chicas Dec 16, 2016 15:12
[2016-12-16] MEDS: oxyCODONE HCL ORAL CONC 5 MG/0.25 ML SYRINGE PO PRN (20:59)
[2016-12-16 21:19] LABS: HEMATOCRIT 26.5 % (35.0-46.0); HEMOGLOBIN 9.1 GM/DL (11.6-15.3)
[2016-12-17] VITALS (25 sets, daily range): BP systolic 139–172; BP diastolic 70–87; PULSE 75–179; RESP 14–22; TEMP 97.9–98.5; O2SAT 95–99
[2016-12-17] MEDS: PIPERACIL-TAZO 2.25 GM PREMIX 50 ML IV SCH ×5 (01:13→23:00)
[2016-12-17] MEDS: DILTIAZEM HCL 60 MG TAB PO SCH ×4 (01:13→18:00)
[2016-12-17] MEDS: INSULIN NovoLIN REGULAR SUPPLEMENTAL SCALE SQ SCH ×4 (02:00→20:00)
[2016-12-17] MEDS: CHLORHEXIDINE GLUCONATE 2 % 1 PACK (2 CLOTHS) TOP SCH (04:00)
[2016-12-17] MEDS: oxyCODONE HCL ORAL CONC 5 MG/0.25 ML SYRINGE PO PRN (04:42)
[2016-12-17 05:51] LABS: AUTOMATED NEUTROPHIL # 14.6 TH/MM3 (1.8-7.7); BASOPHIL % 0.2 % (0.0-2.0); HEMOGLOBIN 9.4 GM/DL (11.6-15.3); LYMPH % 2.4 % (9.0-44.0); LYMPHOCYTE # 0.4 TH/MM3 (1.0-4.8); MEAN CORPUSCULAR HEMOGLOBIN 29.9 PG (27.0-34.0); MEAN CORPUSCULAR HGB CONC 33.6 % (32.0-36.0); MEAN PLATELET VOLUME 9.8 FL (7.0-11.0); MONO % 3.5 % (0.0-8.0); MONOCYTE # 0.5 TH/MM3 (0-0.9); NEUT % 93.9 % (16.0-70.0); PLATELET COUNT 59 TH/MM3 (150-450); RED BLOOD COUNT 3.15 MIL/MM3 (4.00-5.30); RED CELL DISTRIBUTION WIDTH 17.6 % (11.6-17.2); WHITE BLOOD COUNT 15.5 TH/MM3 (4.0-11.0)
[2016-12-17 06:02] LABS: INTERNATIONAL NORMALIZED RATIO 1.1 RATIO; PROTHROMBIN TIME - PATIENT 11.8 SEC (9.8-11.6)
[2016-12-17 06:11] LABS: ALKALINE PHOSPHATASE 252 U/L (45-117); ALT (GPT) 44 U/L (10-53); AST (GOT) 46 U/L (15-37); BLOOD UREA NITROGEN 78 MG/DL (7-18); CALCIUM 7.8 MG/DL (8.5-10.1); CHLORIDE 101 MEQ/L (98-107); CREATININE 3.94 MG/DL (0.50-1.00); GLOMERULAR FILTRATION RATE 11 ML/MIN (>89); GLUCOSE,RANDOM 162 MG/DL (74-106); SODIUM (NA) 139 MEQ/L (136-145); TOTAL BILIRUBIN ADULT 2.2 MG/DL (0.2-1.0); TOTAL PROTEIN 5.4 GM/DL (6.4-8.2)
[2016-12-17] MEDS: CHLORHEXIDINE 0.12% (ORAL KIT) 15 ML CUP MT SCH ×2 (08:00→20:00)
[2016-12-17 08:58] LABS: ACANTHOCYTES OCC (NORMAL)
[2016-12-17] MEDS: SODIUM CHLORIDE 0.9% FLUSH 10 ML FLUSH IV FLUSH SCH ×3 (09:00→21:00)
[2016-12-17] MEDS: HYDROCORTISONE SOD SUCCINATE 100 MG VIAL IV PUSH SCH ×2 (09:00→21:00)
[2016-12-17] MEDS: DOCUSATE SODIUM 50 MG/SENNA 8.6 MG TAB PO SCH ×2 (09:00→21:00)
--- NOTE | 2016-12-17 09:17 | HHI.CCPN ---
Subjective Remarks/Hospital Course This is a 71-year-old female presents to the ED via EMS for evaluation of fever , shortness breath, vomiting, diarrhea, abdominal pain She reports that she's been short of breath for the past 2 weeks, but has progressed in the past 2 days. Patient has been seeing a nuclear logging engineer for her shortness of breath, is not on home oxygen. The patient reported she has a history of smoking. She is also complaining of abdominal pain that started 2 days ago with vomiting and diarrhea. Patient has severe tenderness to mild palpation. She has history of [place]. She received 500 mL normal saline IV bolus, and Zofran 4 mg IV. Critical care medicine was consulted. Subjective: 12/03: Tmax 100.9. Last evening the patient was noted to have significant respiratory decompensation with requirement for emergent intubation. The patient subsequently became hemodynamically unstable requiring vasopressor support. Patient is lightly sedated, and continues to have abdominal pain, and hypoactive bowel sounds, GI has been consulted. HIDA scan previously scheduled for this morning, after discussion with Dr Goodrich , plan for cholecystostomy tube placement by IR. Ultrasound liver showed no biliary duct distention but notable thickened gallbladder wall. 12/04: Tmax 100.4. Patient continues with severe metabolic acidosis, sodium bicarbonate infusion increased to 150 cc/hour yesterday afternoon. Antibiotics were expanded yesterday with addition of Micafungin and Diflucan. Blood cultures resulted with Enterobacter, Klebsiella pneumoniae and Escherichia coli. ID consulted recommendations appreciated. Patient is status post placement of percutaneous cholecystostomy tube . Patient now icteric, but LFTs are trending down. Records obtained from primary care physician with cardiology reports from earlier in the year, patient with noted pulmonary hypertension and NYHA class III. In-hospital echo pending. Patient continues on 3 pressors to maintain blood pressure. 12/05: Patient has been weaned off of vasopressor continues on to agents Gurinder- Synephrine, norepinephrine at low doses. Patient noted to still be thrombocytopenic platelet count decreased today HIT panel pending. INR remains elevated no active signs of bleeding liver function enzymes remain elevated. No urine output over the last 12 hours nephrology following discussion with for possible hemodialysis, will await nephrology recommendations. Sodium bicarbonate infusion discontinued. Patient remains alert GCS 11 T. 12/06: Afebrile. The patient continues on CRRT initiated last night, tolerating it well patient continues only on phenylephrine infusion to maintain MAP. The patient received 2 units of FFP per hematology/oncology recommendations. Plan for evaluation and placement for NG tube placement multifocal button generator. 12/07: Afebrile. Vasopressors discontinued at 4 AM, CRRT completed, patient will be transitioned to IHD 2 times a week. Patient was noted to be severely thrombocytopenic platelet count 32 ,plan for transfusions of platelets, fibrinogen level decreasing. Bile specimen noted to result Enterococcus faecalis, contacted Dr. Portillo general surgery updated him discussion regarding elective versus semielective laparoscopic cholecystectomy ,informed that no surgical intervention indicated at this time. Cholecystostomy tube continues to drain. 12/08: Afebrile. The patient has been transitioned to IHD 2 times a week. 3 L removal of fluid today. The patient remains hemodynamically stable off of all vasopressors greater than 24 hours at this time. A chin continues to have persistent leukocytosis with elevation in WBC count and downward trend up fibrinogen level . Cholecystostomy tube low output, CT scan abdomen pending. General surgery reconsulted to review surgical options for patient. 12/09 Patient is sedated with Fentanyl and intubated. s/p HD yesterday with removal 3L. NPO for possible OR today. 12/10 No events overnight. Sedated with Fentanyl and intubated. Afebrile. 12/11 Patient remains intubated and sedated with Fentanyl. Tolerated CPAP trials for 4 hrs yesterday. For HD today. Afebrile however her WBC increased 37 from 33. Moves spontaneously but does not follow commands. 12/12 Patient went into afib with RVR placed on Cardizem drip now at 5mg/hr on CPAP with PS 10, PEEP:5 and FIO2 35%. Afebrile. WBC is trending down. 12/13 No events overnight. For HD today. s/p transfusion 1unit PRBC yesterday. Afebrile. Seems more alert today. 12/14 Patient is sedated and intubated. s/p HD yesterday with removal 2L. 12/15 Off pressors. Still with anasarca, HD today with removal of 3 L. CPAP 11/22 all day with RSBI in 30s. Sedation on hold all day and she is now tracking and lifts head off pillow to command. Very minimal movement of fingers bilaterally and strength 2/5 L leg, 1/5 R leg Subjective: 12/16 Remains off vasopressors. Tolerated CPAP 11/22 yesterday. Continuing daily pressure support ventilation. MRCP resulted with multiple filling defects of common bile duct. Discussed with Dr. Portillo and will reconsult gastroenterology regarding ERCP. She is more alert off sedation, quadriparetic. Multiple risk factors for critical illness polyneuropathy. Prior anterior cervical fusion and osteophyte with flattening of cord C3/C4 hypertrophic ridge with anterior cord flattening at C4/C5 so will obtain neurosurgical opinion. She is more alert today and has remained off continuous sedation for 24 hours. MRI brain negative. Overall condition discussed with her . 12/17: Tolerating CPAP, plan is for ERCP today btw 1-2. Remains quadriparetic, but follows commands x4. Neurosurgery consult appreciated -no evidence of cord compression or spinal cord ischemia. 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 I have requested neurology consult Objective Vital Signs Date Time Temp Pulse Resp B/P (MAP) Pulse Ox O2 Delivery O2 Flow Rate FiO2 12/17/16 08:00 97.9 75 17 158/78 (104) 97 12/17/16 07:21 35 Intake and Output 12/17/16 12/17/16 12/18/16 08:00 16:00 00:00 Intake Total 384 ml Output Total 580 ml Balance -196 ml Result Diagram: 12/17/16 0420 12/17/16 0420 Imaging Last Impressions Catheter Placement X-Ray 12/13/16 0000 Signed Impressions: Service Date/Time: November 14:14 - CONCLUSION: Uncomplicated line placement as above. Nain Sharma Jr., MD Head CT 12/11/16 0000 Signed Impressions: Service Date/Time: Sunday, December 11, 2016 17:09 - CONCLUSION: 1. Minimal chronic sinusitis in the sphenoid sinuses bilaterally. 2. Bilateral acute mastoiditis. 3. Otherwise negative. Anatomic detail is somewhat limited due to motion artifact, however. Jamel Johns MD Chest CT 12/11/16 0000 Signed Impressions: Service Date/Time: Sunday, December 11, 2016 17:15 - CONCLUSION: Small bibasilar consolidation and/or compressive collapse and bilateral pleural effusions. Kristen Deleon MD Abdomen/Pelvis CT 12/11/16 0000 Signed Impressions: Service Date/Time: Sunday, December 11, 2016 17:15 - CONCLUSION: 1. Cholecystostomy tube in place with decrease in the amount of hyperdensity within the lumen. 2. Persistent bilateral pleural effusions, stable. Persistent free fluid in the pelvis, slightly decreased. 3. Increase in the amount of induration of the lateral abdominal wall and pelvic subcutaneous tissues an increase swelling of the lateral musculature Nain Mejia MD Chest X-Ray 12/09/16 0600 Signed Impressions: Service Date/Time: Friday, December 09, 2016 04:06 - CONCLUSION: 1. Interval placement of nasogastric tube. 2. Bibasal opacities remain. Josef Luther MD Abdomen X-Ray 12/09/16 0000 Signed Impressions: Service Date/Time: Friday, December 09, 2016 12:19 - CONCLUSION: OG tube tip in the distal stomach. Fermin Wills MD Abdomen CT 12/08/16 0000 Signed Impressions: Service Date/Time: Thursday, December 08, 2016 17:52 - CONCLUSION: 1. Cholecystostomy tube in good position. Nain Sharma Jr., MD Percutaneous Cholangiogram 12/03/16 0000 Signed Impressions: Service Date/Time: Saturday, December 03, 2016 14:31 - CONCLUSION: Uncomplicated percutaneous cholecystostomy as above. Nain Sharma Jr., MD Liver Ultrasound 12/02/16 0000 Signed Impressions: Service Date/Time: Friday, December 02, 2016 19:12 - CONCLUSION: 1. Cholelithiasis with wall thickening and trace pericholecystic fluid. 2. No evidence of biliary duct distention. 3. No other significant abnormality. Jak Hughes MD Objective Remarks GENERAL: Chronically Critically ill appearing female who is off continuous sedation. SKIN: Warm and dry. HEAD: Atraumatic. Normocephalic. EYES: Pupils equal and round, pinpoint and sluggishly reactive bilaterally. No injection or drainage. Extraocular movements intact ENT: No nasal bleeding or discharge. Mucous membranes pink and moist. Orotracheally intubated. NECK: Trachea midline. No JVD. CARDIOVASCULAR: Normal rate, regular rhythm. No mrg. RESPIRATORY: No accessory muscle use. Clear to auscultation. Breath sounds equal bilaterally. GASTROINTESTINAL: Abdomen soft,nondistended, no guarding. Cholecystostomy tube draining dark brown fluid. Tolerating tube feeds. MUSCULOSKELETAL: Extremities without clubbing, cyanosis. 2-3+ edema of all extremities. VASC: RIJ VAscath in place with no drainage. NEUROLOGICAL: Eyes open, tracks. Moves fingers bilaterally to command. Left leg internal and external rotation 2/6, hip flexors/hamstrings 1/6. Ankle dorsiflexion 1/6, wiggles toes. Right leg 1 out of 6 hip flexors/and hamstrings , wiggles toes + Foot drop. Tolerating CPAP Procedures 12/02-abdominal ultrasound 12/03- percutaneous cholecystostomy tube placement 12/05-patient of CRRT, completion 12/07 12/08-initiation of IHD Date of Insertion: Dec 02, 2016 Line: Central Venous Catheter Side: Left Location: Femoral A/P Problem List: (1) Septic shock ICD Code: A41.9 - Sepsis, unspecified organism; R65.21 - Severe sepsis with septic shock Status: Resolved Assessment and Plan ASSESSMENT Functional quadriparesis Diverticulitis Cholelithiasis with cholecystitis Transaminitis Hiatal hernia Nausea Hyperlipidemia Hypertension History of [place] Coronary artery disease-S/P angioplasty 2 History of systolic CHF Acute hypoxemic respiratory failure Probable community-acquired pneumonia Hypokalemia Alcohol use disorder Elevated creatinine Pancytopenia Transaminitis Acute renal failure Multisystem organ failure secondary to septic shock Acute decompensated systolic heart failure Coagulopathy Bandemia Persistent leukocytosis Critical illness polyneuropathy PLAN Neurologic: Quadriparesis, Probable Critical illness polyneuropathy. Scoliosis h/o anterior cervical discectomy and fusion. Acute encephalopathy, secondary to sepsis, improved. CT brain: Minimal chronic sinusitis in the sphenoid sinuses bilaterally. Bilateral acute mastoiditis. Otherwise negative EEG 12/13 : Suboptimal study due to a lot of artifact. Study consistent with encephalopathic process. No epileptic activity. More awake and alert following commands, with evidence of quadriparesis MRI brain 12/15 no acute hemorrhage/mass infarct. MRI Cspine report - flattening of anterior cord C3-C5. Dr Jean states no significant cord impingement or signal changes and symptoms more likely related to critical illness polyneuropathy. She is generally very weak and high likelihood of critical illness polyneuropathy given prior septic shock, vasopressor requirement, steroids, etc. s/p folate and MVI, thiamine. Respiratory: Acute respiratory failure Daily PSV. Will not extubate today pending plan for ERCP by Gastroenterology. Currently is tolerating C Pap 5 over 5. She is weak which may limit extubation potential, but I would favor trial of extubation before decision regarding trach. says he does not think she would want trach but would like to discuss with her if possible. Discussed that it is possible that she will not be capacitated for medical decision-making when she is extubated and he expresses understanding. 12/02-intubation 7.[address] chest: Small bibasilar consolidation Cardiovascular: On PO Cardizem 60mg Q6-Monitor HR and BP keep MAP>65mmHg Taper steroids- Decreased HC 25 q12, stop in 3 days Initial troponin 0.07->0.11->0.49. Possibly secondary to acute Kidney injury, and low-flow cardiac output state 12/04 echo results-EF 50% Patient's being seen regularly by high school coordinator in [place] Shanda MD Echo 10/03/15 per cardiology medical records([place])-normal LV function,EF 56%, mild septal LVH, mild TR, mild PAH Patient's home meds include ASA 81mg, Metoprolol 50 mg ER (recently discontinued secondary to hypotension by high school coordinator 3 weeks ago) will not restart secondary to hemodynamic instability, Rosvustatin at this time will not continue secondary to elevated LFT's continue to trend. NYHA classification III-per previous records Renal CKD stage III prior to admission, now on hemodialysis CRRT initiated 12/05 CRRT discontinued 12/07 HD inititated 12/08 Now on IHD per nephrology with last treatment 12/15 . Nephrology following-Dr. Carlos, FEN/GI: Cholelithiasis, cholecystitis, cholangitis CBD obstruction Tube feeds with-Nepro @45ml/hr per nutrition recs. Holding for ERCP today CT abd/pelvis: Cholecystostomy tube in place with decrease in the amount of hyperdensity within the lumen. Persistent bilateral pleural effusions, stable. Persistent free fluid in the pelvis, slightly decreased. Increase in the amount of induration of the lateral abdominal wall and pelvic subcutaneous tissues an increase swelling of the lateral musculature 12/02 CT abdomen pelvis-diverticulosis without diverticulitis, large hiatal hernia, cholelithiasis, no acute process ultrasound abdomen-no biliary duct dilatation, cholelithiasis with cholecystitis trace pericholecystic fluid 12/03- percutaneous cholecystostomy drain placement percutaneous cholecystostomy draining (Bile- Enterococcus faecalis)- monitor drainage 12/[address] Pathak bile fluid-Enterococcus faecalis-no surgical intervention at this time, plan for tentative semi-elective versus elective cholecystectomy in the future 12/08 general surgery reconsulted to review surgical options-vasopressor pressor support is not required, patient remains with elevated leukocytosis, will follow up recommendations GI signed off 12/14. Discussed with Dr Portillo 12/15 who recommends further evaluation for CBD obstruction. Obtained MRCP. MRCP with multiple filling defects of common bile duct. Gastroenterology- ERCP today. Recheck lipase today. ID: ID is following-Dr. Ramos, abx per ID (Zosyn 12/07 #11, Levaquin 12/07 #11 ) 12/09 Sputum cx: S. Maltophilia, Mold species. Follow up on sputum cx from 12/12 -S. Maltophilia 12/09 Pancultured- BC, Urine-NGTD 12/03 blood cultures-Enterobacter, Klebsiella pneumoniae, Escherichia coli 12/03 Legionella, influenza , pneumococcal antigen- negative 12/03 sputum culture-E coli 12/03: Bile fluid-Enterococcus faecalis HEME Pancytopenia secondary to sepsis. Hematology oncology following 12/05 HIT panel-negative. 12/06 2 units of FFP per hematology recommendations 12/07 transfuse 2 units of platelets 12/08-fibrinogen level Downward trend 392->213-> 165- transfuse 1 unit of cryoprecipitate Monitor CBC, s/p transfusion 1unit PRBC 12/12 Transfusion 1 unit PRBC 12/16 per hematology. Endocrine: Glucose monitoring per ICU protocol -SSI Steroid taper off as per above MSK: PT/OT following Prophylaxis: GI Prophylaxis Famotidine DVT Prophylaxis -- SCDs Heparin 5000 SQ BID (on Hold) in the setting of thrombocytopenia Lines: Central line left IJ placed 12/02 #14. Central access is not required. Vasc access obtained ultrasound guided PIV. D/c CVL. Right IJ vascath placed 12/13 by IR.#3. Palliative care is following. ALT CODE. Extensive discussion with . He shares she is weak and debilitated at baseline due to scoliosis. thinks she might not want trach. He would like to discuss this with her if possible and I would advocate trial of extubation based on her CPAP performance. However , she is extremely weak and this may ultimately result in reintubation, which understands. Also it is possible she will not be capacitated for MDM upon extubation, which also understands. At this point, will continue daily PSV to help mitigate respiratory muscle weakness.Tapering steroids off. Awaiting GI plan regarding ERCP. Discussed with Dr. Portillo. Level 3 June Christensen MD Dec 17, 2016 09:17
--- NOTE | 2016-12-17 12:27 | HHI.HCPN ---
Reason for visit a. To assist with evaluation and management of symptoms including: dyspnea, pain, and debility b. To assist medical decision maker(s) with: better understanding of current medical conditions; weighing benefits/burdens of medical treatment options; making medical treatment decisions. . Subjective/Interval History Patient seen and examined today for follow up regarding goals of care, chart reviewed, laboratory data reviewed. Patient remains intubated and mechanically ventilated, at bedside. Patient more awake and alert compared to previous exams, she tracks, follows commands, and is able to nod her head yes or no to simple questions. She is able to move all four extremities, however she has limited ROM in her LUE, neurosurgery evaluated patient over the weekend for quadriparesis, MRI of brain and cervical spine was negative, neurology consulted today to further evaluate patient. Family/friend interactions Bedside discussion with patient's , goals aggressive for the time being, he stated he feels she has been making progress and is still hopeful for recovery, he also verbalized an understanding of the severity of her illness and in the setting that she continues to show improvement she will still require skilled nursing care. Advance Directives Living Will: Copy in medical record Health Care Surrogate: Copy in medical record Durable Power of Billboard Erector: Copy in medical record Advance Directive Specifics Date completed: 01/04/15 . Health Care Surrogate(s): Marco Antonio Mark () Alternate HCS: Alvin Flores or Pippa Flores . Documented care wishes: Standard living will susie, patient documented she would not want life prolonging measures if she had a terminal condition or was in a persistent vegetative state. . Objective . Vital Signs Date Time Temp Pulse Resp B/P (MAP) Pulse Ox O2 Delivery O2 Flow Rate FiO2 12/17/16 12:02 99 35 12/17/16 08:00 97.9 75 17 158/78 (104) 97 12/17/16 07:21 35 12/17/16 07:21 99 35 12/17/16 07:00 75 18 139/70 (93) 97 12/17/16 06:00 93 12/17/16 04:07 98 35 12/17/16 04:00 98.0 91 22 167/81 (109) 96 12/17/16 04:00 35 12/17/16 04:00 95 12/17/16 02:00 89 12/17/16 01:40 99 35 12/17/16 00:00 98.5 89 18 151/70 (97) 98 12/17/16 00:00 35 12/17/16 00:00 89 12/16/16 23:00 18 12/16/16 22:46 99 35 12/16/16 22:00 75 12/16/16 20:20 99 35 12/16/16 20:00 98.6 82 26 151/72 (98) 98 12/16/16 20:00 35 12/16/16 20:00 82 12/16/16 18:00 83 12/16/16 16:13 98.4 85 20 165/76 98 12/16/16 16:00 98.4 82 18 165/76 (105) 97 12/16/16 16:00 35 12/16/16 16:00 82 12/16/16 15:01 98 35 12/16/16 15:00 89 19 163/79 (107) 97 12/16/16 14:00 92 12/16/16 14:00 92 20 139/71 (93) 97 12/16/16 13:54 98.4 94 20 137/66 98 12/16/16 13:33 98.1 84 16 137/66 98 12/16/16 13:00 88 18 137/66 (89) 97 Intake & Output 12/17/16 12/17/16 07:00 19:00 Intake Total 384 ml Output Total 580 ml Balance -196 ml Intake IV Total 125 ml Tube Feeding 259 ml Output Urine Total 450 ml Stool Total 100 ml Drainage Total 30 ml Physical Exam CONSTITUTIONAL/GENERAL: This is a critically ill patient, intubated and mechanically ventilated. TUBES/LINES/DRAINS: ETT, OGT, CVL LIJ, RIJ vas cath, cholecystomy tube, palacios catheter SKIN: No jaundice, rashes, or lesions. Ecchymoses on upper extremities. Skin temperature appropriate. Large wound on LUE, covered with bandage, weeping. Not diaphoretic. CARDIOVASCULAR: Regular rate and rhythm without murmurs, gallops, or rubs. Peripheral pulses symmetric. RESPIRATORY/CHEST: Symmetric, mechanically ventilated. Clear to auscultation. Breath sounds equal bilaterally. No wheezes, rales, or rhonchi. GASTROINTESTINAL: Abdomen soft, nontender, nondistended. Hypoactive bowel sounds present. GENITOURINARY: Without palpable bladder distension. Palacios catheter in place. MUSCULOSKELETAL: Extremities without clubbing, cyanosis. 2+ pitting edema BUE. No mottling or clubbing. NEUROLOGICAL: Opens eyes spontaneously and to verbal stimuli. Track. Follows commands. PSYCHIATRIC: Unable to assess secondary to clinical condition. Diagnostic Tests Laboratory Laboratory Tests Test 12/15/16 04:42 12/16/16 05:20 12/16/16 07:40 12/16/16 20:32 White Blood Count 18.5 TH/MM3 (4.0-11.0) 12.5 TH/MM3 (4.0-11.0) 14.7 TH/MM3 (4.0-11.0) Red Blood Count 2.76 MIL/MM3 (4.00-5.30) 2.16 MIL/MM3 (4.00-5.30) 2.38 MIL/MM3 (4.00-5.30) Hemoglobin 8.4 GM/DL (11.6-15.3) 6.5 GM/DL (11.6-15.3) 7.2 GM/DL (11.6-15.3) 9.1 GM/DL (11.6-15.3) Hematocrit 25.1 % (35.0-46.0) 19.8 % (35.0-46.0) 21.8 % (35.0-46.0) 26.5 % (35.0-46.0) Mean Corpuscular Volume 90.7 FL (80.0-100.0) 92.0 FL (80.0-100.0) 91.8 FL (80.0-100.0) Mean Corpuscular Hemoglobin 30.4 PG (27.0-34.0) 30.3 PG (27.0-34.0) 30.1 PG (27.0-34.0) Mean Corpuscular Hemoglobin Concent 33.5 % (32.0-36.0) 33.0 % (32.0-36.0) 32.8 % (32.0-36.0) Red Cell Distribution Width 16.1 % (11.6-17.2) 16.3 % (11.6-17.2) 17.1 % (11.6-17.2) Platelet Count 49 TH/MM3 (150-450) 48 TH/MM3 (150-450) 58 TH/MM3 (150-450) Mean Platelet Volume 10.2 FL (7.0-11.0) 10.0 FL (7.0-11.0) 10.4 FL (7.0-11.0) Neutrophils (%) (Auto) 95.5 % (16.0-70.0) 91.6 % (16.0-70.0) Lymphocytes (%) (Auto) 1.2 % (9.0-44.0) 2.4 % (9.0-44.0) Monocytes (%) (Auto) 3.0 % (0.0-8.0) 5.9 % (0.0-8.0) Eosinophils (%) (Auto) 0.0 % (0.0-4.0) 0.0 % (0.0-4.0) Basophils (%) (Auto) 0.3 % (0.0-2.0) 0.1 % (0.0-2.0) Neutrophils # (Auto) 17.7 TH/MM3 (1.8-7.7) 11.5 TH/MM3 (1.8-7.7) Lymphocytes # (Auto) 0.2 TH/MM3 (1.0-4.8) 0.3 TH/MM3 (1.0-4.8) Monocytes # (Auto) 0.6 TH/MM3 (0-0.9) 0.7 TH/MM3 (0-0.9) Eosinophils # (Auto) 0.0 TH/MM3 (0-0.4) 0.0 TH/MM3 (0-0.4) Basophils # (Auto) 0.1 TH/MM3 (0-0.2) 0.0 TH/MM3 (0-0.2) CBC Comment AUTO DIFF AUTO DIFF Differential Comment AUTO DIFF CONFIRMED AUTO DIFF CONFIRMED Platelet Estimate LOW (NORMAL) LOW (NORMAL) Platelet Morphology Comment NORMAL (NORMAL) NORMAL (NORMAL) Blood Urea Nitrogen 93 MG/DL (7-18) 66 MG/DL (7-18) 66 MG/DL (7-18) Creatinine 4.44 MG/DL (0.50-1.00) 3.47 MG/DL (0.50-1.00) 3.48 MG/DL (0.50-1.00) Random Glucose 211 MG/DL (74-106) 212 MG/DL (74-106) 203 MG/DL (74-106) Calcium Level 8.1 MG/DL (8.5-10.1) 8.0 MG/DL (8.5-10.1) 8.2 MG/DL (8.5-10.1) Sodium Level 138 MEQ/L (136-145) 139 MEQ/L (136-145) 140 MEQ/L (136-145) Potassium Level 3.0 MEQ/L (3.5-5.1) 2.8 MEQ/L (3.5-5.1) 2.7 MEQ/L (3.5-5.1) 3.5 MEQ/L (3.5-5.1) Chloride Level 98 MEQ/L (98-107) 98 MEQ/L (98-107) 99 MEQ/L (98-107) Carbon Dioxide Level 24.3 MEQ/L (21.0-32.0) 25.9 MEQ/L (21.0-32.0) 26.3 MEQ/L (21.0-32.0) Anion Gap 16 MEQ/L (5-15) 15 MEQ/L (5-15) 15 MEQ/L (5-15) Estimat Glomerular Filtration Rate 10 ML/MIN (>89) 13 ML/MIN (>89) 13 ML/MIN (>89) Polychromasia 2.0 % (0.0-1.9) Basophilic Stippling FAINT (NORMAL) Acanthocytes OCC (NORMAL) Prothrombin Time 12.7 SEC (9.8-11.6) Prothromb Time International Ratio 1.1 RATIO Activated Partial Thromboplast Time 29.3 SEC (24.3-30.1) Fibrinogen 218 mg/dL (227-377) Total Protein 4.8 GM/DL (6.4-8.2) 5.2 GM/DL (6.4-8.2) Albumin 2.1 GM/DL (3.4-5.0) 2.3 GM/DL (3.4-5.0) Alkaline Phosphatase 224 U/L (45-117) 244 U/L (45-117) Aspartate Amino Transf (AST/SGOT) 40 U/L (15-37) 40 U/L (15-37) Alanine Aminotransferase (ALT/SGPT) 46 U/L (10-53) 48 U/L (10-53) Total Bilirubin 1.5 MG/DL (0.2-1.0) 1.7 MG/DL (0.2-1.0) Lipase 2052 U/L (73-393) Test 12/17/16 04:20 White Blood Count 15.5 TH/MM3 (4.0-11.0) Red Blood Count 3.15 MIL/MM3 (4.00-5.30) Hemoglobin 9.4 GM/DL (11.6-15.3) Hematocrit 28.0 % (35.0-46.0) Mean Corpuscular Volume 89.0 FL (80.0-100.0) Mean Corpuscular Hemoglobin 29.9 PG (27.0-34.0) Mean Corpuscular Hemoglobin Concent 33.6 % (32.0-36.0) Red Cell Distribution Width 17.6 % (11.6-17.2) Platelet Count 59 TH/MM3 (150-450) Mean Platelet Volume 9.8 FL (7.0-11.0) Neutrophils (%) (Auto) 93.9 % (16.0-70.0) Lymphocytes (%) (Auto) 2.4 % (9.0-44.0) Monocytes (%) (Auto) 3.5 % (0.0-8.0) Eosinophils (%) (Auto) 0.0 % (0.0-4.0) Basophils (%) (Auto) 0.2 % (0.0-2.0) Neutrophils # (Auto) 14.6 TH/MM3 (1.8-7.7) Lymphocytes # (Auto) 0.4 TH/MM3 (1.0-4.8) Monocytes # (Auto) 0.5 TH/MM3 (0-0.9) Eosinophils # (Auto) 0.0 TH/MM3 (0-0.4) Basophils # (Auto) 0.0 TH/MM3 (0-0.2) CBC Comment AUTO DIFF Differential Comment AUTO DIFF CONFIRMED Platelet Estimate LOW (NORMAL) Platelet Morphology Comment NORMAL (NORMAL) Acanthocytes OCC (NORMAL) Prothrombin Time 11.8 SEC (9.8-11.6) Prothromb Time International Ratio 1.1 RATIO Activated Partial Thromboplast Time 26.4 SEC (24.3-30.1) Fibrinogen 328 mg/dL (227-377) Blood Urea Nitrogen 78 MG/DL (7-18) Creatinine 3.94 MG/DL (0.50-1.00) Random Glucose 162 MG/DL (74-106) Total Protein 5.4 GM/DL (6.4-8.2) Albumin 2.0 GM/DL (3.4-5.0) Calcium Level 7.8 MG/DL (8.5-10.1) Alkaline Phosphatase 252 U/L (45-117) Aspartate Amino Transf (AST/SGOT) 46 U/L (15-37) Alanine Aminotransferase (ALT/SGPT) 44 U/L (10-53) Total Bilirubin 2.2 MG/DL (0.2-1.0) Sodium Level 139 MEQ/L (136-145) Potassium Level 3.4 MEQ/L (3.5-5.1) Chloride Level 101 MEQ/L (98-107) Carbon Dioxide Level 23.0 MEQ/L (21.0-32.0) Anion Gap 15 MEQ/L (5-15) Estimat Glomerular Filtration Rate 11 ML/MIN (>89) Result Diagram: 12/17/1641912/17/16419 Imaging Last 72 hours Impressions Cholangiopancreatography MRI 12/15/16 Signed Impressions: Service Date/Time: Thursday, December 15, 2016 17:40 - CONCLUSION: 1. Multiple filling defects in the common bile duct down to the ampulla.. 2. Cholecystostomy catheter in place. 3. No dilation of the pancreatic duct. Nain Mejia MD Chest X-Ray 12/15/16 Signed Impressions: Service Date/Time: Thursday, December 15, 2016 04:03 - CONCLUSION: Slightly improved bibasilar consolidation. Fermin Rodriguez MD Cervical Spine MRI 12/15/16 Signed Impressions: Service Date/Time: Thursday, December 15, 2016 17:40 - CONCLUSION: 1. Status post anterior multilevel fusion at the C4-C7 level. 2. Hypertrophic ridging is noted C4-5, C5-6 and C6-7 levels with mass effect on the anterior thecal sac. There is slight flattening of the anterior cord at C4-5. 3. Disc osteophyte complex at C3-4 with mild flattening the anterior cord. 4. Narrowing of the neural foramina bilaterally at the C3-4 through C5-6 level and on the right at C2-3 and on the left at C6-7. Josef Luther MD Brain MRI 12/15/16 0000 Signed Impressions: Service Date/Time: Thursday, December 15, 2016 17:40 - CONCLUSION: Negative exam with no evidence of hemorrhage, mass or infarction. Josef Luther MD Assessment and Plan Disease Oriented Problem List: (1) Sepsis (2) Metabolic acidosis (3) Acute cholecystitis (4) Respiratory failure Symptom Scale: (1) Dyspnea (2) Debility (3) Pain Pertinent Non-Medical Issues Psychosocial:Patient is originally from [place], [place], she has been to her for 56 years and has two children. 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 She retired in her early 60s when she began spending half of the year between [place] and [place]. Spiritual: [employer]. Legal: None known. Ethical issues impacting care:None known. Important Contacts Marco Antonio Flores () [phone] . Prognosis Patient has experienced a physical and functional decline over the past two years. She has suffered from chronic back pain due to scoliosis and has recently drank daily heavily to alleviate the pain. The patient was admitted for sepsis followed by respiratory distress requiring intubation, she has continued to decline and has now progressed into multiorgan failure. She is at an increased risk for complications/setbacks due to her advanced age, multiple comorbidities, and current clinical status. . Code Status: Alternative Code Plan * Legal decision maker: Patient does not have the capacity to make her own health care decisions. It is unclear at this time if she will regain the capacity to make her own health care decisions. Documented HCS is patient's Marco Antonio Flores [phone], alternate HCS are Alvin Flores or Pippa Flores. * CODE STATUS:Alternative code, intubation only. * GOALS: Aggressive short of CPR. * Additional meeting with patient's this afternoon, he called for a meeting to discuss the patient's ability to make medical decisions independently , she was scheduled for an ERCP today and has subsequently refused. notified their children and we discussed at length the patient's current clinical status. The family has collectively agreed to wait 24 hours before making any decisions and revisit with the patient the decision to move forward with the ERCP and more importantly the focus of GOC, aggressive versus comfort oriented. Plan to reconvene tomorrow morning to discuss GOC further. * SYMPTOM MANAGEMENT: * --pain: Patient at ongoing risk for pain secondary to intubation, mechanical ventilation, and bedbound status. Roxicodone 10mg q 6 hours PRN for pain ordered, 1 dose utilized in the past 24 hours. No recommendations at this time, further recommendations pending hospital course. * --dyspnea: Patient is intubated and mechanically ventilated, duonebs scheduled q 6hr and q 2hr PRN ordered. No recommendations at this time. * --debility: Secondary to current clinical status, mechanical ventilation, bedbound status. PT/OT following and working with the patient. No recommendations at this time. * Palliative care will continue to follow during hospital course as condition evolves, to assist patient/family/decision-maker with understanding of medical conditions, weighing benefit/burdens of treatment options, for clarification of goals of treatment. Additionally will assist with symptoms of palliative concern. Attestation To help prompt me to consider important information that might be impacting today's encounter and assessment, information from prior notes written by myself or my colleagues may have been "brought forward" into today's note. My signature on this note, however, is an attestation that I personally performed the exam, history, and/or decision-making noted today, and, unless otherwise indicated, the interactions with patient, family, and staff as well as the review of records all occurred today. I also attest that the listed assessment and stated plan reflect my best clinical judgment today based on the combination of historical information, prior notes, and today's exam/ interactions. When time spent is documented, it refers only to time spent today by the signer, or if indicated, combined time spent today by collaborating physician/nurse practitioner. Kallie Miranda Dec 17, 2016 12:27
--- NOTE | 2016-12-17 12:35 | PD.ONC.PN ---
Subjective Subjective Remarks Afebrile overnight. Patient intubated but awake. at bedside, hopeful that she will improve after planned ERCP procedure. No bleeding. Objective Data Date Time Temp Pulse Resp B/P (MAP) Pulse Ox O2 Delivery O2 Flow Rate FiO2 12/17/16 12:02 99 35 12/17/16 08:00 97.9 75 17 158/78 (104) 97 12/17/16 07:21 35 12/17/16 07:21 99 35 12/17/16 07:00 75 18 139/70 (93) 97 12/17/16 06:00 93 12/17/16 04:07 98 35 12/17/16 04:00 98.0 91 22 167/81 (109) 96 12/17/16 04:00 35 12/17/16 04:00 95 12/17/16 02:00 89 12/17/16 01:40 99 35 12/17/16 00:00 98.5 89 18 151/70 (97) 98 12/17/16 00:00 35 12/17/16 00:00 89 12/16/16 23:00 18 12/16/16 22:46 99 35 12/16/16 22:00 75 12/16/16 20:20 99 35 12/16/16 20:00 98.6 82 26 151/72 (98) 98 12/16/16 20:00 35 12/16/16 20:00 82 12/16/16 18:00 83 12/16/16 16:13 98.4 85 20 165/76 98 12/16/16 16:00 98.4 82 18 165/76 (105) 97 12/16/16 16:00 35 12/16/16 16:00 82 12/16/16 15:01 98 35 12/16/16 15:00 89 19 163/79 (107) 97 12/16/16 14:00 92 12/16/16 14:00 92 20 139/71 (93) 97 12/16/16 13:54 98.4 94 20 137/66 98 12/16/16 13:33 98.1 84 16 137/66 98 12/16/16 13:00 88 18 137/66 (89) 97 12/17/16 12/17/16 12/17/16 07:00 15:00 23:00 Intake Total 384 ml Output Total 580 ml Balance -196 ml Result Diagram: 12/17/16 0420 12/17/16 0420 Laboratory Results Laboratory Tests Test 12/16/16 20:32 12/17/16 04:20 Hemoglobin 9.1 GM/DL 9.4 GM/DL Hematocrit 26.5 % 28.0 % Potassium Level 3.5 MEQ/L 3.4 MEQ/L White Blood Count 15.5 TH/MM3 Red Blood Count 3.15 MIL/MM3 Mean Corpuscular Volume 89.0 FL Mean Corpuscular Hemoglobin 29.9 PG Mean Corpuscular Hemoglobin Concent 33.6 % Red Cell Distribution Width 17.6 % Platelet Count 59 TH/MM3 Mean Platelet Volume 9.8 FL Neutrophils (%) (Auto) 93.9 % Lymphocytes (%) (Auto) 2.4 % Monocytes (%) (Auto) 3.5 % Eosinophils (%) (Auto) 0.0 % Basophils (%) (Auto) 0.2 % Neutrophils # (Auto) 14.6 TH/MM3 Lymphocytes # (Auto) 0.4 TH/MM3 Monocytes # (Auto) 0.5 TH/MM3 Eosinophils # (Auto) 0.0 TH/MM3 Basophils # (Auto) 0.0 TH/MM3 CBC Comment AUTO DIFF Differential Comment AUTO DIFF CONFIRMED Platelet Estimate LOW Platelet Morphology Comment NORMAL Acanthocytes OCC Prothrombin Time 11.8 SEC Prothromb Time International Ratio 1.1 RATIO Activated Partial Thromboplast Time 26.4 SEC Fibrinogen 328 mg/dL Blood Urea Nitrogen 78 MG/DL Creatinine 3.94 MG/DL Random Glucose 162 MG/DL Total Protein 5.4 GM/DL Albumin 2.0 GM/DL Calcium Level 7.8 MG/DL Alkaline Phosphatase 252 U/L Aspartate Amino Transf (AST/SGOT) 46 U/L Alanine Aminotransferase (ALT/SGPT) 44 U/L Total Bilirubin 2.2 MG/DL Sodium Level 139 MEQ/L Chloride Level 101 MEQ/L Carbon Dioxide Level 23.0 MEQ/L Anion Gap 15 MEQ/L Estimat Glomerular Filtration Rate 11 ML/MIN Administered Medications Medications (Trade) Dose Ordered Sig/Dhruv Route PRN Reason Start Time Stop Time Status Last Admin Dose Admin Sodium Chloride (NS Flush) 2 ml UNSCH PRN IV FLUSH FLUSH AFTER USING IV ACCESS 12/02/16 16:15 12/14/16 03:11 Sodium Chloride (NS Flush) 2 ml BID IV FLUSH 12/02/16 21:00 12/16/16 20:59 Famotidine (Pepcid Inj) 20 mg DAILY IV PUSH 12/02/16 21:00 12/16/16 08:02 Heparin Sodium (Porcine) (Heparin Inj) 5,000 units Q12H SQ 12/02/16 17:00 Future Hold 12/13/16 14:53 Miscellaneous Information 1 Q361D XX 12/02/16 16:15 12/02/16 16:15 Chlorhexidine Gluconate (Chlorhexidine 2% Cloth) Taper DAILY@04 TOP 12/03/16 04:00 11/29/17 03:59 12/14/16 21:22 Senna/Docusate Sodium (Keely-Colace) 1 tab BID PO 12/02/16 21:00 12/16/16 20:57 Lorazepam (Ativan Inj) 1 mg Q4H PRN IV PUSH ANXIETY 12/02/16 16:45 12/16/16 03:34 Chlorhexidine Gluconate (Peridex 0.12% Liq) 15 ml BID@08,20 MT 12/03/16 08:00 12/16/16 21:00 Sodium Chloride (NS Flush) DAILY IV FLUSH 12/03/16 09:00 12/16/16 08:02 Sodium Chloride (NS Flush) UNSCH PRN IV FLUSH SEE PROTOCOL 12/02/16 23:15 12/06/16 20:52 Artificial Tears (Tears Naturale Opth Soln) 1 drop Q8HR PRN EACH EYE DRY EYE 12/03/16 08:15 12/04/16 17:22 Sodium Chloride 1,000 ml @ 0 mls/hr UNSCH PRN OTHER SEE LABEL COMMENTS 12/05/16 17:30 12/07/16 02:14 Sodium Chloride 1,000 ml @ 0 mls/hr Q0M PRN OTHER For Prime & Rinse Back 12/07/16 10:56 12/15/16 09:56 Albumin Human 100 ml @ 60 mls/hr UNSCH PRN IV WITH DIALYSIS 12/07/16 11:00 12/15/16 09:58 Sodium Chloride (NS Flush) 5 ml UNSCH PRN IV FLUSH WITH DIALYSIS 12/07/16 11:00 12/15/16 09:56 Gentamicin Sulfate (Gentamicin (Dialysis) Inj) 20 mg UNSCH PRN OTHER WITH DIALYSIS 12/07/16 11:00 12/15/16 09:56 Epoetin Ronald (Epogen Inj) 10,000 units UNSCH PRN IV PUSH WITH DIALYSIS 12/07/16 11:00 12/15/16 09:56 Piperacillin Sod/ Tazobactam Sod 50 ml @ 100 mls/hr Q6H IV 12/07/16 17:00 12/17/16 05:43 Levofloxacin/ Dextrose 100 ml @ 100 mls/hr Q48H IV 12/07/16 16:00 12/15/16 15:13 Diltiazem HCl (Cardizem) 60 mg Q6HR PO 12/12/16 08:15 12/17/16 05:43 Insulin Human Regular (NovoLIN R SUPPLEMENTAL SCALE) 1 Q6H SQ 12/13/16 14:00 12/16/16 20:00 Oxycodone HCl (Roxicodone Intensol Liq) 5 mg Q6H PRN PO PAIN 1-7 12/15/16 17:45 12/16/16 16:32 Hydrocortisone Sodium Succinate (SoluCORTEF INJ) 25 mg Q12HR IV PUSH 12/16/16 21:00 12/17/16 21:01 12/16/16 20:57 Oxycodone HCl (Roxicodone Intensol Liq) 10 mg Q6H PRN PO PAIN 8-10 12/16/16 17:45 12/17/16 04:42 Objective Remarks GENERAL: Intubated female, lying supine in bed. SKIN: Warm and dry. bandages along left forearm without bleeding. HEAD: Normocephalic. EYES: No injection or drainage. NECK: Supple, trachea midline. CARDIOVASCULAR:+S1/S2 RESPIRATORY: anterior dennis clear. on mechanical ventilation GASTROINTESTINAL: Abdomen mildly distended. EXTREMITIES: No cyanosis. +anasarca NEUROLOGICAL: intubated, awake. tracks with eyes. Assessment/Plan Problem List: (1) Pancytopenia ICD Codes: D61.818 - Other pancytopenia Plan: 12/17: platelets 59K today. coags ok. monitor for bleeding. no transfusion needed at present. --due to bone marrow suppression from sepsis. --expect her pancytopenia to get worse in the next several days if sepsis is not under control. --monitor her CBC closely and provide blood product support as needed. (2) Sepsis ICD Codes: A41.9 - Sepsis, unspecified organism Status: Acute (3) Acute kidney injury ICD Codes: N17.9 - Acute kidney failure, unspecified Status: Acute Plan: --receiving HD on Assessment 71 y/o female with coagulopathy d/t sepsis. Attending Statement The exam, history, and the medical decision-making described in the above note were completed with the assistance of the mid-level provider. I reviewed and agree with the findings presented. I attest that I had a [id number] encounter with the patient on the same day, and personally performed and documented my assessment and findings in the medical record. On vent, awake plat are stable. NO bleeding sepsis monitor cbc will follow. Problem Qualifiers (1) Sepsis: Qualified Codes: A41.9 - Sepsis, unspecified organism Tatum Proctor Dec 17, 2016 12:35 Lana Justice MD Dec 17, 2016 18:10
--- NOTE | 2016-12-17 12:50 | HHI.NPPN ---
Subjective History of Present Illness 71 year old with septic shock, ARF Additional Remarks Patient remain intubated, clinically same. Objective Data Data Vital Signs Date Time Temp Pulse Resp B/P (MAP) Pulse Ox O2 Delivery O2 Flow Rate FiO2 12/17/16 12:02 99 35 12/17/16 08:00 97.9 75 17 158/78 (104) 97 12/17/16 07:21 35 12/17/16 07:21 99 35 12/17/16 07:00 75 18 139/70 (93) 97 12/17/16 06:00 93 12/17/16 04:07 98 35 12/17/16 04:00 98.0 91 22 167/81 (109) 96 12/17/16 04:00 35 12/17/16 04:00 95 12/17/16 02:00 89 12/17/16 01:40 99 35 12/17/16 00:00 98.5 89 18 151/70 (97) 98 12/17/16 00:00 35 12/17/16 00:00 89 12/16/16 23:00 18 12/16/16 22:46 99 35 12/16/16 22:00 75 12/16/16 20:20 99 35 12/16/16 20:00 98.6 82 26 151/72 (98) 98 12/16/16 20:00 35 12/16/16 20:00 82 12/16/16 18:00 83 12/16/16 16:13 98.4 85 20 165/76 98 12/16/16 16:00 98.4 82 18 165/76 (105) 97 12/16/16 16:00 35 12/16/16 16:00 82 12/16/16 15:01 98 35 12/16/16 15:00 89 19 163/79 (107) 97 12/16/16 14:00 92 12/16/16 14:00 92 20 139/71 (93) 97 12/16/16 13:54 98.4 94 20 137/66 98 12/16/16 13:33 98.1 84 16 137/66 98 12/16/16 13:00 88 18 137/66 (89) 97 -: 12/17/16 0420 12/17/16 0420 Physical Exam Neck Neck Exam: Neck Supple Pulmonary Resp Exam: Clear Bilaterally Cardiology CV Exam: Regular Gastrointestinal/Abdomen GI Exam: Soft, Bowel Sounds Present, Non-Distended Integumentary Skin Exam: Clear Extremeties Extremities Exam: Pitting Edema, Dependent Edema Assessment/Plan Problem List: (1) Acute kidney injury ICD Codes: N17.9 - Acute kidney failure, unspecified Status: Acute Plan: Patient has septic shock and acute tubular necrosis making small amount of urine, Continue supportive care Continue to monitor avoid Nephrotoxins. Patient now started on intermittent HD, cholecystostomy tube draining Vas-Cath has been exchanged dialysis Saturday UF 3 L k 3.4 replace she has Anasarca ?ERCP d/w she is on Vent extubation per Critical care but high chance of re intubation (2) Acute cholecystitis ICD Codes: K81.0 - Acute cholecystitis Plan: Status post cholecystostomy (3) Sepsis ICD Codes: A41.9 - Sepsis, unspecified organism Status: Acute Plan: On antibiotics Problem Qualifiers (1) Sepsis: Qualified Codes: A41.9 - Sepsis, unspecified organism Myrtle Carlos MD Dec 17, 2016 12:50
--- NOTE | 2016-12-17 12:59 | MB ---
cc: ROWAN LOZANO M.D. DATE OF CONSULTATION 12/17/2016 REASON FOR CONSULTATION: She is a 71-year-old woman seen in neurological consultation in regards to quadriparesis. HISTORY OF PRESENT ILLNESS She was admitted on 12/02 with fever, shortness of breath, abdominal pain, nausea. She has been treated for sepsis and she was intubated apparently on the day after admission. She remains intubated. Sedation has been discontinued in the past couple of days. She has been on vasopressors. She has been on C-PAP lately and she apparently is in need of ERCP. Neurosurgery saw the patient and found no evidence of myelopathy. An MRI of brain was unremarkable and MRI cervical spine shows no evidence of myelopathy. ADDITIONAL HISTORY The is at bedside. No history of stroke, seizures or TIA. The patient uses a walker and has been doing this for four years because of "scoliosis". She had cervical spine surgery about 3 years ago. 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 CURRENT MEDICATION LIST Noted. 1. Solu-Cortef 25 q. 12. 2. P.r.n. Roxicodone. 3. Insulin. 4. Diltiazem. 5. Piperacillin. 6. Levofloxacin. 7. Mannitol with dialysis. 8. Gentamicin with dialysis. 9. Zofran and multiple p.r.n. medications. PHYSICAL EXAMINATION Exam showed the patient to be awake, establishing eye contact, gazing in all directions. She was able to count fingers bilaterally. Pupils are about same size, reactive. No facial asymmetry. She is now moving the extremities on commands and spontaneously. She starts flexing the elbows, there is more edema on the left than right and therefore she is able to flex the right more than left. 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 She is even able to start shrugging her shoulders. Overall her upper extremities were about 3 and in some muscles she was 4/5. In the lower extremities she is weaker proximally but she is able to internally rotate the legs touching the knees to each other. She will pose some resistance with feet plantar and dorsiflexion, though mild. She may have trace reflexes at the knees, though due to her acute care illness, reflexes are tested with some limitation. I did not obtain any reflex at the elbows or ankles. Plantar responses are probably flexor bilaterally. She was able to respond appropriately to position sense in the distal lower extremities and no gross difference between the perception to some somatosensory stimulation in the distal lower extremities and upper extremities. RECENT LABS Reviewed. Today's white count 15.5, hemoglobin 9.4, though hemoglobin yesterday was down to 6.5. Platelet count yesterday 48 today is 59. Chemistry - Sodium 139, potassium 3.4, but potassium yesterday was 2.7. BUN 78, creatinine 3.94, glucose random today 162, AST 46, ALT 44. ASSESSMENT Quadriparesis secondary to critical care illness/sepsis/ respiratory and renal insufficiency. Hypotension. 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 She seems to be doing reasonably well cognition-horton at the point and has no previous history of cognition problems. She already had some previous gait impairment. She has been using a walker for 4 years so and she is status post cervical spine surgery, right knee surgery. I do not think this is a pure Guillain-Trout syndrome. At this point I would continue with the medical care and I expect that her neurologic symptoms will slowly improve, it may take weeks or months before she is able to be up, ambulating. We will follow her peripherally but please call us if any other acute neurologic change occurs. Thank you for asking us to assist in her care. MD SOM Sinha/SSB /12:15 PM /12:43 PM
[2016-12-17] MEDS: FAMOTIDINE 20 MG/2 ML VIAL IV PUSH SCH (13:42)
[2016-12-17] MEDS ORDERED: POTASSIUM CHLOR 10 MEQ PREMIX 100 ML IV ONE (14:00)
--- NOTE | 2016-12-17 14:49 | HHI.IDPN ---
Subjective Subjective Remarks better ojn vent, arti CPAP large clear light secretions + diarrhea off pressors Antibiotics zosyn' levaquine Allergies: Coded Allergies: No Known Allergies (Unverified , 12/02/16) Objective . Vital Signs Date Time Temp Pulse Resp B/P (MAP) Pulse Ox O2 Delivery O2 Flow Rate FiO2 12/17/16 12:02 99 35 12/17/16 08:00 97.9 75 17 158/78 (104) 97 12/17/16 07:21 35 12/17/16 07:21 99 35 12/17/16 07:00 75 18 139/70 (93) 97 12/17/16 06:00 93 12/17/16 04:07 98 35 12/17/16 04:00 98.0 91 22 167/81 (109) 96 12/17/16 04:00 35 12/17/16 04:00 95 12/17/16 02:00 89 12/17/16 01:40 99 35 12/17/16 00:00 98.5 89 18 151/70 (97) 98 12/17/16 00:00 35 12/17/16 00:00 89 12/16/16 23:00 18 12/16/16 22:46 99 35 12/16/16 22:00 75 12/16/16 20:20 99 35 12/16/16 20:00 98.6 82 26 151/72 (98) 98 12/16/16 20:00 35 12/16/16 20:00 82 12/16/16 18:00 83 12/16/16 16:13 98.4 85 20 165/76 98 12/16/16 16:00 98.4 82 18 165/76 (105) 97 12/16/16 16:00 35 12/16/16 16:00 82 12/16/16 15:01 98 35 12/16/16 15:00 89 19 163/79 (107) 97 . Laboratory Tests Test 12/16/16 05:20 12/16/16 07:40 12/16/16 20:32 12/17/16 04:20 White Blood Count 12.5 TH/MM3 14.7 TH/MM3 15.5 TH/MM3 Red Blood Count 2.16 MIL/MM3 2.38 MIL/MM3 3.15 MIL/MM3 Hemoglobin 6.5 GM/DL 7.2 GM/DL 9.1 GM/DL 9.4 GM/DL Hematocrit 19.8 % 21.8 % 26.5 % 28.0 % Mean Corpuscular Volume 92.0 FL 91.8 FL 89.0 FL Mean Corpuscular Hemoglobin 30.3 PG 30.1 PG 29.9 PG Mean Corpuscular Hemoglobin Concent 33.0 % 32.8 % 33.6 % Red Cell Distribution Width 16.3 % 17.1 % 17.6 % Platelet Count 48 TH/MM3 58 TH/MM3 59 TH/MM3 Mean Platelet Volume 10.0 FL 10.4 FL 9.8 FL Neutrophils (%) (Auto) 91.6 % 93.9 % Lymphocytes (%) (Auto) 2.4 % 2.4 % Monocytes (%) (Auto) 5.9 % 3.5 % Eosinophils (%) (Auto) 0.0 % 0.0 % Basophils (%) (Auto) 0.1 % 0.2 % Neutrophils # (Auto) 11.5 TH/MM3 14.6 TH/MM3 Lymphocytes # (Auto) 0.3 TH/MM3 0.4 TH/MM3 Monocytes # (Auto) 0.7 TH/MM3 0.5 TH/MM3 Eosinophils # (Auto) 0.0 TH/MM3 0.0 TH/MM3 Basophils # (Auto) 0.0 TH/MM3 0.0 TH/MM3 CBC Comment AUTO DIFF AUTO DIFF Differential Comment AUTO DIFF CONFIRMED AUTO DIFF CONFIRMED Platelet Estimate LOW LOW Platelet Morphology Comment NORMAL NORMAL Polychromasia 2.0 % Basophilic Stippling FAINT Acanthocytes OCC OCC Laboratory Tests Test 12/16/16 05:20 12/16/16 07:40 12/16/16 20:32 12/17/16 04:20 Blood Urea Nitrogen 66 MG/DL 66 MG/DL 78 MG/DL Creatinine 3.47 MG/DL 3.48 MG/DL 3.94 MG/DL Random Glucose 212 MG/DL 203 MG/DL 162 MG/DL Total Protein 4.8 GM/DL 5.2 GM/DL 5.4 GM/DL Albumin 2.1 GM/DL 2.3 GM/DL 2.0 GM/DL Calcium Level 8.0 MG/DL 8.2 MG/DL 7.8 MG/DL Alkaline Phosphatase 224 U/L 244 U/L 252 U/L Aspartate Amino Transf (AST/SGOT) 40 U/L 40 U/L 46 U/L Alanine Aminotransferase (ALT/SGPT) 46 U/L 48 U/L 44 U/L Total Bilirubin 1.5 MG/DL 1.7 MG/DL 2.2 MG/DL Sodium Level 139 MEQ/L 140 MEQ/L 139 MEQ/L Potassium Level 2.8 MEQ/L 2.7 MEQ/L 3.5 MEQ/L 3.4 MEQ/L Chloride Level 98 MEQ/L 99 MEQ/L 101 MEQ/L Carbon Dioxide Level 25.9 MEQ/L 26.3 MEQ/L 23.0 MEQ/L Anion Gap 15 MEQ/L 15 MEQ/L 15 MEQ/L Estimat Glomerular Filtration Rate 13 ML/MIN 13 ML/MIN 11 ML/MIN Lipase 2052 U/L Imaging Last Impressions Cholangiopancreatography MRI 12/15/16 0000 Signed Impressions: Service Date/Time: Thursday, December 15, 2016 17:40 - CONCLUSION: 1. Multiple filling defects in the common bile duct down to the ampulla.. 2. Cholecystostomy catheter in place. 3. No dilation of the pancreatic duct. Nain Mejia MD Chest X-Ray 12/15/16 0000 Signed Impressions: Service Date/Time: Thursday, December 15, 2016 04:03 - CONCLUSION: Slightly improved bibasilar consolidation. Fermin Rodriguez MD Cervical Spine MRI 12/15/16 0000 Signed Impressions: Service Date/Time: Thursday, December 15, 2016 17:40 - CONCLUSION: 1. Status post anterior multilevel fusion at the C4-C7 level. 2. Hypertrophic ridging is noted C4-5, C5-6 and C6-7 levels with mass effect on the anterior thecal sac. There is slight flattening of the anterior cord at C4-5. 3. Disc osteophyte complex at C3-4 with mild flattening the anterior cord. 4. Narrowing of the neural foramina bilaterally at the C3-4 through C5-6 level and on the right at C2-3 and on the left at C6-7. Josef Luther MD Brain MRI 12/15/16 0000 Signed Impressions: Service Date/Time: Thursday, December 15, 2016 17:40 - CONCLUSION: Negative exam with no evidence of hemorrhage, mass or infarction. Josef Luther MD Cholangiogram 12/14/16 0000 Signed Impressions: Service Date/Time: Wednesday, December 14, 2016 14:03 - CONCLUSION: 1. Cholecystostomy tube in good position. Continued occlusion of the cystic duct. The gallbladder lumen was irrigated and an accordion device placed on the cholecystostomy tube. Nain Sharma Jr., MD Catheter Placement X-Ray 12/13/16 0000 Signed Impressions: Service Date/Time: November 14:14 - CONCLUSION: Uncomplicated line placement as above. Nain Sharma Jr., MD Head CT 12/11/16 0000 Signed Impressions: Service Date/Time: Sunday, December 11, 2016 17:09 - CONCLUSION: 1. Minimal chronic sinusitis in the sphenoid sinuses bilaterally. 2. Bilateral acute mastoiditis. 3. Otherwise negative. Anatomic detail is somewhat limited due to motion artifact, however. Jamel Johns MD Chest CT 12/11/16 0000 Signed Impressions: Service Date/Time: Sunday, December 11, 2016 17:15 - CONCLUSION: Small bibasilar consolidation and/or compressive collapse and bilateral pleural effusions. Kristen Deleon MD Abdomen/Pelvis CT 12/11/16 0000 Signed Impressions: Service Date/Time: Sunday, December 11, 2016 17:15 - CONCLUSION: 1. Cholecystostomy tube in place with decrease in the amount of hyperdensity within the lumen. 2. Persistent bilateral pleural effusions, stable. Persistent free fluid in the pelvis, slightly decreased. 3. Increase in the amount of induration of the lateral abdominal wall and pelvic subcutaneous tissues an increase swelling of the lateral musculature Nain Mejia MD Abdomen X-Ray 12/09/16 0000 Signed Impressions: Service Date/Time: Friday, December 09, 2016 12:19 - CONCLUSION: OG tube tip in the distal stomach. Fermin Wills MD Abdomen CT 12/08/16 0000 Signed Impressions: Service Date/Time: Thursday, December 08, 2016 17:52 - CONCLUSION: 1. Cholecystostomy tube in good position. Nain Sharma Jr., MD Percutaneous Cholangiogram 12/03/16 0000 Signed Impressions: Service Date/Time: Saturday, December 03, 2016 14:31 - CONCLUSION: Uncomplicated percutaneous cholecystostomy as above. Nain Sharma Jr., MD Liver Ultrasound 12/02/16 0000 Signed Impressions: Service Date/Time: Friday, December 02, 2016 19:12 - CONCLUSION: 1. Cholelithiasis with wall thickening and trace pericholecystic fluid. 2. No evidence of biliary duct distention. 3. No other significant abnormality. Jak Hughes MD Physical Exam CONSTITUTIONAL/GENERAL: This is an adequately nourished patient, in no apparent distress. TUBES/LINES/DRAINS: biliary drain in place with small amount of brown bile SKIN: less jaundice, rashes, or lesions. . Skin temperature appropriate. Not diaphoretic. HEAD: Atraumatic. Normocephalic. EYES: Pupils equal and round and reactive. very mild scleral icterus. No injection or drainage. Fundi not examined. ENT: Hearing not assessed. Nose without bleeding or purulent drainage. Oraly intubated NECK: Trachea midline. Supple, nontender. CARDIOVASCULAR: Regular rate and rhythm without murmurs, gallops, or rubs. No JVD. Peripheral pulses symmetric. well perfused RESPIRATORY/CHEST: Symmetric, unlabored respirations. Rhonchi to auscultation. Breath sounds equal bilaterally. No wheezes + very large amount of clear secretions GASTROINTESTINAL: Abdomen soft, no reaction to papation + distended. No hepato- splenomegaly, or palpable masses. Biliary drain in place brown bile Dignishield in place - liquid dark stool GENITOURINARY: Without palpable bladder distension. Peterson catheter in place with small amount of cloudy urine MUSCULOSKELETAL: Extremities without clubbing, cyanosis, improved edema. No mottling or clubbing. NEUROLOGICAL: Opens eyes to voice, not communicatig m,uch PSYCHIATRIC: unabe to assess Assessment & Plan Remarks Billiary sepsis ? uncontrolled as of today WBC trending up, pts and fibrinogen down Multi-organ failure: acute VDRF ARF, on HD Hypotension, resolved, currently off pressors Gram negative sepsis - biliary Acute calculous cholecystitis sp cholecystostomy tube placement - growing enterococccus chirinos S and >=3 MIXED ENTERIC GRAM NEGATIVE RODS in the bile clx - not much drainage ? E.coli UTI vs colonisatrion ? PNA vs ARDS - growing E.coli in sputum R to zosyn - growing steno mal - growing GNB again Now growing Steno malt, also S to levaquine Critical, seems more stable today Leukocytosis, leukemoid reaction - WBC trending down Fibrinogen trending up today, plts dwn likely DIC Critically ill, appears to be more stable today Mental status change : improved ABx associated diarrhea cont zosyn cont levaqine for zosyn-R E.coli and steno malt in the sputum chk stool for C.diff Jina Ramos MD Dec 17, 2016 14:49
[2016-12-17] MEDS: LEVOFLOXACIN 500 MG PREMIX INJ 100 ML IV SCH (16:00)
[2016-12-18] VITALS (13 sets, daily range): BP systolic 133–169; BP diastolic 64–89; PULSE 93–166; RESP 16–24; O2SAT 94–100
[2016-12-18] MEDS ORDERED: DILTIAZEM HCL 25 MG/5 ML VIAL IV SCH (00:30)
[2016-12-18] MEDS: INSULIN NovoLIN REGULAR SUPPLEMENTAL SCALE SQ SCH ×3 (02:00→14:00)
[2016-12-18] MEDS: CHLORHEXIDINE GLUCONATE 2 % 1 PACK (2 CLOTHS) TOP SCH (04:00)
[2016-12-18] MEDS: PIPERACIL-TAZO 2.25 GM PREMIX 50 ML IV SCH ×2 (05:00→10:05)
[2016-12-18] MEDS: DILTIAZEM HCL 60 MG TAB PO SCH ×3 (05:10→12:00)
--- NOTE | 2016-12-18 07:54 | HHI.GIFU ---
Subjective Remarks Resting in bed. She was extubated yesterday. She is lethargic but awake and oriented to person and place. D/W abnormal MRCP with multiple filling defects in the common bile duct and our recommendations for ERCP (benefits/risks). The patient is adamant that she does not wish to pursue ERCP or any other procedures. The nurse reports that she has been refusing medications. Palliative care to meet with family this am. (Danica Shipley) Objective Vitals I&O Vital Signs Date Time Temp Pulse Resp B/P (MAP) Pulse Ox O2 Delivery O2 Flow Rate FiO2 12/18/16 06:00 108 12/18/16 04:00 102 12/18/16 04:00 108 18 133/64 (87) 98 12/18/16 02:00 165 12/18/16 00:00 166 18 141/70 (93) 97 12/18/16 00:00 165 12/17/16 23:00 179 12/17/16 22:00 115 12/17/16 20:00 104 22 155/72 (99) 95 12/17/16 20:00 104 12/17/16 19:16 97 Nasal Cannula 4.00 12/17/16 18:00 96 21 148/75 (99) 97 12/17/16 17:00 94 21 157/76 (103) 97 12/17/16 16:30 97 Nasal Cannula 4 12/17/16 16:30 97 Nasal Cannula 4.00 12/17/16 16:00 97.9 98 19 147/82 (103) 98 12/17/16 15:00 96 14 142/70 (94) 97 12/17/16 14:00 84 15 149/74 (99) 97 12/17/16 13:00 79 16 148/76 (100) 96 12/17/16 12:02 99 35 12/17/16 12:00 98.3 90 21 165/71 (102) 96 12/17/16 12:00 35 12/17/16 11:00 86 21 172/87 (115) 96 12/17/16 10:00 85 19 155/78 (103) 96 12/17/16 09:00 85 18 153/74 (100) 96 12/17/16 08:00 97.9 75 17 158/78 (104) 97 12/17/16 08:00 35 I/O 12/17/16 12/17/16 12/17/16 12/18/16 12/18/16 12/18/16 07:00 15:00 23:00 07:00 15:00 23:00 Intake Total 384 ml 0 ml Output Total 580 ml 625 ml 680 ml Balance -196 ml -625 ml -680 ml Intake Oral 0 ml IV Total 125 ml Tube Feeding 259 ml Output Urine Total 450 ml 550 ml 600 ml Stool Total 100 ml 50 ml Drainage Total 30 ml 75 ml 30 ml Laboratory Laboratory Tests Test 12/17/16 15:56 Blood Gas Puncture Site RT RADIAL Blood Gas Patient Temperature 98.6 Blood Gas HCO3 24 Blood Gas Base Excess 1.0 Blood Gas Oxygen Saturation 94 Arterial Blood pH 7.48 Arterial Blood Partial Pressure CO2 33 Arterial Blood Partial Pressure O2 84 Arterial Blood Oxygen Content 12.7 Arterial Blood Carboxyhemoglobin 2.1 Arterial Blood Methemoglobin 1.3 Blood Gas Hemoglobin 9.6 Oxygen Delivery Device VENTILATOR Blood Gas Ventilator Setting CPAP Blood Gas Inspired Oxygen 35 Date/Time Source Procedure Growth Status 12/09/16 15:13 Blood Peripheral Aerobic Blood Culture - Final NO GROWTH IN 5 DAYS Complete 12/09/16 15:13 Blood Peripheral Anaerobic Blood Culture - Final NO GROWTH IN 5 DAYS Complete 12/03/16 14:55 Fluid Bile Fluid Gram Stain - Final Complete 12/03/16 14:55 Body Fluid Culture - Final Enterococcus Faecalis Complete 12/12/16 17:20 Sputum Endotracheal Gram Stain - Final Complete 12/12/16 17:20 Sputum Culture - Final Stenotrophomonas Maltophilia Complete 12/09/16 18:00 Urine Catheterized Urine Urine Culture - Final NO GROWTH IN 48 HOURS. Complete Imaging Last Impressions Cholangiopancreatography MRI 12/15/16 0000 Signed Impressions: Service Date/Time: Thursday, December 15, 2016 17:40 - CONCLUSION: 1. Multiple filling defects in the common bile duct down to the ampulla.. 2. Cholecystostomy catheter in place. 3. No dilation of the pancreatic duct. Nain Mejia MD Chest X-Ray 12/15/16 0000 Signed Impressions: Service Date/Time: Thursday, December 15, 2016 04:03 - CONCLUSION: Slightly improved bibasilar consolidation. Fermin Rodriguez MD Cervical Spine MRI 12/15/16 0000 Signed Impressions: Service Date/Time: Thursday, December 15, 2016 17:40 - CONCLUSION: 1. Status post anterior multilevel fusion at the C4-C7 level. 2. Hypertrophic ridging is noted C4-5, C5-6 and C6-7 levels with mass effect on the anterior thecal sac. There is slight flattening of the anterior cord at C4-5. 3. Disc osteophyte complex at C3-4 with mild flattening the anterior cord. 4. Narrowing of the neural foramina bilaterally at the C3-4 through C5-6 level and on the right at C2-3 and on the left at C6-7. Josef Luther MD Brain MRI 12/15/16 0000 Signed Impressions: Service Date/Time: Thursday, December 15, 2016 17:40 - CONCLUSION: Negative exam with no evidence of hemorrhage, mass or infarction. Josef Luther MD Cholangiogram 12/14/16 0000 Signed Impressions: Service Date/Time: Wednesday, December 14, 2016 14:03 - CONCLUSION: 1. Cholecystostomy tube in good position. Continued occlusion of the cystic duct. The gallbladder lumen was irrigated and an accordion device placed on the cholecystostomy tube. Nain Sharma Jr., MD Catheter Placement X-Ray 12/13/16 0000 Signed Impressions: Service Date/Time: November 14:14 - CONCLUSION: Uncomplicated line placement as above. Nain Sharma Jr., MD Head CT 12/11/16 0000 Signed Impressions: Service Date/Time: Sunday, December 11, 2016 17:09 - CONCLUSION: 1. Minimal chronic sinusitis in the sphenoid sinuses bilaterally. 2. Bilateral acute mastoiditis. 3. Otherwise negative. Anatomic detail is somewhat limited due to motion artifact, however. Jamel Johns MD Chest CT 12/11/16 0000 Signed Impressions: Service Date/Time: Sunday, December 11, 2016 17:15 - CONCLUSION: Small bibasilar consolidation and/or compressive collapse and bilateral pleural effusions. Kristen Deleon MD Abdomen/Pelvis CT 12/11/16 0000 Signed Impressions: Service Date/Time: Sunday, December 11, 2016 17:15 - CONCLUSION: 1. Cholecystostomy tube in place with decrease in the amount of hyperdensity within the lumen. 2. Persistent bilateral pleural effusions, stable. Persistent free fluid in the pelvis, slightly decreased. 3. Increase in the amount of induration of the lateral abdominal wall and pelvic subcutaneous tissues an increase swelling of the lateral musculature Nain Mejia MD Abdomen X-Ray 12/09/16 0000 Signed Impressions: Service Date/Time: Friday, December 09, 2016 12:19 - CONCLUSION: OG tube tip in the distal stomach. Fermin Wills MD Abdomen CT 12/08/16 0000 Signed Impressions: Service Date/Time: Thursday, December 08, 2016 17:52 - CONCLUSION: 1. Cholecystostomy tube in good position. Nain Sharma Jr., MD Percutaneous Cholangiogram 12/03/16 0000 Signed Impressions: Service Date/Time: Saturday, December 03, 2016 14:31 - CONCLUSION: Uncomplicated percutaneous cholecystostomy as above. Nain Sharma Jr., MD Liver Ultrasound 12/02/16 0000 Signed Impressions: Service Date/Time: Friday, December 02, 2016 19:12 - CONCLUSION: 1. Cholelithiasis with wall thickening and trace pericholecystic fluid. 2. No evidence of biliary duct distention. 3. No other significant abnormality. Jak Hughes MD Physical Exam HEENT: Normocephalic CHEST: Resp even/unlabored. CTA CARDIAC: RRR ABDOMEN: Soft, nondistended, cholecystostomy tube patent and draining dark brown fluid, bowel sounds are hypoactive. Rectal bag with liquid brown stool EXTREMITIES: 2-3+ edema at bilateral upper and lower extremities SKIN: No rashes or jaundice. 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 (Danica Shipley [facility]) Assessment and Plan Plan ASSESSMENT: - Biliary obstruction. MRCP(12/15/16)---> Multiple filling defects in serjio common bile duct down to the ampulla, cholecystomy tube catheter in place, no dilation of the pancreatic duct. T. Bili 2.2, AST 46, ALT 44, Alk. Phosph 252. Was scheduled for ERCP yesterday, but patient refused. SHe has since been extubated and is oriented to self and place. D/W patient rationale for ERCP along with risks and benefits. She is adamantly refusing. - Cholecystitis. CT scan abdomen and pelvis without iv contrast (12/02/16)---> No evidence of acute abdominal or pelvic process. No masses are identified. Cholelithiasis. Left lower lobe atelectasis versus pneumonia, a large hiatal hernia is present, diverticulosis without evidence of diverticulitis. Liver US (12/02/16)---> Cholelithiasis with wall thickening and trace pericholecystic fluid, no evidence of biliary duct distention, no other significant abnormality. Bacteremia with multiple organisms. GS following, s/p cholecystomy tube 12/03. S/P Cholangiogram- tube in good position, continued occlusion of the cystic duct. The gallbladder lumen was irrigated and accordion device was placed. Cholecystomy tube patent. MRCP (12/15/16)--1. Multiple filling defects in the common bile duct down to the ampulla 2. Cholecystostomy catheter in place. 3. No dilation of the pancreatic duct. Zosyn Levaquin. - FEN/Malnutrition. Nurse was unable to place OGT (would not advance). Attempt at NGT/Dobbhoff was unsuccessful. S/P EGD with OGT placement (12/07/16)----> Hiatal hernia. Successful OG tube placement. Pt was extubated Will get swallow evaluation and advance to low fat diet as tolerated. - Thrombocytopenia, Coagulopathy. S/P 2 units of FFP. HIT negative - Elevated LFTs. No evidence of biliary duct obstruction. No evidence of pancreatitis or dilated ducts on imaging. Unclear if this is all cholecystis, or passed stone, or possible ETOH and cholecystitis. S/P Cholecystomy tube. Hepatitis profile negative, HERBER negative, AMA <20.0, ASMA neg, Iron saturation 2.7%, Ferritin 306, ALpha 1 antitrypsin 209, Ceruloplasmin 32, AFP. Improved. MRCP as above. Refusing ercp. - Severe sepsis with multisystem failure. BCx from 12/02/16 grew enterobacter species, klebsiella pneumoniae, escherichia coli, and GNR in the anaerobic bottle. Bile cx Group D Enterococcus. Sputum Cx E. Coli. Rpt urine, sputum, blood culture pending. Zosyn, Levaquin. WBC 15.5 - Anemia. S/P 2 units PRBC. 9.4/28.0 - Abdominal pain, nausea, decreased appetite. Improved - ARF with severe electrolyte abnormalities. S/P CVVHD, now transitioned to HD. Per nephrology - Resp. Failure/PNA. CXR LLL atelectasis vs. pna, resolving right basilar atelectasis. Cx E. Coli. Still lethargic, but is following commands today. - Chronic back pain r/t scoliosis. Uses medical marijuana via vaping and takes 4 shots of scotch per day to help with her pain control. Last had these 2 weeks ago. - CAD, Hx HTN, Hyperlipidemia per attending. PLAN: - Refusing ERCP - Swallow evaluation - Clear liquids, advance to low fat diet as tolerated - Cont. Abx - Monitor labs - Palliative care to meet with patient this am - Supportive care - S/P Cholecystomy tube placement by IR (12/03), s/p cholangiogram (12/14), cystic duct occluded. Drain patent. - Further recommendations to follow based on results of above. - Patient seen and examined by Dr. Lama and myself and this note is written on her behalf (Danica Shipley) Danica Shipley Dec 18, 2016 07:54 Rachell Lama MD Dec 18, 2016 19:31
[2016-12-18] MEDS: CHLORHEXIDINE 0.12% (ORAL KIT) 15 ML CUP MT SCH (08:00)
[2016-12-18] MEDS: SODIUM CHLORIDE 0.9% FLUSH 10 ML FLUSH IV FLUSH SCH ×2 (09:00)
[2016-12-18] MEDS: DOCUSATE SODIUM 50 MG/SENNA 8.6 MG TAB PO SCH (09:00)
[2016-12-18] MEDS: FAMOTIDINE 20 MG/2 ML VIAL IV PUSH SCH (09:00)
--- NOTE | 2016-12-18 09:38 | HHI.CCPN ---
Subjective Remarks/Hospital Course This is a 71-year-old female presents to the ED via EMS for evaluation of fever , shortness breath, vomiting, diarrhea, abdominal pain She reports that she's been short of breath for the past 2 weeks, but has progressed in the past 2 days. Patient has been seeing a chemistry lab instructor for her shortness of breath, is not on home oxygen. The patient reported she has a history of smoking. She is also complaining of abdominal pain that started 2 days ago with vomiting and diarrhea. Patient has severe tenderness to mild palpation. She has history of MA. She received 500 mL normal saline IV bolus, and Zofran 4 mg IV. Critical care medicine was consulted. Subjective: 12/03: Tmax 100.9. Last evening the patient was noted to have significant respiratory decompensation with requirement for emergent intubation. The patient subsequently became hemodynamically unstable requiring vasopressor support. Patient is lightly sedated, and continues to have abdominal pain, and hypoactive bowel sounds, GI has been consulted. HIDA scan previously scheduled for this morning, after discussion with Dr Goodrich , plan for cholecystostomy tube placement by IR. Ultrasound liver showed no biliary duct distention but notable thickened gallbladder wall. 12/04: Tmax 100.4. Patient continues with severe metabolic acidosis, sodium bicarbonate infusion increased to 150 cc/hour yesterday afternoon. Antibiotics were expanded yesterday with addition of Micafungin and Diflucan. Blood cultures resulted with Enterobacter, Klebsiella pneumoniae and Escherichia coli. ID consulted recommendations appreciated. Patient is status post placement of percutaneous cholecystostomy tube . Patient now icteric, but LFTs are trending down. Records obtained from primary care physician with cardiology reports from earlier in the year, patient with noted pulmonary hypertension and NYHA class III. In-hospital echo pending. Patient continues on 3 pressors to maintain blood pressure. 12/05: Patient has been weaned off of vasopressor continues on to agents Gurinder- Synephrine, norepinephrine at low doses. Patient noted to still be thrombocytopenic platelet count decreased today HIT panel pending. INR remains elevated no active signs of bleeding liver function enzymes remain elevated. No urine output over the last 12 hours nephrology following discussion with for possible hemodialysis, will await nephrology recommendations. Sodium bicarbonate infusion discontinued. Patient remains alert GCS 11 T. 12/06: Afebrile. The patient continues on CRRT initiated last night, tolerating it well patient continues only on phenylephrine infusion to maintain MAP. The patient received 2 units of FFP per hematology/oncology recommendations. 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 12/07: Afebrile. Vasopressors discontinued at 4 AM, CRRT completed, patient will be transitioned to IHD 2 times a week. Patient was noted to be severely thrombocytopenic platelet count 32 ,plan for transfusions of platelets, fibrinogen level decreasing. Bile specimen noted to result Enterococcus faecalis, contacted Dr. Portillo general surgery updated him discussion regarding elective versus semielective laparoscopic cholecystectomy ,informed that no surgical intervention indicated at this time. Cholecystostomy tube continues to drain. 12/08: Afebrile. The patient has been transitioned to IHD 2 times a week. 3 L removal of fluid today. The patient remains hemodynamically stable off of all vasopressors greater than 24 hours at this time. A chin continues to have persistent leukocytosis with elevation in WBC count and downward trend up fibrinogen level . Cholecystostomy tube low output, CT scan abdomen pending. General surgery reconsulted to review surgical options for patient. 12/09 Patient is sedated with Fentanyl and intubated. s/p HD yesterday with removal 3L. NPO for possible OR today. 12/10 No events overnight. Sedated with Fentanyl and intubated. Afebrile. 12/11 Patient remains intubated and sedated with Fentanyl. Tolerated CPAP trials for 4 hrs yesterday. For HD today. Afebrile however her WBC increased 37 from 33. Moves spontaneously but does not follow commands. 12/12 Patient went into afib with RVR placed on Cardizem drip now at 5mg/hr on CPAP with PS 10, PEEP:5 and FIO2 35%. Afebrile. WBC is trending down. 12/13 No events overnight. For HD today. s/p transfusion 1unit PRBC yesterday. Afebrile. Seems more alert today. 12/14 Patient is sedated and intubated. s/p HD yesterday with removal 2L. 12/15 Off pressors. Still with anasarca, HD today with removal of 3 L. CPAP 11/22 all day with RSBI in 30s. Sedation on hold all day and she is now tracking and lifts head off pillow to command. Very minimal movement of fingers bilaterally and strength 2/5 L leg, 1/5 R leg Subjective: 12/16 Remains off vasopressors. Tolerated CPAP 11/22 yesterday. Continuing daily pressure support ventilation. MRCP resulted with multiple filling defects of common bile duct. Discussed with Dr. Portillo and will reconsult gastroenterology regarding ERCP. She is more alert off sedation, quadriparetic. Multiple risk factors for critical illness polyneuropathy. Prior anterior cervical fusion and osteophyte with flattening of cord C3/C4 hypertrophic ridge with anterior cord flattening at C4/C5 so will obtain neurosurgical opinion. She is more alert today and has remained off continuous sedation for 24 hours. MRI brain negative. Overall condition discussed with her . 12/17: Tolerating CPAP, plan is for ERCP today btw 1-2. Remains quadriparetic, but follows commands x4. Neurosurgery consult appreciated -no evidence of cord compression or spinal cord ischemia. 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 I have requested neurology consult 12/18: Patient was extubated yesterday. Tolerating well respiratory horton. Refused ERCP procedure. Patient is refusing any more invasive procedures, and even hemodialysis. "enough treatment". Patient understands the consequences of refusing hemodialysis including . She appears competent in my opinion to make medical decisions. I have conveyed this to her Objective Vital Signs Date Time Temp Pulse Resp B/P (MAP) Pulse Ox O2 Delivery O2 Flow Rate FiO2 12/18/16 07:00 97 Nasal Cannula 4.00 12/18/16 06:00 108 12/18/16 04:00 18 133/64 (87) 12/17/16 16:00 97.9 12/17/16 12:02 35 Intake and Output 12/18/16 12/18/16 12/19/16 08:00 16:00 00:00 Intake Total 0 ml Output Total 680 ml Balance -680 ml Result Diagram: 12/17/16 0420 12/17/16 0420 Other Results Laboratory Tests Test 12/17/16 15:56 Blood Gas Puncture Site RT RADIAL Blood Gas Patient Temperature 98.6 Blood Gas HCO3 24 mmol/L (22-26) Blood Gas Base Excess 1.0 mmol/L (-2-2) Blood Gas Oxygen Saturation 94 % (90-100) Arterial Blood pH 7.48 (7.380-7.420) Arterial Blood Partial Pressure CO2 33 mmHg (38-42) Arterial Blood Partial Pressure O2 84 mmHg (61-120) Arterial Blood Oxygen Content 12.7 Vol % (12.0-20.0) Arterial Blood Carboxyhemoglobin 2.1 % (0-4) Arterial Blood Methemoglobin 1.3 % (0-2) Blood Gas Hemoglobin 9.6 G/DL (12.0-16.0) Oxygen Delivery Device VENTILATOR Blood Gas Ventilator Setting CPAP Blood Gas Inspired Oxygen 35 % Imaging Last Impressions Catheter Placement X-Ray 12/13/16 0000 Signed Impressions: Service Date/Time: November 14:14 - CONCLUSION: Uncomplicated line placement as above. Nain Sharma Jr., MD Head CT 12/11/16 0000 Signed Impressions: Service Date/Time: Sunday, December 11, 2016 17:09 - CONCLUSION: 1. Minimal chronic sinusitis in the sphenoid sinuses bilaterally. 2. Bilateral acute mastoiditis. 3. Otherwise negative. Anatomic detail is somewhat limited due to motion artifact, however. Jamel Johns MD Chest CT 12/11/16 0000 Signed Impressions: Service Date/Time: Sunday, December 11, 2016 17:15 - CONCLUSION: Small bibasilar consolidation and/or compressive collapse and bilateral pleural effusions. Kristen Deleon MD Abdomen/Pelvis CT 12/11/16 0000 Signed Impressions: Service Date/Time: Sunday, December 11, 2016 17:15 - CONCLUSION: 1. Cholecystostomy tube in place with decrease in the amount of hyperdensity within the lumen. 2. Persistent bilateral pleural effusions, stable. Persistent free fluid in the pelvis, slightly decreased. 3. Increase in the amount of induration of the lateral abdominal wall and pelvic subcutaneous tissues an increase swelling of the lateral musculature Nain Mejia MD Chest X-Ray 12/09/16 0600 Signed Impressions: Service Date/Time: Friday, December 09, 2016 04:06 - CONCLUSION: 1. Interval placement of nasogastric tube. 2. Bibasal opacities remain. Josef Luther MD Abdomen X-Ray 12/09/16 0000 Signed Impressions: Service Date/Time: Friday, December 09, 2016 12:19 - CONCLUSION: OG tube tip in the distal stomach. Fermin Wills MD Abdomen CT 12/08/16 0000 Signed Impressions: Service Date/Time: Thursday, December 08, 2016 17:52 - CONCLUSION: 1. Cholecystostomy tube in good position. Nain Sharma Jr., MD Percutaneous Cholangiogram 12/03/16 0000 Signed Impressions: Service Date/Time: Saturday, December 03, 2016 14:31 - CONCLUSION: Uncomplicated percutaneous cholecystostomy as above. Nain Sharma Jr., MD Liver Ultrasound 12/02/16 0000 Signed Impressions: Service Date/Time: Friday, December 02, 2016 19:12 - CONCLUSION: 1. Cholelithiasis with wall thickening and trace pericholecystic fluid. 2. No evidence of biliary duct distention. 3. No other significant abnormality. Jak Hughes MD Objective Remarks GENERAL: Chronically Critically ill appearing female who is on NC SKIN: Warm and dry. HEAD: Atraumatic. Normocephalic. EYES: Pupils equal and round, pinpoint and sluggishly reactive bilaterally. No injection or drainage. Extraocular movements intact ENT: No nasal bleeding or discharge. Mucous membranes pink and moist. NECK: Trachea midline. No JVD. CARDIOVASCULAR: Normal rate, regular rhythm. No mrg. RESPIRATORY: No accessory muscle use. Clear to auscultation. Breath sounds equal bilaterally. GASTROINTESTINAL: Abdomen soft,nondistended, no guarding. Cholecystostomy tube draining dark brown fluid. Tolerating tube feeds. MUSCULOSKELETAL: Extremities without clubbing, cyanosis. 2-3+ edema of all extremities. VASC: RIJ VAscath in place with no drainage. NEUROLOGICAL: Eyes open, tracks. 4/5 power in upper and lower extremities Procedures 12/02-abdominal ultrasound 12/03- percutaneous cholecystostomy tube placement 12/05-patient of CRRT, completion 12/07 12/08-initiation of IHD Date of Insertion: Dec 02, 2016 Line: Central Venous Catheter Side: Left Location: Femoral A/P Problem List: (1) Septic shock ICD Code: A41.9 - Sepsis, unspecified organism; R65.21 - Severe sepsis with septic shock Status: Resolved Assessment and Plan ASSESSMENT Functional quadriparesis Diverticulitis Cholelithiasis with cholecystitis Transaminitis Hiatal hernia Nausea Hyperlipidemia Hypertension History of MA Coronary artery disease-S/P angioplasty 2 History of systolic CHF Acute hypoxemic respiratory failure Probable community-acquired pneumonia Hypokalemia Alcohol use disorder Elevated creatinine Pancytopenia Transaminitis Acute renal failure Multisystem organ failure secondary to septic shock Acute decompensated systolic heart failure Coagulopathy Bandemia Persistent leukocytosis Critical illness polyneuropathy PLAN Neurologic: Functional Quadriparesis, improving Probable Critical illness polyneuropathy. Scoliosis h/o anterior cervical discectomy and fusion. Acute encephalopathy, secondary to sepsis, improved. CT brain: Minimal chronic sinusitis in the sphenoid sinuses bilaterally. Bilateral acute mastoiditis. Otherwise negative EEG 12/13 : Suboptimal study due to a lot of artifact. Study consistent with encephalopathic process. No epileptic activity. More awake and alert following commands, with evidence mild quadriparesis, slowly but definitely improving MRI brain 12/15 no acute hemorrhage/mass infarct. MRI Cspine report - flattening of anterior cord C3-C5. Dr Jean states no significant cord impingement or signal changes and symptoms more likely related to critical illness polyneuropathy. s/p folate and MVI, thiamine. Neurology Dr. Mullen Respiratory: Acute respiratory failure Extubated 12/17/16. Now DNR/DNI per patient request Discussed that it is possible that she will not be capacitated for medical decision-making when she is extubated and he expresses understanding. 12/02-intubation 7.5 ETT, now extubated CT chest: Small bibasilar consolidation Cardiovascular: On PO Cardizem 60mg Q6-Monitor HR and BP keep MAP>65mmHg Taper steroids- Decreased HC 25 q12, stop on 12/19/16 Initial troponin 0.07->0.11->0.49. Possibly secondary to acute Kidney injury, and low-flow cardiac output state 12/04 echo results-EF 50% Patient's being seen regularly by research/program director in [place] Shanda MD Echo 10/03/15 per cardiology medical records([place])-normal LV function,EF 56%, mild septal LVH, mild TR, mild PAH Patient's home meds include ASA 81mg, Metoprolol 50 mg ER (recently discontinued secondary to hypotension by research/program director 3 weeks ago) will not restart secondary to hemodynamic instability, Rosvustatin at this time will not continue secondary to elevated LFT's continue to trend. NYHA classification III-per previous records Renal CKD stage III prior to admission, now on hemodialysis CRRT initiated 12/05, CRRT discontinued 12/07 HD inititated 12/08 Now on IHD per nephrology with last treatment 12/15 . Nephrology following-Dr. Carlos, FEN/GI: Cholelithiasis, cholecystitis, cholangitis CBD obstruction/possible choledocholithiasis Patient refused ERCP. CT abd/pelvis: Cholecystostomy tube in place with decrease in the amount of hyperdensity within the lumen. Persistent bilateral pleural effusions, stable. Persistent free fluid in the pelvis, slightly decreased. Increase in the amount of induration of the lateral abdominal wall and pelvic subcutaneous tissues an increase swelling of the lateral musculature 12/02 CT abdomen pelvis-diverticulosis without diverticulitis, large hiatal hernia, cholelithiasis, no acute process ultrasound abdomen-no biliary duct dilatation, cholelithiasis with cholecystitis trace pericholecystic fluid 12/03- percutaneous cholecystostomy drain placement percutaneous cholecystostomy draining (Bile- Enterococcus faecalis)- monitor drainage 12/[address] Pathak bile fluid-Enterococcus faecalis-no surgical intervention at this time, plan for tentative semi-elective versus elective cholecystectomy in the future (patient is refusing any invasive treatment now) 12/08 general surgery reconsulted to review surgical options-GI signed off . Discussed with Dr Portillo 12/15 who recommends further evaluation for CBD obstruction. Obtained MRCP. MRCP with multiple filling defects of common bile duct. Gastroenterology- ERCP refused by patient ID: ID is following-Dr. Ramos, abx per ID (Zosyn 12/07-, Levaquin 12/07- ) 12/09 Sputum cx: S. Maltophilia, Mold species. Follow up on sputum cx from 12/12 -S. Maltophilia 12/09 Pancultured- BC, Urine-NGTD 12/03 blood cultures-Enterobacter, Klebsiella pneumoniae, Escherichia coli 12/03 Legionella, influenza , pneumococcal antigen- negative 12/03 sputum culture-E coli 12/03: Bile fluid-Enterococcus faecalis HEME Pancytopenia secondary to sepsis. Hematology oncology following 12/05 HIT panel-negative. 12/06 2 units of FFP per hematology recommendations 12/07 transfuse 2 units of platelets 12/08-fibrinogen level Downward trend 392->213-> 165- transfuse 1 unit of cryoprecipitate Monitor CBC, s/p transfusion 1unit PRBC 12/12 Transfusion 1 unit PRBC 12/16 per hematology. Endocrine: Glucose monitoring per ICU protocol -SSI Steroid taper off as per above MSK: PT/OT following Prophylaxis: GI Prophylaxis Famotidine DVT Prophylaxis -- SCDs Heparin 5000 SQ BID (on Hold) in the setting of thrombocytopenia Lines: Central line left IJ placed 12/02. Central access is not required. Vasc access obtained ultrasound guided PIV. D/c CVL. Right IJ vascath placed 12/[address] Chiu note: Palliative care is following. ALT CODE. Extensive discussion with . He shares she is weak and debilitated at baseline due to scoliosis. thinks she might not want trach. He would like to discuss this with her if possible and I would advocate trial of extubation based on her CPAP performance. However, she is extremely weak and this may ultimately result in reintubation, which understands. Also it is possible she will not be capacitated for MDM upon extubation, which also understands. At this point, will continue daily PSV to help mitigate respiratory muscle weakness.Tapering steroids off. Awaiting GI plan regarding ERCP. 12/18/16: I had had extensive discussion with the patient in the presence of RN Quynh. She refuses any further invasive treatments. Patient appears competent to make these decisions and she understands the consequences of refusing treatment including Level 2 Consult Hospitalist to assume care in am Transfer to Med Surg with TELE June Christensen MD Dec 18, 2016 09:38
--- NOTE | 2016-12-18 11:36 | HHI.NPPN ---
Subjective History of Present Illness 71 year old with septic shock, ARF Additional Remarks Patient was extubated yesterday refusing further treatment Objective Data Data Vital Signs Date Time Temp Pulse Resp B/P (MAP) Pulse Ox O2 Delivery O2 Flow Rate FiO2 12/18/16 07:00 97 Nasal Cannula 4.00 12/18/16 06:00 108 12/18/16 04:00 102 12/18/16 04:00 108 18 133/64 (87) 98 12/18/16 02:00 165 12/18/16 00:00 166 18 141/70 (93) 97 12/18/16 00:00 165 12/17/16 23:00 179 12/17/16 22:00 115 12/17/16 20:00 104 22 155/72 (99) 95 12/17/16 20:00 104 12/17/16 19:16 97 Nasal Cannula 4.00 12/17/16 18:00 96 21 148/75 (99) 97 12/17/16 17:00 94 21 157/76 (103) 97 12/17/16 16:30 97 Nasal Cannula 4 12/17/16 16:30 97 Nasal Cannula 4.00 12/17/16 16:00 97.9 98 19 147/82 (103) 98 12/17/16 15:00 96 14 142/70 (94) 97 12/17/16 14:00 84 15 149/74 (99) 97 12/17/16 13:00 79 16 148/76 (100) 96 12/17/16 12:02 99 35 12/17/16 12:00 98.3 90 21 165/71 (102) 96 12/17/16 12:00 35 -: 12/17/16 0420 12/17/16 0420 Physical Exam General Appearance: Well Developed Neck Neck Exam: Neck Supple Pulmonary Resp Exam: Clear Bilaterally Cardiology CV Exam: Regular Gastrointestinal/Abdomen GI Exam: Soft, Bowel Sounds Present, Non-Distended Integumentary Skin Exam: Clear Extremeties Extremities Exam: Moderate Edema Assessment/Plan Problem List: (1) Acute kidney injury ICD Codes: N17.9 - Acute kidney failure, unspecified Status: Acute Plan: Patient has septic shock and acute tubular necrosis making small amount of urine, Continue supportive care Continue to monitor avoid Nephrotoxins. extubated refused dialysis UOP 1150 cc improved may resolve ARF follow BMP (2) Acute cholecystitis ICD Codes: K81.0 - Acute cholecystitis Plan: Status post cholecystostomy (3) Sepsis ICD Codes: A41.9 - Sepsis, unspecified organism Status: Acute Plan: On antibiotics Problem Qualifiers (1) Sepsis: Qualified Codes: A41.9 - Sepsis, unspecified organism Myrtle Carlos MD Dec 18, 2016 11:36
--- NOTE | 2016-12-18 11:38 | HHI.HCPN ---
Reason for visit a. To assist with evaluation and management of symptoms including: dyspnea, pain, and debility b. To assist medical decision maker(s) with: better understanding of current medical conditions; weighing benefits/burdens of medical treatment options; making medical treatment decisions. . (Kallie Miranda) Subjective/Interval History Patient examined today dual visit with Dr. Lopez to follow up regarding goals of care and to assess patient's ability to make informed medical decisions independently as she has been refusing treatment since yesterday afternoon. At the time of exam patient is oriented to self and to place, however she was lethargic and had recently been administered pain medication shortly before our arrival. At this point in time it is suggested that shared decision making in conjunction with her is utilized. The palliative care team will again follow up this afternoon to assess the patient's ability to make informed medical decisions independently. Family/friend interactions Beside meeting with patient and her . Discussion with patient's regarding code status, he stated that per previous conversations and per his 's living will it would be in line with her values and in her current condition to change her code status to a DNR. (Kallie Miranda) Subjective/Interval History Pt is alert and oriented to person, and place. She demonstrate cognition, able to answer question correctly "On a clear cecilia day is the kendal is blue?" She said yes. Is grass normally pink in color "no." She is able to identify correctly her . Able to relate where she is from. She is able to demonstrate insight to her medical condition, able to say she came in with infection and multiorgan failure (sepsis). She understands if she does not get dialysis, abx, other medical treatment she will decline, and past away. Since extubation she has been constantly been telling physician and nurses, she does not want further medical care, in terms of dialysis, antibiotics. Her goals remain the same with me, this afternoon, and she said "I want this to stop.... I just want to go home." I feel she has capacity to make medical decision. Pt's spouse who was at bedside, supports patient's decision. Hospice will be consulted. Family/friend interactions see above. (Lavelle Lopez MD) Advance Directives Living Will: Copy in medical record Health Care Surrogate: Copy in medical record Durable Power of Manager Research Development: Copy in medical record (Kallie Miranda) Advance Directive Specifics Date completed: 01/04/15 . Health Care Surrogate(s): Marco Antonio Flores () Alternate HCS: Alvin Flores or Pippa Flores . Documented care wishes: Standard living will [place], patient documented she would not want life prolonging measures if she had a terminal condition or was in a persistent vegetative state. . (Kallie Miranda) Objective Vital Signs Date Time Temp Pulse Resp B/P (MAP) Pulse Ox O2 Delivery O2 Flow Rate FiO2 12/18/16 07:00 97 Nasal Cannula 4.00 12/18/16 06:00 108 12/18/16 04:00 102 12/18/16 04:00 108 18 133/64 (87) 98 12/18/16 02:00 165 12/18/16 00:00 166 18 141/70 (93) 97 12/18/16 00:00 165 12/17/16 23:00 179 12/17/16 22:00 115 12/17/16 20:00 104 22 155/72 (99) 95 12/17/16 20:00 104 12/17/16 19:16 97 Nasal Cannula 4.00 12/17/16 18:00 96 21 148/75 (99) 97 12/17/16 17:00 94 21 157/76 (103) 97 12/17/16 16:30 97 Nasal Cannula 4 12/17/16 16:30 97 Nasal Cannula 4.00 12/17/16 16:00 97.9 98 19 147/82 (103) 98 12/17/16 15:00 96 14 142/70 (94) 97 12/17/16 14:00 84 15 149/74 (99) 97 12/17/16 13:00 79 16 148/76 (100) 96 12/17/16 12:02 99 35 12/17/16 12:00 98.3 90 21 165/71 (102) 96 12/17/16 12:00 35 Intake & Output 12/18/16 12/18/16 07:00 19:00 Intake Total 0 ml Output Total 1305 ml Balance -1305 ml Intake Oral 0 ml Output Urine Total 1150 ml Stool Total 50 ml Drainage Total 105 ml Physical Exam CONSTITUTIONAL/GENERAL: This is am elderly frail female patient who was extubated yesterday TUBES/LINES/DRAINS: RIJ vas cath, PIV x 2, cholecystomy tube, palacios catheter SKIN: No jaundice, rashes, or lesions. Ecchymoses on upper extremities. Skin temperature appropriate. Large wound on LUE, covered with bandage, weeping. Not diaphoretic. CARDIOVASCULAR: Regular rate and rhythm without murmurs, gallops, or rubs. Peripheral pulses symmetric. RESPIRATORY/CHEST: Symmetric. Clear to auscultation. Breath sounds equal bilaterally. No wheezes, rales, or rhonchi. GASTROINTESTINAL: Abdomen soft, nontender, nondistended. Hypoactive bowel sounds present. GENITOURINARY: Without palpable bladder distension. Palacios catheter in place. MUSCULOSKELETAL: Extremities without clubbing, cyanosis. No mottling or clubbing. NEUROLOGICAL: Lethargic. Oriented to self and to place. Whispers words softly. Follows commands. PSYCHIATRIC: Unable to assess secondary to lethargy and minimal participation during exam. (Ruben,Kallie SOLIS) Diagnostic Tests Laboratory Laboratory Tests Test 12/16/16 05:20 12/16/16 07:40 12/16/16 20:32 12/17/16 04:20 White Blood Count 12.5 TH/MM3 (4.0-11.0) 14.7 TH/MM3 (4.0-11.0) 15.5 TH/MM3 (4.0-11.0) Red Blood Count 2.16 MIL/MM3 (4.00-5.30) 2.38 MIL/MM3 (4.00-5.30) 3.15 MIL/MM3 (4.00-5.30) Hemoglobin 6.5 GM/DL (11.6-15.3) 7.2 GM/DL (11.6-15.3) 9.1 GM/DL (11.6-15.3) 9.4 GM/DL (11.6-15.3) Hematocrit 19.8 % (35.0-46.0) 21.8 % (35.0-46.0) 26.5 % (35.0-46.0) 28.0 % (35.0-46.0) Mean Corpuscular Volume 92.0 FL (80.0-100.0) 91.8 FL (80.0-100.0) 89.0 FL (80.0-100.0) Mean Corpuscular Hemoglobin 30.3 PG (27.0-34.0) 30.1 PG (27.0-34.0) 29.9 PG (27.0-34.0) Mean Corpuscular Hemoglobin Concent 33.0 % (32.0-36.0) 32.8 % (32.0-36.0) 33.6 % (32.0-36.0) Red Cell Distribution Width 16.3 % (11.6-17.2) 17.1 % (11.6-17.2) 17.6 % (11.6-17.2) Platelet Count 48 TH/MM3 (150-450) 58 TH/MM3 (150-450) 59 TH/MM3 (150-450) Mean Platelet Volume 10.0 FL (7.0-11.0) 10.4 FL (7.0-11.0) 9.8 FL (7.0-11.0) Neutrophils (%) (Auto) 91.6 % (16.0-70.0) 93.9 % (16.0-70.0) Lymphocytes (%) (Auto) 2.4 % (9.0-44.0) 2.4 % (9.0-44.0) Monocytes (%) (Auto) 5.9 % (0.0-8.0) 3.5 % (0.0-8.0) Eosinophils (%) (Auto) 0.0 % (0.0-4.0) 0.0 % (0.0-4.0) Basophils (%) (Auto) 0.1 % (0.0-2.0) 0.2 % (0.0-2.0) Neutrophils # (Auto) 11.5 TH/MM3 (1.8-7.7) 14.6 TH/MM3 (1.8-7.7) Lymphocytes # (Auto) 0.3 TH/MM3 (1.0-4.8) 0.4 TH/MM3 (1.0-4.8) Monocytes # (Auto) 0.7 TH/MM3 (0-0.9) 0.5 TH/MM3 (0-0.9) Eosinophils # (Auto) 0.0 TH/MM3 (0-0.4) 0.0 TH/MM3 (0-0.4) Basophils # (Auto) 0.0 TH/MM3 (0-0.2) 0.0 TH/MM3 (0-0.2) CBC Comment AUTO DIFF AUTO DIFF Differential Comment AUTO DIFF CONFIRMED AUTO DIFF CONFIRMED Platelet Estimate LOW (NORMAL) LOW (NORMAL) Platelet Morphology Comment NORMAL (NORMAL) NORMAL (NORMAL) Polychromasia 2.0 % (0.0-1.9) Basophilic Stippling FAINT (NORMAL) Acanthocytes OCC (NORMAL) OCC (NORMAL) Prothrombin Time 12.7 SEC (9.8-11.6) 11.8 SEC (9.8-11.6) Prothromb Time International Ratio 1.1 RATIO 1.1 RATIO Activated Partial Thromboplast Time 29.3 SEC (24.3-30.1) 26.4 SEC (24.3-30.1) Fibrinogen 218 mg/dL (227-377) 328 mg/dL (227-377) Blood Urea Nitrogen 66 MG/DL (7-18) 66 MG/DL (7-18) 78 MG/DL (7-18) Creatinine 3.47 MG/DL (0.50-1.00) 3.48 MG/DL (0.50-1.00) 3.94 MG/DL (0.50-1.00) Random Glucose 212 MG/DL (74-106) 203 MG/DL (74-106) 162 MG/DL (74-106) Total Protein 4.8 GM/DL (6.4-8.2) 5.2 GM/DL (6.4-8.2) 5.4 GM/DL (6.4-8.2) Albumin 2.1 GM/DL (3.4-5.0) 2.3 GM/DL (3.4-5.0) 2.0 GM/DL (3.4-5.0) Calcium Level 8.0 MG/DL (8.5-10.1) 8.2 MG/DL (8.5-10.1) 7.8 MG/DL (8.5-10.1) Alkaline Phosphatase 224 U/L (45-117) 244 U/L (45-117) 252 U/L (45-117) Aspartate Amino Transf (AST/SGOT) 40 U/L (15-37) 40 U/L (15-37) 46 U/L (15-37) Alanine Aminotransferase (ALT/SGPT) 46 U/L (10-53) 48 U/L (10-53) 44 U/L (10-53) Total Bilirubin 1.5 MG/DL (0.2-1.0) 1.7 MG/DL (0.2-1.0) 2.2 MG/DL (0.2-1.0) Sodium Level 139 MEQ/L (136-145) 140 MEQ/L (136-145) 139 MEQ/L (136-145) Potassium Level 2.8 MEQ/L (3.5-5.1) 2.7 MEQ/L (3.5-5.1) 3.5 MEQ/L (3.5-5.1) 3.4 MEQ/L (3.5-5.1) Chloride Level 98 MEQ/L (98-107) 99 MEQ/L (98-107) 101 MEQ/L (98-107) Carbon Dioxide Level 25.9 MEQ/L (21.0-32.0) 26.3 MEQ/L (21.0-32.0) 23.0 MEQ/L (21.0-32.0) Anion Gap 15 MEQ/L (5-15) 15 MEQ/L (5-15) 15 MEQ/L (5-15) Estimat Glomerular Filtration Rate 13 ML/MIN (>89) 13 ML/MIN (>89) 11 ML/MIN (>89) Lipase 2052 U/L (73-393) Total Creatine Kinase 75 U/L (26-192) Vitamin B12 Level GREATER THAN 2000 PG/ML Test 12/17/16 15:56 Blood Gas Puncture Site RT RADIAL Blood Gas Patient Temperature 98.6 Blood Gas HCO3 24 mmol/L (22-26) Blood Gas Base Excess 1.0 mmol/L (-2-2) Blood Gas Oxygen Saturation 94 % (90-100) Arterial Blood pH 7.48 (7.380-7.420) Arterial Blood Partial Pressure CO2 33 mmHg (38-42) Arterial Blood Partial Pressure O2 84 mmHg (61-120) Arterial Blood Oxygen Content 12.7 Vol % (12.0-20.0) Arterial Blood Carboxyhemoglobin 2.1 % (0-4) Arterial Blood Methemoglobin 1.3 % (0-2) Blood Gas Hemoglobin 9.6 G/DL (12.0-16.0) Oxygen Delivery Device VENTILATOR Blood Gas Ventilator Setting CPAP Blood Gas Inspired Oxygen 35 % (Ruben,Kallie SOLIS) Result Diagram: 12/17/1641912/17/16419 Assessment and Plan Disease Oriented Problem List: (1) Sepsis (2) Metabolic acidosis (3) Acute cholecystitis (4) Respiratory failure Symptom Scale: (1) Dyspnea (2) Debility (3) Pain Pertinent Non-Medical Issues Psychosocial:Patient is originally from [place], [place], she has been to her for 56 years and has two children. 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 She retired in her early 60s when she began spending half of the year between [place] and [place]. Spiritual: Mandaen. Legal: None known. Ethical issues impacting care:None known. Important Contacts Marco Antonio Flores () [phone] . Prognosis Patient has experienced a physical and functional decline over the past two years. She has suffered from chronic back pain due to scoliosis and has recently drank daily heavily to alleviate the pain. The patient was admitted for sepsis followed by respiratory distress requiring intubation, she has continued to decline and has now progressed into multiorgan failure. She is at an increased risk for complications/setbacks due to her advanced age, multiple comorbidities, and current clinical status. . Code Status: No Code Plan * Legal decision maker: Patient currently does not have the capacity to make her own health care decisions secondary to lethargy. Suggested shared decision making with her /HCS at this time. Documented HCS is patient's Marco Antonio Flores [phone], alternate HCS are Alvin Flores or Pippa Flores. * CODE STATUS:DNR. * GOALS: Comfort oriented. Hospice consulted. * SYMPTOM MANAGEMENT: * --pain: Patient at ongoing risk for pain secondary to bedbound status and prolonged hospital stay. Roxicodone 10mg q 6 hours and 5mg q 6 hours PRN for pain ordered. No recommendations at this time, further recommendations pending hospital course. * --dyspnea: Patient was extubated yesterday, duonebs scheduled q 6hr and q 2hr PRN ordered. No recommendations at this time. * --debility: Secondary to current clinical status, bedbound status. PT/OT following and working with the patient. No recommendations at this time. * Palliative care will continue to follow during hospital course as condition evolves, to assist patient/family/decision-maker with understanding of medical conditions, weighing benefit/burdens of treatment options, for clarification of goals of treatment. Additionally will assist with symptoms of palliative concern. (Kallie Miranda) Code Status: No Code (Lavelle Lopez MD) Attestation To help prompt me to consider important information that might be impacting today's encounter and assessment, information from prior notes written by myself or my colleagues may have been "brought forward" into today's note. My signature on this note, however, is an attestation that I personally performed the exam, history, and/or decision-making noted today, and, unless otherwise indicated, the interactions with patient, family, and staff as well as the review of records all occurred today. I also attest that the listed assessment and stated plan reflect my best clinical judgment today based on the combination of historical information, prior notes, and today's exam/ interactions. When time spent is documented, it refers only to time spent today by the signer, or if indicated, combined time spent today by collaborating physician/nurse practitioner. (Kallie Miranda) Collaborating MD Comments I feel she has capacity to make medical decision. Pt's spouse who was at bedside, supports patient's decision. Hospice will be consulted. Goal is for hospice to hospice transfer back up to [place]. understand that there is a possibility pt could not make it back up to [place], and past away in [place] while on hospice. If that happens, he is realistic and supportive to just keep her comfortable. She has decline any further antibiotic therapy. d/w with IRMA agree with assessment and plan. (Lavelle Lopez MD) Kallie Miranda Dec 18, 2016 11:38 Lavelle Lopez MD Dec 18, 2016 15:01
--- NOTE | 2016-12-18 11:59 | HHI.IDPN ---
Subjective Subjective Remarks pt is extubated She is refusing further tretment including abx and stone extraction pt is afebrile WBC still up Antibiotics zosyn' levaquine Allergies: Coded Allergies: No Known Allergies (Unverified , 12/02/16) Objective . Vital Signs Date Time Temp Pulse Resp B/P (MAP) Pulse Ox O2 Delivery O2 Flow Rate FiO2 12/18/16 07:00 97 Nasal Cannula 4.00 12/18/16 06:00 108 12/18/16 04:00 102 12/18/16 04:00 108 18 133/64 (87) 98 12/18/16 02:00 165 12/18/16 00:00 166 18 141/70 (93) 97 12/18/16 00:00 165 12/17/16 23:00 179 12/17/16 22:00 115 12/17/16 20:00 104 22 155/72 (99) 95 12/17/16 20:00 104 12/17/16 19:16 97 Nasal Cannula 4.00 12/17/16 18:00 96 21 148/75 (99) 97 12/17/16 17:00 94 21 157/76 (103) 97 12/17/16 16:30 97 Nasal Cannula 4 12/17/16 16:30 97 Nasal Cannula 4.00 12/17/16 16:00 97.9 98 19 147/82 (103) 98 12/17/16 15:00 96 14 142/70 (94) 97 12/17/16 14:00 84 15 149/74 (99) 97 12/17/16 13:00 79 16 148/76 (100) 96 12/17/16 12:02 99 35 12/17/16 12:00 98.3 90 21 165/71 (102) 96 12/17/16 12:00 35 . Laboratory Tests Test 12/16/16 20:32 12/17/16 04:20 Hemoglobin 9.1 GM/DL 9.4 GM/DL Hematocrit 26.5 % 28.0 % White Blood Count 15.5 TH/MM3 Red Blood Count 3.15 MIL/MM3 Mean Corpuscular Volume 89.0 FL Mean Corpuscular Hemoglobin 29.9 PG Mean Corpuscular Hemoglobin Concent 33.6 % Red Cell Distribution Width 17.6 % Platelet Count 59 TH/MM3 Mean Platelet Volume 9.8 FL Neutrophils (%) (Auto) 93.9 % Lymphocytes (%) (Auto) 2.4 % Monocytes (%) (Auto) 3.5 % Eosinophils (%) (Auto) 0.0 % Basophils (%) (Auto) 0.2 % Neutrophils # (Auto) 14.6 TH/MM3 Lymphocytes # (Auto) 0.4 TH/MM3 Monocytes # (Auto) 0.5 TH/MM3 Eosinophils # (Auto) 0.0 TH/MM3 Basophils # (Auto) 0.0 TH/MM3 CBC Comment AUTO DIFF Differential Comment AUTO DIFF CONFIRMED Platelet Estimate LOW Platelet Morphology Comment NORMAL Acanthocytes OCC Laboratory Tests Test 12/16/16 20:32 12/17/16 04:20 Potassium Level 3.5 MEQ/L 3.4 MEQ/L Blood Urea Nitrogen 78 MG/DL Creatinine 3.94 MG/DL Random Glucose 162 MG/DL Total Protein 5.4 GM/DL Albumin 2.0 GM/DL Calcium Level 7.8 MG/DL Alkaline Phosphatase 252 U/L Aspartate Amino Transf (AST/SGOT) 46 U/L Alanine Aminotransferase (ALT/SGPT) 44 U/L Total Bilirubin 2.2 MG/DL Sodium Level 139 MEQ/L Chloride Level 101 MEQ/L Carbon Dioxide Level 23.0 MEQ/L Anion Gap 15 MEQ/L Estimat Glomerular Filtration Rate 11 ML/MIN Total Creatine Kinase 75 U/L Vitamin B12 Level GREATER THAN 2000 PG/ML Imaging Last Impressions Last Impressions Cholangiopancreatography MRI 12/15/16 0000 Signed Impressions: Service Date/Time: Thursday, December 15, 2016 17:40 - CONCLUSION: 1. Multiple filling defects in the common bile duct down to the ampulla.. 2. Cholecystostomy catheter in place. 3. No dilation of the pancreatic duct. Nain Mejia MD Chest X-Ray 12/15/16 0000 Signed Impressions: Service Date/Time: Thursday, December 15, 2016 04:03 - CONCLUSION: Slightly improved bibasilar consolidation. Fermin Rodriguez MD Cervical Spine MRI 12/15/16 0000 Signed Impressions: Service Date/Time: Thursday, December 15, 2016 17:40 - CONCLUSION: 1. Status post anterior multilevel fusion at the C4-C7 level. 2. Hypertrophic ridging is noted C4-5, C5-6 and C6-7 levels with mass effect on the anterior thecal sac. There is slight flattening of the anterior cord at C4-5. 3. Disc osteophyte complex at C3-4 with mild flattening the anterior cord. 4. Narrowing of the neural foramina bilaterally at the C3-4 through C5-6 level and on the right at C2-3 and on the left at C6-7. Josef Luther MD Brain MRI 12/15/16 Signed Impressions: Service Date/Time: Thursday, December 15, 2016 17:40 - CONCLUSION: Negative exam with no evidence of hemorrhage, mass or infarction. Josef Luther MD Cholangiogram 12/14/16 Signed Impressions: Service Date/Time: Wednesday, December 14, 2016 14:03 - CONCLUSION: 1. Cholecystostomy tube in good position. Continued occlusion of the cystic duct. The gallbladder lumen was irrigated and an accordion device placed on the cholecystostomy tube. Nain Sharma Jr., MD Catheter Placement X-Ray 12/13/16 Signed Impressions: Service Date/Time: November 14:14 - CONCLUSION: Uncomplicated line placement as above. Nain Sharma Jr., MD Head CT 12/11/16 Signed Impressions: Service Date/Time: Sunday, December 11, 2016 17:09 - CONCLUSION: 1. Minimal chronic sinusitis in the sphenoid sinuses bilaterally. 2. Bilateral acute mastoiditis. 3. Otherwise negative. Anatomic detail is somewhat limited due to motion artifact, however. Jamel Johns MD Chest CT 12/11/16 Signed Impressions: Service Date/Time: Sunday, December 11, 2016 17:15 - CONCLUSION: Small bibasilar consolidation and/or compressive collapse and bilateral pleural effusions. Kristen Deleon MD Abdomen/Pelvis CT 12/11/16 Signed Impressions: Service Date/Time: Sunday, December 11, 2016 17:15 - CONCLUSION: 1. Cholecystostomy tube in place with decrease in the amount of hyperdensity within the lumen. 2. Persistent bilateral pleural effusions, stable. Persistent free fluid in the pelvis, slightly decreased. 3. Increase in the amount of induration of the lateral abdominal wall and pelvic subcutaneous tissues an increase swelling of the lateral musculature Nain Mejia MD Abdomen X-Ray 10/22/17 0000 Signed Impressions: Service Date/Time: Friday, December 09, 2016 12:19 - CONCLUSION: OG tube tip in the distal stomach. Fermin Wills MD Abdomen CT 12/08/16 0000 Signed Impressions: Service Date/Time: Thursday, December 08, 2016 17:52 - CONCLUSION: 1. Cholecystostomy tube in good position. Nain Sharma Jr., MD Percutaneous Cholangiogram 12/03/16 0000 Signed Impressions: Service Date/Time: Saturday, December 03, 2016 14:31 - CONCLUSION: Uncomplicated percutaneous cholecystostomy as above. Nain Sharma Jr., MD Liver Ultrasound 12/02/16 0000 Signed Impressions: Service Date/Time: Friday, December 02, 2016 19:12 - CONCLUSION: 1. Cholelithiasis with wall thickening and trace pericholecystic fluid. 2. No evidence of biliary duct distention. 3. No other significant abnormality. Jak Hughes MD Physical Exam CONSTITUTIONAL/GENERAL: This is an adequately nourished patient, in no apparent distress. TUBES/LINES/DRAINS: biliary drain in place with small amount of brown bile SKIN: less jaundice, rashes, or lesions. . Skin temperature appropriate. Not diaphoretic. HEAD: Atraumatic. Normocephalic. EYES: Pupils equal and round and reactive. very mild scleral icterus. No injection or drainage. Fundi not examined. ENT: Hearing normal . Nose without bleeding or purulent drainage. NECK: Trachea midline. Supple, nontender. CARDIOVASCULAR: Regular rate and rhythm without murmurs, gallops, or rubs. No JVD. Peripheral pulses symmetric. well perfused RESPIRATORY/CHEST: Symmetric, unlabored respirations. clear to auscultation. Breath sounds equal bilaterally. No wheezes GASTROINTESTINAL: Abdomen soft, no reaction to papation + distended. No hepato- splenomegaly, or palpable masses. Biliary drain in place brown bile Dignishield in place - liquid dark stool GENITOURINARY: Without palpable bladder distension. Peterson catheter in place with small amount of cloudy urine MUSCULOSKELETAL: Extremities without clubbing, cyanosis, improved edema. No mottling or clubbing. NEUROLOGICAL: Awake alert com unicates appropietly PSYCHIATRIC: calm Assessment & Plan Remarks Billiary sepsis - resolving Multi-organ failure: acute VDRF: resolved, extubated ARF, on HD Hypotension, resolved, currently off pressors Gram negative sepsis - biliary Acute calculous cholecystitis sp cholecystostomy tube placement - growing enterococccus chirinos S and >=3 MIXED ENTERIC GRAM NEGATIVE RODS in the bile clx - not much drainage ? E.coli UTI vs colonisatrion ? PNA vs ARDS - growing E.coli in sputum R to zosyn - growing steno mal repeatedly - Now growing Steno malt, also S to levaquine Leukocytosis, leukemoid reaction - WBC trending up Fibrinogen trending up today, plts dwn likely DIC Mental status change resolved ABx associated diarrhea dc abx since the pt refused them; pt actually completed 14 days of abx by now chk stool for C.diff will see as needed case dw pt's @ @ b/s robyn Ramos,Jina Conde MD Dec 18, 2016 11:59
[2016-12-18 12:02] LABS: WHITE BLOOD COUNT 12.8 TH/MM3 (4.0-11.0)
[2016-12-18 12:03] LABS: AUTOMATED NEUTROPHIL # 11.5 TH/MM3 (1.8-7.7); BASOPHIL % 0.4 % (0.0-2.0); EOSINOPHIL # 0.1 TH/MM3 (0-0.4); EOSINOPHIL % 0.5 % (0.0-4.0); HEMATOCRIT 29.6 % (35.0-46.0); HEMOGLOBIN 10.1 GM/DL (11.6-15.3); LYMPH % 5.4 % (9.0-44.0); LYMPHOCYTE # 0.7 TH/MM3 (1.0-4.8); MEAN CELL VOLUME 89.3 FL (80.0-100.0); MEAN CORPUSCULAR HEMOGLOBIN 30.6 PG (27.0-34.0); MEAN CORPUSCULAR HGB CONC 34.3 % (32.0-36.0); MEAN PLATELET VOLUME 10.2 FL (7.0-11.0); MONO % 4.3 % (0.0-8.0); MONOCYTE # 0.6 TH/MM3 (0-0.9); NEUT % 89.4 % (16.0-70.0); PLATELET COUNT 59 TH/MM3 (150-450); RED BLOOD COUNT 3.31 MIL/MM3 (4.00-5.30); RED CELL DISTRIBUTION WIDTH 17.8 % (11.6-17.2)
--- NOTE | 2016-12-18 13:10 | PD.ONC.PN ---
Subjective Subjective Remarks Afebrile overnight. Extubated yesterday. Currently refusing any further invasive procedures. Refused ERCP. Objective Data Date Time Temp Pulse Resp B/P (MAP) Pulse Ox O2 Delivery O2 Flow Rate FiO2 12/18/16 07:00 97 Nasal Cannula 4.00 12/18/16 06:00 108 12/18/16 04:00 102 12/18/16 04:00 108 18 133/64 (87) 98 12/18/16 02:00 165 12/18/16 00:00 166 18 141/70 (93) 97 12/18/16 00:00 165 12/17/16 23:00 179 12/17/16 22:00 115 12/17/16 20:00 104 22 155/72 (99) 95 12/17/16 20:00 104 12/17/16 19:16 97 Nasal Cannula 4.00 12/17/16 18:00 96 21 148/75 (99) 97 12/17/16 17:00 94 21 157/76 (103) 97 12/17/16 16:30 97 Nasal Cannula 4 12/17/16 16:30 97 Nasal Cannula 4.00 12/17/16 16:00 97.9 98 19 147/82 (103) 98 12/17/16 15:00 96 14 142/70 (94) 97 12/17/16 14:00 84 15 149/74 (99) 97 12/18/16 12/18/16 12/18/16 07:00 15:00 23:00 Intake Total 0 ml Output Total 680 ml Balance -680 ml Result Diagram: 12/18/16 1138 12/17/16 0420 Laboratory Results Laboratory Tests Test 12/17/16 15:56 12/18/16 11:38 Blood Gas Puncture Site RT RADIAL Blood Gas Patient Temperature 98.6 Blood Gas HCO3 24 mmol/L Blood Gas Base Excess 1.0 mmol/L Blood Gas Oxygen Saturation 94 % Arterial Blood pH 7.48 Arterial Blood Partial Pressure CO2 33 mmHg Arterial Blood Partial Pressure O2 84 mmHg Arterial Blood Oxygen Content 12.7 Vol % Arterial Blood Carboxyhemoglobin 2.1 % Arterial Blood Methemoglobin 1.3 % Blood Gas Hemoglobin 9.6 G/DL Oxygen Delivery Device VENTILATOR Blood Gas Ventilator Setting CPAP Blood Gas Inspired Oxygen 35 % White Blood Count 12.8 TH/MM3 Red Blood Count 3.31 MIL/MM3 Hemoglobin 10.1 GM/DL Hematocrit 29.6 % Mean Corpuscular Volume 89.3 FL Mean Corpuscular Hemoglobin 30.6 PG Mean Corpuscular Hemoglobin Concent 34.3 % Red Cell Distribution Width 17.8 % Platelet Count 59 TH/MM3 Mean Platelet Volume 10.2 FL Neutrophils (%) (Auto) 89.4 % Lymphocytes (%) (Auto) 5.4 % Monocytes (%) (Auto) 4.3 % Eosinophils (%) (Auto) 0.5 % Basophils (%) (Auto) 0.4 % Neutrophils # (Auto) 11.5 TH/MM3 Lymphocytes # (Auto) 0.7 TH/MM3 Monocytes # (Auto) 0.6 TH/MM3 Eosinophils # (Auto) 0.1 TH/MM3 Basophils # (Auto) 0.0 TH/MM3 CBC Comment AUTO DIFF Hematology Comments Administered Medications Medications (Trade) Dose Ordered Sig/Dhruv Route PRN Reason Start Time Stop Time Status Last Admin Dose Admin Sodium Chloride (NS Flush) 2 ml UNSCH PRN IV FLUSH FLUSH AFTER USING IV ACCESS 12/02/16 16:15 12/14/16 03:11 Sodium Chloride (NS Flush) 2 ml BID IV FLUSH 12/02/16 21:00 12/17/16 13:42 Famotidine (Pepcid Inj) 20 mg DAILY IV PUSH 12/02/16 21:00 12/17/16 13:42 Heparin Sodium (Porcine) (Heparin Inj) 5,000 units Q12H SQ 12/02/16 17:00 Future Hold 12/13/16 14:53 Miscellaneous Information 1 Q361D XX 12/02/16 16:15 12/02/16 16:15 Chlorhexidine Gluconate (Chlorhexidine 2% Cloth) Taper DAILY@04 TOP 12/03/16 04:00 11/29/17 03:59 12/14/16 21:22 Senna/Docusate Sodium (Keely-Colace) 1 tab BID PO 12/02/16 21:00 12/16/16 20:57 Lorazepam (Ativan Inj) 1 mg Q4H PRN IV PUSH ANXIETY 12/02/16 16:45 12/16/16 03:34 Chlorhexidine Gluconate (Peridex 0.12% Liq) 15 ml BID@08,20 MT 12/03/16 08:00 12/16/16 21:00 Sodium Chloride (NS Flush) DAILY IV FLUSH 12/03/16 09:00 12/16/16 08:02 Sodium Chloride (NS Flush) UNSCH PRN IV FLUSH SEE PROTOCOL 12/02/16 23:15 12/06/16 20:52 Artificial Tears (Tears Naturale Opth Soln) 1 drop Q8HR PRN EACH EYE DRY EYE 12/03/16 08:15 12/04/16 17:22 Sodium Chloride 1,000 ml @ 0 mls/hr UNSCH PRN OTHER SEE LABEL COMMENTS 12/05/16 17:30 12/07/16 02:14 Sodium Chloride 1,000 ml @ 0 mls/hr Q0M PRN OTHER For Prime & Rinse Back 12/07/16 10:56 12/15/16 09:56 Albumin Human 100 ml @ 60 mls/hr UNSCH PRN IV WITH DIALYSIS 12/07/16 11:00 12/15/16 09:58 Sodium Chloride (NS Flush) 5 ml UNSCH PRN IV FLUSH WITH DIALYSIS 12/07/16 11:00 12/15/16 09:56 Gentamicin Sulfate (Gentamicin (Dialysis) Inj) 20 mg UNSCH PRN OTHER WITH DIALYSIS 12/07/16 11:00 12/15/16 09:56 Epoetin Ronald (Epogen Inj) 10,000 units UNSCH PRN IV PUSH WITH DIALYSIS 12/07/16 11:00 12/15/16 09:56 Diltiazem HCl (Cardizem) 60 mg Q6HR PO 12/12/16 08:15 12/17/16 13:41 Insulin Human Regular (NovoLIN R SUPPLEMENTAL SCALE) 1 Q6H SQ 12/13/16 14:00 12/16/16 20:00 Oxycodone HCl (Roxicodone Intensol Liq) 5 mg Q6H PRN PO PAIN 1-7 12/15/16 17:45 12/16/16 16:32 Oxycodone HCl (Roxicodone Intensol Liq) 10 mg Q6H PRN PO PAIN 8-10 12/16/16 17:45 12/17/16 04:42 Objective Remarks GENERAL: Pleasant, chronically ill appearing female supine in bed. SKIN: Warm and dry. HEAD: Normocephalic. EYES: No injection or drainage. NECK: Supple, trachea midline. CARDIOVASCULAR: Regular rate and rhythm RESPIRATORY: Breath sounds equal bilaterally. No accessory muscle use. GASTROINTESTINAL: Abdomen soft, non-tender, nondistended. EXTREMITIES: No cyanosis NEUROLOGICAL: awake but groggy. following commands. answering questions Assessment/Plan Problem List: (1) Pancytopenia ICD Codes: D61.818 - Other pancytopenia Plan: 12/18: platelets stable. monitor for bleeding. monitor CBC --due to bone marrow suppression from sepsis. --monitor her CBC closely and provide blood product support as needed. (2) Sepsis ICD Codes: A41.9 - Sepsis, unspecified organism Status: Acute (3) Acute kidney injury ICD Codes: N17.9 - Acute kidney failure, unspecified Status: Acute Plan: --receiving HD on Assessment 71 y/o female with coagulopathy d/t sepsis. Attending Statement EXTUBATED. Pt has decline further therapy has elected for hospice for [facility] [place] The exam, history, and the medical decision-making described in the above note were completed with the assistance of the mid-level provider. I reviewed and agree with the findings presented. I attest that I had a [id number] encounter with the patient on the same day, and personally performed and documented my assessment and findings in the medical record. Problem Qualifiers (1) Sepsis: Qualified Codes: A41.9 - Sepsis, unspecified organism Tatum Proctor Dec 18, 2016 13:10 Lana Justice MD Dec 18, 2016 20:45
--- NOTE | 2016-12-18 18:15 | HHI.PR ---
Subjective Active Medications Current Medications Medications (Trade) Dose Ordered Sig/Dhruv Route Start Time Stop Time Status Last Admin (NS Flush) 2 ml UNSCH PRN IV FLUSH 12/02/16 16:15 12/14/16 03:11 (NS Flush) 2 ml BID IV FLUSH 12/02/16 21:00 12/17/16 13:42 (Tylenol) 650 mg Q6H PRN PO 12/02/16 16:15 (Pepcid Inj) 20 mg DAILY IV PUSH 12/02/16 21:00 12/17/16 13:42 (Heparin Inj) 5,000 units Q12H SQ 12/02/16 17:00 Future Hold 12/13/16 14:53 Miscellaneous Information 1 Q361D XX 12/02/16 16:15 12/02/16 16:15 (Chlorhexidine 2% Cloth) Taper DAILY@04 TOP 12/03/16 04:00 11/29/17 03:59 12/14/16 21:22 (Chlorhexidine 2% Cloth) 3 pack UNSCH PRN TOP 12/02/16 16:15 (Keely-Colace) 1 tab BID PO 12/02/16 21:00 12/16/16 20:57 (Milk Of Magnesia Liq) 30 ml Q12H PRN PO 12/02/16 16:15 (Senokot) 17.2 mg Q12H PRN PO 12/02/16 16:15 (Dulcolax Supp) 10 mg DAILY PRN RECTAL 12/02/16 16:15 (Lactulose Liq) 30 ml DAILY PRN PO 12/02/16 16:15 (D50w (Vial) Inj) 50 ml UNSCH PRN IV PUSH 12/02/16 16:45 (Glucagon Inj) 1 mg UNSCH PRN OTHER 12/02/16 16:45 (Ativan Inj) 1 mg Q4H PRN IV PUSH 12/02/16 16:45 12/16/16 03:34 (Peridex 0.12% Liq) 15 ml BID@08,20 MT 12/03/16 08:00 12/16/16 21:00 (NS Flush) DAILY IV FLUSH 12/03/16 09:00 12/16/16 08:02 (NS Flush) UNSCH PRN IV FLUSH 12/02/16 23:15 12/06/16 20:52 (Tears Naturale Opth Soln) 1 drop Q8HR PRN EACH EYE 12/03/16 08:15 12/04/16 17:22 (Duoneb Neb) 1 ampule Q2HR NEB PRN NEB 12/03/16 09:00 (Brethine Inj) 1 mg UNSCH PRN SQ 12/03/16 17:15 Sodium Chloride 1,000 ml @ 0 mls/hr UNSCH PRN OTHER 12/05/16 17:30 12/07/16 02:14 (Heparin Inj) 8,000 units WITH DIALYSIS PRN IV PUSH 12/05/16 17:30 (KCl 20 Meq Premix Inj) PLACE 12.5 ML OF 20 MEQ ... UNSCH PRN OTHER 12/05/16 17:45 Sodium Chloride 1,000 ml @ 0 mls/hr Q0M PRN OTHER 12/07/16 10:56 12/15/16 09:56 Sodium Chloride 1,000 ml @ 200 mls/hr Q5H PRN IV 12/07/16 10:56 Sodium Chloride 1,000 ml @ 0 mls/hr Q0M PRN OTHER 12/07/16 10:56 (Mannitol Inj) 12.5 gm UNSCH PRN IV 12/07/16 11:00 Albumin Human 100 ml @ 60 mls/hr UNSCH PRN IV 12/07/16 11:00 12/15/16 09:58 (NS Flush) 5 ml UNSCH PRN IV FLUSH 12/07/16 11:00 12/15/16 09:56 (Heparin Inj) UNSCH PRN .XX 12/07/16 11:00 (Gentamicin (Dialysis) Inj) 20 mg UNSCH PRN OTHER 12/07/16 11:00 12/15/16 09:56 (Zofran Inj) 4 mg UNSCH PRN IV PUSH 12/07/16 11:00 (Tylenol) 650 mg UNSCH PRN PO 12/07/16 11:00 (Benadryl) 25 mg UNSCH PRN PO 12/07/16 11:00 (Nitrostat Sl) 0.4 mg UNSCH PRN SL 12/07/16 11:00 (Catapres) 0.1 mg UNSCH PRN PO 12/07/16 11:00 (Epogen Inj) 10,000 units UNSCH PRN IV PUSH 12/07/16 11:00 12/15/16 09:56 (Gelfoam 12 Mm/7 Mm Top) 1 foam UNSCH PRN TOP 12/07/16 11:00 (Cardizem) 60 mg Q6HR PO 12/12/16 08:15 12/17/16 13:41 (NovoLIN R SUPPLEMENTAL SCALE) 1 Q6H SQ 12/13/16 14:00 12/16/16 20:00 (NS Flush) UNSCH PRN IV FLUSH 12/13/16 14:45 (Heparin Inj) UNSCH PRN IV FLUSH 12/13/16 14:45 (Roxicodone Intensol Liq) 5 mg Q6H PRN PO 12/15/16 17:45 12/16/16 16:32 (Roxicodone Intensol Liq) 10 mg Q6H PRN PO 12/16/16 17:45 12/17/16 04:42 Allergies Allergies Coded Allergies No Known Allergies ([id number]/15/17) Exam I&O / VS Vital Signs Date Time Temp Pulse Resp B/P (MAP) Pulse Ox O2 Delivery O2 Flow Rate FiO2 12/18/16 16:00 102 21 94 12/18/16 15:00 102 16 96 12/18/16 14:00 97 22 100 12/18/16 13:00 93 17 100 12/18/16 12:00 97 20 100 12/18/16 10:00 100 20 99 12/18/16 09:00 105 24 12/18/16 08:00 101 22 169/89 (115) 100 12/18/16 07:00 97 Nasal Cannula 4.00 12/18/16 06:00 108 12/18/16 04:00 102 12/18/16 04:00 108 18 133/64 (87) 98 12/18/16 02:00 165 12/18/16 00:00 166 18 141/70 (93) 97 12/18/16 00:00 165 12/17/16 23:00 179 12/17/16 22:00 115 12/17/16 20:00 104 22 155/72 (99) 95 12/17/16 20:00 104 12/17/16 19:16 97 Nasal Cannula 4.00 Objective Micro and Labs Laboratory Tests Test 12/18/16 11:38 12/18/16 13:40 White Blood Count 12.8 Red Blood Count 3.31 Hemoglobin 10.1 Hematocrit 29.6 Mean Corpuscular Volume 89.3 Mean Corpuscular Hemoglobin 30.6 Mean Corpuscular Hemoglobin Concent 34.3 Red Cell Distribution Width 17.8 Platelet Count 59 Mean Platelet Volume 10.2 Neutrophils (%) (Auto) 89.4 Lymphocytes (%) (Auto) 5.4 Monocytes (%) (Auto) 4.3 Eosinophils (%) (Auto) 0.5 Basophils (%) (Auto) 0.4 Neutrophils # (Auto) 11.5 Lymphocytes # (Auto) 0.7 Monocytes # (Auto) 0.6 Eosinophils # (Auto) 0.1 Basophils # (Auto) 0.0 CBC Comment AUTO DIFF Differential Comment AUTO DIFF CONFIRMED Platelet Estimate LOW Platelet Morphology Comment NORMAL Hematology Comments Date/Time Source Procedure Growth Status 12/09/16 15:13 Blood Peripheral Aerobic Blood Culture - Final NO GROWTH IN 5 DAYS Complete 12/09/16 15:13 Blood Peripheral Anaerobic Blood Culture - Final NO GROWTH IN 5 DAYS Complete 12/03/16 14:55 Fluid Bile Fluid Gram Stain - Final Complete 12/03/16 14:55 Body Fluid Culture - Final Enterococcus Faecalis Complete 12/12/16 17:20 Sputum Endotracheal Gram Stain - Final Complete 12/12/16 17:20 Sputum Culture - Final Stenotrophomonas Maltophilia Complete 12/09/16 18:00 Urine Catheterized Urine Urine Culture - Final NO GROWTH IN 48 HOURS. Complete Viviana Mullen MD Dec 18, 2016 18:15
--- NOTE | 2016-12-18 18:41 | HHI.PR ---
Review/Management Daily Summary NOTE ENTERED EARLIER TODAY ON WRONG PATIENT, PLEASE DISCONSIDER THIS PATIENT WAS NOT SEEN TODAY Subjective Allergies Exam I&O / VS Vital Signs Date Time Temp Pulse Resp B/P (MAP) Pulse Ox O2 Delivery O2 Flow Rate FiO2 12/18/16 16:00 102 21 94 12/18/16 15:00 102 16 96 12/18/16 14:00 97 22 100 12/18/16 13:00 93 17 100 12/18/16 12:00 97 20 100 12/18/16 10:00 100 20 99 12/18/16 09:00 105 24 12/18/16 08:00 101 22 169/89 (115) 100 12/18/16 07:00 97 Nasal Cannula 4.00 12/18/16 06:00 108 12/18/16 04:00 102 12/18/16 04:00 108 18 133/64 (87) 98 12/18/16 02:00 165 12/18/16 00:00 166 18 141/70 (93) 97 12/18/16 00:00 165 12/17/16 23:00 179 12/17/16 22:00 115 12/17/16 20:00 104 22 155/72 (99) 95 12/17/16 20:00 104 12/17/16 19:16 97 Nasal Cannula 4.00 Objective Micro and Labs Laboratory Tests Test 12/18/16 11:38 12/18/16 13:40 White Blood Count 12.8 Red Blood Count 3.31 Hemoglobin 10.1 Hematocrit 29.6 Mean Corpuscular Volume 89.3 Mean Corpuscular Hemoglobin 30.6 Mean Corpuscular Hemoglobin Concent 34.3 Red Cell Distribution Width 17.8 Platelet Count 59 Mean Platelet Volume 10.2 Neutrophils (%) (Auto) 89.4 Lymphocytes (%) (Auto) 5.4 Monocytes (%) (Auto) 4.3 Eosinophils (%) (Auto) 0.5 Basophils (%) (Auto) 0.4 Neutrophils # (Auto) 11.5 Lymphocytes # (Auto) 0.7 Monocytes # (Auto) 0.6 Eosinophils # (Auto) 0.1 Basophils # (Auto) 0.0 CBC Comment AUTO DIFF Differential Comment AUTO DIFF CONFIRMED Platelet Estimate LOW Platelet Morphology Comment NORMAL Hematology Comments Date/Time Source Procedure Growth Status 12/09/16 15:13 Blood Peripheral Aerobic Blood Culture - Final NO GROWTH IN 5 DAYS Complete 12/09/16 15:13 Blood Peripheral Anaerobic Blood Culture - Final NO GROWTH IN 5 DAYS Complete 12/03/16 14:55 Fluid Bile Fluid Gram Stain - Final Complete 12/03/16 14:55 Body Fluid Culture - Final Enterococcus Faecalis Complete 12/12/16 17:20 Sputum Endotracheal Gram Stain - Final Complete 12/12/16 17:20 Sputum Culture - Final Stenotrophomonas Maltophilia Complete 12/09/16 18:00 Urine Catheterized Urine Urine Culture - Final NO GROWTH IN 48 HOURS. Complete Viviana Mullen MD Dec 18, 2016 18:41
== END 2016-12-18 19:30 | disposition hospice, inpatient (51) | DRG 870 ==
LOC: NEPE 12:06 → NEDA 16:08 → HIME 19:55
PROVIDERS: ADMIT Anesthesiology; ATTEND Anesthesiology
PROC: 5A1955Z Respiratory Ventilation, Greater than 96 Consecutive Hours (ICD-10-PCS; principal; 2016-12-02)
PROC: 04HY32Z Insertion of Monitoring Device into Lower Artery, Percutaneous Approach (ICD-10-PCS; 2016-12-02)
PROC: 0BH18EZ Insertion of Endotracheal Airway into Trachea, Via Natural or Artificial Opening Endoscopic (ICD-10-PCS; 2016-12-02)
PROC: 02HV33Z Insertion of Infusion Device into Superior Vena Cava, Percutaneous Approach (ICD-10-PCS; 2016-12-02)
PROC: 0F9430Z Drainage of Gallbladder with Drainage Device, Percutaneous Approach (ICD-10-PCS; 2016-12-03)
PROC: BF121ZZ Fluoroscopy of Gallbladder using Low Osmolar Contrast (ICD-10-PCS; 2016-12-03)
PROC: 06HM33Z Insertion of Infusion Device into Right Femoral Vein, Percutaneous Approach (ICD-10-PCS; 2016-12-05)
PROC: 5A1D70Z Performance of Urinary Filtration, Intermittent, Less than 6 Hours Per Day (ICD-10-PCS; 2016-12-06)
PROC: 30233K1 Transfusion of Nonautologous Frozen Plasma into Peripheral Vein, Percutaneous Approach (ICD-10-PCS; 2016-12-06)
PROC: 0DH68UZ Insertion of Feeding Device into Stomach, Via Natural or Artificial Opening Endoscopic (ICD-10-PCS; 2016-12-07)
PROC: 30233R1 Transfusion of Nonautologous Platelets into Peripheral Vein, Percutaneous Approach (ICD-10-PCS; 2016-12-07)
PROC: 30233N1 Transfusion of Nonautologous Red Blood Cells into Peripheral Vein, Percutaneous Approach (ICD-10-PCS; 2016-12-12)
PROC: 02HV33Z Insertion of Infusion Device into Superior Vena Cava, Percutaneous Approach (ICD-10-PCS; 2016-12-13)
PROC: 0F24X0Z Change Drainage Device in Gallbladder, External Approach (ICD-10-PCS; 2016-12-14)
DX: A41.59 Other Gram-negative sepsis (principal); J96.01 Acute respiratory failure with hypoxia; D65 Disseminated intravascular coagulation [defibrination syndrome]; N17.0 Acute kidney failure with tubular necrosis; R65.21 Severe sepsis with septic shock; R57.0 Cardiogenic shock; G93.40 Encephalopathy, unspecified; K83.0 Cholangitis; D61.818 Other pancytopenia; N18.3 Chronic kidney disease, stage 3 (moderate); R53.2 Functional quadriplegia; I50.23 Acute on chronic systolic (congestive) heart failure; G62.81 Critical illness polyneuropathy; K80.01 Calculus of gallbladder with acute cholecystitis with obstruction; E87.2 Acidosis; K80.11 Calculus of gallbladder with chronic cholecystitis with obstruction; N39.0 Urinary tract infection, site not specified; E46 Unspecified protein-calorie malnutrition; K52.1 Toxic gastroenteritis and colitis; H70.003 Acute mastoiditis without complications, bilateral; I13.0 Hypertensive heart and chronic kidney disease with heart failure and stage 1 through stage 4 chronic kidney disease, or unspecified chronic kidney disease; K57.92 Diverticulitis of intestine, part unspecified, without perforation or abscess without bleeding; I48.91 Unspecified atrial fibrillation; A41.51 Sepsis due to Escherichia coli [E. coli]; E83.42 Hypomagnesemia; E87.6 Hypokalemia; I25.10 Atherosclerotic heart disease of native coronary artery without angina pectoris; E78.5 Hyperlipidemia, unspecified; G89.29 Other chronic pain; M41.9 Scoliosis, unspecified; R04.0 Epistaxis; Z66 Do not resuscitate; Z51.5 Encounter for palliative care; B95.2 Enterococcus as the cause of diseases classified elsewhere; B96.20 Unspecified Escherichia coli [E. coli] as the cause of diseases classified elsewhere; B96.89 Other specified bacterial agents as the cause of diseases classified elsewhere; T36.95XA Adverse effect of unspecified systemic antibiotic, initial encounter; I25.2 Old myocardial infarction; I27.20 Pulmonary hypertension, unspecified; K44.9 Diaphragmatic hernia without obstruction or gangrene; J32.3 Chronic sphenoidal sinusitis; S51.812A Laceration without foreign body of left forearm, initial encounter; Z98.61 Coronary angioplasty status; Z87.891 Personal history of nicotine dependence
CPT/HCPCS: 31500; 36430; 36556; 36600; 47490; 47531; 70450; 70551; 71010; 71250; 72141; 74000; 74150; 74176; 74181; 76377; 76705; 76937; 77001; 80048; 80053; 80061; 80074; 80076; 80202; 81001; 82103; 82105; 82140; 82390; 82550; 82552; 82570; 82607; 82728; 82805; 82948; 83520; 83540; 83550; 83605; 83690; 83735; 83880; 83935; 84100; 84132; 84155; 84300; 84425; 84484; 85007; 85014; 85018; 85025; 85027; 85384; 85610; 85730; 86022; 86038; 86255; 86850; 86900; 86901; 86920; 86927; 86965; 87040; 87070; 87077; 87086; 87186; 87205; 87449; 87493; 87641; 87804; 90935; 93005; 93306; 94002; 94003; 94150; 94640; 94664; 95819; 96361; 96365; 96367; 96374; 96375; C1729; C1752; C1769; J0610; J0692; J1580; J1644; J1720; J1956; J2060; J2248; J2250; J2270; J2370; J2543; J2765; J2997; J3010; J3370; J3411; J3475; J3480; J7030; J7040; J7050; J7060; J7070; P9016; P9017; P9035; P9047; P9612; Q4081; Q9963; Q9967